=== PATIENT | male | born 1945 | race Caucasian/White ===

== ENCOUNTER → 2017-07-27 | Outpatient (CLI) | payer MEDICARE, BC ==
--- NOTE | 2017-07-27 08:59 | FL ---
EXAMINATION TYPE: FL barium swallow DATE OF EXAM: 07/27/2017 CLINICAL HISTORY: Dysphasia per order. Food getting stuck mid to distal esophagus increasing in sever ity over last several months history of reflux and cough per patient. History of prior scopes per pat ient. TECHNIQUE: A double contrast esophagram is performed utilizing air and barium. A total of 47 second s of fluoroscopic time was utilized during procedure. Approximately 70 spot images were saved during procedure and sent to PACS. COMPARISON: CT abdomen pelvis November 02, 2013 FINDINGS: The esophagus shows some episodes of dysmotility with abnormal secondary and tertiary contr actions. There is a small sliding-type hiatal hernia is seen. No suspicious intraluminal mass or foca l stricture is identified. No significant gastroesophageal reflux was seen during real time performan ce of this study. IMPRESSION: Some esophageal dysmotility with small sliding-type hiatal hernia. No stricture is eviden t.
== END | disposition home or self-care (01) ==
LOC: RADFLMAIN 08:01
PROVIDERS: ATTEND Family Medicine
DX: K22.4 Dyskinesia of esophagus (principal); K44.9 Diaphragmatic hernia without obstruction or gangrene
CPT/HCPCS: 74220

== ENCOUNTER 2017-09-29 09:56 | Day surgery (SDC) | payer BC, MEDICARE ==
[2017-09-27 12:56] VITALS: BMI 43.5
[~2017-09-29 09:56] MED LIST: LACTATED RINGERS 1,000 ML IV SCH; LIDOCAINE 1% 20 ML VIAL (10MG/ML) FOR IV START INTRADERMA PRN
[2017-09-29 10:27] VITALS: TEMP 98
[2017-09-29] MEDS ORDERED: LIDOCAINE 1% INJ 10MG/ML (20 ML MDV) ONE (10:53)
[2017-09-29] MEDS ORDERED: PROPOFOL 10 MG/ML 20 ML VIAL IV ONE (10:53)
--- NOTE | 2017-09-29 11:16 | P.PCN ---
Date of Procedure: 09/29/17 Procedure(s) Performed: Brief history: Patient is a pleasant 72-year-old white male, scheduled for an elective upper endoscopy as well as colonoscopy as a part of evaluation of abdominal pain, intermittent dysphagia to solids and prior history of colon polyps. Last colonoscopy was 9 years ago. Procedure performed: Esophagogastroduodenoscopy with biopsy Colonoscopy with snare polypectomy Preoperative diagnosis: Intermittent dysphagia to solids History of colon polyps [place] [facility] [place] [facility] [place]: After informed consent was obtained from the patient was brought into the endoscopy unit and IV sedation was administered by anesthesia under continuous monitoring. Initially upper endoscopy was done. The Olympus GF 160 video endoscope was inserted inserted into the mouth and esophagus intubated without any difficulty and was gradually advanced into the stomach and duodenum and carefully examined. The bulb and second part of the duodenum appeared normal. The scope was then withdrawn into the stomach adequately insufflated with air and upon careful examination the antrum had mild gastritis and biopsies were done from this area. The body, cardia and fundus appeared normal. The scope was then withdrawn into the esophagus. The GE junction was located at 40 cm to the incisors. It appeared regular with no erythema erosions or ulcerations. Rest of the esophagus appeared normal. Labs were done from the distal esophagus to rule out eosinophilic esophagitis. Patient tolerated the procedure well. At this time the patient continued to remain sedation. Initial digital rectal examination was normal. Olympus CF 160 video colonoscope was then inserted into the rectum and gradually advanced to the cecum without any difficulty. Careful examination was performed as the scope was gradually being withdrawn. The prep was excellent. The cecum, ascending colon, appeared normal. In the hepatic flexure there was a 5 mm sessile polyp removed by snare polypectomy. In the transverse colon there were 2 polyps measuring 5 mm and 6 mm in size both of which were removed by snare polypectomy. In the descending colon there was another 5 mm 2 sessile polyps removed by snare polypectomy. The rest of the transverse colon, descending colon, sigmoid colon and rectum appeared normal. Retroflexion was performed in the rectum and no lesions were noted. Patient tolerated the procedure well. Impression: 1. Upper endoscopy revealed mild antral gastritis but no evidence of esophagitis or esophageal stricture 2. Colonoscopy revealed: a) 5 mm hepatic flexure polyp status post polypectomy b) 5 mm x 2 sessile transverse colon polyps status post polypectomy c) 5 mm 2 descending colon polyps status post polypectomy Recomm colonoscopy revealed endations: Findings of this examination were discussed with the patient as well as of his family. He was advised to follow with the biopsy results. If the biopsy shows a tubular adenoma, he can have a repeat colonoscopy in 3 years.
[2017-09-29 11:35] VITALS: BP 138/87; PULSE 64; RESP 18
== END 2017-09-29 12:22 | disposition home or self-care (01) ==
LOC: ORWHC2ENDO 09:56
PROVIDERS: ATTEND Internal Medicine Gastroenterology
DX: K29.50 Unspecified chronic gastritis without bleeding (principal); K31.7 Polyp of stomach and duodenum; D12.4 Benign neoplasm of descending colon; D12.3 Benign neoplasm of transverse colon; K63.5 Polyp of colon; Z86.010 Personal history of colon polyps; K21.9 Gastro-esophageal reflux disease without esophagitis; I10 Essential (primary) hypertension; E78.5 Hyperlipidemia, unspecified; M19.90 Unspecified osteoarthritis, unspecified site; E66.01 Morbid (severe) obesity due to excess calories; Z68.41 Body mass index [BMI] 40.0-44.9, adult; Z85.828 Personal history of other malignant neoplasm of skin; Z86.73 Personal history of transient ischemic attack (TIA), and cerebral infarction without residual deficits; Z79.899 Other long term (current) drug therapy; Z79.1 Long term (current) use of non-steroidal anti-inflammatories (NSAID); Z88.5 Allergy status to narcotic agent; Z88.1 Allergy status to other antibiotic agents
CPT/HCPCS: 88305; 45385; 43239; J2001; J2704

== ENCOUNTER → 2018-08-12 | Outpatient (CLI) | payer MEDICARE, BC ==
--- NOTE | 2018-08-12 12:39 | US ---
EXAMINATION TYPE: US kidneys/renal and bladder DATE OF EXAM: 08/12/2018 COMPARISON: CT here CLINICAL HISTORY: N28.1 Multiple cysts of left kidney found on MRI; patient stated had prior renal st ones; bilateral flank pain EXAM MEASUREMENTS: Right Kidney: 13.5 x 6.9 x 7.1 cm Left Kidney: 13.4 x 9.0 x 6.3 cm Post Void Residual Volume: 38.6 mL Right Kidney: No hydronephrosis or masses seen Left Kidney: 2 simple cysts noted upper pole with larger cyst = 4.0 x 3.9 x 4.1cm. Bladder: wnl; prominent prostate is noted posteriorly Bilateral Jets seen: yes Normal Post Void Residual: yes Aorta Assessment per order: patient not NPO for aorta US, however, mid distal aorta portion is noted with left renal images, and aorta size = 2.1 x 2.3cm and color flow patency and PW Doppler is documen pradeep in this visualized portion. There is no evidence for hydronephrosis at this point in time. No nephrolithiasis is seen. The urina ry bladder is anechoic. Bilateral ureteral jets are seen. IMPRESSION: 1. Simple renal cysts as noted.
== END | disposition home or self-care (01) ==
LOC: RADUSWWP 11:01
PROVIDERS: ATTEND Family Medicine
DX: N28.1 Cyst of kidney, acquired (principal)
CPT/HCPCS: 76770

== ENCOUNTER 2018-10-09 12:41 | Inpatient (IN) | payer MEDICARE, BC ==
[2018-10-09] MEDS ORDERED: RX INFO: IV CONTRAST WAS GIVEN 1 EACH MISC MISCELLANE PRN (13:07)
[2018-10-09 13:18] LABS: Basophils # (A) 0.1 k/uL (0-0.2); Basophils % (A) 1 %; Eosinophils # (A) 0.2 k/uL (0-0.7); Eosinophils % (A) 3 %; HCT 40.2 % (39.0-53.0); HGB 13.6 gm/dL (13.0-17.5); Lymphocytes # (A) 1.6 k/uL (1.0-4.8); Lymphocytes % (A) 23 %; MCH 29.4 pg (25.0-35.0); MCHC 33.9 g/dL (31.0-37.0); MCV 86.8 fL (80.0-100.0); Mean Platelet Volume 7.8; Monocytes # (A) 0.5 k/uL (0-1.0); Monocytes % (A) 7 %; Neutrophils # (A) 4.5 k/uL (1.3-7.7); Neutrophils % (A) 65 %; Platelet Count 161 k/uL (150-450); RBC 4.63 m/uL (4.30-5.90); RDW 15.4 % (11.5-15.5); WBC 6.9 k/uL (3.8-10.6)
[2018-10-09 13:26] LABS: INR 0.9 (<1.2); Partial Thromboplastin Time 22.4 sec (22.0-30.0); Prothrombin Time 10.1 sec (9.0-12.0)
[2018-10-09 13:29] LABS: ALT 22 U/L (21-72); AST 25 U/L (17-59); African American GFR (CKD) >90 (>60 ml/min/1.73 sqM); Albumin 3.7 g/dL (3.5-5.0); Alkaline Phosphatase 69 U/L (38-126); Anion Gap 10 mmol/L; Blood Urea Nitrogen 21 mg/dL (9-20); Calcium 9.2 mg/dL (8.4-10.2); Carbon Dioxide 24 mmol/L (22-30); Chloride 106 mmol/L (98-107); Glucose 155 mg/dL (74-99); Magnesium 1.6 mg/dL (1.6-2.3); Sodium 140 mmol/L (137-145); Total Bilirubin 0.6 mg/dL (0.2-1.3); Total Protein 6.3 g/dL (6.3-8.2)
[2018-10-09 13:31] LABS: Appearance,Urine Clear (Clear); Bilirubin,Urine Negative (Negative); Blood,Urine Trace (Negative); Color,Urine Yellow; Glucose,Urine (UA) Negative (Negative); Hyaline Casts,Urine 1 /lpf (0-2); Ketones,Urine Negative (Negative); Leukocyte Esterase,Urine Negative (Negative); Mucus,Urine Rare /hpf; Nitrite,Urine Negative (Negative); PH, Urine 5.5 (5.0-8.0); Protein,Urine 2+ (Negative); Specific Gravity,Urine 1.011 (1.001-1.035); Squamous Epithelial Cell,Urine <1 /hpf (0-4); Urobilinogen,Urine <2.0 mg/dL (<2.0); WBC,Urine 1 /hpf (0-5)
[2018-10-09] MEDS ORDERED: MORPHINE SULFATE 4 MG/ML SYRINGE IVP STA (14:04)
--- NOTE | 2018-10-09 14:34 | XR ---
EXAMINATION TYPE: XR chest 2V DATE OF EXAM: 10/09/2018 COMPARISON: 03/01/2017 HISTORY: 73-year-old male with cough and pain TECHNIQUE: PA and lateral views FINDINGS: Heart borderline enlarged. Aorta within normal limits. Mild diffuse interstitial prominence. Mild pat tracy left basilar opacity. No pleural effusion. IMPRESSION: Borderline heart size and chronic appearing changes though with some patchy left basilar atelectasis and/or early infiltrate.
--- NOTE | 2018-10-09 14:38 | CT ---
EXAMINATION TYPE: CT chest w con DATE OF EXAM: 10/09/2018 COMPARISON: 02/03/2012 HISTORY: 73-year-old male chest pain, murmur, rule out dissection TECHNIQUE: Contiguous axial scanning of the chest after the administration of 100 mL of Isovue 300. Coronal/sagittal reconstructions performed. CT DLP: 1290.6mGycm. Automatic exposure control utilized for a dose reduction. FINDINGS: Heart upper limits of normal in size without pericardial effusion. Aortic valvular calcifications are present as well as coronary vessel calcifications. Ascending aorta ectatic at 3.7 cm. There is variant takeoff of the left vertebral artery directly fro m the aortic arch. Ectasia upper descending thoracic aorta 3.4 cm. No abnormal mural based thickening to suggest acute intramural hematoma. No evidence for aortic disse ction. Mild bilateral gynecomastia. No thoracic lymphadenopathy by CT size criteria. Strandy bibasilar atelectasis both more focal mild patchy inferior lingular opacity also favored to r epresent atelectasis. Low attenuation of the hepatic parenchyma suggesting fatty infiltration. Partially visualized 4.6 cm left renal cyst. Cholecystectomy clips. Bones: Endplate spondylosis throughout the thoracic spine. Bridging changes compatible with dish. IMPRESSION: 1. No evidence for aortic dissection. 2. Ectatic ascending aorta (3.7 cm) and upper descending thoracic aorta at 3.4 cm. 3. Strandy bibasilar areas of atelectasis and more focal patchy inferior lingular opacity also favore d to represent atelectasis rather than infiltrate.
[2018-10-09] MEDS ORDERED: MAGNESIUM SULFATE-D5W PMX 1 GM in DEXTROSE/WATER 1 100ML.BAG IVPB ONE (15:12)
[2018-10-09] MEDS ORDERED: HEPARIN SODIUM,PORCINE 5,000 UNIT/ML 1 ML VIAL IV PRN (15:16)
[2018-10-09] MEDS ORDERED: HEPARIN SODIUM,PORCINE 5,000 UNIT/ML 1 ML VIAL IV ONE (15:16)
[2018-10-09] MEDS ORDERED: NALOXONE 0.4 MG/ML 1 ML VIAL IV PRN (15:21)
--- NOTE | 2018-10-09 15:21 | ED ---
Chest Pain HPI - General Chief Complaint: Chest Pain Stated Complaint: chest pain Time Seen by Provider: 10/09/18 12:56 Source: patient, EMS Mode of arrival: EMS Limitations: no limitations - History of Present Illness Initial Comments: The patient is a 73-year-old male who presents the emergency room with reported chest pain. He states he's had the chest pain for the past 4 days. He denies a previous history of cardiac disease. The pain has been intermittent. He states that it is substernal with radiation to the middle of his back. He denies any numbness or tingling in his upper or lower extremities. Denies any weakness. There is no associated nausea, vomiting or abdominal pain. Today he was helping his daughter to do some work outside. States that when he lifted a ladder he had acute onset of the pain. Does admit that it took his breath away. He denies a cough, hemoptysis or pleuritic chest pain. Does not describe it as a ripping or tearing sensation. Denies any lower extremity edema. No calf pain. No history of DVTs or PEs. No recent surgery or prolonged immobility. EMS was called. They did provide him with an aspirin. Patient arrives to the emergency room and states that his pain is minimally present. He denies any additional symptoms include headache, visual changes, unilateral numbness or weakness. He has a large family history of cardiac disease. There are no alleviating, precipitating or modifying factors - Related Data Home Medications Medication Instructions Recorded Confirmed Lisinopril [Zestril] 20 mg PO HS 11/02/13 10/09/18 Multivitamin [Men's Multi-Vitamin] 1 tab PO DAILY 04/01/15 10/09/18 Cholecalciferol [Vitamin D3] 2,000 unit PO DAILY 09/30/15 10/09/18 Meloxicam [Mobic] 15 mg PO DAILY 03/01/17 10/09/18 Cyanocobalamin [Vitamin B-12 1,000 mcg SQ QMONTH 09/27/17 10/09/18 Injection] Cyanocobalamin (Vitamin B-12) 2,000 mcg PO DAILY 10/09/18 10/09/18 [Vitamin B-12] Omeprazole 20 mg PO DAILY 10/09/18 10/09/18 Tamsulosin HCl [Flomax] 0.4 mg PO DAILY 10/09/18 10/09/18 Allergies Allergy/AdvReac Type Severity Reaction Status Date / Time azithromycin [From Zithromax] AdvReac Nausea & Verified 10/09/18 13:26 Vomiting codeine AdvReac Nausea & Verified 10/09/18 13:26 Vomiting Review of Systems ROS Statement: Those systems with pertinent positive or pertinent negative responses have been documented in the HPI. ROS Other: All systems not noted in ROS Statement are negative. EKG Findings - EKG Comments: EKG Findings:: EKG demonstrates a normal sinus rhythm with a ventricular rate of 76. WA interval 204. QRS 110. QTc 456. EKG demonstrates a incomplete right bundle branch block. No ST segment elevations. There are inverted T waves in leads 3 and V6 Past Medical History Past Medical History: Cancer, CVA/TIA, Eye Disorder, GERD/Reflux, Hyperlipidemia, Hypertension, Osteoarthritis (OA), Prostate Disorder, Skin Disorder Additional Past Medical History / Comment(s): TIA yrs. 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 VERONICA CATARACT Past Anesthesia/Blood Transfusion Reactions: No Reported Reaction Past Psychological History: No Psychological Hx Reported Smoking Status: Never smoker Past Alcohol Use History: None Reported Past Drug Use History: None Reported - Past Family History Father Family Medical History: Congestive Heart Failure (CHF), CVA/TIA Additional Family Medical History / Comment(s): at age 68 Brother(s) Family Medical History: Cancer, COPD, Diabetes Mellitus Additional Family Medical History / Comment(s): heart problems Mother Family Medical History: Myocardial Infarction ([place]) Additional Family Medical History / Comment(s): at 79 w/ [place] General Exam Limitations: no limitations General appearance: alert, in no apparent distress Head exam: Present: atraumatic, normocephalic, normal inspection Eye exam: Present: normal appearance, PERRL, EOMI. Absent: scleral icterus, conjunctival injection, periorbital swelling ENT exam: Present: normal exam, mucous membranes moist Neck exam: Present: normal inspection. Absent: tenderness, meningismus, lymphadenopathy Respiratory exam: Present: normal lung sounds bilaterally. Absent: respiratory distress, wheezes, rales, rhonchi, stridor Cardiovascular Exam: Present: regular rate, normal rhythm, systolic murmur. Absent: diastolic murmur, rubs, gallop, clicks GI/Abdominal exam: Present: soft, normal bowel sounds, other (obese). Absent: distended, tenderness, guarding, rebound, rigid Extremities exam: Present: normal inspection, full ROM, normal capillary refill. Absent: tenderness, pedal edema, joint swelling, calf tenderness Back exam: Present: normal inspection Neurological exam: Present: alert, oriented X3, CN II-XII intact Psychiatric exam: Present: normal affect, normal mood Skin exam: Present: warm, dry, intact, normal color. Absent: rash Course Vital Signs 10/09/18 10/09/18 10/09/18 12:43 13:11 13:16 Temperature 97.9 F Pulse Rate 79 73 Respiratory 18 16 Rate Blood Pressure 137/80 140/88 Blood Pressure 137/78 [Left Arm] Blood Pressure 140/88 [Right Arm] O2 Sat by Pulse 95 97 Oximetry 10/09/18 10/09/18 10/09/18 14:39 15:33 16:29 Temperature Pulse Rate 72 73 77 Respiratory 18 16 16 Rate Blood Pressure 147/85 98/72 129/74 Blood Pressure [Left Arm] Blood Pressure [Right Arm] O2 Sat by Pulse 95 98 94 L Oximetry 10/09/18 17:36 Temperature 97.9 F Pulse Rate 72 Respiratory 16 Rate Blood Pressure 140/87 Blood Pressure [Left Arm] Blood Pressure [Right Arm] O2 Sat by Pulse 94 L Oximetry Chest Pain MDM - Differential Diagnosis AMI, ACS, PE, Pleurisy-Other, Valvular Heart Disease, GERD, Thoracic Aortic Dissection, Pneumothorax/Tension - MDM The patient was seen by myself in room 6. Upon arrival he is hooked up to continuous pulse ox and cardiac monitoring. A 12-lead EKG is performed which demonstrates a normal sinus rhythm. No acute ST segment elevations or depressions concerning for infarction. Bilateral blood pressures are obtained and are equal. Patient states that his pain is improved at this time however he is having chronic low back pain. I did provide the patient with 4 mg of morphine IV which had been previously established by EMS. Laboratory studies were conducted. A chest x-ray was performed. The patient does have a murmur identified on clinical exam. Because of this with the patient's reported radiation to the back I did recommend a CT of the thorax. The patient agreed to this. The results are reviewed. The patient's troponin does come back elevated. I did discuss this with the patient. I placed him on heparin at this time. He does have a history of pernicious anemia however his hemoglobin is 13.6. He recently had an epidural injection of the spine however no invasive spinal procedures. Denies a history of previous lifethreatening bleeding. I called and discussed the case with Dr. Gillespie who accepted admission of the patient. I will place cardiology on consult. The patient will be made nothing by mouth at midnight and we will continue to trend his troponins. Patient remained in stable condition was transported to the floor Disposition Clinical Impression: NSTEMI (non-ST elevation myocardial infarction), Chest pain, Unstable angina pectoris Disposition: ADMITTED IP TO THIS HOSP Condition: Stable Is patient prescribed a controlled substance at d/c from ED?: No Decision to Admit Reason: Admit from EC Decision Date: 10/09/18 Decision Time: 15:21
[2018-10-09] MEDS: HEPARIN SOD,PORK IN 0.45% NACL 25,000 UNIT in 0.45% NACL 1 250ML.BAG IV SCH (15:24)
[2018-10-09] MEDS ORDERED: TAMSULOSIN 0.4 MG CAP.ER.24H PO SCH (21:00)
[2018-10-09] MEDS ORDERED: LISINOPRIL 20 MG TAB PO SCH (21:00)
[2018-10-09] MEDS: TAMSULOSIN 0.4 MG CAP.ER.24H PO SCH (21:05)
[2018-10-09] MEDS: NITROGLYCERIN SL TABS 0.4 MG TAB SUBLINGUAL PRN ×3 (23:46→23:59)
[2018-10-09] MEDS ORDERED: TEMAZEPAM 15 MG CAP PO PRN (23:52)
[2018-10-09] MEDS ORDERED: ALPRAZolam 0.25 MG TAB PO PRN (23:52)
[2018-10-10] MEDS: MORPHINE SULFATE 2 MG/ML SYRINGE IVP PRN ×4 (00:12→20:25)
--- NOTE | 2018-10-10 00:30 | HP ---
HISTORY AND PHYSICAL DATE OF SERVICE: 10/09/2018 CHIEF COMPLAINT: Chest pain. HISTORY OF PRESENT ILLNESS: This 73-year-old gentleman with a past medical history of multiple medical problems including CVA, TIA, GERD, hypertension, hyperlipidemia, DJD being followed by Dr. Weathers in the outpatient is complaining of chest pain. The pain was present for 4 days. The patient had a gas bubble feeling like in the stomach and subsequently substernal pain which was heavy in character radiating sometimes sharp in character which radiated to the middle of the back. The patient came to [facility] and admitted for further evaluation and treatment. Evaluation showed EKG which showed diffuse ST-T changes, some mild right bundle branch block and the troponin is found to be 0.056 and 0.074. Cardiology consultation to evaluate and treatment. There is no history of fever, rigors. No history of headache, loss of consciousness, no history of any hematochezia, melena or shortness of breath at this time. The CT scan of the chest was done in the ER which showed no evidence of aortic dissection but ectatic ascending aorta 3 point cm and upper present and thoracic aorta 3.4 cm and bibasilar strandy areas atelectasis also noted. Please refer to the chest x-ray report for further details. PAST MEDICAL HISTORY: History of CVA, TIA, history of GERD, hypertension, hyperlipidemia, DJD, history of prostate disorder, history of transient ischemic attack. MEDICATIONS ARE: Prior to admission: 1. Flomax 0.4 daily. 2. Omeprazole 20 mg p.o. daily. 3. Multivitamins one p.o. daily. 4. Mobic 15 mg p.o. daily. 5. Zestril 20 mg p.o. q.h.s. 6. Vitamin B1 1000 mcg Q subcu monthly. 7. Vitamin B12 2000 mcg p.o. subcu daily. 8. Vitamin D3 2000 daily. ALLERGIES: ZITHROMAX AND CODEINE. FAMILY HISTORY: History of myocardial infarction in the family. SOCIAL HISTORY: No history of smoking. No history of alcohol intake. REVIEW OF SYSTEMS: ENT: No diminished vision or hearing. Cardiovascular system: As mentioned earlier. RESPIRATORY: As mentioned earlier. GI no nausea or vomiting. no dysuria or hematuria. NERVOUS SYSTEM: No numbness or weakness. ALLERGY/IMMUNOLOGY: No asthma or hayfever. MUSCULOSKELETAL as mentioned earlier. HEMATOLOGY/ONCOLOGY: No history of anemia. ENDOCRINE: No history of diabetes or hypothyroidism. CONSTITUTIONAL: As mentioned earlier. DERMATOLOGY negative. RHEUMATOLOGY: Negative. PSYCHIATRIC: As mentioned. PHYSICAL EXAMINATION: Alert and oriented times three. Pulse is 73, blood pressure 142/68, respiration 18, temperature 98.1, pulse ox 94% on room air. HEENT: Conjunctivae normal. Oral mucosa moist. NECK is no jugular venous distention. No carotid bruit. No lymph node enlargement. Cardiovascular system: S1, S2 muffled. No S3, no S4. RESPIRATORY: Breath sounds diminished in the bases. A few scattered rhonchi. No crackles. ABDOMEN: Soft, obese, nontender. No mass palpable. No guarding. No rigidity. No mass palpable. LEGS: No edema. No swelling. NERVOUS SYSTEM: Higher functions as mentioned earlier, moves all 4 limbs. No focal motor or sensory deficits. LYMPHATICS: No lymph nodes palpable in the neck, axillae or groin. JOINTS: No active deforming arthropathy. LABS: At this time shows WBC 6.9, hemoglobin 13.6, sodium 140, potassium 4, glucose 155. Troponin 0.05, 0.049. ASSESSMENT: 1. Chest pain, back pain, possible acute non ST-segment elevation myocardial infarction. 2. Troponin elevated up to 0.056. 3. Ectatic aorta. 4. Possible gastroesophageal reflux disease. 5. History of cerebrovascular accident, transient ischemic attack. 6. History of gastroesophageal reflux disease. 7. History of hyperlipidemia. 8. History of hypertension. 9. History of degenerative joint disease. 10.History of transient ischemic attack. 11.History of pernicious anemia on monthly injections. 12.History of degenerative joint disease. 13.History of cholecystectomy. 14.Bowel resection. 15.Obesity with body mass index of 46.2. RECOMMENDATIONS AND DISCUSSION: In this 73-year-old gentleman who presented with multiple complex medical issues, we will monitor the patient closely, continue the current medications, management and symptomatic treatment. I would recommend IV heparin drip, rule out possible myocardial infarction. Otherwise, we will monitor the patient closely and cardiology consultation. Prognosis guarded because of multiple complex medical issues. I would also recommend a 2D echo with Doppler and continue to monitor. The patient will require further evaluation until elicited the exact etiology for the elevated troponin. We will closely follow with Cardiology. Prognosis guarded. Discussed with the patient who understands and agrees. Please note there is no evidence of dissection in the CT scan. Copy of dictation being forwarded to Dr. Weathers's office. MMODL / IJN: [id number] /
[2018-10-10 04:45] LABS: Basophils # (A) 0.1 k/uL (0-0.2); Basophils % (A) 1 %; Eosinophils # (A) 0.3 k/uL (0-0.7); Eosinophils % (A) 5 %; HCT 39.7 % (39.0-53.0); HGB 13.4 gm/dL (13.0-17.5); Lymphocytes # (A) 1.7 k/uL (1.0-4.8); Lymphocytes % (A) 26 %; MCH 29.9 pg (25.0-35.0); MCHC 33.6 g/dL (31.0-37.0); MCV 89.1 fL (80.0-100.0); Mean Platelet Volume 7.5; Monocytes # (A) 0.4 k/uL (0-1.0); Monocytes % (A) 7 %; Neutrophils # (A) 3.8 k/uL (1.3-7.7); Neutrophils % (A) 59 %; Platelet Count 156 k/uL (150-450); RBC 4.46 m/uL (4.30-5.90); RDW 15.4 % (11.5-15.5); WBC 6.5 k/uL (3.8-10.6)
[2018-10-10 04:55] LABS: African American GFR (CKD) >90 (>60 ml/min/1.73 sqM); Anion Gap 4 mmol/L; Blood Urea Nitrogen 22 mg/dL (9-20); Calcium 8.8 mg/dL (8.4-10.2); Carbon Dioxide 28 mmol/L (22-30); Chloride 106 mmol/L (98-107); Glucose 147 mg/dL (74-99); Potassium 4.3 mmol/L (3.5-5.1); Sodium 138 mmol/L (137-145)
[2018-10-10] MEDS ORDERED: ALPRAZolam 0.25 MG TAB PO PRN (07:54)
[2018-10-10] MEDS ORDERED: ALPRAZolam 0.5 MG TAB PO PRN (07:54)
[2018-10-10] MEDS ORDERED: SODIUM CHLORIDE 0.9% 1,000 ML in EMPTY BAG 1 BAG IV ONE (07:54)
[2018-10-10] MEDS ORDERED: ATORVASTATIN 80 MG TAB PO STA (07:57)
[2018-10-10] MEDS ORDERED: ASPIRIN 325 MG TAB PO STA (07:57)
[2018-10-10 08:17] LABS: Glucose,Whole Blood 127 mg/dL (75-99)
[2018-10-10] MEDS: MULTIVITAMINS, THERA 1 EACH TAB PO SCH (08:20)
[2018-10-10] MEDS: PANTOPRAZOLE 40 MG TABLET PO SCH (08:20)
[2018-10-10] MEDS: CHOLECALCIFEROL 1,000 UNIT TAB PO SCH (08:20)
[2018-10-10] MEDS ORDERED: CYANOCOBALAMIN 1,000 MCG/ML 1 ML VIAL SQ SCH (09:00)
[2018-10-10] MEDS ORDERED: MELOXICAM 7.5 MG TAB PO SCH (09:00)
[2018-10-10] MEDS ORDERED: TAMSULOSIN 0.4 MG CAP.ER.24H PO SCH (09:00)
--- NOTE | 2018-10-10 11:42 | CONS ---
CONSULTATION Alirio Pimentel is a 73-year-old gentleman, a patient of Dr. Jose Little who came into the hospital with complaints of chest pressure and shortness of breath. This gentleman is morbidly obese, weighs over 340 pounds. He was trying to do something with the roof and he picked up a 30 foot ladder and he tried to do some physical activity with it, felt very exhausted, had chest pain and came into the hospital. He has multiple medical problems in the form of a TIA, hypertension, hyperlipidemia, degenerative joint disease and also gastroesophageal reflux disease. He had a dobutamine echo that was performed in late 2016 which did not reveal ischemia. At the time of my evaluation, he is comfortable, resting without symptoms. Troponin shows borderline enlargement. Patient had a CT scan of the chest done and there is no evidence of any aortic pathology noted. There is mild ectasia of the aorta noted. He is asymptomatic. His troponins are up to 0.05 and 0.07. PAST MEDICAL HISTORY: 1. History of a normal dobutamine stress echo in February 2017. 2. Hypertension. 3. Hyperlipidemia. 4. Question of TIA in the past. Details are unclear. He also had some skin cancer. 5. He is status post bilateral total knee arthroplasty, had some chronic lower extremity edema. MEDICATIONS: At home include Flomax, meloxicam, vitamin supplements, lisinopril 20 mg daily. ALLERGIES: ZITHROMAX and CODEINE. PHYSICAL EXAMINATION: Blood pressure is 120/70, pulse rate 70 per minute, regular. HEENT: Unremarkable. Fundus was not examined by me. Neck is supple. There is no clear-cut JVD. Heart exam reveals S1, S2 with distant heart sounds. There is an ejection systolic murmur audible at the base with preserved second heart sounds. Lungs reveal diminished air entry. Abdomen is soft. Lower extremities reveal diminished pulses and bilateral trace edema. Central nervous system grossly, no focal deficits. EKG revealed sinus mechanism, incomplete right bundle branch block pattern, nonspecific T-wave changes. LABORATORY DATA: Suggests equivocal troponins. IMPRESSION: 1. Chest pain with equivocal troponin rise suggestive of non-ST elevation myocardial infarction. 2. Hypertension. 3. Obesity. 4. Hyperlipidemia. 5. History of degenerative joint disease. RECOMMENDATIONS: I am recommending coronary angiography. Rationale, risks, benefits and options explained. I will try and perform this from the right radial or left radial approach. Patient understands risks, benefits, options and wishes to proceed with the procedure which will be performed later today. MMODL / IJN: [id number] /
--- NOTE | 2018-10-10 12:19 | ECHOF ---
Referral Reason:nstemi MEASUREMENTS -------- HEIGHT: 185.4 cm WEIGHT: 158.8 kg BP: 120/66 RVIDd: 3.8 cm (< 3.3) IVSd: 1.6 cm (0.6 - 1.1) LVIDd: 6.5 cm (3.9 - 5.3) LVPWd: 1.6 cm (0.6 - 1.1) IVSs: 2.1 cm LVIDs: 4.0 cm LVPWs: 2.3 cm LA Diam: 4.3 cm (2.7 - 3.8) LAESV Index (A-L): 32.72 ml/m Ao Diam: 4.1 cm (2.0 - 3.7) AV Cusp: 2.0 cm (1.5 - 2.6) MV EXCURSION: 20.824 mm (> 18.000) MV EF SLOPE: 78 mm/s (70 - 150) EPSS: 1.1 cm MV E Brenton: 0.75 m/s MV DecT: 236 ms MV A Brenton: 0.82 m/s MV E/A Ratio: 0.91 AV maxP.03 mmHg AV meanP.02 mmHg RAP: 5.00 mmHg RVSP: 28.02 mmHg FINDINGS -------- Sinus rhythm. This was a technically difficult study with suboptimal views. The left ventricle is moderately dilated. There is moderate concentric left ventricular hypertrophy . Overall left ventricular systolic function is normal with, an EF between 55 - 60 %. The right ventricle is moderately enlarged. LA is midly dilated 29-33ml/m2. The right atrium is normal in size. 5 ml of Lumason was utilized for enhancement of images. Interatrial and interventricular septum intact. There is mild aortic valve sclerosis. There is mild aortic stenosis present. Peak/mean gradient a cross the Aortic Valve is 25.03mmHg / 15.02mmHg. The mitral valve leaflets are mildly thickened. Mild mitral annular calcification present. Mild tricuspid regurgitation present. Right ventricular systolic pressure is normal at < 35 mmHg. Trace/mild (physiologic) pulmonic regurgitation. The aortic root is dilated measuring 4.1cm. IVC Not well visulized. There is no pericardial effusion. CONCLUSIONS -------- 1. Sinus rhythm. 2. This was a technically difficult study with suboptimal views. 3. The left ventricle is moderately dilated. 4. There is moderate concentric left ventricular hypertrophy. 5. Overall left ventricular systolic function is normal with, an EF between 55 - 60 %. 6. The right ventricle is moderately enlarged. 7. LA is midly dilated 29-33ml/m2. 8. The right atrium is normal in size. 9. 5 ml of Lumason was utilized for enhancement of images. 10. Interatrial and interventricular septum intact. 11. There is mild aortic valve sclerosis. 12. There is mild aortic stenosis present. 13. Peak/mean gradient across the Aortic Valve is 25.03mmHg / 15.02mmHg. 14. The mitral valve leaflets are mildly thickened. 15. Mild mitral annular calcification present. 16. Mild tricuspid regurgitation present. 17. Right ventricular systolic pressure is normal at < 35 mmHg. 18. Trace/mild (physiologic) pulmonic regurgitation. 19. The aortic root is dilated measuring 4.1cm. 20. IVC Not well visulized. 21. There is no pericardial effusion. [employer]ICATING UNIT SUPERVISOR: Neva Heck RDCS
[2018-10-10] MEDS ORDERED: NITROGLYCERIN SL TABS 0.4 MG TAB SUBLINGUAL ONE (13:45)
[2018-10-10] MEDS ORDERED: LIDOCAINE 1% INJ 10MG/ML (20 ML MDV) SQ ONE (13:46)
[2018-10-10] MEDS ORDERED: MIDAZOLAM (PF) 2 MG/2 ML VIAL IV ONE ×2 (13:46→13:53)
[2018-10-10] MEDS ORDERED: VERAPAMIL SYRINGE (5 MG/10 ML) INTRAARTER ONE (13:48)
[2018-10-10] MEDS ORDERED: IOPAMIDOL-370 100ML BTL INJ ONE (14:11)
[2018-10-10] MEDS ORDERED: IV FLUID CONTINUATION 1,000 ML IV ONE (14:12)
--- NOTE | 2018-10-10 15:14 | AN ---
ANGIOGRAPHY REPORT DATE OF SERVICE: 10/10/2018. PROCEDURE: Coronary angiography. PERFORMED BY: Dr. Bianca Sprague. Moderate conscious sedation time was 29 minutes. Patient was administered Versed. Oxygen saturation, hemodilution, EKG were monitored closely. CLINICAL INFORMATION: Mr. Alirio Pimentel is a morbidly obese patient with hypertension, probable hyperlipidemia who came into the hospital with episode of chest pain after lifting some heavy ladder. He was advised coronary angiography because of his exertional chest pain and mildly elevated troponin. Risks, benefits, options, rationale were explained to the patient. He understood all details and wished to proceed with the procedure. He is a very obese man, I could not feel right radial pulse and the femoral pulses were impossible and the left radial pulse was palpable. PROCEDURE NOTE: Under local anesthesia and strict aseptic precautions, a 6-Yi introducer was placed in the left radial artery. Using standard Julito catheters, I performed coronary angiography. I had difficulty getting into the ascending aorta. Coronary angiography was performed and then I tried to advance the catheter into the LV to check pressures but it was difficult. The patient has heavily calcified coronary system. He; however, tolerated the procedure well. The sheath was taken out and a TR band applied, which was a large TR band. Oxygen saturation of the fingers was 96%. He was sent to the room in stable condition. His LV pressures were not obtained and LV-gram was not obtained. CORONARY ANGIOGRAPHY FINDINGS: RIGHT CORONARY ARTERY: A very dominant vessel, very large in caliber and distribution, supplies a sizable amount of myocardium. Distally bifurcates into 3 branches, all of which supply a sizable amount of myocardium. There are multiple irregularities but no significant disease and there is moderate amount of calcification noted in the RCA in the midportion. LEFT MAIN CORONARY ARTERY: Long patent disease-free vessel that bifurcates into LAD and circumflex. LEFT ANTERIOR DESCENDING CORONARY ARTERY: Good caliber vessel, extends along the anterior wall. It gives off a small diagonal branch and a septal branch and then there is 80% stenosis and just at the stenosis is a small diagonal and immediately involving the stenosis is third diagonal branch is of good caliber and distribution. The LAD then runs all the way to the apex to supply a sizable amount of myocardium. There are at least three branches that are involved at the site of the lesion. The LAD is one and the two diagonals. All three of them were involved in the diseased area. LEFT POSTERIOR CIRCUMFLEX CORONARY ARTERY: Technically nondominant vessel, gives off a single obtuse marginal, runs in the AV groove and gives off a left atrial circumflex branch. There are minor irregularities. No significant disease in the circumflex system. FINAL IMPRESSION: This patient has a 80% lesion involving the mid left anterior descending artery that also involves the two diagonal branches. Heavily calcified right coronary artery without significant disease and nondominant circumflex is also free of significant disease. LV pressures were not obtained and LV-gram was not performed. RECOMMENDATIONS: This is a very high risk patient in terms of being able to get a good guide support from the radial approach. He has a bifurcation lesion with at least three branches. I will obtain an opinion from Cardiac Surgery to see if he is a viable candidate to have at least 2 or 3 grafts. Hopefully, he can have an off pump CABG with a CHE graft to the LAD and diagonal. If this can be performed, it would probably be the best approach. I discussed my thoughts in detail with the patient and and will request Dr. Fallon to see the patient. If surgery is refused, then I will explore the percutaneous options. I discussed my thoughts in detail with the patient and family. MMODL / IJN: [id number] /
[2018-10-10] MEDS ORDERED: PHENYLEPHRINE 10 MG/ML VIAL IV ONE (17:14)
[2018-10-10] MEDS ORDERED: MD COMMUNICATION TO PHARMACY 1 EACH MISC PO ONE ×2 (17:14)
[2018-10-10] MEDS ORDERED: DEXTROSE 5% IN WATER 1,000 ML with POTASSIUM CHLORIDE 110 MEQ, MAGNESIUM SULFATE 16 MEQ... IV SCH ×5 (17:15)
[2018-10-10] MEDS ORDERED: DEXTROSE 5% IN WATER 1,000 ML with POTASSIUM CHLORIDE 25 MEQ, SODIUM CHLORIDE 2.5MEQ/ML... IV SCH ×6 (17:15)
--- NOTE | 2018-10-10 17:32 | P.GSCN ---
History of Present Illness Consult date: 10/10/18 Reason for Consult: Coronary artery disease, surgical recommendations Requesting physician: Sean Sprague History of present illness: This is a 73-year-old gentleman who follows with Dr. Triny Olmstead on an outpatient basis. He has a previous medical history of pernicious anemia, hypertension, hyperlipidemia, questionable TIA, morbid obesity, basal cell skin cancer greater than 5 years ago with removal, and significant family history of coronary artery disease with 1 brother with premature coronary artery disease having had a CABG in his early 50s. This gentleman reported having intermittent chest pain radiating to his back over the prior 3 today period. He associated it with gas pains, however it became progressively worse with activity and became associated with shortness of breath. He denied any nausea, dizziness, lightheadedness, or any other associated symptoms. He presented to [facility] emergency room. 12-lead EKG was completed and demonstrated nonspecific ST changes. Troponins were drawn and were mildly elevated at 0.4. He was admitted for evaluation and treatment, including consultation placed for cardiology. Echocardiogram was completed demonstrating normal left ventricular systolic function with an EF 55-60%, mild aortic stenosis with peak/mean gradients 25.03 mmHg/15.02 mmHg, mild mitral annular calcification, and mild tricuspid regurgitation. He was recommended to undergo heart catheterization which was completed today by Dr. Sprague and which demonstrated mid LAD stenosis of 75% with an 80% stenosis in a small diagonal branch at a bifurcation site with 2 other branches. There was no other high-grade stenosis. Due to the anatomy consultation was placed for Dr. Fallon from cardiothoracic surgery regarding surgical recommendations. Review of Systems Review of systems was completed and was negative except as noted. - Cardiovascular Reports chest pain, Reports edema, Reports shortness of breath Past Medical History Past Medical History: Cancer, CVA/TIA, Eye Disorder, GERD/Reflux, Hyperlipidemia, Hypertension, Osteoarthritis (OA), Prostate Disorder, Skin Disor sierra Additional Past Medical History / Comment(s): TIA yrs. 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 Past Drug Use History: None Reported - Past Family History Father Family Medical History: Congestive Heart Failure (CHF), CVA/TIA Additional Family Medical History / Comment(s): at age 68 Brother(s) Family Medical History: Cancer, COPD, Diabetes Mellitus Additional Family Medical History / Comment(s): heart problems; one brother had CABG in his 50s Mother Family Medical History: Myocardial Infarction ([place]) Additional Family Medical History / Comment(s): at 79 w/ [place] Medications and Allergies Home Medications Medication Instructions Recorded Confirmed Type Lisinopril [Zestril] 20 mg PO HS 11/02/13 10/09/18 History Multivitamin [Men's Multi-Vitamin] 1 tab PO DAILY 04/01/15 10/09/18 History Cholecalciferol [Vitamin D3] 2,000 unit PO DAILY 09/30/15 10/09/18 History Meloxicam [Mobic] 15 mg PO DAILY 03/01/17 10/09/18 History Cyanocobalamin [Vitamin B-12 1,000 mcg SQ QMONTH 09/27/17 10/09/18 History Injection] Cyanocobalamin (Vitamin B-12) 2,000 mcg PO DAILY 10/09/18 10/09/18 History [Vitamin B-12] Omeprazole 20 mg PO DAILY 10/09/18 10/09/18 History Tamsulosin HCl [Flomax] 0.4 mg PO DAILY 10/09/18 10/09/18 History Allergies Allergy/AdvReac Type Severity Reaction Status Date / Time azithromycin [From Zithromax] AdvReac Nausea & Verified 10/09/18 13:26 Vomiting codeine AdvReac Nausea & Verified 10/09/18 13:26 Vomiting Surgical - Exam Vital Signs Temp Pulse Resp BP Pulse Ox 97.9 F 79 18 137/80 95 10/09/18 12:43 10/09/18 12:43 10/09/18 12:43 10/09/18 12:43 10/09/18 12:43 - General well developed, well nourished, no distress, no pain, obese - Eyes PERRL, normal ocular movement - ENT no hearing loss - Neck no masses, no bruits, trachea midline - Respiratory Lungs sounds clear bilaterally. Respirations even, nonlabored. Currently on room air with oxygen saturation 92%. No chest wall deformities although patient does have a very round belly pushing up into his chest while sitting. - Cardiovascular S1, S2 present. Regular rate and rhythm, sinus rhythm on telemetry. Palpable peripheral pulses bilaterally. Bilateral lower extremity edema present. No calf pain or tenderness noted. Positive lower extremity varicosities noted. - Abdomen Very round abdomen Abdomen: soft, non tender, bowel sounds - Genitourinary Deferred - Rectum Deferred - Integumentary Left radial artery heart catheterization site well approximated, T Band in place no rash, no growths, no abnormal pigmentation - Neurologic normal coordination, normal sensation - Musculoskeletal normal posture - Psychiatric oriented to time, oriented to person, oriented to place, speech is normal, memory intact Results - Labs 10/10/18 04:13 10/10/18 04:13 Abnormal Lab Results - Last 24 Hours (Table) 10/09/18 10/10/18 10/10/18 Range/Units 20:38 00:39 04:13 APTT 35.1 H (22.0-30.0) sec BUN (9-20) mg/dL Glucose (74-99) mg/dL POC Glucose (mg/dL) (75-99) mg/dL Troponin I 0.049 H* 0.045 H* (0.000-0.034) ng/mL 10/10/18 10/10/18 10/10/18 Range/Units 04:13 08:16 11:45 APTT 48.8 H (22.0-30.0) sec BUN 22 H (9-20) mg/dL Glucose 147 H (74-99) mg/dL POC Glucose (mg/dL) 127 H (75-99) mg/dL Troponin I (0.000-0.034) ng/mL Diabetes panel 10/10/18 Range/Units 04:13 Sodium 138 (137-145) mmol/L Potassium 4.3 (3.5-5.1) mmol/L Chloride 106 (98-107) mmol/L Carbon Dioxide 28 (22-30) mmol/L BUN 22 H (9-20) mg/dL Creatinine 0.88 (0.66-1.25) mg/dL Glucose 147 H (74-99) mg/dL Calcium 8.8 (8.4-10.2) mg/dL Calcium panel 10/10/18 Range/Units 04:13 Calcium 8.8 (8.4-10.2) mg/dL Pituitary panel 10/10/18 Range/Units 04:13 Sodium 138 (137-145) mmol/L Potassium 4.3 (3.5-5.1) mmol/L Chloride 106 (98-107) mmol/L Carbon Dioxide 28 (22-30) mmol/L BUN 22 H (9-20) mg/dL Creatinine 0.88 (0.66-1.25) mg/dL Glucose 147 H (74-99) mg/dL Calcium 8.8 (8.4-10.2) mg/dL Adrenal panel 10/10/18 Range/Units 04:13 Sodium 138 (137-145) mmol/L Potassium 4.3 (3.5-5.1) mmol/L Chloride 106 (98-107) mmol/L Carbon Dioxide 28 (22-30) mmol/L BUN 22 H (9-20) mg/dL Creatinine 0.88 (0.66-1.25) mg/dL Glucose 147 H (74-99) mg/dL Calcium 8.8 (8.4-10.2) mg/dL - Imaging Chest x-ray: report reviewed, image reviewed EKG: image reviewed Additional studies: Heart catheterization films reviewed with Dr. Fallon Assessment and Plan Assessment: 1. Coronary artery disease 2. Pernicious anemia 3. Hypertension 4. Hyperlipidemia 5. Questionable TIA in the past 6. Morbid obesity 7. History of basal cell skin cancer greater than 5 years ago with removal 8. Significant family history of coronary artery disease, 1 brother with premature coronary artery disease Plan: The patient was seen and examined at the bedside with Dr. Fallon. Chart/diagnostics were reviewed including heart catheterization and echocardiogram. We offered the patient coronary artery bypass graft surgery. The usual perioperative course was discussed in detail with the patient and his , all risks and benefits were reviewed, and consent was obtained to proceed with surgery. Preoperative testing was initiated. STS risk score will be calculated and discussed with the patient. Based on results of preoperative testing so far our plan is for off-pump coronary artery bypass graft surgery with left internal mammary artery harvest as well as possible endoscopic vein dorsey rvest tomorrow, 10/11/[address] Fallon. Continue aspirin, statin, beta car therapy. Heparin drip IV should be discontinued telephone information clerk to OR. The patient will be nothing by mouth after midnight. Encourage incentive spirometry practice. 5 m walk test was completed, #1 4.87 seconds, #2 3.63 seconds, #3 4.10 seconds. More recommendations to follow. Thank you Dr. Sprague for this consult. We look forward to working with you in the care of your patient. Time with Patient: Greater than 30
[2018-10-10] MEDS: METOPROLOL TARTRATE 12.5 MG TAB PO SCH ×2 (17:42→23:04)
[2018-10-10] MEDS: HEPARIN SOD,PORK IN 0.45% NACL 25,000 UNIT in 0.45% NACL 1 250ML.BAG IV SCH (17:43)
[2018-10-10] MEDS: SODIUM CHLORIDE 0.9% 1,000 ML IV SCH (17:43)
[2018-10-10 17:46] LABS: Basophils % (A) 0 %; Eosinophils # (A) 0.3 k/uL (0-0.7); Eosinophils % (A) 4 %; HCT 41.8 % (39.0-53.0); HGB 13.6 gm/dL (13.0-17.5); Lymphocytes # (A) 1.8 k/uL (1.0-4.8); Lymphocytes % (A) 24 %; MCH 28.8 pg (25.0-35.0); MCHC 32.6 g/dL (31.0-37.0); MCV 88.2 fL (80.0-100.0); Mean Platelet Volume 7.3; Monocytes # (A) 0.4 k/uL (0-1.0); Monocytes % (A) 5 %; Neutrophils # (A) 4.8 k/uL (1.3-7.7); Neutrophils % (A) 65 %; Platelet Count 156 k/uL (150-450); RBC 4.74 m/uL (4.30-5.90); RDW 14.1 % (11.5-15.5); WBC 7.3 k/uL (3.8-10.6)
[2018-10-10 18:05] LABS: ALT 47 U/L (21-72); AST 50 U/L (17-59); African American GFR (CKD) >90 (>60 ml/min/1.73 sqM); Albumin 3.8 g/dL (3.5-5.0); Alkaline Phosphatase 79 U/L (38-126); Anion Gap 9 mmol/L; Blood Urea Nitrogen 20 mg/dL (9-20); Calcium 8.8 mg/dL (8.4-10.2); Carbon Dioxide 23 mmol/L (22-30); Chloride 108 mmol/L (98-107); Cholesterol 198 mg/dL (<200); Glucose 137 mg/dL (74-99); HDL Cholesterol 49 mg/dL (40-60); LDL Cholesterol,Calculated 101 mg/dL (0-99); Magnesium 1.8 mg/dL (1.6-2.3); Potassium 4.1 mmol/L (3.5-5.1); Sodium 140 mmol/L (137-145); Total Bilirubin 0.7 mg/dL (0.2-1.3); Total Protein 6.3 g/dL (6.3-8.2); Triglycerides 240 mg/dL (<150)
[2018-10-10] MEDS: NITROGLYCERIN SL TABS 0.4 MG TAB SUBLINGUAL PRN ×3 (19:18→19:23)
[2018-10-10 20:26] LABS: Appearance,Urine Clear (Clear); Bilirubin,Urine Negative (Negative); Blood,Urine Trace (Negative); Color,Urine Yellow; Glucose,Urine (UA) Trace (Negative); Ketones,Urine Negative (Negative); Leukocyte Esterase,Urine Negative (Negative); Mucus,Urine Rare /hpf; Nitrite,Urine Negative (Negative); PH, Urine 5.5 (5.0-8.0); Protein,Urine 2+ (Negative); RBC,Urine 1 /hpf (0-5); Specific Gravity,Urine 1.041 (1.001-1.035); Squamous Epithelial Cell,Urine <1 /hpf (0-4); Urobilinogen,Urine <2.0 mg/dL (<2.0); WBC,Urine 1 /hpf (0-5)
[2018-10-10] MEDS: TAMSULOSIN 0.4 MG CAP.ER.24H PO SCH (20:26)
--- NOTE | 2018-10-10 20:31 | US ---
EXAMINATION TYPE: US carotid duplex BILAT DATE OF EXAM: 10/10/2018 COMPARISON: NONE CLINICAL HISTORY: Pre-Op Cardiac Surgery,Ankle Brachial Index (ELOY) . PreCABG EXAM MEASUREMENTS: RIGHT: Peak Systolic Velocity (PSV) cm/sec ----- Right CCA: 97.7 ----- Right ICA: 66.9 ----- Right ECA: 112.5 ICA/CCA ratio: 0.7 RIGHT: End Diastole cm/sec ----- Right CCA: 22.0 ----- Right ICA: 19.7 ----- Right ECA: 7.6 LEFT: Peak Systolic Velocity (PSV) cm/sec ----- Left CCA: 71.1 ----- Left ICA: 70.2 ----- Left ECA: 82.3 ICA/CCA ratio: 1.0 LEFT: End Diastole cm/sec ----- Left CCA: 20.6 ----- Left ICA: 21.9 ----- Left ECA: 12.0 VERTEBRALS (direction of flow): Right Vertebral: Antegrade Left Vertebral: Antegrade Mild plaque bilateral bifurcations. No evidence of increased velocities. No evidence of significant s tenosis IMPRESSION: There is antegrade flow in the vertebral arteries. The images and measurements suggest l ess than 15% stenosis in both internal carotid arteries. Criteria for Assigning % of Stenosis / Diameter reduction (Estimation based on the indirect measurements of the internal carotid artery velocities (ICA PSV). 1. Normal (no stenosis)=ICA PSV < 125 cm/s: ratio < 2.0: ICA EDV<40 cm/s. 2. Less than 50% stenosis=ICA PSV < 125 cm/s: ratio < 2.0: ICA EDV<40 cm/s. 3. 50 to 69% stenosis=ICA PSV of 125 to 230 cm/s: ration 2.0 ? 4.0: ICA EDV 40-100 cm/s. 4. Greater than 70% stenosis to near occlusion= ICA PSV > 230 cm/s: ratio > 4.0: ICA EDV > 100 cm/s. 5. Near occlusion= ICA PSV velocities may be low or undetectable: variable ratio and ICA EDV. 6. Total occlusion=unable to detect flow.
[2018-10-10 22:49] LABS: Partial Thromboplastin Time 48.5 sec (22.0-30.0); Prothrombin Time 10.3 sec (9.0-12.0)
[2018-10-10] MEDS: NITROGLYCERIN OINT 1 INCH/GM PACKET TOPICAL SCH (23:04)
[2018-10-10] MEDS: MUPIROCIN 2% OINT 22 GM TUBE NASAL SCH (23:04)
--- NOTE | 2018-10-11 00:03 | PN ---
PROGRESS NOTE DATE OF SERVICE: 10/10/2018. This 73-year-old gentleman who was admitted with chest pain, underwent cardiac catheterization. The troponin is found to be 0.045. The cardiac cath showed 80% lesion involving the mid LAD but also in all the 2 diagonal branches, heavily calcified right RCA without significant disease and nondominant circ was also free of significant disease. LV pressure were not obtained. Today, the patient is also complaining of severe chest pain which is felt in the anterior part. The patient being closely monitored at this time. PAST MEDICAL HISTORY: Reviewed. REVIEW OF SYSTEMS: CARDIOVASCULAR SYSTEM: as mentioned earlier. RESPIRATORY: As mentioned earlier. GI: As mentioned earlier. : As mentioned earlier. CENTRAL NERVOUS SYSTEM: No focal deficits. CURRENT MEDICATIONS ARE: Reviewed includin. Xanax 0.5 q.6h p.r.n. 2. Aspirin. 3. Lipitor. 4. Cefazolin. 5. Peridex. 6. Vitamin D3. 7. Vitamin B12. 8. Heparin IV. 9. Lactated Ringer's. 10.Lopressor. 11.Bactroban. 12.Narcan. 13.Nitrostat. 14.Nitro-Bid ointment. 15.Protonix. PHYSICAL EXAM: Patient is alert, oriented x3. Pulse 71, blood pressure 130/75, respiration 18, temperature 98.2, pulse ox 94% on 2 L. HEENT: Conjunctivae normal. NECK: No JVD. CARDIOVASCULAR: S1, S2 muffled. RESPIRATORY: Breath sounds diminished in the bases. [place] rhonchi and crackles. ABDOMEN: Soft, obese, nontender. Legs: No edema. No swelling. CENTRAL NERVOUS SYSTEM: No focal deficits. LABS: CBC within normal limits and glucose 137. ASSESSMENT: 1. Chest pain possible acute non ST elevation myocardial infarction status post cardiac cath and LAD stenosis. 2. Troponin elevated up to 0.056. 3. Continued ongoing chest pain. 4. Ectatic aorta. 5. Possible gastroesophageal reflux disease. 6. History of cerebrovascular accident/ transient ischemic attack. 7. History of gastroesophageal reflux disease. 8. Hyperlipidemia. 9. Hypertension. 10.History of degenerative joint disease. 11.History of transient ischemic attack. 12.History of pernicious anemia on monthly injections. 13.History of degenerative joint disease. 14.History of cholecystectomy. 15.History of bowel resection. 16.Obesity with body mass index of 46.2. RECOMMENDATIONS AND DISCUSSION: I recommend to continue current medications, management and treatment. Closely follow with Cardiology. Continue the heparin drip. Symptomatic treatment of the pain. If the pain is not improving, consider nitro drip and transferred to ICU possibly. Otherwise, a set of troponins. Guarded prognosis. Further recommendations to follow. Closely follow with Cardiology and Cardiothoracic surgery. MMKIARAL / IJN: [id number] /
[2018-10-11 01:10] LABS: Hemoglobin A1C 7.1 % (4.0-6.0)
[2018-10-11] MEDS: NITROGLYCERIN OINT 1 INCH/GM PACKET TOPICAL SCH (04:27)
[2018-10-11] MEDS: SODIUM CHLORIDE 0.9% 1,000 ML IV SCH (04:28)
[2018-10-11] MEDS ORDERED: TRANEXAMIC ACID 2,000 MG in SODIUM CHLORIDE 0.9% 80 ML IV ONE (05:00)
[2018-10-11] MEDS ORDERED: MAGNESIUM SULFATE SYG 4.06 MEQ/ML SYRINGE IV ONE (05:00)
[2018-10-11] MEDS ORDERED: NOREPINEPHRINE 4 MG in SODIUM CHLORIDE 0.9% 250 ML IV SCH (05:00)
[2018-10-11] MEDS ORDERED: HEPARIN SODIUM 1,000 UN/ML (10ML VL) IV ONE (05:00)
[2018-10-11] MEDS ORDERED: HEPARIN SODIUM,PORCINE 5,000 UNIT in SODIUM CHLORIDE 0.9% 500 ML 500 ML IV ONE (05:00)
[2018-10-11] MEDS ORDERED: ALBUMIN HUMAN 25% 50 ML in EMPTY BAG 1 BAG IVPB ONE (05:00)
[2018-10-11] MEDS ORDERED: ceFAZolin 1,000 MG in SODIUM CHLORIDE 0.9% IRRIGATIO 1,000 ML IRRIGATION ONE (05:00)
[2018-10-11] MEDS ORDERED: ALBUMIN HUMAN 5% 500 ML in EMPTY BAG 1 BAG IVPB ONE ×6 (05:00)
[2018-10-11] MEDS ORDERED: MANNITOL 25% 12.5 GM/50 ML VIAL IV ONE ×2 (05:00)
[2018-10-11] MEDS ORDERED: CHLORHEXIDINE GLUCONATE 15 ML CUP MUCOUS MEM ONE ×2 (05:00)
[2018-10-11] MEDS ORDERED: PROTAMINE SULFATE 250 MG in EMPTY BAG 1 BAG IV ONE (05:00)
[2018-10-11] MEDS ORDERED: PHENYLEPHRINE 40 MG in SODIUM CHLORIDE 0.9% 250 ML IV ONE (05:00)
[2018-10-11] MEDS ORDERED: SODIUM BICARB 8.4% 50 ML SYR (1 MEQ/ML) IV ONE (05:00)
[2018-10-11] MEDS ORDERED: PAPAVERINE 360 MG in SODIUM CHLORIDE 0.9% 90 ML IV ONE ×2 (05:00→09:20)
[2018-10-11] MEDS ORDERED: PROPOFOL 1,000 MG in EMPTY BAG 1 BAG IV PRN (05:00)
[2018-10-11] MEDS ORDERED: CLEVIDIPINE BUTYRATE 25 MG in EMPTY BAG 1 BAG IV SCH (05:00)
[2018-10-11] MEDS ORDERED: CALCIUM CHLORIDE 100 MG/ML 10 ML SYRINGE IVP ONE (05:00)
[2018-10-11] MEDS ORDERED: ATORVASTATIN 10 MG TAB PO ONE (05:00)
[2018-10-11] MEDS ORDERED: METOPROLOL TARTRATE 12.5 MG TAB PO ONE (05:00)
[2018-10-11] MEDS ORDERED: ceFAZolin 3 GM in SODIUM CHLORIDE 0.9% 30 ML IVPB ONE (05:00)
[2018-10-11] MEDS ORDERED: PROTAMINE SULFATE 10 MG/ML 25 ML VIAL IV ONE (05:00)
[2018-10-11] MEDS ORDERED: ceFAZolin 2,000 MG in SODIUM CHLORIDE 0.9% 30 ML IVPB ONE (05:00)
[2018-10-11] MEDS ORDERED: NITROGLYCERIN-D5W PMX 25 MG/250 ML BTL IV ONE (05:00)
[2018-10-11] MEDS ORDERED: LACTATED RINGERS 1,000 ML IV SCH (05:00)
[2018-10-11] MEDS ORDERED: ASPIRIN 325 MG TAB PO ONE (05:00)
[2018-10-11 07:14] LABS: Basophils % (A) 1 %; Eosinophils # (A) 0.3 k/uL (0-0.7); Eosinophils % (A) 4 %; HGB 12.4 gm/dL (13.0-17.5); Lymphocytes # (A) 1.4 k/uL (1.0-4.8); Lymphocytes % (A) 18 %; MCH 29.1 pg (25.0-35.0); MCHC 32.7 g/dL (31.0-37.0); MCV 88.9 fL (80.0-100.0); Mean Platelet Volume 9.1; Monocytes # (A) 0.6 k/uL (0-1.0); Monocytes % (A) 8 %; Neutrophils # (A) 5.1 k/uL (1.3-7.7); Neutrophils % (A) 69 %; Platelet Count 135 k/uL (150-450); RBC 4.27 m/uL (4.30-5.90); RDW 15.7 % (11.5-15.5); WBC 7.5 k/uL (3.8-10.6)
[2018-10-11] MEDS ORDERED: ePHEDrine SULFATE/0.9% NACL/PF 50 MG/5 ML SYRINGE IV ONE (07:45)
[2018-10-11] MEDS ORDERED: MAGNESIUM SULFATE 4 MEQ/ML 10ML VIAL ONE (07:45)
[2018-10-11] MEDS ORDERED: ceFAZolin 1,000 MG VIAL ONE (07:45)
[2018-10-11] MEDS ORDERED: POTASSIUM CHLORIDE OPEN HEART 20 MEQ/50 ML BAG IVPB ONE (07:45)
[2018-10-11] MEDS ORDERED: PROTAMINE SULFATE 10 MG/ML 5 ML VIAL IV ONE (07:45)
[2018-10-11] MEDS ORDERED: NITROGLYCERIN-D5W PMX 50 MG/250 ML BOTTLE IV ONE (07:45)
[2018-10-11] MEDS ORDERED: PHENYLEPHRINE-0.9% NACL SYG 1 MG/10 ML SYRINGE ONE (07:45)
[2018-10-11] MEDS ORDERED: INSULIN REGULAR 100 UNIT/ML VIAL ONE (07:45)
[2018-10-11] MEDS ORDERED: PROPOFOL 10 MG/ML 20 ML VIAL IV ONE (07:45)
[2018-10-11] MEDS ORDERED: SODIUM CHLORIDE 0.9% IRRIG 1,000 ML BTL IRRIGATION ONE ×2 (07:45)
[2018-10-11] MEDS ORDERED: VECURONIUM 10 MG VIAL IV ONE (07:45)
[2018-10-11] MEDS ORDERED: HEPARIN SODIUM,PORCINE 10,000 UNIT/ML 1 ML VIAL ONE (07:45)
[2018-10-11] MEDS ORDERED: MIDAZOLAM 2 MG/2 ML VIAL ONE (07:45)
[2018-10-11] MEDS ORDERED: ALBUMIN HUMAN 5% (25gm) 500 ML VIAL IVPB ONE (07:45)
[2018-10-11] MEDS ORDERED: fentaNYL (PF) 50 MCG/ML 50 ML VIAL ONE (07:45)
[2018-10-11] MEDS ORDERED: SUCCINYLCHOLINE CHLORIDE VIAL 200 MG/10 ML VIAL IV ONE (07:45)
[2018-10-11 08:44] LABS: ABG Base Excess 1.8 mmol/L; ABG Glucose Whole Blood 124 mg/dL (75-99); ABG HCO3 28 mmol/L (21-25); ABG Hematocrit 39 % (34.0-46.0); ABG Ionized Calcium 4.7 mg/dL (4.5-5.3); ABG Lactic Acid Whole Blood 0.8 mmol/L (0.5-1.6); ABG Oxygen Saturation 99.8 % (94-97); ABG PCO2 46 mmHg (35-45); ABG PH 7.38 (7.35-7.45); ABG PO2 148 mmHg (83-108); ABG Potassium Whole Blood 4.5 mmol/L (3.4-4.5); ABG Sodium Whole Blood 141 mmol/L (135-146); ABG TCO2 29 mmol/L (19-24)
[2018-10-11] MEDS ORDERED: ASPIRIN 81 MG PO SCH (09:00)
[2018-10-11] MEDS ORDERED: ATORVASTATIN 40 MG TAB PO SCH (09:00)
[2018-10-11] MEDS ORDERED: SODIUM CHLORIDE 0.9% 500 ML 500 ML with HEPARIN SODIUM,PORCINE 5,000 UNIT IV ONE ×2 (09:20)
[2018-10-11] MEDS ORDERED: ceFAZolin 1,000 MG in SODIUM CHLORIDE 0.9% 1,000 ML IRRIGATION ONE (09:20)
[2018-10-11 10:06] LABS: ABG Base Excess 0.4 mmol/L; ABG Glucose Whole Blood 140 mg/dL (75-99); ABG HCO3 26 mmol/L (21-25); ABG Hematocrit 36 % (34.0-46.0); ABG Ionized Calcium 4.7 mg/dL (4.5-5.3); ABG Lactic Acid Whole Blood 0.6 mmol/L (0.5-1.6); ABG Oxygen Saturation 98.1 % (94-97); ABG PCO2 44 mmHg (35-45); ABG PH 7.38 (7.35-7.45); ABG PO2 95 mmHg (83-108); ABG Sodium Whole Blood 142 mmol/L (135-146); ABG TCO2 27 mmol/L (19-24)
[2018-10-11 10:41] LABS: ABG Base Excess 0.1 mmol/L; ABG Glucose Whole Blood 148 mg/dL (75-99); ABG HCO3 25 mmol/L (21-25); ABG Hematocrit 35 % (34.0-46.0); ABG Ionized Calcium 4.6 mg/dL (4.5-5.3); ABG Lactic Acid Whole Blood 0.7 mmol/L (0.5-1.6); ABG Oxygen Saturation 99.6 % (94-97); ABG PCO2 42 mmHg (35-45); ABG PH 7.39 (7.35-7.45); ABG PO2 123 mmHg (83-108); ABG Potassium Whole Blood 3.9 mmol/L (3.4-4.5); ABG Sodium Whole Blood 142 mmol/L (135-146); ABG TCO2 27 mmol/L (19-24)
[2018-10-11 11:24] LABS: ABG Base Excess -0.1 mmol/L; ABG Glucose Whole Blood 146 mg/dL (75-99); ABG HCO3 25 mmol/L (21-25); ABG Hematocrit 35 % (34.0-46.0); ABG Ionized Calcium 4.6 mg/dL (4.5-5.3); ABG Lactic Acid Whole Blood 0.9 mmol/L (0.5-1.6); ABG Oxygen Saturation 99.6 % (94-97); ABG PCO2 41 mmHg (35-45); ABG PH 7.39 (7.35-7.45); ABG PO2 127 mmHg (83-108); ABG Potassium Whole Blood 3.7 mmol/L (3.4-4.5); ABG Sodium Whole Blood 142 mmol/L (135-146); ABG TCO2 26 mmol/L (19-24)
[2018-10-11 12:06] LABS: ABG Base Excess 0.3 mmol/L; ABG Glucose Whole Blood 140 mg/dL (75-99); ABG HCO3 26 mmol/L (21-25); ABG Hematocrit 34 % (34.0-46.0); ABG Ionized Calcium 4.7 mg/dL (4.5-5.3); ABG Lactic Acid Whole Blood 1.1 mmol/L (0.5-1.6); ABG Oxygen Saturation 85.9 % (94-97); ABG PCO2 48 mmHg (35-45); ABG Potassium Whole Blood 3.7 mmol/L (3.4-4.5); ABG Sodium Whole Blood 143 mmol/L (135-146); ABG TCO2 28 mmol/L (19-24)
[2018-10-11 12:47] LABS: ABG PO2 50 mmHg (83-108)
[2018-10-11] MEDS ORDERED: Potassium Replacement Protocol 1 EACH MISC MISCELLANE PRN (13:09)
[2018-10-11] MEDS ORDERED: PROPOFOL 1,000 MG in EMPTY BAG 1 BAG IV SCH ×2 (13:09→15:00)
[2018-10-11] MEDS ORDERED: Phosphorus Replacement Protoco 1 EACH MISC MISCELLANE PRN (13:09)
[2018-10-11] MEDS ORDERED: BENZOCAINE/MENTHOL LOZENG 1 EACH LOZENGE MUCOUS MEM PRN (13:09)
[2018-10-11] MEDS ORDERED: AMIODARONE 360 MG in DEXTROSE 5% IN WATER 200 ML IV PRN ×2 (13:09)
[2018-10-11] MEDS ORDERED: AMIODARONE 300 MG in DEXTROSE 5% IN WATER 250 ML IV PRN ×2 (13:09)
[2018-10-11] MEDS ORDERED: ALBUMIN HUMAN 5% 250 ML in EMPTY BAG 1 BAG IVPB PRN (13:09)
[2018-10-11] MEDS ORDERED: CALCIUM GLUCONATE 2 GM in SODIUM CHLORIDE 0.9% 100 ML IVPB PRN (13:09)
[2018-10-11] MEDS ORDERED: METOCLOPRAMIDE 5 MG/ML 2 ML VIAL IVP PRN (13:09)
[2018-10-11] MEDS ORDERED: Magnesium Replacement Protocol 1 EACH MISC MISCELLANE PRN (13:09)
[2018-10-11] MEDS ORDERED: ASPIRIN 300 MG SUPP RECTAL ONE (13:09)
[2018-10-11] MEDS: NITROGLYCERIN-D5W PMX 50 MG in DEXTROSE/WATER 1 250ML.BAG IV SCH ×2 (13:30→14:40)
[2018-10-11 13:41] LABS: Glucose,Whole Blood 123 mg/dL (75-99)
[2018-10-11 13:51] LABS: ABG Base Excess -0.5 mmol/L; ABG HCO3 26 mmol/L (21-25); ABG Oxygen Saturation 98.9 % (94-97); ABG PCO2 54 mmHg (35-45); ABG PH 7.29 (7.35-7.45); ABG PO2 191 mmHg (83-108); ABG TCO2 28 mmol/L (19-24); Allen Test Performed? Yes
[2018-10-11 14:02] LABS: Basophils % (A) 0 %; Eosinophils # (A) 0.1 k/uL (0-0.7); Eosinophils % (A) 0 %; HCT 34.1 % (39.0-53.0); HGB 11.2 gm/dL (13.0-17.5); Lymphocytes # (A) 1.2 k/uL (1.0-4.8); Lymphocytes % (A) 9 %; MCH 29.2 pg (25.0-35.0); MCV 88.4 fL (80.0-100.0); Mean Platelet Volume 7.3; Monocytes # (A) 0.6 k/uL (0-1.0); Monocytes % (A) 4 %; Neutrophils # (A) 11.5 k/uL (1.3-7.7); Neutrophils % (A) 86 %; Platelet Count 155 k/uL (150-450); RBC 3.85 m/uL (4.30-5.90); RDW 14.1 % (11.5-15.5); WBC 13.4 k/uL (3.8-10.6)
--- NOTE | 2018-10-11 14:07 | XR ---
EXAMINATION TYPE: XR chest 1V portable DATE OF EXAM: 10/11/2018 COMPARISON: 10/09/2018 HISTORY: Cough and pain TECHNIQUE: Single frontal view of the chest is obtained. FINDINGS: Heart is enlarged and is postoperative change. ET tube approximately 2 cm above brown. NG tube courses in the left upper quadrant. [place]-Nicolle catheter seen with the tip overlying the proximal right pulmonary outflow tract. Bilateral consolidation and pleural effusion. Suspect a less than 5% left apical pneumothorax.. Postsurgical changes seen. IMPRESSION: 1. Postoperative change with bilateral consolidation which may been the basis of postoperative atelec tasis with small effusions. Correlate clinically. Suspect a tiny 5% or less apical pneumothorax on th e left..
[2018-10-11 14:08] LABS: Ionized Calcium 4.9 mg/dL (4.5-5.3)
[2018-10-11 14:12] LABS: Partial Thromboplastin Time 57.8 sec (22.0-30.0); Prothrombin Time 10.7 sec (9.0-12.0)
[2018-10-11 14:38] LABS: Glucose,Whole Blood 117 mg/dL (75-99)
[2018-10-11 14:38] LABS: ABG Base Excess -0.3 mmol/L; ABG HCO3 25 mmol/L (21-25); ABG Oxygen Saturation 96.8 % (94-97); ABG PCO2 47 mmHg (35-45); ABG PH 7.34 (7.35-7.45); ABG PO2 88 mmHg (83-108); ABG TCO2 27 mmol/L (19-24); Allen Test Performed? Yes
[2018-10-11] MEDS: CLEVIDIPINE BUTYRATE 25 MG in EMPTY BAG 1 BAG IV SCH ×4 (14:43→21:51)
[2018-10-11] MEDS: LACTATED RINGERS 1,000 ML IV SCH (14:44)
[2018-10-11] MEDS: NOREPINEPHRINE 4 MG in SODIUM CHLORIDE 0.9% 250 ML IV SCH (14:44)
[2018-10-11] MEDS: INSULIN REGULAR 100 UNIT in SODIUM CHLORIDE 0.9% 100 ML IV SCH (14:46)
[2018-10-11 14:55] LABS: ALT 86 U/L (21-72); AST 93 U/L (17-59); African American GFR (CKD) >90 (>60 ml/min/1.73 sqM); Albumin 3.3 g/dL (3.5-5.0); Alkaline Phosphatase 55 U/L (38-126); Anion Gap 7 mmol/L; Blood Urea Nitrogen 19 mg/dL (9-20); Calcium 8.9 mg/dL (8.4-10.2); Carbon Dioxide 26 mmol/L (22-30); Chloride 109 mmol/L (98-107); Glucose 123 mg/dL (74-99); Magnesium 2.2 mg/dL (1.6-2.3); Potassium 4.2 mmol/L (3.5-5.1); Sodium 142 mmol/L (137-145); Total Bilirubin 0.9 mg/dL (0.2-1.3); Total Protein 5.6 g/dL (6.3-8.2)
[2018-10-11 15:21] LABS: Glucose,Whole Blood 117 mg/dL (75-99)
[2018-10-11] MEDS: MORPHINE SULFATE 2 MG/ML SYRINGE IVP PRN ×3 (15:41→23:32)
[2018-10-11] MEDS: IPRATROPIUM-ALBUTEROL 3 ML NEB INHALATION SCH ×2 (15:48→19:54)
[2018-10-11] MEDS ORDERED: fentaNYL (PF) 50 MCG/ML 2 ML AMP IVP PRN (15:56)
[2018-10-11] MEDS ORDERED: IPRATROPIUM-ALBUTEROL 3 ML NEB INHALATION SCH (16:00)
[2018-10-11] MEDS: DEXMEDETOMIDINE/0.9% NACL(PMX) 400 MCG in EMPTY BAG 1 BAG IV SCH ×3 (16:03→21:17)
[2018-10-11] MEDS: ceFAZolin 3 GM in SODIUM CHLORIDE 0.9% 100 ML IVPB SCH (16:17)
[2018-10-11 16:35] LABS: Glucose,Whole Blood 134 mg/dL (75-99)
[2018-10-11 16:43] LABS: Basophils % (A) 0 %; Eosinophils # (A) 0.1 k/uL (0-0.7); Eosinophils % (A) 1 %; HCT 35.4 % (39.0-53.0); HGB 11.7 gm/dL (13.0-17.5); Lymphocytes # (A) 0.5 k/uL (1.0-4.8); Lymphocytes % (A) 5 %; MCH 29.1 pg (25.0-35.0); MCV 88.2 fL (80.0-100.0); Mean Platelet Volume 7.4; Monocytes # (A) 0.6 k/uL (0-1.0); Monocytes % (A) 5 %; Neutrophils # (A) 9.9 k/uL (1.3-7.7); Neutrophils % (A) 89 %; Platelet Count 134 k/uL (150-450); RBC 4.02 m/uL (4.30-5.90); WBC 11.1 k/uL (3.8-10.6)
[2018-10-11 17:23] LABS: Glucose,Whole Blood 148 mg/dL (75-99)
[2018-10-11 17:56] LABS: ABG Base Excess -0.9 mmol/L; ABG HCO3 25 mmol/L (21-25); ABG Oxygen Saturation 91.1 % (94-97); ABG PCO2 43 mmHg (35-45); ABG PH 7.36 (7.35-7.45); ABG PO2 60 mmHg (83-108); ABG TCO2 26 mmol/L (19-24); Allen Test Performed? Yes
[2018-10-11] MEDS: ACETAMINOPHEN IV (For NPO) 1,000 MG in EMPTY BAG 1 BAG IVPB SCH (18:09)
[2018-10-11 18:19] LABS: Glucose,Whole Blood 144 mg/dL (75-99)
--- NOTE | 2018-10-11 18:55 | P.CNPUL ---
History of Present Illness Consult date: 10/11/18 Requesting physician: Jena Fallon Reason for consult: other Chief complaint: Coronary artery disease History of present illness: This is a 73-year-old patient of Dr. Olmstead, with past medical history of hypertension, hyperlipidemia, morbid obesity, basal cell skin cancer with resection, significant family history of coronary artery disease, pernicious anemia. Patient has been having intermittent chest pain radiating to his back, associated with shortness of breath. Patient came into the ED for evaluation, twelve-lead EKG showed normal sinus rhythm with nonspecific T-wave abnormality i n the lead 3. Chest CT was completed and showed no evidence of aortic dissection, and showed ectatic ascending aorta and upper descending thoracic aorta at 3.4 cm. Showed bibasilar atelectasis, and multifocal patchy inferior lingular opacity representing atelectasis. Patient was evaluated by cardiology, patient had elevation of troponin, and was ruled in of non-ST elevated myocardial infarction. He underwent coronary angiography which showed mid LAD lesion of 80% that also involves the 2 diagonal branches, have a calcified right coronary artery without significant disease and nondominant circumflex. Echocardiogram showed EF of 55-60%, mild aortic sclerosis with mild aortic stenosis, mild tricuspid regurgitation, no pulmonary hypertension, trace pulmonic regurgitation. On 10/11/2018 patient underwent single-vessel bypass with a CHE to LAD off-pump. Patient is seen in intensive care unit following his surgery. He is sedated, intubated on mechanical ventilator, with the SIMV mode of ventilation, with a rate of 12, tidal and 500, FiO2 100% and PEEP of 10. The blood gases stop showed pO2 of 191, pCO2 54, and pH of 7.29, O2 was dropped down to 80%, and patient was switched to assist control mode of ventilation with a rate of 20, subsequent blood gases in 1 hour showed improvement in the ventilation, with pCO2 down to 47, and pH of 7.34, and pO2 was 88%. O2 sat remains borderline, at 90%, repeat blood gases were obtained, after FiO2 was cut back to 60% from 80%, and blood gas showed a pO2 of 60%, pCO2 43, and pH of 7.36 and FiO2 was back up to 80%. Lactated Ringer Jacinto at a rate of 50, nitroglycerin drip is at 5 mics per kilo per minute, insulin drip, Diprivan and has been weaned off, and patient is currently on Precedex in view of patient's chronic pain. Awake and alert, following commands. His chest x-ray has been reviewed, showing postoperative changes with bilateral atelectasis, and small pleural effusions, and a tiny 5% or less apical pneumothorax on the left. Patient has a 2 mediastinal and left pleural chest tube, is hemodynamically stable, there has been 440 mL of serosanguineous output from the left and 200 mL from the mediastinal chest tubes, urine output is adequate. Is in sinus mechanism, with controlled rate. Review of Systems All systems: negative Constitutional: Denies chills, Denies fever Eyes: denies blurred vision, denies pain Ears, nose, mouth and throat: Denies headache, Denies sore throat Cardiovascular: Reports chest pain, Reports dyspnea on exertion, Denies shortness of breath Respiratory: Denies cough Gastrointestinal: Denies abdominal pain, Denies diarrhea, Denies nausea, Denies vomiting Musculoskeletal: Denies myalgias Integumentary: Denies pruritus, Denies rash Neurological: Denies numbness, Denies weakness Psychiatric: Denies anxiety, Denies depression Endocrine: Denies fatigue, Denies weight change Past Medical History Past Medical History: Cancer, CVA/TIA, Eye Disorder, GERD/Reflux, Hyperlipidemia, Hypertension, Osteoarthritis (OA), Prostate Disorder, Skin Disorder Additional Past Medical History / Comment(s): TIA yrs. 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 VERONICA CATARACT Past Anesthesia/Blood Transfusion Reactions: No Reported Reaction Past Psychological History: No Psychological Hx Reported Smoking Status: Never smoker Past Alcohol Use History: None Reported Past Drug Use History: None Reported - Past Family History Father Family Medical History: Congestive Heart Failure (CHF), CVA/TIA Additional Family Medical History / Comment(s): at age 68 Brother(s) Family Medical History: Cancer, COPD, Diabetes Mellitus Additional Family Medical History / Comment(s): heart problems Mother Family Medical History: Myocardial Infarction (HI) Additional Family Medical History / Comment(s): at 79 w/ HI Medications and Allergies Home Medications Medication Instructions Recorded Confirmed Type Lisinopril [Zestril] 20 mg PO HS 11/02/13 10/09/18 History Multivitamin [Men's Multi-Vitamin] 1 tab PO DAILY 04/01/15 10/09/18 History Cholecalciferol [Vitamin D3] 2,000 unit PO DAILY 09/30/15 10/09/18 History Meloxicam [Mobic] 15 mg PO DAILY 03/01/17 10/09/18 History Cyanocobalamin [Vitamin B-12 1,000 mcg SQ QMONTH 09/27/17 10/09/18 History Injection] Cyanocobalamin (Vitamin B-12) 2,000 mcg PO DAILY 10/09/18 10/09/18 History [Vitamin B-12] Omeprazole 20 mg PO DAILY 10/09/18 10/09/18 History Tamsulosin HCl [Flomax] 0.4 mg PO DAILY 10/09/18 10/09/18 History Allergies Allergy/AdvReac Type Severity Reaction Status Date / Time azithromycin [From Zithromax] AdvReac Nausea & Verified 10/09/18 13:26 Vomiting codeine AdvReac Nausea & Verified 10/09/18 13:26 Vomiting Physical Exam Vitals: Vital Signs Temp Pulse Pulse Pulse Resp BP BP 10/11/18 18:00 70 22 158/89 10/11/18 17:45 66 26 H 158/89 10/11/18 17:30 70 21 158/89 10/11/18 17:15 70 19 158/89 10/11/18 17:00 97.7 F 71 24 10/11/18 16:45 70 24 10/11/18 16:30 73 23 10/11/18 16:15 75 23 10/11/18 16:00 97.7 F 84 23 10/11/18 15:55 83 10/11/18 15:50 81 10/11/18 15:45 79 24 10/11/18 15:30 74 22 10/11/18 15:20 75 21 100/52 10/11/18 15:10 75 22 100/52 10/11/18 15:00 97.9 F 71 22 10/11/18 14:50 73 22 10/11/18 14:40 73 22 10/11/18 14:30 73 22 10/11/18 14:20 78 22 100/52 10/11/18 14:10 80 22 10/11/18 14:00 81 14 10/11/18 13:50 80 18 10/11/18 13:40 79 20 10/11/18 13:30 97.7 F 78 20 10/11/18 04:40 97.9 F 65 18 130/72 10/10/18 23:15 66 18 10/10/18 20:34 98.2 F 71 18 10/10/18 19:30 71 18 10/10/18 19:20 80 16 142/87 10/10/18 19:10 71 18 BP Pulse Ox 10/11/18 18:00 92 L 10/11/18 17:45 93 L 10/11/18 17:30 92 L 10/11/18 17:15 91 L 10/11/18 17:00 93 L 10/11/18 16:45 92 L 10/11/18 16:30 93 L 10/11/18 16:15 95 10/11/18 16:00 90 L 10/11/18 15:55 10/11/18 15:50 10/11/18 15:45 91 L 10/11/18 15:30 99 10/11/18 15:20 100 10/11/18 15:10 99 10/11/18 15:00 99 10/11/18 14:50 99 10/11/18 14:40 99 10/11/18 14:30 99 10/11/18 14:20 99 10/11/18 14:10 99 10/11/18 14:00 100 10/11/18 13:50 99 10/11/18 13:40 100 10/11/18 13:30 100 10/11/18 04:40 143/76 95 10/10/18 23:15 120/65 98 10/10/18 20:34 133/75 95 10/10/18 19:30 146/84 95 10/10/18 19:20 96 10/10/18 19:10 181/104 98 Intake and Output 10/11/18 10/11/18 10/11/18 06:59 14:59 22:59 Intake Total 134 600.799 Output Total 1557 300 Balance -1423 300.799 Intake: IV 134 456 ACETAMINOPHEN IV (For NPO 100 ) 1,000 mg In Empty Bag 1 bag @ 400 mls/hr IVPB Q6HR [facility]ARCEL Rx#:[id number] Lactated Ringers 1,000 ml 100 200 @ 50 mls/hr IV .Q20H MARCEL Rx#:[id number] Nitroglycerin-D5w Pmx 50 10 20 mg In Dextrose/Water 1 250ml.bag @ 5 MCG/MIN 1.5 mls/hr IV .Q24H MARCEL Rx#: [id number] Pressure Bags 18 36 ceFAZolin 3 gm In Sodium 100 Chloride 0.9% 100 ml @ 100 mls/hr IVPB Q8HR MARCEL Rx#:[id number] Intake, IV Titration 144.799 Amount Clevidipine Butyrate 25 27.533 mg In Empty Bag 1 bag @ 1 MG/HR 2 mls/hr IV .Q24H MARCEL Rx#:[id number] Dexmedetomidine/0.9% NaCl 63.673 (Pmx) 400 mcg In Empty Bag 1 bag @ Titrate IV . Q0M MARCEL Rx#:[id number] Insulin Regular 100 unit 8.333 In Sodium Chloride 0.9% 100 ml @ Titrate IV .Q0M [facility]ARCEL Rx#:[id number] Propofol 1,000 mg In 45.26 Empty Bag 1 bag @ Titrate IV .Q0M MARCEL Rx#: [id number] Output: Chest Tube Drainage 517 130 Left 410 30 Mediastinal 107 100 Urine 540 170 Estimated Blood Loss 500 Other: Voiding Method Indwelling Catheter # Voids 1 Weight 157.7 kg ABP, PAP, CO, CI - Last 8 Hours Arterial Blood Pressure 236/193 Arterial Blood Pressure 130/64 Arterial Blood Pressure 127/61 Arterial Blood Pressure 129/63 Arterial Blood Pressure 132/62 Arterial Blood Pressure 131/64 Arterial Blood Pressure 110/54 Arterial Blood Pressure 121/60 Arterial Blood Pressure 118/57 Arterial Blood Pressure 139/66 Arterial Blood Pressure 126/61 Arterial Blood Pressure 133/60 Arterial Blood Pressure 126/57 Arterial Blood Pressure 114/54 Arterial Blood Pressure 110/51 Arterial Blood Pressure 107/52 Arterial Blood Pressure 111/52 Arterial Blood Pressure 97/47 Arterial Blood Pressure 112/52 Arterial Blood Pressure 17/17 Arterial Blood Pressure 133/63 Arterial Blood Pressure 136/68 Pulmonary Artery Pressure 45/25 Pulmonary Artery Pressure 44/24 Pulmonary Artery Pressure 44/25 Pulmonary Artery Pressure 43/26 Pulmonary Artery Pressure 45/26 Pulmonary Artery Pressure 44/27 Pulmonary Artery Pressure 44/25 Pulmonary Artery Pressure 51/28 Pulmonary Artery Pressure 52/27 Pulmonary Artery Pressure 46/26 Pulmonary Artery Pressure 47/30 Pulmonary Artery Pressure 48/30 Pulmonary Artery Pressure 44/27 Pulmonary Artery Pressure 42/25 Pulmonary Artery Pressure 42/26 Pulmonary Artery Pressure 43/25 Pulmonary Artery Pressure 42/25 Pulmonary Artery Pressure 42/25 Pulmonary Artery Pressure 41/25 Pulmonary Artery Pressure 45/24 Pulmonary Artery Pressure 48/27 Pulmonary Artery Pressure 51/28 Pulmonary Artery Pressure 53/30 Cardiac Output 8.9 Cardiac Output 8.9 Cardiac Output 7.5 Cardiac Output 8.7 Cardiac Output 8.7 Cardiac Output 8.7 Cardiac Output 9.5 Cardiac Output 8.4 Cardiac Index 3.3 Cardiac Index 3.3 Cardiac Index 2.8 Cardiac Index 3.2 Cardiac Index 3.2 Cardiac Index 3.2 Cardiac Index 3.5 Cardiac Index 3.5 Cardiac Index 3.1 GENERAL EXAM: He did, obese, intubated on the mechanical ventilator, currently on assist control mode of ventilation with a rate of 20, tidal vital 500, FiO2 of 80% and PEEP of 10 comfortable in no apparent distress. HEAD: Normocephalic/atraumatic. EYES: Normal reaction of pupils, equal size. Conjunctiva pink, sclera white. NOSE: Clear with pink turbinates. THROAT: No erythema or exudates. NECK: No masses, no JVD, no thyroid enlargement, no adenopathy. CHEST: No chest wall deformity. Symmetrical expansion. Median sternotomy incision is clean dry and intact, mediastinal and left pleural chest tubes are in place, to wall suction, with moderate amount of output in the Pleur-evac, with sanguinous fluid LUNGS: Equal air entry with no crackles, wheeze, rhonchi or dullness. CVS: Regular rate and rhythm, normal S1 and S2, no gallops, no murmurs, no rubs ABDOMEN: Soft, nontender, obese abdomen. No hepatosplenomegaly, normal bowel sounds, no guarding or rigidity. EXTREMITIES: No clubbing, no edema, no cyanosis, 2+ pulses and upper and lower extremities. MUSCULOSKELETAL: Muscle strength and tone normal. SPINE: No scoliosis or deformity SKIN: No rashes CENTRAL NERVOUS SYSTEM: Sedated. No focal deficits, tone is normal in all 4 extremities. Results - Laboratory Findings CBC and BMP: 10/11/18 16:35 10/11/18 13:39 ABG ABG pH 7.36 (7.35-7.45) 10/11/18 17:52 ABG pCO2 43 mmHg (35-45) 10/11/18 17:52 ABG pO2 60 mmHg (83-108) L 10/11/18 17:52 ABG O2 Saturation 91.1 % (94-97) L 10/11/18 17:52 PT/INR, D-dimer PT 10.7 sec (9.0-12.0) 10/11/18 13:39 INR 1.0 (<1.2) 10/11/18 13:39 D-Dimer 0.36 mg/L FEU (<0.60) 10/10/18 11:45 Abnormal lab findings: Abnormal Labs 10/09/18 10/09/18 10/09/18 13:05 13:05 13:10 WBC RBC Hgb Hct RDW Plt Count Neutrophils # Lymphocytes # APTT ABG pH ABG pCO2 ABG pO2 ABG HCO3 ABG Total CO2 ABG O2 Saturation ABG Glucose Hemoglobin Chloride BUN 21 H Glucose 155 H POC Glucose (mg/dL) Hemoglobin A1c AST ALT Troponin I 0.056 H* Total Protein Albumin Triglycerides LDL Cholesterol, Calc Arterial Blood Glucose Ur Specific [place] Urine Protein 2+ H Urine Glucose (UA) Urine Blood Trace H Urine Mucus Rare H Crossmatch 10/09/18 10/10/18 10/10/18 20:38 00:39 04:13 WBC RBC Hgb Hct RDW Plt Count Neutrophils # Lymphocytes # APTT 35.1 H ABG pH ABG pCO2 ABG pO2 ABG HCO3 ABG Total CO2 ABG O2 Saturation ABG Glucose Hemoglobin Chloride BUN Glucose POC Glucose (mg/dL) Hemoglobin A1c AST ALT Troponin I 0.049 H* 0.045 H* Total Protein Albumin Triglycerides LDL Cholesterol, Calc Arterial Blood Glucose Ur Specific [place] Urine Protein Urine Glucose (UA) Urine Blood Urine Mucus Crossmatch 10/10/18 10/10/18 10/10/18 04:13 08:16 11:45 WBC RBC Hgb Hct RDW Plt Count Neutrophils # Lymphocytes # APTT 48.8 H ABG pH ABG pCO2 ABG pO2 ABG HCO3 ABG Total CO2 ABG O2 Saturation ABG Glucose Hemoglobin Chloride BUN 22 H Glucose 147 H POC Glucose (mg/dL) 127 H Hemoglobin A1c AST ALT Troponin I Total Protein Albumin Triglycerides LDL Cholesterol, Calc Arterial Blood Glucose Ur Specific [place] Urine Protein Urine Glucose (UA) Urine Blood Urine Mucus Crossmatch 10/10/18 10/10/18 10/10/18 17:25 17:25 19:43 WBC RBC Hgb Hct RDW Plt Count Neutrophils # Lymphocytes # APTT ABG pH ABG pCO2 ABG pO2 ABG HCO3 ABG Total CO2 ABG O2 Saturation ABG Glucose Hemoglobin Chloride 108 H BUN Glucose 137 H POC Glucose (mg/dL) Hemoglobin A1c 7.1 H AST ALT Troponin I Total Protein Albumin Triglycerides 240 H LDL Cholesterol, Calc 101 H Arterial Blood Glucose Ur Specific [place] 1.041 H Urine Protein 2+ H Urine Glucose (UA) Trace H Urine Blood Trace H Urine Mucus Rare H Crossmatch 10/10/18 10/10/18 10/11/18 22:24 22:24 05:47 WBC RBC 4.27 L Hgb 12.4 L Hct 38.0 L RDW 15.7 H Plt Count 135 L Neutrophils # Lymphocytes # APTT 48.5 H ABG pH ABG pCO2 ABG pO2 ABG HCO3 ABG Total CO2 ABG O2 Saturation ABG Glucose Hemoglobin Chloride BUN Glucose POC Glucose (mg/dL) Hemoglobin A1c AST ALT Troponin I Total Protein Albumin Triglycerides LDL Cholesterol, Calc Arterial Blood Glucose Ur Specific [place] Urine Protein Urine Glucose (UA) Urine Blood Urine Mucus Crossmatch See Detail 10/11/18 10/11/18 10/11/18 08:45 10:07 10:42 WBC RBC Hgb Hct RDW Plt Count Neutrophils # Lymphocytes # APTT ABG pH ABG pCO2 46 H ABG pO2 148 H 123 H ABG HCO3 28 H 26 H ABG Total CO2 29 H 27 H 27 H ABG O2 Saturation 99.8 H 98.1 H 99.6 H ABG Glucose 124 H 140 H 148 H Hemoglobin 12.7 L 11.7 L 11.4 L Chloride BUN Glucose POC Glucose (mg/dL) Hemoglobin A1c AST ALT Troponin I Total Protein Albumin Triglycerides LDL Cholesterol, Calc Arterial Blood Glucose 124 H 140 H 148 H Ur Specific [place] Urine Protein Urine Glucose (UA) Urine Blood Urine Mucus Crossmatch 10/11/18 10/11/18 10/11/18 11:25 12:08 13:39 WBC RBC Hgb Hct RDW Plt Count Neutrophils # Lymphocytes # APTT ABG pH ABG pCO2 48 H ABG pO2 50 L* 127 H ABG HCO3 26 H ABG Total CO2 28 H 26 H ABG O2 Saturation 85.9 L 99.6 H ABG Glucose 140 H 146 H Hemoglobin 11.2 L 11.6 L Chloride BUN Glucose POC Glucose (mg/dL) 123 H Hemoglobin A1c AST ALT Troponin I Total Protein Albumin Triglycerides LDL Cholesterol, Calc Arterial Blood Glucose 140 H 146 H Ur Specific [place] Urine Protein Urine Glucose (UA) Urine Blood Urine Mucus Crossmatch 10/11/18 10/11/18 10/11/18 13:39 13:39 13:39 WBC 13.4 H RBC 3.85 L Hgb 11.2 L Hct 34.1 L RDW Plt Count Neutrophils # 11.5 H Lymphocytes # APTT 57.8 H ABG pH ABG pCO2 ABG pO2 ABG HCO3 ABG Total CO2 ABG O2 Saturation ABG Glucose Hemoglobin Chloride 109 H BUN Glucose 123 H POC Glucose (mg/dL) Hemoglobin A1c AST 93 H ALT 86 H Troponin I Total Protein 5.6 L Albumin 3.3 L Triglycerides LDL Cholesterol, Calc Arterial Blood Glucose Ur Specific [place] Urine Protein Urine Glucose (UA) Urine Blood Urine Mucus Crossmatch 10/11/18 10/11/18 10/11/18 13:48 14:18 14:35 WBC RBC Hgb Hct RDW Plt Count Neutrophils # Lymphocytes # APTT ABG pH 7.29 L 7.34 L ABG pCO2 54 H 47 H ABG pO2 191 H ABG HCO3 26 H ABG Total CO2 28 H 27 H ABG O2 Saturation 98.9 H ABG Glucose Hemoglobin Chloride BUN Glucose POC Glucose (mg/dL) 117 H Hemoglobin A1c AST ALT Troponin I Total Protein Albumin Triglycerides LDL Cholesterol, Calc Arterial Blood Glucose Ur Specific [place] Urine Protein Urine Glucose (UA) Urine Blood Urine Mucus Crossmatch 10/11/18 10/11/18 10/11/18 15:00 16:15 16:35 WBC 11.1 H RBC 4.02 L Hgb 11.7 L Hct 35.4 L RDW Plt Count 134 L Neutrophils # 9.9 H Lymphocytes # 0.5 L APTT ABG pH ABG pCO2 ABG pO2 ABG HCO3 ABG Total CO2 ABG O2 Saturation ABG Glucose Hemoglobin Chloride BUN Glucose POC Glucose (mg/dL) 117 H 134 H Hemoglobin A1c AST ALT Troponin I Total Protein Albumin Triglycerides LDL Cholesterol, Calc Arterial Blood Glucose Ur Specific [place] Urine Protein Urine Glucose (UA) Urine Blood Urine Mucus Crossmatch 10/11/18 10/11/18 10/11/18 17:03 17:52 18:00 WBC RBC Hgb Hct RDW Plt Count Neutrophils # Lymphocytes # APTT ABG pH ABG pCO2 ABG pO2 60 L ABG HCO3 ABG Total CO2 26 H ABG O2 Saturation 91.1 L ABG Glucose Hemoglobin Chloride BUN Glucose POC Glucose (mg/dL) 148 H 144 H Hemoglobin A1c AST ALT Troponin I Total Protein Albumin Triglycerides LDL Cholesterol, Calc Arterial Blood Glucose Ur Specific [place] Urine Protein Urine Glucose (UA) Urine Blood Urine Mucus Crossmatch - Diagnostic Findings Chest x-ray: report reviewed, image reviewed CT scan - chest: report reviewed, image reviewed Assessment and Plan Plan: Assessment: #1. Coronary artery disease, status post 1 vessel coronary artery bypass with CHE to LAD, postoperative day 0 #2. Non-ST elevated myocardial infarction #3. Routine postoperative ventilator management #4. Morbid obesity #5. Hypertension #6. Hyperlipidemia #7. History of CVA/TIA #8. GERD/reflux #9. History of pernicious anemia on monthly injections #10. History of bowel resection related to bowel obstruction #11. Skin cancer, basal, with resection #12. Never smoker #13. History of EtOH abuse, currently in remission #14. Chronic back pain Plan: Chest x-ray, blood gas has been reviewed, and the Serevent adjustments have been made as mentioned above. Maintain pain control, patient is currently on Precedex drip, hemodynamically stable, no significant output from the chest tubes. In sinus mechanism, vital signs are stable. Krueger catheter is in, patient is nonoliguric. Patient started to wake up and follow commands, although the gas shows persistent hypoxemia, patient is still requiring FiO2 of 80%. We'll follow the weaning protocol. Incentive spirometry to the bedside after extubation. Daily labs and chest x-rays, we'll continue to follow with CT surgery I performed a history & physical examination of the patient and discussed their management with my nurse practitioner, Hanny Ahmadi. I reviewed the nurse practitioner's note and agree with the documented findings and plan of care. Lung sounds are positive for clear diminished breath sounds. The findings and the impression was discussed with the patient. I attest to the documentation by the nurse practitioner. Time with Patient: Greater than 30
[2018-10-11 19:28] LABS: Glucose,Whole Blood 144 mg/dL (75-99)
[2018-10-11] MEDS: CHLORHEXIDINE GLUCONATE 15 ML CUP MUCOUS MEM SCH ×2 (19:39→21:18)
[2018-10-11 20:04] LABS: Glucose,Whole Blood 139 mg/dL (75-99)
[2018-10-11 20:18] LABS: Basophils % (A) 0 %; Eosinophils # (A) 0.1 k/uL (0-0.7); Eosinophils % (A) 0 %; HCT 34.5 % (39.0-53.0); HGB 11.6 gm/dL (13.0-17.5); Lymphocytes # (A) 0.6 k/uL (1.0-4.8); Lymphocytes % (A) 6 %; MCH 29.6 pg (25.0-35.0); MCHC 33.7 g/dL (31.0-37.0); MCV 87.8 fL (80.0-100.0); Mean Platelet Volume 7.7; Monocytes # (A) 0.5 k/uL (0-1.0); Monocytes % (A) 4 %; Neutrophils # (A) 9.9 k/uL (1.3-7.7); Neutrophils % (A) 89 %; Platelet Count 131 k/uL (150-450); RBC 3.93 m/uL (4.30-5.90); RDW 13.8 % (11.5-15.5); WBC 11.2 k/uL (3.8-10.6)
[2018-10-11 20:28] LABS: African American GFR (CKD) >90 (>60 ml/min/1.73 sqM); Anion Gap 5 mmol/L; Blood Urea Nitrogen 20 mg/dL (9-20); Calcium 8.5 mg/dL (8.4-10.2); Carbon Dioxide 25 mmol/L (22-30); Chloride 109 mmol/L (98-107); Glucose 134 mg/dL (74-99); Potassium 4.4 mmol/L (3.5-5.1); Sodium 139 mmol/L (137-145)
[2018-10-11 21:09] LABS: Glucose,Whole Blood 127 mg/dL (75-99)
[2018-10-11] MEDS: MUPIROCIN 2% OINT 22 GM TUBE NASAL SCH (21:18)
[2018-10-11] MEDS: TAMSULOSIN 0.4 MG CAP.ER.24H PO SCH (21:18)
[2018-10-11] MEDS: HEPARIN SODIUM,PORCINE 5,000 UNIT/ML 1 ML VIAL SQ SCH (21:29)
--- NOTE | 2018-10-11 21:49 | PN ---
PROGRESS NOTE DATE OF SERVICE: 10/11/2018. This 73-year-old gentleman who was admitted after acute non ST segment elevation myocardial infarction, underwent single-vessel CABG and CHE to LAD. The patient is mechanically ventilated at this time. The tidal volume 500 with 80% FiO2. The patient is on insulin drip about 2 units, blood sugar 723. Patient is being sedated. No chest pain. No palpitations. No fever. EXAM: Patient is sedated. Pulse is 70. Blood pressure 120/72. Respiration 22, temperature is 96.8, pulse ox 98% on mechanical ventilation. HEENT: Conjunctivae normal. NECK: No jugular venous distention. CARDIOVASCULAR: S1, S2 muffled. RESPIRATORY: Breath sounds diminished in the bases. Scattered rhonchi. ABDOMEN soft. NERVOUS SYSTEM: Patient is sedated. LABS: WBC 11.2, hemoglobin 11.6. Other labs are noted. ASSESSMENT: 1. Acute non ST segment elevation myocardial infarction status post coronary artery bypass grafting to CHE to left anterior descending coronary artery for left anterior descending coronary artery stenosis. 2. Troponin elevated up to 0.056. 3. Ectatic aorta in the CT scan. 4. Gastroesophageal reflux disease. 5. History of cerebrovascular accident/transient ischemic attack. 6. Hyperlipidemia. 7. Hypertension. 8. History of degenerative joint disease. 9. History of transient ischemic attack. 10.History of pernicious anemia on monthly injections. 11.History of degenerative joint disease. 12.History of cholecystectomy. 13.History of bowel resection. 14.Obesity with body mass index 46.2. RECOMMENDATIONS AND DISCUSSION: Recommend to continue current medications, monitoring, management and symptomatic treatment. Otherwise, at this time, I recommend continue insulin drip. Monitor blood sugars closely. The patient may be able to be switched to Accu-Cheks a.c. and q.h.s. also once the blood sugars are controlled. We will follow the patient closely with you and continue the rest of the medications. Follow closely with Dr. French. Cardiothoracic Surgery. Further recommendations to follow. MMODL / IJN: [id number] /
[2018-10-11 22:06] LABS: Glucose,Whole Blood 123 mg/dL (75-99)
[2018-10-11 23:02] LABS: Glucose,Whole Blood 117 mg/dL (75-99)
--- NOTE | 2018-10-11 23:46 | OP ---
OPERATIVE REPORT DATE OF SURGERY: 10/11/2018 SURGEON: Dr. Jena Fallon. ASSISTANTS: 1. GUILLE Abdalla. 2. GUILLE Matias. PREOPERATIVE DIAGNOSES: 1. Unstable angina. 2. LAD system complex disease. 3. Preserved left ventricular function. 4. Mild aortic valve stenosis. 5. Morbid obesity. 6. Hypertension. 7. Hyperlipidemia. 8. Venous insufficiency. 9. Spinal stenosis. 10.Pernicious anemia. POSTOPERATIVE DIAGNOSES: 1. Unstable angina. 2. LAD system complex disease. 3. Preserved left ventricular function. 4. Mild aortic valve stenosis. 5. Morbid obesity. 6. Hypertension. 7. Venous insufficiency. 8. Spinal stenosis. 9. Pernicious anemia. PROCEDURE: 1. All-arterial double beating heart coronary artery bypass grafting using the left internal mammary artery sequentially in a [id number]-cp-qjpt to the second diagonal artery, then to the left anterior descending artery in an end-to-side fashion. 2. Closure of the sternum with a combination of cable and plating system from Brammo/piAffinion Groupeer. 3. Intraoperative transesophageal echocardiogram and epiaortic scanning. 4. Intraoperative graft flow measurements using the Setred system. INDICATION FOR SURGERY: Patient is a morbidly obese gentleman with the above risk factors who presented with a 2-day history of recent-onset chest pain occurring even at rest. Cardiac catheterization showed complex stenosis of the proximal to mid left anterior descending artery involving the takeoff of also 2 diagonal arteries. That was deemed complex for angioplasty, and decision was made to offer the patient a beating heart all- arterial procedure. The STS risk was discussed with him and his . They understood it and agreed to proceed. DESCRIPTION OF THE PROCEDURE: In the preoperative holding area a right internal jugular [place]-Nicolle catheter and a right radial arterial line were placed. The patient had normal cardiac index and a PA pressure of around 45/22. Subsequently he was brought to the operating room, where general endotracheal anesthesia was induced uneventfully. Krueger catheter was inserted. He received 3 grams of cefazolin intravenously. The chest, abdomen and both lower extremities were prepped and draped using ChloraPrep. Ioban was used to cover the skin. Transesophageal echocardiogram confirmed the preoperative finding of mild trileaflet aortic valve stenosis and no other significant valvular abnormalities and preserved systolic function. Midline sternotomy was performed and there was a thick subcutaneous fat layer. 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 The left hemisternum was elevated and the left internal mammary artery was harvested in a semi-skeletonized fashion. The left pleura was intentionally opened in this process and was drained with a 19-[place] Terrell drain. Mediastinal fat was transected between 2 ties and epiaortic scanning revealed some wall disease posteriorly in the aorta but no protruding atheroma. The pericardium was opened in an inverted T-fashion and a pericardial cradle was created. Findings included a normal soft aorta and a mildly enlarged heart that was fatty. The Acrobat system along with the Xpose device and the mister blower were used to perform the surgery on a beating heart. Heparinization to achieve an ACT above 250 seconds was administered. The mammary artery was clipped distally and transected and had excellent pulsatile flow in it. We looked at the target and we could identify the last diagonal artery and the left anterior descending artery in the midst of epicardial fat. That was amenable to a sequential strategy. The first distal anastomosis was performed between the left internal mammary artery and the last diagonal artery which was opened and accepted a 1.5 mm shunt. The anastomosis was done in a [id number] parallel fashion using Prolene 7-0 in continuous fashion. The shunt was removed before completing the anastomosis, which was well tolerated. Graft flow measurements at this point revealed excellent parameters with a flow of 37 mL/minute, pulsatility index of 2.7 and diastolic filling of 84%. The second distal anastomosis was between the end of the left internal mammary artery and the side of the distal left anterior descending artery, which was opened and had profuse flow in it, accepted a 1.5 mm shunt using Prolene 7-0 in continuous fashion. The shunt was removed before completing the anastomosis, which was well tolerated. Graft flow measurements of that segment revealed a flow of 47 mL/minute, pulsatility index of 1.9, and diastolic filling of 70%, showing an excellent graft. The patient was given half-dose protamine. Pericardial fat was approximated over the heart and the aorta. Two 19-[place] Terrell drains were placed, one substernally, one in the posterior pericardium. With the heart in position, I measured flow at the proximal aspect of the left internal mammary artery and the flow was 123 mL/minute, pulsatility index of 2.3, diastolic filling of 79%, showing obviously a patent graft to both distal targets. After ensuring adequate hemostasis and after good instrument and sponge counts, the sternum was closed using a combination of 3 pineal cables as well as 3 Tritium plates. A V plate on the manubrium affixed with 4 screws, 60 mm each. Two X-shaped plates on the body of the sternum affixed with a total of 16 screws, 14 mm each. Thorough irrigation with cefazolin followed. The rest of the closure proceeded in layers. Skin glue was applied. The patient did not receive any blood bank product but received 200 mL of Cell Saver blood. He was transferred to the ICU in stable condition on low-dose Jason- Synephrine with a heart rate of 72, mean arterial pressure of 70, PA pressure of 30/13. MMODL / IJN: [id number] / MTDD
[2018-10-11 23:57] LABS: ABG PH 7.39 (7.35-7.45)
[2018-10-11 23:58] LABS: ABG HCO3 24 mmol/L (21-25); ABG PCO2 40 mmHg (35-45); ABG PO2 62 mmHg (83-108)
[2018-10-11 23:59] LABS: ABG Base Excess -0.6 mmol/L; ABG Oxygen Saturation 91.5 % (94-97)
[2018-10-12 00:09] LABS: Glucose,Whole Blood 122 mg/dL (75-99)
[2018-10-12] MEDS: IPRATROPIUM-ALBUTEROL 3 ML NEB INHALATION PRN ×2 (00:34→03:39)
[2018-10-12] MEDS: CLEVIDIPINE BUTYRATE 25 MG in EMPTY BAG 1 BAG IV SCH ×5 (00:39→22:21)
[2018-10-12] MEDS: DEXMEDETOMIDINE/0.9% NACL(PMX) 400 MCG in EMPTY BAG 1 BAG IV SCH ×3 (00:40→08:12)
[2018-10-12] MEDS: ceFAZolin 3 GM in SODIUM CHLORIDE 0.9% 100 ML IVPB SCH ×4 (00:46→23:48)
[2018-10-12] MEDS: ACETAMINOPHEN IV (For NPO) 1,000 MG in EMPTY BAG 1 BAG IVPB SCH (00:46)
[2018-10-12 01:09] LABS: Glucose,Whole Blood 122 mg/dL (75-99)
[2018-10-12 02:08] LABS: Glucose,Whole Blood 135 mg/dL (75-99)
[2018-10-12 03:09] LABS: Glucose,Whole Blood 131 mg/dL (75-99)
[2018-10-12 04:17] LABS: Glucose,Whole Blood 113 mg/dL (75-99)
[2018-10-12 04:29] LABS: ABG Base Excess -1.9 mmol/L; ABG HCO3 22 mmol/L (21-25); ABG Oxygen Saturation 94.2 % (94-97); ABG PCO2 38 mmHg (35-45); ABG PH 7.39 (7.35-7.45); ABG PO2 71 mmHg (83-108); Allen Test Performed? Yes
[2018-10-12 05:07] LABS: Glucose,Whole Blood 119 mg/dL (75-99)
[2018-10-12] MEDS: HEPARIN SODIUM,PORCINE 5,000 UNIT/ML 1 ML VIAL SQ SCH ×3 (05:10→20:06)
[2018-10-12 05:25] LABS: Basophils % (A) 0 %; Eosinophils # (A) 0.1 k/uL (0-0.7); Eosinophils % (A) 0 %; HCT 35.4 % (39.0-53.0); HGB 11.8 gm/dL (13.0-17.5); Lymphocytes # (A) 0.7 k/uL (1.0-4.8); Lymphocytes % (A) 6 %; MCH 29.5 pg (25.0-35.0); MCHC 33.3 g/dL (31.0-37.0); MCV 88.4 fL (80.0-100.0); Mean Platelet Volume 8.7; Monocytes # (A) 0.6 k/uL (0-1.0); Monocytes % (A) 5 %; Neutrophils # (A) 10.2 k/uL (1.3-7.7); Neutrophils % (A) 88 %; Platelet Count 131 k/uL (150-450); RDW 15.2 % (11.5-15.5); WBC 11.7 k/uL (3.8-10.6)
[2018-10-12 05:31] LABS: Ionized Calcium 4.9 mg/dL (4.5-5.3)
[2018-10-12 05:38] LABS: ALT 66 U/L (21-72); AST 88 U/L (17-59); African American GFR (CKD) >90 (>60 ml/min/1.73 sqM); Albumin 3.2 g/dL (3.5-5.0); Alkaline Phosphatase 49 U/L (38-126); Anion Gap 6 mmol/L; Blood Urea Nitrogen 23 mg/dL (9-20); Calcium 8.3 mg/dL (8.4-10.2); Carbon Dioxide 23 mmol/L (22-30); Chloride 109 mmol/L (98-107); Glucose 118 mg/dL (74-99); Magnesium 1.9 mg/dL (1.6-2.3); Potassium 4.1 mmol/L (3.5-5.1); Sodium 138 mmol/L (137-145); Total Bilirubin 0.7 mg/dL (0.2-1.3); Total Protein 5.4 g/dL (6.3-8.2)
[2018-10-12] MEDS ORDERED: HYDROcodone/APAP 5-325MG 1 EACH TAB PO PRN (06:00)
[2018-10-12 06:16] LABS: Glucose,Whole Blood 107 mg/dL (75-99)
[2018-10-12] MEDS: IPRATROPIUM-ALBUTEROL 3 ML NEB INHALATION SCH ×4 (07:09→21:33)
[2018-10-12 07:11] LABS: Glucose,Whole Blood 120 mg/dL (75-99)
--- NOTE | 2018-10-12 07:41 | XR ---
EXAMINATION TYPE: XR chest 1V portable DATE OF EXAM: 10/12/2018 COMPARISON: 10/11/2018 HISTORY: Ventilatory dependent respiratory failure TECHNIQUE: Single frontal view of the chest is obtained. FINDINGS: Small layering left pleural effusion is stable with left basilar airspace disease. Plateli ke right midlung atelectasis and new right basilar platelike atelectasis or linear in orientation. Ca rdia mediastinal silhouette remains enlarged with [place]-Nicolle catheter, endotracheal tube, and enteric tube demonstrating similar placement. Postsurgical changes of the mediastinum are noted. No sizable p neumothorax although the patient's chin obscures the left lung apex. IMPRESSION: Similar small layering left pleural effusion and bilateral airspace disease, likely atel ectasis with additional new area of linear right basilar probable atelectasis. Lines and tubes appear stable.
[2018-10-12] MEDS: MORPHINE SULFATE 2 MG/ML SYRINGE IVP PRN (08:00)
[2018-10-12] MEDS ORDERED: FUROSEMIDE 10 MG/ML 2 ML VIAL IV ONE (08:00)
--- NOTE | 2018-10-12 08:02 | PN ---
PROGRESS NOTE Mr. Pimentel is a 73-year-old male who presented with symptoms of angina pectoris, underwent cardiac catheterization by Dr. Bianca Sprague and subsequently coronary bypass grafting by Dr. Fallon where he received a CHE to the LAD in the diagonal branch. He remains intubated in the process to be weaned off and extubated. He is hemodynamically stable, in sinus mechanism. He continues to be at this time on IV Cleviprex and IV nitroglycerin that is being weaned off. His urine output is stable. He has no evidence of ventricular ectopic activity nor atrial fibrillation. He continues to be on aspirin once a day, Lipitor 10 mg daily and metoprolol tartrate 12.5 mg twice a day. PHYSICAL EXAMINATION: Blood pressure 106/50 with a heart rate in the 70s. His PA pressure is systolic of 33. LUNGS: Clear anteriorly. HEART: Regular rate and rhythm, S1, S2. No rub appreciated. ABDOMEN: Soft, positive bowel sounds, no organomegaly. EXTREMITIES: No edema. LAB DATA: Revealed BUN and creatinine 23 and 0.95, potassium 4.1, hemoglobin of 11.8. IMPRESSION: 1. Status post coronary artery bypass grafting. Plan is to wean and extubate this morning. 2. History of hypertension. 3. Obesity. 4. History of hyperlipidemia. RECOMMENDATION: I will continue present therapy, extubate hopefully the patient today. Will adjust the dose of his statin as well as his beta car and depending on his progress, further recommendation will be made. MMKIARAL / FIONAN: [id number] /
[2018-10-12] MEDS: CHLORHEXIDINE GLUCONATE 15 ML CUP MUCOUS MEM SCH (08:11)
[2018-10-12] MEDS: CLOPIDOGREL 75 MG TAB PO SCH (08:11)
[2018-10-12] MEDS: CYANOCOBALAMIN 500 MCG TAB PO SCH (08:11)
[2018-10-12] MEDS: CHOLECALCIFEROL 1,000 UNIT TAB PO SCH (08:11)
[2018-10-12] MEDS: ATORVASTATIN 40 MG TAB PO SCH (08:11)
[2018-10-12] MEDS: ASPIRIN 325 MG TAB PO SCH (08:11)
[2018-10-12] MEDS: MUPIROCIN 2% OINT 22 GM TUBE NASAL SCH ×2 (08:12→20:06)
[2018-10-12 08:20] LABS: Glucose,Whole Blood 149 mg/dL (75-99)
[2018-10-12 08:39] LABS: ABG Base Excess -2.6 mmol/L; ABG HCO3 21 mmol/L (21-25); ABG Oxygen Saturation 92.1 % (94-97); ABG PCO2 35 mmHg (35-45); ABG PO2 66 mmHg (83-108); Allen Test Performed? Yes
[2018-10-12] MEDS ORDERED: BISACODYL 10 MG SUPP RECTAL PRN (09:00)
[2018-10-12] MEDS ORDERED: PANTOPRAZOLE 40 MG/10 ML VIAL IVP SCH (09:00)
[2018-10-12] MEDS ORDERED: METOPROLOL TARTRATE 12.5 MG TAB PO SCH (09:00)
[2018-10-12] MEDS: NOREPINEPHRINE 4 MG in SODIUM CHLORIDE 0.9% 250 ML IV SCH (09:14)
[2018-10-12] MEDS: LACTATED RINGERS 1,000 ML IV SCH ×2 (09:14→16:25)
--- NOTE | 2018-10-12 10:20 | P.PN ---
Subjective Progress Note Date: 10/12/18 Principal diagnosis: Coronary artery disease with LAD system complex disease, unstable angina, preserved left ventricular function with ejection fraction of 55-60%, mild aortic valve stenosis, history of hypertension, hyperlipidemia, morbid morbid obesity, basal cell skin cancer with resection, venous insufficiency, spinal stenosis with chronic with chronic back pain, history of EtOH in remission, gastroesophageal reflux disease, prostate disorder, history of TIA with no resi dual effects, osteoarthritis, elevated hemoglobin A1c on admission of 7.1% and pernicious anemia. POD #1 urgent all arterial Doppler beating heart coronary artery bypass grafting using the left internal mammary artery sequentially in a side to side fashion to the second diagonal coronary artery, then to the left anterior descending coronary artery in an end-to-side fashion. Closure of the sternum with a combination of cable and plating system from [employer]. Intraoperative transesophageal echocardiogram and epi-aortic scanning. Intraoperative graft flow measurements using the [employer] system. Postoperative acute blood loss anemia, an expected outcome due to hemodilution and his history of pernicious anemia. The patient remains in bed in the intensive care unit in no acute distress. He was successfully extubated this morning at 9:02 AM and is currently on BiPAP support 10/5, rate 10, FiO2 55%. He is complaining of surgical type pain to his chest tube insertion sites and denies complaints of shortness of breath. He is hemodynamically stable cardiac output 8.2, cardiac index 3.0, PA pressures 32/19, CVP 14 mmHg., remains on Cleviprex drip at 4 mg per hour for blood pressure control. Precedex drip is currently off. He is alert and oriented 3. Moving all 4 extremities extremities appropriately. Objective - Vital Signs Vital signs: Vital Signs Temp 100.2 F H 10/12/18 08:00 Pulse 77 10/12/18 09:00 Resp 19 10/12/18 09:00 BP 113/61 10/12/18 04:00 Pulse Ox 92 L 10/12/18 09:00 Intake & Output 10/11/18 10/12/18 10/12/18 18:59 06:59 18:59 Intake Total 482.061 0335.102 421.171 Output Total 1857 855 340 Balance -1122.201 583.102 81.171 Weight 163.1 kg Intake: IV 590 968 225.0 ACETAMINOPHEN IV (For NPO 100 100 ) 1,000 mg In Empty Bag 1 bag @ 400 mls/hr IVPB Q6HR MARCEL Rx#:[id number] Lactated Ringers 1,000 ml 300 600 90 @ 20 mls/hr IV .Q24H MARCEL Rx#:[id number] Nitroglycerin-D5w Pmx 50 30 60 8.0 mg In Dextrose/Water 1 250ml.bag @ 5 MCG/MIN 1.5 mls/hr IV .Q24H MARCEL Rx#: [id number] Pressure Bags 54 108 27 ceFAZolin 3 gm In Sodium 100 100 100 Chloride 0.9% 100 ml @ 100 mls/hr IVPB Q8HR MARCEL Rx#:[id number] Intake, IV Titration 144.799 470.102 196.171 Amount Clevidipine Butyrate 25 27.533 157.800 19.833 mg In Empty Bag 1 bag @ 1 MG/HR 2 mls/hr IV .Q24H MARCEL Rx#:[id number] Dexmedetomidine/0.9% NaCl 63.673 270.460 146.838 (Pmx) 400 mcg In Empty Bag 1 bag @ Titrate IV . Q0M MARCEL Rx#:[id number] Insulin Regular 100 unit 8.333 41.842 0 In Sodium Chloride 0.9% 100 ml @ Titrate IV .Q0M MARCEL Rx#:[id number] Nitroglycerin-D5w Pmx 50 29.5 mg In Dextrose/Water 1 250ml.bag @ 5 MCG/MIN 1.5 mls/hr IV .Q24H MARCEL Rx#: [id number] Propofol 1,000 mg In 45.26 Empty Bag 1 bag @ Titrate IV .Q0M MARCEL Rx#: [id number] Output: Chest Tube Drainage 647 300 30 Left 440 90 30 Mediastinal 207 210 0 Urine 710 555 310 Estimated Blood Loss 500 Other: Voiding Method Indwelling Catheter Indwelling Catheter Indwelling Catheter ABP, PAP, CO, CI - Last Documented Arterial Blood Pressure 123/54 Pulmonary Artery Pressure 34/17 Cardiac Output 6.4 Cardiac Index 2.4 - Constitutional General appearance: Present: cooperative, morbidly obese, no acute distress - Respiratory Details: Lungs sounds essentially diminished throughout. Respirations are symmetrical and nonlabored with BiPAP support. Current BiPAP settings are as follows: 10/5, rate of 10, FiO2 55%. Oxygen saturations are 92% on current BiPAP settings. Mediastinal and left pleural chest tubes remain in place to low continuous wall suction -20 cm H2O. No air leak is present. Draining thin serosanguineous drainage. Left pleural chest tubes with 60 mL output in the last 8 hours, 550 mL output since surgery. Mediastinal chest tubes with 130 mL output in the last 8 hours, 430 mL output since surgery. - Cardiovascular Details: Regular rhythm and rate. S1 and S2 present, negative for S3, gallop or murmur. Sternum is stable. Bedside telemetry showing normal sinus rhythm heart rate 70. Trace edema to his bilateral lower extremities. Heart hugger is in place and he is demonstrating appropriate use. Right IJ Cordis and [place]le in place. Current cardiac output 8.2, cardiac index 3.0, PA pressures 32/19, CVP 14 mmHg. Left radial arterial line in place and functioning. Knee-high MESSI hose and sequential compression devices in place to his bilateral lower extremities. - Gastrointestinal Gastrointestinal Comment(s): Abdomen is soft, nontender and nondistended. Morbidly obese. Hypoactive bowel sounds present in all 4 abdominal quadrants. No guarding or rigidity, no organomegaly. - Genitourinary Genitourinary Comment(s): Krueger catheter for accurate I&O. Draining clear rose urine. 360 mL output in the last 8 hours. - Integumentary Integumentary Comment(s): Skin is warm and dry. No clubbing or cyanosis is present. Midline sternal incision is clean, dry and approximated. No drainage or redness is present. Gauze dressing is clean, dry and intact. - Neurologic Neurologic: Present: CNII-XII intact - Musculoskeletal Musculoskeletal: Present: gait normal, generalized weakness, strength equal bilaterally - Psychiatric Psychiatric Comment(s): Rate of anxiousness Psychiatric: Present: A&O x's 3, appropriate affect, intact judgment & insight - Allied health notes Allied health notes reviewed: nursing - Labs CBC & Chem 7: 10/12/18 05:10 10/12/18 05:10 Labs: Abnormal Lab Results - Last 24 Hours (Table) 10/10/18 10/11/18 10/11/18 Range/Units 22:24 08:45 10:07 WBC (3.8-10.6) k/uL RBC (4.30-5.90) m/uL Hgb (13.0-17.5) gm/dL Hct (39.0-53.0) % Plt Count (150-450) k/uL Neutrophils # (1.3-7.7) k/uL Lymphocytes # (1.0-4.8) k/uL APTT (22.0-30.0) sec ABG pH (7.35-7.45) ABG pCO2 46 H (35-45) mmHg ABG pO2 148 H (83-108) mmHg ABG HCO3 28 H 26 H (21-25) mmol/L ABG Total CO2 29 H 27 H (19-24) mmol/L ABG O2 Saturation 99.8 H 98.1 H (94-97) % ABG Glucose 124 H 140 H (75-99) mg/dL Hemoglobin 12.7 L 11.7 L (13.0-17.5) gm/dL Chloride (98-107) mmol/L BUN (9-20) mg/dL Glucose (74-99) mg/dL POC Glucose (mg/dL) (75-99) mg/dL Calcium (8.4-10.2) mg/dL AST (17-59) U/L ALT (21-72) U/L Total Protein (6.3-8.2) g/dL Albumin (3.5-5.0) g/dL Arterial Blood Glucose 124 H 140 H (75-99) mg/dL Crossmatch See Detail 10/11/18 10/11/18 10/11/18 Range/Units 10:42 11:25 12:08 WBC (3.8-10.6) k/uL RBC (4.30-5.90) m/uL Hgb (13.0-17.5) gm/dL Hct (39.0-53.0) % Plt Count (150-450) k/uL Neutrophils # (1.3-7.7) k/uL Lymphocytes # (1.0-4.8) k/uL APTT (22.0-30.0) sec ABG pH (7.35-7.45) ABG pCO2 48 H (35-45) mmHg ABG pO2 123 H 50 L* 127 H (83-108) mmHg ABG HCO3 26 H (21-25) mmol/L ABG Total CO2 27 H 28 H 26 H (19-24) mmol/L ABG O2 Saturation 99.6 H 85.9 L 99.6 H (94-97) % ABG Glucose 148 H 140 H 146 H (75-99) mg/dL Hemoglobin 11.4 L 11.2 L 11.6 L (13.0-17.5) gm/dL Chloride (98-107) mmol/L BUN (9-20) mg/dL Glucose (74-99) mg/dL POC Glucose (mg/dL) (75-99) mg/dL Calcium (8.4-10.2) mg/dL AST (17-59) U/L ALT (21-72) U/L Total Protein (6.3-8.2) g/dL Albumin (3.5-5.0) g/dL Arterial Blood Glucose 148 H 140 H 146 H (75-99) mg/dL Crossmatch 10/11/18 10/11/18 10/11/18 Range/Units 13:39 13:39 13:39 WBC 13.4 H (3.8-10.6) k/uL RBC 3.85 L (4.30-5.90) m/uL Hgb 11.2 L (13.0-17.5) gm/dL Hct 34.1 L (39.0-53.0) % Plt Count (150-450) k/uL Neutrophils # 11.5 H (1.3-7.7) k/uL Lymphocytes # (1.0-4.8) k/uL APTT (22.0-30.0) sec ABG pH (7.35-7.45) ABG pCO2 (35-45) mmHg ABG pO2 (83-108) mmHg ABG HCO3 (21-25) mmol/L ABG Total CO2 (19-24) mmol/L ABG O2 Saturation (94-97) % ABG Glucose (75-99) mg/dL Hemoglobin (13.0-17.5) gm/dL Chloride 109 H (98-107) mmol/L BUN (9-20) mg/dL Glucose 123 H (74-99) mg/dL POC Glucose (mg/dL) 123 H (75-99) mg/dL Calcium (8.4-10.2) mg/dL AST 93 H (17-59) U/L ALT 86 H (21-72) U/L Total Protein 5.6 L (6.3-8.2) g/dL Albumin 3.3 L (3.5-5.0) g/dL Arterial Blood Glucose (75-99) mg/dL Crossmatch 10/11/18 10/11/18 10/11/18 Range/Units 13:39 13:48 14:18 WBC (3.8-10.6) k/uL RBC (4.30-5.90) m/uL Hgb (13.0-17.5) gm/dL Hct (39.0-53.0) % Plt Count (150-450) k/uL Neutrophils # (1.3-7.7) k/uL Lymphocytes # (1.0-4.8) k/uL APTT 57.8 H (22.0-30.0) sec ABG pH 7.29 L (7.35-7.45) ABG pCO2 54 H (35-45) mmHg ABG pO2 191 H (83-108) mmHg ABG HCO3 26 H (21-25) mmol/L ABG Total CO2 28 H (19-24) mmol/L ABG O2 Saturation 98.9 H (94-97) % ABG Glucose (75-99) mg/dL Hemoglobin (13.0-17.5) gm/dL Chloride (98-107) mmol/L BUN (9-20) mg/dL Glucose (74-99) mg/dL POC Glucose (mg/dL) 117 H (75-99) mg/dL Calcium (8.4-10.2) mg/dL AST (17-59) U/L ALT (21-72) U/L Total Protein (6.3-8.2) g/dL Albumin (3.5-5.0) g/dL Arterial Blood Glucose (75-99) mg/dL Crossmatch 10/11/18 10/11/18 10/11/18 Range/Units 14:35 15:00 16:15 WBC (3.8-10.6) k/uL RBC (4.30-5.90) m/uL Hgb (13.0-17.5) gm/dL Hct (39.0-53.0) % Plt Count (150-450) k/uL Neutrophils # (1.3-7.7) k/uL Lymphocytes # (1.0-4.8) k/uL APTT (22.0-30.0) sec ABG pH 7.34 L (7.35-7.45) ABG pCO2 47 H (35-45) mmHg ABG pO2 (83-108) mmHg ABG HCO3 (21-25) mmol/L ABG Total CO2 27 H (19-24) mmol/L ABG O2 Saturation (94-97) % ABG Glucose (75-99) mg/dL Hemoglobin (13.0-17.5) gm/dL Chloride (98-107) mmol/L BUN (9-20) mg/dL Glucose (74-99) mg/dL POC Glucose (mg/dL) 117 H 134 H (75-99) mg/dL Calcium (8.4-10.2) mg/dL AST (17-59) U/L ALT (21-72) U/L Total Protein (6.3-8.2) g/dL Albumin (3.5-5.0) g/dL Arterial Blood Glucose (75-99) mg/dL Crossmatch 10/11/18 10/11/18 10/11/18 Range/Units 16:35 17:03 17:52 WBC 11.1 H (3.8-10.6) k/uL RBC 4.02 L (4.30-5.90) m/uL Hgb 11.7 L (13.0-17.5) gm/dL Hct 35.4 L (39.0-53.0) % Plt Count 134 L (150-450) k/uL Neutrophils # 9.9 H (1.3-7.7) k/uL Lymphocytes # 0.5 L (1.0-4.8) k/uL APTT (22.0-30.0) sec ABG pH (7.35-7.45) ABG pCO2 (35-45) mmHg ABG pO2 60 L (83-108) mmHg ABG HCO3 (21-25) mmol/L ABG Total CO2 26 H (19-24) mmol/L ABG O2 Saturation 91.1 L (94-97) % ABG Glucose (75-99) mg/dL Hemoglobin (13.0-17.5) gm/dL Chloride (98-107) mmol/L BUN (9-20) mg/dL Glucose (74-99) mg/dL POC Glucose (mg/dL) 148 H (75-99) mg/dL Calcium (8.4-10.2) mg/dL AST (17-59) U/L ALT (21-72) U/L Total Protein (6.3-8.2) g/dL Albumin (3.5-5.0) g/dL Arterial Blood Glucose (75-99) mg/dL Crossmatch 10/11/18 10/11/18 10/11/18 Range/Units 18:00 19:08 20:00 WBC (3.8-10.6) k/uL RBC (4.30-5.90) m/uL Hgb (13.0-17.5) gm/dL Hct (39.0-53.0) % Plt Count (150-450) k/uL Neutrophils # (1.3-7.7) k/uL Lymphocytes # (1.0-4.8) k/uL APTT (22.0-30.0) sec ABG pH (7.35-7.45) ABG pCO2 (35-45) mmHg ABG pO2 (83-108) mmHg ABG HCO3 (21-25) mmol/L ABG Total CO2 (19-24) mmol/L ABG O2 Saturation (94-97) % ABG Glucose (75-99) mg/dL Hemoglobin (13.0-17.5) gm/dL Chloride 109 H (98-107) mmol/L BUN (9-20) mg/dL Glucose 134 H (74-99) mg/dL POC Glucose (mg/dL) 144 H 144 H (75-99) mg/dL Calcium (8.4-10.2) mg/dL AST (17-59) U/L ALT (21-72) U/L Total Protein (6.3-8.2) g/dL Albumin (3.5-5.0) g/dL Arterial Blood Glucose (75-99) mg/dL Crossmatch 10/11/18 10/11/18 10/11/18 Range/Units 20:00 20:02 21:08 WBC 11.2 H (3.8-10.6) k/uL RBC 3.93 L (4.30-5.90) m/uL Hgb 11.6 L (13.0-17.5) gm/dL Hct 34.5 L (39.0-53.0) % Plt Count 131 L (150-450) k/uL Neutrophils # 9.9 H (1.3-7.7) k/uL Lymphocytes # 0.6 L (1.0-4.8) k/uL APTT (22.0-30.0) sec ABG pH (7.35-7.45) ABG pCO2 (35-45) mmHg ABG pO2 (83-108) mmHg ABG HCO3 (21-25) mmol/L ABG Total CO2 (19-24) mmol/L ABG O2 Saturation (94-97) % ABG Glucose (75-99) mg/dL Hemoglobin (13.0-17.5) gm/dL Chloride (98-107) mmol/L BUN (9-20) mg/dL Glucose (74-99) mg/dL POC Glucose (mg/dL) 139 H 127 H (75-99) mg/dL Calcium (8.4-10.2) mg/dL AST (17-59) U/L ALT (21-72) U/L Total Protein (6.3-8.2) g/dL Albumin (3.5-5.0) g/dL Arterial Blood Glucose (75-99) mg/dL Crossmatch 10/11/18 10/11/18 10/11/18 Range/Units 22:04 23:00 23:35 WBC (3.8-10.6) k/uL RBC (4.30-5.90) m/uL Hgb (13.0-17.5) gm/dL Hct (39.0-53.0) % Plt Count (150-450) k/uL Neutrophils # (1.3-7.7) k/uL Lymphocytes # (1.0-4.8) k/uL APTT (22.0-30.0) sec ABG pH (7.35-7.45) ABG pCO2 (35-45) mmHg ABG pO2 62 L (83-108) mmHg ABG HCO3 (21-25) mmol/L ABG Total CO2 (19-24) mmol/L ABG O2 Saturation 91.5 L (94-97) % ABG Glucose (75-99) mg/dL Hemoglobin (13.0-17.5) gm/dL Chloride (98-107) mmol/L BUN (9-20) mg/dL Glucose (74-99) mg/dL POC Glucose (mg/dL) 123 H 117 H (75-99) mg/dL Calcium (8.4-10.2) mg/dL AST (17-59) U/L ALT (21-72) U/L Total Protein (6.3-8.2) g/dL Albumin (3.5-5.0) g/dL Arterial Blood Glucose (75-99) mg/dL Crossmatch 10/12/18 10/12/18 10/12/18 Range/Units 00:07 01:07 02:07 WBC (3.8-10.6) k/uL RBC (4.30-5.90) m/uL Hgb (13.0-17.5) gm/dL Hct (39.0-53.0) % Plt Count (150-450) k/uL Neutrophils # (1.3-7.7) k/uL Lymphocytes # (1.0-4.8) k/uL APTT (22.0-30.0) sec ABG pH (7.35-7.45) ABG pCO2 (35-45) mmHg ABG pO2 (83-108) mmHg ABG HCO3 (21-25) mmol/L ABG Total CO2 (19-24) mmol/L ABG O2 Saturation (94-97) % ABG Glucose (75-99) mg/dL Hemoglobin (13.0-17.5) gm/dL Chloride (98-107) mmol/L BUN (9-20) mg/dL Glucose (74-99) mg/dL POC Glucose (mg/dL) 122 H 122 H 135 H (75-99) mg/dL Calcium (8.4-10.2) mg/dL AST (17-59) U/L ALT (21-72) U/L Total Protein (6.3-8.2) g/dL Albumin (3.5-5.0) g/dL Arterial Blood Glucose (75-99) mg/dL Crossmatch 10/12/18 10/12/18 10/12/18 Range/Units 03:07 04:16 04:20 WBC (3.8-10.6) k/uL RBC (4.30-5.90) m/uL Hgb (13.0-17.5) gm/dL Hct (39.0-53.0) % Plt Count (150-450) k/uL Neutrophils # (1.3-7.7) k/uL Lymphocytes # (1.0-4.8) k/uL APTT (22.0-30.0) sec ABG pH (7.35-7.45) ABG pCO2 (35-45) mmHg ABG pO2 71 L (83-108) mmHg ABG HCO3 (21-25) mmol/L ABG Total CO2 (19-24) mmol/L ABG O2 Saturation (94-97) % ABG Glucose (75-99) mg/dL Hemoglobin (13.0-17.5) gm/dL Chloride (98-107) mmol/L BUN (9-20) mg/dL Glucose (74-99) mg/dL POC Glucose (mg/dL) 131 H 113 H (75-99) mg/dL Calcium (8.4-10.2) mg/dL AST (17-59) U/L ALT (21-72) U/L Total Protein (6.3-8.2) g/dL Albumin (3.5-5.0) g/dL Arterial Blood Glucose (75-99) mg/dL Crossmatch 10/12/18 10/12/18 10/12/18 Range/Units 05:05 05:10 05:10 WBC 11.7 H (3.8-10.6) k/uL RBC 4.00 L (4.30-5.90) m/uL Hgb 11.8 L (13.0-17.5) gm/dL Hct 35.4 L (39.0-53.0) % Plt Count 131 L (150-450) k/uL Neutrophils # 10.2 H (1.3-7.7) k/uL Lymphocytes # 0.7 L (1.0-4.8) k/uL APTT (22.0-30.0) sec ABG pH (7.35-7.45) ABG pCO2 (35-45) mmHg ABG pO2 (83-108) mmHg ABG HCO3 (21-25) mmol/L ABG Total CO2 (19-24) mmol/L ABG O2 Saturation (94-97) % ABG Glucose (75-99) mg/dL Hemoglobin (13.0-17.5) gm/dL Chloride 109 H (98-107) mmol/L BUN 23 H (9-20) mg/dL Glucose 118 H (74-99) mg/dL POC Glucose (mg/dL) 119 H (75-99) mg/dL Calcium 8.3 L (8.4-10.2) mg/dL AST 88 H (17-59) U/L ALT (21-72) U/L Total Protein 5.4 L (6.3-8.2) g/dL Albumin 3.2 L (3.5-5.0) g/dL Arterial Blood Glucose (75-99) mg/dL Crossmatch 10/12/18 10/12/18 10/12/18 Range/Units 06:14 07:09 08:19 WBC (3.8-10.6) k/uL RBC (4.30-5.90) m/uL Hgb (13.0-17.5) gm/dL Hct (39.0-53.0) % Plt Count (150-450) k/uL Neutrophils # (1.3-7.7) k/uL Lymphocytes # (1.0-4.8) k/uL APTT (22.0-30.0) sec ABG pH (7.35-7.45) ABG pCO2 (35-45) mmHg ABG pO2 (83-108) mmHg ABG HCO3 (21-25) mmol/L ABG Total CO2 (19-24) mmol/L ABG O2 Saturation (94-97) % ABG Glucose (75-99) mg/dL Hemoglobin (13.0-17.5) gm/dL Chloride (98-107) mmol/L BUN (9-20) mg/dL Glucose (74-99) mg/dL POC Glucose (mg/dL) 107 H 120 H 149 H (75-99) mg/dL Calcium (8.4-10.2) mg/dL AST (17-59) U/L ALT (21-72) U/L Total Protein (6.3-8.2) g/dL Albumin (3.5-5.0) g/dL Arterial Blood Glucose (75-99) mg/dL Crossmatch 10/12/18 Range/Units 08:35 WBC (3.8-10.6) k/uL RBC (4.30-5.90) m/uL Hgb (13.0-17.5) gm/dL Hct (39.0-53.0) % Plt Count (150-450) k/uL Neutrophils # (1.3-7.7) k/uL Lymphocytes # (1.0-4.8) k/uL APTT (22.0-30.0) sec ABG pH (7.35-7.45) ABG pCO2 (35-45) mmHg ABG pO2 66 L (83-108) mmHg ABG HCO3 (21-25) mmol/L ABG Total CO2 (19-24) mmol/L ABG O2 Saturation 92.1 L (94-97) % ABG Glucose (75-99) mg/dL Hemoglobin (13.0-17.5) gm/dL Chloride (98-107) mmol/L BUN (9-20) mg/dL Glucose (74-99) mg/dL POC Glucose (mg/dL) (75-99) mg/dL Calcium (8.4-10.2) mg/dL AST (17-59) U/L ALT (21-72) U/L Total Protein (6.3-8.2) g/dL Albumin (3.5-5.0) g/dL Arterial Blood Glucose (75-99) mg/dL Crossmatch Microbiology - Last 24 Hours (Table) 10/10/18 19:43 Urine Culture - Final Urine,Clean Catch 10/10/18 14:00 Nasal Screen MRSA/MSSA - Final Nasal Swab - Imaging and Cardiology Chest x-ray: report reviewed, image reviewed Assessment and Plan Assessment: 1. Coronary artery disease with LAD system complex disease, status post coronary artery bypass grafting 2 vessels 2. Unstable angina 3. His left ventricular function with an ejection fraction of 55-60% 4. Mild aortic valve stenosis 5. Hypertension 6. Hyperlipidemia 7. Morbid obesity 8. History of venous insufficiency 9. Spinal stenosis with chronic back pain 10. History of EtOH abuse, in remission 11. Prostate disorder 12. History of TIA with no residual effects 13. Osteoarthritis 14. Pernicious anemia 15. Elevated hemoglobin A1c on admission 16. Acute postoperative blood loss anemia, an expected outcome due to hemodilution and history of pernicious anemia Plan: 1. Continue to maximize medical therapy with aspirin, statin, and beta car. Will increase beta car therapy as tolerated. 2. Wean Bipap as tolerated, managed by pulmonary medicine. 3. Encourage incentive spirometry use 10 times every hour while awake. 4. Increase activity, ambulate as tolerated. PT/OT/cardiac rehab following. 5. Will monitor daily labs and x-rays. Electrolyte replacement per protocol. 6. Pain control with current medication regimen. Toradol added. 7. Insulin management per primary care service. 8. GI/DVT prophylaxis. 9. Keep mediastinal and left pleural chest tubes in place to low continuous wall suction -20 cm H2O. 10. Keep [place] catheter and left radial arterial line in place today. 11. Keep Krueger catheter in place for accurate I&O. Patient has been placed on his home dose of Flomax. 12. More recommendations to follow based on patient's clinical course. Time with Patient: Greater than 30
[2018-10-12] MEDS: MAGNESIUM SULFATE-D5W PMX 1 GM in DEXTROSE/WATER 1 100ML.BAG IVPB SCH ×2 (10:31→12:29)
[2018-10-12 10:32] LABS: Glucose,Whole Blood 133 mg/dL (75-99)
[2018-10-12 10:44] LABS: Allen Test Performed? Yes
[2018-10-12] MEDS: HYDROcodone/APAP 5-325MG 1 EACH TAB PO PRN ×3 (11:24→17:53)
[2018-10-12] MEDS ORDERED: KETOROLAC 30 MG/ML 1 ML VIAL IVP SCH (12:00)
[2018-10-12] MEDS: INSULIN REGULAR 100 UNIT in SODIUM CHLORIDE 0.9% 100 ML IV SCH (12:30)
[2018-10-12 12:49] LABS: Glucose,Whole Blood 143 mg/dL (75-99)
[2018-10-12 12:49] LABS: Glucose,Whole Blood 136 mg/dL (75-99)
[2018-10-12 13:41] VITALS: BMI 47.4
[2018-10-12] MEDS ORDERED: LISINOPRIL 10 MG TAB PO STA (14:07)
[2018-10-12 14:24] LABS: Glucose,Whole Blood 137 mg/dL (75-99)
--- NOTE | 2018-10-12 14:50 | P.VSCSTY ---
Greater Saphenous Vein Mapping This is bilateral lower extremity greater saphenous vein mapping. Date of service 10/10/2018 Vein quality and ultrasound appearance no intraluminal thrombus or wall changes are seen. Vein size groin right 7.7 x 6.3 groin left 10 x 7.2 High thigh right 5.9 x 5.0 high thigh left 4.0 x 3.9 Mid thigh right 4.6 x 4.1 mid thigh left 6.4 x 5.0 Above-knee right 4.7 x 4.0 above-knee left 6.1 x 4.6 Below knee right 3.6 x 3.1 below-knee left 6.6 x 3.5 Mid calf right 3.7 x 2.3 mid calf left 4.3 x 2.8 Ankle right 3.2 x 2.7 ankle left 2.8 x 1.9 Impression usable bilateral greater saphenous vein. Left ankle may be a bit small.
--- NOTE | 2018-10-12 15:26 | P.PN ---
Subjective Progress Note Date: 10/12/18 This is a 73-year-old patient of Dr. Olmstead, with past medical history of hype rtension, hyperlipidemia, morbid obesity, basal cell skin cancer with resection, significant family history of coronary artery disease, pernicious anemia. Patient has been having intermittent chest pain radiating to his back, associated with shortness of breath. Patient came into the ED for evaluation, twelve-lead EKG showed normal sinus rhythm with nonspecific T-wave abnormality in the lead 3. Chest CT was completed and showed no evidence of aortic dissection, and showed ectatic ascending aorta and upper descending thoracic aorta at 3.4 cm. Showed bibasilar atelectasis, and multifocal patchy inferior lingular opacity representing atelectasis. Patient was evaluated by cardiology, patient had elevation of troponin, and was ruled in of non-ST elevated myocardial infarction. He underwent coronary angiography which showed mid LAD lesion of 80% that also involves the 2 diagonal branches, have a calcified right coronary artery without significant disease and nondominant circumflex. Ec hocardiogram showed EF of 55-60%, mild aortic sclerosis with mild aortic stenosis, mild tricuspid regurgitation, no pulmonary hypertension, trace pulmonic regurgitation. On 10/11/2018 patient underwent single-vessel bypass with a CHE to LAD off-pump. Patient is seen in intensive care unit following his surgery. He is sedated, intubated on mechanical ventilator, with the SIMV mode of ventilation, with a rate of 12, tidal and 500, FiO2 100% and PEEP of 10. The blood gases stop showed pO2 of 191, pCO2 54, and pH of 7.29, O2 was dropped down to 80%, and patient was switched to assist control mode of ventilation with a rate of 20, subsequent blood gases in 1 hour showed improvement in the ve ntilation, with pCO2 down to 47, and pH of 7.34, and pO2 was 88%. O2 sat remains borderline, at 90%, repeat blood gases were obtained, after FiO2 was cut back to 60% from 80%, and blood gas showed a pO2 of 60%, pCO2 43, and pH of 7.36 and FiO2 was back up to 80%. Lactated Ringer Jacinto at a rate of 50, nitroglycerin drip is at 5 mics per kilo per minute, insulin drip, Diprivan and has been weaned off, and patient is currently on Precedex in view of patient's chronic pain. Awake and alert, following commands. His chest x-ray has been reviewed, showing postoperative changes with bilateral atelectasis, and small pleural effusions, and a tiny 5% or less apical pneumothorax on the left. Gladis ent has a 2 mediastinal and left pleural chest tube, is hemodynamically stable, there has been 440 mL of serosanguineous output from the left and 200 mL from the mediastinal chest tubes, urine output is adequate. Is in sinus mechanism, with controlled rate. On today's evaluation of 10/12/2018, the patient is extubated earlier this morning to a BiPAP at a pressure of 10/5 cm of water and FiO2 of 60%. Note that the patient was having difficulties with oxygenation throughout the night. I gradually wean down the FiO2. The necessary vent changes were done. Ultimately this morning the patient was given a spontaneous breathing trial with a pressure support of 5 and PEEP of 5 and ultimately was extubated to a BiPAP. He was having significant amount of chest wall pain secondary to the surgery and the surgical wound site and the patient was given Toradol and morphine for pain control. He is hemodynamically stable. On today's evaluation he is awake and alert. He is off the Precedex. His cardiac output is at 8.2 with an index of 3.0. Pulmonary artery pressures are 32/19. His CVP is at 14. He is awake and alert and is following commands and answering questions appropriately. Chest tubes are in place. Chest x-ray shows typical postsurgical changes. Sternum stable clean and intact and the patient is small better pleural effusion and atelectatic changes in lung bases bilaterally. Output from the chest tube was also noted. Objective - Vital Signs Vital signs: Vital Signs Temp 99.3 F 10/12/18 12:00 Pulse 84 10/12/18 15:00 Resp 26 H 10/12/18 15:00 BP 113/61 10/12/18 04:00 Pulse Ox 95 10/12/18 15:00 Intake & Output 10/11/18 10/12/18 10/12/18 18:59 06:59 18:59 Intake Total 696.884 5727.102 901.572 Output Total 1857 855 985 Balance -1122.201 583.102 -83.428 Weight 163.1 kg 163.1 kg Intake: IV 590 968 358.0 ACETAMINOPHEN IV (For NPO 100 100 ) 1,000 mg In Empty Bag 1 bag @ 400 mls/hr IVPB Q6HR MARCEL Rx#:[id number] Lactated Ringers 1,000 ml 300 600 190 @ 20 mls/hr IV .Q24H MARCEL Rx#:[id number] Nitroglycerin-D5w Pmx 50 30 60 8.0 mg In Dextrose/Water 1 250ml.bag @ 5 MCG/MIN 1.5 mls/hr IV .Q24H MARCEL Rx#: [id number] Pressure Bags 54 108 60 ceFAZolin 3 gm In Sodium 100 100 100 Chloride 0.9% 100 ml @ 100 mls/hr IVPB Q8HR MARCEL Rx#:[id number] Intake, IV Titration 144.799 470.102 443.572 Amount Clevidipine Butyrate 25 27.533 157.800 50.000 mg In Empty Bag 1 bag @ 1 MG/HR 2 mls/hr IV .Q24H MARCEL Rx#:[id number] Dexmedetomidine/0.9% NaCl 63.673 270.460 146.838 (Pmx) 400 mcg In Empty Bag 1 bag @ Titrate IV . Q0M MARCEL Rx#:[id number] Insulin Regular 100 unit 8.333 41.842 17.234 In Sodium Chloride 0.9% 100 ml @ Titrate IV .Q0M MARCEL Rx#:[id number] Magnesium Sulfate-D5w Pmx 200 1 gm In Dextrose/Water 1 100ml.bag @ 100 mls/hr IVPB Q1H MARCEL Rx#: [id number] Nitroglycerin-D5w Pmx 50 29.5 mg In Dextrose/Water 1 250ml.bag @ 5 MCG/MIN 1.5 mls/hr IV .Q24H MARCEL Rx#: [id number] Propofol 1,000 mg In 45.26 Empty Bag 1 bag @ Titrate IV .Q0M MARCEL Rx#: [id number] Oral 100 Output: Chest Tube Drainage 647 300 220 Left 440 90 170 Mediastinal 207 210 50 Urine 710 555 765 Estimated Blood Loss 500 Other: Voiding Method Indwelling Catheter Indwelling Catheter Indwelling Catheter ABP, PAP, CO, CI - Last Documented Arterial Blood Pressure 122/57 Pulmonary Artery Pressure 34/15 Cardiac Output 8.9 Cardiac Index 3.3 - Exam - Constitutional General appearance: Present: cooperative, morbidly obese, no acute distress - Respiratory Details: Lungs sounds essentially diminished throughout. Respirations are symmetrical and nonlabored with BiPAP support. Current BiPAP settings are as follows: 10/5, rate of 10, FiO2 55%. Oxygen saturations are 92% on current BiPAP settings. Mediastinal and left pleural chest tubes remain in place to low continuous wall suction -20 cm H2O. No air leak is present. Draining thin serosanguineous drainage. Left pleural chest tubes with 60 mL output in the last 8 hours, 550 mL output since surgery. Mediastinal chest tubes with 130 mL output in the last 8 hours, 430 mL output since surgery. - Cardiovascular Details: Regular rhythm and rate. S1 and S2 present, negative for S3, gallop or murmur. Sternum is stable. Bedside telemetry showing normal sinus rhythm heart rate 70. Trace edema to his bilateral lower extremities. Heart hugger is in place and he is demonstrating appropriate use. Right IJ Cordis and [place]-Nicolle in place. Current cardiac output 8.2, cardiac index 3.0, PA pressures 32/19, CVP 14 mmHg. Left radial arterial line in place and functioning. Knee-high MESSI hose and sequential compression devices in place to his bilateral lower extremities. - Gastrointestinal Gastrointestinal Comment(s): Abdomen is soft, nontender and nondistended. Morbidly obese. Hypoactive bowel sounds present in all 4 abdominal quadrants. No guarding or rigidity, no organomegaly. - Genitourinary Genitourinary Comment(s): Krueger catheter for accurate I&O. Draining clear rose urine. 360 mL output in the last 8 hours. - Integumentary Integumentary Comment(s): Skin is warm and dry. No clubbing or cyanosis is present. Midline sternal incision is clean, dry and approximated. No drainage or redness is present. Gauze dressing is clean, dry and intact. - Neurologic Neurologic: Present: CNII-XII intact - Musculoskeletal Musculoskeletal: Present: gait normal, generalized weakness, strength equal bilaterally - Psychiatric Psychiatric Comment(s): Rate of anxiousness Psychiatric: Present: A&O x's 3, appropriate affect, intact judgment & insight - Labs CBC & Chem 7: 10/12/18 05:10 10/12/18 05:10 Labs: Abnormal Lab Results - Last 24 Hours (Table) 10/11/18 10/11/18 10/11/18 Range/Units 15:00 16:15 16:35 WBC 11.1 H (3.8-10.6) k/uL RBC 4.02 L (4.30-5.90) m/uL Hgb 11.7 L (13.0-17.5) gm/dL Hct 35.4 L (39.0-53.0) % Plt Count 134 L (150-450) k/uL Neutrophils # 9.9 H (1.3-7.7) k/uL Lymphocytes # 0.5 L (1.0-4.8) k/uL ABG pO2 (83-108) mmHg ABG Total CO2 (19-24) mmol/L ABG O2 Saturation (94-97) % Chloride (98-107) mmol/L BUN (9-20) mg/dL Glucose (74-99) mg/dL POC Glucose (mg/dL) 117 H 134 H (75-99) mg/dL Calcium (8.4-10.2) mg/dL AST (17-59) U/L Total Protein (6.3-8.2) g/dL Albumin (3.5-5.0) g/dL 10/11/18 10/11/18 10/11/18 Range/Units 17:03 17:52 18:00 WBC (3.8-10.6) k/uL RBC (4.30-5.90) m/uL Hgb (13.0-17.5) gm/dL Hct (39.0-53.0) % Plt Count (150-450) k/uL Neutrophils # (1.3-7.7) k/uL Lymphocytes # (1.0-4.8) k/uL ABG pO2 60 L (83-108) mmHg ABG Total CO2 26 H (19-24) mmol/L ABG O2 Saturation 91.1 L (94-97) % Chloride (98-107) mmol/L BUN (9-20) mg/dL Glucose (74-99) mg/dL POC Glucose (mg/dL) 148 H 144 H (75-99) mg/dL Calcium (8.4-10.2) mg/dL AST (17-59) U/L Total Protein (6.3-8.2) g/dL Albumin (3.5-5.0) g/dL 10/11/18 10/11/18 10/11/18 Range/Units 19:08 20:00 20:00 WBC 11.2 H (3.8-10.6) k/uL RBC 3.93 L (4.30-5.90) m/uL Hgb 11.6 L (13.0-17.5) gm/dL Hct 34.5 L (39.0-53.0) % Plt Count 131 L (150-450) k/uL Neutrophils # 9.9 H (1.3-7.7) k/uL Lymphocytes # 0.6 L (1.0-4.8) k/uL ABG pO2 (83-108) mmHg ABG Total CO2 (19-24) mmol/L ABG O2 Saturation (94-97) % Chloride 109 H (98-107) mmol/L BUN (9-20) mg/dL Glucose 134 H (74-99) mg/dL POC Glucose (mg/dL) 144 H (75-99) mg/dL Calcium (8.4-10.2) mg/dL AST (17-59) U/L Total Protein (6.3-8.2) g/dL Albumin (3.5-5.0) g/dL 10/11/18 10/11/18 10/11/18 Range/Units 20:02 21:08 22:04 WBC (3.8-10.6) k/uL RBC (4.30-5.90) m/uL Hgb (13.0-17.5) gm/dL Hct (39.0-53.0) % Plt Count (150-450) k/uL Neutrophils # (1.3-7.7) k/uL Lymphocytes # (1.0-4.8) k/uL ABG pO2 (83-108) mmHg ABG Total CO2 (19-24) mmol/L ABG O2 Saturation (94-97) % Chloride (98-107) mmol/L BUN (9-20) mg/dL Glucose (74-99) mg/dL POC Glucose (mg/dL) 139 H 127 H 123 H (75-99) mg/dL Calcium (8.4-10.2) mg/dL AST (17-59) U/L Total Protein (6.3-8.2) g/dL Albumin (3.5-5.0) g/dL 10/11/18 10/11/18 10/12/18 Range/Units 23:00 23:35 00:07 WBC (3.8-10.6) k/uL RBC (4.30-5.90) m/uL Hgb (13.0-17.5) gm/dL Hct (39.0-53.0) % Plt Count (150-450) k/uL Neutrophils # (1.3-7.7) k/uL Lymphocytes # (1.0-4.8) k/uL ABG pO2 62 L (83-108) mmHg ABG Total CO2 (19-24) mmol/L ABG O2 Saturation 91.5 L (94-97) % Chloride (98-107) mmol/L BUN (9-20) mg/dL Glucose (74-99) mg/dL POC Glucose (mg/dL) 117 H 122 H (75-99) mg/dL Calcium (8.4-10.2) mg/dL AST (17-59) U/L Total Protein (6.3-8.2) g/dL Albumin (3.5-5.0) g/dL 10/12/18 10/12/18 10/12/18 Range/Units 01:07 02:07 03:07 WBC (3.8-10.6) k/uL RBC (4.30-5.90) m/uL Hgb (13.0-17.5) gm/dL Hct (39.0-53.0) % Plt Count (150-450) k/uL Neutrophils # (1.3-7.7) k/uL Lymphocytes # (1.0-4.8) k/uL ABG pO2 (83-108) mmHg ABG Total CO2 (19-24) mmol/L ABG O2 Saturation (94-97) % Chloride (98-107) mmol/L BUN (9-20) mg/dL Glucose (74-99) mg/dL POC Glucose (mg/dL) 122 H 135 H 131 H (75-99) mg/dL Calcium (8.4-10.2) mg/dL AST (17-59) U/L Total Protein (6.3-8.2) g/dL Albumin (3.5-5.0) g/dL 10/12/18 10/12/18 10/12/18 Range/Units 04:16 04:20 05:05 WBC (3.8-10.6) k/uL RBC (4.30-5.90) m/uL Hgb (13.0-17.5) gm/dL Hct (39.0-53.0) % Plt Count (150-450) k/uL Neutrophils # (1.3-7.7) k/uL Lymphocytes # (1.0-4.8) k/uL ABG pO2 71 L (83-108) mmHg ABG Total CO2 (19-24) mmol/L ABG O2 Saturation (94-97) % Chloride (98-107) mmol/L BUN (9-20) mg/dL Glucose (74-99) mg/dL POC Glucose (mg/dL) 113 H 119 H (75-99) mg/dL Calcium (8.4-10.2) mg/dL AST (17-59) U/L Total Protein (6.3-8.2) g/dL Albumin (3.5-5.0) g/dL 10/12/18 10/12/18 10/12/18 Range/Units 05:10 05:10 06:14 WBC 11.7 H (3.8-10.6) k/uL RBC 4.00 L (4.30-5.90) m/uL Hgb 11.8 L (13.0-17.5) gm/dL Hct 35.4 L (39.0-53.0) % Plt Count 131 L (150-450) k/uL Neutrophils # 10.2 H (1.3-7.7) k/uL Lymphocytes # 0.7 L (1.0-4.8) k/uL ABG pO2 (83-108) mmHg ABG Total CO2 (19-24) mmol/L ABG O2 Saturation (94-97) % Chloride 109 H (98-107) mmol/L BUN 23 H (9-20) mg/dL Glucose 118 H (74-99) mg/dL POC Glucose (mg/dL) 107 H (75-99) mg/dL Calcium 8.3 L (8.4-10.2) mg/dL AST 88 H (17-59) U/L Total Protein 5.4 L (6.3-8.2) g/dL Albumin 3.2 L (3.5-5.0) g/dL 10/12/18 10/12/18 10/12/18 Range/Units 07:09 08:19 08:35 WBC (3.8-10.6) k/uL RBC (4.30-5.90) m/uL Hgb (13.0-17.5) gm/dL Hct (39.0-53.0) % Plt Count (150-450) k/uL Neutrophils # (1.3-7.7) k/uL Lymphocytes # (1.0-4.8) k/uL ABG pO2 66 L (83-108) mmHg ABG Total CO2 (19-24) mmol/L ABG O2 Saturation 92.1 L (94-97) % Chloride (98-107) mmol/L BUN (9-20) mg/dL Glucose (74-99) mg/dL POC Glucose (mg/dL) 120 H 149 H (75-99) mg/dL Calcium (8.4-10.2) mg/dL AST (17-59) U/L Total Protein (6.3-8.2) g/dL Albumin (3.5-5.0) g/dL 10/12/18 10/12/18 10/12/18 Range/Units 10:30 11:33 12:47 WBC (3.8-10.6) k/uL RBC (4.30-5.90) m/uL Hgb (13.0-17.5) gm/dL Hct (39.0-53.0) % Plt Count (150-450) k/uL Neutrophils # (1.3-7.7) k/uL Lymphocytes # (1.0-4.8) k/uL ABG pO2 (83-108) mmHg ABG Total CO2 (19-24) mmol/L ABG O2 Saturation (94-97) % Chloride (98-107) mmol/L BUN (9-20) mg/dL Glucose (74-99) mg/dL POC Glucose (mg/dL) 133 H 143 H 136 H (75-99) mg/dL Calcium (8.4-10.2) mg/dL AST (17-59) U/L Total Protein (6.3-8.2) g/dL Albumin (3.5-5.0) g/dL 10/12/18 Range/Units 14:10 WBC (3.8-10.6) k/uL RBC (4.30-5.90) m/uL Hgb (13.0-17.5) gm/dL Hct (39.0-53.0) % Plt Count (150-450) k/uL Neutrophils # (1.3-7.7) k/uL Lymphocytes # (1.0-4.8) k/uL ABG pO2 (83-108) mmHg ABG Total CO2 (19-24) mmol/L ABG O2 Saturation (94-97) % Chloride (98-107) mmol/L BUN (9-20) mg/dL Glucose (74-99) mg/dL POC Glucose (mg/dL) 137 H (75-99) mg/dL Calcium (8.4-10.2) mg/dL AST (17-59) U/L Total Protein (6.3-8.2) g/dL Albumin (3.5-5.0) g/dL Microbiology - Last 24 Hours (Table) 10/10/18 19:43 Urine Culture - Final Urine,Clean Catch 10/10/18 14:00 Nasal Screen MRSA/MSSA - Final Nasal Swab Assessment and Plan Plan: 1 coronary artery disease with complex LAD lesion and the patient has undergone bypass surgery with 2 vessel bypass. The patient is postop day #1 2 thoracotomy and the patient was extubated earlier this morning to a BiPAP due to some postoperative atelectatic changes and ongoing difficulties oxygenation. Ultimately improved and the patient was extubated to BiPAP earlier this morning. He is calm and comfortable at this point in time. 3 chest wall pain, surgically nature, expected outcome of surgery 4 mild aortic stenosis 5 hypertension 6 hyperlipidemia 7 morbid obesity with BMI 47.4 8 spinal stenosis chronic back pain 9 history of alcoholism currently in remission 10 BPH 11 history of TIA 12 osteoarthritis Plan Patient is doing well. The patient was extubated. Chest x-ray was noted. Monitor the output from the chest tube. Hemodynamically stable. Incentive spirometer. I'll for pain control. Keep the patient ICU for now. Gradually wean off the BiPAP to a high flow nasal cannula if the patient is able to tolerate. We'll continue to follow.
[2018-10-12 15:38] LABS: Glucose,Whole Blood 118 mg/dL (75-99)
[2018-10-12 16:59] LABS: Glucose,Whole Blood 118 mg/dL (75-99)
[2018-10-12] MEDS: KETOROLAC 30 MG/ML 1 ML VIAL IVP SCH ×2 (17:01→23:48)
[2018-10-12 18:33] LABS: Glucose,Whole Blood 189 mg/dL (75-99)
[2018-10-12] MEDS: SENNOSIDES-DOCUSATE SODIUM 1 EACH TAB PO SCH (20:04)
[2018-10-12] MEDS: TAMSULOSIN 0.4 MG CAP.ER.24H PO SCH (20:05)
[2018-10-12 20:17] LABS: Glucose,Whole Blood 124 mg/dL (75-99)
[2018-10-12] MEDS ORDERED: METOPROLOL TARTRATE 25 MG TAB PO SCH (21:00)
[2018-10-12] MEDS ORDERED: HYDROmorphone 1 MG/ML 1 ML SYRINGE IVP PRN (21:22)
[2018-10-12 21:24] LABS: Glucose,Whole Blood 122 mg/dL (75-99)
[2018-10-12] MEDS ORDERED: hydrALAZINE HCL 20 MG/ML 1 ML VIAL IVP PRN (21:28)
[2018-10-12] MEDS ORDERED: METOPROLOL TARTRATE 25 MG TAB PO STA (21:29)
--- NOTE | 2018-10-12 21:47 | PN ---
PROGRESS NOTE DATE OF SERVICE: 10/12/2018 This 73-year-old gentleman who was admitted with acute bwh-AA-lfhaqsp-elevation myocardial infarction had cardiac catheterization, CAD, CABG. Patient is being closely monitored. He is extubated. No chest pain. No palpitations. Patient is still on insulin drip, sugars around 120. PHYSICAL EXAMINATION: Alert and oriented x3. Pulse is 86, blood pressure 113/61, respiration 23, temperature 98.5, pulse ox 96% on 8 L. HEENT: Conjunctivae normal. NECK: No jugular venous distention. CARDIOVASCULAR SYSTEM: S1, S2 muffled. RESPIRATORY SYSTEM: Breath sounds diminished at the bases. Scattered rhonchi. ABDOMEN: Soft. NERVOUS SYSTEM: No focal deficit. LABS: Accu-Cheks 189, 124. WBC 11.7, hemoglobin 11.8. ASSESSMENT: 1. Acute qmt-YB-quyzahl-elevation myocardial infarction, status post coronary artery bypass grafting with CHE to LAD for LAD stenosis. 2. Troponin elevated up to 0.056. 3. Ectatic aorta on the CT scan. 4. Gastroesophageal reflux disease. 5. History of cerebrovascular accident, transient ischemic attack. 6. Hyperlipidemia. 7. Hypertension. 8. History of degenerative joint disease. 9. History of transient ischemic attack. 10.History of pernicious anemia, on monthly injections. 11.Cholecystectomy. 12.History of bowel resection. 13.Obesity with body mass index of 46.2. RECOMMENDATIONS AND DISCUSSION: I recommend to continue current medications, continue with the monitoring, symptomatic treatment. Otherwise at this time I would recommend incentive spirometry. Continue insulin drip. Once the patient is p.o., the patient may be started on insulin coverage and continue to monitor. Otherwise, DVT prophylaxis. Continue the rest of the medications. Closely follow with Cardiology and Cardiothoracic Surgery. Further recommendations to follow. MMODL / IJN: [id number] /
[2018-10-12 22:12] LABS: Glucose,Whole Blood 131 mg/dL (75-99)
[2018-10-12 22:12] LABS: ABG Base Excess -1.4 mmol/L; ABG HCO3 24 mmol/L (21-25); ABG Oxygen Saturation 93.8 % (94-97); ABG PCO2 42 mmHg (35-45); ABG PH 7.37 (7.35-7.45); ABG PO2 71 mmHg (83-108); ABG TCO2 25 mmol/L (19-24); Allen Test Performed? Yes
[2018-10-12 23:04] LABS: Glucose,Whole Blood 137 mg/dL (75-99)
[2018-10-12 23:59] LABS: Glucose,Whole Blood 139 mg/dL (75-99)
[2018-10-13 01:03] LABS: Glucose,Whole Blood 162 mg/dL (75-99)
[2018-10-13 02:05] LABS: Glucose,Whole Blood 131 mg/dL (75-99)
[2018-10-13] MEDS: HYDROcodone/APAP 7.5-325MG 1 EACH TAB PO PRN ×5 (02:06→20:02)
[2018-10-13 03:18] LABS: Glucose,Whole Blood 135 mg/dL (75-99)
[2018-10-13] MEDS: ONDANSETRON 4 MG/2 ML VIAL IVP PRN ×2 (04:04→11:02)
[2018-10-13 04:23] LABS: Glucose,Whole Blood 138 mg/dL (75-99)
[2018-10-13 04:40] LABS: Basophils % (A) 0 %; Eosinophils # (A) 0.1 k/uL (0-0.7); Eosinophils % (A) 1 %; HCT 33.6 % (39.0-53.0); Lymphocytes # (A) 0.7 k/uL (1.0-4.8); Lymphocytes % (A) 6 %; MCH 29.5 pg (25.0-35.0); MCHC 32.9 g/dL (31.0-37.0); MCV 89.7 fL (80.0-100.0); Mean Platelet Volume 7.5; Monocytes # (A) 0.8 k/uL (0-1.0); Monocytes % (A) 6 %; Neutrophils # (A) 11.1 k/uL (1.3-7.7); Neutrophils % (A) 86 %; Platelet Count 121 k/uL (150-450); RBC 3.74 m/uL (4.30-5.90); RDW 14.5 % (11.5-15.5)
[2018-10-13 04:54] LABS: Calcium 8.3 mg/dL (8.4-10.2); Potassium 4.2 mmol/L (3.5-5.1); Total Bilirubin 1.7 mg/dL (0.2-1.3); Total Protein 5.4 g/dL (6.3-8.2)
[2018-10-13] MEDS: KETOROLAC 30 MG/ML 1 ML VIAL IVP SCH (05:30)
[2018-10-13] MEDS: PANTOPRAZOLE 40 MG TABLET PO SCH (05:31)
[2018-10-13] MEDS: HEPARIN SODIUM,PORCINE 5,000 UNIT/ML 1 ML VIAL SQ SCH ×3 (05:31→21:03)
[2018-10-13 06:45] LABS: Glucose,Whole Blood 134 mg/dL (75-99)
[2018-10-13] MEDS: INSULIN REGULAR 100 UNIT in SODIUM CHLORIDE 0.9% 100 ML IV SCH (07:26)
--- NOTE | 2018-10-13 07:47 | XR ---
EXAMINATION TYPE: XR chest 1V portable DATE OF EXAM: 10/13/2018 COMPARISON: 70 06/29/2017 HISTORY: Post cardiac surgery TECHNIQUE: Single frontal view of the chest is obtained. FINDINGS: Small layering left pleural effusion is stable with left basilar airspace disease. Plateli ke right midlung atelectasis and new right basilar platelike atelectasis or linear in orientation. Ca rdia mediastinal silhouette remains enlarged with [place]-Nicolle catheter, endotracheal tube, and enteric tube demonstrating interval removal. Postsurgical changes of the mediastinum are noted. No sizable pn eumothorax although the patient's chin obscures the left lung apex. IMPRESSION: 1. persistent bilateral consolidation and pleural effusion correlate for mild CHF versus pneumonia. P ostoperative atelectasis in the differential diagnosis.
[2018-10-13] MEDS: INSULN ASP PRT/INSULIN ASPART 100 UNIT/ML 10 ML VIAL SQ SCH (07:53)
[2018-10-13 07:54] LABS: Glucose,Whole Blood 148 mg/dL (75-99)
[2018-10-13] MEDS: ASPIRIN 325 MG TAB PO SCH (08:05)
[2018-10-13] MEDS: METOPROLOL TARTRATE 50 MG TAB PO SCH ×2 (08:05→21:03)
[2018-10-13] MEDS: CLOPIDOGREL 75 MG TAB PO SCH (08:05)
[2018-10-13] MEDS: CHOLECALCIFEROL 1,000 UNIT TAB PO SCH (08:05)
[2018-10-13] MEDS: CYANOCOBALAMIN 500 MCG TAB PO SCH (08:05)
[2018-10-13] MEDS: ATORVASTATIN 40 MG TAB PO SCH (08:05)
[2018-10-13] MEDS: MULTIVITAMINS, THERA 1 EACH TAB PO SCH (08:09)
--- NOTE | 2018-10-13 08:30 | P.PN ---
Subjective Progress Note Date: 10/13/18 Principal diagnosis: Coronary artery disease with LAD system complex disease, unstable angina, preserved left ventricular function with ejection fraction of 55-60%, mild aortic valve stenosis, new diagnosis of type 2 diabetes mellitus with hemoglobin A1c 7.1%. Previous medical history of hypertension, hyperlipidemia, morbid obesity, basal cell skin cancer with resection, venous insufficiency, spinal stenosis with chronic low back pain, history of EtOH in remission, gastroeso phageal reflux disease, prostate disorder, TIA with no residual effects, osteoarthritis, pernicious anemia and family history of premature coronary artery disease. POD #1 urgent all arterial double beating heart coronary artery bypass grafting using the left internal mammary artery sequentially in a [id number] fashion to the second diagonal coronary artery, then to the left anterior descending coronary artery in an end-to-side fashion. Closure of the sternum with a combination of cable and plating system from [employer]. Intraoperative transesophageal echocardiogram and epi-aortic scanning. Intraoperative graft flow measurements using the 27 Perry system. Postoperative acute blood loss anemia, an expected outcome due to hemodilution and his history of pernicious anemia. Patient's currently sitting up in a recliner in no acute distress. Does complain of back pain and sternal surgical pain but states it is slightly better than yesterday. Denies shortness of breath. Remains in sinus rhythm. Hemodynamically stable on no inotropes or pressors. Was a bit hypertensive last night, thought to be pain related, pain medication and antihypertensives were adjusted. Urine output remains adequate. Chest tubes remained in place. Patient is attempting incentive spirometry use and coughing but with poor effort. No other new concerns. Objective - Vital Signs Vital signs: Vital Signs Temp 98.3 F 10/13/18 04:00 Pulse 68 10/13/18 07:00 Resp 12 10/13/18 07:00 BP 135/57 10/13/18 02:30 Pulse Ox 97 10/13/18 07:00 Intake & Output 10/12/18 10/13/18 10/13/18 18:59 06:59 18:59 Intake Total 1514.822 900.535 25.392 Output Total 1155 950 100 Balance 359.822 -49.465 -74.608 Weight 163.1 kg 162.7 kg Intake: IV 550.0 276 23 Lactated Ringers 1,000 ml 270 240 20 @ 20 mls/hr IV .Q24H MARCEL Rx#:[id number] Nitroglycerin-D5w Pmx 50 8.0 mg In Dextrose/Water 1 250ml.bag @ 5 MCG/MIN 1.5 mls/hr IV .Q24H MARCEL Rx#: [id number] Pressure Bags 72 36 3 ceFAZolin 3 gm In Sodium 200 Chloride 0.9% 100 ml @ 100 mls/hr IVPB Q8HR MARCEL Rx#:[id number] Intake, IV Titration 464.822 84.535 2.392 Amount Clevidipine Butyrate 25 50.000 mg In Empty Bag 1 bag @ 1 MG/HR 2 mls/hr IV .Q24H MARCEL Rx#:[id number] Clevidipine Butyrate 25 34.367 mg In Empty Bag 1 bag @ 1 MG/HR 2 mls/hr IV .Q24H MARCEL Rx#:[id number] Dexmedetomidine/0.9% NaCl 146.838 (Pmx) 400 mcg In Empty Bag 1 bag @ Titrate IV . Q0M MARCEL Rx#:[id number] Insulin Regular 100 unit 38.484 50.168 2.392 In Sodium Chloride 0.9% 100 ml @ Titrate IV .Q0M MARCEL Rx#:[id number] Magnesium Sulfate-D5w Pmx 200 1 gm In Dextrose/Water 1 100ml.bag @ 100 mls/hr IVPB Q1H MARCEL Rx#: [id number] Nitroglycerin-D5w Pmx 50 29.5 mg In Dextrose/Water 1 250ml.bag @ 5 MCG/MIN 1.5 mls/hr IV .Q24H MARCEL Rx#: [id number] Oral 500 540 Output: Chest Tube Drainage 240 250 50 Left 180 200 30 Mediastinal 60 50 20 Urine 915 700 50 Other: Voiding Method Indwelling Catheter Indwelling Catheter ABP, PAP, CO, CI - Last Documented Arterial Blood Pressure 107/52 Pulmonary Artery Pressure 34/15 Cardiac Output 10.6 Cardiac Index 3.9 - Constitutional General appearance: Present: cooperative, morbidly obese, no acute distress - Respiratory Details: Lungs sounds diminished bilaterally. Respirations even, nonlabored. Currently on 12 L high flow nasal cannula with oxygen saturation 98%. Only able to achieve 500 mL on his incentive spirometry. Weak cough. Mediastinal chest tube to continuous wall suction, 50 mL serosanguineous drainage overnight, 120 mL in the last 24 hours. Left pleural chest tube to continuous wall suction, 250 mL serosanguineous drainage overnight, 470 mL in the last 24 hours. No air leaks present. - Cardiovascular Details: S1, S2 present. Regular rate and rhythm, sinus rhythm on telemetry. Sternum stable. Palpable peripheral pulses bilaterally. Bilateral lower extremity edema present. No calf pain or tenderness noted. Right internal jugular Cordis, left radial arterial line present. Heart hugger in place with patient demonstrating appropriate use. Antiembolism stockings, SCDs present. - Gastrointestinal Gastrointestinal Comment(s): Abdomen soft, nontender, nondistended, round and obese. Active bowel sounds present 4 quadrants. Tolerating diet. Positive flatus, negative bowel movement. - Genitourinary Genitourinary Comment(s): Fitch present draining clear, yellow urine. Output 45-50 mL per hour overnight, 500 mL diuresis after IV Lasix given yesterday. - Integumentary Integumentary Comment(s): Skin is warm and dry with evidence of good perfusion. Anterior chest incision well approximated and covered with dry intact dressing. - Neurologic Neurologic: Present: CNII-XII intact - Musculoskeletal Musculoskeletal: Present: generalized weakness, strength equal bilaterally - Psychiatric Psychiatric: Present: A&O x's 3, appropriate affect, intact judgment & insight - Allied health notes Allied health notes reviewed: nursing - Labs CBC & Chem 7: 10/13/18 04:15 10/13/18 04:15 Labs: Abnormal Lab Results - Last 24 Hours (Table) 10/10/18 10/12/18 10/12/18 Range/Units 22:24 08:19 08:35 WBC (3.8-10.6) k/uL RBC (4.30-5.90) m/uL Hgb (13.0-17.5) gm/dL Hct (39.0-53.0) % Plt Count (150-450) k/uL Neutrophils # (1.3-7.7) k/uL Lymphocytes # (1.0-4.8) k/uL ABG pO2 66 L (83-108) mmHg ABG Total CO2 (19-24) mmol/L ABG O2 Saturation 92.1 L (94-97) % BUN (9-20) mg/dL Glucose (74-99) mg/dL POC Glucose (mg/dL) 149 H (75-99) mg/dL Calcium (8.4-10.2) mg/dL Total Bilirubin (0.2-1.3) mg/dL AST (17-59) U/L Total Protein (6.3-8.2) g/dL Albumin (3.5-5.0) g/dL Crossmatch See Detail 10/12/18 10/12/18 10/12/18 Range/Units 10:30 11:33 12:47 WBC (3.8-10.6) k/uL RBC (4.30-5.90) m/uL Hgb (13.0-17.5) gm/dL Hct (39.0-53.0) % Plt Count (150-450) k/uL Neutrophils # (1.3-7.7) k/uL Lymphocytes # (1.0-4.8) k/uL ABG pO2 (83-108) mmHg ABG Total CO2 (19-24) mmol/L ABG O2 Saturation (94-97) % BUN (9-20) mg/dL Glucose (74-99) mg/dL POC Glucose (mg/dL) 133 H 143 H 136 H (75-99) mg/dL Calcium (8.4-10.2) mg/dL Total Bilirubin (0.2-1.3) mg/dL AST (17-59) U/L Total Protein (6.3-8.2) g/dL Albumin (3.5-5.0) g/dL Crossmatch 10/12/18 10/12/18 10/12/18 Range/Units 14:10 15:36 16:58 WBC (3.8-10.6) k/uL RBC (4.30-5.90) m/uL Hgb (13.0-17.5) gm/dL Hct (39.0-53.0) % Plt Count (150-450) k/uL Neutrophils # (1.3-7.7) k/uL Lymphocytes # (1.0-4.8) k/uL ABG pO2 (83-108) mmHg ABG Total CO2 (19-24) mmol/L ABG O2 Saturation (94-97) % BUN (9-20) mg/dL Glucose (74-99) mg/dL POC Glucose (mg/dL) 137 H 118 H 118 H (75-99) mg/dL Calcium (8.4-10.2) mg/dL Total Bilirubin (0.2-1.3) mg/dL AST (17-59) U/L Total Protein (6.3-8.2) g/dL Albumin (3.5-5.0) g/dL Crossmatch 10/12/18 10/12/18 10/12/18 Range/Units 18:31 20:13 21:19 WBC (3.8-10.6) k/uL RBC (4.30-5.90) m/uL Hgb (13.0-17.5) gm/dL Hct (39.0-53.0) % Plt Count (150-450) k/uL Neutrophils # (1.3-7.7) k/uL Lymphocytes # (1.0-4.8) k/uL ABG pO2 (83-108) mmHg ABG Total CO2 (19-24) mmol/L ABG O2 Saturation (94-97) % BUN (9-20) mg/dL Glucose (74-99) mg/dL POC Glucose (mg/dL) 189 H 124 H 122 H (75-99) mg/dL Calcium (8.4-10.2) mg/dL Total Bilirubin (0.2-1.3) mg/dL AST (17-59) U/L Total Protein (6.3-8.2) g/dL Albumin (3.5-5.0) g/dL Crossmatch 10/12/18 10/12/18 10/12/18 Range/Units 22:10 22:11 23:01 WBC (3.8-10.6) k/uL RBC (4.30-5.90) m/uL Hgb (13.0-17.5) gm/dL Hct (39.0-53.0) % Plt Count (150-450) k/uL Neutrophils # (1.3-7.7) k/uL Lymphocytes # (1.0-4.8) k/uL ABG pO2 71 L (83-108) mmHg ABG Total CO2 25 H (19-24) mmol/L ABG O2 Saturation 93.8 L (94-97) % BUN (9-20) mg/dL Glucose (74-99) mg/dL POC Glucose (mg/dL) 131 H 137 H (75-99) mg/dL Calcium (8.4-10.2) mg/dL Total Bilirubin (0.2-1.3) mg/dL AST (17-59) U/L Total Protein (6.3-8.2) g/dL Albumin (3.5-5.0) g/dL Crossmatch 10/12/18 10/13/18 10/13/18 Range/Units 23:58 01:01 02:04 WBC (3.8-10.6) k/uL RBC (4.30-5.90) m/uL Hgb (13.0-17.5) gm/dL Hct (39.0-53.0) % Plt Count (150-450) k/uL Neutrophils # (1.3-7.7) k/uL Lymphocytes # (1.0-4.8) k/uL ABG pO2 (83-108) mmHg ABG Total CO2 (19-24) mmol/L ABG O2 Saturation (94-97) % BUN (9-20) mg/dL Glucose (74-99) mg/dL POC Glucose (mg/dL) 139 H 162 H 131 H (75-99) mg/dL Calcium (8.4-10.2) mg/dL Total Bilirubin (0.2-1.3) mg/dL AST (17-59) U/L Total Protein (6.3-8.2) g/dL Albumin (3.5-5.0) g/dL Crossmatch 10/13/18 10/13/18 10/13/18 Range/Units 03:17 04:15 04:15 WBC 13.0 H (3.8-10.6) k/uL RBC 3.74 L (4.30-5.90) m/uL Hgb 11.0 L (13.0-17.5) gm/dL Hct 33.6 L (39.0-53.0) % Plt Count 121 L (150-450) k/uL Neutrophils # 11.1 H (1.3-7.7) k/uL Lymphocytes # 0.7 L (1.0-4.8) k/uL ABG pO2 (83-108) mmHg ABG Total CO2 (19-24) mmol/L ABG O2 Saturation (94-97) % BUN 28 H (9-20) mg/dL Glucose 134 H (74-99) mg/dL POC Glucose (mg/dL) 135 H (75-99) mg/dL Calcium 8.3 L (8.4-10.2) mg/dL Total Bilirubin 1.7 H (0.2-1.3) mg/dL AST 150 H (17-59) U/L Total Protein 5.4 L (6.3-8.2) g/dL Albumin 3.0 L (3.5-5.0) g/dL Crossmatch 10/13/18 10/13/18 10/13/18 Range/Units 04:22 06:43 07:52 WBC (3.8-10.6) k/uL RBC (4.30-5.90) m/uL Hgb (13.0-17.5) gm/dL Hct (39.0-53.0) % Plt Count (150-450) k/uL Neutrophils # (1.3-7.7) k/uL Lymphocytes # (1.0-4.8) k/uL ABG pO2 (83-108) mmHg ABG Total CO2 (19-24) mmol/L ABG O2 Saturation (94-97) % BUN (9-20) mg/dL Glucose (74-99) mg/dL POC Glucose (mg/dL) 138 H 134 H 148 H (75-99) mg/dL Calcium (8.4-10.2) mg/dL Total Bilirubin (0.2-1.3) mg/dL AST (17-59) U/L Total Protein (6.3-8.2) g/dL Albumin (3.5-5.0) g/dL Crossmatch - Imaging and Cardiology Chest x-ray: image reviewed Assessment and Plan Assessment: 1. Coronary artery disease with LAD system complex disease, status post 2 vessel off-pump CABG 2. Unstable angina 3. Preserved left ventricular function, EF 55-60% 4. Mild aortic valve stenosis 5. New diagnosis type 2 diabetes mellitus with hemoglobin A1c 7.1% 6. Hypertension 7. Hyperlipidemia 8. Morbid obesity 9. TIA in the past, no residual 10. History of basal cell skin cancer greater than 5 years ago with removal 11. Venous insufficiency 12. Spinal stenosis with chronic low back pain 13. History of EtOH abuse, currently in remission for 30 years 14. GERD 15. Prostate disorder 16. Osteoarthritis 17. Pernicious anemia 18. Significant family history of coronary artery disease, 1 brother with premature coronary artery disease 19. Postoperative acute blood loss anemia, expected Plan: 1. Continue to maximize medical therapy with aspirin, statin, and beta car. Will increase beta car therapy as tolerated. Lisinopril added yesterday, will increase to home dose. 2. Wean oxygen as tolerated, Bipap management by pulmonary medicine. 3. Encourage incentive spirometry use 10 times every hour while awake. 4. Increase activity, ambulate as tolerated. PT/OT/cardiac rehab following. 5. Will monitor daily labs and x-rays. Electrolyte replacement per protocol. No transfusion. 6. Pain control with current medication regimen. 7. Insulin management per primary care service. 8. GI/DVT prophylaxis. 9. Will discontinue mediastinal chest tube. Will keep left pleural chest tube for another 24 hours. 10. Discontinue fitch catheter. Bladder scan every 6 hours, may straight cath for >300 mL residual. Continue Flomax. 11. Diabetic teaching for new diagnosis of T2DM. 12. More recommendations to follow based on patient's clinical course. Time with Patient: Greater than 30
[2018-10-13] MEDS: IPRATROPIUM-ALBUTEROL 3 ML NEB INHALATION SCH ×4 (08:49→20:58)
--- NOTE | 2018-10-13 09:16 | PN ---
PROGRESS NOTE Mr. Pimentel is a 73-year-old male who presented with symptoms of angina pectoris, underwent cardiac catheterization and subsequent coronary artery bypass grafting. He is awake, alert, sitting up in the chair complaining of chest wall tenderness. Denies any dizziness. No palpitation. He is in sinus mechanism. He had episode of hypertension. Hemodynamically otherwise he is stable. His urine output is stable. He continues to be on aspirin once a day, Lipitor 40 mg daily, Plavix 75 mg daily, lisinopril 10 mg daily, metoprolol tartrate 50 mg twice a day. PHYSICAL EXAMINATION: Blood pressure 107/50 with a heart rate in the 60s. Lungs with mild decrease in breath sounds. No wheezes. HEART: Regular rate and rhythm. S1, S2. No rub appreciated. ABDOMEN: Soft, obese nontender. EXTREMITIES: No edema. LAB DATA: Lab data revealed BUN and creatinine 28 and 1.1. Potassium 4.2. Hemoglobin of 11. IMPRESSION: 1. Status post coronary artery bypass grafting, stable. 2. Hypertension. 3. Hyperlipidemia. 4. Obesity. RECOMMENDATION: We will continue present therapy. Continue incentive spirometry. Increase the level of activity and depending on his progress further recommendations will be made. MMODL / IJN: [id number] /
[2018-10-13] MEDS ORDERED: FUROSEMIDE 10 MG/ML 2 ML VIAL IV ONE (10:37)
[2018-10-13 12:28] LABS: Glucose,Whole Blood 140 mg/dL (75-99)
[2018-10-13] MEDS: INSULIN ASPART (NovoLOG) 100 UNIT/ML VIAL SQ SCH ×4 (12:33→21:02)
[2018-10-13] MEDS ORDERED: LISINOPRIL 10 MG TAB PO SCH (12:55)
--- NOTE | 2018-10-13 13:17 | P.PN ---
Subjective Progress Note Date: 10/13/18 This is a 73-year-old patient of Dr. Olmstead, with past medical history of hype rtension, hyperlipidemia, morbid obesity, basal cell skin cancer with resection, significant family history of coronary artery disease, pernicious anemia. Patient has been having intermittent chest pain radiating to his back, associated with shortness of breath. Patient came into the ED for evaluation, twelve-lead EKG showed normal sinus rhythm with nonspecific T-wave abnormality in the lead 3. Chest CT was completed and showed no evidence of aortic dissection, and showed ectatic ascending aorta and upper descending thoracic aorta at 3.4 cm. Showed bibasilar atelectasis, and multifocal patchy inferior lingular opacity representing atelectasis. Patient was evaluated by cardiology, patient had elevation of troponin, and was ruled in of non-ST elevated myocardial infarction. He underwent coronary angiography which showed mid LAD lesion of 80% that also involves the 2 diagonal branches, have a calcified right coronary artery without significant disease and nondominant circumflex. Ec hocardiogram showed EF of 55-60%, mild aortic sclerosis with mild aortic stenosis, mild tricuspid regurgitation, no pulmonary hypertension, trace pulmonic regurgitation. On 10/11/2018 patient underwent single-vessel bypass with a CHE to LAD off-pump. Patient is seen in intensive care unit following his surgery. He is sedated, intubated on mechanical ventilator, with the SIMV mode of ventilation, with a rate of 12, tidal and 500, FiO2 100% and PEEP of 10. The blood gases stop showed pO2 of 191, pCO2 54, and pH of 7.29, O2 was dropped down to 80%, and patient was switched to assist control mode of ventilation with a rate of 20, subsequent blood gases in 1 hour showed improvement in the ve ntilation, with pCO2 down to 47, and pH of 7.34, and pO2 was 88%. O2 sat remains borderline, at 90%, repeat blood gases were obtained, after FiO2 was cut back to 60% from 80%, and blood gas showed a pO2 of 60%, pCO2 43, and pH of 7.36 and FiO2 was back up to 80%. Lactated Ringer Jacinto at a rate of 50, nitroglycerin drip is at 5 mics per kilo per minute, insulin drip, Diprivan and has been weaned off, and patient is currently on Precedex in view of patient's chronic pain. Awake and alert, following commands. His chest x-ray has been reviewed, showing postoperative changes with bilateral atelectasis, and small pleural effusions, and a tiny 5% or less apical pneumothorax on the left. Gladis ent has a 2 mediastinal and left pleural chest tube, is hemodynamically stable, there has been 440 mL of serosanguineous output from the left and 200 mL from the mediastinal chest tubes, urine output is adequate. Is in sinus mechanism, with controlled rate. On today's evaluation of 10/12/2018, the patient is extubated earlier this morning to a BiPAP at a pressure of 10/5 cm of water and FiO2 of 60%. Note that the patient was having difficulties with oxygenation throughout the night. I gradually wean down the FiO2. The necessary vent changes were done. Ultimately this morning the patient was given a spontaneous breathing trial with a pressure support of 5 and PEEP of 5 and ultimately was extubated to a BiPAP. He was having significant amount of chest wall pain secondary to the surgery and the surgical wound site and the patient was given Toradol and morphine for pain control. He is hemodynamically stable. On today's evaluation he is awake and alert. He is off the Precedex. His cardiac output is at 8.2 with an index of 3.0. Pulmonary artery pressures are 32/19. His CVP is at 14. He is awake and alert and is following commands and answering questions appropriately. Chest tubes are in place. Chest x-ray shows typical postsurgical changes. Sternum stable clean and intact and the patient is small better pleural effusion and atelectatic changes in lung bases bilaterally. Output from the chest tube was also noted. On 10/13/2018 I'm seeing this patient for a follow-up. The patient is off the BiPAP. His postop day #2. Doing well. He is on high flow oxygen 6 L per minute nasal cannula. No chest pain. No cough sputum production or chest tightness or wheezing. His chest wall pain is under good control. Sternum stable clean and intact. Output from the mid descending tube is minimal and this will be discontinued. Output from the pleural tube is still high and this will be kept in place. Today's chest x-ray was noted. Cromwell-Nicolle catheter removed. No other complaints. No altered mentation. No cardiac arrhythmias pain no fever or chills. He is using incentive spirometer. The patient's renal function is within normal limits. The patient's white cell count of 13.0. Objective - Vital Signs Vital signs: Vital Signs Temp 98.2 F 10/13/18 12:00 Pulse 78 10/13/18 13:00 Resp 13 10/13/18 13:00 BP 135/57 10/13/18 02:30 Pulse Ox 97 10/13/18 13:00 Intake & Output 10/12/18 10/13/18 10/13/18 18:59 06:59 18:59 Intake Total 1514.822 900.535 615.392 Output Total 1155 950 205 Balance 359.822 -49.465 410.392 Weight 163.1 kg 162.7 kg Intake: IV 550.0 276 133 Lactated Ringers 1,000 ml 270 240 100 @ 20 mls/hr IV .Q24H [facility] Rx#:[id number] Nitroglycerin-D5w Pmx 50 8.0 mg In Dextrose/Water 1 250ml.bag @ 5 MCG/MIN 1.5 mls/hr IV .Q24H [facility] Rx#: [id number] Pressure Bags 72 36 33 ceFAZolin 3 gm In Sodium 200 Chloride 0.9% 100 ml @ 100 mls/hr IVPB Q8HR [facility] Rx#:[id number] Intake, IV Titration 464.822 84.535 2.392 Amount Clevidipine Butyrate 25 50.000 mg In Empty Bag 1 bag @ 1 MG/HR 2 mls/hr IV .Q24H [facility] Rx#:[id number] Clevidipine Butyrate 25 34.367 mg In Empty Bag 1 bag @ 1 MG/HR 2 mls/hr IV .Q24H [facility] Rx#:[id number] Dexmedetomidine/0.9% NaCl 146.838 (Pmx) 400 mcg In Empty Bag 1 bag @ Titrate IV . Q0M [facility] Rx#:[id number] Insulin Regular 100 unit 38.484 50.168 2.392 In Sodium Chloride 0.9% 100 ml @ Titrate IV .Q0M [facility] Rx#:[id number] Magnesium Sulfate-D5w Pmx 200 1 gm In Dextrose/Water 1 100ml.bag @ 100 mls/hr IVPB Q1H [facility] Rx#: [id number] Nitroglycerin-D5w Pmx 50 29.5 mg In Dextrose/Water 1 250ml.bag @ 5 MCG/MIN 1.5 mls/hr IV .Q24H [facility] Rx#: [id number] Oral 500 540 480 Output: Chest Tube Drainage 240 250 60 Left 180 200 40 Mediastinal 60 50 20 Urine 915 700 145 Other: Voiding Method Indwelling Catheter Indwelling Catheter Indwelling Catheter ABP, PAP, CO, CI - Last Documented Arterial Blood Pressure 153/70 Pulmonary Artery Pressure 34/15 Cardiac Output 10.6 Cardiac Index 3.9 - Exam - Constitutional General appearance: Present: cooperative, morbidly obese, no acute distress - Respiratory Details: Lungs sounds diminished bilaterally. Respirations even, nonlabored. Currently on 12 L high flow nasal cannula with oxygen saturation 98%. Only able to achieve 500 mL on his incentive spirometry. Weak cough. Mediastinal chest tube to continuous wall suction, 50 mL serosanguineous drainage overnight, 120 mL in the last 24 hours. Left pleural chest tube to continuous wall suction, 250 mL serosanguineous drainage overnight, 470 mL in the last 24 hours. No air leaks present. - Cardiovascular Details: S1, S2 present. Regular rate and rhythm, sinus rhythm on telemetry. Sternum stable. Palpable peripheral pulses bilaterally. Bilateral lower extremity edema present. No calf pain or tenderness noted. Right internal jugular Cordis, left radial arterial line present. Heart hugger in place with patient demonstrating appropriate use. Antiembolism stockings, SCDs present. - Gastrointestinal Gastrointestinal Comment(s): Abdomen soft, nontender, nondistended, round and obese. Active bowel sounds present 4 quadrants. Tolerating diet. Positive flatus, negative bowel movement. - Genitourinary Genitourinary Comment(s): Krueger present draining clear, yellow urine. Output 45-50 mL per hour overnight, 500 mL diuresis after IV Lasix given yesterday. - Integumentary Integumentary Comment(s): Skin is warm and dry with evidence of good perfusion. Anterior chest incision well approximated and covered with dry intact dressing. - Neurologic Neurologic: Present: CNII-XII intact - Musculoskeletal Musculoskeletal: Present: generalized weakness, strength equal bilaterally - Psychiatric Psychiatric: Present: A&O x's 3, appropriate affect, intact judgment & insight - Labs CBC & Chem 7: 10/13/18 04:15 10/13/18 04:15 Labs: Abnormal Lab Results - Last 24 Hours (Table) 10/10/18 10/12/18 10/12/18 Range/Units 22:24 14:10 15:36 WBC (3.8-10.6) k/uL RBC (4.30-5.90) m/uL Hgb (13.0-17.5) gm/dL Hct (39.0-53.0) % Plt Count (150-450) k/uL Neutrophils # (1.3-7.7) k/uL Lymphocytes # (1.0-4.8) k/uL ABG pO2 (83-108) mmHg ABG Total CO2 (19-24) mmol/L ABG O2 Saturation (94-97) % BUN (9-20) mg/dL Glucose (74-99) mg/dL POC Glucose (mg/dL) 137 H 118 H (75-99) mg/dL Calcium (8.4-10.2) mg/dL Total Bilirubin (0.2-1.3) mg/dL AST (17-59) U/L Total Protein (6.3-8.2) g/dL Albumin (3.5-5.0) g/dL Crossmatch See Detail 10/12/18 10/12/18 10/12/18 Range/Units 16:58 18:31 20:13 WBC (3.8-10.6) k/uL RBC (4.30-5.90) m/uL Hgb (13.0-17.5) gm/dL Hct (39.0-53.0) % Plt Count (150-450) k/uL Neutrophils # (1.3-7.7) k/uL Lymphocytes # (1.0-4.8) k/uL ABG pO2 (83-108) mmHg ABG Total CO2 (19-24) mmol/L ABG O2 Saturation (94-97) % BUN (9-20) mg/dL Glucose (74-99) mg/dL POC Glucose (mg/dL) 118 H 189 H 124 H (75-99) mg/dL Calcium (8.4-10.2) mg/dL Total Bilirubin (0.2-1.3) mg/dL AST (17-59) U/L Total Protein (6.3-8.2) g/dL Albumin (3.5-5.0) g/dL Crossmatch 10/12/18 10/12/18 10/12/18 Range/Units 21:19 22:10 22:11 WBC (3.8-10.6) k/uL RBC (4.30-5.90) m/uL Hgb (13.0-17.5) gm/dL Hct (39.0-53.0) % Plt Count (150-450) k/uL Neutrophils # (1.3-7.7) k/uL Lymphocytes # (1.0-4.8) k/uL ABG pO2 71 L (83-108) mmHg ABG Total CO2 25 H (19-24) mmol/L ABG O2 Saturation 93.8 L (94-97) % BUN (9-20) mg/dL Glucose (74-99) mg/dL POC Glucose (mg/dL) 122 H 131 H (75-99) mg/dL Calcium (8.4-10.2) mg/dL Total Bilirubin (0.2-1.3) mg/dL AST (17-59) U/L Total Protein (6.3-8.2) g/dL Albumin (3.5-5.0) g/dL Crossmatch 10/12/18 10/12/18 10/13/18 Range/Units 23:01 23:58 01:01 WBC (3.8-10.6) k/uL RBC (4.30-5.90) m/uL Hgb (13.0-17.5) gm/dL Hct (39.0-53.0) % Plt Count (150-450) k/uL Neutrophils # (1.3-7.7) k/uL Lymphocytes # (1.0-4.8) k/uL ABG pO2 (83-108) mmHg ABG Total CO2 (19-24) mmol/L ABG O2 Saturation (94-97) % BUN (9-20) mg/dL Glucose (74-99) mg/dL POC Glucose (mg/dL) 137 H 139 H 162 H (75-99) mg/dL Calcium (8.4-10.2) mg/dL Total Bilirubin (0.2-1.3) mg/dL AST (17-59) U/L Total Protein (6.3-8.2) g/dL Albumin (3.5-5.0) g/dL Crossmatch 10/13/18 10/13/18 10/13/18 Range/Units 02:04 03:17 04:15 WBC 13.0 H (3.8-10.6) k/uL RBC 3.74 L (4.30-5.90) m/uL Hgb 11.0 L (13.0-17.5) gm/dL Hct 33.6 L (39.0-53.0) % Plt Count 121 L (150-450) k/uL Neutrophils # 11.1 H (1.3-7.7) k/uL Lymphocytes # 0.7 L (1.0-4.8) k/uL ABG pO2 (83-108) mmHg ABG Total CO2 (19-24) mmol/L ABG O2 Saturation (94-97) % BUN (9-20) mg/dL Glucose (74-99) mg/dL POC Glucose (mg/dL) 131 H 135 H (75-99) mg/dL Calcium (8.4-10.2) mg/dL Total Bilirubin (0.2-1.3) mg/dL AST (17-59) U/L Total Protein (6.3-8.2) g/dL Albumin (3.5-5.0) g/dL Crossmatch 10/13/18 10/13/18 10/13/18 Range/Units 04:15 04:22 06:43 WBC (3.8-10.6) k/uL RBC (4.30-5.90) m/uL Hgb (13.0-17.5) gm/dL Hct (39.0-53.0) % Plt Count (150-450) k/uL Neutrophils # (1.3-7.7) k/uL Lymphocytes # (1.0-4.8) k/uL ABG pO2 (83-108) mmHg ABG Total CO2 (19-24) mmol/L ABG O2 Saturation (94-97) % BUN 28 H (9-20) mg/dL Glucose 134 H (74-99) mg/dL POC Glucose (mg/dL) 138 H 134 H (75-99) mg/dL Calcium 8.3 L (8.4-10.2) mg/dL Total Bilirubin 1.7 H (0.2-1.3) mg/dL AST 150 H (17-59) U/L Total Protein 5.4 L (6.3-8.2) g/dL Albumin 3.0 L (3.5-5.0) g/dL Crossmatch 10/13/18 10/13/18 Range/Units 07:52 12:26 WBC (3.8-10.6) k/uL RBC (4.30-5.90) m/uL Hgb (13.0-17.5) gm/dL Hct (39.0-53.0) % Plt Count (150-450) k/uL Neutrophils # (1.3-7.7) k/uL Lymphocytes # (1.0-4.8) k/uL ABG pO2 (83-108) mmHg ABG Total CO2 (19-24) mmol/L ABG O2 Saturation (94-97) % BUN (9-20) mg/dL Glucose (74-99) mg/dL POC Glucose (mg/dL) 148 H 140 H (75-99) mg/dL Calcium (8.4-10.2) mg/dL Total Bilirubin (0.2-1.3) mg/dL AST (17-59) U/L Total Protein (6.3-8.2) g/dL Albumin (3.5-5.0) g/dL Crossmatch Assessment and Plan Plan: 1 coronary artery disease with complex LAD lesion and the patient has undergone bypass surgery with 2 vessel bypass. The patient is postop day #2 2 thoracotomy and the patient was extubated earlier this morning to a BiPAP due to some postoperative atelectatic changes and ongoing difficulties oxygenation. Ultimately improved and the patient was extubated to BiPAP and later on he was placed on oxygen by nasal cannula which is currently a 62/m. He is doing well. He is using incentive spirometer. Chest x-ray shows postoperative changes. Chest tubes are still in place. 3 chest wall pain, surgically nature, expected outcome of surgery 4 mild aortic stenosis 5 hypertension 6 hyperlipidemia 7 morbid obesity with BMI 47.4 8 spinal stenosis chronic back pain 9 history of alcoholism currently in remission 10 BPH 11 history of TIA 12 osteoarthritis Plan Patient is doing well. The patient was extubated. We'll move the mediastinal chest tube and keep the pleural chest tube in place. Continue aspirin. Continue beta blockers and statins. Lisinopril will be added for better blood pressure control. Continue using incentive spirometer. Ambulate in the hallway. Continue to follow.
[2018-10-13 17:17] LABS: Glucose,Whole Blood 138 mg/dL (75-99)
[2018-10-13] MEDS: DEXTROSE 5% IN WATER 100 ML with AMIODARONE 150 MG IV PRN ×4 (17:37→20:47)
[2018-10-13 17:46] LABS: Magnesium 2.4 mg/dL (1.6-2.3); Potassium 4.7 mmol/L (3.5-5.1)
--- NOTE | 2018-10-13 18:55 | PN ---
PROGRESS NOTE DATE OF SERVICE: 10/13/2018 This 73-year-old gentleman who was admitted after CAD, CABG is closely monitored at this time. The patient is started on 3 shot insulin protocol. Sugars have been 134 and 141 and 140. The creatinine is normal. No chest pain. No palpitations. No fever. EXAM: Alert and oriented x3. The pulse is 70, blood pressure 125/56, respiration 18, temperature normal, pulse ox 98% on 10 L. HEENT: Conjunctivae normal. NECK: No jugular venous distention. CARDIOVASCULAR: S1, S2 muffled. Status post surgery. RESPIRATIONS: Breath sounds diminished in the bases. Scattered rhonchi. ABDOMEN is soft, obese, nontender. LEGS are no edema. No swelling. CENTRAL NERVOUS SYSTEM: No focal deficits. LAB STUDIES: WBC 13, hemoglobin 11. ASSESSMENT: 1. Acute non ST segment elevation myocardial infarction present on admission, status post coronary artery bypass grafting with CHE to LAD for LAD stenosis. 2. Troponin elevated up to 0.056. 3. Ectatic aortic in the CT scan. 4. Gastroesophageal reflux disease. 5. History of cerebrovascular accident, transient ischemic attack. 6. New onset diabetes type 2. 7. Hyperlipidemia. 8. Hypertension. 9. History of degenerative joint disease. 10.History of transient ischemic attack. 11.History of pernicious anemia on monthly injections. 12.Cholecystectomy. 13.History of bowel resection. 14.Obesity, body mass index of 46.2. RECOMMENDATIONS AND DISCUSSION: Recommend to continue current medications, management and symptomatic treatment. Continue with a 3 shot protocol insulin at this time. We will adjust later. Otherwise, continue to monitor. Incentive spirometry. DVT prophylaxis. Further recommendations to follow. MMODL / IJN: [id number] /
[2018-10-13 20:52] LABS: Glucose,Whole Blood 150 mg/dL (75-99)
[2018-10-13] MEDS: INSULIN NPH 300 UNIT/3 ML VIAL SQ SCH (21:02)
[2018-10-13] MEDS: SENNOSIDES-DOCUSATE SODIUM 1 EACH TAB PO SCH (21:03)
[2018-10-13] MEDS: TAMSULOSIN 0.4 MG CAP.ER.24H PO SCH (21:03)
[2018-10-14] MEDS: HYDROcodone/APAP 7.5-325MG 1 EACH TAB PO PRN ×4 (01:21→19:06)
[2018-10-14 02:10] LABS: Glucose,Whole Blood 149 mg/dL (75-99)
[2018-10-14] MEDS: INSULIN ASPART (NovoLOG) 100 UNIT/ML VIAL SQ SCH ×6 (02:23→21:44)
[2018-10-14 05:20] LABS: Basophils % (A) 0 %; Eosinophils # (A) 0.2 k/uL (0-0.7); Eosinophils % (A) 2 %; HCT 32.3 % (39.0-53.0); HGB 10.9 gm/dL (13.0-17.5); Lymphocytes # (A) 0.9 k/uL (1.0-4.8); Lymphocytes % (A) 8 %; MCH 30.2 pg (25.0-35.0); MCHC 33.6 g/dL (31.0-37.0); MCV 89.8 fL (80.0-100.0); Mean Platelet Volume 8.2; Monocytes # (A) 0.9 k/uL (0-1.0); Monocytes % (A) 8 %; Neutrophils # (A) 8.3 k/uL (1.3-7.7); Neutrophils % (A) 79 %; Platelet Count 134 k/uL (150-450); RDW 14.9 % (11.5-15.5); WBC 10.5 k/uL (3.8-10.6)
[2018-10-14 05:34] LABS: Calcium 8.4 mg/dL (8.4-10.2); Magnesium 2.5 mg/dL (1.6-2.3); Total Protein 5.4 g/dL (6.3-8.2)
[2018-10-14] MEDS: HEPARIN SODIUM,PORCINE 5,000 UNIT/ML 1 ML VIAL SQ SCH ×3 (05:37→21:44)
[2018-10-14 05:45] LABS: Potassium 4.6 mmol/L (3.5-5.1)
[2018-10-14 07:00] LABS: Glucose,Whole Blood 156 mg/dL (75-99)
[2018-10-14] MEDS: MAGNESIUM HYDROXIDE 2,400 MG/10 ML CUP PO PRN (07:06)
[2018-10-14] MEDS: INSULN ASP PRT/INSULIN ASPART 100 UNIT/ML 10 ML VIAL SQ SCH (07:06)
[2018-10-14] MEDS: PANTOPRAZOLE 40 MG TABLET PO SCH (07:06)
--- NOTE | 2018-10-14 07:29 | XR ---
EXAMINATION TYPE: XR chest 1V portable DATE OF EXAM: 10/14/2018 Comparison: 10/13/2018 Clinical History: 73-year-old male post cardiac surgery Findings: Median sternotomy wires. Heart is enlarged. Diffuse interstitial and vascular prominence. Small to mo derate left and small right pleural effusions with adjacent opacity, slightly increased on the left. Left basilar chest tube. No appreciable pneumothorax. Impression: Correlate for continued CHF with pulmonary vascular congestion. Small to moderate left and small righ t effusions with adjacent atelectasis and/or consolidation, slightly worsened on the left.
--- NOTE | 2018-10-14 07:49 | P.PN ---
Subjective Progress Note Date: 10/14/18 Principal diagnosis: Coronary artery disease with LAD system complex disease, unstable angina, preserved left ventricular function with ejection fraction of 55-60%, mild aortic valve stenosis, new diagnosis of type 2 diabetes mellitus with hemoglobin A1c 7.1%. Previous medical history of hypertension, hyperlipidemia, morbid obesity, basal cell skin cancer with resection, venous insufficiency, spinal stenosis with chronic low back pain, history of EtOH in remission, gastroeso phageal reflux disease, prostate disorder, TIA with no residual effects, osteoarthritis, pernicious anemia and family history of premature coronary artery disease. POD #2 urgent all arterial double beating heart coronary artery bypass grafting using the left internal mammary artery sequentially in a [id number] fashion to the second diagonal coronary artery, then to the left anterior descending coronary artery in an end-to-side fashion. Closure of the sternum with a combination of cable and plating system from [employer]. Intraoperative transesophageal echocardiogram and epi-aortic scanning. Intraoperative graft flow measurements using the [employer] Proof system. Postoperative acute blood loss anemia, expected outcome due to hemodilution and history of pernicious anemia. Postoperative atrial fibrillation, unexpected but common condition following open heart surgery, currently in normal sinus rhythm Patient's currently sitting up in a recliner in no acute distress. Does complain of back pain and sternal surgical pain but states it is better since mediastinal chest tube removed yesterday. Denies shortness of breath. Patient went into afib with RVR last night, received IV boluses of amiodarone then started on maintenance drip with conversion back to sinus rhythm this morning, episode lasted less than 24 hours. Hemodynamically stable on no inotropes or pressors. Mediastinal chest tube, fitch catheter discontinued yesterday. Urine output remains adequate. Patient is attempting incentive spirometry use and coughing but with poor effort. Did attempt to ambulate in hallway yesterday. No other new concerns. Objective - Vital Signs Vital signs: Vital Signs Temp 98.7 F 10/14/18 00:00 Pulse 60 10/14/18 07:00 Resp 16 10/14/18 07:00 BP 102/69 10/14/18 02:00 Pulse Ox 96 10/14/18 07:00 Intake & Output 10/13/18 10/14/18 10/14/18 18:59 06:59 18:59 Intake Total 863.692 866.52 3 Output Total 365 530 Balance 498.692 336.52 3 Weight 161.9 kg Intake: IV 148 36 3 Lactated Ringers 1,000 ml 100 @ 20 mls/hr IV .Q24H [facility] Rx#:[id number] Pressure Bags 48 36 3 Intake, IV Titration 135.692 430.52 Amount Amiodarone 360 mg In 33.3 230.52 Dextrose 5% in Water 200 ml @ 1 MG/MIN 33.333 mls/ hr IV .Q6H PRN Rx#: [id number] Dextrose 5% in Water 100 100 200 ml @ 618 mls/hr IV .Q10M PRN with Amiodarone 150 mg Rx#:[id number] Insulin Regular 100 unit 2.392 In Sodium Chloride 0.9% 100 ml @ Titrate IV .Q0M [facility] Rx#:[id number] Oral 580 400 Output: Chest Tube Drainage 220 80 Left 200 80 Mediastinal 20 Urine 145 450 Other: Voiding Method Toilet Urinal # Voids 1 # Bowel Movements 1 ABP, PAP, CO, CI - Last Documented Arterial Blood Pressure 99/43 Pulmonary Artery Pressure 34/15 Cardiac Output 10.6 Cardiac Index 3.9 - Constitutional General appearance: Present: cooperative, morbidly obese, no acute distress - Respiratory Details: Lungs sounds diminished bilaterally with expiratory wheezes heard anteriorly. Respirations even, nonlabored. Currently on 15 L high flow nasal cannula with oxygen saturation 92%. Only able to achieve 500 mL on his incentive spirometry. Weak cough. Left pleural chest tube to continuous wall suction, 30 mL serosanguineous drainage overnight, 250 mL in the last 24 hours. No air leak present. - Cardiovascular Details: S1, S2 present. Regular rate and rhythm, sinus rhythm on telemetry. Sternum stable. Palpable peripheral pulses bilaterally. Trace bilateral lower extremity edema present. No calf pain or tenderness noted. Right internal jugular Cordis, left radial arterial line present. Heart hugger in place with patient demonstrating appropriate use. Antiembolism stockings, SCDs present. - Gastrointestinal Gastrointestinal Comment(s): Abdomen soft, nontender, nondistended, round and obese. Active bowel sounds present 4 quadrants. Tolerating diet. Positive small bowel movement per patient. - Genitourinary Genitourinary Comment(s): Fitch discontinued yesterday. Patient has voided clear yellow urine. - Integumentary Integumentary Comment(s): Skin is warm and dry with evidence of good perfusion. Anterior chest incision well approximated and covered with dry intact dressing. - Neurologic Neurologic: Present: CNII-XII intact - Musculoskeletal Musculoskeletal: Present: generalized weakness, strength equal bilaterally - Psychiatric Psychiatric: Present: A&O x's 3, appropriate affect, intact judgment & insight - Allied health notes Allied health notes reviewed: nursing - Labs CBC & Chem 7: 10/14/18 05:10 10/14/18 05:10 Labs: Abnormal Lab Results - Last 24 Hours (Table) 10/13/18 10/13/18 10/13/18 Range/Units 07:52 12:26 17:15 RBC (4.30-5.90) m/uL Hgb (13.0-17.5) gm/dL Hct (39.0-53.0) % Plt Count (150-450) k/uL Neutrophils # (1.3-7.7) k/uL Lymphocytes # (1.0-4.8) k/uL BUN (9-20) mg/dL Creatinine (0.66-1.25) mg/dL Glucose (74-99) mg/dL POC Glucose (mg/dL) 148 H 140 H 138 H (75-99) mg/dL Magnesium (1.6-2.3) mg/dL AST (17-59) U/L Total Protein (6.3-8.2) g/dL Albumin (3.5-5.0) g/dL 10/13/18 10/13/18 10/14/18 Range/Units 17:15 20:50 02:05 RBC (4.30-5.90) m/uL Hgb (13.0-17.5) gm/dL Hct (39.0-53.0) % Plt Count (150-450) k/uL Neutrophils # (1.3-7.7) k/uL Lymphocytes # (1.0-4.8) k/uL BUN (9-20) mg/dL Creatinine (0.66-1.25) mg/dL Glucose (74-99) mg/dL POC Glucose (mg/dL) 150 H 149 H (75-99) mg/dL Magnesium 2.4 H (1.6-2.3) mg/dL AST (17-59) U/L Total Protein (6.3-8.2) g/dL Albumin (3.5-5.0) g/dL 10/14/18 10/14/18 10/14/18 Range/Units 05:10 05:10 06:58 RBC 3.60 L (4.30-5.90) m/uL Hgb 10.9 L (13.0-17.5) gm/dL Hct 32.3 L (39.0-53.0) % Plt Count 134 L (150-450) k/uL Neutrophils # 8.3 H (1.3-7.7) k/uL Lymphocytes # 0.9 L (1.0-4.8) k/uL BUN 42 H (9-20) mg/dL Creatinine 1.35 H (0.66-1.25) mg/dL Glucose 129 H (74-99) mg/dL POC Glucose (mg/dL) 156 H (75-99) mg/dL Magnesium 2.5 H (1.6-2.3) mg/dL AST 88 H (17-59) U/L Total Protein 5.4 L (6.3-8.2) g/dL Albumin 3.0 L (3.5-5.0) g/dL - Imaging and Cardiology Chest x-ray: report reviewed, image reviewed Assessment and Plan Assessment: 1. Coronary artery disease with LAD system complex disease, status post 2 vessel off-pump CABG 2. Unstable angina 3. Preserved left ventricular function, EF 55-60% 4. Mild aortic valve stenosis 5. New diagnosis type 2 diabetes mellitus with hemoglobin A1c 7.1% 6. Hypertension 7. Hyperlipidemia 8. Morbid obesity 9. TIA in the past, no residual 10. History of basal cell skin cancer greater than 5 years ago with removal 11. Venous insufficiency 12. Spinal stenosis with chronic low back pain 13. History of EtOH abuse, currently in remission for 30 years 14. GERD 15. Prostate disorder 16. Osteoarthritis 17. Pernicious anemia 18. Significant family history of coronary artery disease, 1 brother with premature coronary artery disease 19. Postoperative acute blood loss anemia, expected Plan: 1. Continue to maximize medical therapy with aspirin, statin, Plavix, and beta car. Will increase beta car therapy as tolerated. Will hold lisinopril secondary to increased BUN/creatinine. 2. Continue amiodarone for afib prophylaxis, will transition to oral amio. No anticoagulation at this time as patient was in afib <24 hours. 3. Wean oxygen as tolerated, Bipap management by pulmonary medicine. 4. Encourage incentive spirometry use 10 times every hour while awake. 5. Increase activity, ambulate as tolerated. PT/OT/cardiac rehab following. Patient needs encouragement. 6. Will monitor daily labs and x-rays. Electrolyte replacement per protocol. No transfusion. 7. Pain control with current medication regimen. 8. Insulin management per primary care service. 9. GI/DVT prophylaxis. 10. Will discontinue left pleural chest tube. 11. Order placed for midline catheter. Discontinue cordis once placed. 12. Diabetic teaching for new diagnosis of T2DM. 13. Per PT/OT recommendations, patient may go home with home care. Patient wishes to go to rehab to make it easier for his , and for more aggressive therapy. Dr. Nowak consulted for recommendations for inpatient rehab. 14. More recommendations to follow based on patient's clinical course. Time with Patient: Greater than 30
--- NOTE | 2018-10-14 07:59 | PN ---
PROGRESS NOTE Mr. Pimentel is a 73-year-old male, status post coronary artery bypass grafting. He is sitting up in the chair. He had an episode of atrial fibrillation yesterday. He is back in sinus mechanism. He is denying any chest pain. He has mild dyspnea. No dizziness. No palpitation. Hemodynamically, he is stable otherwise. He continues to be on aspirin once a day, Plavix 75 mg daily. He received a loading dose of amiodarone, intravenously. He is on Lipitor 40 mg daily, metoprolol tartrate 50 mg twice a day. PHYSICAL EXAMINATION: Blood pressure 113/50 with a heart rate in the 60s. LUNGS: A few crackles at the bases. HEART: Regular rate and rhythm, S1, S2. No S3. No rub appreciated. ABDOMEN: Soft, nontender. Positive bowel sounds. EXTREMITIES: No significant edema. LAB DATA: Revealed a hemoglobin 10.9. BUN and creatinine of 42 and 1.35. Chest x-ray showed a small effusion. IMPRESSION: 1. Status post coronary artery bypass grafting. 2. Paroxysmal atrial fibrillation. 3. Hypertension. 4. Hyperlipidemia. 5. Mild renal functional abnormalities. RECOMMENDATION: Will continue present therapy. Will continue to follow the rhythm. If he has further episodes of atrial fibrillation, then anticoagulation may need to be started. Will increase his level of activity. Continue incentive spirometry. MMKIARAL / FIONAN: [id number] /
[2018-10-14] MEDS: IPRATROPIUM-ALBUTEROL 3 ML NEB INHALATION SCH ×4 (08:52→19:51)
--- NOTE | 2018-10-14 08:52 | P.CONS ---
History of Present Illness - Chief Complaint Cardiac debility - History of Present Illness I had the opportunity to see patient for inpatient rehab consultation with regard to cardiac debility. He was admitted to [facility] October 09 with chest pain of 4 days duration, non-STEMI. Evaluated underwent CHE to LAD. Seen in consultation by Dr. French for ICU care. Chest x-rays followed for congestion and effusions. Carotid Doppler with less than 15% stenosis right and left ICA. PT reports minimal assistance for bed mobility minimal assistance to person for gait 15 feet. OT prescribed. Previous functional history as elicited from patient: 73-year-old right-handed white male who lives in one floor home with . Patient works full-time and works part-time. Patient indeed independent with driving, standing shower gait without device. does the cooking and laundry generally. Patient did not require assistive device. Denies tobacco round call. Dr. Olmstead is regular doctor. Family history of CT in both parents. Review of Systems Review of systems: ENT: Denies sneezes or discharge. Eyes: Denies discharge or photophobia. Cardiac: Sternal. Pulmonary: Moderate shortness of breath. Gastrointestinal: Denies nausea, emesis, constipation, diarrhea. Genitourinary: Denies discharge or frequency. Musculoskeletal: Denies muscle or bone aches. Neurologic: Generalized weakness. Endocrine: Denies shakes or sweats. Oncology: Denies cancers. Dermatologic: Denies rash, itching, pruritus. ALLERGY/immunology: Denies sneezes, rashes. Past Medical History Past Medical History: Cancer, CVA/TIA, Eye Disorder, GERD/Reflux, Hyperlipidemia, Hypertension, Osteoarthritis (OA), Prostate Disorder, Skin Disorder Additional Past Medical History / Comment(s): TIA yrs. 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 VERONICA CATARACT Past Anesthesia/Blood Transfusion Reactions: No Reported Reaction Past Psychological History: No Psychological Hx Reported Smoking Status: Never smoker Past Alcohol Use History: None Reported Past Drug Use History: None Reported - Past Family History Father Family Medical History: Congestive Heart Failure (CHF), CVA/TIA Additional Family Medical History / Comment(s): at age 68 Brother(s) Family Medical History: Cancer, COPD, Diabetes Mellitus Additional Family Medical History / Comment(s): heart problems Mother Family Medical History: Myocardial Infarction (CT) Additional Family Medical History / Comment(s): at 79 w/ CT Medications and Allergies Home Medications Medication Instructions Recorded Confirmed Type Lisinopril [Zestril] 20 mg PO HS 11/02/13 10/09/18 History Multivitamin [Men's Multi-Vitamin] 1 tab PO DAILY 04/01/15 10/09/18 History Cholecalciferol [Vitamin D3] 2,000 unit PO DAILY 09/30/15 10/09/18 History Meloxicam [Mobic] 15 mg PO DAILY 03/01/17 10/09/18 History Cyanocobalamin [Vitamin B-12 1,000 mcg SQ QMONTH 09/27/17 10/09/18 History Injection] Cyanocobalamin (Vitamin B-12) 2,000 mcg PO DAILY 10/09/18 10/09/18 History [Vitamin B-12] Omeprazole 20 mg PO DAILY 10/09/18 10/09/18 History Tamsulosin HCl [Flomax] 0.4 mg PO DAILY 10/09/18 10/09/18 History Allergies Allergy/AdvReac Type Severity Reaction Status Date / Time azithromycin [From Zithromax] AdvReac Nausea & Verified 10/09/18 13:26 Vomiting codeine AdvReac Nausea & Verified 10/09/18 13:26 Vomiting Physical Exam Vitals: Vital Signs Temp Pulse Resp BP Pulse Ox 10/14/18 07:48 95 10/14/18 07:00 60 16 96 10/14/18 06:00 62 20 97 10/14/18 05:00 94 14 96 10/14/18 04:00 104 H 16 98 10/14/18 03:00 98 14 94 L 10/14/18 02:00 109 H 24 102/69 94 L 10/14/18 01:00 112 H 14 95 10/14/18 00:00 98.7 F 109 H 16 94 L 10/13/18 23:15 112 H 14 135/57 94 L 10/13/18 23:00 111 H 11 L 93 L 10/13/18 22:00 108 H 16 94 L 10/13/18 21:10 114 H 25 H 10/13/18 21:00 106 H 18 93 L 10/13/18 20:59 106 H 18 10/13/18 20:00 98.8 F 111 H 22 86 L 10/13/18 19:00 104 H 24 93 L 10/13/18 18:00 107 H 16 92 L 10/13/18 17:00 130 H 16 95 10/13/18 16:31 73 14 10/13/18 16:19 70 14 10/13/18 16:00 97.6 F 71 16 94 L 10/13/18 15:00 70 18 96 10/13/18 14:00 70 18 96 10/13/18 13:00 70 13 97 10/13/18 12:40 73 10/13/18 12:00 98.2 F 72 20 96 10/13/18 11:00 71 14 96 10/13/18 10:00 69 18 94 L 10/13/18 09:08 64 10/13/18 09:00 66 20 96 Intake and Output 10/13/18 10/14/18 10/14/18 22:59 06:59 14:59 Intake Total 890.6 221.22 3 Output Total 370 250 Balance 520.6 -28.78 3 Intake: IV 24 24 3 Pressure Bags 24 24 3 Intake, IV Titration 366.6 197.22 Amount Amiodarone 360 mg In 66.6 197.22 Dextrose 5% in Water 200 ml @ 1 MG/MIN 33.333 mls/ hr IV .Q6H PRN Rx#: [id number] Dextrose 5% in Water 100 300 ml @ 618 mls/hr IV .Q10M PRN with Amiodarone 150 mg Rx#:[id number] Oral 500 Output: Chest Tube Drainage 170 0 Left 170 0 Urine 200 250 Other: Voiding Method Urinal Urinal # Voids 1 # Bowel Movements 1 Weight 161.9 kg ABP, PAP, CO, CI - Last 8 Hours Arterial Blood Pressure 99/43 Arterial Blood Pressure 113/49 Arterial Blood Pressure 117/57 Arterial Blood Pressure 97/54 Arterial Blood Pressure 110/60 Arterial Blood Pressure 108/58 Arterial Blood Pressure 114/58 Cardiac Output 10.6 Cardiac Output 10.6 Cardiac Output 10.6 Cardiac Output 10.6 Cardiac Index 3.9 Cardiac Index 3.9 Cardiac Index 3.9 Cardiac Index 3.9 Skin: Good color, texture, turgor. General: Obese build and comfortable appearance. Head: Normocephalic, atraumatic. Eyes: Symmetric. Pupils equal round. Ears: Symmetric. Hearing within normal limits. Mouth: Clear. Neck: Supple. Carotid without bruit. Cardiac: Regular rate and rhythm. Lungs: Clear anteriorly and posteriorly. Abdomen: Soft active nontender. Extremities: Normal tone. Neurological: Mental status: Alert, cooperative, pleasant. Cranial nerves: Symmetric facial tone and trapezius. Motor: Can actively elevate all 4 limbs. But appears at best antigravity in legs. Sensation: Intact throughout. DTRs: Symmetric and equal throughout. Mobility: Requires assistance for bed mobility and care. Results CBC & Chem 7: 10/14/18 05:10 10/14/18 05:10 Labs: Abnormal Lab Results - Last 24 Hours (Table) 10/13/18 10/13/18 10/13/18 Range/Units 12:26 17:15 17:15 RBC (4.30-5.90) m/uL Hgb (13.0-17.5) gm/dL Hct (39.0-53.0) % Plt Count (150-450) k/uL Neutrophils # (1.3-7.7) k/uL Lymphocytes # (1.0-4.8) k/uL BUN (9-20) mg/dL Creatinine (0.66-1.25) mg/dL Glucose (74-99) mg/dL POC Glucose (mg/dL) 140 H 138 H (75-99) mg/dL Magnesium 2.4 H (1.6-2.3) mg/dL AST (17-59) U/L Total Protein (6.3-8.2) g/dL Albumin (3.5-5.0) g/dL 10/13/18 10/14/18 10/14/18 Range/Units 20:50 02:05 05:10 RBC 3.60 L (4.30-5.90) m/uL Hgb 10.9 L (13.0-17.5) gm/dL Hct 32.3 L (39.0-53.0) % Plt Count 134 L (150-450) k/uL Neutrophils # 8.3 H (1.3-7.7) k/uL Lymphocytes # 0.9 L (1.0-4.8) k/uL BUN (9-20) mg/dL Creatinine (0.66-1.25) mg/dL Glucose (74-99) mg/dL POC Glucose (mg/dL) 150 H 149 H (75-99) mg/dL Magnesium (1.6-2.3) mg/dL AST (17-59) U/L Total Protein (6.3-8.2) g/dL Albumin (3.5-5.0) g/dL 10/14/18 10/14/18 Range/Units 05:10 06:58 RBC (4.30-5.90) m/uL Hgb (13.0-17.5) gm/dL Hct (39.0-53.0) % Plt Count (150-450) k/uL Neutrophils # (1.3-7.7) k/uL Lymphocytes # (1.0-4.8) k/uL BUN 42 H (9-20) mg/dL Creatinine 1.35 H (0.66-1.25) mg/dL Glucose 129 H (74-99) mg/dL POC Glucose (mg/dL) 156 H (75-99) mg/dL Magnesium 2.5 H (1.6-2.3) mg/dL AST 88 H (17-59) U/L Total Protein 5.4 L (6.3-8.2) g/dL Albumin 3.0 L (3.5-5.0) g/dL Assessment and Plan (1) NSTEMI (non-ST elevation myocardial infarction) Current Visit: Yes Status: Acute Code(s): I21.4 - NON-ST ELEVATION (NSTEMI) MYOCARDIAL INFARCTION SNOMED Code(s): 00940846 Plan: Impression: 1. Cardiac debility. 2. Non-STEMI and unstable angina. 3. Status post single-vessel CABG. 4. Morbid obesity. 5. Hypertension. 6. Tamar arthritis. 7. History of stroke and cancer. Comments and plan: PT and OT prescribed. We'll follow therapies with yourself. Patient has already been advised on possible inpatient rehab. At this time do not anticipate direct return to home.
[2018-10-14] MEDS: CYANOCOBALAMIN 500 MCG TAB PO SCH (09:58)
[2018-10-14] MEDS: ATORVASTATIN 40 MG TAB PO SCH (09:58)
[2018-10-14] MEDS: ASPIRIN 325 MG TAB PO SCH (09:58)
[2018-10-14] MEDS: AMIODARONE 200 MG TAB PO SCH ×2 (09:58→21:45)
[2018-10-14] MEDS: CHOLECALCIFEROL 1,000 UNIT TAB PO SCH (09:58)
[2018-10-14] MEDS: CLOPIDOGREL 75 MG TAB PO SCH (09:59)
[2018-10-14] MEDS: MULTIVITAMINS, THERA 1 EACH TAB PO SCH (09:59)
[2018-10-14] MEDS: METOPROLOL TARTRATE 25 MG TAB PO SCH ×2 (10:00→21:45)
[2018-10-14 11:57] LABS: Glucose,Whole Blood 128 mg/dL (75-99)
--- NOTE | 2018-10-14 15:54 | P.PN ---
Subjective Progress Note Date: 10/14/18 This is a 73-year-old patient of Dr. Olmstead, with past medical history of hype rtension, hyperlipidemia, morbid obesity, basal cell skin cancer with resection, significant family history of coronary artery disease, pernicious anemia. Patient has been having intermittent chest pain radiating to his back, associated with shortness of breath. Patient came into the ED for evaluation, twelve-lead EKG showed normal sinus rhythm with nonspecific T-wave abnormality in the lead 3. Chest CT was completed and showed no evidence of aortic dissection, and showed ectatic ascending aorta and upper descending thoracic aorta at 3.4 cm. Showed bibasilar atelectasis, and multifocal patchy inferior lingular opacity representing atelectasis. Patient was evaluated by cardiology, patient had elevation of troponin, and was ruled in of non-ST elevated myocardial infarction. He underwent coronary angiography which showed mid LAD lesion of 80% that also involves the 2 diagonal branches, have a calcified right coronary artery without significant disease and nondominant circumflex. Ec hocardiogram showed EF of 55-60%, mild aortic sclerosis with mild aortic stenosis, mild tricuspid regurgitation, no pulmonary hypertension, trace pulmonic regurgitation. On 10/11/2018 patient underwent single-vessel bypass with a CHE to LAD off-pump. Patient is seen in intensive care unit following his surgery. He is sedated, intubated on mechanical ventilator, with the SIMV mode of ventilation, with a rate of 12, tidal and 500, FiO2 100% and PEEP of 10. The blood gases stop showed pO2 of 191, pCO2 54, and pH of 7.29, O2 was dropped down to 80%, and patient was switched to assist control mode of ventilation with a rate of 20, subsequent blood gases in 1 hour showed improvement in the ve ntilation, with pCO2 down to 47, and pH of 7.34, and pO2 was 88%. O2 sat remains borderline, at 90%, repeat blood gases were obtained, after FiO2 was cut back to 60% from 80%, and blood gas showed a pO2 of 60%, pCO2 43, and pH of 7.36 and FiO2 was back up to 80%. Lactated Ringer Jacinto at a rate of 50, nitroglycerin drip is at 5 mics per kilo per minute, insulin drip, Diprivan and has been weaned off, and patient is currently on Precedex in view of patient's chronic pain. Awake and alert, following commands. His chest x-ray has been reviewed, showing postoperative changes with bilateral atelectasis, and small pleural effusions, and a tiny 5% or less apical pneumothorax on the left. Gladis ent has a 2 mediastinal and left pleural chest tube, is hemodynamically stable, there has been 440 mL of serosanguineous output from the left and 200 mL from the mediastinal chest tubes, urine output is adequate. Is in sinus mechanism, with controlled rate. On today's evaluation of 10/12/2018, the patient is extubated earlier this morning to a BiPAP at a pressure of 10/5 cm of water and FiO2 of 60%. Note that the patient was having difficulties with oxygenation throughout the night. I gradually wean down the FiO2. The necessary vent changes were done. Ultimately this morning the patient was given a spontaneous breathing trial with a pressure support of 5 and PEEP of 5 and ultimately was extubated to a BiPAP. He was having significant amount of chest wall pain secondary to the surgery and the surgical wound site and the patient was given Toradol and morphine for pain control. He is hemodynamically stable. On today's evaluation he is awake and alert. He is off the Precedex. His cardiac output is at 8.2 with an index of 3.0. Pulmonary artery pressures are 32/19. His CVP is at 14. He is awake and alert and is following commands and answering questions appropriately. Chest tubes are in place. Chest x-ray shows typical postsurgical changes. Sternum stable clean and intact and the patient is small better pleural effusion and atelectatic changes in lung bases bilaterally. Output from the chest tube was also noted. On 10/13/2018 I'm seeing this patient for a follow-up. The patient is off the BiPAP. His postop day #2. Doing well. He is on high flow oxygen 6 L per minute nasal cannula. No chest pain. No cough sputum production or chest tightness or wheezing. His chest wall pain is under good control. Sternum stable clean and intact. Output from the mid descending tube is minimal and this will be discontinued. Output from the pleural tube is still high and this will be kept in place. Today's chest x-ray was noted. Dumas-Nicolle catheter removed. No other complaints. No altered mentation. No cardiac arrhythmias pain no fever or chills. He is using incentive spirometer. The patient's renal function is within normal limits. The patient's white cell count of 13.0. On 10/14/2018 I'm seeing this patient for follow-up. The patient is postop day #3. Doing well. No complaints. Resting comfortably in bed. Overnight the patient went into atrial fibrillation with rapid ventricular response. He was loaded with amiodarone. Subsequently converted to sinus bradycardia. Amiodarone was discontinued. The patient is on a lower dose of metoprolol for now. He remains hemodynamically stable. During the process the patient dropped his urine output and he sustained an acute kidney injury. Otherwise, his producing good urine output for now. His rhythm is sinus. We discount tubes have been removed and the pleural tubes were also removed today. Krueger catheter was discontinued yesterday. He is doing okay on the incentive spirometer and order of 800 mL. Chest x-ray shows increased vascular congestion and increased pulmonary vascular markings bilaterally. Sternal stable clean and intact.Chest pain and the pain is under good control for now. Objective - Vital Signs Vital signs: Vital Signs Temp 98.4 F 10/14/18 12:00 Pulse 64 10/14/18 15:00 Resp 20 10/14/18 15:00 BP 117/66 10/14/18 15:00 Pulse Ox 97 10/14/18 15:00 Intake & Output 10/13/18 10/14/18 10/14/18 18:59 06:59 18:59 Intake Total 863.692 866.52 24 Output Total 365 530 375 Balance 498.692 336.52 -351 Weight 161.9 kg Intake: IV 148 36 24 Lactated Ringers 1,000 ml 100 @ 20 mls/hr IV .Q24H [facility] Rx#:[id number] Pressure Bags 48 36 24 Intake, IV Titration 135.692 430.52 Amount Amiodarone 360 mg In 33.3 230.52 Dextrose 5% in Water 200 ml @ 1 MG/MIN 33.333 mls/ hr IV .Q6H PRN Rx#: [id number] Dextrose 5% in Water 100 100 200 ml @ 618 mls/hr IV .Q10M PRN with Amiodarone 150 mg Rx#:[id number] Insulin Regular 100 unit 2.392 In Sodium Chloride 0.9% 100 ml @ Titrate IV .Q0M [facility] Rx#:[id number] Oral 580 400 Output: Chest Tube Drainage 220 80 20 Left 200 80 20 Mediastinal 20 Urine 145 450 355 Other: Voiding Method Toilet Urinal Urinal # Voids 1 0 # Bowel Movements 1 ABP, PAP, CO, CI - Last Documented Arterial Blood Pressure 127/51 Pulmonary Artery Pressure 34/15 Cardiac Output 10.6 Cardiac Index 3.9 - Exam - Constitutional General appearance: Present: cooperative, morbidly obese, no acute distress - Respiratory Details: Lungs sounds diminished bilaterally with expiratory wheezes heard anteriorly. Respirations even, nonlabored. Currently on 15 L high flow nasal cannula with oxygen saturation 92%. Only able to achieve 500 mL on his incentive spirometry. Weak cough. Left pleural chest tube to continuous wall suction, 30 mL serosanguineous drainage overnight, 250 mL in the last 24 hours. No air leak present. - Cardiovascular Details: S1, S2 present. Regular rate and rhythm, sinus rhythm on telemetry. Sternum stable. Palpable peripheral pulses bilaterally. Trace bilateral lower extremity edema present. No calf pain or tenderness noted. Right internal jugular Cordis, left radial arterial line present. Heart hugger in place with patient demonstrating appropriate use. Antiembolism stockings, SCDs present. - Gastrointestinal Gastrointestinal Comment(s): Abdomen soft, nontender, nondistended, round and obese. Active bowel sounds present 4 quadrants. Tolerating diet. Positive small bowel movement per patient. - Genitourinary Genitourinary Comment(s): Krueger discontinued yesterday. Patient has voided clear yellow urine. - Integumentary Integumentary Comment(s): Skin is warm and dry with evidence of good perfusion. Anterior chest incision well approximated and covered with dry intact dressing. - Neurologic Neurologic: Present: CNII-XII intact - Musculoskeletal Musculoskeletal: Present: generalized weakness, strength equal bilaterally - Psychiatric Psychiatric: Present: A&O x's 3, appropriate affect, intact judgment & insight - Labs CBC & Chem 7: 10/14/18 05:10 10/14/18 05:10 Labs: Abnormal Lab Results - Last 24 Hours (Table) 10/13/18 10/13/18 10/13/18 Range/Units 17:15 17:15 20:50 RBC (4.30-5.90) m/uL Hgb (13.0-17.5) gm/dL Hct (39.0-53.0) % Plt Count (150-450) k/uL Neutrophils # (1.3-7.7) k/uL Lymphocytes # (1.0-4.8) k/uL BUN (9-20) mg/dL Creatinine (0.66-1.25) mg/dL Glucose (74-99) mg/dL POC Glucose (mg/dL) 138 H 150 H (75-99) mg/dL Magnesium 2.4 H (1.6-2.3) mg/dL AST (17-59) U/L Total Protein (6.3-8.2) g/dL Albumin (3.5-5.0) g/dL 10/14/18 10/14/18 10/14/18 Range/Units 02:05 05:10 05:10 RBC 3.60 L (4.30-5.90) m/uL Hgb 10.9 L (13.0-17.5) gm/dL Hct 32.3 L (39.0-53.0) % Plt Count 134 L (150-450) k/uL Neutrophils # 8.3 H (1.3-7.7) k/uL Lymphocytes # 0.9 L (1.0-4.8) k/uL BUN 42 H (9-20) mg/dL Creatinine 1.35 H (0.66-1.25) mg/dL Glucose 129 H (74-99) mg/dL POC Glucose (mg/dL) 149 H (75-99) mg/dL Magnesium 2.5 H (1.6-2.3) mg/dL AST 88 H (17-59) U/L Total Protein 5.4 L (6.3-8.2) g/dL Albumin 3.0 L (3.5-5.0) g/dL 10/14/18 10/14/18 Range/Units 06:58 11:55 RBC (4.30-5.90) m/uL Hgb (13.0-17.5) gm/dL Hct (39.0-53.0) % Plt Count (150-450) k/uL Neutrophils # (1.3-7.7) k/uL Lymphocytes # (1.0-4.8) k/uL BUN (9-20) mg/dL Creatinine (0.66-1.25) mg/dL Glucose (74-99) mg/dL POC Glucose (mg/dL) 156 H 128 H (75-99) mg/dL Magnesium (1.6-2.3) mg/dL AST (17-59) U/L Total Protein (6.3-8.2) g/dL Albumin (3.5-5.0) g/dL Assessment and Plan Plan: 1 coronary artery disease with complex LAD lesion and the patient has undergone bypass surgery with 2 vessel bypass. The patient is postop day #3 2 thoracotomy and the patient has been extubated and the patient has the mediastinal pleural chest tubes removed. 3 chest wall pain, surgically nature, expected outcome of surgery 4 mild aortic stenosis 5 hypertension 6 hyperlipidemia 7 morbid obesity with BMI 47.4 8 spinal stenosis chronic back pain 9 history of alcoholism currently in remission 10 BPH 11 history of TIA 12 osteoarthritis 13 atrial fibrillation with RVR, currently back to sinus 14 acute kidney injury in the creatinine from today is up to 1.35. The patient is producing adequate amount of urine output. Plan Patient is doing well. No complaints for now. Hold the lisinopril. Monitor renal function. Hold on diuretics for now. Continue using incentive spirometer. Chest tubes are removed. We'll continue to follow.
--- NOTE | 2018-10-14 16:06 | PN ---
PROGRESS NOTE DATE OF SERVICE: 10/14/2018 This 73-year-old gentleman who was admitted with acute ahw-[place]-qdpzbzt-elevation myocardial infarction had CAD, CABG. The patient is being closely monitored at this time. The patient had atrial fibrillation. No chest pain. No palpitations. No fever. The patient is slated to go to inpatient rehab per Dr. Nowak. The blood sugars have been controlled at 149, 156, 128 with 3-shot protocol. Creatinine is 1.35. The oral intake appears to be adequate and stable. Past medical history reviewed. REVIEW OF SYSTEMS: CARDIOVASCULAR SYSTEM: As mentioned earlier. RESPIRATORY SYSTEM: As mentioned earlier. GI: No nausea, vomiting. : No dysuria or retention. NERVOUS SYSTEM: No numbness, weakness. ENDOCRINE: As mentioned earlier. CURRENT MEDICATIONS: Reviewed. They include: 1. Tylenol 1000 mg q.6 p.r.n. 2. [place] 7.5 q.4 p.r.n. 3. DuoNeb q.i.d. 4. Cordarone 400 mg p.o. b.i.d. 5. Aspirin 325 mg p.o. daily. 6. Lipitor 40 mg p.o. daily. 7. Cepacol. 8. Dulcolax 10 mg daily p.r.n. 9. Vitamin D3. 10.Plavix 75 mg p.o. daily. 11.Vitamin B12 2000 mg p.o. daily. 12.Amiodarone drip followed by p.o. 13.Heparin 5000 units subcutaneously q.8. 14.Apresoline p.r.n. 15.NovoLog. 16.Humulin N. 17.Lopressor. 18.Magnesium replacement protocol. 19.Multivitamins. 20.Protonix. 21.Flomax. PHYSICAL EXAMINATION: Patient is alert, oriented x3. Pulse is 60, blood pressure 120/69, respiration 13, temperature 98.4, pulse ox 98% on 9 L high-flow nasal cannula. HEENT: Conjunctivae normal. Oral mucosa moist. NECK: No jugular venous distention. No carotid bruit. No lymph node enlargement. CARDIOVASCULAR SYSTEM: S1, S2 muffled. RESPIRATORY SYSTEM: Breath sounds diminished at the bases. Bilateral scattered rhonchi and crackles. ABDOMEN: Soft, obese, non-tender. No mass palpable. LEGS: No edema. No swelling. NERVOUS SYSTEM: Higher functions as mentioned earlier. Moves all 4 limbs. No focal motor or sensory deficit. LYMPHATICS: No lymph node palpable in neck, axillae or groin. SKIN: No ulcer, rash, bleeding. JOINTS: No active deforming arthropathy. LABS: WBC 10.5, hemoglobin 10.9, platelets 134. INR is 1.0. Other labs are noted. ASSESSMENT: 1. Acute gxm-XV-hrgsifz-elevation myocardial infarction, present on admission, status post coronary artery bypass grafting, CHE to LAD for LAD stenosis. 2. Troponin elevated up to 0.056. 3. Ectatic aortic on the CT scan. 4. Paroxysmal atrial fibrillation. Currently the patient is on Humulin N 16 units and NovoLog Mix 70/30, 33 units. 5. Gastroesophageal reflux disease. 6. History of cerebrovascular accident, transient ischemic attack. 7. New-onset diabetes mellitus, type 2, on 3-shot protocol. 8. Hyperlipidemia. 9. Hypertension. 10.History of degenerative joint disease. 11.History of transient ischemic attack. 12.History of pernicious anemia, on monthly injections. 13.Cholecystectomy. 14.Bowel resection. 15.Obesity; body mass index 46.2. 16.Gait dysfunction. RECOMMENDATIONS AND DISCUSSION: I recommend to continue current medications, continue with the monitoring, symptomatic treatment. Recommend inpatient rehab. Otherwise, incentive spirometer, bronchodilators. Monitor labs closely. Will continue to monitor. Further recommendations to follow. MMDWAINE / FIONAN: [id number] / MTDD
[2018-10-14] MEDS: ACETAMINOPHEN TAB 500 MG TAB PO PRN (16:40)
[2018-10-14 16:57] LABS: Glucose,Whole Blood 136 mg/dL (75-99)
[2018-10-14 21:11] LABS: Glucose,Whole Blood 167 mg/dL (75-99)
[2018-10-14] MEDS: INSULIN NPH 300 UNIT/3 ML VIAL SQ SCH (21:44)
[2018-10-14] MEDS: SENNOSIDES-DOCUSATE SODIUM 1 EACH TAB PO SCH (21:45)
[2018-10-14] MEDS: TAMSULOSIN 0.4 MG CAP.ER.24H PO SCH (21:45)
[2018-10-14 21:59] LABS: Glucose,Whole Blood 163 mg/dL (75-99)
[2018-10-15 02:15] LABS: Glucose,Whole Blood 130 mg/dL (75-99)
[2018-10-15] MEDS: INSULIN ASPART (NovoLOG) 100 UNIT/ML VIAL SQ SCH ×6 (03:37→21:26)
[2018-10-15 05:40] LABS: HCT 32.1 % (39.0-53.0); HGB 10.5 gm/dL (13.0-17.5); MCH 29.2 pg (25.0-35.0); MCHC 32.5 g/dL (31.0-37.0); MCV 89.9 fL (80.0-100.0); Mean Platelet Volume 8.3; Platelet Count 152 k/uL (150-450); RBC 3.57 m/uL (4.30-5.90); RDW 14.4 % (11.5-15.5); WBC 8.5 k/uL (3.8-10.6)
[2018-10-15] MEDS: HYDROcodone/APAP 7.5-325MG 1 EACH TAB PO PRN (06:06)
[2018-10-15] MEDS: HEPARIN SODIUM,PORCINE 5,000 UNIT/ML 1 ML VIAL SQ SCH ×3 (06:06→21:19)
[2018-10-15] MEDS: MAGNESIUM HYDROXIDE 2,400 MG/10 ML CUP PO PRN (06:11)
[2018-10-15 06:17] LABS: Potassium 4.7 mmol/L (3.5-5.1)
[2018-10-15 07:00] LABS: Glucose,Whole Blood 147 mg/dL (75-99)
[2018-10-15] MEDS: INSULN ASP PRT/INSULIN ASPART 100 UNIT/ML 10 ML VIAL SQ SCH (07:12)
[2018-10-15] MEDS: PANTOPRAZOLE 40 MG TABLET PO SCH (07:12)
--- NOTE | 2018-10-15 07:24 | XR ---
EXAMINATION TYPE: XR chest 2V DATE OF EXAM: 10/15/2018 COMPARISON: 10/14/2018 TECHNIQUE: PA and lateral views submitted. HISTORY: Post cardiac surgery FINDINGS: Median sternotomy wires. Heart is enlarged. Diffuse interstitial and vascular prominence. Small to mo derate left and small right pleural effusions with adjacent opacity, slightly increased on the left. Left basilar chest tube. No appreciable pneumothorax. IMPRESSION: 1. Correlate for stable CHF with pulmonary vascular congestion. Small to moderate left and small righ t effusions with adjacent atelectasis and/or consolidation, which is stable.
[2018-10-15] MEDS: IPRATROPIUM-ALBUTEROL 3 ML NEB INHALATION SCH ×4 (07:38→20:57)
[2018-10-15] MEDS: METOPROLOL TARTRATE 25 MG TAB PO SCH ×2 (08:54→21:18)
[2018-10-15] MEDS: ASPIRIN 325 MG TAB PO SCH (08:54)
[2018-10-15] MEDS: AMIODARONE 200 MG TAB PO SCH ×2 (08:54→21:18)
[2018-10-15] MEDS: CYANOCOBALAMIN 500 MCG TAB PO SCH (08:54)
[2018-10-15] MEDS: CHOLECALCIFEROL 1,000 UNIT TAB PO SCH (08:54)
[2018-10-15] MEDS: ACETAMINOPHEN TAB 500 MG TAB PO PRN ×3 (08:54→23:12)
[2018-10-15] MEDS: CLOPIDOGREL 75 MG TAB PO SCH (08:54)
[2018-10-15] MEDS: ATORVASTATIN 40 MG TAB PO SCH (08:54)
[2018-10-15] MEDS: MULTIVITAMINS, THERA 1 EACH TAB PO SCH (08:55)
--- NOTE | 2018-10-15 09:12 | PN ---
PROGRESS NOTE Mr. Pimentel is a 73-year-old male status post coronary artery bypass grafting. He continues to be in sinus mechanism without episode of atrial fibrillation, sitting up in the chair, but feels tired and fatigued. He is short of breath. He denies any dizziness. He has no anginal symptoms. Hemodynamically, he is stable and continues to be on aspirin once a day, Lipitor 40 mg daily, Plavix 75 mg daily, metoprolol tartrate 25 mg twice a day. PHYSICAL EXAMINATION: Blood pressure 120/70 with a heart rate in the 60s. Lungs with decreased air exchange at the bases, more on the left side. Heart regular rate and rhythm S1, S2. No S3. No rub. ABDOMEN: Soft, obese, nontender. EXTREMITIES: Trace to 1+ edema. LAB DATA: Lab data revealed BUN and creatinine 53 and 1.2, potassium 4.7, hemoglobin of 10.5. Chest x-ray shows evidence of effusion on the left side. IMPRESSION: 1. Status post coronary artery bypass grafting. 2. Left pleural effusion. 3. Hypertension. 4. Paroxysmal atrial fibrillation remains in sinus mechanism. 5. Obesity. 6. Hyperlipidemia. RECOMMENDATION: We will continue present therapy. Continue incentive spirometry. Increase his level of activity. We will follow his effusion to see if it needs to undergo thoracentesis. In the meantime, I have encouraged him to use incentive spirometry and increase his activity. SOMMER / FIONAN: [id number] /
--- NOTE | 2018-10-15 09:25 | P.PN ---
Subjective Progress Note Date: 10/15/18 Principal diagnosis: Coronary artery disease with LAD system complex disease, unstable angina, preserved left ventricular function with ejection fraction of 55-60%, mild aortic valve stenosis, newly diagnosed type 2 diabetes mellitus with an admission hemoglobin A1c of 7.1%, history of hypertension, hyperlipidemia, morbid obesity, basal cell skin cancer with resection, venous insufficiency, spinal stenosis with chronic with chronic pain, history of EtOH in remission, gastroesophageal reflux disease, prostate disorder, history of TIA with no residual effects, osteoarthritis, family history of premature coronary artery disease and pernicious anemia. POD #3 urgent all arterial double beating heart coronary artery bypass grafting using the left internal mammary artery sequentially in a side to side fashion to the second diagonal coronary artery, then to the left anterior descending coronary artery in an end-to-side fashion. Closure of the sternum with a combination of cable and plating system from [employer]. Intraoperative transesophageal echocardiogram and epi-aortic scanning. Intraoperative graft flow measurements using the [employer] system. Postoperative acute blood loss anemia, an expected outcome due to hemodilution and his history of pernicious anemia. Postoperative paroxysmal atrial fibrillation, an unexpected outcome. The patient is sitting up to the bedside chair in the intensive care unit. He is in no acute distress. He is complaining of lower back pain which he states is chronic. Denies any complaints of shortness of breath. He is complaining of generalized weakness and feeling quite fatigued, reports that he is having trouble keeping his eyes open. No further episodes of atrial fibrillation throughout the night, bedside telemetry showing normal sinus rhythm heart rate 75. He remains hemodynamically stable and is currently on no inotropic or pressor support. He is tolerating oral intake. Oxygen saturations are 97% on 9 L high flow nasal cannula. Achieving 750 mL on his incentive spirometry with much encouragement. He reports that he has been ambulating in the intensive care unit hallway with minimal assistance and has already gone for a walk this morning. Objective - Vital Signs Vital signs: Vital Signs Temp 97.9 F 10/15/18 04:00 Pulse 69 10/15/18 04:00 Resp 16 10/15/18 04:00 BP 121/74 10/15/18 04:00 Pulse Ox 96 10/15/18 04:00 Intake & Output 10/14/18 10/15/18 10/15/18 18:59 06:59 18:59 Intake Total 24 236 Output Total 495 800 Balance -471 -800 236 Weight 161.9 kg 163.1 kg Intake: IV 24 Pressure Bags 24 Oral 236 Output: Chest Tube Drainage 20 Left 20 Urine 475 800 Other: Voiding Method Urinal Urinal # Voids 0 1 ABP, PAP, CO, CI - Last Documented Arterial Blood Pressure 127/51 Pulmonary Artery Pressure 34/15 Cardiac Output 10.6 Cardiac Index 3.9 - Constitutional General appearance: Present: cooperative, morbidly obese, no acute distress - Respiratory Details: Lung sounds essentially clear to his bilateral upper lobes, diminished to his bilateral bases. No wheezes rhonchi or crackles present. Respirations are symmetrical and nonlabored. Oxygen saturation are 97% on 9 L high flow nasal cannula. Achieving 750 mL on his incentive spirometry. Productive cough with garcia tenacious sputum. - Cardiovascular Details: Regular rhythm and rate. S1 and S2 present, negative for S3, gallop or murmur. Sternum is stable. Bedside telemetry showing normal sinus rhythm heart rate 75. Heart hugger is in place and he is demonstrating appropriate use. Trace edema to his bilateral lower extremities. Knee-high MESSI hose and sequential compression devices in place to his bilateral lower extremities. - Gastrointestinal Gastrointestinal Comment(s): Abdomen is soft, nontender and nondistended. Obese. No guarding or rigidity. Active bowel sounds all 4 abdominal quadrants. No organomegaly. Tolerating oral intake. - Genitourinary Genitourinary Comment(s): Voiding clear rose urine. - Integumentary Integumentary Comment(s): Skin is warm and dry. No clubbing or cyanosis is present. Midline sternal incision is clean, dry and approximated. No drainage or redness is present. Gauze dressing is clean, dry and intact. - Neurologic Neurologic: Present: CNII-XII intact - Musculoskeletal Musculoskeletal: Present: gait normal, generalized weakness, strength equal bilaterally - Psychiatric Psychiatric Comment(s): Flat affect. Psychiatric: Present: A&O x's 3, intact judgment & insight - Allied health notes Allied health notes reviewed: nursing - Labs CBC & Chem 7: 10/15/18 05:28 10/15/18 05:28 Labs: Abnormal Lab Results - Last 24 Hours (Table) 10/14/18 10/14/18 10/14/18 Range/Units 11:55 16:56 21:09 RBC (4.30-5.90) m/uL Hgb (13.0-17.5) gm/dL Hct (39.0-53.0) % BUN (9-20) mg/dL Glucose (74-99) mg/dL POC Glucose (mg/dL) 128 H 136 H 167 H (75-99) mg/dL 10/14/18 10/15/18 10/15/18 Range/Units 21:42 02:03 05:28 RBC 3.57 L (4.30-5.90) m/uL Hgb 10.5 L (13.0-17.5) gm/dL Hct 32.1 L (39.0-53.0) % BUN (9-20) mg/dL Glucose (74-99) mg/dL POC Glucose (mg/dL) 163 H 130 H (75-99) mg/dL 10/15/18 10/15/18 Range/Units 05:28 06:58 RBC (4.30-5.90) m/uL Hgb (13.0-17.5) gm/dL Hct (39.0-53.0) % BUN 53 H (9-20) mg/dL Glucose 136 H (74-99) mg/dL POC Glucose (mg/dL) 147 H (75-99) mg/dL - Imaging and Cardiology Chest x-ray: report reviewed, image reviewed Assessment and Plan Assessment: 1. Coronary artery disease with LAD system complex disease, status post coronary artery bypass grafting 2 vessels 2. Unstable angina 3. Preserved left ventricular function with an ejection fraction of 55-60% 4. Mild aortic valve stenosis 5. Hypertension 6. Hyperlipidemia 7. Morbid obesity 8. History of venous insufficiency 9. Spinal stenosis with chronic back pain 10. History of EtOH abuse, in remission 11. Prostate disorder 12. History of TIA with no residual effects 13. Osteoarthritis 14. Pernicious anemia 15. Newly diagnosed diabetes mellitus type 2 with admission hemoglobin A1c of 7.1% 16. Gastroesophageal reflux disease 17. Acute postoperative blood loss anemia, an expected outcome due to hemodilution and history of pernicious anemia 18. Postoperative paroxysmal atrial fibrillation, an unexpected outcome 19. Family history of premature coronary artery disease Plan: 1. Continue to maximize medical therapy with aspirin, statin, and beta car. Will increase beta car therapy as tolerated. 2. Continue to hold lisinopril until BUN and creatinine have normalized. 3. Encourage incentive spirometry use 10 times every hour while awake. Wean oxygen as tolerated. 4. Increase activity, ambulate as tolerated. PT/OT/cardiac rehab following. 5. Will monitor daily labs and x-rays. Electrolyte replacement per protocol. 6. Pain control with current medication regimen. 7. Insulin management per primary care service. Recommendations on insulin needed for preparation on anticipated discharge. 8. GI/DVT prophylaxis. 9. community health educator consulted for new diagnosis of type 2 diabetes mellitus and a hemoglobin A1c on admission of 7.1%. 10. Dr. Nowak's consult noted and appreciated. Anticipate discharge to health system rehab on 10/17/2018. 11. Discontinue [place] as patient complaining of feeling sleepy all of the time and unable to keep his eyes open. 12. More recommendations to follow based on patient's clinical course. Time with Patient: Greater than 30
[2018-10-15 10:25] LABS: Glucose,Whole Blood 142 mg/dL (75-99)
[2018-10-15 12:14] LABS: Glucose,Whole Blood 108 mg/dL (75-99)
--- NOTE | 2018-10-15 13:19 | P.PN ---
Subjective Progress Note Date: 10/15/18 This is a 73-year-old patient of Dr. Olmstead, with past medical history of hype rtension, hyperlipidemia, morbid obesity, basal cell skin cancer with resection, significant family history of coronary artery disease, pernicious anemia. Patient has been having intermittent chest pain radiating to his back, associated with shortness of breath. Patient came into the ED for evaluation, twelve-lead EKG showed normal sinus rhythm with nonspecific T-wave abnormality in the lead 3. Chest CT was completed and showed no evidence of aortic dissection, and showed ectatic ascending aorta and upper descending thoracic aorta at 3.4 cm. Showed bibasilar atelectasis, and multifocal patchy inferior lingular opacity representing atelectasis. Patient was evaluated by cardiology, patient had elevation of troponin, and was ruled in of non-ST elevated myocardial infarction. He underwent coronary angiography which showed mid LAD lesion of 80% that also involves the 2 diagonal branches, have a calcified right coronary artery without significant disease and nondominant circumflex. Ec hocardiogram showed EF of 55-60%, mild aortic sclerosis with mild aortic stenosis, mild tricuspid regurgitation, no pulmonary hypertension, trace pulmonic regurgitation. On 10/11/2018 patient underwent single-vessel bypass with a CHE to LAD off-pump. Patient is seen in intensive care unit following his surgery. He is sedated, intubated on mechanical ventilator, with the SIMV mode of ventilation, with a rate of 12, tidal and 500, FiO2 100% and PEEP of 10. The blood gases stop showed pO2 of 191, pCO2 54, and pH of 7.29, O2 was dropped down to 80%, and patient was switched to assist control mode of ventilation with a rate of 20, subsequent blood gases in 1 hour showed improvement in the ve ntilation, with pCO2 down to 47, and pH of 7.34, and pO2 was 88%. O2 sat remains borderline, at 90%, repeat blood gases were obtained, after FiO2 was cut back to 60% from 80%, and blood gas showed a pO2 of 60%, pCO2 43, and pH of 7.36 and FiO2 was back up to 80%. Lactated Ringer Jacinto at a rate of 50, nitroglycerin drip is at 5 mics per kilo per minute, insulin drip, Diprivan and has been weaned off, and patient is currently on Precedex in view of patient's chronic pain. Awake and alert, following commands. His chest x-ray has been reviewed, showing postoperative changes with bilateral atelectasis, and small pleural effusions, and a tiny 5% or less apical pneumothorax on the left. Gladis ent has a 2 mediastinal and left pleural chest tube, is hemodynamically stable, there has been 440 mL of serosanguineous output from the left and 200 mL from the mediastinal chest tubes, urine output is adequate. Is in sinus mechanism, with controlled rate. On today's evaluation of 10/12/2018, the patient is extubated earlier this morning to a BiPAP at a pressure of 10/5 cm of water and FiO2 of 60%. Note that the patient was having difficulties with oxygenation throughout the night. I gradually wean down the FiO2. The necessary vent changes were done. Ultimately this morning the patient was given a spontaneous breathing trial with a pressure support of 5 and PEEP of 5 and ultimately was extubated to a BiPAP. He was having significant amount of chest wall pain secondary to the surgery and the surgical wound site and the patient was given Toradol and morphine for pain control. He is hemodynamically stable. On today's evaluation he is awake and alert. He is off the Precedex. His cardiac output is at 8.2 with an index of 3.0. Pulmonary artery pressures are 32/19. His CVP is at 14. He is awake and alert and is following commands and answering questions appropriately. Chest tubes are in place. Chest x-ray shows typical postsurgical changes. Sternum stable clean and intact and the patient is small better pleural effusion and atelectatic changes in lung bases bilaterally. Output from the chest tube was also noted. On 10/13/2018 I'm seeing this patient for a follow-up. The patient is off the BiPAP. His postop day #2. Doing well. He is on high flow oxygen 6 L per minute nasal cannula. No chest pain. No cough sputum production or chest tightness or wheezing. His chest wall pain is under good control. Sternum stable clean and intact. Output from the mid descending tube is minimal and this will be discontinued. Output from the pleural tube is still high and this will be kept in place. Today's chest x-ray was noted. Danvers-Nicolle catheter removed. No other complaints. No altered mentation. No cardiac arrhythmias pain no fever or chills. He is using incentive spirometer. The patient's renal function is within normal limits. The patient's white cell count of 13.0. On 10/14/2018 I'm seeing this patient for follow-up. The patient is postop day #3. Doing well. No complaints. Resting comfortably in bed. Overnight the patient went into atrial fibrillation with rapid ventricular response. He was loaded with amiodarone. Subsequently converted to sinus bradycardia. Amiodarone was discontinued. The patient is on a lower dose of metoprolol for now. He remains hemodynamically stable. During the process the patient dropped his urine output and he sustained an acute kidney injury. Otherwise, his producing good urine output for now. His rhythm is sinus. We discount tubes have been removed and the pleural tubes were also removed today. Krueger catheter was discontinued yesterday. He is doing okay on the incentive spirometer and order of 800 mL. Chest x-ray shows increased vascular congestion and increased pulmonary vascular markings bilaterally. Sternal stable clean and intact.Chest pain and the pain is under good control for now. On 10/15/2018 patient is postop day #4. Doing well. Ambulating. Using incentive spirometer. A bit sleepy probably related to underlying intake of Palmer.. No chest pain. He is hemodynamically stable. Renal function is improved. Chest x-ray showing some atelectatic changes and small effusion the lung bases. Sternal wound is stable. Cardiac rhythm is sinus. He is complaining of lower back pain. He has had it for a long period of time. He is pulling approximately 800 mL on his incentive spirometer. He is on high flow oxygen still at 9 L that would be gradually weaned off. Objective - Vital Signs Vital signs: Vital Signs Temp 97.9 F 10/15/18 04:00 Pulse 66 10/15/18 12:11 Resp 16 10/15/18 04:00 BP 121/74 10/15/18 04:00 Pulse Ox 96 10/15/18 04:00 Intake & Output 10/14/18 10/15/18 10/15/18 18:59 06:59 18:59 Intake Total 24 236 Output Total 495 800 Balance -471 -800 236 Weight 161.9 kg 163.1 kg Intake: IV 24 Pressure Bags 24 Oral 236 Output: Chest Tube Drainage 20 Left 20 Urine 475 800 Other: Voiding Method Urinal Urinal # Voids 0 1 ABP, PAP, CO, CI - Last Documented Arterial Blood Pressure 127/51 Pulmonary Artery Pressure 34/15 Cardiac Output 10.6 Cardiac Index 3.9 - Exam - Constitutional General appearance: Present: cooperative, morbidly obese, no acute distress - Respiratory Details: Lung sounds essentially clear to his bilateral upper lobes, diminished to his bilateral bases. No wheezes rhonchi or crackles present. Respirations are symmetrical and nonlabored. Oxygen saturation are 97% on 9 L high flow nasal cannula. Achieving 750 mL on his incentive spirometry. Productive cough with garcia tenacious sputum. - Cardiovascular Details: Regular rhythm and rate. S1 and S2 present, negative for S3, gallop or murmur. Sternum is stable. Bedside telemetry showing normal sinus rhythm heart rate 75. Heart hugger is in place and he is demonstrating appropriate use. Trace edema to his bilateral lower extremities. Knee-high MESSI hose and sequential compression devices in place to his bilateral lower extremities. - Gastrointestinal Gastrointestinal Comment(s): Abdomen is soft, nontender and nondistended. Obese. No guarding or rigidity. Active bowel sounds all 4 abdominal quadrants. No organomegaly. Tolerating oral intake. - Genitourinary Genitourinary Comment(s): Voiding clear rose urine. - Integumentary Integumentary Comment(s): Skin is warm and dry. No clubbing or cyanosis is present. Midline sternal incision is clean, dry and approximated. No drainage or redness is present. Gauze dressing is clean, dry and intact. - Neurologic Neurologic: Present: CNII-XII intact - Musculoskeletal Musculoskeletal: Present: gait normal, generalized weakness, strength equal bilaterally - Psychiatric Psychiatric Comment(s): Flat affect. Psychiatric: Present: A&O x's 3, intact judgment & insight - Labs CBC & Chem 7: 10/15/18 05:28 10/15/18 05:28 Labs: Abnormal Lab Results - Last 24 Hours (Table) 10/14/18 10/14/18 10/14/18 Range/Units 16:56 21:09 21:42 RBC (4.30-5.90) m/uL Hgb (13.0-17.5) gm/dL Hct (39.0-53.0) % BUN (9-20) mg/dL Glucose (74-99) mg/dL POC Glucose (mg/dL) 136 H 167 H 163 H (75-99) mg/dL 10/15/18 10/15/18 10/15/18 Range/Units 02:03 05:28 05:28 RBC 3.57 L (4.30-5.90) m/uL Hgb 10.5 L (13.0-17.5) gm/dL Hct 32.1 L (39.0-53.0) % BUN 53 H (9-20) mg/dL Glucose 136 H (74-99) mg/dL POC Glucose (mg/dL) 130 H (75-99) mg/dL 10/15/18 10/15/18 10/15/18 Range/Units 06:58 10:23 12:12 RBC (4.30-5.90) m/uL Hgb (13.0-17.5) gm/dL Hct (39.0-53.0) % BUN (9-20) mg/dL Glucose (74-99) mg/dL POC Glucose (mg/dL) 147 H 142 H 108 H (75-99) mg/dL Assessment and Plan Plan: 1 coronary artery disease with complex LAD lesion and the patient has undergone bypass surgery with 2 vessel bypass. The patient is postop day #4 2 thoracotomy and the patient has been extubated and the patient has the mediastinal pleural chest tubes removed. The patient continues to have hypoxemia and currently on 9 L of oxygen by nasal cannula. This ongoing hypoxemia is an expected outcome of surgery as the patient has developed some postoperative atelectatic changes and some small effusion the lung bases bilaterally. Chest tubes have been ordered removed. 3 chest wall pain, surgically nature, expected outcome of surgery 4 mild aortic stenosis 5 hypertension 6 hyperlipidemia 7 morbid obesity with BMI 47.4 8 spinal stenosis chronic back pain 9 history of alcoholism currently in remission 10 BPH 11 history of TIA 12 osteoarthritis 13 atrial fibrillation with RVR, currently back to sinus 14 acute kidney injury , improving 15 back pain related to spinal stenosis Plan Continue aspirin. Continue bronchodilators. Continue using the incentive spirometer. Kept on the use of Palmer as the patient is getting sleepy and somnolent. Wean down the FiO2 as tolerated. Ambulate the patient the hallway. We'll continue to follow.
--- NOTE | 2018-10-15 14:26 | PN ---
PROGRESS NOTE DATE OF SERVICE: 10/15/2018 This 73-year-old gentleman who was admitted with acute mfr-DD-ezqlsfz-elevation myocardial infarction also had CABG. The patient is being closely monitored at this time. The patient also had transient atrial fibrillation paroxysmally. Otherwise, the most recent chest x-ray, which was reviewed personally by me, showed some cardiomegaly and some left pleural effusion and possibly atelectasis. No chest pain. No palpitations. No fever. The blood sugars are fairly controlled between 147 and 108. On exam, alert and oriented x3. Pulse 69, blood pressure 121/75, respiration 16, temperature 97.9, pulse ox 96% on 13 L high-flow nasal cannula. HEENT: Conjunctivae normal. NECK: No jugular venous distention. CARDIOVASCULAR SYSTEM: S1, S2 muffled. RESPIRATORY SYSTEM: Breath sounds diminished at the bases. Bilateral scattered rhonchi and crackles. ABDOMEN: Soft, non-tender. LEGS: No edema. No swelling. NERVOUS SYSTEM: No focal deficit. LABS: WBC 8.2, hemoglobin 10.5. Glucose noted. ASSESSMENT: 1. Acute psv-OK-tsnytnu-elevation myocardial infarction, present on admission, status post coronary artery bypass grafting, CHE to LAD for LAD stenosis. 2. Troponin elevated up to 0.056. 3. Ectatic aorta on the CT scan. 4. Paroxysmal atrial fibrillation . 5. Diabetes mellitus, type 2, new onset. 6. Gastroesophageal reflux disease. 7. History of cerebrovascular accident, transient ischemic attack. 8. Hyperlipidemia. 9. Hypertension. 10.History of degenerative joint disease. 11.History of transient ischemic attack. 12.History of pernicious anemia, on 3 injections. 13.Cholecystectomy. 14.Bowel resection. 15.Obesity with body mass index of 46.2. 16.Gait dysfunction. RECOMMENDATIONS AND DISCUSSION: I recommend to continue current medications, continue with the monitoring, symptomatic treatment. Continue with incentive spirometry. Continue with the bronchodilators. Ensure oxygenation. Otherwise, continue the rest of the medications. Closely follow with Cardiology and Cardiothoracic Surgery. Further recommendations to follow. MMKIARAL / FIONAN: [id number] / MTDD
[2018-10-15 17:16] LABS: Glucose,Whole Blood 167 mg/dL (75-99)
[2018-10-15] MEDS: TAMSULOSIN 0.4 MG CAP.ER.24H PO SCH (21:18)
[2018-10-15] MEDS: SENNOSIDES-DOCUSATE SODIUM 1 EACH TAB PO SCH (21:18)
[2018-10-15 21:23] LABS: Glucose,Whole Blood 154 mg/dL (75-99)
[2018-10-15] MEDS: INSULIN NPH 300 UNIT/3 ML VIAL SQ SCH (21:27)
[2018-10-16 02:14] LABS: Glucose,Whole Blood 117 mg/dL (75-99)
[2018-10-16] MEDS: INSULIN ASPART (NovoLOG) 100 UNIT/ML VIAL SQ SCH ×6 (02:29→21:48)
[2018-10-16] MEDS: HEPARIN SODIUM,PORCINE 5,000 UNIT/ML 1 ML VIAL SQ SCH (05:35)
[2018-10-16] MEDS: PANTOPRAZOLE 40 MG TABLET PO SCH ×2 (06:06→13:03)
[2018-10-16 06:28] LABS: Glucose,Whole Blood 128 mg/dL (75-99)
[2018-10-16 07:00] LABS: HCT 32.3 % (39.0-53.0); HGB 10.4 gm/dL (13.0-17.5); MCH 29.2 pg (25.0-35.0); MCHC 32.4 g/dL (31.0-37.0); MCV 90.2 fL (80.0-100.0); Mean Platelet Volume 7.4; Platelet Count 198 k/uL (150-450); RBC 3.58 m/uL (4.30-5.90); WBC 7.7 k/uL (3.8-10.6)
[2018-10-16] MEDS: IPRATROPIUM-ALBUTEROL 3 ML NEB INHALATION SCH ×4 (07:03→19:30)
[2018-10-16] MEDS: INSULN ASP PRT/INSULIN ASPART 100 UNIT/ML 10 ML VIAL SQ SCH (07:10)
[2018-10-16 07:19] LABS: Potassium 4.4 mmol/L (3.5-5.1)
--- NOTE | 2018-10-16 07:31 | XR ---
EXAMINATION TYPE: XR chest 1V portable DATE OF EXAM: 10/16/2018 COMPARISON: 10/15/2018 HISTORY: Post cardiac surgery TECHNIQUE: Single frontal view of the chest is obtained. FINDINGS: Median sternotomy wires. Heart is enlarged. Diffuse interstitial and vascular prominence. Small to moderate left and small right pleural effusions with adjacent opacity, slightly increased on the left. Left basilar chest tube. No appreciable pneumothorax. IMPRESSION: 1. Correlate for stable CHF with pulmonary vascular congestion. Small to moderate left and small righ t effusions with adjacent atelectasis and/or consolidation, which is stable.
[2018-10-16] MEDS: METOPROLOL TARTRATE 25 MG TAB PO SCH (08:02)
[2018-10-16] MEDS: AMIODARONE 200 MG TAB PO SCH ×2 (08:02→21:48)
[2018-10-16] MEDS: ASPIRIN 325 MG TAB PO SCH (08:02)
[2018-10-16] MEDS: CYANOCOBALAMIN 500 MCG TAB PO SCH (08:03)
[2018-10-16] MEDS: ATORVASTATIN 40 MG TAB PO SCH (08:03)
[2018-10-16] MEDS: CLOPIDOGREL 75 MG TAB PO SCH (08:04)
[2018-10-16] MEDS: MULTIVITAMINS, THERA 1 EACH TAB PO SCH ×2 (08:04→13:04)
[2018-10-16] MEDS: ACETAMINOPHEN TAB 500 MG TAB PO PRN ×3 (08:09→21:56)
--- NOTE | 2018-10-16 08:18 | P.PN ---
Subjective Progress Note Date: 10/16/18 Principal diagnosis: Coronary artery disease with LAD system complex disease, unstable angina, preserved left ventricular function with ejection fraction of 55-60%, mild aortic valve stenosis, newly diagnosed type 2 diabetes mellitus with an admission hemoglobin A1c of 7.1%, history of hypertension, hyperlipidemia, morbid obesity, basal cell skin cancer with resection, venous insufficiency, spinal stenosis with chronic with chronic pain, history of EtOH in remission, gastroesophageal reflux disease, prostate disorder, history of TIA with no residual effects, osteoarthritis, family history of premature coronary artery disease and pernicious anemia. POD #4 urgent all arterial double beating heart coronary artery bypass grafting using the left internal mammary artery sequentially in a side to side fashion to the second diagonal coronary artery, then to the left anterior descending coronary artery in an end-to-side fashion. Closure of the sternum with a combination of cable and plating system from [email or web address]. Intraoperative transesophageal echocardiogram and epi-aortic scanning. Intraoperative graft flow measurements using the [employer] system. Postoperative acute blood loss anemia, an expected outcome due to hemodilution and his history of pernicious anemia. Postoperative paroxysmal atrial fibrillation, an unexpected outcome. The patient is sitting up to the bedside chair on the cardiac stepdown unit. He is in no acute distress. He is complaining of feeling quite fatigued and tired. He remains complaining of lower back pain which she reports is chronic. Denies any complaints of shortness of breath. Remote telemetry is currently showing atrial fibrillation with RVR heart rate in the 140s. He is tolerating oral intake. Oxygen saturations are 93% on 9 L high flow nasal cannula. Achieving 1000 mL on his incentive spirometry. He reports that he ambulated twice yesterday with help from nursing and physical therapy. Objective - Vital Signs Vital signs: Vital Signs Temp 98.5 F 10/16/18 04:00 Pulse 77 10/16/18 07:13 Resp 18 10/16/18 04:00 BP 140/66 10/16/18 04:00 Pulse Ox 93 L 10/16/18 04:00 Intake & Output 10/15/18 10/16/18 10/16/18 18:59 06:59 18:59 Intake Total 236 Output Total 300 Balance 236 -300 Weight 161.3 kg Intake: Oral 236 Output: Urine 300 Other: Voiding Method Urinal Urinal # Voids 2 1 # Bowel Movements 1 ABP, PAP, CO, CI - Last Documented Arterial Blood Pressure 127/51 Pulmonary Artery Pressure 34/15 Cardiac Output 10.6 Cardiac Index 3.9 - Constitutional General appearance: Present: cooperative, morbidly obese, no acute distress - Respiratory Details: Lung sounds essentially clear to his bilateral upper lobes, diminished to his bilateral bases with few scattered crackles to his right lower lobe. Respirations are symmetrical and nonlabored. Oxygen saturation are 93% on 9 L high flow nasal cannula. Achieving 1000 mL on his incentive spirometry. - Cardiovascular Details: Irregular rhythm consistent with atrial fibrillation with tachycardic rate. S1 and S2 present, negative for S3, gallop or murmur. Sternum is stable. Remote telemetry showing atrial fibrillation with RVR heart rate in the 140s. Trace edema present to his bilateral lower extremities. Sequential compression devices in place to his bilateral lower extremities. Heart hugger is in place and demonstrating appropriate use. - Gastrointestinal Gastrointestinal Comment(s): Abdomen is soft, nontender and nondistended. Active bowel sounds all 4 abdominal quadrants. Obese. No guarding or rigidity. No organomegaly. - Genitourinary Genitourinary Comment(s): Voiding clear rose urine. - Integumentary Integumentary Comment(s): Skin is warm and dry. No clubbing or cyanosis is present. Midline sternal inci lion is clean, dry and approximated. No drainage or redness present. Gauze dressing is clean, dry and in place. - Neurologic Neurologic: Present: CNII-XII intact - Musculoskeletal Musculoskeletal: Present: gait normal, generalized weakness, strength equal bilaterally - Psychiatric Psychiatric Comment(s): Flat affect. Psychiatric: Present: A&O x's 3, intact judgment & insight - Allied health notes Allied health notes reviewed: nursing - Labs CBC & Chem 7: 10/16/18 06:13 10/16/18 06:13 Labs: Abnormal Lab Results - Last 24 Hours (Table) 10/15/18 10/15/18 10/15/18 Range/Units 10:23 12:12 17:14 RBC (4.30-5.90) m/uL Hgb (13.0-17.5) gm/dL Hct (39.0-53.0) % BUN (9-20) mg/dL Glucose (74-99) mg/dL POC Glucose (mg/dL) 142 H 108 H 167 H (75-99) mg/dL 10/15/18 10/16/18 10/16/18 Range/Units 21:23 02:11 06:13 RBC 3.58 L (4.30-5.90) m/uL Hgb 10.4 L (13.0-17.5) gm/dL Hct 32.3 L (39.0-53.0) % BUN (9-20) mg/dL Glucose (74-99) mg/dL POC Glucose (mg/dL) 154 H 117 H (75-99) mg/dL 10/16/18 10/16/18 Range/Units 06:13 06:27 RBC (4.30-5.90) m/uL Hgb (13.0-17.5) gm/dL Hct (39.0-53.0) % BUN 37 H (9-20) mg/dL Glucose 122 H (74-99) mg/dL POC Glucose (mg/dL) 128 H (75-99) mg/dL - Imaging and Cardiology Chest x-ray: report reviewed, image reviewed Assessment and Plan Assessment: 1. Coronary artery disease with LAD system complex disease, status post coronary artery bypass grafting 2 vessels 2. Unstable angina 3. Preserved left ventricular function with an ejection fraction of 55-60% 4. Mild aortic valve stenosis 5. Hypertension 6. Hyperlipidemia 7. Morbid obesity 8. History of venous insufficiency 9. Spinal stenosis with chronic back pain 10. History of EtOH abuse, in remission 11. Prostate disorder 12. History of TIA with no residual effects 13. Osteoarthritis 14. Pernicious anemia 15. Newly diagnosed diabetes mellitus type 2 with admission hemoglobin A1c of 7.1% 16. Gastroesophageal reflux disease 17. Acute postoperative blood loss anemia, an expected outcome due to hemodilution and history of pernicious anemia 18. Postoperative paroxysmal atrial fibrillation, an unexpected outcome 19. Family history of premature coronary artery disease Plan: 1. Continue to maximize medical therapy with low-dose aspirin, statin, and beta car. Will increase beta car therapy as tolerated. 2. We will start Cozaar 25 mg by mouth daily. 3. Encourage incentive spirometry use 10 times every hour while awake. Wean oxygen as tolerated. 4. Increase activity, ambulate as tolerated. PT/OT/cardiac rehab following. 5. Will monitor daily labs and chest x-rays. Electrolyte replacement per protocol. 6. Pain control with current medication regimen. 7. Insulin management per primary care service. Recommendations on insulin needed for preparation on anticipated discharge. 8. GI/DVT prophylaxis. 9. family living educator consulted for new diagnosis of type 2 diabetes mellitus and a hemoglobin A1c on admission of 7.1%. 10. Discontinue full strength aspirin and start aspirin 81 mg by mouth daily, discontinue Plavix and heparin subcu. We will start Eliquis 5 mg by mouth twice a day starting today. 11. Continue amiodarone 400 mg by mouth twice a day for atrial fibrillation prophylaxis. Give amiodarone 150 mg IV bolus 1 now. 12. More recommendations to follow based on patient's clinical course. Time with Patient: Greater than 30
[2018-10-16] MEDS: DEXTROSE 5% IN WATER 100 ML with AMIODARONE 150 MG IV PRN (09:08)
--- NOTE | 2018-10-16 09:51 | PN ---
PROGRESS NOTE Mr. Pimentel is a 73-year-old male who presented with symptoms of chest pain and unstable angina with acute coronary syndrome, underwent cardiac catheterization, was found to have critical stenosis involving the LAD and diagonal branch, underwent coronary artery bypass grafting. He has been feeling tired and short of breath. He had an episode of atrial fibrillation this morning. He has no chest pain. No dizziness. No palpitation. He has not been ambulating as much. He seems to be sleepy. He was started on Eliquis 5 mg twice a day. He is on aspirin once a day. He is on insulin, losartan 25 mg daily and metoprolol tartrate 25 mg twice a day. He was given amiodarone this morning. PHYSICAL EXAMINATION: Blood pressure 140/60 with a heart rate in the 120s. Lungs crackles at the bases with decreased breath sounds on the left side. Heart irregularly irregular S1, S2. No S3 with a systolic murmur. No diastolic murmur. ABDOMEN: Soft, obese, nontender. EXTREMITIES +1 edema. LAB DATA: Potassium 4.4, hemoglobin 10.4, BUN and creatinine 37 and 1.03. IMPRESSION: 1. Status post coronary artery bypass grafting. 2. Paroxysmal atrial fibrillation. 3. Obesity. 4. Hypertension. 5. Hyperlipidemia. RECOMMENDATION: From the cardiac standpoint, the patient has been started on amiodarone, hoping to restore sinus mechanism. Anticoagulation has been initiated. His Plavix is on hold and we will continue incentive spirometry and increasing physical activity and depending on his progress, further recommendations will be made. MMODL / IJN: [id number] /
--- NOTE | 2018-10-16 09:51 | US ---
EXAMINATION TYPE: US chest DATE OF EXAM: 10/16/2018 COMPARISON: CXR CLINICAL HISTORY: Pleural effusion. Pleural effusions TECHNIQUE: Targeted ultrasound of the posterior lower bilateral hemithoraces EXAM MEASUREMENTS: Right Pleural Effusion pocket size: 1.8 cm Left Pleural Effusion pocket size: 1.4 cm Right side NOT marked for possible thoracentesis outside the dept. Left side NOT marked for possible thoracentesis outside the dept. Pulmonologists are able to review the images in the patient?s EMR. IMPRESSIONS: Small bilateral pleural effusions
[2018-10-16] MEDS: ASPIRIN 81 MG PO SCH (10:30)
[2018-10-16] MEDS: APIXABAN 5 MG TAB PO SCH ×2 (10:30→21:48)
[2018-10-16] MEDS ORDERED: METOPROLOL TARTRATE 50 MG TAB PO STA (10:30)
[2018-10-16] MEDS: CHOLECALCIFEROL 1,000 UNIT TAB PO SCH ×2 (10:30→13:03)
[2018-10-16] MEDS: LOSARTAN 25 MG TAB PO SCH (10:30)
[2018-10-16 11:43] LABS: Glucose,Whole Blood 104 mg/dL (75-99)
--- NOTE | 2018-10-16 12:42 | P.PN ---
Subjective Progress Note Date: 10/16/18 Principal diagnosis: Coronary artery disease status post 2 vessel bypass On 10/16/2018 patient seen in follow-up on selective care unit. He is resting comfortably in bed, currently on 9 L per high flow nasal cannula, denies any worsening dyspnea, lung sounds are positive for some scattered rales bilaterally, diminished breath sounds at the bases, patient's incentive spirometer effort remains suboptimal, only 750, occasionally 1000 ML. His chest x-ray has been reviewed showing small bilateral pleural effusions. Chest tubes have been discontinued, patient is voiding, and he is in negative fluid balance. Today's labs have been reviewed, showing white blood cell, 7.7, hemoglobin of 10.4, electrolytes and renal profile were unremarkable, Objective - Vital Signs Vital signs: Vital Signs Temp 98.5 F 10/16/18 04:00 Pulse 79 10/16/18 11:10 Resp 18 10/16/18 04:00 BP 140/66 10/16/18 04:00 Pulse Ox 93 L 10/16/18 04:00 Intake & Output 10/15/18 10/16/18 10/16/18 18:59 06:59 18:59 Intake Total 236 180 Output Total 300 Balance 236 -300 180 Weight 161.3 kg Intake: Oral 236 180 Output: Urine 300 Other: Voiding Method Urinal Urinal # Voids 2 1 1 # Bowel Movements 1 ABP, PAP, CO, CI - Last Documented Arterial Blood Pressure 127/51 Pulmonary Artery Pressure 34/15 Cardiac Output 10.6 Cardiac Index 3.9 - Exam GENERAL EXAM: Alert, pleasant, obese 73-year-old white male, on 9 L of oxygen per high flow nasal cannula comfortable in no apparent distress. HEAD: Normocephalic/atraumatic. EYES: Normal reaction of pupils, equal size. Conjunctiva pink, sclera white. NOSE: Clear with pink turbinates. THROAT: No erythema or exudates. NECK: No masses, no JVD, no thyroid enlargement, no adenopathy. CHEST: No chest wall deformity. Symmetrical expansion. Mid sternal incision is clean dry and intact, chest tube sites are clean dry and intact, covered with dressings LUNGS: Equal air entry with diffuse bilateral crackles, and diminished breath sounds at the bases CVS: Regular rate and rhythm, normal S1 and S2, no gallops, no murmurs, no rubs ABDOMEN: Soft, nontender. No hepatosplenomegaly, normal bowel sounds, no guarding or rigidity. EXTREMITIES: No clubbing, no edema, no cyanosis, 2+ pulses and upper and lower extremities. MUSCULOSKELETAL: Muscle strength and tone normal. SPINE: No scoliosis or deformity SKIN: No rashes CENTRAL NERVOUS SYSTEM: Alert and oriented -3. No focal deficits, tone is normal in all 4 extremities. PSYCHIATRIC: Alert and oriented -3. Appropriate affect. Intact judgment and insight. - Labs CBC & Chem 7: 10/16/18 06:13 10/16/18 06:13 Labs: Abnormal Lab Results - Last 24 Hours (Table) 10/15/18 10/15/18 10/16/18 Range/Units 17:14 21:23 02:11 RBC (4.30-5.90) m/uL Hgb (13.0-17.5) gm/dL Hct (39.0-53.0) % BUN (9-20) mg/dL Glucose (74-99) mg/dL POC Glucose (mg/dL) 167 H 154 H 117 H (75-99) mg/dL 10/16/18 10/16/18 10/16/18 Range/Units 06:13 06:13 06:27 RBC 3.58 L (4.30-5.90) m/uL Hgb 10.4 L (13.0-17.5) gm/dL Hct 32.3 L (39.0-53.0) % BUN 37 H (9-20) mg/dL Glucose 122 H (74-99) mg/dL POC Glucose (mg/dL) 128 H (75-99) mg/dL 10/16/18 Range/Units 11:41 RBC (4.30-5.90) m/uL Hgb (13.0-17.5) gm/dL Hct (39.0-53.0) % BUN (9-20) mg/dL Glucose (74-99) mg/dL POC Glucose (mg/dL) 104 H (75-99) mg/dL Assessment and Plan Plan: Assessment: #1. Coronary artery disease, status post 1 vessel coronary artery bypass with CHE to LAD, postoperative day 7 #2. Non-ST elevated myocardial infarction #3. Routine postoperative ventilator management #4. Morbid obesity #5. Hypertension #6. Hyperlipidemia #7. History of CVA/TIA #8. GERD/reflux #9. History of pernicious anemia on monthly injections #10. History of bowel resection related to bowel obstruction #11. Skin cancer, basal, with resection #12. Never smoker #13. History of EtOH abuse, currently in remission #14. Chronic back pain Plan: Continue current medical treatment, encourage deep breathing and coughing, chest x-ray has been reviewed, showing bilateral pleural effusions, weaning FiO2, e ncouraged the patient to sit up in the chair, ambulate. No other acute events overnight. Has been started on oral Eliquis, and metoprolol. Cardiology following, patient did have a short run of atrial fibrillation this morning, currently back in sinus rhythm. I performed a history & physical examination of the patient and discussed their management with my nurse practitioner, Hanny Ahmadi. I reviewed the nurse practitioner's note and agree with the documented findings and plan of care. Radha ng sounds are positive for clear diminished breath sounds. The findings and the impression was discussed with the patient. I attest to the documentation by the nurse practitioner. Time with Patient: Less than 30
[2018-10-16] MEDS: NITROGLYCERIN OINT 1 INCH/GM PACKET TOPICAL SCH ×2 (13:02→13:03)
[2018-10-16] MEDS: METOPROLOL TARTRATE 12.5 MG TAB PO SCH (13:04)
[2018-10-16] MEDS: MUPIROCIN 2% OINT 22 GM TUBE NASAL SCH (13:04)
[2018-10-16] MEDS: LACTATED RINGERS 1,000 ML IV SCH (13:05)
[2018-10-16] MEDS ORDERED: CYANOCOBALAMIN 1,000 MCG/ML 1 ML VIAL IM SCH (15:00)
[2018-10-16] MEDS: MAGNESIUM HYDROXIDE 2,400 MG/10 ML CUP PO PRN (16:26)
[2018-10-16 17:23] LABS: Glucose,Whole Blood 132 mg/dL (75-99)
--- NOTE | 2018-10-16 19:29 | PN ---
PROGRESS NOTE DATE OF SERVICE: 10/16/2018. This 73-year-old gentleman admitted after CAD, CABG is being closely monitored at this time. The patient complains of weakness. Patient has pleural effusion. Patient also had paroxysmal atrial fibrillation as well. The chest ultrasound showed only small bilateral pleural effusions. Patient closely monitored. No chest pain. No palpitations. No fever. Blood sugars are controlled at 11, 120, 104. EXAM: Alert and oriented x3. Pulse is 142, regular. Blood pressure is 160/92, respiration 16, temperature 98.1, pulse ox 91 percent on 9 L. HEENT: Conjunctivae normal. NECK: No jugular venous distention. CARDIOVASCULAR: S1, S2 muffled. RESPIRATORY: Breath sounds diminished in the bases. A few scattered rhonchi. ABDOMEN: Soft, nontender. No mass palpable. LEGS: No edema. NERVOUS SYSTEM: No focal deficits. LAB STUDIES: WBC 7.7, hemoglobin 10.4, glucose 122. ASSESSMENT: 1. Acute non ST elevation myocardial infarction present on admission, status post CABG, CHE to LAD for LAD stenosis. 2. Troponin elevated up to 0.056. 3. ectatic aorta on the CT scan. 4. Paroxysmal atrial fibrillation. 5. Diabetes mellitus type 2 new onset. 6. Gastroesophageal reflux disease. 7. History of cerebrovascular accident, transient ischemic attack. 8. Hyperlipidemia. 9. Hypertension. 10.History of degenerative joint disease. 11.History of transient ischemic attack. 12.History of pernicious anemia on 3 injections. 13.History of cholecystectomy. 14.History of bowel resection. 15.Obesity with body mass index 46.2. 16.Gait dysfunction. RECOMMENDATIONS AND DISCUSSION: I recommend to continue with current medications, monitor and symptomatic treatment. Otherwise at this time I recommend continue with incentive spirometry and monitor. Continue with blood sugars. Monitor blood sugars closely. Continue with insulin. Monitor blood sugars. Otherwise, closely follow with cardiothoracic surgery. Further recommendations to follow. MMODL / IJN: [id number] /
[2018-10-16 20:40] LABS: Glucose,Whole Blood 175 mg/dL (75-99)
[2018-10-16] MEDS: INSULIN NPH 300 UNIT/3 ML VIAL SQ SCH (21:48)
[2018-10-16] MEDS: TAMSULOSIN 0.4 MG CAP.ER.24H PO SCH (21:48)
[2018-10-16] MEDS: METOPROLOL TARTRATE 50 MG TAB PO SCH (21:48)
[2018-10-16] MEDS: SENNOSIDES-DOCUSATE SODIUM 1 EACH TAB PO SCH (21:48)
[2018-10-16] MEDS ORDERED: METOPROLOL TARTRATE 25 MG TAB PO STA (22:56)
[2018-10-17 02:04] LABS: Glucose,Whole Blood 102 mg/dL (75-99)
[2018-10-17] MEDS: INSULIN ASPART (NovoLOG) 100 UNIT/ML VIAL SQ SCH ×6 (02:49→21:42)
[2018-10-17] MEDS: ACETAMINOPHEN TAB 500 MG TAB PO PRN ×3 (04:07→18:22)
[2018-10-17 06:11] LABS: Glucose,Whole Blood 105 mg/dL (75-99)
[2018-10-17 06:34] LABS: Glucose,Whole Blood 103 mg/dL (75-99)
[2018-10-17] MEDS: PANTOPRAZOLE 40 MG TABLET PO SCH (06:35)
[2018-10-17] MEDS: INSULN ASP PRT/INSULIN ASPART 100 UNIT/ML 10 ML VIAL SQ SCH (07:07)
--- NOTE | 2018-10-17 07:22 | XR ---
EXAMINATION TYPE: XR chest 1V portable DATE OF EXAM: 10/17/2018 Comparison: 10/16/2018 Clinical History: 73-year-old male Postoperative CABG Findings: Leftward patient rotation altered normal cardiac mediastinal contours. Median sternotomy wires and fi xation plate are present with post-CABG clips in the mediastinum. Heart remains mildly enlarged. Cont inued moderate left and small right effusions with adjacent opacities. Impression: Correlate for continued CHF with pulmonary vascular congestion. Stable to slightly increased moderate left and small right effusions with adjacent atelectasis and/or consolidation.
[2018-10-17] MEDS: IPRATROPIUM-ALBUTEROL 3 ML NEB INHALATION SCH ×4 (07:43→19:39)
[2018-10-17] MEDS ORDERED: FUROSEMIDE 10 MG/ML 4 ML VIAL IV STA (08:07)
[2018-10-17 08:15] LABS: HCT 31.8 % (39.0-53.0); HGB 10.6 gm/dL (13.0-17.5); MCH 29.5 pg (25.0-35.0); MCHC 33.4 g/dL (31.0-37.0); MCV 88.3 fL (80.0-100.0); Mean Platelet Volume 7.8; Platelet Count 213 k/uL (150-450); RDW 14.1 % (11.5-15.5); WBC 9.3 k/uL (3.8-10.6)
[2018-10-17 08:27] LABS: African American GFR (CKD) >90 (>60 ml/min/1.73 sqM); Anion Gap 8 mmol/L; Blood Urea Nitrogen 27 mg/dL (9-20); Carbon Dioxide 27 mmol/L (22-30); Chloride 104 mmol/L (98-107); Glucose 146 mg/dL (74-99); Sodium 139 mmol/L (137-145)
[2018-10-17 08:35] LABS: Potassium 4.6 mmol/L (3.5-5.1)
--- NOTE | 2018-10-17 08:58 | P.PN ---
Subjective Progress Note Date: 10/17/18 Principal diagnosis: Coronary artery disease with LAD system complex disease, unstable angina, preserved left ventricular function with ejection fraction of 55-60%, mild aortic valve stenosis, newly diagnosed type 2 diabetes mellitus with an admission hemoglobin A1c of 7.1%, history of hypertension, hyperlipidemia, morbid obesity, basal cell skin cancer with resection, venous insufficiency, spinal stenosis with chronic with chronic pain, history of EtOH in remission, gastroesophageal reflux disease, prostate disorder, history of TIA with no residual effects, osteoarthritis, family history of premature coronary artery disease and pernicious anemia. POD #5 urgent all arterial double beating heart coronary artery bypass grafting using the left internal mammary artery sequentially in a side to side fashion to the second diagonal coronary artery, then to the left anterior descending coronary artery in an end-to-side fashion. Closure of the sternum with a combination of cable and plating system from [employer]. Intraoperative transesophageal echocardiogram and epi-aortic scanning. Intraoperative graft flow measurements using the [employer] system. Postoperative acute blood loss anemia, an expected outcome due to hemodilution and his history of pernicious anemia. Postoperative paroxysmal atrial fibrillation, an unexpected outcome. The patient is up ambulating in his room on the cardiac stepdown unit. He is in no acute distress. He reports that he feels somewhat improved today as he had his B12 injection yesterday. Remains complaining of lower back pain which he reports is chronic. Denies any complaints of shortness of breath. Oxygen saturations are 96% on 5 L nasal cannula. Achieving 1000 mL on his incentive spirometry. Remote telemetry showing normal sinus rhythm heart rate 77, no further episodes of paroxysmal atrial fibrillation throughout the night. He reports he ambulated twice in the cardiac stepdown hallway with minimal assistance. Objective - Vital Signs Vital signs: Vital Signs Temp 98 F 10/17/18 04:00 Pulse 76 10/17/18 07:55 Resp 20 10/17/18 04:00 BP 153/89 10/17/18 04:00 Pulse Ox 96 10/17/18 04:00 Intake & Output 10/16/18 10/17/18 10/17/18 18:59 06:59 18:59 Intake Total 540 240 Balance 540 240 Weight 160.6 kg Intake: Oral 540 240 Other: Voiding Method Toilet Toilet Urinal Urinal # Voids 2 2 1 # Bowel Movements 1 2 1 ABP, PAP, CO, CI - Last Documented Arterial Blood Pressure 127/51 Pulmonary Artery Pressure 34/15 Cardiac Output 10.6 Cardiac Index 3.9 - Constitutional General appearance: Present: cooperative, morbidly obese, no acute distress - Respiratory Details: Lung sounds diminished to his bilateral bases. Scattered expiratory wheezes. Respirations are symmetrical and nonlabored. Oxygen saturation are 96% on 5 L nasal cannula. Achieving 1000 mL on his incentive spirometry. - Cardiovascular Details: Regular rhythm and rate. S1 and S2 present, negative for S3, gallop or murmur. Remote telemetry showing normal sinus rhythm heart rate 77. Sternum is stable. Heart hugger in place and demonstrating appropriate use. Trace edema to his bilateral lower extremities. Knee-high Jesus wraps and sequential compression devices in place to his bilateral lower extremities. - Gastrointestinal Gastrointestinal Comment(s): Abdomen is soft, nontender and nondistended. Active bowel sounds all 4 abdominal quadrants. Obese. No guarding or rigidity. No organomegaly. Bowel movement yesterday 10/16/2018. - Genitourinary Genitourinary Comment(s): Voiding clear yellow urine. - Integumentary Integumentary Comment(s): Skin is warm and dry. No clubbing or cyanosis is present. Midline sternal incision is clean, dry and approximated. No drainage or redness is present. Midline sternal dressing is clean, dry and intact. - Neurologic Neurologic: Present: CNII-XII intact - Musculoskeletal Musculoskeletal: Present: gait normal, generalized weakness, strength equal bilaterally - Psychiatric Psychiatric: Present: A&O x's 3, appropriate affect, intact judgment & insight - Allied health notes Allied health notes reviewed: nursing - Labs CBC & Chem 7: 10/17/18 07:45 10/17/18 07:45 Labs: Abnormal Lab Results - Last 24 Hours (Table) 10/16/18 10/16/18 10/16/18 Range/Units 11:41 17:22 20:38 RBC (4.30-5.90) m/uL Hgb (13.0-17.5) gm/dL Hct (39.0-53.0) % BUN (9-20) mg/dL Glucose (74-99) mg/dL POC Glucose (mg/dL) 104 H 132 H 175 H (75-99) mg/dL 07/11/2810/17/18 10/17/18 Range/Units 02:02 06:09 06:32 RBC (4.30-5.90) m/uL Hgb (13.0-17.5) gm/dL Hct (39.0-53.0) % BUN (9-20) mg/dL Glucose (74-99) mg/dL POC Glucose (mg/dL) 102 H 105 H 103 H (75-99) mg/dL 10/17/18 10/17/18 Range/Units 07:45 07:45 RBC 3.60 L (4.30-5.90) m/uL Hgb 10.6 L (13.0-17.5) gm/dL Hct 31.8 L (39.0-53.0) % BUN 27 H (9-20) mg/dL Glucose 146 H (74-99) mg/dL POC Glucose (mg/dL) (75-99) mg/dL - Imaging and Cardiology Chest x-ray: report reviewed, image reviewed Assessment and Plan Assessment: 1. Coronary artery disease with LAD system complex disease, status post coronary artery bypass grafting 2 vessels 2. Unstable angina 3. Preserved left ventricular function with an ejection fraction of 55-60% 4. Mild aortic valve stenosis 5. Hypertension 6. Hyperlipidemia 7. Morbid obesity 8. History of venous insufficiency 9. Spinal stenosis with chronic back pain 10. History of EtOH abuse, in remission 11. Prostate disorder 12. History of TIA with no residual effects 13. Osteoarthritis 14. Pernicious anemia 15. Newly diagnosed diabetes mellitus type 2 with admission hemoglobin A1c of 7.1% 16. Gastroesophageal reflux disease 17. Acute postoperative blood loss anemia, an expected outcome due to hemodilution and history of pernicious anemia 18. Postoperative paroxysmal atrial fibrillation, an unexpected outcome 19. Family history of premature coronary artery disease Plan: 1. Continue to maximize medical therapy with low-dose aspirin, statin, and beta car. Metoprolol tartrate was increased by cardiology yesterday to 50 mg by mouth twice a day. 2. Continue Cozaar 25 mg by mouth daily. 3. Encourage incentive spirometry use 10 times every hour while awake. Wean oxygen as tolerated. 4. Increase activity, ambulate as tolerated. PT/OT/cardiac rehab following. 5. Will monitor daily labs and chest x-rays. Electrolyte replacement per protocol. 6. Pain control with current medication regimen. 7. Insulin management per primary care service. Recommendations on insulin needed for preparation for anticipated discharge. 8. GI/DVT prophylaxis. 9. informatics educator consulted and following for new diagnosis of type 2 diabetes mellitus, hemoglobin A1c on admission of 7.1%. 10. Continue Eliquis 5 mg by mouth twice a day starting today. 11. Continue amiodarone 400 mg by mouth twice a day for 1 week, then decreased amiodarone 200 mg by mouth twice a day 1 week, then decreased amiodarone 200 mg by mouth daily 1 week for atrial fibrillation prophylaxis. 12. Chest physiotherapy ordered today and he is 1200 mg by mouth every 12 hours for complaints of coughing tenacious garcia sputum. 13. Anticipate discharge to inpatient rehab today at [facility]. 14. More recommendations to follow based on patient's clinical course. Time with Patient: Greater than 30
[2018-10-17] MEDS: AMIODARONE 200 MG TAB PO SCH ×2 (09:53→20:57)
[2018-10-17] MEDS: APIXABAN 5 MG TAB PO SCH ×2 (09:53→20:57)
[2018-10-17] MEDS: ASPIRIN 81 MG PO SCH (09:53)
[2018-10-17] MEDS: CHOLECALCIFEROL 1,000 UNIT TAB PO SCH (09:54)
[2018-10-17] MEDS: ATORVASTATIN 40 MG TAB PO SCH (09:54)
[2018-10-17] MEDS: LOSARTAN 25 MG TAB PO SCH (09:55)
[2018-10-17] MEDS: METOPROLOL TARTRATE 50 MG TAB PO SCH ×2 (09:55→20:58)
[2018-10-17] MEDS: guaiFENesin 600 MG TABLET.ER PO SCH ×2 (09:55→20:58)
[2018-10-17] MEDS: MULTIVITAMINS, THERA 1 EACH TAB PO SCH (09:55)
[2018-10-17 12:10] LABS: Glucose,Whole Blood 90 mg/dL (75-99)
--- NOTE | 2018-10-17 12:32 | P.PN ---
Subjective Progress Note Date: 10/17/18 Principal diagnosis: Coronary artery disease status post 2 vessel bypass On 10/16/2018 patient seen in follow-up on selective care unit. He is resting comfortably in bed, currently on 9 L per high flow nasal cannula, denies any worsening dyspnea, lung sounds are positive for some scattered rales bilaterally, diminished breath sounds at the bases, patient's incentive spirometer effort remains suboptimal, only 750, occasionally 1000 ML. His chest x-ray has been reviewed showing small bilateral pleural effusions. Chest tubes have been discontinued, patient is voiding, and he is in negative fluid balance. Today's labs have been reviewed, showing white blood cell, 7.7, hemoglobin of 10.4, electrolytes and renal profile were unremarkable. On 10/17/2018 patient seen in follow-up on selective care unit. He is resting in bed, no acute distress, currently down to 5 L of oxygen his pulse ox is 96%, lung sounds are diminished, with some scattered rales, today's chest x-ray has been reviewed showing moderate left and small right pleural effusions, with adjacent atelectasis, over yesterday's ultrasound of the chest did not reveal significant fluid pockets on either side, left-sided showed 1.4 cm pocket, and the right side showed 1.8 cm pocket. Patient was given a dose of IV Lasix today. He remains in sinus mechanism, cardiology following, and patient is on oral amiodarone, and oral anticoagulation, oral metoprolol. Objective - Vital Signs Vital signs: Vital Signs Temp 98 F 10/17/18 04:00 Pulse 80 10/17/18 11:23 Resp 20 10/17/18 04:00 BP 153/89 10/17/18 04:00 Pulse Ox 96 10/17/18 04:00 Intake & Output 10/16/18 10/17/18 10/17/18 18:59 06:59 18:59 Intake Total 540 240 Balance 540 240 Weight 160.6 kg Intake: Oral 540 240 Other: Voiding Method Toilet Toilet Urinal Urinal # Voids 2 2 1 # Bowel Movements 1 2 1 ABP, PAP, CO, CI - Last Documented Arterial Blood Pressure 127/51 Pulmonary Artery Pressure 34/15 Cardiac Output 10.6 Cardiac Index 3.9 - Exam GENERAL EXAM: Alert, pleasant, obese 73-year-old white male, on 5 L of oxygen per high flow nasal cannula comfortable in no apparent distress. HEAD: Normocephalic/atraumatic. EYES: Normal reaction of pupils, equal size. Conjunctiva pink, sclera white. NOSE: Clear with pink turbinates. THROAT: No erythema or exudates. NECK: No masses, no JVD, no thyroid enlargement, no adenopathy. CHEST: No chest wall deformity. Symmetrical expansion. Mid sternal incision is clean dry and intact, chest tube sites are clean dry and intact, covered with dressings LUNGS: Equal air entry with diffuse bilateral crackles, and diminished breath sounds at the bases CVS: Regular rate and rhythm, normal S1 and S2, no gallops, no murmurs, no rubs ABDOMEN: Soft, nontender. No hepatosplenomegaly, normal bowel sounds, no guarding or rigidity. EXTREMITIES: No clubbing, no edema, no cyanosis, 2+ pulses and upper and lower extremities. MUSCULOSKELETAL: Muscle strength and tone normal. SPINE: No scoliosis or deformity SKIN: No rashes CENTRAL NERVOUS SYSTEM: Alert and oriented -3. No focal deficits, tone is normal in all 4 extremities. PSYCHIATRIC: Alert and oriented -3. Appropriate affect. Intact judgment and insight. - Labs CBC & Chem 7: 10/17/18 07:45 10/17/18 07:45 Labs: Abnormal Lab Results - Last 24 Hours (Table) 10/16/18 10/16/18 10/17/18 Range/Units 17:22 20:38 02:02 RBC (4.30-5.90) m/uL Hgb (13.0-17.5) gm/dL Hct (39.0-53.0) % BUN (9-20) mg/dL Glucose (74-99) mg/dL POC Glucose (mg/dL) 132 H 175 H 102 H (75-99) mg/dL 10/17/18 10/17/18 10/17/18 Range/Units 06:09 06:32 07:45 RBC 3.60 L (4.30-5.90) m/uL Hgb 10.6 L (13.0-17.5) gm/dL Hct 31.8 L (39.0-53.0) % BUN (9-20) mg/dL Glucose (74-99) mg/dL POC Glucose (mg/dL) 105 H 103 H (75-99) mg/dL 10/17/18 Range/Units 07:45 RBC (4.30-5.90) m/uL Hgb (13.0-17.5) gm/dL Hct (39.0-53.0) % BUN 27 H (9-20) mg/dL Glucose 146 H (74-99) mg/dL POC Glucose (mg/dL) (75-99) mg/dL Assessment and Plan Plan: Assessment: #1. Coronary artery disease, status post 1 vessel coronary artery bypass with CHE to LAD, postoperative day 8 #2. Non-ST elevated myocardial infarction #3. Routine postoperative ventilator management #4. Morbid obesity #5. Hypertension #6. Hyperlipidemia #7. History of CVA/TIA #8. GERD/reflux #9. History of pernicious anemia on monthly injections #10. History of bowel resection related to bowel obstruction #11. Skin cancer, basal, with resection #12. Never smoker #13. History of EtOH abuse, currently in remission #14. Chronic back pain Plan: Continue weaning FiO2, continue encouraging deep breathing and coughing, patient is tolerating ambulation, FiO2 down to 5 L, today's chest x-ray shows small bilateral pleural effusions, although ultrasounds chest did not show sizable effusion pockets for drainage. Patient received a dose of IV Lasix per CT s urgery. He is anticipated to go to inpatient rehab possibly today. We'll Follow with the patient at the [facility] inpatient rehab I performed a history & physical examination of the patient and discussed their management with my nurse practitioner, Hanny Ahmadi. I reviewed the nurse practitioner's note and agree with the documented findings and plan of care. Lung sounds are positive for clear diminished breath sounds. The findings and the impression was discussed with the patient. I attest to the documentation by the nurse practitioner. Time with Patient: Less than 30
[2018-10-17 17:19] LABS: Glucose,Whole Blood 115 mg/dL (75-99)
--- NOTE | 2018-10-17 20:23 | PN ---
PROGRESS NOTE DATE OF SERVICE: 10/17/2018. This 73-year-old gentleman admitted after CAD, CABG is being closely monitored. The patient has some evidence of CHF. The patient received some Lasix. The patient also had significant atelectasis. The patient is on bronchodilators. The patient is doing poorly on incentive spirometry. He is ambulating currently. Blood sugars have been controlled with a 3-shot regimen at this time. Cardiothoracic Surgery is following the patient and inpatient rehab with Dr. Nowak is being considered at this time. Past medical history reviewed. REVIEW OF SYSTEMS: CARDIOVASCULAR SYSTEM: No angina, palpitations. RESPIRATORY SYSTEM: As mentioned earlier. GI: No nausea, vomiting. : No dysuria or retention. NERVOUS SYSTEM: No numbness, weakness. CURRENT MEDICATIONS: Reviewed. They include: 1. Tylenol 1000 mg q.6 p.r.n. 2. DuoNeb q.i.d. and p.r.n. 3. Cordarone 400 mg p.o. b.i.d. 4. Eliquis 5 mg b.i.d. 5. Aspirin 81 mg p.o. daily. 6. Lipitor 40 mg daily. 7. Cepacol. 8. Dulcolax. 9. Vitamin D3. 10.Vitamin B12. 11.Mucinex. 12.NovoLog Mix. 13.Humulin-N. 14.Replacement protocols. 15.P.r.n. medications. 16.Protonix 40 mg daily. 17.Flomax. Doses are reviewed. PHYSICAL EXAMINATION: Patient is alert, oriented x3. Pulse 72, blood pressure 141/76, respirations 16, temperature normal, pulse ox 94% on 5 L nasal cannula. HEENT: Conjunctivae normal. NECK: No jugular venous distention. CARDIOVASCULAR SYSTEM: S1, S2 muffled. RESPIRATORY SYSTEM: Breath sounds diminished at the bases. Bilateral scattered rhonchi and crackles. Expiratory wheezing also heard. ABDOMEN: Soft, non-tender. No mass palpable. LEGS: No edema. No swelling. NERVOUS SYSTEM: Higher functions as mentioned earlier. Moves all 4 limbs. No focal motor or sensory deficit. LYMPHATICS: No lymph node palpable in neck, axillae or groin. SKIN: No ulcer, rash, bleeding. JOINTS: No active deforming arthropathy. LABS: WBC 9.3, hemoglobin 10.6. ASSESSMENT: 1. Acute yyn-BU-ncpddxk-elevation myocardial infarction, present on admission, status post coronary artery bypass grafting, CHE to LAD for LAD stenosis. 2. Troponin elevated to 0.056. 3. Ectatic aorta on the CT scan. 4. Paroxysmal atrial fibrillation. 5. Diabetes mellitus, type 2, new onset. 6. Gastroesophageal reflux disease. 7. History of cerebrovascular accident, transient ischemic attack. 8. Hyperlipidemia. 9. Hypertension. 10.History of degenerative joint disease. 11.History of transient ischemic attacks. 12.History of pernicious anemia, on B12 injections. 13.History of cholecystectomy. 14.History of bowel resection. 15.Obesity with body mass index of 46.2. 16.Gait dysfunction. RECOMMENDATIONS AND DISCUSSION: In this 73-year-old gentleman who presented with multiple complex medical issues, at this time I recommend to continue current management, continue symptomatic treatment. Recommend incentive spirometry and bronchodilators. Continue with DuoNeb q.i.d. and p.r.n. Otherwise, I would also recommend to ensure oxygenation. Currently the patient is on 5 L nasal cannula. Recommend to follow closely with Pulmonary and DVT prophylaxis. Continue the insulin protocol. I would recommend keeping the patient until the oxygenation is improved before the patient is being sent to inpatient rehab. Will continue to monitor. Further recommendations to follow. See orders for further details. Discussed with Cardiothoracic SurgeryMark Anthony. Transfer to inpatient rehab in the next 24 hours. MMDWAINE / FIONAN: [id number] /
[2018-10-17 20:57] VITALS: RESP 18
[2018-10-17] MEDS: SENNOSIDES-DOCUSATE SODIUM 1 EACH TAB PO SCH (20:57)
[2018-10-17] MEDS: TAMSULOSIN 0.4 MG CAP.ER.24H PO SCH (20:57)
[2018-10-17 21:17] LABS: Glucose,Whole Blood 145 mg/dL (75-99)
[2018-10-17] MEDS: INSULIN NPH 300 UNIT/3 ML VIAL SQ SCH (21:42)
[2018-10-18 02:26] LABS: Glucose,Whole Blood 106 mg/dL (75-99)
[2018-10-18] MEDS: INSULIN ASPART (NovoLOG) 100 UNIT/ML VIAL SQ SCH ×3 (02:28→12:17)
[2018-10-18 06:32] LABS: Glucose,Whole Blood 109 mg/dL (75-99)
[2018-10-18] MEDS: PANTOPRAZOLE 40 MG TABLET PO SCH (06:39)
[2018-10-18] MEDS: ACETAMINOPHEN TAB 500 MG TAB PO PRN (06:39)
[2018-10-18] MEDS: INSULN ASP PRT/INSULIN ASPART 100 UNIT/ML 10 ML VIAL SQ SCH (06:54)
[2018-10-18 07:47] LABS: HCT 33.6 % (39.0-53.0); MCH 29.3 pg (25.0-35.0); MCHC 32.9 g/dL (31.0-37.0); Mean Platelet Volume 7.7; Platelet Count 246 k/uL (150-450); RBC 3.77 m/uL (4.30-5.90); RDW 14.4 % (11.5-15.5)
[2018-10-18 07:59] LABS: Calcium 9.2 mg/dL (8.4-10.2); Magnesium 1.6 mg/dL (1.6-2.3)
--- NOTE | 2018-10-18 08:07 | XR ---
EXAMINATION TYPE: XR chest 2V DATE OF EXAM: 10/18/2018 COMPARISON: 02/17/2019 HISTORY: Post cardiac surgery. TECHNIQUE: Frontal and lateral views of the chest are obtained. FINDINGS: There is marked enlargement cardiomediastinal. Improved aeration in the left lung base. Mi nimal pulmonary vascular congestion remains. No sizable pneumothorax. Osseous structures are intact w ith moderate degenerative changes of the spine. Old left rib fractures are healed. Trace pleural effu sions remain. IMPRESSION: Improvement of the retrocardiac airspace disease and pulmonary vascular congestion with only minimal pulmonary vascular congestion and trace pleural effusions remaining. Marked cardiomedias tinal silhouette enlargement is similar to the prior.
[2018-10-18] MEDS ORDERED: FUROSEMIDE 10 MG/ML 4 ML VIAL IV STA (08:48)
--- NOTE | 2018-10-18 08:58 | P.DS ---
Providers Date of admission: 10/09/18 15:22 Expected date of discharge: 10/18/18 Attending physician: Jena Fallon Consults: 10/09/18 15:23 Consult Physician Urgent Consulting Provider: [facility] Consult Reason/Comments: acute chest pain, nstemi Do you want consulting provider notified?: Yes 10/10/18 14:29 Consult Physician Urgent Consulting Provider: Jena Fallon Consult Reason/Comments: Bypass consult Do you want consulting provider notified?: Already Contacted 10/10/18 17:14 Consult Physician Routine Consulting Provider: Jay French Consult Reason/Comments: preop cabg Do you want consulting provider notified?: Yes Consult to Anesthesia Routine Consulting Provider: Anesthesia,Services Consult Reason/Comments: Cardiac Surgery Pre-Op 10/11/18 13:09 Consult Physician Routine Consulting Provider: Damaris Parsons Consult Reason/Comments: med management Do you want consulting provider notified?: Already Contacted 10/14/18 07:36 Consult Physician Routine Consulting Provider: Yoav Nowak Consult Reason/Comments: inpatient rehab Do you want consulting provider notified?: Yes Primary care physician: Triny Olmstead Hospital Course: FINAL DIAGNOSIS: 1. Coronary artery disease with complex disease LAD system, status post coronary artery bypass grafting 2 vessels 2. Unstable angina 3. Preserved left ventricular function with an ejection fraction of 55-60% 4. Mild aortic valve stenosis 5. Hypertension 6. Hyperlipidemia 7. Morbid obesity 8. History of venous insufficiency 9. Spinal stenosis with chronic back pain 10. History of EtOH abuse, in remission 11. Prostate disorder 12. History of TIA with no residual effects 13. Osteoarthritis 14. Pernicious anemia 15. Newly diagnosed diabetes mellitus type 2 with admission hemoglobin A1c of 7.1% 16. Gastroesophageal reflux disease 17. Acute postoperative blood loss anemia, an expected outcome due to hemodilution and history of pernicious anemia 18. Postoperative paroxysmal atrial fibrillation, an unexpected outcome 19. Family history of premature coronary artery disease PRINCIPAL PROCEDURE: 1. Coronary angiography performed by Dr. NASIM Sprague 2. Urgent all arterial double vessel beating heart coronary artery bypass grafting using the left internal mammary artery sequentially in a side to side fashion to the second diagonal coronary artery, then to the left anterior descending coronary artery in an end-to-side fashion. 3. Intraoperative transesophageal echocardiogram and epi-aortic scanning. 4. Intraoperative graft flow measurements using the 5. Closure of the sternum with a combination of cable and plating system from [employer]. HISTORY OF PRESENT ILLNESS: This is 73-year-old gentleman who follows with Dr. Triny Olmstead on an outpatient basis. His past medical history significant for hypertension, hyperlipidemia, morbid obesity, history of venous insufficiency, pernicious anemia, spinal stenosis with chronic low back pain, history of prostate disorder, EtOH abuse which is in remission, history of TIA with no residual effects, premature coronary artery disease with 1 brother undergoing a coronary artery bypass grafting surgery in his early 50s and history of osteoarthritis. The patient presented to the emergency department here at [facility] with complaints of intermittent chest pain which was radiating down his back over a several day. His chest pain progressively became worse and was associated with some shortness of breath. Due to his presenting symptoms cardiology was consulted. The patient did have some mildly elevated troponins as high as 0.056. A 2-D echocardiogram was completed which showed him to have a normal left ventricular systolic function with an ejection fraction of 55-60%, mild aortic valve stenosis with a peak gradient of 25.03 mmHg and a mean gradient of 15.02 mmHg, mild mitral valve annular calcification and mild tricuspid valve regurgitation. For further evaluation the patient underwent a cardiac catheterization completed by Dr. NASIM Sprague which demonstrated him to have a 75% stenosis to his mid left anterior descending coronary artery, and an 80% stenosis to his diagonal coronary artery. Due to the patient's presenting symptoms and cardiac catheterization results a consult was placed to Dr. Jena Fallon from cardiothoracic surgery for further evaluation and surgical recommendations. The heart catheterization films were reviewed with the patient and his by Dr. Fallon and an urgent myocardial revascularization surgery was recommended. The risks and benefits were discussed with the patient including the STS risk score by Dr. Fallon and the patient's wishes were to proceed with the [place] cardiovascular rosacea and surgery. HOSPITAL COURSE: The patient was admitted to the hospital on 10/09/2018, and after obtaining consent was brought to the operating room where Dr. Jena Fallon performed an urgent all arterial double vessel beating heart coronary artery bypass grafting surgery using the left internal mammary artery sequentially in a side to side fashion to the second diagonal coronary artery, then to the left anterior descending coronary artery in an end-to-side fashion. He also underwent intraoperative transesophageal echocardiogram, epi-aortic scanning, intraoperative graft flow measurement using the [employer] system and closure of the sternum with a combination of cable and plating system from [employer]. Upon completion of the surgery the patient was transferred to the cardiovascular intensive care unit where he was recovered, monitored hemodynamically and where he progressed cardiac rehabilitation phase 1. He was extubated, all lines, tubes and supportive drips were discontinued when appropriate and he was transferred to the third floor cardiac stepdown unit for further monitoring and rehabilitation. Postoperative he did have some paroxysmal atrial fibrillation which was treated accordingly. His oxygen has been weaned on a daily basis, he continues to work with physical and occupational therapy, he is tolerating an oral diet, his pain is well controlled and he is ready to be discharged to inpatient rehab at [facility] for further rehabilitation needs on postoperative day #6. He has received verbal and written instructions regarding his medications, activity restrictions, signs and symptoms requiring physician notification and instructions for his follow-up appointments. COMPLICATIONS: His postoperative period was complicated by some paroxysmal atrial fibrillation which was treated accordingly. CONSULTATIONS at [facility]: 1. Dr. NASIM Sprague for cardiology management. 2. Dr. French for pulmonary and ventilator management. 3. Dr. Parsons for medical and diabetes management. 4. Dr. Nowak for inpatient rehab management. Patient Condition at Discharge: Stable Plan - Discharge Summary Discharge Rx Participant: Yes New Discharge Prescriptions: New Aspirin 81 mg PO DAILY chew Amiodarone [Cordarone] 400 mg PO BID tab Losartan [Cozaar] 25 mg PO DAILY tab Ipratropium-Albuterol Nebulize [Duoneb 0.5 mg-3 mg/3 ml Soln] 3 ml INHALATION RT-QID ampul.neb Ipratropium-Albuterol Nebulize [Duoneb 0.5 mg-3 mg/3 ml Soln] 3 ml INHALATION RT-Q2H PRN ampul.neb PRN Reason: Shortness Of Breath Or Wheezing Apixaban [Eliquis] 5 mg PO BID tab Insulin NPH [humuLIN N] 16 unit SQ HS vial Furosemide [Lasix] 40 mg PO DAILY tab Atorvastatin [Lipitor] 40 mg PO DAILY tab Metoprolol Tartrate [Lopressor] 50 mg PO BID tab Magnesium Hydroxide [Milk of Magnesia Concentrate] 2,400 mg PO BID PRN ml PRN Reason: Constipation guaiFENesin [Mucinex] 1,200 mg PO Q12HR tablet.er INSULIN ASPART (NovoLOG) [NovoLOG (formulary)] 8 unit SQ AC-SUPPER vial INSULIN ASPART ([employer]ovoLOG) [NovoLOG (formulary)] 0 unit SQ [id number] vial Insuln Asp Prt/Insulin Aspart [[employer]ovo[employer] MIX 70-30 VIAL] 33 unit SQ AC-BRKFST vial Pantoprazole [Protonix] 40 mg PO AC-BRKFST tablet.dr Hurd-Docusate Sodium [Senokot-S] 2 each PO HS PRN tab PRN Reason: Constipation Acetaminophen Tab [Tylenol] 1,000 mg PO Q6HR PRN tab PRN Reason: Fever And/ Or Pain Continue Multivitamin [Men's Multi-Vitamin] 1 tab PO DAILY Cholecalciferol [Vitamin D3 (25 Mcg = 1000 Iu)] 2,000 unit PO DAILY Cyanocobalamin [Vitamin B-12 Injection] 1,000 mcg SQ QMONTH Tamsulosin HCl [Flomax] 0.4 mg PO DAILY Cyanocobalamin (Vitamin B-12) [Vitamin B-12] 2,000 mcg PO DAILY Discontinued Lisinopril [Zestril] 20 mg PO HS Meloxicam [Mobic] 15 mg PO DAILY Omeprazole 20 mg PO DAILY Discharge Medication List Multivitamin [Men's Multi-Vitamin] 1 tab PO DAILY 04/01/15 [History] Cholecalciferol [Vitamin D3 (25 Mcg = 1000 Iu)] 2,000 unit PO DAILY 09/30/15 [History] Cyanocobalamin [Vitamin B-12 Injection] 1,000 mcg SQ QMONTH 09/27/17 [History] Cyanocobalamin (Vitamin B-12) [Vitamin B-12] 2,000 mcg PO DAILY 10/09/18 [History] Tamsulosin HCl [Flomax] 0.4 mg PO DAILY 10/09/18 [History] Acetaminophen Tab [Tylenol] 1,000 mg PO Q6HR PRN tab 10/18/18 [Rx] Amiodarone [Cordarone] 400 mg PO BID tab 10/18/18 [Rx] Apixaban [Eliquis] 5 mg PO BID tab 10/18/18 [Rx] Aspirin 81 mg PO DAILY chew 10/18/18 [Rx] Atorvastatin [Lipitor] 40 mg PO DAILY tab 10/18/18 [Rx] Furosemide [Lasix] 40 mg PO DAILY tab 10/18/18 [Rx] INSULIN ASPART (NovoLOG) [NovoLOG (formulary)] 0 unit SQ [id number] vial 10/18/18 [Rx] INSULIN ASPART (NovoLOG) [NovoLOG (formulary)] 8 unit SQ AC-SUPPER vial 10/18/18 [Rx] Insulin NPH [humuLIN N] 16 unit SQ HS vial 10/18/18 [Rx] Insuln Asp Prt/Insulin Aspart [NovoLOG MIX 70-30 VIAL] 33 unit SQ AC-BRKFST vial 10/18/18 [Rx] Ipratropium-Albuterol Nebulize [Duoneb 0.5 mg-3 mg/3 ml Soln] 3 ml INHALATION RT-Q2H PRN ampul.neb 10/18/18 [Rx] Ipratropium-Albuterol Nebulize [Duoneb 0.5 mg-3 mg/3 ml Soln] 3 ml INHALATION RT-QID ampul.neb 10/18/18 [Rx] Losartan [Cozaar] 25 mg PO DAILY tab 10/18/18 [Rx] Magnesium Hydroxide [Milk of Magnesia Concentrate] 2,400 mg PO BID PRN ml 10/18/18 [Rx] Metoprolol Tartrate [Lopressor] 50 mg PO BID tab 10/18/18 [Rx] Pantoprazole [Protonix] 40 mg PO AC-BRKFST tablet.dr 10/18/18 [Rx] Sennosides-Docusate Sodium [Senokot-S] 2 each PO HS PRN tab 10/18/18 [Rx] guaiFENesin [Mucinex] 1,200 mg PO Q12HR tablet.er 10/18/18 [Rx] Follow up Appointment(s)/Referral(s): Marybeth Paredes NPC [Nurse Practitioner] - (call for appointment once discharged from inpatient rehab) Sean Sprague MD [STAFF PHYSICIAN] - 1 Week (call for appointment once discharged from rehab) Jena Fallon MD [STAFF PHYSICIAN] - 10/28/18 11:30 am Triny Olmstead DO [Primary Care Provider] - 1 Week (call for appointment once discharged from rehab) [facility], [NON-STAFF] - 1-2 Days Activity/Diet/Wound Care/Special Instructions: For glucometer, insurance requires that you go through [employer]. Order and information was faxed but please contact them at to complete set up. DISCHARGE INSTRUCTIONS: 1. No driving for 4 weeks, or until physician gives their ok. 2. The patient should sleep in their own bed, no medical bed needed. 3. Stairs are not an issue. If the bedroom is upstairs, it is advised that the patient go up at night and down in the morning for the first week. Go slowly, using handrail and take 1 step at a time. 4. MESSI hose are to be worn for 30 days or until physician discontinues. 5. Heart hugger is to be worn 100% of the time until physician discontinues.(except when showering) 6. No lifting, pushing, or pulling more than 10 pounds for 12 weeks. The physician will advise of any restriction changes. 7. The patient is expected to continue the prescribed walking program. 8. Continue pain control per as needed orders. 9. Continue with incentive spirometry and splinting/heart hugger until otherwise directed by the physician. 10. Must shower daily using liquid antibacterial soap and a separate white washcloth for each individual incision. 11. Routine sternal incision care, no ointments, lotions or powders on the incisions. 12. Please notify surgeon/nurse practitioner for temperature greater than 101F or purulent drainage from incisions 13. Prescriptions for first 30 days given per cardiac surgery service. After 30 days, all prescription refills obtained through cardiology/primary care physician. 14. A red arm and has been placed on this patient it should be worn for 30 days post surgery and will be removed by the cardiothoracic surgeons. If an ER visit is necessary, please make sure the number on the red arm band is called. 15. The patient will need some continued diabetic education as he is a newly diagnosed type II diabetic. His admission hemoglobin A1c was 7.1%. REHAB SERVICES /HOME HEALTH SERVICES TO PROVIDE: RN SKILLED HOME CARE SERVICES FOR POST-OP SURGICAL PATIENTS WITH THE FOLLOWING: Coronary Artery Bypass Surgery (CABG), Mitral Valve Replacement/Repair ( MVR), Aortic Valve Replacement/Repair (AVR) RN TO CONTINUE EDUCATION FROM ``ROAD TO A HEALTH HEART PATIENT EDUCATION MANUAL" (GIVEN TO PATIENT IN THE HOSPITAL) MEDICATION RECONCILIATION WITH EDUCATION NEEDED ON FIRST HOME VISIT EMPHASIZE IMPORTANCE OF WEARING BREAST SUPPORT/HEART HUGGER ENCOURAGE USE OF INCENTIVE SPIROMETER 10 X EVERY HOUR WHILE AWAKE ENCOURAGE UTILIZATION OF LOWER EXTREMITY COMPRESSION STOCKINGS/MESSI HOSE and ELEVATE LEGS ABOVE LEVEL OF HEART WHILE AT REST. ENCOURAGE AMBULATION 3-5x/day INCREASING TOLERATES, WHILE AVOID EXTREMES IN TEMPERATURE ONCE DISCHARGED FROM REHAB FREQUENCY: RN TO OPEN THE PATIENT WITHIN 24 HOURS OF DISCHARGE FROM THE HOSPITAL WITH TELEHEALTH INSTALLED AT [facility] [place], RN TO VISIT 2-3 X A WEEK FOR 4 WEEKS ESTABLISHED BY PATIENT NEEDS. LABORATORY: CBC, CMP TO BE DRAWN ON THE THIRD DAY HOME, (RAN STAT) FAX RESULTS TO [phone]. ONCE DISCHARGED HOME TELEHEALTH PARAMETERS: WEIGHT: NOTIFY MD OF WEIGHT GAIN OF 2 LBS IN 24 HOURS OR 5 LBS IN ONE WEEK HR: NOTIFY MD OF HR <55 BPM OR HR>100 BPM BP: NOTIFY MD IF BP <90/55 OR BP>140/100 O2 SAT: NOTIFY MD IF PO2<93% ON ROOM AIR SEND TELEHEALTH REPORT TO GRINDING WHEEL DRESSER AND CARDIOVASCULAR SURGEON THE FIRST WEEK OF CARE AND THEN BI-WEEKLY. PLEASE ADDITIONALLY COMMUNICATE ANY ABNORMALS AND NEW FINDINGS TO THE SURGEONS OFFICE. 1. Consult cardiology associates at inpatient rehab. 2. Consult Dr. French for pulmonary management recommendations for inpatient rehab. 3. Dr. Parsons for medical management at inpatient rehab. Discharge Disposition: OTHER INSTITUTION NOT DEFINED
[2018-10-18] MEDS: guaiFENesin 600 MG TABLET.ER PO SCH (09:37)
[2018-10-18] MEDS: ATORVASTATIN 40 MG TAB PO SCH (09:37)
[2018-10-18] MEDS: ASPIRIN 81 MG PO SCH (09:37)
[2018-10-18] MEDS: IPRATROPIUM-ALBUTEROL 3 ML NEB INHALATION SCH ×2 (09:38→12:39)
[2018-10-18] MEDS: METOPROLOL TARTRATE 50 MG TAB PO SCH (09:38)
[2018-10-18] MEDS: CHOLECALCIFEROL 1,000 UNIT TAB PO SCH (09:38)
[2018-10-18] MEDS: MULTIVITAMINS, THERA 1 EACH TAB PO SCH (09:38)
[2018-10-18] MEDS: LOSARTAN 25 MG TAB PO SCH (09:38)
[2018-10-18] MEDS: APIXABAN 5 MG TAB PO SCH (09:38)
[2018-10-18] MEDS: AMIODARONE 200 MG TAB PO SCH (09:38)
[2018-10-18 10:32] VITALS: BP 127/66; TEMP 98.6
--- NOTE | 2018-10-18 11:33 | P.PN ---
Subjective Progress Note Date: 10/18/18 this is a 73-year-old gentleman who is status post two-vessel coronary artery bypass grafting surgery, he was seen and examined this morning, does state that he feeling better than yesterday but still not 100%. Ambulated with physical therapy in the hallway without much difficulty today.repeat chest x-ray of today showed continued congestive heart failure with pulmonary vascular congestion. Stable to slightly increased moderate left and small right effusion.blood pressure 146/80 with a heart rate in the seventies. 94%on 5 L of oxyg. 10/18/2018 Patient seen and examined this morning, does feel as well as breathing is significantly improved overall. He had been seen earlier this morning by cardiothoracic surgery who explained to the patient that he will be transferred today to rehab. Hemodynamically he is stable. Objective - Vital Signs Vital signs: Vital Signs Temp 98.6 F 10/18/18 08:00 Pulse 84 10/18/18 09:54 Resp 18 10/18/18 08:00 BP 127/66 10/18/18 08:00 Pulse Ox 95 10/18/18 04:00 Intake & Output 10/17/18 10/18/18 10/18/18 18:59 06:59 18:59 Intake Total 840 480 Output Total 500 650 Balance 340 -650 480 Weight 157.3 kg Intake: Oral 840 480 Output: Urine 500 650 Other: Voiding Method Toilet Toilet Toilet Urinal Urinal Urinal # Voids 1 1 # Bowel Movements 1 1 ABP, PAP, CO, CI - Last Documented Arterial Blood Pressure 127/51 Pulmonary Artery Pressure 34/15 Cardiac Output 10.6 Cardiac Index 3.9 - Exam GENERAL EXAM: Alert, pleasant, obese 73-year-old white male, on 5 L of oxygen per high flow nasal cannula comfortable in no apparent distress. HEAD: Normocephalic/atraumatic. EYES: Normal reaction of pupils, equal size. Conjunctiva pink, sclera white. NOSE: Clear with pink turbinates. THROAT: No erythema or exudates. NECK: No masses, no JVD, no thyroid enlargement, no adenopathy. CHEST: No chest wall deformity. Symmetrical expansion. Mid sternal incision is clean dry and intact, chest tube sites are clean dry and intact, covered with dressings LUNGS: Equal air entry with diffuse bilateral crackles, and diminished breath sounds at the bases CVS: Regular rate and rhythm, normal S1 and S2, no gallops, no murmurs, no rubs ABDOMEN: Soft, nontender. No hepatosplenomegaly, normal bowel sounds, no guarding or rigidity. EXTREMITIES: No clubbing, no edema, no cyanosis, 2+ pulses and upper and lower extremities. MUSCULOSKELETAL: Muscle strength and tone normal. SPINE: No scoliosis or deformity SKIN: No rashes CENTRAL NERVOUS SYSTEM: Alert and oriented -3. No focal deficits, tone is normal in all 4 extremities. PSYCHIATRIC: Alert and oriented -3. Appropriate affect. Intact judgment and insight. - Labs CBC & Chem 7: 10/18/18 07:20 10/18/18 07:20 Labs: Abnormal Lab Results - Last 24 Hours (Table) 10/17/18 10/17/18 10/17/18 Range/Units 07:45 16:47 21:16 RBC (4.30-5.90) m/uL Hgb (13.0-17.5) gm/dL Hct (39.0-53.0) % BUN (9-20) mg/dL Glucose (74-99) mg/dL POC Glucose (mg/dL) 115 H 145 H (75-99) mg/dL Vitamin B12 3294.0 H (200.0-944.0) pg/mL 10/18/18 10/18/18 10/18/18 Range/Units 02:24 06:31 07:20 RBC 3.77 L (4.30-5.90) m/uL Hgb 11.0 L (13.0-17.5) gm/dL Hct 33.6 L (39.0-53.0) % BUN (9-20) mg/dL Glucose (74-99) mg/dL POC Glucose (mg/dL) 106 H 109 H (75-99) mg/dL Vitamin B12 (200.0-944.0) pg/mL 10/18/18 Range/Units 07:20 RBC (4.30-5.90) m/uL Hgb (13.0-17.5) gm/dL Hct (39.0-53.0) % BUN 23 H (9-20) mg/dL Glucose 172 H (74-99) mg/dL POC Glucose (mg/dL) (75-99) mg/dL Vitamin B12 (200.0-944.0) pg/mL Assessment and Plan Plan: assessment and plan #1. Coronary artery disease, status post 2 vessel coronary artery bypass #2. Non-ST elevated myocardial infarction #3. Routine postoperative ventilator management #4. Morbid obesity #5. Hypertension #6. Hyperlipidemia #7. History of CVA/TIA #8. GERD/reflux #9. History of pernicious anemia on monthly injections #10. History of bowel resection related to bowel obstruction #11. Skin cancer, basal, with resection #12. Never smoker #13. History of EtOH abuse, currently in remission Plan From cardiology's perspective, patient will be transferred to rehab today we will continue to follow there. DNP note has been reviewed, I agree with a documented findings and plan of care. Patient was seen and examined.
[2018-10-18 12:02] LABS: Glucose,Whole Blood 86 mg/dL (75-99)
--- NOTE | 2018-10-18 12:25 | P.PN ---
Subjective Progress Note Date: 10/18/18 Principal diagnosis: Coronary artery disease with LAD system complex disease, unstable angina, preserved left ventricular function with ejection fraction of 55-60%, mild aortic valve stenosis, new diagnosis of type 2 diabetes mellitus with hemoglobin A1c 7.1%. Previous medical history of hypertension, hyperlipidemia, morbid obesity, basal cell skin cancer with resection, venous insufficiency, spinal stenosis with chronic low back pain, history of EtOH in remission, gastroeso phageal reflux disease, prostate disorder, TIA with no residual effects, osteoarthritis, pernicious anemia and family history of premature coronary artery disease. POD #7 urgent all arterial double beating heart coronary artery bypass grafting using the left internal mammary artery sequentially in a [id number] fashion to the second diagonal coronary artery, then to the left anterior descending coronary artery in an end-to-side fashion. Closure of the sternum with a combination of cable and plating system from [employer]. Intraoperative transesophageal echocardiogram and epi-aortic scanning. Intraoperative graft flow measurements using the [employer] system. Postoperative acute blood loss anemia, expected outcome due to hemodilution and history of pernicious anemia. Postoperative atrial fibrillation, unexpected but common condition following open heart surgery, currently in normal sinus rhythm Patient's currently sitting up in a recliner in no acute distress. States post surgical pain is controlled on current medication regimen, denies shortness of breath. Remains in normal sinus rhythm, hemodynamically stable on no inotropes or pressors. Urine output remains adequate. Patient is using incentive spirometry and coughing. Has ambulated in hallway. No other new concerns. Objective - Vital Signs Vital signs: Vital Signs Temp 98.6 F 10/18/18 08:00 Pulse 84 10/18/18 09:54 Resp 18 10/18/18 08:00 BP 127/66 10/18/18 08:00 Pulse Ox 95 10/18/18 04:00 Intake & Output 10/17/18 10/18/18 10/18/18 18:59 06:59 18:59 Intake Total 840 480 Output Total 500 650 Balance 340 -650 480 Weight 157.3 kg Intake: Oral 840 480 Output: Urine 500 650 Other: Voiding Method Toilet Toilet Toilet Urinal Urinal Urinal # Voids 1 1 # Bowel Movements 1 1 ABP, PAP, CO, CI - Last Documented Arterial Blood Pressure 127/51 Pulmonary Artery Pressure 34/15 Cardiac Output 10.6 Cardiac Index 3.9 - Constitutional General appearance: Present: cooperative, morbidly obese, no acute distress - Respiratory Details: Lungs sounds diminished bilaterally. Respirations even, nonlabored. Currently on 4L high flow nasal cannula with oxygen saturation 94%. Able to achieve 1500 mL on his incentive spirometry. Strong cough. - Cardiovascular Details: S1, S2 present. Regular rate and rhythm, sinus rhythm on telemetry. Sternum stable. Palpable peripheral pulses bilaterally. Bilateral lower extremity edema present. No calf pain or tenderness noted. Heart hugger in place with patient demonstrating appropriate use. Antiembolism stockings, SCDs present. - Gastrointestinal Gastrointestinal Comment(s): Abdomen soft, nontender, nondistended, round and obese. Active bowel sounds present 4 quadrants. Tolerating diet. Positive bowel movement. - Genitourinary Genitourinary Comment(s): Continues to void clear, yellow urine. - Integumentary Integumentary Comment(s): Skin is warm and dry with evidence of good perfusion. Anterior chest incision well approximated with Dermabond. - Neurologic Neurologic: Present: CNII-XII intact - Musculoskeletal Musculoskeletal: Present: gait normal, strength equal bilaterally - Psychiatric Psychiatric: Present: A&O x's 3, appropriate affect, intact judgment & insight - Allied health notes Allied health notes reviewed: nursing - Labs CBC & Chem 7: 10/18/18 07:20 10/18/18 07:20 Labs: Abnormal Lab Results - Last 24 Hours (Table) 10/17/18 10/17/18 10/17/18 Range/Units 07:45 16:47 21:16 RBC (4.30-5.90) m/uL Hgb (13.0-17.5) gm/dL Hct (39.0-53.0) % BUN (9-20) mg/dL Glucose (74-99) mg/dL POC Glucose (mg/dL) 115 H 145 H (75-99) mg/dL Vitamin B12 3294.0 H (200.0-944.0) pg/mL 10/18/18 10/18/18 10/18/18 Range/Units 02:24 06:31 07:20 RBC 3.77 L (4.30-5.90) m/uL Hgb 11.0 L (13.0-17.5) gm/dL Hct 33.6 L (39.0-53.0) % BUN (9-20) mg/dL Glucose (74-99) mg/dL POC Glucose (mg/dL) 106 H 109 H (75-99) mg/dL Vitamin B12 (200.0-944.0) pg/mL 10/18/18 Range/Units 07:20 RBC (4.30-5.90) m/uL Hgb (13.0-17.5) gm/dL Hct (39.0-53.0) % BUN 23 H (9-20) mg/dL Glucose 172 H (74-99) mg/dL POC Glucose (mg/dL) (75-99) mg/dL Vitamin B12 (200.0-944.0) pg/mL - Imaging and Cardiology Chest x-ray: report reviewed, image reviewed Assessment and Plan Assessment: 1. Coronary artery disease with LAD system complex disease, status post 2 vessel off-pump CABG 2. Unstable angina 3. Preserved left ventricular function, EF 55-60% 4. Mild aortic valve stenosis 5. New diagnosis type 2 diabetes mellitus with hemoglobin A1c 7.1% 6. Hypertension 7. Hyperlipidemia 8. Morbid obesity 9. TIA in the past, no residual 10. History of basal cell skin cancer greater than 5 years ago with removal 11. Venous insufficiency 12. Spinal stenosis with chronic low back pain 13. History of EtOH abuse, currently in remission for 30 years 14. GERD 15. Prostate disorder 16. Osteoarthritis 17. Pernicious anemia 18. Significant family history of coronary artery disease, 1 brother with jose ture coronary artery disease 19. Postoperative acute blood loss anemia, expected 20. Postoperative paroxysmal atrial fibrillation, unexpected Plan: 1. Continue to maximize medical therapy with aspirin, statin, Plavix, ARB, and beta car. Will increase beta car therapy as tolerated. 2. Continue amiodarone for afib prophylaxis, taper weekly. Continue Eliquis for anticoagulation. 3. Wean oxygen as tolerated. 4. Encourage incentive spirometry use 10 times every hour while awake. 5. Increase activity, ambulate as tolerated. PT/OT/cardiac rehab following. Patient needs encouragement. 6. Pain control with current medication regimen. 7. Insulin management per primary care service. 8. GI/DVT prophylaxis. 9. Lasix 40 mg IV push 1 today. 10. Diabetic teaching for new diagnosis of T2DM. 11. Will discharge to inpatient rehab today with consultations for cardiology, pulmonology, and internal medicine. 12. More recommendations to follow based on patient's clinical course. Time with Patient: Greater than 30
[2018-10-18 12:52] VITALS: PULSE 84
--- NOTE | 2018-10-18 14:09 | P.PN ---
Subjective Progress Note Date: 10/18/18 Principal diagnosis: Coronary artery disease status post 2 vessel bypass On 10/16/2018 patient seen in follow-up on selective care unit. He is resting comfortably in bed, currently on 9 L per high flow nasal cannula, denies any worsening dyspnea, lung sounds are positive for some scattered rales bilaterally, diminished breath sounds at the bases, patient's incentive spirometer effort remains suboptimal, only 750, occasionally 1000 ML. His chest x-ray has been reviewed showing small bilateral pleural effusions. Chest tubes have been discontinued, patient is voiding, and he is in negative fluid balance. Today's labs have been reviewed, showing white blood cell, 7.7, hemoglobin of 10.4, electrolytes and renal profile were unremarkable. On 10/17/2018 patient seen in follow-up on selective care unit. He is resting in bed, no acute distress, currently down to 5 L of oxygen his pulse ox is 96%, lung sounds are diminished, with some scattered rales, today's chest x-ray has been reviewed showing moderate left and small right pleural effusions, with adjacent atelectasis, over yesterday's ultrasound of the chest did not reveal significant fluid pockets on either side, left-sided showed 1.4 cm pocket, and the right side showed 1.8 cm pocket. Patient was given a dose of IV Lasix today. He remains in sinus mechanism, cardiology following, and patient is on oral amiodarone, and oral anticoagulation, oral metoprolol. On 10/18/2018 patient seen in follow-up on selective care unit, sitting up in the recliner, seems to be more awake and positive on today's exam, FiO2 is down to 4 L, with a pulse ox of 95%, today's chest x-ray shows improvement of the retrocardiac airspace disease and pulmonary vascular congestion with only minimal pulmonary breast or congestion and trace pleural effusions. Lung sounds are diminished, with basilar crackles, today's labs have been reviewed, showing white blood cell, 10.0, hemoglobin of 11.0, electrolytes and renal profile are unremarkable. Patient was given additional dose of IV Lasix per CT surgery. Acute events overnight, patient is working on incentive spirometer, he is tolerating ambulation, tolerating oral diet, incisions are clean dry and intact, she still has some lower extremity edema. Anticipate transfer to rehab possibly today Objective - Vital Signs Vital signs: Vital Signs Temp 98.6 F 10/18/18 08:00 Pulse 84 10/18/18 12:51 Resp 18 10/18/18 08:00 BP 127/66 10/18/18 08:00 Pulse Ox 95 10/18/18 04:00 Intake & Output 10/17/18 10/18/18 10/18/18 18:59 06:59 18:59 Intake Total 840 840 Output Total 500 650 Balance 340 -650 840 Weight 157.3 kg Intake: Oral 840 840 Output: Urine 500 650 Other: Voiding Method Toilet Toilet Toilet Urinal Urinal Urinal # Voids 1 1 # Bowel Movements 1 1 ABP, PAP, CO, CI - Last Documented Arterial Blood Pressure 127/51 Pulmonary Artery Pressure 34/15 Cardiac Output 10.6 Cardiac Index 3.9 - Exam GENERAL EXAM: Alert, pleasant, obese 73-year-old white male, on 3 L of oxygen per high flow nasal cannula comfortable in no apparent distress. HEAD: Normocephalic/atraumatic. EYES: Normal reaction of pupils, equal size. Conjunctiva pink, sclera white. NOSE: Clear with pink turbinates. THROAT: No erythema or exudates. NECK: No masses, no JVD, no thyroid enlargement, no adenopathy. CHEST: No chest wall deformity. Symmetrical expansion. Mid sternal incision is clean dry and intact, chest tube sites are clean dry and intact, covered with dressings LUNGS: Equal air entry with diffuse bilateral crackles, and diminished breath sounds at the bases CVS: Regular rate and rhythm, normal S1 and S2, no gallops, no murmurs, no rubs ABDOMEN: Soft, nontender. No hepatosplenomegaly, normal bowel sounds, no guarding or rigidity. EXTREMITIES: No clubbing, no edema, no cyanosis, 2+ pulses and upper and lower extremities. MUSCULOSKELETAL: Muscle strength and tone normal. SPINE: No scoliosis or deformity SKIN: No rashes CENTRAL NERVOUS SYSTEM: Alert and oriented -3. No focal deficits, tone is normal in all 4 extremities. PSYCHIATRIC: Alert and oriented -3. Appropriate affect. Intact judgment and insight. - Labs CBC & Chem 7: 10/18/18 07:20 10/18/18 07:20 Labs: Abnormal Lab Results - Last 24 Hours (Table) 10/17/18 10/17/18 10/17/18 Range/Units 07:45 16:47 21:16 RBC (4.30-5.90) m/uL Hgb (13.0-17.5) gm/dL Hct (39.0-53.0) % BUN (9-20) mg/dL Glucose (74-99) mg/dL POC Glucose (mg/dL) 115 H 145 H (75-99) mg/dL Vitamin B12 3294.0 H (200.0-944.0) pg/mL 10/18/18 10/18/18 10/18/18 Range/Units 02:24 06:31 07:20 RBC 3.77 L (4.30-5.90) m/uL Hgb 11.0 L (13.0-17.5) gm/dL Hct 33.6 L (39.0-53.0) % BUN (9-20) mg/dL Glucose (74-99) mg/dL POC Glucose (mg/dL) 106 H 109 H (75-99) mg/dL Vitamin B12 (200.0-944.0) pg/mL 10/18/18 Range/Units 07:20 RBC (4.30-5.90) m/uL Hgb (13.0-17.5) gm/dL Hct (39.0-53.0) % BUN 23 H (9-20) mg/dL Glucose 172 H (74-99) mg/dL POC Glucose (mg/dL) (75-99) mg/dL Vitamin B12 (200.0-944.0) pg/mL Assessment and Plan Plan: Assessment: #1. Coronary artery disease, status post 1 vessel coronary artery bypass with CHE to LAD, postoperative day 9 #2. Non-ST elevated myocardial infarction #3. Routine postoperative ventilator management #4. Morbid obesity #5. Hypertension #6. Hyperlipidemia #7. History of CVA/TIA #8. GERD/reflux #9. History of pernicious anemia on monthly injections #10. History of bowel resection related to bowel obstruction #11. Skin cancer, basal, with resection #12. Never smoker #13. History of EtOH abuse, currently in remission #14. Chronic back pain Plan: Patient is doing well, weaning FiO2, no worsening dyspnea, working on incentive spirometer, today's chest x-ray shows improvement in the appearance of pulmonary vascular congestion, and retrocardiac airspace disease likely related to atelectasis, hemodynamically stable, was given additional dose of IV Lasix per CT surgery, stable for discharge to inpatient rehab. I performed a history & physical examination of the patient and discussed their management with my nurse practitioner, Hanny Ahmadi. I reviewed the nurse practitioner's note and agree with the documented findings and plan of care. Lung sounds are positive for clear diminished breath sounds. The findings and the impression was discussed with the patient. I attest to the documentation by the nurse practitioner. Time with Patient: Less than 30
--- NOTE | 2018-10-18 18:01 | P.PN ---
Subjective Progress Note Date: 10/18/18 Principal diagnosis: Status post coronary artery bypass graft Patient is a 73-year-old male was admitted to the hospital due to coronary artery disease and status post CABG. Patient of some symptoms of CHF and improved with Lasix. Currently on bronchodilators and incentive spirometry. Able to sit in his comfortably. Blood sugars are controlled now. No complaints of chest pain or worsening shortness of breath. Leg swelling improved. Patient is being discharged to rehab today. No nausea vomiting or abdominal pain. No constipation or diarrhea. Current medications reviewed. Objective - Vital Signs Vital signs: Vital Signs Temp 98.6 F 10/18/18 08:00 Pulse 84 10/18/18 12:51 Resp 18 10/18/18 08:00 BP 127/66 10/18/18 08:00 Pulse Ox 95 10/18/18 04:00 Intake & Output 10/17/18 10/18/18 10/18/18 18:59 06:59 18:59 Intake Total 840 840 Output Total 500 650 Balance 340 -650 840 Weight 157.3 kg Intake: Oral 840 840 Output: Urine 500 650 Other: Voiding Method Toilet Toilet Toilet Urinal Urinal Urinal # Voids 1 1 # Bowel Movements 1 1 ABP, PAP, CO, CI - Last Documented Arterial Blood Pressure 127/51 Pulmonary Artery Pressure 34/15 Cardiac Output 10.6 Cardiac Index 3.9 - Exam PHYSICAL EXAMINATION: Patient is lying in the bed comfortably, no acute distress, awake alert and oriented.. HEENT: Normocephalic. Neck is supple. Pupils reactive. Nostrils clear. Oral cavity is moist. Ears reveal no drainage. Neck reveals no JVD, carotid bruits, or thyromegaly. CHEST EXAMINATION: Trachea is central. Symmetrical expansion. Lung robin clear to auscultation and percussion. CARDIAC: Sternal wound is intact. Normal S1, S2 with no gallops. No murmurs ABDOMEN: Soft. Bowel sounds normal. No organomegaly. No abdominal bruits. Extremities: reveal no edema. No clubbing or cyanosis Neurologically awake, alert, oriented x3 with well-coordinated movements. No focal deficits noted Skin: No rash or skin lesions. Psychiatric: Coperative. Nonsuicidal Musculoskeletal: No joint swelling or deformity. Normal range of motion. - Labs CBC & Chem 7: 10/18/18 07:20 10/18/18 07:20 Labs: Abnormal Lab Results - Last 24 Hours (Table) 10/17/18 10/18/18 10/18/18 Range/Units 21:16 02:24 06:31 RBC (4.30-5.90) m/uL Hgb (13.0-17.5) gm/dL Hct (39.0-53.0) % BUN (9-20) mg/dL Glucose (74-99) mg/dL POC Glucose (mg/dL) 145 H 106 H 109 H (75-99) mg/dL 10/18/18 10/18/18 Range/Units 07:20 07:20 RBC 3.77 L (4.30-5.90) m/uL Hgb 11.0 L (13.0-17.5) gm/dL Hct 33.6 L (39.0-53.0) % BUN 23 H (9-20) mg/dL Glucose 172 H (74-99) mg/dL POC Glucose (mg/dL) (75-99) mg/dL Assessment and Plan Assessment: Acute non-ST elevated OK present on admission status post coronary artery bypass graft CHE to LAD for LAD stenosis. Elevated troponin level to 0.056 Ectatic aorta on the computed tomography scan Paroxysmal atrial fibrillation Diabetes type 2 new-onset GERD History of CVA/TIA Hyperlipidemia next and hypertension Degenerative joint disease History of pernicious anemia on B12 injections History of cholecystectomy History of SECTION Obesity with BMI 43.8 Gait dysfunction Plan: Patient is 73-year-old male with multiple complaints medical problems admitted to hospital with acute non-ST OK. Status post coronary artery bypass graft. Currently breathing status is much improved. Continued on breathing treatments. Oxygen therapy as needed. Continue with the DVT prophylaxis. Otherwise continue the current management and cardiac medications. Patient is being discharged to rehab today. Further recommendations based on the clinical course. Time with Patient: Greater than 30
[2018-10-19] MEDS ORDERED: FUROSEMIDE 40 MG TAB PO SCH (09:00)
--- NOTE | 2018-10-19 09:56 | CDI ---
Documentation Clarification Form Date: 10/19/2018 From: Zelda Jain Phone: If questions call Charlene Garcias @ [phone], Hours-8:30 am & 5 pm MJohnson Michele Admit Date: 10/09/2018 3:22:00 PM Patient Name: Alirio Pimentel Visit Number: [id number] Discharge Date: 10/18/2018 1:30:00 PM ATTENTION: The Clinical Documentation Specialists (CDI) and [facility] Coding Staff appreciate your assistance in clarifying documentation. Please respond to the clarification below the line at the bottom and electronically sign. The CDI & [facility] Coding staff will review the response and follow-up if needed. Please note: Queries are made part of the Legal Health Record. If you have any questions, please contact the author of this message via ITS. Dr. Muriel Meehan CHF is documented in Dr. Shaikh's 10/18 prg note in the 1st paragraph ("Repeat Chest xray today shows continue congestive heart failure...."). Patient received IV Lasix several times. History/Risk Factors: NSTEMI, CAD, s/p CABG, ABLA, morbid obesity VS/Pulse OX: T-100.2, P-79, R-92, BP-126/60, O2 sat-92 BNP: 123 Echocardiogram Results: left ventricular systolic function is normal, EF between 55-60%. Chest X Ray: Left pleural effusion on 10/12. Persistent bilateral consolidation and pleural effusion correlate for mild CHF vs pneumonia on 10/13. In your professional opinion, can you please clarify the acuity and type of CHF if known? TYPE Systolic Heart Failure Diastolic Heart Failure Systolic & Diastolic Heart Failure ACUITY Acute Chronic Acute on Chronic Heart Failure Unable to Determine Other, please specify MTDD
[2018-10-26 10:44] LABS: ABG PH 7.35 (7.35-7.45)
--- NOTE | 2018-11-02 15:16 | CDI ---
Documentation Clarification Form Date: 11/02/2018 From: Zelda Jain Phone: If questions call Charlene Garcias @ [phone], Hours-8:30 am & 5 pm Susy Michele Admit Date: 10/09/2018 3:22:00 PM Patient Name: Alirio Pimentel Visit Number: [id number] Discharge Date: 10/18/2018 1:30:00 PM ATTENTION: The Clinical Documentation Specialists (CDI) and [facility] Coding Staff appreciate your assistance in clarifying documentation. Please respond to the clarification below the line at the bottom and electronically sign. The CDI & [facility] Coding staff will review the response and follow-up if needed. Please note: Queries are made part of the Legal Health Record. If you have any questions, please contact the author of this message via ITS. Dr. Jena Fallon In your 10/14 progress note you stated-"Postoperative atrial fibrillation, unexpected but common condtion following open heart surgery, currently in normal sinus rhythm." Patients Admitting Diagnosis: Unstable angina, LAD system complex disease. Post-Operative Diagnosis: Unstable angina, LAD system complex disease Procedure performed: all-arterial double beating heart CABG using the CHE sequentially in a [id number] second diagnoal artery, then to the left anterior descending artery; JOSÉ, graft flow measurements History/Risk Factors: CAD s/p CABG Clinical Indicators: EKG-atrial fibrillation Treatment: 10/14-Amiodarone 400 mg PO BID, 10/16-Eliquis 5 mg po BID In order to accurately reflect this patients severity of illness, please clarify if the post-operative atrial fibrillation, unexpected but common condition following open heart surgery diagnosis is expected or unexpected as it appears unexpected and common appear to be conflicting documentation: An expected post-procedural or post-surgical condition An unexpected post-procedural or post-surgical condition related to surgical care (a complication of care) An unexpected post-procedural or post-surgical condition, related to the patients underlying medical comorbidities Paroxysmal atrial fibrillation, common/expected condition following open heart surgery Other, please specify ____ Unable to determine Unexpected post-surgical condition, possibly related to patient's underlying medical comorbidities MTDD
== END 2018-10-18 13:30 | DRG 234 ==
LOC: EC 12:41 → 3SCARD 15:22 → 2SICU 10-11 06:55 → 3SCARD 10-15 22:13
PROVIDERS: ADMIT Internal Medicine; ATTEND Surgery
PROC: B2111ZZ Fluoroscopy of Multiple Coronary Arteries using Low Osmolar Contrast (ICD-10-PCS; 2018-10-10)
PROC: B44HZZZ Ultrasonography of Bilateral Lower Extremity Arteries (ICD-10-PCS; 2018-10-10)
PROC: B246ZZ4 Ultrasonography of Right and Left Heart, Transesophageal (ICD-10-PCS; 2018-10-11)
PROC: 4A1305C Monitoring of Arterial Flow, Coronary, Open Approach (ICD-10-PCS; 2018-10-11)
PROC: 30233N0 Transfusion of Autologous Red Blood Cells into Peripheral Vein, Percutaneous Approach (ICD-10-PCS; 2018-10-11)
PROC: 02110Z9 Bypass Coronary Artery, Two Arteries from Left Internal Mammary, Open Approach (ICD-10-PCS; principal; 2018-10-11 08:15)
PROC: 5A09457 Assistance with Respiratory Ventilation, 24-96 Consecutive Hours, Continuous Positive Airway Pressure (ICD-10-PCS; 2018-10-12)
PROC: 05HD33Z Insertion of Infusion Device into Right Cephalic Vein, Percutaneous Approach (ICD-10-PCS; 2018-10-14)
DX: I21.4 Non-ST elevation (NSTEMI) myocardial infarction (principal); N17.9 Acute kidney failure, unspecified; Z68.42 Body mass index [BMI] 45.0-49.9, adult; D62 Acute posthemorrhagic anemia; J98.11 Atelectasis; E66.01 Morbid (severe) obesity due to excess calories; I48.0 Paroxysmal atrial fibrillation; I08.2 Rheumatic disorders of both aortic and tricuspid valves; I25.110 Atherosclerotic heart disease of native coronary artery with unstable angina pectoris; D51.0 Vitamin B12 deficiency anemia due to intrinsic factor deficiency; E11.9 Type 2 diabetes mellitus without complications; I11.9 Hypertensive heart disease without heart failure; I25.84 Coronary atherosclerosis due to calcified coronary lesion; R09.02 Hypoxemia; E78.5 Hyperlipidemia, unspecified; I77.810 Thoracic aortic ectasia; I87.2 Venous insufficiency (chronic) (peripheral); K21.9 Gastro-esophageal reflux disease without esophagitis; I45.10 Unspecified right bundle-branch block; M19.90 Unspecified osteoarthritis, unspecified site; M48.00 Spinal stenosis, site unspecified; N40.0 Benign prostatic hyperplasia without lower urinary tract symptoms; G89.29 Other chronic pain; M54.5 Low back pain; R53.81 Other malaise; R26.9 Unspecified abnormalities of gait and mobility; F10.21 Alcohol dependence, in remission; Z79.1 Long term (current) use of non-steroidal anti-inflammatories (NSAID); Z79.899 Other long term (current) drug therapy; Z71.3 Dietary counseling and surveillance; Z85.828 Personal history of other malignant neoplasm of skin; Z86.73 Personal history of transient ischemic attack (TIA), and cerebral infarction without residual deficits; Z90.49 Acquired absence of other specified parts of digestive tract; Z96.653 Presence of artificial knee joint, bilateral; Z98.42 Cataract extraction status, left eye; Z98.41 Cataract extraction status, right eye; Z88.1 Allergy status to other antibiotic agents; Z88.5 Allergy status to narcotic agent; Z82.49 Family history of ischemic heart disease and other diseases of the circulatory system; Z82.5 Family history of asthma and other chronic lower respiratory diseases; Z83.3 Family history of diabetes mellitus; Z82.3 Family history of stroke
CPT/HCPCS: 36410; 36415; 71045; 71046; 71260; 76604; 76937; 80048; 80053; 80061; 80074; 81001; 82330; 82607; 82805; 83036; 83690; 83735; 83880; 84132; 84443; 84484; 85025; 85027; 85379; 85520; 85610; 85730; 86850; 86891; 86900; 86901; 86920; 87070; 87086; 93005; 93306; 93458; 93880; 93970; 94002; 94003; 94150; 94640; 94660; 94667; 94668; 94760; 96365; 96366; 96367; 96375; 96376; 99285

== ENCOUNTER 2018-12-20 11:51 | Observation (INO) | payer MEDICARE, BC ==
[2018-12-20] MEDS ORDERED: ASPIRIN 81 MG PO STA (12:10)
[2018-12-20] MEDS ORDERED: NITROGLYCERIN SL TABS 0.4 MG TAB SUBLINGUAL STA ×3 (12:10)
--- NOTE | 2018-12-20 12:21 | ED ---
General Adult HPI - General Chief complaint: Chest Pain Stated complaint: Chest pain Time Seen by Provider: 12/20/18 11:52 Source: patient, RN notes reviewed Mode of arrival: wheelchair Limitations: no limitations - History of Present Illness Initial comments: Patient is a pleasant 73-year-old male presenting to the emergency Department with chest discomfort. Patient was coming to the hospital for cardiac rehab. Patient started developing chest discomfort. Chest discomfort is described as squeezing or sharp and anterior chest. No radiation. Discomfort is somewhat increased with deep breath. Patient denies any dyspnea. No nausea. No diaphor esis. Patient is just a couple months post bypass surgery. - Related Data Home Medications Medication Instructions Recorded Confirmed Multivitamin [Men's Multi-Vitamin] 1 tab PO DAILY 04/01/15 12/20/18 Cholecalciferol [Vitamin D3 (25 2,000 unit PO DAILY 09/30/15 12/20/18 Mcg = 1000 Iu)] Cyanocobalamin [Vitamin B-12 1,000 mcg SQ Q30D 09/27/17 12/20/18 Injection] Cyanocobalamin (Vitamin B-12) 2,000 mcg PO DAILY 10/09/18 12/20/18 [Vitamin B-12] Tamsulosin HCl [Flomax] 0.4 mg PO DAILY 10/09/18 12/20/18 Fluticasone Nasal [place] [Flonase 2 spr EA NOSTRIL DAILY 12/20/18 12/20/18 Nasal [place]] HYDROcodone/APAP 5-325MG [[place] 1 tab PO Q6HR PRN 12/20/18 12/20/18 5-325] Insulin Glargine [Lantus] 20 unit SQ HS 12/20/18 12/20/18 Metoprolol Succinate (ER) [Toprol 50 mg PO BID 12/20/18 12/20/18 Xl] Pantoprazole [Protonix] 40 mg PO QAM 12/20/18 12/20/18 metFORMIN HCL 500 mg PO BID 12/20/18 12/20/18 Previous Rx's Medication Instructions Recorded Apixaban [Eliquis] 5 mg PO BID tab 10/18/18 Aspirin 81 mg PO DAILY chew 10/18/18 Atorvastatin [Lipitor] 40 mg PO DAILY tab 10/18/18 Allergies Allergy/AdvReac Type Severity Reaction Status Date / Time azithromycin [From Zithromax] AdvReac Nausea & Verified 12/20/18 12:20 Vomiting codeine AdvReac Nausea & Verified 12/20/18 12:20 Vomiting Review of Systems ROS Statement: Those systems with pertinent positive or pertinent negative responses have been documented in the HPI. ROS Other: All systems not noted in ROS Statement are negative. Constitutional: Denies: fever Eyes: Denies: eye pain ENT: Denies: ear pain Respiratory: Denies: cough Cardiovascular: Reports: chest pain Endocrine: Denies: fatigue Gastrointestinal: Denies: abdominal pain Genitourinary: Denies: dysuria Musculoskeletal: Denies: back pain Skin: Denies: rash Neurological: Denies: weakness Past Medical History Past Medical History: Cancer, CVA/TIA, Eye Disorder, GERD/Reflux, Hyperlipidemia, Hypertension, Osteoarthritis (OA), Prostate Disorder, Skin Disorder Additional Past Medical History / Comment(s): TIA yrs. 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 VERONICA CATARACT Past Anesthesia/Blood Transfusion Reactions: No Reported Reaction Past Psychological History: No Psychological Hx Reported Smoking Status: Never smoker Past Alcohol Use History: None Reported Past Drug Use History: None Reported - Past Family History Father Family Medical History: Congestive Heart Failure (CHF), CVA/TIA Additional Family Medical History / Comment(s): at age 68 Brother(s) Family Medical History: Cancer, COPD, Diabetes Mellitus Additional Family Medical History / Comment(s): heart problems Mother Family Medical History: Myocardial Infarction (CA) Additional Family Medical History / Comment(s): at 79 w/ CA General Exam Limitations: no limitations General appearance: alert, in no apparent distress Head exam: Present: atraumatic Eye exam: Present: normal appearance, PERRL ENT exam: Present: normal oropharynx Neck exam: Present: normal inspection Respiratory exam: Present: normal lung sounds bilaterally, chest wall tenderness (Mild tenderness) Cardiovascular Exam: Present: regular rate, normal rhythm, systolic murmur Expanded Peripheral pulses: 2+: Radial (R), Radial (L), Posterior Tibialis (R), Posterior Tibialis (L) GI/Abdominal exam: Present: soft. Absent: distended, tenderness Extremities exam: Present: normal inspection. Absent: pedal edema, calf tenderness Neurological exam: Present: alert Psychiatric exam: Present: normal affect, normal mood Skin exam: Present: normal color Course Vital Signs 12/20/18 12/20/18 12/20/18 11:51 12:20 12:33 Temperature 97.7 F Pulse Rate 68 67 65 Pulse Rate [ [employer] ] Respiratory 22 20 18 Rate Blood Pressure 153/88 151/85 115/83 O2 Sat by Pulse 98 96 Oximetry 12/20/18 12/20/18 13:00 13:34 Temperature Pulse Rate 60 Pulse Rate [ 62 [employer] ] Respiratory 18 18 Rate Blood Pressure O2 Sat by Pulse 98 Oximetry EKG Findings - EKG Comments: EKG Findings:: Normal sinus rhythm 66. NC 184. QRS 102. QT 406. QTc 425. Normal axis. Incomplete right bundle-branch block. Nonspecific T waves. Medical Decision Making - Medical Decision Making Patient reevaluated and resting comfortably in bed. Symptoms improved. Patient updated on results and plan. Case was discussed with Dr. Parsons, who will admit covering for Dr. Olmstead. - Lab Data Result diagrams: 12/20/18 12:09 12/20/18 12:09 Lab Results 12/20/18 12/20/18 12/20/18 Range/Units 12:09 12:09 12:09 WBC 6.9 (3.8-10.6) k/uL RBC 4.71 (4.30-5.90) m/uL Hgb 13.4 (13.0-17.5) gm/dL Hct 40.2 (39.0-53.0) % MCV 85.5 (80.0-100.0) fL MCH 28.4 (25.0-35.0) pg MCHC 33.2 (31.0-37.0) g/dL RDW 14.8 (11.5-15.5) % Plt Count 175 (150-450) k/uL Neutrophils % 66 % Lymphocytes % 22 % Monocytes % 7 % Eosinophils % 3 % Basophils % 1 % Neutrophils # 4.6 (1.3-7.7) k/uL Lymphocytes # 1.5 (1.0-4.8) k/uL Monocytes # 0.5 (0-1.0) k/uL Eosinophils # 0.2 (0-0.7) k/uL Basophils # 0.1 (0-0.2) k/uL PT 10.7 (9.0-12.0) sec INR 1.0 (<1.2) APTT 26.3 (22.0-30.0) sec D-Dimer 0.92 H (<0.60) mg/L FEU Sodium 142 (137-145) mmol/L Potassium 4.4 (3.5-5.1) mmol/L Chloride 107 (98-107) mmol/L Carbon Dioxide 25 (22-30) mmol/L Anion Gap 10 mmol/L BUN 20 (9-20) mg/dL Creatinine 0.92 (0.66-1.25) mg/dL Est GFR (CKD-EPI)AfAm >90 (>60 ml/min/1.73 sqM) Est GFR (CKD-EPI)NonAf 82 (>60 ml/min/1.73 sqM) Glucose 124 H (74-99) mg/dL Calcium 9.8 (8.4-10.2) mg/dL Magnesium 1.5 L (1.6-2.3) mg/dL Total Bilirubin 0.7 (0.2-1.3) mg/dL AST 22 (17-59) U/L ALT 20 L (21-72) U/L Alkaline Phosphatase 76 (38-126) U/L Troponin I (0.000-0.034) ng/mL Total Protein 6.8 (6.3-8.2) g/dL Albumin 3.9 (3.5-5.0) g/dL 12/20/18 Range/Units 12:09 WBC (3.8-10.6) k/uL RBC (4.30-5.90) m/uL Hgb (13.0-17.5) gm/dL Hct (39.0-53.0) % MCV (80.0-100.0) fL MCH (25.0-35.0) pg MCHC (31.0-37.0) g/dL RDW (11.5-15.5) % Plt Count (150-450) k/uL Neutrophils % % Lymphocytes % % Monocytes % % Eosinophils % % Basophils % % Neutrophils # (1.3-7.7) k/uL Lymphocytes # (1.0-4.8) k/uL Monocytes # (0-1.0) k/uL Eosinophils # (0-0.7) k/uL Basophils # (0-0.2) k/uL PT (9.0-12.0) sec INR (<1.2) APTT (22.0-30.0) sec D-Dimer (<0.60) mg/L FEU Sodium (137-145) mmol/L Potassium (3.5-5.1) mmol/L Chloride (98-107) mmol/L Carbon Dioxide (22-30) mmol/L Anion Gap mmol/L BUN (9-20) mg/dL Creatinine (0.66-1.25) mg/dL Est GFR (CKD-EPI)AfAm (>60 ml/min/1.73 sqM) Est GFR (CKD-EPI)NonAf (>60 ml/min/1.73 sqM) Glucose (74-99) mg/dL Calcium (8.4-10.2) mg/dL Magnesium (1.6-2.3) mg/dL Total Bilirubin (0.2-1.3) mg/dL AST (17-59) U/L ALT (21-72) U/L Alkaline Phosphatase (38-126) U/L Troponin I <0.012 (0.000-0.034) ng/mL Total Protein (6.3-8.2) g/dL Albumin (3.5-5.0) g/dL - Radiology Data Radiology results: image reviewed (6. Does not reveal acute process) Disposition Clinical Impression: Chest pain Disposition: ADMITTED IP TO THIS HOSP Is patient prescribed a controlled substance at d/c from ED?: No Referrals: Triny Olmstead DO [Primary Care Provider] - 1-2 days Decision Time: 13:53
[2018-12-20 12:28] LABS: Basophils # (A) 0.1 k/uL (0-0.2); Basophils % (A) 1 %; Eosinophils # (A) 0.2 k/uL (0-0.7); Eosinophils % (A) 3 %; HCT 40.2 % (39.0-53.0); HGB 13.4 gm/dL (13.0-17.5); Lymphocytes # (A) 1.5 k/uL (1.0-4.8); Lymphocytes % (A) 22 %; MCH 28.4 pg (25.0-35.0); MCHC 33.2 g/dL (31.0-37.0); MCV 85.5 fL (80.0-100.0); Mean Platelet Volume 7.4; Monocytes # (A) 0.5 k/uL (0-1.0); Monocytes % (A) 7 %; Neutrophils # (A) 4.6 k/uL (1.3-7.7); Neutrophils % (A) 66 %; Platelet Count 175 k/uL (150-450); RBC 4.71 m/uL (4.30-5.90); RDW 14.8 % (11.5-15.5); WBC 6.9 k/uL (3.8-10.6)
[2018-12-20 12:41] LABS: ALT 20 U/L (21-72); AST 22 U/L (17-59); African American GFR (CKD) >90 (>60 ml/min/1.73 sqM); Albumin 3.9 g/dL (3.5-5.0); Alkaline Phosphatase 76 U/L (38-126); Anion Gap 10 mmol/L; Blood Urea Nitrogen 20 mg/dL (9-20); Calcium 9.8 mg/dL (8.4-10.2); Carbon Dioxide 25 mmol/L (22-30); Chloride 107 mmol/L (98-107); Glucose 124 mg/dL (74-99); Magnesium 1.5 mg/dL (1.6-2.3); Potassium 4.4 mmol/L (3.5-5.1); Sodium 142 mmol/L (137-145); Total Bilirubin 0.7 mg/dL (0.2-1.3); Total Protein 6.8 g/dL (6.3-8.2)
[2018-12-20 12:44] LABS: Partial Thromboplastin Time 26.3 sec (22.0-30.0); Prothrombin Time 10.7 sec (9.0-12.0)
--- NOTE | 2018-12-20 12:44 | XR ---
EXAMINATION TYPE: XR chest 2V DATE OF EXAM: 12/20/2018 COMPARISON: 10/28/2018 HISTORY: Chest pain with history of cardiac bypass TECHNIQUE: Frontal and lateral views of the chest are obtained. FINDINGS: There is no focal air space opacity, pleural effusion, or pneumothorax seen. Flattening of the diaphragms on the lateral view suggests underlying COPD. Postsurgical changes are seen of the me diastinum from prior CABG with redemonstration of an enlarged cardiac mediastinal silhouette. Degener ative changes of the thoracic spine are moderate. The osseous structures are intact. IMPRESSION: No acute cardiopulmonary process. Persistent cardiomegaly and findings suggesting underl judy COPD.
[2018-12-20] MEDS ORDERED: MAGNESIUM OXIDE 400 MG TAB PO STA (12:51)
[2018-12-20 13:33] LABS: D-Dimer 0.92 mg/L FEU (<0.60)
[2018-12-20] MEDS ORDERED: NITROGLYCERIN SL TABS 0.4 MG TAB SUBLINGUAL PRN (13:53)
[2018-12-20] MEDS ORDERED: MAGNESIUM SULFATE-D5W PMX 1 GM in DEXTROSE/WATER 1 100ML.BAG IVPB ONE (15:00)
[2018-12-20] MEDS ORDERED: CYANOCOBALAMIN 1,000 MCG/ML 1 ML VIAL SQ SCH (15:00)
--- NOTE | 2018-12-20 15:04 | CT ---
EXAMINATION TYPE: CT angio chest DATE OF EXAM: 12/20/2018 COMPARISON: CT chest October 09, 2018 HISTORY: Left sided chest pains CT DLP: 1007.1 mGycm. Automated Exposure Control for Dose Reduction was Utilized. CONTRAST: CTA scan of the thorax is performed with IV Contrast, patient injected with 100 mL of Isovue 370, pul monary embolism protocol. MIP Images are created on CT scanner and reviewed. FINDINGS: LUNGS: Exam suboptimal as there is respiratory motion artifact degradation on current study. There is focal left lateral basilar consolidation and/or atelectasis axial image 84 with more superior linear atelectasis noted. There are some patchy bibasilar atelectasis and/or scarring. No pleural effusion or pneumothorax. MEDIASTINUM: There is suboptimal study with heterogeneity and near equal contrast the right and left heart systems, there is no large central pulmonary embolism, smaller segmental and subsegmental PE c annot be excluded on this study. There are no greater than 1 cm hilar or mediastinal lymph nodes. No significant pericardial effusion is seen. Cardiomegaly is present. Coronary artery calcification i s seen but there are post CABG changes with mediastinal clips and sternal wires noted. There is four vessel origin from aortic arch which is normal variant. OTHER: Cholecystectomy clips. Some cortical thinning both kidneys. A few simple appearing thin-walled cyst left kidney are partially imaged. Multilevel spurring in the spine. IMPRESSION: 1. Suboptimal study without large central pulmonary embolism. Smaller segmental and subsegmental PE c annot be excluded on this exam. 2. Cardiomegaly with new focal lateral left lower lung consolidation and/or atelectasis
[2018-12-20] MEDS: HYDROcodone/APAP 5-325MG 1 EACH TAB PO PRN (15:51)
[2018-12-20] MEDS ORDERED: IPRATROPIUM-ALBUTEROL 3 ML NEB INHALATION PRN (16:25)
[2018-12-20] MEDS: NITROGLYCERIN OINT 1 INCH/GM PACKET TOPICAL SCH (17:10)
[2018-12-20] MEDS: IPRATROPIUM-ALBUTEROL 3 ML NEB INHALATION SCH (19:29)
--- NOTE | 2018-12-20 19:40 | HP ---
HISTORY AND PHYSICAL DATE OF SERVICE: 12/20/2018 CHIEF COMPLAINT: Chest pain. HISTORY OF PRESENT ILLNESS: This 73-year-old gentleman with a past medical history of atrial fibrillation, history of CVA, TIA, diabetes, history of GERD, hypertension, hyperlipidemia, history of DJD, history of CAD, CABG, bowel resection, cholecystomy being followed by Dr. Weathers in the outpatient setting, recently had CAD/CABG. The patient underwent CHE to LAD for LAD stenosis. Subsequently patient had inpatient rehab and the patient is currently on cardiac rehab. The patient apparently moved some heavy tables in the basement a few days ago. The patient subsequently had some chest pains bilateral, which is rather sharp in character and because of the lack of improvement, the patient checked with Cardiothoracic surgery who sent the patient to [facility] and the patient admitted for evaluation and treatment. There is no history of fever, rigors, or chills, no history of headache, loss of consciousness or seizures. Initial D-dimer 0.92. CTs angio suboptimal. Did not show any evidence of major pulmonary embolism. Atelectasis redemonstrated. The troponins are negative at this time. The patient's most recent EKG showed diffuse ST-T changes. Otherwise no acute changes. There is no history of fever, rigors or chills. No history of headache, loss of consciousness or seizures at this time. PAST MEDICAL HISTORY: History of recent CAD, CABG, history of atrial fibrillation, CVA, TIA, diabetes, GERD, hypertension, hyperlipidemia, DJD, prostate disorder, bowel resection. MEDICATIONS: Home medications are reviewed and include: 1. Lantus 20 units subcu q.h.s. 2. [place] 5 mg q.6h p.r.n. 3. Vitamin B12 1000 mcg Q 30 days. 4. Metformin 500 mg p.o. b.i.d. 5. Toprol-XL 50 mg p.o. b.i.d. 6. Flonase nasal spray 2 sprays daily. 7. Flomax 0.4 daily. 8. Protonix 40 mg q.a.m. 9. Multivitamins 1 p.o. daily. 10.Vitamin B12 2000 mcg p.o. daily. 11.Vitamin D3 2000 daily. 12.Lipitor 40 mg p.o. daily. 13.Aspirin 81 mg. 14.Eliquis 5 mg p.o. b.i.d. ALLERGIES: ZITHROMAX AND CODEINE. FAMILY HISTORY: History of myocardial infarction. SOCIAL HISTORY: No history of smoking. No history of alcohol intake. REVIEW OF SYSTEMS: ENT: No diminished vision. No diminished hearing. CARDIOVASCULAR system as mentioned earlier. GI no nausea or vomiting. no dysuria or hematuria. CENTRAL NERVOUS SYSTEM: No numbness or weakness. ALLERGY/IMMUNOLOGY: No asthma or hayfever. MUSCULOSKELETAL: As mentioned earlier. HEMATOLOGY/ONCOLOGY: No history of anemia. ENDOCRINE: Diabetes. CONSTITUTIONAL: As mentioned earlier. DERMATOLOGY: Negative. RHEUMATOLOGY negative. PSYCHIATRY as mentioned earlier. PHYSICAL EXAMINATION: The patient is alert and oriented x3. Pulse 59, blood pressure 143/93, respiration 18, temperature 98.3, pulse ox 98% on 2 L. HEENT: Conjunctivae normal. Oral mucosa moist. NECK is no jugular venous distention. No carotid bruit. No lymph node enlargement. CARDIOVASCULAR SYSTEM: S1, S2 muffled. Ejection systolic murmur. No S3, no S4. RESPIRATORY: Breath sounds diminished in the bases. No rhonchi. No crackles. ABDOMEN: Soft, nontender. No mass palpable. Obese. LEGS: No edema. No swelling. NERVOUS SYSTEM: Higher functions as mentioned earlier. Moves all 4 limbs. No focal motor or sensory deficits. LYMPHATICS: No lymph nodes palpable in the neck, axillae or groin. SKIN: No ulcers, no rashes. No bleeding. JOINTS: No active deforming arthropathy. Examination of the chest: Minimal local tenderness present bilaterally. LAB: CBC within normal limits. D-dimer 0.92. Glucose 124. Other labs are noted. ASSESSMENT: 1. Chest pain for evaluation, possible unstable angina, possibly musculoskeletal. 2. Elevated D-dimer with no evidence of any pulmonary embolism. 3. Hypomagnesemia. 4. Persistent atelectasis. 5. History of recent coronary artery disease/coronary artery bypass grafting. 6. History of atrial fibrillation. 7. Cerebrovascular accident/ transient ischemic attack. 8. Diabetes type 2. 9. Gastroesophageal reflux disease. 10.Hypertension. 11.Hyperlipidemia. 12.History of degenerative joint disease. 13.History of prostate disorder. 14.History of transient ischemic attack. 15.History of pernicious anemia with monthly injections. 16.History of hiatal hernia. 17.Benign prostatic hypertrophy. 18.History of chronic leg edema. 19.History of spinal stenosis. 20.History of degenerative joint disease. 21.History of cardiac catheterization. 22.Obesity with body mass index of 45.9. RECOMMENDATIONS AND DISCUSSION: In this 73-year-old gentleman who presented with multiple complex medical issues, we will monitor the patient closely, continue the current medications, management and symptomatic treatment. We will continue with unstable angina protocol. Resume the home medications. Rule out myocardial infarction. Cardiology consultation. Also recommend incentive spirometry and course of bronchodilators also. Follow the patient closely and further recommendations. A copy of this forwarded to Dr. Weathers who is the primary physician. MMODL / IJN: [id number] /
[2018-12-20] MEDS ORDERED: INSULIN DETEMIR (LEVEMIR) 100 UNIT/ML SYR SQ SCH (21:00)
[2018-12-20] MEDS: metFORMIN 500 MG TAB PO SCH (21:08)
[2018-12-20] MEDS: APIXABAN 5 MG TAB PO SCH (21:08)
[2018-12-20] MEDS: METOPROLOL SUCCINATE (ER) 50 MG TAB.ER.24H PO SCH (21:08)
[2018-12-21] MEDS: NITROGLYCERIN OINT 1 INCH/GM PACKET TOPICAL SCH ×3 (00:35→11:01)
[2018-12-21] MEDS: HYDROcodone/APAP 5-325MG 1 EACH TAB PO PRN ×2 (05:10→10:57)
[2018-12-21 06:30] LABS: Anisocytosis Slight; Basophils % (A) 1 %; Eosinophils # (A) 0.3 k/uL (0-0.7); Eosinophils % (A) 4 %; HCT 39.4 % (39.0-53.0); Lymphocytes # (A) 1.6 k/uL (1.0-4.8); Lymphocytes % (A) 25 %; MCH 28.8 pg (25.0-35.0); MCHC 32.9 g/dL (31.0-37.0); MCV 87.5 fL (80.0-100.0); Mean Platelet Volume 7.7; Monocytes # (A) 0.4 k/uL (0-1.0); Monocytes % (A) 7 %; Neutrophils # (A) 3.8 k/uL (1.3-7.7); Neutrophils % (A) 61 %; Platelet Count 178 k/uL (150-450); RDW 16.1 % (11.5-15.5); WBC 6.3 k/uL (3.8-10.6)
[2018-12-21 06:40] LABS: African American GFR (CKD) >90 (>60 ml/min/1.73 sqM); Anion Gap 7 mmol/L; Blood Urea Nitrogen 19 mg/dL (9-20); Calcium 9.1 mg/dL (8.4-10.2); Carbon Dioxide 27 mmol/L (22-30); Chloride 105 mmol/L (98-107); Cholesterol 95 mg/dL (<200); Glucose 109 mg/dL (74-99); HDL Cholesterol 34 mg/dL (40-60); LDL Cholesterol,Calculated 36 mg/dL (0-99); Magnesium 1.7 mg/dL (1.6-2.3); Potassium 3.9 mmol/L (3.5-5.1); Sodium 139 mmol/L (137-145); Triglycerides 126 mg/dL (<150)
[2018-12-21] MEDS: IPRATROPIUM-ALBUTEROL 3 ML NEB INHALATION SCH (07:14)
[2018-12-21] MEDS ORDERED: PANTOPRAZOLE 40 MG TABLET PO SCH (07:30)
--- NOTE | 2018-12-21 08:05 | P.CRDCN ---
History of Present Illness Consult date: 12/21/18 Chief complaint: Chest pain History of present illness: This is a pleasant 73-year-old gentleman who sees Dr. NASIM Sprague in the office on a regular days with a past medical history significant for coronary artery disease, in October 2018, he underwent coronary artery bypass grafting where he received CHE to diagonal and LAD in sequential way, as well as hypertension, and dyslipidemia, as well as paroxysmal atrial fibrillation, [facility] complaining of chest discomfort. He was in his usual state of health until yesterday when he was at home and started experiencing discomfort in the mid of the chest, as a sharp kind of discomfort, lasted for few seconds only, and without any associated symptoms of shortness of breath, dizziness, heart racing, or syncope. The patient states clearly that the discomfort is worse once he take in view of breath and better with resting. The d-dimer was checked and came in to be abnormal but subsequently the computed tomography scan of the chest showed no PE. The EKG showed sinus rhythm with diffuse nonspecific ST and T wave abnormalities. 3 sets of cardiac enzymes were checked and came in to be unremarkable. The chest x-ray did not show any acute abnormalities. Currently the patient is chest pain free. I did recommend getting the patient up and around, and if he is chest pain free he might be able to be discharged home on follow-up with Dr. Sprague in the office. Past Medical History Past Medical History: Atrial Fibrillation, Cancer, CVA/TIA, Diabetes Mellitus, Eye Disorder, GERD/Reflux, Hyperlipidemia, Hypertension, Osteoarthritis (OA), Prostate Disorder, Skin Disorder, Vascular Disorder Additional Past Medical History / Comment(s): IDDM type II, post CABG A fib, TIA years ago, pernicious anemia with monthly injections, hiatal hernia, BPH, venous insufficiency, occasional lower leg/pedal edema, spinal stenosis, herniated disc L1, spinal cyst, chronic low back pain, rare cervical pain, History of Any Multi-Drug Resistant Organisms: None Reported Past Surgical History: Bowel Resection, Cholecystectomy, Coronary Bypass/CABG, Heart Catheterization, Hernia Repair, Joint Replacement Additional Past Surgical History / Comment(s): 10/2018 CABG 2 vessels, Bilateral knees replaced with R side done twice, bowel resection when pt was 12 yrs old d/t obstruction, umbilical hernia repair, skin cancer removed from mid back, colonoscopy, back injections in past, bilateral cataract removals with lens implants. Past Anesthesia/Blood Transfusion Reactions: No Reported Reaction Smoking Status: Never smoker - Past Family History Father Family Medical History: Congestive Heart Failure (CHF), CVA/TIA Additional Family Medical History / Comment(s): at age 68 Brother(s) Family Medical History: Cancer, COPD, Diabetes Mellitus Additional Family Medical History / Comment(s): heart problems Mother Family Medical History: Myocardial Infarction ([place]) Additional Family Medical History / Comment(s): at 79 w/ [place] Medications and Allergies Home Medications Medication Instructions Recorded Confirmed Type Multivitamin [Men's Multi-Vitamin] 1 tab PO DAILY 04/01/15 12/20/18 History Cholecalciferol [Vitamin D3 (25 2,000 unit PO DAILY 09/30/15 12/20/18 History Mcg = 1000 Iu)] Cyanocobalamin [Vitamin B-12 1,000 mcg SQ Q30D 09/27/17 12/20/18 History Injection] Cyanocobalamin (Vitamin B-12) 2,000 mcg PO DAILY 10/09/18 12/20/18 History [Vitamin B-12] Tamsulosin HCl [Flomax] 0.4 mg PO DAILY 10/09/18 12/20/18 History Apixaban [Eliquis] 5 mg PO BID tab 10/18/18 12/20/18 Rx Aspirin 81 mg PO DAILY chew 10/18/18 12/20/18 Rx Atorvastatin [Lipitor] 40 mg PO DAILY tab 10/18/18 12/20/18 Rx Fluticasone Nasal [place] [Flonase 2 spr EA NOSTRIL DAILY 12/20/18 12/20/18 History Nasal [place]] HYDROcodone/APAP 5-325MG [[place] 1 tab PO Q6HR PRN 12/20/18 12/20/18 History 5-325] Insulin Glargine [Lantus] 20 unit SQ HS 12/20/18 12/20/18 History Metoprolol Succinate (ER) [Toprol 50 mg PO BID 12/20/18 12/20/18 History Xl] Pantoprazole [Protonix] 40 mg PO QAM 12/20/18 12/20/18 History metFORMIN HCL 500 mg PO BID 12/20/18 12/20/18 History Allergies Allergy/AdvReac Type Severity Reaction Status Date / Time azithromycin [From Zithromax] AdvReac Nausea & Verified 12/20/18 12:20 Vomiting codeine AdvReac Nausea & Verified 12/20/18 12:20 Vomiting Physical Exam Vitals: Vital Signs Temp Pulse Pulse Pulse Resp BP BP 12/21/18 04:00 98.1 F 63 18 119/69 12/21/18 00:00 97.7 F 64 18 107/66 12/20/18 20:00 97.5 F L 56 L 18 146/82 12/20/18 15:03 97.7 F 66 18 144/84 12/20/18 14:35 98.3 F 59 L 18 143/93 12/20/18 13:34 60 18 12/20/18 13:00 62 18 12/20/18 12:33 65 18 115/83 12/20/18 12:20 67 20 151/85 12/20/18 11:51 97.7 F 68 22 153/88 Pulse Ox 12/21/18 04:00 92 L 12/21/18 00:00 94 L 12/20/18 20:00 95 12/20/18 15:03 96 12/20/18 14:35 98 12/20/18 13:34 98 12/20/18 13:00 12/20/18 12:33 96 12/20/18 12:20 12/20/18 11:51 98 Intake and Output 12/20/18 12/21/18 12/21/18 22:59 06:59 14:59 Intake Total 400 Balance 400 Intake: Oral 400 Other: Voiding Method Toilet Toilet - Constitutional General appearance: no acute distress - Respiratory Respiratory: bilateral: CTA - Cardiovascular Rhythm: regular Heart sounds: normal: S1, S2 Results 12/21/18 06:04 12/21/18 06:04 Cardiac Enzymes 12/20/18 12/20/18 12/20/18 Range/Units 12:09 12:09 17:25 AST 22 (17-59) U/L Troponin I <0.012 <0.012 (0.000-0.034) ng/mL 12/20/18 Range/Units 23:40 AST (17-59) U/L Troponin I <0.012 (0.000-0.034) ng/mL Coagulation 12/20/18 Range/Units 12:09 PT 10.7 (9.0-12.0) sec APTT 26.3 (22.0-30.0) sec Lipids 12/21/18 Range/Units 06:04 Triglycerides 126 (<150) mg/dL Cholesterol 95 (<200) mg/dL HDL Cholesterol 34 L (40-60) mg/dL CBC 12/20/18 12/21/18 Range/Units 12:09 06:04 WBC 6.9 6.3 (3.8-10.6) k/uL RBC 4.71 4.50 (4.30-5.90) m/uL Hgb 13.4 13.0 (13.0-17.5) gm/dL Hct 40.2 39.4 (39.0-53.0) % Plt Count 175 178 (150-450) k/uL Comprehensive Metabolic Panel 12/20/18 12/21/18 Range/Units 12:09 06:04 Sodium 142 139 (137-145) mmol/L Potassium 4.4 3.9 (3.5-5.1) mmol/L Chloride 107 105 (98-107) mmol/L Carbon Dioxide 25 27 (22-30) mmol/L BUN 20 19 (9-20) mg/dL Creatinine 0.92 0.88 (0.66-1.25) mg/dL Glucose 124 H 109 H (74-99) mg/dL Calcium 9.8 9.1 (8.4-10.2) mg/dL AST 22 (17-59) U/L ALT 20 L (21-72) U/L Alkaline Phosphatase 76 (38-126) U/L Total Protein 6.8 (6.3-8.2) g/dL Albumin 3.9 (3.5-5.0) g/dL Current Medications Generic Name Dose Route Start Last Admin Trade Name Freq PRN Reason Stop Dose Admin Hydrocodone Bitart/Acetaminophen 1 each 12/20/18 14:09 12/21/18 05:10 [place] 5-325 PO 1 each Q6HR PRN Administration Pain Albuterol/Ipratropium 3 ml 12/20/18 20:00 12/21/18 07:14 Duoneb 0.5 Mg-3 Mg/3 Ml Soln INHALATION Not Given RT-TID MARCEL Albuterol/Ipratropium 3 ml 12/20/18 16:25 Duoneb 0.5 Mg-3 Mg/3 Ml Soln INHALATION RT-TID PRN Shortness Of Breath Or Wheezing Apixaban 5 mg 12/20/18 21:00 12/20/18 21:08 Eliquis PO 5 mg BID [facility] Administration Aspirin 325 mg 12/21/18 09:00 Aspirin PO DAILY [facility] Atorvastatin Calcium 40 mg 12/21/18 09:00 Lipitor PO DAILY [facility] Cholecalciferol 2,000 unit 12/21/18 09:00 Vitamin D3 (25 Mcg = 1000 Iu) PO DAILY [facility] Cyanocobalamin 2,000 mcg 12/21/18 09:00 Vitamin B-12 PO DAILY [facility] Cyanocobalamin 1,000 mcg 12/20/18 15:00 12/20/18 15:51 Vitamin B-12 SQ Not Given Q30D [facility] Fluticasone Propionate 2 spray 12/21/18 09:00 Flonase Nasal [place] EA NOSTRIL DAILY [facility] Insulin Detemir 20 unit 12/20/18 21:00 12/20/18 19:42 Levemir SQ Not Given [facility] Metformin HCl 500 mg 12/20/18 21:00 12/20/18 21:08 Glucophage PO 500 mg BID [facility] Administration Metoprolol Succinate 50 mg 12/20/18 21:00 12/20/18 21:08 Toprol Xl PO 50 mg BID [facility] Administration Multivitamins 1 each 12/21/18 09:00 Theragran PO DAILY [facility] Nitroglycerin 0.4 mg 12/20/18 13:53 Nitrostat SUBLINGUAL Q5M PRN Chest Pain Nitroglycerin 1 inch 12/20/18 18:00 12/21/18 05:09 Nitro-Bid Oint TOPICAL 1 inch Q6HR [facility] Administration Pantoprazole Sodium 40 mg 12/21/18 07:30 Protonix PO AC-BRKFST [facility] Sodium Chloride 10 ml 12/20/18 21:00 12/20/18 21:09 Saline Flush IV Not Given BID [facility] Tamsulosin HCl 0.4 mg 12/21/18 09:00 Flomax PO DAILY [facility] Intake and Output 12/20/18 12/21/18 12/21/18 22:59 06:59 14:59 Intake Total 400 Balance 400 Intake: Oral 400 Other: Voiding Method Toilet Toilet 12/21/18 06:04 12/21/18 06:04 Assessment and Plan Assessment: Assessment #1 atypical chest discomfort #2 coronary artery disease and status post revascularization #3 paroxysmal atrial fibrillation #4 hypertension #5 dyslipidemia Plan #1 acute coronary event was ruled out #2 pulmonary impulse and was ruled out #3 I recommended the patient to get up and around for possible discharge home later on today Thank you for allowing us participate in the patient's care
[2018-12-21] MEDS ORDERED: ASPIRIN 325 MG TAB PO SCH (09:00)
[2018-12-21] MEDS ORDERED: FLUTICASONE 50MCG/SPRAY NASAL 16GM EA NOSTRIL SCH (09:00)
[2018-12-21] MEDS ORDERED: CHOLECALCIFEROL 1,000 UNIT TAB PO SCH (09:00)
[2018-12-21] MEDS ORDERED: TAMSULOSIN 0.4 MG CAP.ER.24H PO SCH (09:00)
[2018-12-21] MEDS ORDERED: ATORVASTATIN 40 MG TAB PO SCH (09:00)
[2018-12-21] MEDS ORDERED: CYANOCOBALAMIN 500 MCG TAB PO SCH (09:00)
[2018-12-21] MEDS ORDERED: MULTIVITAMINS, THERA 1 EACH TAB PO SCH (09:00)
[2018-12-21 09:24] VITALS: BP 110/68; PULSE 58; RESP 16; TEMP 97.8
[2018-12-21] MEDS: METOPROLOL SUCCINATE (ER) 50 MG TAB.ER.24H PO SCH (09:31)
[2018-12-21] MEDS: APIXABAN 5 MG TAB PO SCH (09:31)
[2018-12-21] MEDS: metFORMIN 500 MG TAB PO SCH (09:31)
--- NOTE | 2018-12-21 12:34 | DS ---
DISCHARGE SUMMARY DATE OF SERVICE: 12/21/2018 FINAL DIAGNOSES: 1. Chest pain. possibly unstable angina, possibly musculoskeletal, improved. 2. Elevated D-dimer with no evidence of pulmonary embolism. 3. Hypomagnesemia. 4. Persistent atelectasis. 5. History of recent coronary artery disease, coronary artery bypass grafting. 6. History of atrial fibrillation, history of cerebrovascular accident, transient ischemic attack. 7. Diabetes mellitus type 2. 8. History of gastroesophageal reflux disease. 9. Hypertension. 10.Hyperlipidemia. 11.History of degenerative joint disease. 12.History of prostate disorder. 13.History of transient ischemic attack. 14.History of pernicious anemia with monthly injections. 15.History of hiatal hernia. 16.Benign prostatic hypertrophy. 17.History of chronic leg edema. 18.History of spinal stenosis. 19.History of cardiac catheterization. 20.Obesity with body mass index of 44.9. DISCHARGE DISPOSITION: Patient will be discharged in stable condition with guarded prognosis. HISTORY OF PRESENT ILLNESS: This is a 73-year-old gentleman with a past medical history of multiple medical problems being followed by Dr. Weathers in the outpatient setting was admitted with chest pain, myocardial infarction ruled out. Cardiology saw the patient. Chest CTA was negative for pulmonary embolism. Patient improved significantly. On exam, vitals are stable. CARDIOVASCULAR SYSTEM: S1, S2. ABDOMEN: Soft. NERVOUS SYSTEM: No focal deficits. Patient will be discharged in a stable condition with guarded prognosis. FOLLOWING MEDICATIONS AND ACTIVITIES: 1. Diet is cardiac diet. 2. Follow up with Dr. Weathers in 1-2 days. 3. Followup with Cardiology as recommended. MEDICATIONS ARE: 1. Flomax 0.4 daily. 2. Flonase 2 sprays daily. 3. Lantus 20 units subcu q.h.s. 4. Multivitamins 1 p.o. daily. 5. Metformin 500 mg p.o. b.i.d. 6. [place] 5 mg q.6 p.r.n. 7. Protonix 40 mg q.a.m. 8. Toprol-XL 50 mg p.o. b.i.d. 9. Vitamin B12 two thousand mcg p.o. daily. 10.Vitamin B12 one thousand mcg subcu 30 days. 11.Vitamin D3 two thousand daily. 12.Aspirin 81 mg p.o. daily. 13.Eliquis 5 mg p.o. b.i.d. 14.Lipitor 40 mg p.o. daily. 15.Nitrostat 0.4 sublingual p.r.n. 16.ProAir 2 puffs q.6. Once again the patient will be discharged in a stable condition with guarded prognosis. MMODL / IJN: [id number] /
== END 2018-12-21 12:15 | disposition home or self-care (01) ==
LOC: EC 11:51 → 1SOBS 13:59
PROVIDERS: ADMIT Hospitalist; ATTEND Hospitalist
DX: R07.89 Other chest pain (principal); R79.89 Other specified abnormal findings of blood chemistry; E83.42 Hypomagnesemia; J98.11 Atelectasis; Z95.1 Presence of aortocoronary bypass graft; I25.10 Atherosclerotic heart disease of native coronary artery without angina pectoris; I48.0 Paroxysmal atrial fibrillation; Z86.73 Personal history of transient ischemic attack (TIA), and cerebral infarction without residual deficits; E11.9 Type 2 diabetes mellitus without complications; K21.9 Gastro-esophageal reflux disease without esophagitis; I10 Essential (primary) hypertension; E78.5 Hyperlipidemia, unspecified; M19.90 Unspecified osteoarthritis, unspecified site; D51.0 Vitamin B12 deficiency anemia due to intrinsic factor deficiency; N40.0 Benign prostatic hyperplasia without lower urinary tract symptoms; K44.9 Diaphragmatic hernia without obstruction or gangrene; G89.29 Other chronic pain; M54.5 Low back pain; M54.2 Cervicalgia; R60.0 Localized edema; M48.061 Spinal stenosis, lumbar region without neurogenic claudication; Z68.42 Body mass index [BMI] 45.0-49.9, adult; E66.9 Obesity, unspecified; Z85.828 Personal history of other malignant neoplasm of skin; M48.00 Spinal stenosis, site unspecified; I87.2 Venous insufficiency (chronic) (peripheral); Z90.49 Acquired absence of other specified parts of digestive tract; Z79.82 Long term (current) use of aspirin; Z79.01 Long term (current) use of anticoagulants; Z79.899 Other long term (current) drug therapy; Z79.4 Long term (current) use of insulin; Z79.891 Long term (current) use of opiate analgesic; Z88.5 Allergy status to narcotic agent; Z88.1 Allergy status to other antibiotic agents; Z82.49 Family history of ischemic heart disease and other diseases of the circulatory system; Z83.3 Family history of diabetes mellitus; Z82.5 Family history of asthma and other chronic lower respiratory diseases; Z80.9 Family history of malignant neoplasm, unspecified
CPT/HCPCS: 96365; 99285; 36415; 93005; 85379; 80061; 80053; 80048; 83735 ×2; 84484; 85025 ×2; 85610; 85730; 71046; 71275; G0378 ×2; J3475; Q9967

== ENCOUNTER → 2020-01-11 | Outpatient (CLI) | payer MEDICARE, BC ==
--- NOTE | 2020-01-11 19:16 | CT ---
EXAMINATION TYPE: CT chest wo con DATE OF EXAM: 01/11/2020 COMPARISON: 12/20/2018 HISTORY: Chest pains (sternal nonunion) CT DLP: 930.3 mGycm, Automated exposure control for dose reduction was used. CONTRAST: Performed injected with 0 mL of Isovue 300. TECHNIQUE: Axial images were obtained at 5 mm thick sections. Reconstructed images are reviewed on [employer] computer in the coronal plane. FINDINGS: Portion of the thyroid visualized is normal. No suspicious lung nodules or focal infiltrates are present. No enlarged mediastinal or hilar adenopathy is evident. The ascending aorta diameter at the level o f the main pulmonary artery is 4.5 cm. The main pulmonary artery diameter at the bifurcation is 3.3 cm. Coronary artery calcification is noted. Limited CT sections are obtained through the upper abdomen. Abdomen is essentially unremarkable. 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 Nonunion at the inferior portion is also evide nt. Mid sternum appears fused. IMPRESSIONS: 1. 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
== END | disposition home or self-care (01) ==
LOC: RADCTMAIN 09:49
PROVIDERS: ATTEND Surgery
DX: S22.20XA Unspecified fracture of sternum, initial encounter for closed fracture (principal)
CPT/HCPCS: 71250

== ENCOUNTER 2020-09-22 14:22 | Observation (INO) | payer MEDICARE, BC ==
[2020-09-22] MEDS ORDERED: MORPHINE SULFATE 4 MG/ML SYRINGE IVP STA (14:57)
[2020-09-22] MEDS ORDERED: ASPIRIN 81 MG PO STA (14:57)
[2020-09-22 15:05] LABS: Basophils # (A) 0.1 k/uL (0-0.2); Basophils % (A) 1 %; Eosinophils # (A) 0.4 k/uL (0-0.7); Eosinophils % (A) 3 %; HCT 43.1 % (39.0-53.0); HGB 14.9 gm/dL (13.0-17.5); Lymphocytes # (A) 2.5 k/uL (1.0-4.8); Lymphocytes % (A) 24 %; MCH 29.7 pg (25.0-35.0); MCHC 34.5 g/dL (31.0-37.0); Mean Platelet Volume 7.6; Monocytes # (A) 0.8 k/uL (0-1.0); Monocytes % (A) 8 %; Neutrophils # (A) 6.6 k/uL (1.3-7.7); Neutrophils % (A) 64 %; Platelet Count 165 k/uL (150-450); RBC 5.01 m/uL (4.30-5.90); RDW 14.3 % (11.5-15.5); WBC 10.3 k/uL (3.8-10.6)
--- NOTE | 2020-09-22 15:07 | ED ---
Chest Pain HPI - General Chief Complaint: Chest Pain Stated Complaint: chest pain,SOB Time Seen by Provider: 09/22/20 14:36 Source: patient Mode of arrival: ambulatory Limitations: no limitations - History of Present Illness Initial Comments: Is a 74-year-old male with a history of hypertension, diabetes, hyperlipidemia, CAD status post CABG who presents emergency department for chest pain. The patient states that it started earlier this morning while he was at [employer]. He states it's left sided and was sharp at first however now is more of a pressure sensation. He states that it radiates to his left shoulder blade and into his left arm. He also has an associated mild posterior headache. The patient drove himself to the emergency department because he was concerned because of his history of CAD. He denies any associated lightheadedness, nausea, vomiting, or diaphoresis. States that it does seem to get worse when he takes a deep breath however he does not feel significantly short of breath. Denies any abdominal pain or diarrhea. No lower [place] pain or swelling. Per the the patient has been under quite a bit of stress recently because of some of her medical issues however states that he is always seems to be very stressed out. The patient did not take any medications prior to arrival. - Related Data Home Medications Medication Instructions Recorded Confirmed Multivitamin [Men's Multi-Vitamin] 1 tab PO DAILY 04/01/15 12/20/18 Cholecalciferol [Vitamin D3 (25 2,000 unit PO DAILY 09/30/15 12/20/18 Mcg = 1000 Iu)] Cyanocobalamin [Vitamin B-12 1,000 mcg SQ Q30D 09/27/17 12/20/18 Injection] Cyanocobalamin (Vitamin B-12) 2,000 mcg PO DAILY 10/09/18 12/20/18 [Vitamin B-12] Tamsulosin HCl [Flomax] 0.4 mg PO DAILY 10/09/18 12/20/18 Fluticasone Nasal [place] [Flonase 2 spr EA NOSTRIL DAILY 12/20/18 12/20/18 Nasal [place]] HYDROcodone/APAP 5-325MG [[place] 1 tab PO Q6HR PRN 12/20/18 12/20/18 5-325] Insulin Glargine [Lantus] 20 unit SQ HS 12/20/18 12/20/18 Metoprolol Succinate (ER) [Toprol 50 mg PO BID 12/20/18 12/20/18 XL] Pantoprazole [Protonix] 40 mg PO QAM 12/20/18 12/20/18 metFORMIN HCL 500 mg PO BID 12/20/18 12/20/18 Previous Rx's Medication Instructions Recorded Apixaban [Eliquis] 5 mg PO BID tab 10/18/18 Aspirin 81 mg PO DAILY chew 10/18/18 Atorvastatin [Lipitor] 40 mg PO DAILY tab 10/18/18 Albuterol Sulfate [Proair Hfa] 2 puff INHALATION Q6HR #1 inhaler 12/21/18 Nitroglycerin Sl Tabs [Nitrostat] 0.4 mg SUBLINGUAL Q5M PRN #30 tab 12/21/18 Allergies Allergy/AdvReac Type Severity Reaction Status Date / Time azithromycin [From Zithromax] AdvReac Nausea & Verified 09/22/20 14:26 Vomiting codeine AdvReac Nausea & Verified 09/22/20 14:26 Vomiting Review of Systems ROS Statement: Those systems with pertinent positive or pertinent negative responses have been documented in the HPI. ROS Other: All systems not noted in ROS Statement are negative. EKG Findings - EKG Comments: EKG Findings:: EKG showing normal sinus rhythm with a rate of 62. There is a right bundle-branch block. No abnormal ST segment changes or T-wave inversions. QTC is 452. QRS is slightly widened. No ectopy. Past Medical History Past Medical History: Atrial Fibrillation, Cancer, CVA/TIA, Diabetes Mellitus, Eye Disorder, GERD/Reflux, Hyperlipidemia, Hypertension, Osteoarthritis (OA), Prostate Disorder, Skin Disorder, Vascular Disorder Additional Past Medical History / Comment(s): IDDM type II, post CABG A fib, TIA years ago, pernicious anemia with monthly injections, hiatal hernia, BPH, venous insufficiency, occasional lower leg/pedal edema, spinal stenosis, herniated disc L1, spinal cyst, chronic low back pain, rare cervical pain, History of Any Multi-Drug Resistant Organisms: None Reported Past Surgical History: Bowel Resection, Cholecystectomy, Coronary Bypass/CABG, Heart Catheterization, Hernia Repair, Joint Replacement Additional Past Surgical History / Comment(s): 10/2018 CABG 2 vessels, Bilateral knees replaced with R side done twice, bowel resection when pt was 12 yrs old d/t obstruction, umbilical hernia repair, skin cancer removed from mid back, colonoscopy, back injections in past, bilateral cataract removals with lens implants. Past Anesthesia/Blood Transfusion Reactions: No Reported Reaction Past Psychological History: No Psychological Hx Reported Smoking Status: Never smoker Past Alcohol Use History: None Reported Past Drug Use History: None Reported - Past Family History Father Family Medical History: Congestive Heart Failure (CHF), CVA/TIA Additional Family Medical History / Comment(s): at age 68 Brother(s) Family Medical History: Cancer, COPD, Diabetes Mellitus Additional Family Medical History / Comment(s): heart problems Mother Family Medical History: Myocardial Infarction ([place]) Additional Family Medical History / Comment(s): at 79 w/ [place] General Exam - General Exam Comments Initial Comments: Constitutional: Awake alert Appears comfortable Head: Normocephalic atraumatic Eyes: no conjunctival injection No scleral icterus EOMI Neck: No JVD Supple Heart: Regular rate rhythm normal S1-S2 no murmurs Lungs: Clear to auscultation bilaterally No wheezing No rales Abdomen: Soft nondistended nontender Extremities: Non edematous DP pulses intact and equal Radial pulses intact and equal Neuro: A&Ox3 No focal neurologic deficits Psych: Appropriate mood and affect Limitations: no limitations Course Vital Signs 09/22/20 09/22/20 09/22/20 14:22 15:00 16:42 Temperature 97.8 F Pulse Rate 68 57 L 49 L Respiratory 18 16 Rate Blood Pressure 124/78 122/77 128/78 O2 Sat by Pulse 94 L 95 97 Oximetry Chest Pain MDM - MDM This 74-year-old male who presents emergency department for chest pain. The patient was given aspirin and morphine on arrival with great improvement in his symptoms. Vital signs are stable on her arrival and throughout his ED stay. EKG was unremarkable for any ischemic changes. Troponin was negative. CT of the chest abdomen and pelvis did not reveal any emergent pathology. He does have a 4.2 cm dilation of his thoracic aorta. Due to the patient's significant past medical history for CAD he's can be watched overnight in observation. The patient family agreed with this plan. Dr. Montano excepted the patient for admission. Disposition Clinical Impression: Chest pain Disposition: ADMITTED IP TO THIS HOSP Condition: Stable Referrals: Triny Weathers DO [Primary Care Provider] - 1-2 days
[2020-09-22 15:13] LABS: Albumin 3.4 g/dL (3.5-5.0); Calcium 9.1 mg/dL (8.4-10.2); Total Bilirubin 0.9 mg/dL (0.2-1.3); Total Protein 5.8 g/dL (6.3-8.2)
[2020-09-22 15:16] LABS: Partial Thromboplastin Time 22.1 sec (22.0-30.0); Prothrombin Time 10.9 sec (9.0-12.0)
--- NOTE | 2020-09-22 15:29 | XR ---
EXAMINATION TYPE: XR chest 2V DATE OF EXAM: 09/22/2020 COMPARISON: 12/20/2018 HISTORY: Chest pain TECHNIQUE: FINDINGS: There is no heart failure nor confluent pneumonic infiltrate. There are sternal wires. Ther e are chest leads. Costophrenic angles are clear. There is some spurring in the thoracic spine. IMPRESSION: No active cardiopulmonary disease. No adverse change.
[2020-09-22] MEDS ORDERED: POTASSIUM CHLORIDE ER 20 MEQ TAB.ER PO STA (15:37)
--- NOTE | 2020-09-22 17:23 | CT ---
EXAMINATION TYPE: CT angio thor/abd pel aorta DATE OF EXAM: 09/22/2020 COMPARISON: 12/20/2018 HISTORY: Chest pain, SOB. Hx bypass. CT DLP: 1932.6 mGycm Automated exposure control for dose reduction was used. CONTRAST: Performed with IV Contrast, patient injected with 100 mL of Isovue 370. Images obtained from the thoracic inlet to the diaphragm without contrast. Images obtained from the t horacic inlet to the mid pelvis with IV contrast and 3-D post processed images. Thoracic aorta is intact. There is no aortic dissection. There is coronary artery calcification. Ther e is no mediastinal adenopathy. There are no hilar masses. I see no filling defects in the pulmonary arteries. The lungs are clear of infiltrate. There is no evidence of a pulmonary mass. There is no pl eural effusion. There is no pericardial effusion.The ascending aorta measures 4.2 cm. Liver spleen pancreas appear intact. The bile is are not dilated. There are clips from cholecystectom y. The stomach is intact. There is no adrenal mass.. Kidneys show satisfactory contrast opacification . There is no hydronephrosis. There is 4 cm cortical cyst posterior left kidney. The ureters are not dilated. There is no retroperitoneal adenopathy. There is no mesenteric edema. There is no ascites or free air. There is no bowel obstruction. Appendix is not seen. There is no sign of thickened appendi x. There is arterial flow in the celiac artery and superior mesenteric artery. There is arterial flow in the renal and iliac arteries. There is minimal plaque formation. I see no evidence of hemodynamic st enosis. Thoracic and lumbar vertebra appear intact. There is no compression fracture. There are sternal wires . Posterior elements are intact. I see no bony destructive process. IMPRESSION: There is minimal subsegmental atelectasis left lung base. No evidence of pulmonary embolism. 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 No evidence of arterial dissection. There is improvement in the atele ctasis at the lung bases compared to old exam.
[2020-09-22] MEDS ORDERED: NITROGLYCERIN SL TABS 0.4 MG TAB SUBLINGUAL PRN (18:28)
[2020-09-23 05:22] VITALS: RESP 18
[2020-09-23] MEDS ORDERED: ASPIRIN 325 MG TAB PO SCH (09:00)
[2020-09-23] MEDS ORDERED: POTASSIUM CHLORIDE ER 20 MEQ TAB.ER PO STA (10:06)
[2020-09-23 11:27] LABS: Chol/HDL Ratio 3.57; LDL Cholesterol,Calculated 29.8 mg/dL (0.0-131.0); VLDL Calculation 47.2 mg/dL (5.00-40.00)
--- NOTE | 2020-09-23 13:04 | CONS ---
CONSULTATION HISTORY OF PRESENT ILLNESS: Mr. Pimentel is a 74-year-old male who is followed by Dr. Bianca Sprague on a regular basis with a history of coronary artery disease, history of aortic valve disease, hypertension, hyperlipidemia, diabetes mellitus, who presented with left arm discomfort. The discomfort occurred while he was driving and predominantly in the left arm radiating to the chest. The discomfort resolved upon his arrival. The patient is not very active physically. He has a history of dyspnea on exertion. He has no significant lower extremity edema, but he has been complaining of swelling in the left arm more recently and has been given steroids with some improvement in his symptoms. He denies any palpitation. No syncope. In September of 2018 he underwent coronary artery bypass grafting where he received a CHE [id number] to the diagonal branch and subsequently to the LAD. He has been under increased amount of stress recently with an illness of his . He has no PND, no orthopnea. He has no palpitation or syncope. He has a history of aortic valve disease and underwent echocardiogram recently that was reported showing evidence of severe aortic stenosis. His coronary risk factors are remarkable for the hypertension, hyperlipidemia, diabetes. He is a nonsmoker. MEDICATIONS: Include metoprolol succinate 50 mg twice a day, Protonix, Flomax, metformin 500 mg twice a day, aspirin once a day, Invokana 300 mg daily, Zestril 10 mg daily, vitamin D, Lipitor 40 mg daily, vitamin B and multivitamins. REVIEW OF SYSTEMS: Respiratory system: He has dyspnea on exertion. No recent wheezing or cough. GI system: No recent GI bleeding. No peptic ulcer disease. system: No dysuria or hematuria. Nervous system: No history of stroke or seizure. PHYSICAL EXAMINATION: 74-year-old male, alert, oriented, in no apparent distress. Blood pressure 120/70 with a heart rate in 60s. HEAD: Normocephalic. Eyes sclerae anicteric. NECK: Good upstroke. No bruit. LUNGS: Clear to auscultation. HEART: Regular rate and rhythm S1, S2. No S3 with systolic murmur, ejection type 3/6 early peaking. No diastolic murmur. No rub. ABDOMEN: Soft, obese, nontender. Positive bowel sounds. No megaly. EXTREMITIES: Trace edema. Both hands with mild swelling but intact pulses. LAB DATA: Lab data revealed troponin less than 0.012, 0.015 and 0.018. BUN and creatinine 26 and 1.01, potassium 3.0, hemoglobin 14.9, white blood cell of 10.3 EKG revealed a sinus mechanism with PACs and right bundle branch block. Chest x-ray shows no evidence of acute infiltrate. Chest CT angiogram shows no evidence of pulmonary embolism with a 4.2 cm ascending aorta. IMPRESSION: 1. Transient ischemic attack. Left arm discomfort that appears to be musculoskeletal in etiology. No evidence to suggest acute ischemic event. 2. History of coronary artery disease status post coronary artery bypass grafting with no evidence to suggest acute coronary syndrome. 3. Aortic stenosis, severe by most recent echocardiogram. 4. Hypertension. 5. Hyperlipidemia. 6. Diabetes mellitus. 7. Arthritis. 8. Obesity. RECOMMENDATION: From the cardiac standpoint, I will resume his home medications. Increase his level of activity. If he remains stable, I would expect he should be able to be discharged home and followed as an outpatient with Dr. Sprague to further evaluate the aortic valve and proceed with further testing. Thank you for this consult. We will follow with you. MMODL / IJN: [id number] /
--- NOTE | 2020-09-23 14:20 | P.HPIM ---
History of Present Illness 69-year-old male came in with compensative chest pain was started yesterday pleuritic in nature moderate chest pain. No associated shortness of breath life diaphoresis lightheadedness patient had a stress test a few months ago which was negative. Patient the was admitted to rule out acute coronary syndromes troponins were negative EKG did not show any acute ST-T wave changes patient was also complaining of for this pain radiating to the shoulder blade area patient had cholecystectomy in the past. Patient had a CT of the chest which did not show any pulmonary embolism or aortic aneurysmal rupture or pneumonia. Patient was evaluated by cardiology. Patient had a recent echo cardiac exam which showed severe aortic stenosis. Cardiology cleared for him for discharge patient chest pain is to be musculoskeletal and will be discharged today. Patient has been taking steroids for last 5 days for ALLERGY-induced edema of both hands that edema improved at this time. Patient was recommended to follow with his chief radiologic technologist aortic stenosis. Review of Systems REVIEW OF SYSTEMS: CONSTITUTIONAL: No fever, no malaise, no fatigue. HEENT: No recent visual problems or hearing problems. Denied any sore throat. CARDIOVASCULAR: No orthopnea, PND, no palpitations, no syncope. PULMONARY: No shortness of breath, no cough, no hemoptysis. GASTROINTESTINAL: No diarrhea, no nausea, no vomiting, no abdominal pain. NEUROLOGICAL: No headaches, no weakness, no numbness. HEMATOLOGICAL: Denies any bleeding or petechiae. GENITOURINARY: Denies any burning micturition, frequency, or urgency. MUSCULOSKELETAL/RHEUMATOLOGICAL: Denies any joint pain, swelling, or any muscle pain. ENDOCRINE: Denies any polyuria or polydipsia. The rest of the 14-point review of systems is negative. Past Medical History Past Medical History: Atrial Fibrillation, Coronary Artery Disease (CAD), Cancer, CVA/TIA, Diabetes Mellitus, GERD/Reflux, Hyperlipidemia, Hypertension, Osteoarthritis (OA), Prostate Disorder, Skin Disorder, Vascular Disorder Additional Past Medical History / Comment(s): Recent bilateral hand edema past 3 weeks, IDDM type II, post CABG A fib, TIA years ago, pernicious anemia with monthly injections, hiatal hernia, BPH, venous insufficiency, occasional lower leg/pedal edema, spinal stenosis, herniated disc L1, spinal cyst, chronic low back pain, rare cervical pain, benign colon polyp, covid + 06/2019. History of Any Multi-Drug Resistant Organisms: None Reported Past Surgical History: Bowel Resection, Cholecystectomy, Coronary Bypass/CABG, Heart Catheterization, Hernia Repair, Joint Replacement Additional Past Surgical History / Comment(s): 10/2018 CABG 2 vessels, Bilateral knees replaced with R side done twice, bowel resection when pt was 12 yrs old d/t obstruction, umbilical hernia repair, skin cancer removed from mid back, colonoscopy, back injections in past, bilateral cataract removals with lens implants. Past Anesthesia/Blood Transfusion Reactions: No Reported Reaction Smoking Status: Never smoker - Past Family History Father Family Medical History: Congestive Heart Failure (CHF), CVA/TIA Additional Family Medical History / Comment(s): at age 68 Brother(s) Family Medical History: Cancer, COPD, Diabetes Mellitus Additional Family Medical History / Comment(s): heart problems Mother Family Medical History: Myocardial Infarction ([place]) Additional Family Medical History / Comment(s): at 79 w/ [place] Medications and Allergies Home Medications Medication Instructions Recorded Confirmed Type Multivitamin [Men's Multi-Vitamin] 1 tab PO DAILY 04/01/15 09/22/20 History Cyanocobalamin (Vitamin B-12) 1,000 mcg PO HS 10/09/18 09/22/20 History [Vitamin B-12] Tamsulosin HCl [Flomax] 0.4 mg PO DAILY 10/09/18 09/22/20 History Aspirin 81 mg PO DAILY chew 10/18/18 09/22/20 Rx Metoprolol Succinate (ER) [Toprol 50 mg PO BID 12/20/18 09/22/20 History XL] Pantoprazole [Protonix] 40 mg PO DAILY 12/20/18 09/22/20 History metFORMIN HCL 500 mg PO BID 12/20/18 09/22/20 History Atorvastatin [Lipitor] 40 mg PO HS 09/22/20 09/22/20 History Canagliflozin [Invokana] 300 mg PO DAILY 09/22/20 09/22/20 History Cholecalciferol [Vitamin D3 (25 50 mcg PO DAILY 09/22/20 09/22/20 History Mcg = 1000 Iu)] Lisinopril [Zestril] 10 mg PO DAILY 09/22/20 09/22/20 History Allergies Allergy/AdvReac Type Severity Reaction Status Date / Time azithromycin [From Zithromax] AdvReac Nausea & Verified 09/22/20 18:49 Vomiting codeine AdvReac Nausea & Verified 09/22/20 18:49 Vomiting Physical Exam Vitals: Vital Signs Temp Pulse Resp BP Pulse Ox 09/23/20 12:49 61 18 129/91 09/23/20 11:14 61 18 137/78 97 09/23/20 09:52 53 L 18 115/68 09/23/20 08:38 97.9 F 62 18 120/78 97 09/23/20 06:00 68 103/56 96 09/23/20 05:20 70 18 113/56 97 09/23/20 04:00 59 L 102/51 97 09/23/20 02:00 61 107/61 95 09/23/20 00:00 59 L 17 124/55 98 09/22/20 22:00 57 L 123/69 09/22/20 21:34 53 L 123/69 96 09/22/20 20:00 62 105/60 98 09/22/20 18:00 52 L 118/74 97 09/22/20 16:42 49 L 16 128/78 97 09/22/20 16:00 54 L 111/61 96 09/22/20 15:00 57 L 122/77 95 09/22/20 14:22 97.8 F 68 18 124/78 94 L Intake and Output 09/22/20 09/23/20 09/23/20 22:59 06:59 14:59 Other: Weight 149.685 kg PHYSICAL EXAMINATION: GENERAL: The patient is alert and oriented x3, not in any acute distress. Well developed, well nourished. HEENT: Pupils are round and equally reacting to light. EOMI. No scleral icterus. No conjunctival pallor. Normocephalic, atraumatic. No pharyngeal erythema. No thyromegaly. CARDIOVASCULAR: S1 and S2 present. No murmurs, rubs, or gallops. PULMONARY: Chest is clear to auscultation, no wheezing or crackles. ABDOMEN: Soft, nontender, nondistended, normoactive bowel sounds. No palpable organomegaly. MUSCULOSKELETAL: No joint swelling or deformity. EXTREMITIES: No cyanosis, clubbing, or pedal edema. NEUROLOGICAL: Gross neurological examination did not reveal any focal deficits. SKIN: No rashes. Results CBC & Chem 7: 09/22/20 14:58 09/22/20 14:58 Labs: Abnormal Lab Results - Last 24 Hours (Table) 09/22/20 09/22/20 Range/Units 14:58 14:58 Potassium 3.0 L (3.5-5.1) mmol/L Chloride 108 H (98-107) mmol/L BUN 26 H (9-20) mg/dL Glucose 149 H (74-99) mg/dL Total Protein 5.8 L (6.3-8.2) g/dL Albumin 3.4 L (3.5-5.0) g/dL Triglycerides 236.0 H (0.0-149.0) mg/dL VLDL Cholesterol, Calc 47.20 H (5.00-40.00) mg/dL HDL Cholesterol 30.0 L (40.0-60.0) mg/dL Thrombosis Risk Factor Assmnt - Choose All That Apply Any of the Below Risk Factors Present?: Yes Each Factor Represents 1 point: Obesity (BMI >25) Other Risk Factors: Yes Each Risk Factor Represents 2 Points: Malignancy Each Risk Factor Represents 3 Points: Age 75 years or older Other congenital or acquired thrombophilia - If yes, enter type in comment: No Thrombosis Risk Factor Assessment Total Risk Factor Score: 6 Thrombosis Risk Factor Assessment Level: High Risk Assessment and Plan Plan: Chest pain: Ruled out acute coronary syndromes ruled out pulmonary embolism or pneumonia. Patient appears to be muscular spelled the chest pain cleared by cardiology patient will be discharged today -Coronary disease and CABG in the past -Severe right external stenosis follow-up as an outpatient - hypertension -Hyperlipidemia -Type 2 diabetes mellitus -Gases visual reflux disease -Obesity
--- NOTE | 2020-09-23 14:20 | P.DS ---
Providers Date of admission: 09/22/20 18:28 Attending physician: Kush Izaguirre MD Consults: 09/22/20 18:28 Consult Physician Urgent Consulting Provider: [facility] Consult Reason/Comments: chest pain Do you want consulting provider notified?: Yes Primary care physician: Triny Weathers [facility] Course: Refer to my HPI for further details Patient Condition at Discharge: Stable Plan - Discharge Summary Discharge Rx Participant: No New Discharge Prescriptions: Continue Multivitamin [Men's Multi-Vitamin] 1 tab PO DAILY Tamsulosin HCl [Flomax] 0.4 mg PO DAILY Cyanocobalamin (Vitamin B-12) [Vitamin B-12] 1,000 mcg PO HS Aspirin 81 mg PO DAILY chew metFORMIN HCL 500 mg PO BID Metoprolol Succinate (ER) [Toprol XL] 50 mg PO BID Pantoprazole [Protonix] 40 mg PO DAILY Lisinopril [Zestril] 10 mg PO DAILY Canagliflozin [Invokana] 300 mg PO DAILY Atorvastatin [Lipitor] 40 mg PO HS Cholecalciferol [Vitamin D3 (25 Mcg = 1000 Iu)] 50 mcg PO DAILY Discharge Medication List Multivitamin [Men's Multi-Vitamin] 1 tab PO DAILY 04/01/15 [History] Cyanocobalamin (Vitamin B-12) [Vitamin B-12] 1,000 mcg PO HS 10/09/18 [History] Tamsulosin HCl [Flomax] 0.4 mg PO DAILY 10/09/18 [History] Aspirin 81 mg PO DAILY chew 10/18/18 [Rx] Metoprolol Succinate (ER) [Toprol XL] 50 mg PO BID 12/20/18 [History] Pantoprazole [Protonix] 40 mg PO DAILY 12/20/18 [History] metFORMIN HCL 500 mg PO BID 12/20/18 [History] Atorvastatin [Lipitor] 40 mg PO HS 09/22/20 [History] Canagliflozin [Invokana] 300 mg PO DAILY 09/22/20 [History] Cholecalciferol [Vitamin D3 (25 Mcg = 1000 Iu)] 50 mcg PO DAILY 09/22/20 [History] Lisinopril [Zestril] 10 mg PO DAILY 09/22/20 [History] Follow up Appointment(s)/Referral(s): Sean Sprague MD [STAFF PHYSICIAN] - 1 Week Triny Weathers DO [Primary Care Provider] - 3 Days Discharge Disposition: HOME SELF-CARE
[2020-09-23 14:26] VITALS: BP 121/74; PULSE 67; TEMP 97.8
[2020-09-23] MEDS ORDERED: metFORMIN 500 MG TAB PO SCH (21:00)
[2020-09-23] MEDS ORDERED: METOPROLOL SUCCINATE (ER) 50 MG TAB.ER.24H PO SCH (21:00)
[2020-09-23] MEDS ORDERED: ATORVASTATIN 40 MG TAB PO SCH (21:00)
[2020-09-24] MEDS ORDERED: CHOLECALCIFEROL 25 MCG (1000 IU) TABLET PO SCH (09:00)
[2020-09-24] MEDS ORDERED: MULTIVITAMINS, THERA 1 EACH TAB PO SCH (09:00)
[2020-09-24] MEDS ORDERED: PANTOPRAZOLE 40 MG TABLET PO SCH (09:00)
[2020-09-24] MEDS ORDERED: ASPIRIN 81 MG PO SCH (09:00)
[2020-09-24] MEDS ORDERED: lisinopriL 10 MG TAB PO SCH (09:00)
[2020-09-24] MEDS ORDERED: TAMSULOSIN 0.4 MG CAP.ER.24H PO SCH (09:00)
== END 2020-09-23 14:37 | disposition home or self-care (01) ==
LOC: EC 14:22 → 6NMEDSUR 18:28
PROVIDERS: ADMIT Internal Medicine; ATTEND Internal Medicine
DX: R07.81 Pleurodynia (principal); I25.10 Atherosclerotic heart disease of native coronary artery without angina pectoris; Z95.1 Presence of aortocoronary bypass graft; I35.0 Nonrheumatic aortic (valve) stenosis; I10 Essential (primary) hypertension; E78.5 Hyperlipidemia, unspecified; K21.9 Gastro-esophageal reflux disease without esophagitis; E66.9 Obesity, unspecified; Z68.41 Body mass index [BMI] 40.0-44.9, adult; R60.0 Localized edema; I48.91 Unspecified atrial fibrillation; M19.90 Unspecified osteoarthritis, unspecified site; D51.0 Vitamin B12 deficiency anemia due to intrinsic factor deficiency; N40.0 Benign prostatic hyperplasia without lower urinary tract symptoms; M79.602 Pain in left arm; R06.09 Other forms of dyspnea; M79.89 Other specified soft tissue disorders; R51.9 Headache, unspecified; G89.29 Other chronic pain; M54.5 Low back pain; E11.9 Type 2 diabetes mellitus without complications; Z63.79 Other stressful life events affecting family and household; Z86.16 Personal history of COVID-19; Z20.822 Contact with and (suspected) exposure to COVID-19; Z86.010 Personal history of colon polyps; Z85.828 Personal history of other malignant neoplasm of skin; Z86.73 Personal history of transient ischemic attack (TIA), and cerebral infarction without residual deficits; Z90.49 Acquired absence of other specified parts of digestive tract; Z96.653 Presence of artificial knee joint, bilateral; Z96.1 Presence of intraocular lens; Z79.899 Other long term (current) drug therapy; Z79.82 Long term (current) use of aspirin; Z79.4 Long term (current) use of insulin; Z88.5 Allergy status to narcotic agent; Z88.1 Allergy status to other antibiotic agents; Z82.5 Family history of asthma and other chronic lower respiratory diseases; Z83.3 Family history of diabetes mellitus; Z82.49 Family history of ischemic heart disease and other diseases of the circulatory system; Z82.3 Family history of stroke; Z80.9 Family history of malignant neoplasm, unspecified
CPT/HCPCS: 96374; 99285; 36415; 93005 ×2; 83880; 80061; 80053; 84484; 85025; 85610; 85730; 87635; 71046; 71275; 74174; G0378 ×2; J2270; Q9967

== ENCOUNTER → 2020-12-20 | Outpatient (CLI) | payer MEDICARE, BC ==
--- NOTE | 2020-12-20 12:57 | FL ---
ESOPHOGRAM. HISTORY: Dysphagia Esophagram was performed per the air contrast technique. The patient swallowed barium and effervesce nt crystals without difficulty or delay. Tertiary contractions are noted compatible with presbyesophagus. There is no evidence for filling defect, mass or diverticulum. Small reducible hiatal hernia noted. Subsequently single contrast cervical esophagram was performed which fails demonstrate evidence for a spiration penetration or mass. IMPRESSION: 1. Presbyesophagus. 2. Small reducible hiatal hernia.
== END | disposition home or self-care (01) ==
LOC: RADUSWWP 10:42
PROVIDERS: ATTEND Family Medicine
DX: K44.9 Diaphragmatic hernia without obstruction or gangrene (principal); K22.8 Other specified diseases of esophagus
CPT/HCPCS: 74220

== ENCOUNTER 2021-08-24 10:45 | Observation (INO) | payer MEDICARE, BC ==
[2021-08-24] MEDS ORDERED: ASPIRIN 81 MG PO STA (10:50)
[2021-08-24 11:12] LABS: Basophils # (A) 0.1 k/uL (0-0.2); Basophils % (A) 1 %; Eosinophils # (A) 0.3 k/uL (0-0.7); Eosinophils % (A) 3 %; HCT 47.6 % (39.0-53.0); HGB 15.5 gm/dL (13.0-17.5); Lymphocytes # (A) 1.8 k/uL (1.0-4.8); Lymphocytes % (A) 23 %; MCH 29.8 pg (25.0-35.0); MCHC 32.6 g/dL (31.0-37.0); MCV 91.5 fL (80.0-100.0); Mean Platelet Volume 7.8; Monocytes # (A) 0.6 k/uL (0-1.0); Monocytes % (A) 8 %; Neutrophils % (A) 63 %; Platelet Count 155 k/uL (150-450); RDW 13.9 % (11.5-15.5); WBC 7.8 k/uL (3.8-10.6)
--- NOTE | 2021-08-24 11:12 | ED ---
General Adult HPI - General Chief complaint: Chest Pain Stated complaint: SOB Chest Pain Time Seen by Provider: 08/24/21 10:50 Source: patient, EMS, RN notes reviewed, old records reviewed Mode of arrival: EMS Limitations: no limitations - History of Present Illness Initial comments: This is a 75-year-old male who presents emergency Department with a past medical history of bypass surgery diabetes hypertension high cholesterol. Patient states he was in [employer] started having some sharp chest pain became lightheaded went back of her systolic down he rested while one of his friends gave him a nitroglycerin it took the pain from a 10 to a 2 and then in the ambulance he was given another nitroglycerin and it took his pain to 0. Patient currently has no chest pain. Patient denies any shortness of breath. Patient denies any fever chills or cough. patient states the pain did not radiate anywhere. Patient denies any swelling to the legs or calf tenderness. Patient denies any abdominal pain. - Related Data Home Medications Medication Instructions Recorded Confirmed Multivitamin [Men's Multi-Vitamin] 1 tab PO DAILY 04/01/15 09/22/20 Cyanocobalamin (Vitamin B-12) 1,000 mcg PO HS 10/09/18 09/22/20 [Vitamin B-12] Tamsulosin HCl [Flomax] 0.4 mg PO DAILY 10/09/18 09/22/20 Metoprolol Succinate (ER) [Toprol 50 mg PO BID 12/20/18 09/22/20 XL] Pantoprazole [Protonix] 40 mg PO DAILY 12/20/18 09/22/20 metFORMIN HCL 500 mg PO BID 12/20/18 09/22/20 Atorvastatin [Lipitor] 40 mg PO HS 09/22/20 09/22/20 Canagliflozin [Invokana] 300 mg PO DAILY 09/22/20 09/22/20 Cholecalciferol [Vitamin D3 (25 50 mcg PO DAILY 09/22/20 09/22/20 Mcg = 1000 Iu)] Lisinopril [Zestril] 10 mg PO DAILY 09/22/20 09/22/20 Previous Rx's Medication Instructions Recorded Aspirin 81 mg PO DAILY chew 10/18/18 Allergies Allergy/AdvReac Type Severity Reaction Status Date / Time azithromycin [From Zithromax] AdvReac Nausea & Verified 09/22/20 18:49 Vomiting codeine AdvReac Nausea & Verified 09/22/20 18:49 Vomiting Review of Systems ROS Statement: Those systems with pertinent positive or pertinent negative responses have been documented in the HPI. ROS Other: All systems not noted in ROS Statement are negative. Past Medical History Past Medical History: Atrial Fibrillation, Coronary Artery Disease (CAD), Can cer, CVA/TIA, Diabetes Mellitus, GERD/Reflux, Hyperlipidemia, Hypertension, Osteoarthritis (OA), Prostate Disorder, Skin Disorder, Vascular Disorder Additional Past Medical History / Comment(s): Recent bilateral hand edema past 3 weeks, IDDM type II, post CABG A fib, TIA years ago, pernicious anemia with monthly injections, hiatal hernia, BPH, venous insufficiency, occasional lower leg/pedal edema, spinal stenosis, herniated disc L1, spinal cyst, chronic low back pain, rare cervical pain, benign colon polyp, covid + 06/2019. History of Any Multi-Drug Resistant Organisms: None Reported Past Surgical History: Bowel Resection, Cholecystectomy, Coronary Bypass/CABG, Heart Catheterization, Hernia Repair, Joint Replacement Additional Past Surgical History / Comment(s): 10/2018 CABG 2 vessels, Bilateral knees replaced with R side done twice, bowel resection when pt was 12 yrs old d/t obstruction, umbilical hernia repair, skin cancer removed from mid back, colonoscopy, back injections in past, bilateral cataract removals with lens implants. Past Anesthesia/Blood Transfusion Reactions: No Reported Reaction Past Psychological History: No Psychological Hx Reported Smoking Status: Never smoker Past Alcohol Use History: None Reported Past Drug Use History: None Reported - Past Family History Father Family Medical History: Congestive Heart Failure (CHF), CVA/TIA Additional Family Medical History / Comment(s): at age 68 Brother(s) Family Medical History: Cancer, COPD, Diabetes Mellitus Additional Family Medical History / Comment(s): heart problems Mother Family Medical History: Myocardial Infarction ([place]) Additional Family Medical History / Comment(s): at 79 w/ [place] General Exam - General Exam Comments Initial Comments: GENERAL: Patient is well-developed and well-nourished. Patient is nontoxic and well- hydrated and is in mild distress. ENT: Neck is soft and supple. No significant lymphadenopathy is noted. Oropharynx is clear. Moist mucous membranes. Neck has full range of motion without eliciting any pain. EYES: The sclera were anicteric and conjunctiva were pink and moist. Extraocular movements were intact and pupils were equal round and reactive to light. Eyel ids were unremarkable. PULMONARY: Unlabored respirations. Good breath sounds bilaterally. No audible rales rhonchi or wheezing was noted. CARDIOVASCULAR: There is a regular rate and rhythm without any murmurs gallops or rubs. ABDOMEN: Soft and nontender with normal bowel sounds. SKIN: Skin is clear with no lesions or rashes and otherwise unremarkable. NEUROLOGIC: Patient is alert and oriented x3. Cranial nerves II through XII are grossly intact. Motor and sensory are also intact. Normal speech, volume and content. Symmetrical smile. MUSCULOSKELETAL: Normal extremities with adequate strength and full range of motion. LYMPHATICS: No significant lymphadenopathy is noted PSYCHIATRIC: Normal psychiatric evaluation. Limitations: no limitations Course Vital Signs 08/24/21 12:19 Pulse Rate 57 L Respiratory 18 Rate Blood Pressure 113/73 O2 Sat by Pulse 92 L Oximetry Medical Decision Making - Medical Decision Making EKG shows sinus rhythm at 61 bpm ND interval 193 QRSs 105 QT interval 425 QTC is 428. Patient's EKG shows no ST segment elevation or depression. Chest x-ray shows no acute abnormality. I spoke with some physicians sound physician's admitted the patient I wrote admitting orders I consult to cardiology - Lab Data Result diagrams: 08/24/21 11:05 08/24/21 11:05 Lab Results 08/24/21 08/24/21 08/24/21 Range/Units 11:05 11:05 11:05 WBC 7.8 (3.8-10.6) k/uL RBC 5.20 (4.30-5.90) m/uL Hgb 15.5 (13.0-17.5) gm/dL Hct 47.6 (39.0-53.0) % MCV 91.5 (80.0-100.0) fL MCH 29.8 (25.0-35.0) pg MCHC 32.6 (31.0-37.0) g/dL RDW 13.9 (11.5-15.5) % Plt Count 155 (150-450) k/uL MPV 7.8 Neutrophils % 63 % Lymphocytes % 23 % Monocytes % 8 % Eosinophils % 3 % Basophils % 1 % Neutrophils # 5.0 (1.3-7.7) k/uL Lymphocytes # 1.8 (1.0-4.8) k/uL Monocytes # 0.6 (0-1.0) k/uL Eosinophils # 0.3 (0-0.7) k/uL Basophils # 0.1 (0-0.2) k/uL PT 11.1 (9.0-12.0) sec INR 1.0 (<1.2) APTT 25.7 (22.0-30.0) sec Sodium 141 (137-145) mmol/L Potassium 4.7 (3.5-5.1) mmol/L Chloride 109 H (98-107) mmol/L Carbon Dioxide 23 (22-30) mmol/L Anion Gap 9 mmol/L BUN 29 H (9-20) mg/dL Creatinine 1.15 (0.66-1.25) mg/dL Est GFR (CKD-EPI)AfAm 72 (>60 ml/min/1.73 sqM) Est GFR (CKD-EPI)NonAf 62 (>60 ml/min/1.73 sqM) Glucose 87 (74-99) mg/dL Calcium 8.9 (8.4-10.2) mg/dL Magnesium 1.7 (1.6-2.3) mg/dL Total Bilirubin 1.2 (0.2-1.3) mg/dL AST 41 (17-59) U/L ALT 18 (4-49) U/L Alkaline Phosphatase 69 (38-126) U/L Troponin I (0.000-0.034) ng/mL Total Protein 6.8 (6.3-8.2) g/dL Albumin 4.1 (3.5-5.0) g/dL 08/24/21 Range/Units 11:05 WBC (3.8-10.6) k/uL RBC (4.30-5.90) m/uL Hgb (13.0-17.5) gm/dL Hct (39.0-53.0) % MCV (80.0-100.0) fL MCH (25.0-35.0) pg MCHC (31.0-37.0) g/dL RDW (11.5-15.5) % Plt Count (150-450) k/uL MPV Neutrophils % % Lymphocytes % % Monocytes % % Eosinophils % % Basophils % % Neutrophils # (1.3-7.7) k/uL Lymphocytes # (1.0-4.8) k/uL Monocytes # (0-1.0) k/uL Eosinophils # (0-0.7) k/uL Basophils # (0-0.2) k/uL PT (9.0-12.0) sec INR (<1.2) APTT (22.0-30.0) sec Sodium (137-145) mmol/L Potassium (3.5-5.1) mmol/L Chloride (98-107) mmol/L Carbon Dioxide (22-30) mmol/L Anion Gap mmol/L BUN (9-20) mg/dL Creatinine (0.66-1.25) mg/dL Est GFR (CKD-EPI)AfAm (>60 ml/min/1.73 sqM) Est GFR (CKD-EPI)NonAf (>60 ml/min/1.73 sqM) Glucose (74-99) mg/dL Calcium (8.4-10.2) mg/dL Magnesium (1.6-2.3) mg/dL Total Bilirubin (0.2-1.3) mg/dL AST (17-59) U/L ALT (4-49) U/L Alkaline Phosphatase (38-126) U/L Troponin I <0.012 (0.000-0.034) ng/mL Total Protein (6.3-8.2) g/dL Albumin (3.5-5.0) g/dL Disposition Clinical Impression: Chest pain Disposition: ADMITTED IP TO THIS HOSP Referrals: Triny Weathers DO [Primary Care Provider] - 1-2 days Time of Disposition: 12:59
[2021-08-24] MEDS: NITROGLYCERIN OINT 1 INCH/GM PACKET TOPICAL STA ×2 (11:13→11:40)
[2021-08-24 11:21] LABS: Albumin 4.1 g/dL (3.5-5.0); Calcium 8.9 mg/dL (8.4-10.2); Magnesium 1.7 mg/dL (1.6-2.3); Total Bilirubin 1.2 mg/dL (0.2-1.3); Total Protein 6.8 g/dL (6.3-8.2)
[2021-08-24 11:29] LABS: Potassium 4.7 mmol/L (3.5-5.1)
--- NOTE | 2021-08-24 11:46 | XR ---
EXAMINATION TYPE: XR chest 2V DATE OF EXAM: 08/24/2021 COMPARISON: 09/22/2020 HISTORY: 75-year-old male with chest pain, shortness of breath TECHNIQUE: PA and lateral views FINDINGS: Median sternotomy wires are present with post-CABG clips. Heart borderline enlarged. Interstitial pro minence is unchanged from 09/22/2020. [facility] throughout the thoracic spine. No new consolidation or pleu ral effusion seen. IMPRESSION: Borderline cardiomegaly. Post-CABG changes. There are chronic changes without definite acute process.
[2021-08-24 12:03] LABS: Partial Thromboplastin Time 25.7 sec (22.0-30.0); Prothrombin Time 11.1 sec (9.0-12.0)
[2021-08-24] MEDS ORDERED: NITROGLYCERIN SL TABS 0.4 MG TAB SUBLINGUAL PRN (13:00)
[2021-08-24] MEDS ORDERED: NALOXONE 0.4 MG/ML 1 ML VIAL IVP PRN (15:16)
[2021-08-24] MEDS ORDERED: ACETAMINOPHEN TAB 325 MG TAB PO PRN (15:16)
--- NOTE | 2021-08-24 15:18 | P.HPIM ---
History of Present Illness H&P Date: 08/24/21 Chief Complaint: Chest pain 75-year-old man with medical history of CAD, diabetes, hypertension, hyperlipidemia, paroxysmal atrial fibrillation, BPH presented with chest pain. Patient states that his pain started today while he was at [employer], sharp in nature, improved with nitroglycerin. Patient does not think it's related to exertion, position/by mouth intake. Patient reports associated diaphoresis. But denies fevers, chills, nausea, vomiting, palpitations, syncope, presyncope, cough, dyspnea, abdominal pain, constipation, diarrhea, dysuria, dyschezia, numbness/weakness of extremities. In the emergency room, patient is afebrile, 113/73, heart rate is 57, 92% on room air. CBC is unreliable. Chemistries are unremarkable. LFTs were unremarkable. Initial troponin is less than 0.012. Coags were unremarkable. Chest x-ray demonstrates cardiomegaly, post CABG changes, no acute process. EKG shows sinus rhythm, low-voltage QRS, incomplete right bundle branch block. All Systems reviewed and pertinent positives and negatives noted in HPI, all other symptoms are negative Gen: awake, alert HEENT: normocephalic, atraumatic, good hearing acuity, moist mucous membranes Resp: good air exchange, breathing comfortably with no accessory muscle use CVS: good distal perfusion x 4, GI: soft, NTTP, ND : no SPT, no CVAT, fitch catheter not present MSK: no pitting edema, no clubbing Neuro: non-focal, moving all extremities Psych: cooperative, euthymic mood Labs and imaging as above Assessment/plan: Chest pain History of CAD -Admit to observation, telemetry -Cardiology consult -Aspirin, statin -Resume metoprolol -Echo -A1c, TSH, lipid panel -EKG/nitro when necessary Hypertension Hyperlipidemia Paroxysmal atrial fibrillation BPH Diabetes -Home medications reviewed and reconciled -Sliding scale insulin Patient is full code DVT prophylaxis with heparin 3 times a day Past Medical History Past Medical History: Atrial Fibrillation, Coronary Artery Disease (CAD), Cancer, CVA/TIA, Diabetes Mellitus, GERD/Reflux, Hyperlipidemia, Hypertension, Osteoarthritis (OA), Prostate Disorder, Skin Disorder, Vascular Disorder Additional Past Medical History / Comment(s): Recent bilateral hand edema past 3 weeks, IDDM type II, post CABG A fib, TIA years ago, pernicious anemia with monthly injections, hiatal hernia, BPH, venous insufficiency, occasional lower leg/pedal edema, spinal stenosis, herniated disc L1, spinal cyst, chronic low back pain, rare cervical pain, benign colon polyp, covid + 06/2019. History of Any Multi-Drug Resistant Organisms: None Reported Past Surgical History: Bowel Resection, Cholecystectomy, Coronary Bypass/CABG, H eart Catheterization, Hernia Repair, Joint Replacement Additional Past Surgical History / Comment(s): 10/2018 CABG 2 vessels, Bilateral knees replaced with R side done twice, bowel resection when pt was 12 yrs old d/t obstruction, umbilical hernia repair, skin cancer removed from mid back, colonoscopy, back injections in past, bilateral cataract removals with lens implants. Past Anesthesia/Blood Transfusion Reactions: No Reported Reaction Past Psychological History: No Psychological Hx Reported Smoking Status: Never smoker Past Alcohol Use History: None Reported Past Drug Use History: None Reported - Past Family History Father Family Medical History: Congestive Heart Failure (CHF), CVA/TIA Additional Family Medical History / Comment(s): at age 68 Brother(s) Family Medical History: Cancer, COPD, Diabetes Mellitus Additional Family Medical History / Comment(s): heart problems Mother Family Medical History: Myocardial Infarction ([place]) Additional Family Medical History / Comment(s): at 79 w/ [place] Medications and Allergies Home Medications Medication Instructions Recorded Confirmed Type Multivitamin [Men's Multi-Vitamin] 1 tab PO DAILY 04/01/15 08/24/21 History Tamsulosin HCl [Flomax] 0.4 mg PO DAILY 10/09/18 08/24/21 History Aspirin 81 mg PO DAILY chew 10/18/18 08/24/21 Rx Metoprolol Succinate (ER) [Toprol 50 mg PO BID 12/20/18 08/24/21 History XL] Pantoprazole [Protonix] 40 mg PO DAILY 12/20/18 08/24/21 History metFORMIN HCL 500 mg PO BID 12/20/18 08/24/21 History Atorvastatin [Lipitor] 40 mg PO HS 09/22/20 08/24/21 History Canagliflozin [Invokana] 300 mg PO DAILY 09/22/20 08/24/21 History Cholecalciferol [Vitamin D3 (25 50 mcg PO DAILY 09/22/20 08/24/21 History Mcg = 1000 Iu)] Lisinopril [Zestril] 10 mg PO DAILY 09/22/20 08/24/21 History Apixaban [Eliquis] 5 mg PO BID 08/24/21 08/24/21 History Cyanocobalamin/Cobamamide [Vitamin 1 tab SL DAILY 08/24/21 08/24/21 History B-12 5,000 Mcg Tab Sl] Gabapentin 600 mg PO HS 08/24/21 08/24/21 History Magnesium Oxide 400 mg PO DAILY 08/24/21 08/24/21 History Semaglutide [Rybelsus] 7 mg PO DAILY 08/24/21 08/24/21 History predniSONE 5 mg PO DAILY 08/24/21 08/24/21 History Allergies Allergy/AdvReac Type Severity Reaction Status Date / Time azithromycin [From Zithromax] AdvReac Nausea & Verified 08/24/21 14:22 Vomiting codeine AdvReac Nausea & Verified 08/24/21 14:22 Vomiting Physical Exam Osteopathic Statement: *. No significant issues noted on an osteopathic structural exam other than those noted in the History and Physical/Consult. Vitals: Vital Signs Pulse Resp BP Pulse Ox 08/24/21 12:19 57 L 18 113/73 92 L Intake and Output 08/24/21 08/24/21 08/24/21 06:59 14:59 22:59 Other: Weight 140.614 kg Results CBC & Chem 7: 08/24/21 11:05 08/24/21 11:05 Labs: Abnormal Lab Results - Last 24 Hours (Table) 08/24/21 Range/Units 11:05 Chloride 109 H (98-107) mmol/L BUN 29 H (9-20) mg/dL
[2021-08-24] MEDS ORDERED: HEPARIN SODIUM,PORCINE/PF 5,000 UNIT/0.5 ML SYRINGE SQ SCH (16:00)
[2021-08-24] MEDS: NITROGLYCERIN OINT 1 INCH/GM PACKET TOPICAL SCH ×2 (17:04→23:13)
[2021-08-24 17:41] LABS: Glucose,Whole Blood 108 mg/dL (75-99)
[2021-08-24] MEDS: INSULIN ASPART (NovoLOG) 100 UNIT/ML VIAL SQ SCH (17:42)
[2021-08-24] MEDS ORDERED: GABAPENTIN 300 MG CAP PO SCH (21:00)
[2021-08-24] MEDS ORDERED: ATORVASTATIN 40 MG TAB PO SCH (21:00)
[2021-08-24] MEDS: METOPROLOL SUCCINATE (ER) 50 MG TAB.ER.24H PO SCH (21:41)
[2021-08-24] MEDS: APIXABAN 5 MG TAB PO SCH (21:41)
[2021-08-25] MEDS: NITROGLYCERIN OINT 1 INCH/GM PACKET TOPICAL SCH ×2 (05:03→12:07)
[2021-08-25 06:50] LABS: Basophils # (A) 0.1 k/uL (0-0.2); Basophils % (A) 1 %; Eosinophils # (A) 0.1 k/uL (0-0.7); Eosinophils % (A) 2 %; HCT 44.9 % (39.0-53.0); HGB 14.6 gm/dL (13.0-17.5); Lymphocytes # (A) 1.5 k/uL (1.0-4.8); Lymphocytes % (A) 22 %; MCH 29.7 pg (25.0-35.0); MCHC 32.5 g/dL (31.0-37.0); MCV 91.3 fL (80.0-100.0); Mean Platelet Volume 7.7; Monocytes # (A) 0.6 k/uL (0-1.0); Monocytes % (A) 8 %; Neutrophils # (A) 4.5 k/uL (1.3-7.7); Neutrophils % (A) 65 %; Platelet Count 135 k/uL (150-450); RBC 4.92 m/uL (4.30-5.90); RDW 13.9 % (11.5-15.5); WBC 6.9 k/uL (3.8-10.6)
[2021-08-25 07:03] LABS: African American GFR (CKD) 81 (>60 ml/min/1.73 sqM); Anion Gap 8 mmol/L; Blood Urea Nitrogen 24 mg/dL (9-20); Calcium 8.5 mg/dL (8.4-10.2); Carbon Dioxide 26 mmol/L (22-30); Chloride 107 mmol/L (98-107); Glucose 89 mg/dL (74-99); Magnesium 1.5 mg/dL (1.6-2.3); Non-African American GFR(CKD) 70 (>60 ml/min/1.73 sqM); Potassium 3.7 mmol/L (3.5-5.1); Sodium 141 mmol/L (137-145)
[2021-08-25 07:34] LABS: Glucose,Whole Blood 80 mg/dL (75-99)
[2021-08-25 07:39] VITALS: BP 121/73; PULSE 65; RESP 16; TEMP 98.1
[2021-08-25] MEDS: INSULIN ASPART (NovoLOG) 100 UNIT/ML VIAL SQ SCH ×2 (08:38→12:08)
[2021-08-25] MEDS ORDERED: CHOLECALCIFEROL 25 MCG (1000 IU) TABLET PO SCH (09:00)
[2021-08-25] MEDS ORDERED: CYANOCOBALAMIN 500 MCG TAB PO SCH (09:00)
[2021-08-25] MEDS ORDERED: ASPIRIN 81 MG PO SCH (09:00)
[2021-08-25] MEDS ORDERED: predniSONE 5 MG TAB PO SCH (09:00)
[2021-08-25] MEDS ORDERED: ASPIRIN 325 MG TAB PO SCH (09:00)
[2021-08-25] MEDS ORDERED: MULTIVITAMINS, THERA 1 EACH TAB PO SCH (09:00)
[2021-08-25] MEDS ORDERED: MAGNESIUM OXIDE 400 MG TAB PO SCH (09:00)
[2021-08-25] MEDS ORDERED: PANTOPRAZOLE 40 MG TABLET PO SCH (09:00)
[2021-08-25] MEDS ORDERED: lisinopriL 10 MG TAB PO SCH (09:00)
[2021-08-25] MEDS ORDERED: TAMSULOSIN 0.4 MG CAP.ER.24H PO SCH (09:00)
[2021-08-25] MEDS: APIXABAN 5 MG TAB PO SCH (09:07)
--- NOTE | 2021-08-25 09:51 | P.CRDCN ---
History of Present Illness History of present illness: HISTORY OF PRESENTING ILLNESS This is a pleasant 75-year-old male past medical history significant for coronary artery disease s/p CABG 10/2018 (single CHE to LAD and diagonal), type 2 diabetes, hypertension, hyperlipidemia, TIA, paroxysmal atrial fibrillation on Eliquis, moderate to severe aortic stenosis . He follows in the office with Dr. Sprague. We have been asked to see in consultation for chest pain. Patient seen and examined at bedside. Yesterday morning around 10am he was at [employer], he was standing singing and had a episode of lightheadedness, felt "not himself". He states a friend of his helped him he sat down, drank some water, started to feel somewhat better. He was then walking up for communion and had episode of left sided 10/10 chest pain, radiating to his back. Describes it as sharp. He had associated shortness of breath and diaphoresis. He felt as if his legs might give out. EMS was called. Patient was given Nitro, with improvement in chest pain to 2/10. His blood sugar was 101 per EMS. Vitals signs were stable as well. He was transported to the emergency department. His pain is somewhat aggravated by deep breathing and palpation to the chest. His symptoms have resolved. He is compliant with his medications. He states that only medication changes was his Semaglutide dose was changed. DIAGNOSTICS EKG reveals sinus rhythm, heart rate 61, incomplete right bundle branch block, T wave inversion in lead III, no acute ischemia noted. Prior EKG with similar findings. Telemetry tracings indicate sinus mechanism with heart rate in the 60s Chest xray no acute cardiopulmonary process Laboratory reviewed, troponin negative 3, TSH within normal limits, sodium 141, potassium 3.7, BUN 24, serum creatinine 1.04, magnesium 1.5, CBC unremarkable Current home medications include prednisone, metformin, segmented leukocytes, Protonix, metoprolol succinate 50 mg twice a day, lisinopril 10 mg daily, atorvastatin 40 mg daily, aspirin 80 mg daily, Eliquis 5 mg twice a day REVIEW OF SYSTEMS At the time of my exam: CONSTITUTIONAL: Denies fever or chills. CARDIOVASCULAR: Denies chest pain, shortness of breath, orthopnea, PND or palpitations. RESPIRATORY: Denies cough. GASTROINTESTINAL: Denies abdominal pain, diarrhea, constipation, nausea or vomiting. MUSCULOSKELETAL: Denies myalgias. NEUROLOGIC: Denies numbness, tingling, headache or weakness. ENDOCRINE: Denies fatigue, weight change, polydipsia or polyurina. GENITOURINARY: Denies burning, hematuria or urgency with micturation. HEMATOLOGIC: Denies history of anemia or bleeding. PHYSICAL EXAMINATION Blood pressure 121/73, heart rate 65, afebrile, saturations 93% on room air CONSTITUTIONAL: No apparent distress. HEENT: Head is normocephalic. Pupils are equal, round. Sclerae anicteric. Mucous membranes of the mouth are moist. No JVD. No carotid bruit. CHEST EXAMINATION: Lungs are clear to auscultation. There is some wall tenderness is noted on palpation and with deep breathing. HEART EXAMINATION: Regular rate and rhythm. S1, S2 heard. Systolic ejection murmur at right sternal border, no gallops or rub. ABDOMEN: Soft, nontender. Positive bowel sounds. EXTREMITIES: 2+ peripheral pulses, no lower extremity edema and no calf tenderness. SKIN: Warm, dry NEUROLOGIC EXAMINATION: Patient is awake, alert and oriented x3. ASSESSMENT Chest pain and shortness of breath atypical, acute coronary syndrome has ruled out. There is some reproducibility on exam and when taking a deep breath. Coronary artery disease s/p CABG 10/2018 (single CHE to LAD and diagonal) Type 2 diabetes Hypertension Hyperlipidemia History of TIA Paroxysmal atrial fibrillation on Eliquis Moderate to severe aortic stenosis PLAN An acute coronary event has been ruled out with no EKG evidence of ischemia and negative cardiac enzymes. Obtain 2D echocardiogram and doppler study to assess cardiac structure and fu nction. Check D-dimer Continue home cardiac medications If echocardiogram is stable, d-dimer negative, increase patient's activity and patient doing well/no further chest pain no further inpatient workup from a cardiology perspective Recommend follow up with Dr. Sprague within 2 weeks. Thank you kindly for this consultation. Nurse practitioner note has been reviewed by physician. Signing provider agrees with the documented findings, assessment, and plan of care. Past Medical History Past Medical History: Atrial Fibrillation, Coronary Artery Disease (CAD), Cancer, CVA/TIA, Diabetes Mellitus, GERD/Reflux, Hyperlipidemia, Hypertension, Osteoarthritis (OA), Prostate Disorder, Skin Disorder, Vascular Disorder Additional Past Medical History / Comment(s): Recent bilateral hand edema past 3 weeks, IDDM type II, post CABG A fib, TIA years ago, pernicious anemia with monthly injections, hiatal hernia, BPH, venous insufficiency, occasional lower leg/pedal edema, spinal stenosis, herniated disc L1, spinal cyst, chronic low b ack pain, rare cervical pain, benign colon polyp, covid + 06/2019. History of Any Multi-Drug Resistant Organisms: None Reported Past Surgical History: Bowel Resection, Cholecystectomy, Coronary Bypass/CABG, Heart Catheterization, Hernia Repair, Joint Replacement Additional Past Surgical History / Comment(s): 10/2018 CABG 2 vessels, Bilateral knees replaced with R side done twice, bowel resection when pt was 12 yrs old d/t obstruction, umbilical hernia repair, skin cancer removed from mid back, colonoscopy, back injections in past, bilateral cataract removals with lens implants. Past Anesthesia/Blood Transfusion Reactions: No Reported Reaction Past Psychological History: No Psychological Hx Reported Smoking Status: Never smoker Past Alcohol Use History: None Reported Past Drug Use History: None Reported - Past Family History Father Family Medical History: Congestive Heart Failure (CHF), CVA/TIA Additional Family Medical History / Comment(s): at age 68 Brother(s) Family Medical History: Cancer, COPD, Diabetes Mellitus Additional Family Medical History / Comment(s): heart problems Mother Family Medical History: Myocardial Infarction ([place]) Additional Family Medical History / Comment(s): at 79 w/ [place] Medications and Allergies Home Medications Medication Instructions Recorded Confirmed Type Multivitamin [Men's Multi-Vitamin] 1 tab PO DAILY 04/01/15 08/24/21 History Tamsulosin HCl [Flomax] 0.4 mg PO DAILY 10/09/18 08/24/21 History Aspirin 81 mg PO DAILY chew 10/18/18 08/24/21 Rx Metoprolol Succinate (ER) [Toprol 50 mg PO BID 12/20/18 08/24/21 History XL] Pantoprazole [Protonix] 40 mg PO DAILY 12/20/18 08/24/21 History metFORMIN HCL 500 mg PO BID 12/20/18 08/24/21 History Atorvastatin [Lipitor] 40 mg PO HS 09/22/20 08/24/21 History Canagliflozin [Invokana] 300 mg PO DAILY 09/22/20 08/24/21 History Cholecalciferol [Vitamin D3 (25 50 mcg PO DAILY 09/22/20 08/24/21 History Mcg = 1000 Iu)] Lisinopril [Zestril] 10 mg PO DAILY 09/22/20 08/24/21 History Apixaban [Eliquis] 5 mg PO BID 08/24/21 08/24/21 History Cyanocobalamin/Cobamamide [Vitamin 1 tab SL DAILY 08/24/21 08/24/21 History B-12 5,000 Mcg Tab Sl] Gabapentin 600 mg PO HS 08/24/21 08/24/21 History Magnesium Oxide 400 mg PO DAILY 08/24/21 08/24/21 History Semaglutide [Rybelsus] 7 mg PO DAILY 08/24/21 08/24/21 History predniSONE 5 mg PO DAILY 08/24/21 08/24/21 History Allergies Allergy/AdvReac Type Severity Reaction Status Date / Time azithromycin [From Zithromax] AdvReac Nausea & Verified 08/24/21 14:22 Vomiting Physical Exam Vitals: Vital Signs Temp Pulse Pulse Pulse Resp BP BP 08/25/21 02:50 97.7 F 69 18 124/80 08/24/21 19:30 97.4 F L 67 18 132/80 08/24/21 17:20 97.2 F L 64 18 08/24/21 16:17 84 18 116/74 08/24/21 12:19 57 L 18 113/73 BP Pulse Ox 08/25/21 02:50 93 L 08/24/21 19:30 97 08/24/21 17:20 170/82 93 L 08/24/21 16:17 95 08/24/21 12:19 92 L Intake and Output 08/24/21 08/25/21 08/25/21 22:59 06:59 14:59 Intake Total 240 Balance 240 Intake: Oral 240 Other: # Voids 1 1 Results 08/25/21 06:32 08/25/21 06:32 Cardiac Enzymes 08/24/21 08/24/21 08/24/21 Range/Units 11:05 11:05 15:36 AST 41 (17-59) U/L Troponin I <0.012 <0.012 (0.000-0.034) ng/mL 08/24/21 Range/Units 18:15 AST (17-59) U/L Troponin I 0.012 (0.000-0.034) ng/mL Coagulation 08/24/21 Range/Units 11:05 PT 11.1 (9.0-12.0) sec APTT 25.7 (22.0-30.0) sec CBC 08/24/21 08/25/21 Range/Units 11:05 06:32 WBC 7.8 6.9 (3.8-10.6) k/uL RBC 5.20 4.92 (4.30-5.90) m/uL Hgb 15.5 14.6 (13.0-17.5) gm/dL Hct 47.6 44.9 (39.0-53.0) % Plt Count 155 135 L (150-450) k/uL Comprehensive Metabolic Panel 08/24/21 08/25/21 Range/Units 11: 06:32 Sodium 141 141 (137-145) mmol/L Potassium 4.7 3.7 (3.5-5.1) mmol/L Chloride 109 H 107 (98-107) mmol/L Carbon Dioxide 23 26 (22-30) mmol/L BUN 29 H 24 H (9-20) mg/dL Creatinine 1.15 1.04 (0.66-1.25) mg/dL Glucose 87 89 (74-99) mg/dL Calcium 8.9 8.5 (8.4-10.2) mg/dL AST 41 (17-59) U/L ALT 18 (4-49) U/L Alkaline Phosphatase 69 (38-126) U/L Total Protein 6.8 (6.3-8.2) g/dL Albumin 4.1 (3.5-5.0) g/dL Current Medications Generic Name Dose Route Start Last Admin Trade Name Freq PRN Reason Stop Dose Admin Acetaminophen 650 mg 08/24/21 15:16 Acetaminophen Tab 325 Mg Tab PO Q6HR PRN Mild Pain or Fever > 100.5 Apixaban 5 mg 08/24/21 21:00 08/24/21 21:41 Apixaban 5 Mg Tab PO 5 mg BID COUNT INCLUDES THE [facility] Administration Protocol Aspirin 81 mg 08/25/21 09:00 Aspirin 81 Mg PO DAILY COUNT INCLUDES THE [facility] Atorvastatin Calcium 40 mg 08/24/21 21:00 08/24/21 21:41 Atorvastatin 40 Mg Tab PO 40 mg HS COUNT INCLUDES THE [facility] Administration Cholecalciferol 50 mcg 08/25/21 09:00 Cholecalciferol 25 Mcg (1000 Iu) Tablet PO DAILY COUNT INCLUDES THE [facility] Cyanocobalamin 1,000 mcg 08/25/21 09:00 Cyanocobalamin 500 Mcg Tab PO DAILY COUNT INCLUDES THE [facility] Gabapentin 600 mg 08/24/21 21:00 08/24/21 21:41 Gabapentin 300 Mg Cap PO 600 mg HS MARCEL Administration Insulin Aspart 0 unit 08/24/21 17:30 08/24/21 17:42 Insulin Aspart (Novolog) 100 Unit/Ml Vial SQ Not Given AC-TID COUNT INCLUDES THE [facility] Protocol Lisinopril 10 mg 08/25/21 09:00 Lisinopril 10 Mg Tab PO DAILY COUNT INCLUDES THE [facility] Magnesium Oxide 400 mg 08/25/21 09:00 Magnesium Oxide 400 Mg Tab PO DAILY COUNT INCLUDES THE [facility] Metoprolol Succinate 50 mg 08/24/21 21:00 08/24/21 21:41 Metoprolol Succinate (Er) 50 Mg Tab.Er.24h PO 50 mg BID COUNT INCLUDES THE [facility] Administration Multivitamins 1 each 08/25/21 09:00 Multivitamins, Thera 1 Each Tab PO DAILY COUNT INCLUDES THE [facility] Naloxone HCl 0.2 mg 08/24/21 15:16 Naloxone 0.4 Mg/Ml 1 Ml Vial IVP Q2M PRN Opioid Reversal Nitroglycerin 0.4 mg 08/24/21 13:00 Nitroglycerin Sl Tabs 0.4 Mg Tab SUBLINGUAL Q5M PRN Chest Pain Nitroglycerin 1 inch 08/24/21 18:00 08/25/21 05:03 Nitroglycerin Oint 1 Inch/Gm Packet TOPICAL Not Given Q6HR COUNT INCLUDES THE [facility] Pantoprazole Sodium 40 mg 08/25/21 09:00 Pantoprazole 40 Mg Tablet PO DAILY COUNT INCLUDES THE [facility] Prednisone 5 mg 08/25/21 09:00 Prednisone 5 Mg Tab PO DAILY COUNT INCLUDES THE [facility] Tamsulosin HCl 0.4 mg 08/25/21 09:00 Tamsulosin 0.4 Mg Cap.Er.24h PO DAILY COUNT INCLUDES THE [facility] Intake and Output 08/24/21 08/25/21 08/25/21 22:59 06:59 14:59 Intake Total 240 Balance 240 Intake: Oral 240 Other: # Voids 1 1 08/25/21 06:32 08/25/21 06:32
--- NOTE | 2021-08-25 10:35 | CA ---
Transthoracic Echo Report Name: Alirio Pimentel Age: 75 Gender: M : 1945 Exam Date: 08/25/2021 07:21 Exam Location: [facility] Ht (in): 71 Wt (lb): 310 Ordering Physician: Evangelista Murguia MD Attending/Referring Phys: Para Machine Operator Marybeth Post RDCS Procedure CPT: Indications: Chest Pain Cardiac Hx: Hx of bypass Technical Quality: Poor Contrast 1: Lumason Total Dose (mL): 1 Contrast 2: Total Dose (mL): MEASUREMENTS (Male / Female) Normal Values 2D ECHO LV Diastolic Diameter PLAX 4.6 cm 4.2 - 5.9 / 3.9 - 5.3 cm LV Systolic Diameter PLAX 2.9 cm IVS Diastolic Thickness 1.5 cm 0.6 - 1.0 / 0.6 - 0.9 cm LVPW Diastolic Thickness 1.7 cm 0.6 - 1.0 / 0.6 - 0.9 cm LV Relative Wall Thickness 0.7 RV Internal Dim ED PLAX 3.4 cm LVOT Diameter 1.6 cm M-MODE Aortic Root Diameter MM 4.2 cm LA Systolic Diameter MM 3.5 cm LA Ao Ratio MM 0.8 MV E Point Septal Separation 1.2 cm AV Cusp Separation MM 1.1 cm DOPPLER AV Peak Velocity 193.7 cm/s AV Peak Gradient 15.0 mmHg AV Mean Velocity 136.1 cm/s AV Mean Gradient 9.4 mmHg AV Velocity Time Integral 39.6 cm LVOT Peak Velocity 73.5 cm/s LVOT Peak Gradient 2.2 mmHg AV Area Cont Eq pk 0.7 cm??? MV Area PHT 4.6 cm??? MR Peak Velocity 112.0 cm/s MR Peak Gradient 5.0 mmHg Mitral E Point Velocity 43.6 cm/s Mitral A Point Velocity 61.1 cm/s Mitral E to A Ratio 0.7 MV Deceleration Time 165.3 ms MV E' Velocity 4.4 cm/s Mitral E to MV E' Ratio 9.9 TR Peak Velocity 160.3 cm/s TR Peak Gradient 10.3 mmHg Right Ventricular Systolic Press 15.0 mmHg FINDINGS Left Ventricle Moderately increased septal wall thickness. Left ventricular ejection fraction is estimated at 55-60 %. Left ventricular cavity size normal. Right Ventricle The right ventricle is normal in size and function. Right Atrium The right atrium is normal in size. Left Atrium The left atrium is normal in size. Mitral Valve Structurally normal mitral valve without significant stenosis or prolapse. There is trace mitral regurgitation. Aortic Valve Diffuse thickening of the aortic valve cusps with reduced excursion. Mild aortic stenosis with a peak gradient of 15mmHg and a mean gradient of 9mmHg. . There is no aortic regurgitation. Tricuspid Valve Structurally normal tricuspid valve without significant stenosis. Pulmonary artery systolic pressure is normal. Trace tricuspid regurgitation. Pulmonic Valve Structurally normal pulmonic valve without significant stenosis. There is no pulmonic regurgitation. Pericardium Normal pericardium without effusion. Aorta Normal aortic root dimension. CONCLUSIONS Technically difficult study Normal left ventricular dimension and systolic function Mild aortic stenosis More details about the echo in the above finding Previewed by: Dr. Merritt Macdonald MD (Electronically Signed) Final Date: 25 Aug 2021 09:49
[2021-08-25 10:59] LABS: Chol/HDL Ratio 2.82 Ratio; LDL Cholesterol,Calculated 27.8 mg/dL (0.0-131.0)
[2021-08-25] MEDS: METOPROLOL SUCCINATE (ER) 50 MG TAB.ER.24H PO SCH (11:33)
--- NOTE | 2021-08-25 14:24 | P.DS ---
Providers Date of admission: 08/24/21 13:06 Expected date of discharge: 08/25/21 Attending physician: Evangelista Murguia MD Consults: 08/24/21 13:00 Consult Physician Urgent Consulting Provider: [facility] Consult Reason/Comments: Chest pain Do you want consulting provider notified?: Yes Primary care physician: Triny [facility] Course: 75-year-old man with medical history of CAD, diabetes, hypertension, hyperlipidemia, paroxysmal atrial fibrillation, BPH presented with chest pain. In the emergency room, patient is afebrile, 113/73, heart rate is 57, 92% on room air. CBC is unreliable. Chemistries are unremarkable. LFTs were unremarkable. Initial troponin is less than 0.012. Coags were unremarkable. Chest x-ray demonstrates cardiomegaly, post CABG changes, no acute process. EKG shows sinus rhythm, low-voltage QRS, incomplete right bundle branch block. Chest pain History of CAD -Admitted to observation, telemetry. Cardiology consulted. Aspirin, statin. Resumed metoprolol. Echo without acute changes, appropriate EF. Discharged home with cardiology follow up. Hypertension Hyperlipidemia Paroxysmal atrial fibrillation BPH Diabetes -Home medications reviewed and reconciled Gen: awake, alert HEENT: normocephalic, atraumatic, good hearing acuity, moist mucous membranes Resp: good air exchange, breathing comfortably with no accessory muscle use CVS: good distal perfusion x 4, GI: soft, NTTP, ND : no SPT, no CVAT, fitch catheter not present MSK: no pitting edema, no clubbing Neuro: non-focal, moving all extremities Psych: cooperative, euthymic mood Patient Condition at Discharge: Good Plan - Discharge Summary New Discharge Prescriptions: Continue Multivitamin [Men's Multi-Vitamin] 1 tab PO DAILY Tamsulosin HCl [Flomax] 0.4 mg PO DAILY Aspirin 81 mg PO DAILY chew metFORMIN HCL 500 mg PO BID Metoprolol Succinate (ER) [Toprol XL] 50 mg PO BID Pantoprazole [Protonix] 40 mg PO DAILY Lisinopril [Zestril] 10 mg PO DAILY Canagliflozin [Invokana] 300 mg PO DAILY Atorvastatin [Lipitor] 40 mg PO HS Semaglutide [Rybelsus] 7 mg PO DAILY Cholecalciferol [Vitamin D3 (25 Mcg = 1000 Iu)] 50 mcg PO DAILY predniSONE 5 mg PO DAILY Magnesium Oxide 400 mg PO DAILY Cyanocobalamin/Cobamamide [Vitamin B-12 5,000 Mcg Tab Sl] 1 tab SL DAILY Apixaban [Eliquis] 5 mg PO BID Gabapentin 600 mg PO HS Discharge Medication List Multivitamin [Men's Multi-Vitamin] 1 tab PO DAILY 04/01/15 [History] Tamsulosin HCl [Flomax] 0.4 mg PO DAILY 10/09/18 [History] Aspirin 81 mg PO DAILY chew 10/18/18 [Rx] Metoprolol Succinate (ER) [Toprol XL] 50 mg PO BID 12/20/18 [History] Pantoprazole [Protonix] 40 mg PO DAILY 12/20/18 [History] metFORMIN HCL 500 mg PO BID 12/20/18 [History] Atorvastatin [Lipitor] 40 mg PO HS 09/22/20 [History] Canagliflozin [Invokana] 300 mg PO DAILY 09/22/20 [History] Cholecalciferol [Vitamin D3 (25 Mcg = 1000 Iu)] 50 mcg PO DAILY 09/22/20 [History] Lisinopril [Zestril] 10 mg PO DAILY 09/22/20 [History] Apixaban [Eliquis] 5 mg PO BID 08/24/21 [History] Cyanocobalamin/Cobamamide [Vitamin B-12 5,000 Mcg Tab Sl] 1 tab SL DAILY 08/24/21 [History] Gabapentin 600 mg PO HS 08/24/21 [History] Magnesium Oxide 400 mg PO DAILY 08/24/21 [History] Semaglutide [Rybelsus] 7 mg PO DAILY 08/24/21 [History] predniSONE 5 mg PO DAILY 08/24/21 [History] Follow up Appointment(s)/Referral(s): Sean Sprague MD [STAFF PHYSICIAN] - 09/02/21 2:30 pm (Appointment made at the [facility] ) Triny Weathers DO [Primary Care Provider] - 1-2 days Patient Instructions/Handouts: Chest Pain (DC) Activity/Diet/Wound Care/Special Instructions: FOLLOW UP DIRECTED, SOONER IF WORSENING PROBLEMS OR CONCERNS. Discharge Disposition: HOME SELF-CARE
== END 2021-08-25 12:12 | disposition home or self-care (01) ==
LOC: EC 10:45 → 6NMEDSUR 13:06
PROVIDERS: ADMIT Internal Medicine; ATTEND Internal Medicine
DX: R07.89 Other chest pain (principal); I11.9 Hypertensive heart disease without heart failure; I25.10 Atherosclerotic heart disease of native coronary artery without angina pectoris; E78.00 Pure hypercholesterolemia, unspecified; E78.5 Hyperlipidemia, unspecified; E11.9 Type 2 diabetes mellitus without complications; I35.0 Nonrheumatic aortic (valve) stenosis; I45.10 Unspecified right bundle-branch block; K21.9 Gastro-esophageal reflux disease without esophagitis; I48.0 Paroxysmal atrial fibrillation; M19.90 Unspecified osteoarthritis, unspecified site; N40.0 Benign prostatic hyperplasia without lower urinary tract symptoms; I87.2 Venous insufficiency (chronic) (peripheral); D51.0 Vitamin B12 deficiency anemia due to intrinsic factor deficiency; M48.061 Spinal stenosis, lumbar region without neurogenic claudication; K44.9 Diaphragmatic hernia without obstruction or gangrene; L98.9 Disorder of the skin and subcutaneous tissue, unspecified; G89.29 Other chronic pain; M54.2 Cervicalgia; Z79.899 Other long term (current) drug therapy; Z79.01 Long term (current) use of anticoagulants; Z79.4 Long term (current) use of insulin; Z79.82 Long term (current) use of aspirin; Z79.84 Long term (current) use of oral hypoglycemic drugs; Z88.1 Allergy status to other antibiotic agents; Z88.5 Allergy status to narcotic agent; Z98.41 Cataract extraction status, right eye; Z98.42 Cataract extraction status, left eye; Z96.1 Presence of intraocular lens; Z85.828 Personal history of other malignant neoplasm of skin; Z87.19 Personal history of other diseases of the digestive system; Z86.73 Personal history of transient ischemic attack (TIA), and cerebral infarction without residual deficits; Z86.16 Personal history of COVID-19; Z90.49 Acquired absence of other specified parts of digestive tract; Z95.1 Presence of aortocoronary bypass graft; Z82.3 Family history of stroke; Z82.49 Family history of ischemic heart disease and other diseases of the circulatory system; Z82.5 Family history of asthma and other chronic lower respiratory diseases; Z83.3 Family history of diabetes mellitus
CPT/HCPCS: 99285; 36415; 93005; 85379; 80061; 80053; 80048; 84443; 83735 ×2; 84484; 85025 ×2; 85610; 85730; 83036; 71046; G0378 ×2; C8929; J7512; Q9950; 93306

== ENCOUNTER 2021-10-16 07:23 | Day surgery (SDC) | payer MEDICARE, BC ==
[2021-10-10 16:22] VITALS: BMI 40.0
[~2021-10-16 07:23] MED LIST changes: -LIDOCAINE 1% 20 ML VIAL (10MG/ML) FOR IV START INTRADERMA PRN
[2021-10-16 07:56] LABS: Glucose,Whole Blood 94 mg/dL (70-110)
[2021-10-16 07:57] VITALS: TEMP 98
[2021-10-16] MEDS ORDERED: LIDOCAINE 1% (10MG/ML) FOR IV START INTRADERMA ONE (07:59)
[2021-10-16] MEDS ORDERED: PROPOFOL 10 MG/ML 20 ML VIAL IV ONE (08:04)
[2021-10-16] MEDS ORDERED: LIDOCAINE 2% INJ 20 MG/ML (2 ML VIAL) ONE (08:04)
[2021-10-16] MEDS ORDERED: MIDAZOLAM 2 MG/2 ML VIAL ONE (08:04)
[2021-10-16] MEDS ORDERED: fentaNYL (PF) 50 MCG/ML 2 ML AMP ONE (08:04)
--- NOTE | 2021-10-16 08:07 | P.GSHP ---
History of Present Illness H&P Date: 10/16/21 Chief Complaint: Dysphagia, history of colon polyps This 76-year-old male presents today for EGD and colonoscopy. Patient has history of dysphagia. This is a previous history of colon polyps. Last colonoscopy was over 5 years ago. Past Medical History Past Medical History: Atrial Fibrillation, Blood Disorder, Coronary Artery Disease (CAD), Cancer, CVA/TIA, Diabetes Mellitus, GERD/Reflux, Hyperlipidemia, Hypertension, Osteoarthritis (OA), Prostate Disorder, Vascular Disorder Additional Past Medical History / Comment(s): Hx skin cancer, post CABG A fib, TIA years ago, pernicious anemia with monthly injections, hiatal hernia, BPH, venous insufficiency, occasional lower leg/pedal edema, spinal stenosis, herniated disc L1, spinal cyst, chronic low back pain, rare neck pain, benign colon polyp, hx Covid 06/2019. History of Any Multi-Drug Resistant Organisms: None Reported Past Surgical History: Bowel Resection, Cholecystectomy, Coronary Bypass/CABG, Heart Catheterization, Hernia Repair, Joint Replacement Additional Past Surgical History / Comment(s): 10/2018 CABG 2 vessels, bilateral knee replacements, right done twice, bowel resection at age 12 yrs d/t obstruction, umbilical hernia repair, skin cancer removed from 3 spots, colonoscopy, back injections, bilateral cataract removals with lens implants. Past Anesthesia/Blood Transfusion Reactions: No Reported Reaction Past Psychological History: No Psychological Hx Reported Additional Psychological History / Comment(s): Pt resides with his spouse. Pt has had increased stress d/t spouse going thru health problems. He is independent. He has a glucometer. 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 Past Drug Use History: None Reported - Past Family History Father Family Medical History: Congestive Heart Failure (CHF), CVA/TIA Additional Family Medical History / Comment(s): at age 68. Brother(s) Family Medical History: Cancer, COPD, Diabetes Mellitus Additional Family Medical History / Comment(s): Heart problems. Mother Family Medical History: Myocardial Infarction ([place]) Additional Family Medical History / Comment(s): at 79 w/ [place]. Medications and Allergies Home Medications Medication Instructions Recorded Confirmed Type Multivitamin [Men's Multi-Vitamin] 1 tab PO QAM 04/01/15 10/10/21 History Tamsulosin HCl [Flomax] 0.4 mg PO QAM 10/09/18 10/10/21 History Aspirin 81 mg PO DAILY chew 10/18/18 10/10/21 Rx Metoprolol Succinate (ER) [Toprol 50 mg PO BID 12/20/18 10/10/21 History XL] Pantoprazole [Protonix] 40 mg PO QAM 12/20/18 10/10/21 History metFORMIN HCL 500 mg PO BID 12/20/18 10/10/21 History Atorvastatin [Lipitor] 40 mg PO QAM 09/22/20 10/10/21 History Canagliflozin [Invokana] 300 mg PO DAILY 09/22/20 10/10/21 History Cholecalciferol [Vitamin D3 (25 25 mcg PO BID 09/22/20 10/10/21 History Mcg = 1000 Iu)] lisinopriL [Zestril] 10 mg PO QAM 09/22/20 10/10/21 History Apixaban [Eliquis] 5 mg PO BID 08/24/21 10/10/21 History Cyanocobalamin/Cobamamide [Vitamin 1 tab SL DAILY 08/24/21 10/10/21 History B-12 5,000 Mcg Tab Sl] predniSONE 5 mg PO QAM 08/24/21 10/10/21 History Gabapentin 300 mg PO QAM 10/10/21 10/10/21 History Allergies Allergy/AdvReac Type Severity Reaction Status Date / Time azithromycin [From Zithromax] AdvReac Nausea & Verified 10/10/21 16:03 Vomiting Surgical - Exam Vital Signs Temp Pulse Resp BP Pulse Ox 98 F 73 20 125/69 98 10/16/21 07:55 10/16/21 07:55 10/16/21 07:55 10/16/21 07:55 10/16/21 07:55 - General well developed, well nourished, no distress - Eyes PERRL - ENT normal pinna - Neck no masses - Respiratory normal expansion - Cardiovascular Rhythm: regular - Abdomen Abdomen: soft, non tender Assessment and Plan Assessment: History of dysphagia and colon polyps. We'll perform EGD and colonoscopy.
--- NOTE | 2021-10-16 08:30 | P.OP ---
Date of Procedure: 10/16/21 Preoperative Diagnosis: Dysphagia, history of colon polyps Postoperative Diagnosis: Antral gastritis Transverse colon polyp Left colon polyp Diverticulosis Hemorrhoids Procedure(s) Performed: EGD Colonoscopy Anesthesia: ELI Surgeon: Alcides Christina Pathology: other (Antrum, left colon polyp, transverse colon polyp) Condition: stable Disposition: PACU Description of Procedure: The patient's placed on the endoscopy table in the lateral position. He received IV sedation. The gastroscope placed oropharynx passed in the esophagus and stomach. Scope was then placed through the pylorus. First and second portion duodenum appeared normal. Scope was then brought back the antrum this was mildly inflamed. A biopsies performed. Scope was unretroflexed and remainder the stomach appeared normal. The GE junction was at 38 cm. There is a small sliding hiatal hernia. The distal esophagusAppeared Normal. Proximal esophagus appeared normal. Scope withdrawn for patient. Next digital rectal exam was performed. This revealed internal and external hemorrhoids. Flexible colonoscope was then placed patient anus passed throughout the entire colon. Ileocecal valve was visualized. The cecum, ascending colon appeared normal. In the transverse colon was small polyps is removed with snare. Scope brought back in the descending; there is moderate diverticular changes. In the left colon there was a another polyp seen removed the cold forcep. Scope was then brought back the rectum and this appeared normal. Scope withdrawn for patient.
[2021-10-16 08:32] VITALS: RESP 16
[2021-10-16 08:45] VITALS: BP 132/77; PULSE 63
--- NOTE | 2021-10-16 10:27 | P.OP ---
Date of Procedure: 10/16/21 Preoperative Diagnosis: Rectal bleeding Postoperative Diagnosis: Normal colon Procedure(s) Performed: Colonoscopy Anesthesia: MAC Surgeon: Alcides Christina Pathology: none sent Condition: stable Disposition: PACU Description of Procedure: The patient's placed on the endoscopy table in the lateral position. He received IV sedation. Digital rectal exam was performed. This revealed no abnormality. The flexible colonoscope was then placed in the patient's anus and passed throughout the entire colon. The ileocecal valve was visualized was not visualized secondary to a large amount of stool.. The , ascending and transverse colon appeared normal. In the descending and sigmoid colon there was no pathology seen. Scope was brought back the rectum and this appeared normal. Scope withdrawn for patient. There was no evidence of any GI bleed. Presumed patient may have had some anal trauma when he had GI bleed. However today his visualize colon was entirely normal
== END 2021-10-16 09:15 | disposition home or self-care (01) ==
LOC: ORWHC2ENDO 07:23
PROVIDERS: ATTEND Surgery
DX: Z12.11 Encounter for screening for malignant neoplasm of colon (principal); D12.4 Benign neoplasm of descending colon; D12.3 Benign neoplasm of transverse colon; K57.30 Diverticulosis of large intestine without perforation or abscess without bleeding; K44.9 Diaphragmatic hernia without obstruction or gangrene; Z86.010 Personal history of colon polyps; K29.50 Unspecified chronic gastritis without bleeding; K64.8 Other hemorrhoids; K64.4 Residual hemorrhoidal skin tags; I48.91 Unspecified atrial fibrillation; I25.10 Atherosclerotic heart disease of native coronary artery without angina pectoris; I10 Essential (primary) hypertension; E11.9 Type 2 diabetes mellitus without complications; K21.9 Gastro-esophageal reflux disease without esophagitis; Z86.16 Personal history of COVID-19; E78.5 Hyperlipidemia, unspecified; M19.90 Unspecified osteoarthritis, unspecified site; D51.0 Vitamin B12 deficiency anemia due to intrinsic factor deficiency; Z86.73 Personal history of transient ischemic attack (TIA), and cerebral infarction without residual deficits; D75.9 Disease of blood and blood-forming organs, unspecified; Z85.828 Personal history of other malignant neoplasm of skin; N40.0 Benign prostatic hyperplasia without lower urinary tract symptoms; Z95.1 Presence of aortocoronary bypass graft; M51.26 Other intervertebral disc displacement, lumbar region; G89.29 Other chronic pain; M54.50 Low back pain, unspecified; M54.2 Cervicalgia; Z90.49 Acquired absence of other specified parts of digestive tract; Z96.653 Presence of artificial knee joint, bilateral; Z98.890 Other specified postprocedural states; Z98.42 Cataract extraction status, left eye; Z98.41 Cataract extraction status, right eye; Z96.1 Presence of intraocular lens; Z82.49 Family history of ischemic heart disease and other diseases of the circulatory system; Z83.3 Family history of diabetes mellitus; Z83.6 Family history of other diseases of the respiratory system; Z79.01 Long term (current) use of anticoagulants; Z79.84 Long term (current) use of oral hypoglycemic drugs; Z79.82 Long term (current) use of aspirin; Z79.52 Long term (current) use of systemic steroids; Z79.899 Other long term (current) drug therapy; Z88.1 Allergy status to other antibiotic agents
CPT/HCPCS: 88305; 45380; 45385; 43239; J2250; J3010; J2704; J2001

== ENCOUNTER → 2022-02-18 | Outpatient (CLI) | payer MEDICARE, BC ==
--- NOTE | 2022-02-18 15:57 | CT ---
EXAMINATION TYPE: CT abdomen pelvis wo con DATE OF EXAM: 02/18/2022 COMPARISON: 11/02/2013 HISTORY: B/L FLANK PAIN CT DLP: 1595.0 mGycm Examination of the solid and hollow viscera is limited given the lack of contrast. FINDINGS: LUNG BASES: No evidence for nodule. No evidence for infiltrate. LIVER/GB: The gallbladder is surgically No space-occupying hepatic lesion. PANCREAS: No pancreatic mass identified. No inflammatory process seen. SPLEEN: No evidence for splenomegaly. No intrasplenic lesions seen. ADRENALS: No adrenal nodules identified. No evidence for thickening. KIDNEYS: Renal cystic changes noted No nephrolithiasis. No hydronephrosis. BOWEL: Appendix has a normal appearance. No evidence of bowel obstruction. No inflammatory process. Lymph nodes: No evidence for adenopathy greater than 1 cm. Abdominal aorta: Atheromatous changes seen. No evidence for aneurysm. Genital organs: Prostate enlargement is noted. Other: Severe degenerative change lumbar spine. IMPRESSION: 1. No acute intra-abdominal or intrapelvic process seen to account for the patient's symptoms.
== END | disposition home or self-care (01) ==
LOC: RADCTMAIN 15:21
PROVIDERS: ATTEND Family Medicine
DX: R10.32 Left lower quadrant pain (principal); R31.29 Other microscopic hematuria
CPT/HCPCS: 74176

== ENCOUNTER 2022-05-07 11:43 | Emergency (ER) | payer MEDICARE, BC ==
[2022-05-07 11:56] VITALS: TEMP 97.9
--- NOTE | 2022-05-07 12:43 | ED ---
General Adult HPI - General Chief complaint: Chest Pain Stated complaint: Chest pain Time Seen by Provider: 05/07/22 11:51 Source: patient Mode of arrival: EMS - History of Present Illness Initial comments: Dictation was produced using [employer] dictation software. please excuse any grammatical, word or spelling errors. Chief Complaint: 76-year-old male presents to emergency room with chest pain History of Present Illness: She is 76-year-old male presents emergency department for chest pain. Patient states it is sharp and radiates to his back. Patient states that he's had pain similar to this in the past though not as severe. Patient states that it sharp and sometimes worse with movement. Does complain of suffered from dizziness for the last couple days. Patient believes that he needs a carotid image. With his primary care doctor's today and was told to come to the emergency department. Denies any fever or constitutional symptoms. No nausea vomiting. No numbness and paresthesias to the arms or legs. Patient states this pain sometimes radiate to his left jaw. He does have a history of coronary artery disease and coronary artery stent placement. The ROS documented in this emergency department record has been reviewed and confirmed by me. Those systems with pertinent positive or negative responses have been documented in the HPI. All other systems are other negative and/or noncontributory. PHYSICAL EXAM: General Impression: Alert and oriented x3, not in acute distress HEENT: Normocephalic atraumatic, extra-ocular movements intact, pupils equal and reactive to light bilaterally, mucous membranes moist. Cardiovascular: Heart regular rate and rhythm Chest: Able to complete full sentences, no retractions, no tachypnea Abdomen: abdomen soft, non-tender, non-distended, no organomegaly Musculoskeletal: Pulses present and equal in all extremities, no peripheral edema Motor: no focal deficits noted Neurological: CN II-XII grossly intact, no focal motor or sensory deficits noted Skin: Intact with no visualized rashes Psych: Normal affect and mood ED course: 76-year-old well-appearing male multiple comorbidities presents to the emergency department for chest pain that radiates to his back. Vital signs upon arrival are within acceptable limits. Patient's well-appearing at the bedside. Nursing notes and chart review was performed My EKG interpretation: Ventricular rate 67, a flutter, QRS 174, QTC 426. No MO prolongation, no QTC prolongation, no ST or T-wave changes noted. EKG compared to 08/24/2021 showing no changes. Overall, this EKG is unremarkable Laboratory evaluation obtained per it CBC, coag panel, [place] is unremarkable. Mild hypomagnesemia level I.5. Patient given IV magnesium. Troponin is negative. CT angiography of the chest shows no acute processes. Neck CT angiography shows minimal stenosis of the bilateral internal carotid arteries. Patient observed in the emergency department for 3 hours. Reevaluated at bedside at 2:45 PM found with stable medical condition. Patient's symptoms are very atypical. Disposition options were discussed and he is agreeable with discharge. Patient advised follow-up with his primary care doctor. Was pt. sent in by a medical professional or institution (, PA, LINE MAINTENANCE TECHNICIAN, urgent care, hospital, or residential...) When possible be specific @ -No Did you speak to anyone other than the patient for history (EMS, parent, family, police, friend...)? What history was obtained from this source @ - at the Bedside Did you review nursing and triage notes (agree or disagree)? Why? @ -I reviewed and agree with nursing and triage notes Were old charts reviewed (outside hosp., previous admission, EMS record, old EKG, old radiological studies, urgent care reports/EKG's, residential records)? Report findings @ -No old charts were reviewed Differential Diagnosis (chest pain, altered mental status, abdominal pain women, abdominal pain men, vaginal bleeding, weakness, fever, dyspnea, syncope, headache, dizziness, GI bleed, back pain, seizure, CVA, palpatations, mental health)? @ -Differential chest pain EKG interpreted by me (3pts min.). @ -As above X-rays interpreted by me (1pt min.). @ -None done CT interpreted by me (1pt min.). @ -unremarkable U/S interpreted by me (1pt. min.). @ -None done What testing was considered but not performed or refused? (CT, X-rays, U/S, labs)? Why? @ -Chest x-ray was considered however patient received a CT which is a better test. What meds were considered but not given or refused? Why? @ -Aspirin was considered however patient's pain is very atypical Did you discuss the management of the patient with other professionals (professionals i.e. , PA, LINE MAINTENANCE TECHNICIAN, lab, RT, psych nurse, social work professor, chair caner, teacher, loan officer, family caseworker)? Give summary @ -no Was smoking cessation discussed for >3mins.? @ -No Was critical care preformed (if so, how long)? @ -No Were there social determinants of health that impacted care today? How? (Home lessness, low income, unemployed, alcoholism, drug addiction, transportation, low edu. Level, literacy, decrease access to med. care, nursing home, rehab)? @ -No Was there de-escalation of care discussed even if they declined (Discuss DNR or withdrawal of care, Hospice)? DNR status @ -No What co-morbidities impacted this encounter? (DM, HTN, Smoking, COPD, CAD, Cancer, CVA, ARF, Chemo, Hep., AIDS, mental health diagnosis, sleep apnea, morbid obesity)? @ -None Was patient admitted / discharged? Hospital course, mention meds given and route, prescriptions, significant lab abnormalities, going to OR and other pertinent info. @ -See above Undiagnosed new problem with uncertain prognosis? @ -No Drug Therapy requiring intensive monitoring for toxicity (Heparin, Nitro, Insulin, Cardizem)? @ -No Were any procedures done? @ -No Diagnosis/symptom? @ -Acute on chronic chest pain Acute, or Chronic, or Acute on Chronic? @ -See above Uncomplicated (without systemic symptoms) or Complicated (systemic symptoms)? @ -default Side effects of treatment? @ -No Exacerbation, Progression, or Severe Exacerbation? @ -No Poses a threat to life or bodily function? How? (Chest pain, [place], [place], pneumonia, PE, COPD, DKA, ARF, appy, cholecystitis, CVA, Diverticulitis, Homicidal, Suicidal, threat to staff... and all critical care pts) @ -No - Related Data Home Medications Medication Instructions Recorded Confirmed Multivitamin [Men's Multi-Vitamin] 1 tab PO DAILY 04/01/15 05/07/22 Tamsulosin HCl [Flomax] 0.4 mg PO DAILY 10/09/18 05/07/22 Metoprolol Succinate (ER) [Toprol 50 mg PO BID 12/20/18 05/07/22 XL] Pantoprazole [Protonix] 40 mg PO DAILY 12/20/18 05/07/22 metFORMIN HCL 500 mg PO BID 12/20/18 05/07/22 Atorvastatin [Lipitor] 40 mg PO HS 09/22/20 05/07/22 Canagliflozin [Invokana] 300 mg PO DAILY 09/22/20 05/07/22 Cholecalciferol [Vitamin D3 (25 25 mcg PO DAILY 09/22/20 05/07/22 Mcg = 1000 Iu)] lisinopriL [Zestril] 10 mg PO HS 09/22/20 05/07/22 Apixaban [Eliquis] 5 mg PO BID 08/24/21 05/07/22 predniSONE 5 mg PO DAILY 08/24/21 05/07/22 Cyanocobalamin (Vitamin B-12) 5,000 mcg PO DAILY 05/07/22 05/07/22 [Vitamin B-12] Gabapentin 600 mg PO HS 05/07/22 05/07/22 Allergies Allergy/AdvReac Type Severity Reaction Status Date / Time azithromycin [From Zithromax] AdvReac Nausea & Verified 05/07/22 14:36 Vomiting Review of Systems ROS Statement: Those systems with pertinent positive or pertinent negative responses have been documented in the HPI. ROS Other: All systems not noted in ROS Statement are negative. Past Medical History Past Medical History: Atrial Fibrillation, Blood Disorder, Coronary Artery Disease (CAD), Cancer, CVA/TIA, Diabetes Mellitus, GERD/Reflux, Hyperlipidemia, Hypertension, Osteoarthritis (OA), Prostate Disorder, Vascular Disorder Additional Past Medical History / Comment(s): Hx skin cancer, post CABG A fib, TIA years ago, pernicious anemia with monthly injections, hiatal hernia, BPH, venous insufficiency, occasional lower leg/pedal edema, spinal stenosis, herniated disc L1, spinal cyst, chronic low back pain, rare neck pain, benign colon polyp, hx Covid 06/2019. History of Any Multi-Drug Resistant Organisms: None Reported Past Surgical History: Bowel Resection, Cholecystectomy, Coronary Bypass/CABG, Heart Catheterization, Hernia Repair, Joint Replacement Additional Past Surgical History / Comment(s): 10/2018 CABG 2 vessels, bilateral knee replacements, right done twice, bowel resection at age 12 yrs d/t obstruction, umbilical hernia repair, skin cancer removed from 3 spots, colonoscopy, back injections, bilateral cataract removals with lens implants. Past Anesthesia/Blood Transfusion Reactions: No Reported Reaction Past Psychological History: No Psychological Hx Reported Smoking Status: Never smoker Past Alcohol Use History: Abuse Past Drug Use History: None Reported - Past Family History Father Family Medical History: Congestive Heart Failure (CHF), CVA/TIA Additional Family Medical History / Comment(s): at age 68. Brother(s) Family Medical History: Cancer, COPD, Diabetes Mellitus Additional Family Medical History / Comment(s): Heart problems. Mother Family Medical History: Myocardial Infarction ([place]) Additional Family Medical History / Comment(s): at 79 w/ [place]. Course Vital Signs 05/07/22 05/07/22 11:45 14:00 Temperature 97.9 F Pulse Rate 76 66 Respiratory 18 18 Rate Blood Pressure 117/71 121/71 O2 Sat by Pulse 96 95 Oximetry Medical Decision Making - Lab Data Result diagrams: 05/07/22 12:42 05/07/22 12:42 Lab Results 05/07/22 05/07/22 05/07/22 Range/Units 12:42 12:42 12:42 WBC 8.0 (3.8-10.6) k/uL RBC 4.89 (4.30-5.90) m/uL Hgb 14.7 (13.0-17.5) gm/dL Hct 42.7 (39.0-53.0) % MCV 87.3 (80.0-100.0) fL MCH 30.2 (25.0-35.0) pg MCHC 34.5 (31.0-37.0) g/dL RDW 14.7 (11.5-15.5) % Plt Count 128 L (150-450) k/uL MPV 8.0 Neutrophils % 67 % Lymphocytes % 21 % Monocytes % 7 % Eosinophils % 2 % Basophils % 1 % Neutrophils # 5.4 (1.3-7.7) k/uL Lymphocytes # 1.7 (1.0-4.8) k/uL Monocytes # 0.5 (0-1.0) k/uL Eosinophils # 0.2 (0-0.7) k/uL Basophils # 0.0 (0-0.2) k/uL PT 11.3 (9.0-12.0) sec INR 1.1 (<1.2) APTT 25.7 (22.0-30.0) sec Sodium 140 (137-145) mmol/L Potassium 3.8 (3.5-5.1) mmol/L Chloride 108 H (98-107) mmol/L Carbon Dioxide 26 (22-30) mmol/L Anion Gap 6 mmol/L BUN 16 (9-20) mg/dL Creatinine 0.95 (0.66-1.25) mg/dL Est GFR (CKD-EPI)AfAm 89 (>60 ml/min/1.73 sqM) Est GFR (CKD-EPI)NonAf 77 (>60 ml/min/1.73 sqM) Glucose 105 H (74-99) mg/dL Calcium 8.7 (8.4-10.2) mg/dL Magnesium 1.5 L (1.6-2.3) mg/dL Troponin I (0.000-0.034) ng/mL 05/07/22 Range/Units 12:42 WBC (3.8-10.6) k/uL RBC (4.30-5.90) m/uL Hgb (13.0-17.5) gm/dL Hct (39.0-53.0) % MCV (80.0-100.0) fL MCH (25.0-35.0) pg MCHC (31.0-37.0) g/dL RDW (11.5-15.5) % Plt Count (150-450) k/uL MPV Neutrophils % % Lymphocytes % % Monocytes % % Eosinophils % % Basophils % % Neutrophils # (1.3-7.7) k/uL Lymphocytes # (1.0-4.8) k/uL Monocytes # (0-1.0) k/uL Eosinophils # (0-0.7) k/uL Basophils # (0-0.2) k/uL PT (9.0-12.0) sec INR (<1.2) APTT (22.0-30.0) sec Sodium (137-145) mmol/L Potassium (3.5-5.1) mmol/L Chloride (98-107) mmol/L Carbon Dioxide (22-30) mmol/L Anion Gap mmol/L BUN (9-20) mg/dL Creatinine (0.66-1.25) mg/dL Est GFR (CKD-EPI)AfAm (>60 ml/min/1.73 sqM) Est GFR (CKD-EPI)NonAf (>60 ml/min/1.73 sqM) Glucose (74-99) mg/dL Calcium (8.4-10.2) mg/dL Magnesium (1.6-2.3) mg/dL Troponin I 0.018 (0.000-0.034) ng/mL Disposition Clinical Impression: Chest pain Disposition: HOME SELF-CARE Condition: Fair Instructions (If sedation given, give patient instructions): Chest Pain (ED) Is patient prescribed a controlled substance at d/c from ED?: No Referrals: Triny Weathers DO [Primary Care Provider] - 1-2 days Time of Disposition: 14:47
[2022-05-07 12:55] LABS: Basophils % (A) 1 %; Eosinophils # (A) 0.2 k/uL (0-0.7); Eosinophils % (A) 2 %; HCT 42.7 % (39.0-53.0); HGB 14.7 gm/dL (13.0-17.5); Lymphocytes # (A) 1.7 k/uL (1.0-4.8); Lymphocytes % (A) 21 %; MCH 30.2 pg (25.0-35.0); MCHC 34.5 g/dL (31.0-37.0); MCV 87.3 fL (80.0-100.0); Monocytes # (A) 0.5 k/uL (0-1.0); Monocytes % (A) 7 %; Neutrophils # (A) 5.4 k/uL (1.3-7.7); Neutrophils % (A) 67 %; Platelet Count 128 k/uL (150-450); RBC 4.89 m/uL (4.30-5.90); RDW 14.7 % (11.5-15.5)
[2022-05-07 13:03] LABS: INR 1.1 (<1.2); Partial Thromboplastin Time 25.7 sec (22.0-30.0); Prothrombin Time 11.3 sec (9.0-12.0)
[2022-05-07 13:05] LABS: Calcium 8.7 mg/dL (8.4-10.2); Magnesium 1.5 mg/dL (1.6-2.3); Potassium 3.8 mmol/L (3.5-5.1)
[2022-05-07] MEDS: MAGNESIUM SULFATE-D5W PMX 1 GM in DEXTROSE/WATER 1 100ML.BAG IVPB SCH ×2 (14:02→15:13)
--- NOTE | 2022-05-07 14:15 | CT ---
EXAMINATION TYPE: CT angio chest DATE OF EXAM: 05/07/2022 COMPARISON: 09/22/2020 HISTORY: Chest pain radiating into neck. CT DLP: 1286 mGycm CONTRAST: CTA thoracic aorta with 3-D reconstruction is performed and with IV Contrast, patient injected with 5 0ml mL of Isovue 370. Contrast CTA of the thoracic aorta was performed from the lung apex through the upper abdomen. 3D re construction imaging obtained at a separate workstation. CT Chest: THORACIC AORTA: No evidence for thoracic aortic aneurysm. Mild atheromatous changes seen. There is n o evidence for dissection or periaortic collection. LUNGS: The lungs are clear and free of infiltrate or atelectasis. No pulmonary nodule or mass is det ected. No pleural effusion or CT evidence of interstitial lung disease. MEDIASTINUM: No evidence for mediastinal hematoma. The heart is enlarged. No evidence for mediast inal mass or adenopathy. HILAR STRUCTURES: No evidence for mass. No hilar adenopathy is appreciated. OTHER: No significant abnormality. IMPRESSION- No evidence for thoracic aortic aneurysm or dissection.
--- NOTE | 2022-05-07 14:18 | CT ---
EXAMINATION TYPE: CT angio neck DATE OF EXAM: 05/07/2022 COMPARISON: none HISTORY: Chest pain radiating into neck. CT DLP: 1327 mGycm CONTRAST: CTA cervical carotids is performed and with IV Contrast, patient injected with 50ml mL of Isovue 370. Contrast CTA of the cervical carotids was performed 3-D reconstruction imaging obtained at a separate workstation. Right carotid system: Mild plaque is seen of the right common carotid artery. There is mild plaque a lso noted at the carotid bulb. Estimated diameter reduction is less than 50%. ECA is patent. Righ t vertebral artery appears unremarkable. Left carotid system: Mild plaque is seen of the left common carotid artery. There is mild plaque als o noted at the carotid bulb. Estimated diameter reduction is less than 50%. ECA is patent. Left ve rtebral artery appears unremarkable. Chronic maxillary sinusitis. IMPRESSION: 1. Estimated diameter reduction Right ICA less than 50% 2. Estimated diameter reduction Left ICA less than 50% NASCET criteria was used in interpretation of this exam?
[2022-05-07] MEDS ORDERED: MAGNESIUM OXIDE 400 MG TAB PO STA (15:13)
[2022-05-07 15:17] VITALS: BP 130/79; PULSE 72; RESP 16
== END 2022-05-07 15:21 | disposition home or self-care (01) ==
LOC: EC 11:43
DX: R07.9 Chest pain, unspecified (principal); I48.91 Unspecified atrial fibrillation; I25.10 Atherosclerotic heart disease of native coronary artery without angina pectoris; Z86.73 Personal history of transient ischemic attack (TIA), and cerebral infarction without residual deficits; E11.9 Type 2 diabetes mellitus without complications; K21.9 Gastro-esophageal reflux disease without esophagitis; E78.5 Hyperlipidemia, unspecified; I10 Essential (primary) hypertension; M19.90 Unspecified osteoarthritis, unspecified site; Z88.0 Allergy status to penicillin; Z79.84 Long term (current) use of oral hypoglycemic drugs; Z79.899 Other long term (current) drug therapy
CPT/HCPCS: 36415; 80048; 83735; 84484; 85025; 85610; 85730; 70498; 71275; 99285; 96365; J3475; Q9967

== ENCOUNTER 2022-07-14 17:05 | Observation (INO) | payer MEDICARE, BC ==
--- NOTE | 2022-07-14 18:04 | ED ---
SOB HPI - General Source: patient, RN notes reviewed Mode of arrival: wheelchair Limitations: no limitations <Norma Edwards - Last Filed: 07/14/22 18:11> <Ceci Murrieta - Last Filed: 07/15/22 17:16> - General Chief Complaint: Shortness of Breath Stated Complaint: SOB/Chest Pain Time Seen by Provider: 07/14/22 18:03 - History of Present Illness Initial Comments: Patient is a 76-year-old male who presents to the emergency department with a chief complaint of chest pain. It started Wednesday. Patient reports intermittent episodes of stabbing pain in the middle of his chest which radiates to his back. Patient states he's had pain similar to this in the past but it feels worse in severity today. Pain is worsened with movement. Patient feels short of breath. No numbness or tingling in the extremities. Today he developed nausea and has had belching throughout the day. No vomiting. He denies fever, chills, cough, cold-like symptoms. Patient has extensive cardiac history. (Norma Edwards) Patient is a 76-year-old male presenting with chief complaint of shortness of breath and chest pain that has been ongoing for the last week. Patient states that the pain is sharp in nature, worse with exertion and improves with rest. Patient states he was seen by his PCP on Wednesday, was prescribed a breo inhaler and rescue inhaler, symptoms have continued to worsen. No radiation of pain down the arm, of the neck, or to the back. No nausea, vomiting, abdominal pain. No cough, chest, fever, chills. (Ceci Murrieta) - Related Data Home Medications Medication Instructions Recorded Confirmed Multivitamin [Men's Multi-Vitamin] 1 tab PO DAILY 04/01/15 07/14/22 Tamsulosin HCl [Flomax] 0.4 mg PO DAILY 10/09/18 07/14/22 Metoprolol Succinate (ER) [Toprol 50 mg PO BID 12/20/18 07/14/22 XL] Pantoprazole [Protonix] 40 mg PO HS 12/20/18 07/14/22 metFORMIN HCL 500 mg PO BID 12/20/18 07/14/22 Atorvastatin [Lipitor] 40 mg PO HS 09/22/20 07/14/22 Canagliflozin [Invokana] 300 mg PO DAILY 09/22/20 07/14/22 Cholecalciferol [Vitamin D3 (25 25 mcg PO DAILY 09/22/20 07/14/22 Mcg = 1000 Iu)] lisinopriL [Zestril] 10 mg PO DAILY 09/22/20 07/14/22 Apixaban [Eliquis] 5 mg PO BID 08/24/21 07/14/22 predniSONE 5 mg PO DAILY 08/24/21 07/14/22 Cyanocobalamin (Vitamin B-12) 5,000 mcg PO DAILY 05/07/22 07/14/22 [Vitamin B-12] Gabapentin 600 mg PO HS 05/07/22 07/14/22 Albuterol Sulfate [Albuterol 1 - 2 puff PO RT-Q4H PRN 07/14/22 07/14/22 Sulfate Hfa] Fluticasone/Vilanterol [Breo 1 puff INHALATION RT-DAILY 07/14/22 07/14/22 Ellipta 100-25 Mcg Inhaler] Gabapentin [Neurontin] 300 mg PO DAILY 07/14/22 07/14/22 Allergies Allergy/AdvReac Type Severity Reaction Status Date / Time azithromycin [From Zithromax] AdvReac Nausea & Verified 07/14/22 20:41 Vomiting Review of Systems ROS Other: All systems not noted in ROS Statement are negative. <Norma Edwards - Last Filed: 07/14/22 18:11> ROS Other: All systems not noted in ROS Statement are negative. <Ceci Murrieta - Last Filed: 07/15/22 17:16> ROS Statement: Those systems with pertinent positive or pertinent negative responses have been documented in the HPI. Past Medical History Past Medical History: Atrial Fibrillation, Blood Disorder, Coronary Artery Disease (CAD), Cancer, CVA/TIA, Diabetes Mellitus, GERD/Reflux, Hyperlipidemia, Hypertension, Osteoarthritis (OA), Prostate Disorder, Vascular Disorder Additional Past Medical History / Comment(s): Hx skin cancer, post CABG A fib, TIA years ago, pernicious anemia with monthly injections, hiatal hernia, BPH, venous insufficiency, occasional lower leg/pedal edema, spinal stenosis, herniated disc L1, spinal cyst, chronic low back pain, rare neck pain, benign colon polyp, hx Covid 06/2019. History of Any Multi-Drug Resistant Organisms: None Reported Past Surgical History: Bowel Resection, Cholecystectomy, Coronary Bypass/CABG, Heart Catheterization, Hernia Repair, Joint Replacement Additional Past Surgical History / Comment(s): 10/2018 CABG 2 vessels, bilateral knee replacements, right done twice, bowel resection at age 12 yrs d/t obstruction, umbilical hernia repair, skin cancer removed from 3 spots, colonoscopy, back injections, bilateral cataract removals with lens implants. Past Anesthesia/Blood Transfusion Reactions: No Reported Reaction Past Psychological History: No Psychological Hx Reported Smoking Status: Never smoker Past Alcohol Use History: None Reported Past Drug Use History: None Reported - Past Family History Father Family Medical History: Congestive Heart Failure (CHF), CVA/TIA Additional Family Medical History / Comment(s): at age 68. Brother(s) Family Medical History: Cancer, COPD, Diabetes Mellitus Additional Family Medical History / Comment(s): Heart problems. Mother Family Medical History: Myocardial Infarction ([place]) Additional Family Medical History / Comment(s): at 79 w/ [place]. <Norma Edwards - Last Filed: 07/14/22 18:11> General Exam Limitations: no limitations <Norma Edwards - Last Filed: 07/14/22 18:11> Limitations: no limitations General appearance: alert, in no apparent distress Head exam: Present: atraumatic, normocephalic, normal inspection Eye exam: Present: normal appearance Neck exam: Present: normal inspection Respiratory exam: Present: normal lung sounds bilaterally. Absent: respiratory distress, wheezes, rales, rhonchi, stridor Cardiovascular Exam: Present: regular rate, normal rhythm, normal heart sounds. Absent: systolic murmur, diastolic murmur, rubs, gallop, clicks Neurological exam: Present: alert, oriented X3, CN II-XII intact Psychiatric exam: Present: normal affect, normal mood Skin exam: Present: warm, dry, intact, normal color. Absent: rash <Ceci Murrieta - Last Filed: 07/15/22 17:16> - General Exam Comments Initial Comments: Visual Physical Exam Vital signs reviewed General: Well-appearing, nontoxic, no acute distress. Head: Normocephalic, atraumatic Eyes: PERRLA, EOMI ENT: Airway patent Chest: Nonlabored breathing Skin: No visual rash, normal skin tone Neuro: Alert and oriented 3 Musculoskeletal: No gross abnormalities (Norma Edwards) Course Vital Signs 07/14/22 17:25 Temperature 97.7 F Pulse Rate 85 Respiratory 18 Rate Blood Pressure 121/74 O2 Sat by Pulse 95 Oximetry Medical Decision Making - Lab Data Result diagrams: 07/14/22 20:27 07/14/22 20:27 <Ceci Murrieta - Last Filed: 07/15/22 17:16> - Medical Decision Making Was pt. sent in by a medical professional or institution (, PA, ROOFING APPRENTICE, urgent care, hospital, or custodial...) When possible be specific @ -No Did you speak to anyone other than the patient for history (EMS, parent, family, police, friend...)? What history was obtained from this source @ - Did you review nursing and triage notes (agree or disagree)? Why? @ -I reviewed and agree with nursing and triage notes Were old charts reviewed (outside hosp., previous admission, EMS record, old EKG, old radiological studies, urgent care reports/EKG's, custodial records)? Report findings @ -No old charts were reviewed Differential Diagnosis (chest pain, altered mental status, abdominal pain women, abdominal pain men, vaginal bleeding, weakness, fever, dyspnea, syncope, headache, dizziness, GI bleed, back pain, seizure, CVA, palpatations, mental health, musculoskeletal)? @ -MDM Differential Dyspnea: Coronary syndrome, arrhythmia, tamponade, asthma, COPD, pulmonary embolism, pneumonia, pneumothorax, pulmonary effusion, anaphylaxis, diabetic ketoacidosis, flailed chest, pulmonary contusion, diaphragmatic rupture, anemia, neuromuscular this is not meant to be an all-inclusive list. EKG interpreted by me (3pts min.). @ -Atrial flutter/tachycardia ventricular rate 75. QRS 114. QT 408. QTC 437. X-rays interpreted by me (1pt min.). @ -Chest x-ray shows no acute process, stable findings from 08/24/21 with cardiomegaly and chronic interstitial lung markings. CT interpreted by me (1pt min.). @ -None done U/S interpreted by me (1pt. min.). @ -None done What testing was considered but not performed or refused? (CT, X-rays, U/S, labs)? Why? @ -None What meds were considered but not given or refused? Why? @ -None Did you discuss the management of the patient with other professionals (professionals i.e. , PA, ROOFING APPRENTICE, lab, RT, psych nurse, social services specialist, torpedo worker, teacher, parachute/combatant diver officer, case planner)? Give summary @ -Discussed with admitting provider from [facility] hospitalist group Was smoking cessation discussed for >3mins.? @ -No Was critical care preformed (if so, how long)? @ -No Were there social determinants of health that impacted care today? How? (Homelessness, low income, unemployed, alcoholism, drug addiction, transportation, low edu. Level, literacy, decrease access to med. care, fdc, rehab)? @ -No Was there de-escalation of care discussed even if they declined (Discuss DNR or withdrawal of care, Hospice)? DNR status @ -No What co-morbidities impacted this encounter? (DM, HTN, Smoking, COPD, CAD, Cancer, CVA, ARF, Chemo, Hep., AIDS, mental health diagnosis, sleep apnea, morbid obesity)? @ -Atrial fibrillation, CAD, diabetes, hypertension, hyperlipidemia Was patient admitted / discharged? Hospital course, mention meds given and route, prescriptions, significant lab abnormalities, going to OR and other pertinent info. @ -Patient is 76-year-old male presenting with chief complaint of chest discomfort and progressive shortness of breath. On physical examination heart and lungs are clear to auscultation, no active chest pain at this time. Lab work is essentially unremarkable with negative troponin, d-dimer, and BNP. Chest x-ray shows no acute process. EKG shows no ischemic changes. Patient will be admitted for evaluation by cardiology and pulmonology. I spoke with Willie Lei from [facility] who accepted admission. Patient is agreeable with this plan. I discussed this case with my attending Dr. Dean. Undiagnosed new problem with uncertain prognosis? @ -No Drug Therapy requiring intensive monitoring for toxicity (Heparin, Nitro, Insulin, Cardizem)? @ -No Were any procedures done? @ -No Diagnosis/symptom? @ -Chest pain Acute, or Chronic, or Acute on Chronic? @ -Acute Uncomplicated (without systemic symptoms) or Complicated (systemic symptoms)? @ -complicated Side effects of treatment? @ -No Exacerbation, Progression, or Severe Exacerbation? @ -No Poses a threat to life or bodily function? How? (Chest pain, [place], [place], pneumonia, PE, COPD, DKA, ARF, appy, cholecystitis, CVA, Diverticulitis, Homicidal, Suic idal, threat to staff... and all critical care pts) @ -yes Atrial flutter/tachycardia. Ventricular rate 75. QRS 114. QT 408. QTC 437. Normal axis. (Ceci Murrieta) - Lab Data Lab Results 07/14/22 07/14/22 07/14/22 Range/Units 20:27 20:27 20:27 WBC 8.1 (3.8-10.6) k/uL RBC 5.09 (4.30-5.90) m/uL Hgb 14.4 (13.0-17.5) gm/dL Hct 44.0 (39.0-53.0) % MCV 86.3 (80.0-100.0) fL MCH 28.3 (25.0-35.0) pg MCHC 32.9 (31.0-37.0) g/dL RDW 14.4 (11.5-15.5) % Plt Count 139 L (150-450) k/uL MPV 8.3 Neutrophils % 70 % Lymphocytes % 20 % Monocytes % 7 % Eosinophils % 2 % Basophils % 0 % Neutrophils # 5.6 (1.3-7.7) k/uL Lymphocytes # 1.6 (1.0-4.8) k/uL Monocytes # 0.6 (0-1.0) k/uL Eosinophils # 0.2 (0-0.7) k/uL Basophils # 0.0 (0-0.2) k/uL Poikilocytosis Slight PT 10.6 (9.0-12.0) sec INR 1.0 (<1.2) APTT 26.0 (22.0-30.0) sec D-Dimer <0.17 (<0.60) mg/L FEU Sodium 141 (137-145) mmol/L Potassium 4.2 (3.5-5.1) mmol/L Chloride 108 H (98-107) mmol/L Carbon Dioxide 25 (22-30) mmol/L Anion Gap 8 mmol/L BUN 17 (9-20) mg/dL Creatinine 1.09 (0.66-1.25) mg/dL Est GFR (CKD-EPI)AfAm 75 (>60 ml/min/1.73 sqM) Est GFR (CKD-EPI)NonAf 65 (>60 ml/min/1.73 sqM) Glucose 110 H (74-99) mg/dL Calcium 8.8 (8.4-10.2) mg/dL Total Bilirubin 1.2 (0.2-1.3) mg/dL AST 20 (17-59) U/L ALT 27 (4-49) U/L Alkaline Phosphatase 77 (38-126) U/L Troponin I (0.000-0.034) ng/mL NT-Pro-B Natriuret Pep pg/mL Total Protein 6.3 (6.3-8.2) g/dL Albumin 3.7 (3.5-5.0) g/dL 07/14/22 07/14/22 Range/Units 20:27 20:27 WBC (3.8-10.6) k/uL RBC (4.30-5.90) m/uL Hgb (13.0-17.5) gm/dL Hct (39.0-53.0) % MCV (80.0-100.0) fL MCH (25.0-35.0) pg MCHC (31.0-37.0) g/dL RDW (11.5-15.5) % Plt Count (150-450) k/uL MPV Neutrophils % % Lymphocytes % % Monocytes % % Eosinophils % % Basophils % % Neutrophils # (1.3-7.7) k/uL Lymphocytes # (1.0-4.8) k/uL Monocytes # (0-1.0) k/uL Eosinophils # (0-0.7) k/uL Basophils # (0-0.2) k/uL Poikilocytosis PT (9.0-12.0) sec INR (<1.2) APTT (22.0-30.0) sec D-Dimer (<0.60) mg/L FEU Sodium (137-145) mmol/L Potassium (3.5-5.1) mmol/L Chloride (98-107) mmol/L Carbon Dioxide (22-30) mmol/L Anion Gap mmol/L BUN (9-20) mg/dL Creatinine (0.66-1.25) mg/dL Est GFR (CKD-EPI)AfAm (>60 ml/min/1.73 sqM) Est GFR (CKD-EPI)NonAf (>60 ml/min/1.73 sqM) Glucose (74-99) mg/dL Calcium (8.4-10.2) mg/dL Total Bilirubin (0.2-1.3) mg/dL AST (17-59) U/L ALT (4-49) U/L Alkaline Phosphatase (38-126) U/L Troponin I <0.012 (0.000-0.034) ng/mL NT-Pro-B Natriuret Pep 391 pg/mL Total Protein (6.3-8.2) g/dL Albumin (3.5-5.0) g/dL Disposition <Norma Edwards - Last Filed: 07/14/22 18:11> Time of Disposition: 21:36 <Ceci Murrieta - Last Filed: 07/15/22 17:16> Clinical Impression: Chest pain Disposition: ADMITTED IP TO THIS HOSP Condition: Fair
--- NOTE | 2022-07-14 18:54 | XR ---
EXAMINATION TYPE: XR chest 2V DATE OF EXAM: 07/14/2022 6:14 PM COMPARISON: Chest radiographs from 08/24/2021. TECHNIQUE: XR chest 2V Frontal and lateral views of the chest. CLINICAL INDICATION:Male, 76 years old with history of difficulty breathing; FINDINGS: Lungs/Pleura: There is no evidence of pleural effusion, focal consolidation, or pneumothorax. There is flattening of the diaphragms with increased lucency of the lung apices. Interstitial lung opacitie s are similar. Pulmonary vascularity: Pulmonary vascular congestion. Heart/mediastinum: Cardiomediastinal silhouette is enlarged and stable. Musculoskeletal: No acute osseous pathology. Midline sternotomy hardware are noted. IMPRESSION: Overall stable exam from 08/24/2021 with cardiomegaly and chronic interstitial lung markings. Superimp osed COPD likely present.
[2022-07-14 20:41] LABS: Basophils % (A) 0 %; Eosinophils # (A) 0.2 k/uL (0-0.7); Eosinophils % (A) 2 %; HGB 14.4 gm/dL (13.0-17.5); Lymphocytes # (A) 1.6 k/uL (1.0-4.8); Lymphocytes % (A) 20 %; MCH 28.3 pg (25.0-35.0); MCHC 32.9 g/dL (31.0-37.0); MCV 86.3 fL (80.0-100.0); Mean Platelet Volume 8.3; Monocytes # (A) 0.6 k/uL (0-1.0); Monocytes % (A) 7 %; Neutrophils # (A) 5.6 k/uL (1.3-7.7); Neutrophils % (A) 70 %; Platelet Count 139 k/uL (150-450); Poikilocytosis Slight; RBC 5.09 m/uL (4.30-5.90); RDW 14.4 % (11.5-15.5); WBC 8.1 k/uL (3.8-10.6)
[2022-07-14 20:47] LABS: Albumin 3.7 g/dL (3.5-5.0); Calcium 8.8 mg/dL (8.4-10.2); Potassium 4.2 mmol/L (3.5-5.1); Total Bilirubin 1.2 mg/dL (0.2-1.3); Total Protein 6.3 g/dL (6.3-8.2)
[2022-07-14 20:53] LABS: Prothrombin Time 10.6 sec (9.0-12.0)
[2022-07-14] MEDS ORDERED: ASPIRIN 81 MG PO STA (21:36)
[2022-07-14] MEDS ORDERED: NALOXONE 0.4 MG/ML 1 ML VIAL IV PRN (21:51)
[2022-07-14] MEDS ORDERED: DEXTROSE 50% SYRINGE 50 ML IVP PRN ×2 (23:30)
[2022-07-14 23:41] LABS: Glucose,Whole Blood 140 mg/dL (70-110)
[2022-07-14] MEDS: INSULIN ASPART (NovoLOG) 100 UNIT/ML VIAL SQ SCH (23:41)
[2022-07-14] MEDS: APIXABAN 5 MG TAB PO SCH (23:45)
[2022-07-14] MEDS: GABAPENTIN 300 MG CAP PO SCH (23:45)
[2022-07-14] MEDS: ATORVASTATIN 40 MG TAB PO SCH (23:45)
[2022-07-14] MEDS: PANTOPRAZOLE 40 MG TABLET PO SCH (23:45)
[2022-07-14] MEDS: METOPROLOL SUCCINATE (ER) 50 MG TAB.ER.24H PO SCH (23:45)
[2022-07-15] MEDS: INSULIN ASPART (NovoLOG) 100 UNIT/ML VIAL SQ SCH ×4 (06:09→20:29)
[2022-07-15 06:10] LABS: Glucose,Whole Blood 117 mg/dL (70-110)
[2022-07-15] MEDS: ALBUTEROL NEBULIZED 2.5 MG/3 ML INHALATION PRN ×2 (08:33→13:36)
[2022-07-15] MEDS: SYMBICORT 80-4.5 MCG INHALER INHALATION SCH ×2 (08:33→18:44)
[2022-07-15] MEDS: GABAPENTIN 300 MG CAP PO SCH ×2 (08:40→20:29)
[2022-07-15] MEDS: CHOLECALCIFEROL 25 MCG (1000 IU) TABLET PO SCH (08:40)
[2022-07-15] MEDS: APIXABAN 5 MG TAB PO SCH ×2 (08:40→20:29)
[2022-07-15] MEDS: TAMSULOSIN 0.4 MG CAP.ER.24H PO SCH (08:40)
[2022-07-15] MEDS: MULTIVITAMINS, THERA 1 EACH TAB PO SCH (08:40)
[2022-07-15] MEDS: CYANOCOBALAMIN 500 MCG TAB PO SCH (08:40)
[2022-07-15] MEDS: METOPROLOL SUCCINATE (ER) 50 MG TAB.ER.24H PO SCH ×2 (08:44→20:29)
[2022-07-15] MEDS: predniSONE 5 MG TAB PO SCH (09:25)
--- NOTE | 2022-07-15 12:02 | P.CNPUL ---
History of Present Illness Consult date: 07/15/22 Requesting physician: Brandon Rodríguez Reason for consult: dyspnea Chief complaint: Chest pain, dyspnea on exertion History of present illness: This is a pleasant morbidly obese 76-year-old male patient with a known history of coronary artery disease with previous coronary artery bypass surgery in 2019, hypertension, hyperlipidemia, diabetes mellitus, Hiatal hernia, gastroesophageal reflux disease, BPH, venous insufficiency with chronic changes lower extremities, Pernicious anemia, atrial fibrillation anticoagulated with Eliquis. He is a lifelong nonsmoker. He states he has had several investigations for chest pain in the past and had been told it is musculoskeletal pain. Last Wednesday he developed chest pain again while working and could only work for about 5 minutes and rest for 15 minutes. Along with this he was also having some shortness of breath. He has also recently at the [facility] and was unable to come climb a flight of stairs due to shortness of breath and chest pain. He presented here to the emergency room for the same yesterday. Chest x- ray shows cardiomegaly with no evidence of pleural effusion, focal consolidation or pneumothorax. White count 8.1. Hemoglobin 14.4. Platelets 139. Sodium 141. Potassium 4.2. Bicarb 25. BUN 17. Creatinine 1.09. Glucose 110. AST 20. ALT 27. Troponins are negative 3. ProBNP 391. D-dimer negative at less than 0.17. He is seen today in consultation on the regular medical floor. Currently sitting up in bed. Awake and alert in no acute distress. Maintaining good O2 saturations in the 90s on room air. Denies any fever or chills. No cough or congestion. No phlegm production. He was recently initiated on Prelone and albuterol per his PCP without change in his symptoms. Again lifelong nonsmoker. No history of asthma. He does take 5 mg of prednisone daily for arthritic pain in his hands. Review of Systems REVIEW OF SYSTEMS: CONSTITUTIONAL: Denies any recent significant weight loss or weight gain. EYES: Denies change in vision. EARS, NOSE, MOUTH, THROAT: Denies headaches, denies sore throat. CARDIOVASCULAR: Positive for chest pain, no palpitations or syncopal episodes. RESPIRATORY: Positive for shortness of breath, no cough, congestion or hemoptysis. GASTROINTESTINAL: Denies change in appetite, denies abdominal pain GENITOURINARY: Denies hematuria, denies infections. MUSKULOSKELETAL: Denies pain, denies swelling. INTEGUMENTARY: Denies rash, denies eczema. NEUROLOGICAL: Denies recent memory loss, no recent seizure activity. PSYCHIATRIC: Denies anxiety, denies depression. HEMATOLOGIC/LYMPHATIC: Denies anemia, denies enlarged lymph nodes. Past Medical History Past Medical History: Atrial Fibrillation, Blood Disorder, Coronary Artery Disease (CAD), Cancer, CVA/TIA, Diabetes Mellitus, GERD/Reflux, Hyperlipidemia, Hypertension, Osteoarthritis (OA), Prostate Disorder, Vascular Disorder Additional Past Medical History / Comment(s): Hx skin cancer, post CABG A fib, TIA years ago, pernicious anemia with monthly injections, hiatal hernia, BPH, venous insufficiency, occasional lower leg/pedal edema, spinal stenosis, herniated disc L1, spinal cyst, chronic low back pain, rare neck pain, benign colon polyp, hx Covid 06/2019. History of Any Multi-Drug Resistant Organisms: None Reported Past Surgical History: Bowel Resection, Cholecystectomy, Coronary Bypass/CABG, Heart Catheterization, Hernia Repair, Joint Replacement Additional Past Surgical History / Comment(s): 10/2018 CABG 2 vessels, bilateral knee replacements, right done twice, bowel resection at age 12 yrs d/t obstruction, umbilical hernia repair, skin cancer removed from 3 spots, colonoscopy, back injections, bilateral cataract removals with lens implants. Past Anesthesia/Blood Transfusion Reactions: No Reported Reaction Past Psychological History: No Psychological Hx Reported Additional Psychological History / Comment(s): Pt resides with his spouse. Pt has had increased stress d/t spouse going thru health problems. He is independent. He has a glucometer. 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 Past Drug Use History: None Reported - Past Family History Father Family Medical History: Congestive Heart Failure (CHF), CVA/TIA Additional Family Medical History / Comment(s): at age 68. Brother(s) Family Medical History: Cancer, COPD, Diabetes Mellitus Additional Family Medical History / Comment(s): Heart problems. Mother Family Medical History: Myocardial Infarction ([place]) Additional Family Medical History / Comment(s): at 79 w/ [place]. Medications and Allergies Home Medications Medication Instructions Recorded Confirmed Type Multivitamin [Men's Multi-Vitamin] 1 tab PO DAILY 04/01/15 07/14/22 History Tamsulosin HCl [Flomax] 0.4 mg PO DAILY 10/09/18 07/14/22 History Metoprolol Succinate (ER) [Toprol 50 mg PO BID 12/20/18 07/14/22 History XL] Pantoprazole [Protonix] 40 mg PO HS 12/20/18 07/14/22 History metFORMIN HCL 500 mg PO BID 12/20/18 07/14/22 History Atorvastatin [Lipitor] 40 mg PO HS 09/22/20 07/14/22 History Canagliflozin [Invokana] 300 mg PO DAILY 09/22/20 07/14/22 History Cholecalciferol [Vitamin D3 (25 25 mcg PO DAILY 09/22/20 07/14/22 History Mcg = 1000 Iu)] lisinopriL [Zestril] 10 mg PO DAILY 09/22/20 07/14/22 History Apixaban [Eliquis] 5 mg PO BID 08/24/21 07/14/22 History predniSONE 5 mg PO DAILY 08/24/21 07/14/22 History Cyanocobalamin (Vitamin B-12) 5,000 mcg PO DAILY 05/07/22 07/14/22 History [Vitamin B-12] Gabapentin 600 mg PO HS 05/07/22 07/14/22 History Albuterol Sulfate [Albuterol 1 - 2 puff PO RT-Q4H PRN 07/14/22 07/14/22 History Sulfate Hfa] Fluticasone/Vilanterol [Breo 1 puff INHALATION RT-DAILY 07/14/22 07/14/22 History Ellipta 100-25 Mcg Inhaler] Gabapentin [Neurontin] 300 mg PO DAILY 07/14/22 07/14/22 History Allergies Allergy/AdvReac Type Severity Reaction Status Date / Time azithromycin [From Zithromax] AdvReac Nausea & Verified 07/14/22 20:41 Vomiting Physical Exam Vitals: Vital Signs Temp Pulse Pulse Resp BP BP Pulse Ox 07/15/22 10:09 65 16 07/15/22 08:44 68 07/15/22 08:33 68 07/15/22 08:00 65 16 07/15/22 06:46 97.6 F 65 16 124/79 93 L 07/15/22 02:00 97.9 F 61 18 104/64 95 07/14/22 17:25 97.7 F 85 18 121/74 95 Intake and Output 07/14/22 07/15/22 07/15/22 22:59 06:59 14:59 Intake Total 118 Balance 118 Intake: Oral 118 Other: Voiding Method Toilet # Voids 2 Weight 142.882 kg 142.882 kg GENERAL EXAM: Alert, pleasant, morbidly obese 76-year-old male patient, on room air, fairly comfortable in no apparent distress. HEAD: Normocephalic. EYES: Normal reaction of pupils, equal size. NOSE: Clear with pink turbinates. THROAT: No erythema or exudates. NECK: No masses, no JVD. CHEST: No chest wall deformity. LUNGS: Equal air entry with no crackles, wheeze, rhonchi or dullness. CVS: S1 and S2 normal with an audible murmur, irregular rhythm. ABDOMEN: No hepatosplenomegaly, normal bowel sounds, no guarding or rigidity. SPINE: No scoliosis or deformity SKIN: No rashes CENTRAL NERVOUS SYSTEM: No focal deficits, tone is normal in all 4 extremities. EXTREMITIES: Changes of chronic venous stasis. There is no peripheral edema. No clubbing, no cyanosis. Peripheral pulses are intact. Results - Laboratory Findings CBC and BMP: 07/14/22 20:27 07/14/22 20:27 PT/INR, D-dimer PT 10.6 sec (9.0-12.0) 07/14/22 20:27 INR 1.0 (<1.2) 07/14/22 20:27 D-Dimer <0.17 mg/L FEU (<0.60) 07/14/22 20:27 Abnormal lab findings: Abnormal Labs 07/14/22 07/14/22 07/14/22 20:27 20:27 23:40 Plt Count 139 L Chloride 108 H Glucose 110 H POC Glucose (mg/dL) 140 H Hemoglobin A1c 07/15/22 07/15/22 02:58 06:08 Plt Count Chloride Glucose POC Glucose (mg/dL) 117 H Hemoglobin A1c 6.5 H - Diagnostic Findings Chest x-ray: image reviewed (No acute cardiopulmonary process) Assessment and Plan Assessment: Atypical chest pain and dyspnea on exertion of unclear etiology. Chest x-ray shows no acute pulmonary process. Acute coronary syndrome ruled out Atrial fibrillation, anticoagulated with Eliquis Morbid obesity Lifelong nonsmoker Coronary artery disease with previous coronary bypass grafting in 2019 History of mild aortic stenosis Hypertension Hyperlipidemia Diabetes mellitus, type II Benign prostatic hyperplasia History of hiatal hernia History of gastroesophageal reflux disease History of chronic venous stasis changes of the lower extremities Plan: The patient was seen and evaluated Chest x-ray, labs and medications reviewed Stable and on room air Obtain a high-resolution computed tomography scan of the chest Obtain a bedside pulmonary function test Echocardiogram is pending Continue bronchodilators for now though doubtful helpful Continue anticoagulation with Eliquis We will continue to follow and make further recommendations based on his clinical status I have personally seen and examined the patient, performed the documentation and the assessment and plan as written. Number of minutes spent on the visit: 20.
[2022-07-15 12:36] LABS: Glucose,Whole Blood 139 mg/dL (70-110)
--- NOTE | 2022-07-15 13:09 | CONS ---
CONSULTATION HISTORY OF PRESENT ILLNESS: This is a 76-year-old morbidly obese gentleman, who weighs over 350 pounds. He has a history of aortocoronary bypass surgery that was performed in 2019, with CHE to LAD, sequential graft off-pump bypass. He also developed some aortic stenosis and has been having shortness of breath. He also developed paroxysmal atrial fibrillation. His last visit in the office with me was in April when he was in sinus rhythm with hypertension, hyperlipidemia, and [id number]-[id number] aortic stenosis. However, he has been having chest pain for the last 1 week. He tried to do some outside work, and whenever he moves his upper body, he has pain in the chest, mostly in the intercostal area, and seems to be very musculoskeletal. In addition to this, he has progressively gotten more short of breath. He indicates his weight has not gone up. His main complaint is shortness of breath and musculoskeletal chest pain. Troponins are normal. BNP is normal. He is not in heart failure clinically. He does have some COPD-type picture. He is not a smoker, however. He has had previous history of some degenerative disease of the spine. At the time of my evaluation, he complains of musculoskeletal pain and shortness of breath with activity. PAST MEDICAL HISTORY: 1. CAD with prior bypass surgery, CHE to LAD and diagonal sequential off-pump bypass graft in 2019. 2. Obesity. 3. Hypertension. 4. Type 2 diabetes mellitus. 5. Hyperlipidemia. 6. Paroxysmal atrial fibrillation. The patient is in atrial fibrillation at this time. PAST SURGICAL HISTORY: He is status post some bowel resection, cholecystectomy, and also had some orthopedic surgery. MEDICATIONS AT HOME: Include: 1. Eliquis 5 mg b.i.d. 2. Lipitor 40 mg daily. 3. Gabapentin. 4. Metformin b.i.d. 5. Invokana. 6. Flomax. 7. Metoprolol succinate 50 mg b.i.d. 8. Also, vitamin supplements. 9. He takes lisinopril 10 mg daily and Flomax 0.4 mg daily. PHYSICAL EXAMINATION: VITAL SIGNS: Blood pressure is 128/70. Pulse rate is 64 per minute, irregular. HEENT: Unremarkable. Fundus was not examined by me. NECK: Supple. There is JVD of 1 cm. No carotid bruit. HEART: Reveals S1 and S2 with ejection systolic murmur at the base. Second heart sound is fairly well preserved. LUNGS: Reveal decent air entry. No rales. ABDOMEN: Soft and nontender. EXTREMITIES: Lower extremities reveal bilateral trace edema. Diminished pulses. CENTRAL NERVOUS SYSTEM: Grossly within normal limits. IMPRESSION: 1. Shortness of breath. 2. Moderate aortic stenosis. 3. The patient is in atrial fibrillation with rate controlled. 4. History of coronary artery disease with prior bypass surgery. 5. Probable chronic obstructive pulmonary disease-like picture on the chest x-ray without history of smoking. 6. Type 2 diabetes mellitus. 7. Hyperlipidemia. 8. Hypertension. RECOMMENDATIONS: I will obtain echocardiogram to assess the status of aortic valve. The murmur seems more prominent. We will also seek input from Dr. Alcaraz. The patient has been consistent with his anticoagulation. I will consider electrical cardioversion in the morning. Discussed my thoughts in detail with the patient. Success rate for electrical cardioversion is somewhat low in this patient, and he is aware of this. MMODL / IJN: [id number] /
[2022-07-15] MEDS: SODIUM CHLORIDE 0.9% 1,000 ML IV SCH (13:16)
--- NOTE | 2022-07-15 13:57 | P.HPIM ---
History of Present Illness H&P Date: 07/15/22 This is a 76 year old male with medical history of coronary bypass 2 vessel in 2019, atrial fibrillation, TIA, diabetes mellitus, GERD, hypertension, hyperlipidemia, Obesity, covid in 2020. Patient presents with history of intermittent chest pressure midsternal describes as sharp stabbing in nature and other times reports as pressure like sensation. Happens at rest and worse with activity, he also reports chest pain worsening with deep inspiration. Denies fever/chills. He states he became so short of breath he decided to come in for evaluation. He has had frequent hospitalizations since his open heart for the same and states it is usually attributed as musculoskeletal. Initial work up reveals no white count, D-Dimer is less than 0.17. Electrolytes are normal. A1C is 6.5. Troponin level is negative x 3, proBNP 391. Chest xray is showing pulmonary vascular congestion with superimposed COPD. He does have lower extremity edema. He is admitted for chest pain and cardiology/pulmonary consul tation in place. REVIEW OF SYSTEMS: CONSTITUTIONAL: No fever, no malaise, no fatigue. HEENT: No recent visual problems or hearing problems. Denied any sore throat. CARDIOVASCULAR: Reports chest pain, orthopnea, PND, no palpitations, no syncope. PULMONARY: Reports shortness of breath, no cough, no hemoptysis. GASTROINTESTINAL: No diarrhea, no nausea, no vomiting, no abdominal pain. NEUROLOGICAL: No headaches, no weakness, no numbness. HEMATOLOGICAL: Denies any bleeding or petechiae. GENITOURINARY: Denies any burning micturition, frequency, or urgency. MUSCULOSKELETAL/RHEUMATOLOGICAL: Denies any joint pain, swelling, or any muscle pain. ENDOCRINE: Denies any polyuria or polydipsia. The rest of the 14-point review of systems is negative. PHYSICAL EXAMINATION: GENERAL: The patient is alert and oriented x3, not in any acute distress. Well developed, well nourished. HEENT: Pupils are round and equally reacting to light. EOMI. No scleral icterus. No conjunctival pallor. Normocephalic, atraumatic. No pharyngeal erythema. No thyromegaly. CARDIOVASCULAR: S1 and S2 present. No murmurs, rubs, or gallops. Systolic murmur. PULMONARY: Chest is clear to auscultation, no wheezing or crackles. ABDOMEN: Soft, nontender, nondistended, normoactive bowel sounds. No palpable organomegaly. MUSCULOSKELETAL: No joint swelling or deformity. EXTREMITIES: No cyanosis, clubbing, or pedal edema. NEUROLOGICAL: Gross neurological examination did not reveal any focal deficits. SKIN: No rashes. Assessment and Plan Assessment Dyspnea Chest pain Moderate aortic stenosis Paroxysmal Atrial fibrillation Diabetes mellitus type 2 Coronary artery disease with coronary artery bypass 2 vessel in 2019 Hypertension Hyperlipidemia History of TIA Pernicious Anemia monthly injections History of BPH Osteoarthritis maintained on prednisone daily Morbid Obesity GI prophylaxis DVT prophylaxis anticoagulated with eliquis Full Code Plan Cardiology planning on cardioversion Continue same home medications Echocardiogram pending Pulmonary consultation Further recommendations forthcoming The impression and plan of care has been dictated by Nurse Sheree Pr actitioner as directed. Dr. Zunilda MD I have performed a history and physical examination and medical decision making of this patient, discussed the same with the dictator, and agree with the dicta tors assessment and plan as written, documented as a scribe. Based on total visit time, I have performed more than 50% of this visit. Past Medical History Past Medical History: Atrial Fibrillation, Blood Disorder, Coronary Artery Disease (CAD), Cancer, CVA/TIA, Diabetes Mellitus, GERD/Reflux, Hyperlipidemia, Hypertension, Osteoarthritis (OA), Prostate Disorder, Vascular Disorder Additional Past Medical History / Comment(s): Hx skin cancer, post CABG A fib, TIA years ago, pernicious anemia with monthly injections, hiatal hernia, BPH, venous insufficiency, occasional lower leg/pedal edema, spinal stenosis, herniated disc L1, spinal cyst, chronic low back pain, rare neck pain, benign colon polyp, hx Covid 06/2019. History of Any Multi-Drug Resistant Organisms: None Reported Past Surgical History: Bowel Resection, Cholecystectomy, Coronary Bypass/CABG, Heart Catheterization, Hernia Repair, Joint Replacement Additional Past Surgical History / Comment(s): 10/2018 CABG 2 vessels, bilateral knee replacements, right done twice, bowel resection at age 12 yrs d/t obstruction, umbilical hernia repair, skin cancer removed from 3 spots, colono scopy, back injections, bilateral cataract removals with lens implants. Past Anesthesia/Blood Transfusion Reactions: No Reported Reaction Past Psychological History: No Psychological Hx Reported Additional Psychological History / Comment(s): Pt resides with his spouse. Pt has had increased stress d/t spouse going thru health problems. He is independent. He has a glucometer. 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 Past Drug Use History: None Reported - Past Family History Father Family Medical History: Congestive Heart Failure (CHF), CVA/TIA Additional Family Medical History / Comment(s): at age 68. Brother(s) Family Medical History: Cancer, COPD, Diabetes Mellitus Additional Family Medical History / Comment(s): Heart problems. Mother Family Medical History: Myocardial Infarction (PR) Additional Family Medical History / Comment(s): at 79 w/ PR. Medications and Allergies Home Medications Medication Instructions Recorded Confirmed Type Multivitamin [Men's Multi-Vitamin] 1 tab PO DAILY 04/01/15 07/14/22 History Tamsulosin HCl [Flomax] 0.4 mg PO DAILY 10/09/18 07/14/22 History Metoprolol Succinate (ER) [Toprol 50 mg PO BID 12/20/18 07/14/22 History XL] Pantoprazole [Protonix] 40 mg PO HS 12/20/18 07/14/22 History metFORMIN HCL 500 mg PO BID 12/20/18 07/14/22 History Atorvastatin [Lipitor] 40 mg PO HS 09/22/20 07/14/22 History Canagliflozin [Invokana] 300 mg PO DAILY 09/22/20 07/14/22 History Cholecalciferol [Vitamin D3 (25 25 mcg PO DAILY 09/22/20 07/14/22 History Mcg = 1000 Iu)] lisinopriL [Zestril] 10 mg PO DAILY 09/22/20 07/14/22 History Apixaban [Eliquis] 5 mg PO BID 08/24/21 07/14/22 History predniSONE 5 mg PO DAILY 08/24/21 07/14/22 History Cyanocobalamin (Vitamin B-12) 5,000 mcg PO DAILY 05/07/22 07/14/22 History [Vitamin B-12] Gabapentin 600 mg PO HS 05/07/22 07/14/22 History Albuterol Sulfate [Albuterol 1 - 2 puff PO RT-Q4H PRN 07/14/22 07/14/22 History Sulfate Hfa] Fluticasone/Vilanterol [Breo 1 puff INHALATION RT-DAILY 07/14/22 07/14/22 Hi story Ellipta 100-25 Mcg Inhaler] Gabapentin [Neurontin] 300 mg PO DAILY 07/14/22 07/14/22 History Allergies Allergy/AdvReac Type Severity Reaction Status Date / Time azithromycin [From Zithromax] AdvReac Nausea & Verified 07/14/22 20:41 Vomiting Physical Exam Vitals: Vital Signs Temp Pulse Pulse Resp BP BP Pulse Ox 07/15/22 08:44 68 07/15/22 08:33 68 07/15/22 06:46 97.6 F 65 16 124/79 93 L 07/15/22 02:00 97.9 F 61 18 104/64 95 07/14/22 17:25 97.7 F 85 18 121/74 95 Intake and Output 07/14/22 07/15/22 07/15/22 22:59 06:59 14:59 Other: # Voids 2 Weight 142.882 kg 142.882 kg Results CBC & Chem 7: 07/14/22 20:27 07/14/22 20:27 Labs: Abnormal Lab Results - Last 24 Hours (Table) 07/14/22 07/14/22 07/14/22 Range/Units 20:27 20:27 23:40 Plt Count 139 L (150-450) k/uL Chloride 108 H (98-107) mmol/L Glucose 110 H (74-99) mg/dL POC Glucose (mg/dL) 140 H (70-110) mg/dL 07/15/22 Range/Units 06:08 Plt Count (150-450) k/uL Chloride (98-107) mmol/L Glucose (74-99) mg/dL POC Glucose (mg/dL) 117 H (70-110) mg/dL Assessment and Plan Time with Patient: Greater than 30
--- NOTE | 2022-07-15 14:50 | CT ---
EXAMINATION TYPE: CT chest wo con DATE OF EXAM: 07/15/2022 COMPARISON: 05/07/2022 HISTORY: Chest pain and dyspnea CT DLP: 1913.1 mGycm, Automated exposure control for dose reduction was used. CONTRAST: None TECHNIQUE: Axial images were obtained at 1 mm thick sections at 10 mm intervals. This will limit po rtions of the examination which may not be visualized within the [id number]. Images were obtained in the prone and supine views. FINDINGS: Portion of the thyroid visualized is normal. There is a density within the periphery of th e left lung measuring 2.7 x 4.4 cm. Series 9 image 21. This is slightly more prominent than the ricarda rison study of 05/07/2022. However, there was some streak opacity at this level on the prior exam No enlarged mediastinal or hilar adenopathy is evident. The ascending aorta diameter at the level o f the main pulmonary artery is 0.2 cm. The main pulmonary artery diameter at the bifurcation is 3.[address] sections are obtained through the upper abdomen. Abdomen is essentially unremarkable. IMPRESSIONS: 1. Infiltrate or mass in the left lung base. Follow-up is recommended.
[2022-07-15 17:32] LABS: Glucose,Whole Blood 129 mg/dL (70-110)
[2022-07-15 20:28] LABS: Glucose,Whole Blood 200 mg/dL (70-110)
[2022-07-15] MEDS: PANTOPRAZOLE 40 MG TABLET PO SCH (20:29)
[2022-07-15] MEDS: ATORVASTATIN 40 MG TAB PO SCH (20:29)
[2022-07-16 06:16] LABS: Glucose,Whole Blood 115 mg/dL (70-110)
[2022-07-16] MEDS: INSULIN ASPART (NovoLOG) 100 UNIT/ML VIAL SQ SCH ×4 (06:16→21:52)
[2022-07-16] MEDS: METOPROLOL SUCCINATE (ER) 50 MG TAB.ER.24H PO SCH ×2 (08:46→20:52)
[2022-07-16] MEDS: TAMSULOSIN 0.4 MG CAP.ER.24H PO SCH (08:46)
[2022-07-16] MEDS: MULTIVITAMINS, THERA 1 EACH TAB PO SCH (08:46)
[2022-07-16] MEDS: GABAPENTIN 300 MG CAP PO SCH ×2 (08:46→20:52)
[2022-07-16] MEDS: CHOLECALCIFEROL 25 MCG (1000 IU) TABLET PO SCH (08:46)
[2022-07-16] MEDS: predniSONE 5 MG TAB PO SCH (08:46)
[2022-07-16] MEDS: APIXABAN 5 MG TAB PO SCH ×2 (08:46→20:52)
[2022-07-16] MEDS: CYANOCOBALAMIN 500 MCG TAB PO SCH (08:46)
[2022-07-16] MEDS ORDERED: IV FLUID CONTINUATION 1,000 ML IV ONE ×2 (09:45)
[2022-07-16] MEDS: SYMBICORT 80-4.5 MCG INHALER INHALATION SCH ×2 (10:05→18:29)
[2022-07-16] MEDS ORDERED: PROPOFOL 10 MG/ML 20 ML VIAL IV ONE (10:15)
--- NOTE | 2022-07-16 11:04 | PN ---
PROGRESS NOTE SUBJECTIVE: Mr. Pimentel is a gentleman with a CAD, prior bypass surgery, moderate aortic stenosis, and paroxysmal atrial fibrillation. He came into the hospital with shortness of breath, was in atrial fib, rate was fairly well controlled. This morning, he remains in atrial fib, rate is about 110. I am recommending electrical cardioversion that will be performed today. I spoke to the patient, explained the rationale, risks, benefits, options, and I also talked to the by phone. OBJECTIVE: VITAL SIGNS: Stable. NECK: JVD 1 cm. No carotid bruit. Ejection systolic murmur at the base is audible. LUNGS: Revealed decent air entry. ABDOMEN: Soft. EXTREMITIES: Lower extremities revealed diminished pulses. CENTRAL NERVOUS SYSTEM: Normal. PLAN: Plan for electrical cardioversion today. MMODL / IJN: [id number] /
--- NOTE | 2022-07-16 11:27 | CE ---
CARDIAC ELECTROPHYSIOLOGY REPORT PROCEDURE PERFORMED: Electrical cardioversion. INDICATION: Persistent atrial fibrillation with shortness of breath. CLINICAL INFORMATION: Mr. Pimentel is a 76-year-old morbidly obese gentleman with history of hypertension, hyperlipidemia, and aortic stenosis, moderate with previous bypass surgery. He also has history of type 2 diabetes mellitus as well. He came in with atrial fibrillation, was short of breath. He has been on Eliquis without interruption for a long time. I advised electrical cardioversion and brought him for the procedure. PROCEDURE NOTE: Under the influence of [id number] intravenous anesthetic agent with the attendance of the anesthesiologist, a single shock of 200 joules was delivered with anterior and posterior patches. The patient had a run of what seemed to be atrial tachycardia, then converted to sinus rhythm, remained hemodynamically stable and neurologically intact. This was a successful electrical cardioversion. Details were discussed with the patient as well as his . I expect he will be discharged tomorrow. MMKIARAL / IJN: [id number] /
--- NOTE | 2022-07-16 11:34 | CA ---
Transthoracic Echo Report Name: Alirio Pimentel Age: 76 Gender: M : 1945 Exam Date: 07/15/2022 11:28 Exam Location: [facility] Ht (in): 72 Wt (lb): 315 Ordering Physician: Isabel Graf Attending/Referring Phys: [id number], Lesia Associate Veterinarian Chinyere Kim RDCS Procedure CPT: Indications: AV Cardiac Hx: Technical Quality: Technically difficult study Contrast 1: Lumason Total Dose (mL): 5 Contrast 2: Total Dose (mL): MEASUREMENTS (Male / Female) Normal Values 2D ECHO LV Diastolic Diameter PLAX 5.2 cm 4.2 - 5.9 / 3.9 - 5.3 cm LV Systolic Diameter PLAX 3.6 cm IVS Diastolic Thickness 1.6 cm 0.6 - 1.0 / 0.6 - 0.9 cm LVPW Diastolic Thickness 1.6 cm 0.6 - 1.0 / 0.6 - 0.9 cm LV Relative Wall Thickness 0.6 LVOT Diameter 2.0 cm M-MODE Aortic Root Diameter MM 3.9 cm LA Systolic Diameter MM 1.6 cm LA Ao Ratio MM 0.4 AV Cusp Separation MM 5.3 cm DOPPLER AV Peak Velocity 384.5 cm/s AV Peak Gradient 59.1 mmHg AV Mean Velocity 258.1 cm/s AV Mean Gradient 34.8 mmHg AV Velocity Time Integral 71.8 cm LVOT Peak Velocity 104.9 cm/s LVOT Peak Gradient 4.4 mmHg LVOT Velocity Time Integral 23.9 cm LVOT Stroke Volume 76.0 cm??? LVOT Stroke Volume Index 29.4 ml/m??? LVOT Cardiac Index 2478.7 cm???/min???m??? AV Area Cont Eq vti 1.1 cm??? AV Area Cont Eq pk 0.9 cm??? TR Peak Velocity 273.8 cm/s TR Peak Gradient 30.0 mmHg Right Ventricular Systolic Press 40.0 mmHg FINDINGS Left Ventricle Moderately increased left ventricular wall thickness. Left ventricular cavity size normal. Normal left ventricular systolic function with no obvious regional wall motion abnormalities. Left ventricular ejection fraction is estimated at 55-60 %. Right Ventricle Normal right ventricular size and function. Mild pulmonary hypertension. Right Atrium Normal right atrial size. Left Atrium Normal left atrial size. Mitral Valve Structurally normal mitral valve. Mild mitral annular calcification. Aortic Valve No aortic regurgitation. Moderate aortic stenosis with a peak gradient of 50 mmHg and a mean gradient of 35 mmHg. Tricuspid Valve Mild tricuspid regurgitation. Pulmonic Valve Pulmonic valve not well visualized. Pericardium No pericardial effusion. Aorta Normal size aortic root and proximal ascending aorta. CONCLUSIONS Poor quality study normal LV systolic function mitral calcification noted. Moderate aortic stenosis with a mean gradient of nearly 25-30 mmHg. Mild pulmonary hypertension. No pericardial effusion Previewed by: Dr. Sean Sprague MD (Electronically Signed) Final Date: 16 July 2022 11:33
[2022-07-16 12:10] LABS: Glucose,Whole Blood 115 mg/dL (70-110)
--- NOTE | 2022-07-16 12:17 | P.PN ---
Subjective Progress Note Date: 07/16/22 This is a pleasant morbidly obese 76-year-old male patient with a known history of coronary artery disease with previous coronary artery bypass surgery in 2019, hypertension, hyperlipidemia, diabetes mellitus, Hiatal hernia, gastroesophageal reflux disease, BPH, venous insufficiency with chronic changes lower extremities, Pernicious anemia, atrial fibrillation anticoagulated with Eliquis. He is a lifelong nonsmoker. He states he has had several investigations for chest pain in the past and had been told it is musculoskeletal pain. Last Wednesday he developed chest pain again while working and could only work for about 5 minutes and rest for 15 minutes. Along with this he was also having some shortness of breath. He has also recently at the [facility] and was unable to come climb a flight of stairs due to shortness of breath and chest pain. He presented here to the emergency room for the same yesterday. Chest x- ray shows cardiomegaly with no evidence of pleural effusion, focal consolidation or pneumothorax. White count 8.1. Hemoglobin 14.4. Platelets 139. Sodium 141. Potassium 4.2. Bicarb 25. BUN 17. Creatinine 1.09. Glucose 110. AST 20. ALT 27. Troponins are negative 3. ProBNP 391. D-dimer negative at less than 0.17. He is seen today in consultation on the regular medical floor. Currently sitting up in bed. Awake and alert in no acute distress. Maintaining good O2 saturations in the 90s on room air. Denies any fever or chills. No cough or congestion. No phlegm production. He was recently initiated on Prelone and albuterol per his PCP without change in his symptoms. Again lifelong nonsmoker. No history of asthma. He does take 5 mg of prednisone daily for arthritic pain in his hands. The patient is seen 07/16/2022 in follow-up on the regular medical floor. He is currently up ambulating in his room. Awake and alert in no acute distress. Maintaining good O2 saturations in the 90s on room air. He's afebrile. Hemodynamically stable. Bedside pulmonary function tests revealed restrictive lung disease mostly related to his obesity and deconditioning. He does remain in atrial fibrillation and the plan is for cardioversion today which will hopefully improve his dyspnea on exertion. He remains on Eliquis. CAT scan did find a 2.7 x 4.4 cm peripheral left lung lesion most likely scarring. Echo cardiogram was of poor quality with normal LV function and mitral calcification noted. Moderate aortic stenosis with a mean gradient of nearly 25-30 mmHg. Mild pulmonary hypertension. Objective - Vital Signs Vital signs: Vital Signs Temp 97.3 F L 07/16/22 06:51 Pulse 63 07/16/22 10:53 Resp 16 07/16/22 10:53 BP 112/62 07/16/22 10:53 Pulse Ox 93 L 07/16/22 10:53 FiO2 Intake & Output 07/15/22 07/16/22 07/16/22 18:59 06:59 18:59 Intake Total 236 100 Balance 236 100 Intake: IV 100 Oral 236 Other: Voiding Method Toilet Toilet # Voids 1 2 - Exam GENERAL EXAM: Alert, morbidly obese 76-year-old male patient, on room air, comfortable in no apparent distress. HEAD: Normocephalic. EYES: Normal reaction of pupils, equal size. NOSE: Clear with pink turbinates. THROAT: No erythema or exudates. NECK: No masses, no JVD. CHEST: No chest wall deformity. LUNGS: Equal air entry with no crackles, wheeze, rhonchi or dullness. CVS: S1 and S2 normal with an audible murmur, irregular rhythm. ABDOMEN: No hepatosplenomegaly, normal bowel sounds, no guarding or rigidity. SPINE: No scoliosis or deformity SKIN: No rashes CENTRAL NERVOUS SYSTEM: No focal deficits, tone is normal in all 4 extremities. EXTREMITIES: Changes of chronic venous stasis. There is no peripheral edema. No clubbing, no cyanosis. Peripheral pulses are intact. - Labs CBC & Chem 7: 07/14/22 20:27 07/14/22 20:27 Labs: Abnormal Lab Results - Last 24 Hours (Table) 07/15/22 07/15/22 07/15/22 Range/Units 12:33 17:31 20:26 POC Glucose (mg/dL) 139 H 129 H 200 H (70-110) mg/dL 07/16/22 Range/Units 06:15 POC Glucose (mg/dL) 115 H (70-110) mg/dL Assessment and Plan Assessment: Atypical chest pain and dyspnea on exertion of unclear etiology. Chest x-ray shows no acute pulmonary process. Acute coronary syndrome ruled out. High- resolution computed tomography scan of the chest revealed no acute pulmonary process. There was a noted density within the periphery of the left lung measuring 2.7 x 4.4 cm. Most likely scarring but will be followed up in the outpatient setting. Bedside spirometry revealed evidence of restrictive lung disease secondary to obesity. Echocardiogram was of poor quality but with normal LV function and mitral calcification noted. Moderate aortic stenosis with a mean gradient of nearly 25-30 mmHg. Mild pulmonary hypertension. Atrial fibrillation, anticoagulated with Eliquis, plan is for cardioversion today Moderate aortic stenosis Morbid obesity Lifelong nonsmoker Coronary artery disease with previous coronary bypass grafting in 2019 History of mild aortic stenosis Hypertension Hyperlipidemia Diabetes mellitus, type II Benign prostatic hyperplasia History of hiatal hernia History of gastroesophageal reflux disease History of chronic venous stasis changes of the lower extremities Plan: The patient was seen and evaluated Computed tomography scan, echocardiogram, labs and medications reviewed Bedside spirometry revealed some restrictive lung disease most likely secondary to obesity Continue bronchodilators for now though doubtful helpful Continue anticoagulation with Eliquis Plan is for cardioversion today Cleared for discharge from the pulmonary standpoint Follow-up in our office for full PFT and outpatient follow-up CT scans The patient verbalizes understanding and is agreeable to the plan I have personally seen and examined the patient, performed the documentation and the assessment and plan as written. Number of minutes spent on the visit: 10.
--- NOTE | 2022-07-16 14:38 | P.PN ---
Subjective Progress Note Date: 07/16/22 This is a 76 year old male with medical history of coronary bypass 2 vessel in 2019, atrial fibrillation, TIA, diabetes mellitus, GERD, hypertension, hyperlipidemia, Obesity, covid in 2020. Patient presents with history of intermittent chest pressure midsternal describes as sharp stabbing in nature and other times reports as pressure like sensation. Happens at rest and worse with activity, he also reports chest pain worsening with deep inspiration. Denies fever/chills. He states he became so short of breath he decided to come in for evaluation. He has had frequent hospitalizations since his open heart for the same and states it is usually attributed as musculoskeletal. Initial work up reveals no white count, D-Dimer is less than 0.17. Electrolytes are normal. A1C is 6.5. Troponin level is negative x 3, proBNP 391. Chest xray is showing pulmonary vascular congestion with superimposed COPD. He does have lower extremity edema. He is admitted for chest pain and cardiology/pulmonary consultation in place. 07/16/2022 Patient evaluated on the medical floor today status post cardioversion and c urrently maintaining sinus rhythm. He had a high contrast lung CT scan yesterday showing infiltrate or mass in the left lung base measuring 2.7 x 4.4 cm most likely from scarring. Echocardiogram is showing normal LV systolic function with moderate aortic stenosis with mean gradient of nearly 25-30 mmHg. Mild pulmonary hypertension. No pericardial effusion. This was a poor quality study. He is main taining oxygen saturation on room air currently 93%. He remains afebrile, heart rate of 63. He continues to report chest discomfort mostly described as achy over the left chest. He doesn't feel ready ready to be discharged home. Review of Systems Constitutional: Reports fatigue denied any fever. Cardio vascular: Reports achy left sided chest pain, palpitations Gastrointestinal: denied any nausea, vomiting, diarrhea Pulmonary: Reports shortness of breath, no cough Neurologic denied any new focal deficits All inpatient medications were reviewed and appropriate changes in these medications as dictated in the interval history and assessment and plan. PHYSICAL EXAMINATION: GENERAL: The patient is alert and oriented x3, not in any acute distress. Well developed, well nourished. HEENT: Pupils are round and equally reacting to light. EOMI. No scleral icterus. No conjunctival pallor. Normocephalic, atraumatic. No pharyngeal erythema. No thyromegaly. CARDIOVASCULAR: S1 and S2 present. No murmurs, rubs, or gallops. Systolic murmur. PULMONARY: Chest is clear to auscultation, no wheezing or crackles. ABDOMEN: Soft, nontender, nondistended, normoactive bowel sounds. No palpable organomegaly. MUSCULOSKELETAL: No joint swelling or deformity. EXTREMITIES: No cyanosis, clubbing, or pedal edema. NEUROLOGICAL: Gross neurological examination did not reveal any focal deficits. SKIN: No rashes. Assessment and Plan Assessment Dyspnea likely combination of restrictive lung disease, deconditioning, and arrhythmia Chest pain Moderate aortic stenosis Mild pulmonary hypertension Paroxysmal Atrial fibrillation s/p cardioversion currently in normal sinus rhythm after Diabetes mellitus type 2 Coronary artery disease with coronary artery bypass 2 vessel in 2019 Hypertension Hyperlipidemia History of TIA Pernicious Anemia monthly injections History of BPH Osteoarthritis maintained on prednisone daily Morbid Obesity and deconditioning GI prophylaxis DVT prophylaxis anticoagulated with eliquis Full Code Plan S/P cardioversion and recommend to continue telemetry monitoring Discussed weight loss measures and patient may benefit from outpatient cardiac rehabiliation/outpatient physical therapy Patient educated on diet changes including low sodium/heart healthy options Pulmonary and cardiology following Possible D/C in the next 24 hours when cleared by consultations The impression and plan of care has been dictated by Kyra Cardenas Nurse Practitioner as directed. Dr. Zunilda MD I have performed a history and physical examination and medical decision making of this patient, discussed the same with the dictator, and agree with the dictators assessment and plan as written, documented as a scribe. Based on total visit time, I have performed more than 50% of this visit. Objective - Vital Signs Vital signs: Vital Signs Temp 97.3 F L 07/16/22 06:51 Pulse 63 07/16/22 10:53 Resp 16 07/16/22 10:53 BP 112/62 07/16/22 10:53 Pulse Ox 93 L 07/16/22 10:53 FiO2 Intake & Output 07/15/22 07/16/22 07/16/22 18:59 06:59 18:59 Intake Total 236 100 Balance 236 100 Intake: IV 100 Oral 236 Other: Voiding Method Toilet Toilet # Voids 1 2 - Labs CBC & Chem 7: 07/14/22 20:27 07/14/22 20:27 Labs: Abnormal Lab Results - Last 24 Hours (Table) 07/15/22 07/15/22 07/15/22 Range/Units 12:33 17:31 20:26 POC Glucose (mg/dL) 139 H 129 H 200 H (70-110) mg/dL 07/16/22 07/16/22 Range/Units 06:15 12:08 POC Glucose (mg/dL) 115 H 115 H (70-110) mg/dL Assessment and Plan Time with Patient: Less than 30
[2022-07-16 17:07] LABS: Glucose,Whole Blood 142 mg/dL (70-110)
[2022-07-16] MEDS: SODIUM CHLORIDE 0.9% 1,000 ML IV SCH (17:11)
[2022-07-16] MEDS: PANTOPRAZOLE 40 MG TABLET PO SCH (20:52)
[2022-07-16] MEDS: ATORVASTATIN 40 MG TAB PO SCH (20:52)
[2022-07-16 21:42] LABS: Glucose,Whole Blood 121 mg/dL (70-110)
[2022-07-17 04:57] VITALS: PULSE 60
[2022-07-17 06:22] LABS: Glucose,Whole Blood 121 mg/dL (70-110)
[2022-07-17] MEDS: INSULIN ASPART (NovoLOG) 100 UNIT/ML VIAL SQ SCH (06:22)
[2022-07-17 06:35] VITALS: BP 125/78; RESP 18; TEMP 97.8
[2022-07-17] MEDS: SYMBICORT 80-4.5 MCG INHALER INHALATION SCH (08:14)
--- NOTE | 2022-07-17 08:30 | P.PN ---
Subjective Progress Note Date: 07/17/22 History of present illness: This is a 76-year-old male with past medical history coronary artery disease w ith prior bypass surgery, moderate aortic stenosis, paroxysmal atrial fibrillation. Patient came in with shortness of breath was found to be in atrial fibrillation with rate fairly well controlled. He continued to have atrial fibrillation after 24 hours and electrocardioversion was recommended. T his was performed yesterday and patient is currently in a sinus rhythm. He denies having chest pain or shortness of breath. He's been ambulatory with no lightheadedness or dizziness. Physical examination: Gen: This is a 76 year old morbidly obese male VS: reviewed HEENT: Head is atraumatic, normocephalic. Pupils equal, round. Sclerae is anicteric. LUNGS: Clear to auscultation. No wheezes or rhonchi. No intercostal retractions. HEART: Regular rate and rhythm. Systolic ejection murmur at the base. ABDOMEN: Soft No tenderness. EXTREMITIES: No pedal edema. Decrease pulses bilaterally Assessment: Paroxysmal atrial fibrillation Coronary artery disease Aortic stenosis Plan: Plan to continue patient's current cardiac medications and add amiodarone 200 mg daily Patient is cleared for discharge from cardiology may follow-up in the office on Wednesday or Wednesday of next week. Nurse practitioner note has been reviewed, I agree with documented findings and plan of care. Patient was seen and examined. Objective - Vital Signs Vital signs: Vital Signs Temp 97.8 F 07/17/22 06:33 Pulse 60 07/17/22 06:33 Resp 18 07/17/22 06:33 BP 125/78 07/17/22 06:33 Pulse Ox 94 L 07/17/22 06:33 FiO2 Intake & Output 07/16/22 07/17/22 07/17/22 18:59 06:59 18:59 Intake Total 336 Balance 336 Intake: IV 100 Oral 236 Other: Voiding Method Toilet # Voids 2 3 - Labs CBC & Chem 7: 07/14/22 20:27 07/14/22 20:27 Labs: Abnormal Lab Results - Last 24 Hours (Table) 07/16/22 07/16/22 07/16/22 Range/Units 12:08 17:06 21:41 POC Glucose (mg/dL) 115 H 142 H 121 H (70-110) mg/dL 07/17/22 Range/Units 06:21 POC Glucose (mg/dL) 121 H (70-110) mg/dL
[2022-07-17] MEDS: MULTIVITAMINS, THERA 1 EACH TAB PO SCH (08:34)
[2022-07-17] MEDS: APIXABAN 5 MG TAB PO SCH (08:34)
[2022-07-17] MEDS: CHOLECALCIFEROL 25 MCG (1000 IU) TABLET PO SCH (08:34)
[2022-07-17] MEDS: CYANOCOBALAMIN 500 MCG TAB PO SCH (08:34)
[2022-07-17] MEDS: predniSONE 5 MG TAB PO SCH (08:34)
[2022-07-17] MEDS: TAMSULOSIN 0.4 MG CAP.ER.24H PO SCH (08:34)
[2022-07-17] MEDS: METOPROLOL SUCCINATE (ER) 50 MG TAB.ER.24H PO SCH (08:34)
[2022-07-17] MEDS: GABAPENTIN 300 MG CAP PO SCH (08:35)
[2022-07-17] MEDS ORDERED: AMIODARONE 200 MG TAB PO SCH (09:00)
--- NOTE | 2022-07-17 12:01 | P.PN ---
Subjective Progress Note Date: 07/17/22 This is a pleasant morbidly obese 76-year-old male patient with a known history of coronary artery disease with previous coronary artery bypass surgery in 2019, hypertension, hyperlipidemia, diabetes mellitus, Hiatal hernia, gastroesophageal reflux disease, BPH, venous insufficiency with chronic changes lower extremities, Pernicious anemia, atrial fibrillation anticoagulated with Eliquis. He is a lifelong nonsmoker. He states he has had several investigations for chest pain in the past and had been told it is musculoskeletal pain. Last Wednesday he developed chest pain again while working and could only work for about 5 minutes and rest for 15 minutes. Along with this he was also having some shortness of breath. He has also recently at the [facility] and was unable to come climb a flight of stairs due to shortness of breath and chest pain. He presented here to the emergency room for the same yesterday. Chest x- ray shows cardiomegaly with no evidence of pleural effusion, focal consolidation or pneumothorax. White count 8.1. Hemoglobin 14.4. Platelets 139. Sodium 141. Potassium 4.2. Bicarb 25. BUN 17. Creatinine 1.09. Glucose 110. AST 20. ALT 27. Troponins are negative 3. ProBNP 391. D-dimer negative at less than 0.17. He is seen today in consultation on the regular medical floor. Currently sitting up in bed. Awake and alert in no acute distress. Maintaining good O2 saturations in the 90s on room air. Denies any fever or chills. No cough or congestion. No phlegm production. He was recently initiated on Prelone and albuterol per his PCP without change in his symptoms. Again lifelong nonsmoker. No history of asthma. He does take 5 mg of prednisone daily for arthritic pain in his hands. The patient is seen 07/16/2022 in follow-up on the regular medical floor. He is currently up ambulating in his room. Awake and alert in no acute distress. Maintaining good O2 saturations in the 90s on room air. He's afebrile. Hemodynamically stable. Bedside pulmonary function tests revealed restrictive lung disease mostly related to his obesity and deconditioning. He does remain in atrial fibrillation and the plan is for cardioversion today which will hopefully improve his dyspnea on exertion. He remains on Eliquis. CAT scan did find a 2.7 x 4.4 cm peripheral left lung lesion most likely scarring. Echo cardiogram was of poor quality with normal LV function and mitral calcification noted. Moderate aortic stenosis with a mean gradient of nearly 25-30 mmHg. Mild pulmonary hypertension. The patient is seen today 07/17/2022 in follow-up on the regular medical floor. He sitting up at the bedside. Awake and alert in no acute distress. He denies any worsening shortness of breath, cough or congestion. He did undergo cardioversion yesterday and is currently in sinus rhythm. No chest pain. No cough or congestion. Maintaining O2 saturations in the 90s on room air. Objective - Vital Signs Vital signs: Vital Signs Temp 97.8 F 07/17/22 06:33 Pulse 60 07/17/22 06:33 Resp 18 07/17/22 06:33 BP 125/78 07/17/22 06:33 Pulse Ox 94 L 07/17/22 06:33 FiO2 Intake & Output 07/16/22 07/17/22 07/17/22 18:59 06:59 18:59 Intake Total 336 118 Balance 336 118 Intake: IV 100 Oral 236 118 Other: Voiding Method Toilet # Voids 2 3 - Exam GENERAL EXAM: Alert, morbidly obese 76-year-old male patient, on room air, in no apparent distress. HEAD: Normocephalic. EYES: Normal reaction of pupils, equal size. NOSE: Clear with pink turbinates. THROAT: No erythema or exudates. NECK: No masses, no JVD. CHEST: No chest wall deformity. LUNGS: Equal air entry with no crackles, wheeze, rhonchi or dullness. CVS: S1 and S2 normal with an audible murmur, regular rhythm. ABDOMEN: No hepatosplenomegaly, normal bowel sounds, no guarding or rigidity. SPINE: No scoliosis or deformity SKIN: No rashes CENTRAL NERVOUS SYSTEM: No focal deficits, tone is normal in all 4 extremities. EXTREMITIES: Changes of chronic venous stasis. There is no peripheral edema. No clubbing, no cyanosis. Peripheral pulses are intact. - Labs CBC & Chem 7: 07/14/22 20:27 07/14/22 20:27 Labs: Abnormal Lab Results - Last 24 Hours (Table) 07/16/22 07/16/22 07/16/22 Range/Units 12:08 17:06 21:41 POC Glucose (mg/dL) 115 H 142 H 121 H (70-110) mg/dL 07/17/22 Range/Units 06:21 POC Glucose (mg/dL) 121 H (70-110) mg/dL Assessment and Plan Assessment: Atypical chest pain and dyspnea on exertion of unclear etiology. Chest x-ray shows no acute pulmonary process. Acute coronary syndrome ruled out. High- resolution computed tomography scan of the chest revealed no acute pulmonary process. There was a noted density within the periphery of the left lung mode uring 2.7 x 4.4 cm. Most likely scarring but will be followed up in the outpatient setting. Bedside spirometry revealed evidence of restrictive lung disease secondary to obesity. Echocardiogram was of poor quality but with normal LV function and mitral calcification noted. Moderate aortic stenosis with a mean gradient of nearly 25-30 mmHg. Mild pulmonary hypertension. Atrial fibrillation, anticoagulated with Eliquis, converted to sinus rhythm on 07/16/2022 Moderate aortic stenosis Morbid obesity Lifelong nonsmoker Coronary artery disease with previous coronary bypass grafting in 2019 History of mild aortic stenosis Hypertension Hyperlipidemia Diabetes mellitus, type II Benign prostatic hyperplasia History of hiatal hernia History of gastroesophageal reflux disease History of chronic venous stasis changes of the lower extremities Plan: The patient was seen and evaluated Medications reviewed Stable and on room air Continue anticoagulation with Eliquis Cleared for discharge from the pulmonary standpoint Follow-up in our office for full PFT and outpatient follow-up CT scans I have personally seen and examined the patient, performed the documentation and the assessment and plan as written. Number of minutes spent on the visit: 10.
--- NOTE | 2022-07-18 19:59 | P.DS ---
Providers Date of admission: 07/14/22 21:53 Expected date of discharge: 07/17/22 Attending physician: Damaris Parsons Consults: 07/14/22 21:51 Consult Physician Urgent Consulting Provider: [facility] Consult Reason/Comments: chest pain Do you want consulting provider notified?: Yes 07/15/22 09:07 Consult Physician Routine Consulting Provider: Michel Alcaraz Consult Reason/Comments: MINA, hx Do you want consulting provider notified?: Yes Primary care physician: Triny Black Hospital Course: Final diagnosis Dyspnea likely combination of restrictive lung disease, deconditioning, and arrhythmia Chest pain, ruled out ACS Moderate aortic stenosis Mild pulmonary hypertension Paroxysmal Atrial fibrillation s/p cardioversion currently in normal sinus rhythm Diabetes mellitus type 2 Coronary artery disease with coronary artery bypass 2 vessel in 2019 Hypertension Hyperlipidemia History of TIA Pernicious Anemia monthly injections History of BPH Osteoarthritis maintained on prednisone daily Morbid Obesity and deconditioning GI prophylaxis DVT prophylaxis anticoagulated with eliquis Full Code Discharge disposition Patient is being discharged in a stable condition with guarded prognosis to home. Patient will follow-up with Dr. Black in the outpatient setting upon discharge. Patient is to follow-up with cardiology this week and continue with medications as prescribed . Total time taken is greater than 35 minutes. Hospital course This is a 76-year-old male who was recently admitted with shortness of breath and chest pain with multiple comorbidities noted. Patient evaluated by cardiology and pulmonary underwent cardioversion and was monitored overnight. Patient has been cleared by consultations for discharge today with close outpatient follow-up. Patient to follow-up with pulmonary outpatient for further PFT testing. Patient will continue on current medication regimens as mentioned below. Patient also instructed to follow-up with primary care provider this week as well. Patient is feeling extremely well and reports he would like to go home. Currently no reports of chest pain, shortness of breath, or palpitations. Patient is afebrile. No reports of nausea or vomiting and patient is tolerating diet. Patient will be discharged home today. Guarded prognosis Physical exam: Gen: This is a 76-year-old male who is awake, alert and oriented 3, well- developed, well-nourished, obese HEENT: Head is atraumatic, normocephalic. Pupils equal, round. Sclerae is anicteric. NECK: Supple. No JVD. No lymphadenopathy. No thyromegaly. LUNGS: Diminished breath sounds bilaterally with some scattered rhonchi noted.. No intercostal retractions. HEART: S1, S2 are muffled ABDOMEN: Soft. Obese. Bowel sounds are present. No masses. No tenderness. EXTREMITIES: No pedal edema. No calf tenderness. NEUROLOGICAL: Patient is awake, alert and oriented x3. Cranial nerves 2 through 12 are grossly intact. Please refer to medication reconciliation sheet for a list of medications. The impression and plan of care has been dictated by Yaneth Metcalf, Nurse Practitioner as directed. Dr. Issa MD I have performed a history and examination and MDM of this patient, discussed the same with the dictator, and agree with the dictator's assessment and plan as written ,documented as a scribe. Based on total visit time, I have performed more than 50% of the visit. Patient Condition at Discharge: Fair Plan - Discharge Summary New Discharge Prescriptions: New Amiodarone [Cordarone] 200 mg PO DAILY #60 tab Continue Multivitamin [Men's Multi-Vitamin] 1 tab PO DAILY Tamsulosin HCl [Flomax] 0.4 mg PO DAILY metFORMIN HCL 500 mg PO BID Metoprolol Succinate (ER) [Toprol XL] 50 mg PO BID Pantoprazole [Protonix] 40 mg PO HS Canagliflozin [Invokana] 300 mg PO DAILY Atorvastatin [Lipitor] 40 mg PO HS Fluticasone/Vilanterol [Breo Ellipta 100-25 Mcg Inhaler] 1 puff INHALATION RT-DAILY Albuterol Sulfate [Albuterol Sulfate Hfa] 1 - 2 puff PO RT-Q4H PRN PRN Reason: Shortness Of Breath Cholecalciferol [Vitamin D3 (25 Mcg = 1000 Iu)] 25 mcg PO DAILY predniSONE 5 mg PO DAILY Apixaban [Eliquis] 5 mg PO BID Gabapentin 600 mg PO HS Cyanocobalamin (Vitamin B-12) [Vitamin B-12] 5,000 mcg PO DAILY Gabapentin [Neurontin] 300 mg PO DAILY Discontinued lisinopriL [Zestril] 10 mg PO DAILY Discharge Medication List Multivitamin [Men's Multi-Vitamin] 1 tab PO DAILY 04/01/15 [History] Tamsulosin HCl [Flomax] 0.4 mg PO DAILY 10/09/18 [History] Metoprolol Succinate (ER) [Toprol XL] 50 mg PO BID 12/20/18 [History] Pantoprazole [Protonix] 40 mg PO HS 12/20/18 [History] metFORMIN HCL 500 mg PO BID 12/20/18 [History] Atorvastatin [Lipitor] 40 mg PO HS 09/22/20 [History] Canagliflozin [Invokana] 300 mg PO DAILY 09/22/20 [History] Cholecalciferol [Vitamin D3 (25 Mcg = 1000 Iu)] 25 mcg PO DAILY 09/22/20 [History] Apixaban [Eliquis] 5 mg PO BID 08/24/21 [History] predniSONE 5 mg PO DAILY 08/24/21 [History] Cyanocobalamin (Vitamin B-12) [Vitamin B-12] 5,000 mcg PO DAILY 05/07/22 [History] Gabapentin 600 mg PO HS 05/07/22 [History] Albuterol Sulfate [Albuterol Sulfate Hfa] 1 - 2 puff PO RT-Q4H PRN 07/14/22 [History] Fluticasone/Vilanterol [Breo Ellipta 100-25 Mcg Inhaler] 1 puff INHALATION RT- DAILY 07/14/22 [History] Gabapentin [Neurontin] 300 mg PO DAILY 07/14/22 [History] Amiodarone [Cordarone] 200 mg PO DAILY #60 tab 07/17/22 [Rx] Follow up Appointment(s)/Referral(s): Michel Alcaraz MD [STAFF PHYSICIAN] - 07/31/22 9:30 am Sean Sprague MD [STAFF PHYSICIAN] - 07/22/22 3:30 pm (Follow up with Dr. NASIM Sprague as scheduled for you. ) Triyn Black DO [Primary Care Provider] - 1-2 days Patient Instructions/Handouts: Cardioversion (GEN) Activity/Diet/Wound Care/Special Instructions: Activity Limited until follow-up Follow-up with primary care provider on discharge follow-up with cardiology as discussed next week Wednesday or Wednesday Follow-up with pulmonary outpatient Continue heart healthy diabetic diet Discharge Disposition: HOME SELF-CARE
== END 2022-07-17 11:28 | disposition home or self-care (01) ==
LOC: EC 17:05 → 6NMEDSUR 21:53
PROVIDERS: ADMIT Hospitalist; ATTEND Hospitalist
DX: R06.02 Shortness of breath (principal); R06.00 Dyspnea, unspecified; R07.9 Chest pain, unspecified; I35.0 Nonrheumatic aortic (valve) stenosis; I27.20 Pulmonary hypertension, unspecified; I48.0 Paroxysmal atrial fibrillation; E11.9 Type 2 diabetes mellitus without complications; I25.10 Atherosclerotic heart disease of native coronary artery without angina pectoris; I10 Essential (primary) hypertension; Z86.16 Personal history of COVID-19; E78.5 Hyperlipidemia, unspecified; I69.30 Unspecified sequelae of cerebral infarction; D51.0 Vitamin B12 deficiency anemia due to intrinsic factor deficiency; N40.0 Benign prostatic hyperplasia without lower urinary tract symptoms; M19.90 Unspecified osteoarthritis, unspecified site; Z86.73 Personal history of transient ischemic attack (TIA), and cerebral infarction without residual deficits; E66.01 Morbid (severe) obesity due to excess calories; Z68.41 Body mass index [BMI] 40.0-44.9, adult; Z85.828 Personal history of other malignant neoplasm of skin; Z95.1 Presence of aortocoronary bypass graft; G89.29 Other chronic pain; M54.50 Low back pain, unspecified; Z96.653 Presence of artificial knee joint, bilateral; Z90.49 Acquired absence of other specified parts of digestive tract; Z80.9 Family history of malignant neoplasm, unspecified; Z83.3 Family history of diabetes mellitus; Z83.6 Family history of other diseases of the respiratory system; Z79.52 Long term (current) use of systemic steroids; Z79.84 Long term (current) use of oral hypoglycemic drugs; Z79.51 Long term (current) use of inhaled steroids; Z79.01 Long term (current) use of anticoagulants; Z79.899 Other long term (current) drug therapy; Z88.1 Allergy status to other antibiotic agents
CPT/HCPCS: 99285; 36415; 94640 ×4; 93005; 97162; 97165; 92960 ×2; 85379; 83880; 80053; 84484 ×2; 85025; 85610; 85730; 83036; 71046; 71250; G0378 ×4; C8929; J2704; J7512 ×3; Q9950; 93306

== ENCOUNTER 2022-08-24 13:18 | Emergency (ER) | payer MEDICARE, BC ==
[2022-08-24 13:26] VITALS: TEMP 97.9
[2022-08-24] MEDS ORDERED: SODIUM CHLORIDE 0.9% 1,000 ML IV STA (13:45)
--- NOTE | 2022-08-24 13:46 | ED ---
General Adult HPI - General Chief complaint: Weakness Stated complaint: Vision,hot flashes,headache Time Seen by Provider: 08/24/22 13:31 Source: patient Mode of arrival: ambulatory Limitations: no limitations - History of Present Illness Initial comments: Dictation was produced using [employer] dictation software. please excuse any grammatical, word or spelling errors. Chief Complaint: 76-year-old male presents to the emergency department for 1-2 days of malaise History of Present Illness: 76-year-old male who has past medical history of asthma, A. fib, coronary artery disease presents emergency department for 2 days of malaise. States that his symptoms include weakness, rhinorrhea, hot flashes, lethargy and headaches. Patient denies any cough. He has had some sinus pressure that seemed to be slightly worse. He drove his to physical therapy. While he is waiting in the car for her physical therapy to be done started to feel little symptomatic. Patient states that his vision became slightly blurry for several 7 minutes. Patient states that he feels significantly weak. Denies any abdominal pain. He has chronic diarrhea. Last night he was having some bouts of feeling hot. The ROS documented in this emergency department record has been reviewed and confirmed by me. Those systems with pertinent positive or negative responses have been documented in the HPI. All other systems are other negative and/or n oncontributory. - Related Data Home Medications Medication Instructions Recorded Confirmed Multivitamin [Men's Multi-Vitamin] 1 tab PO DAILY 04/01/15 08/24/22 Tamsulosin HCl [Flomax] 0.4 mg PO DAILY 10/09/18 08/24/22 Metoprolol Succinate (ER) [Toprol 50 mg PO HS 12/20/18 08/24/22 XL] Pantoprazole [Protonix] 40 mg PO HS 12/20/18 08/24/22 metFORMIN HCL 500 mg PO BID 12/20/18 08/24/22 Atorvastatin [Lipitor] 40 mg PO HS 09/22/20 08/24/22 Canagliflozin [Invokana] 300 mg PO DAILY 09/22/20 08/24/22 Cholecalciferol [Vitamin D3 (25 25 mcg PO DAILY 09/22/20 08/24/22 Mcg = 1000 Iu)] Apixaban [Eliquis] 5 mg PO BID 08/24/21 08/24/22 predniSONE 5 mg PO DAILY 08/24/21 08/24/22 Cyanocobalamin (Vitamin B-12) 5,000 mcg PO DAILY 05/07/22 08/24/22 [Vitamin B-12] Gabapentin 600 mg PO HS 05/07/22 08/24/22 Albuterol Sulfate [Albuterol 1 - 2 puff PO RT-Q4H PRN 07/14/22 08/24/22 Sulfate Hfa] Fluticasone/Vilanterol [Breo 1 puff INHALATION RT-DAILY 07/14/22 08/24/22 Ellipta 100-25 Mcg Inhaler] Gabapentin [Neurontin] 300 mg PO DAILY 07/14/22 08/24/22 lisinopriL [Prinivil] 10 mg PO DAILY 08/24/22 08/24/22 Previous Rx's Medication Instructions Recorded Amiodarone [Cordarone] 200 mg PO DAILY #60 tab 07/17/22 Amoxic-Pot Clav 875-125Mg 1 tab PO BID 10 Days #20 tab 08/24/22 [Augmentin 875-125] methylPREDNISolone Dose Pack 4 mg PO DIRECTED #1 packet 08/24/22 [Medrol Dose Pack] Allergies Allergy/AdvReac Type Severity Reaction Status Date / Time azithromycin [From Zithromax] AdvReac Nausea & Verified 08/24/22 15:50 Vomiting Review of Systems ROS Statement: Those systems with pertinent positive or pertinent negative responses have been documented in the HPI. ROS Other: All systems not noted in ROS Statement are negative. Past Medical History Past Medical History: Atrial Fibrillation, Blood Disorder, Coronary Artery Disease (CAD), Cancer, CVA/TIA, Diabetes Mellitus, GERD/Reflux, Hyperlipidemia, Hypertension, Osteoarthritis (OA), Prostate Disorder, Vascular Disorder Additional Past Medical History / Comment(s): Hx skin cancer, post CABG A fib, TIA years ago, pernicious anemia with monthly injections, hiatal hernia, BPH, venous insufficiency, occasional lower leg/pedal edema, spinal stenosis, herniated disc L1, spinal cyst, chronic low back pain, rare neck pain, benign colon polyp, hx Covid 06/2019. History of Any Multi-Drug Resistant Organisms: None Reported Past Surgical History: Bowel Resection, Cholecystectomy, Coronary Bypass/CABG, Heart Catheterization, Hernia Repair, Joint Replacement Additional Past Surgical History / Comment(s): 10/2018 CABG 2 vessels, bilateral knee replacements, right done twice, bowel resection at age 12 yrs d/t obstruction, umbilical hernia repair, skin cancer removed from 3 spots, colonoscopy, back injections, bilateral cataract removals with lens implants. Past Anesthesia/Blood Transfusion Reactions: No Reported Reaction Past Psychological History: No Psychological Hx Reported Smoking Status: Never smoker Past Alcohol Use History: None Reported Past Drug Use History: None Reported - Past Family History Father Family Medical History: Congestive Heart Failure (CHF), CVA/TIA Additional Family Medical History / Comment(s): at age 68. Brother(s) Family Medical History: Cancer, COPD, Diabetes Mellitus Additional Family Medical History / Comment(s): Heart problems. Mother Family Medical History: Myocardial Infarction ([place]) Additional Family Medical History / Comment(s): at 79 w/ [place]. General Exam - General Exam Comments Initial Comments: PHYSICAL EXAM: General Impression: Alert and oriented x3, not in acute distress HEENT: Normocephalic atraumatic, extra-ocular movements intact, pupils equal and reactive to light bilaterally, mucous membranes moist. Cardiovascular: Heart regular rate and rhythm Chest: Able to complete full sentences, no retractions, no tachypnea Abdomen: abdomen soft, non-tender, non-distended, no organomegaly Musculoskeletal: Pulses present and equal in all extremities, no peripheral edema Motor: no focal deficits noted Neurological: CN II-XII grossly intact, no focal motor or sensory deficits noted Skin: Intact with no visualized rashes Psych: Normal affect and mood Limitations: no limitations Course Vital Signs 08/24/22 08/24/22 08/24/22 13:20 13:34 13:40 Temperature 97.9 F Pulse Rate 63 63 61 Pulse Rate [ Healthcare Specialist ] Respiratory 16 16 18 Rate Blood Pressure 154/89 156/88 O2 Sat by Pulse 95 Oximetry 08/24/22 08/24/22 08/24/22 13:50 14:00 14:10 Temperature Pulse Rate 62 60 Pulse Rate [ Healthcare Specialist ] Respiratory 24 10 L Rate Blood Pressure 156/88 156/88 162/76 O2 Sat by Pulse 96 98 Oximetry 08/24/22 08/24/22 08/24/22 14:17 14:20 14:30 Temperature Pulse Rate 57 L 58 L Pulse Rate [ 86 Healthcare Specialist ] Respiratory 16 15 Rate Blood Pressure 162/76 162/76 O2 Sat by Pulse 94 L 92 L Oximetry 08/24/22 08/24/22 08/24/22 14:40 14:50 15:00 Temperature Pulse Rate 59 L 59 L 76 Pulse Rate [ Healthcare Specialist ] Respiratory 4 L 19 20 Rate Blood Pressure 166/81 166/81 166/81 O2 Sat by Pulse 94 L 96 96 Oximetry 08/24/22 08/24/22 08/24/22 15:10 15:20 15:30 Temperature Pulse Rate 60 64 58 L Pulse Rate [ Healthcare Specialist ] Respiratory 21 12 8 L Rate Blood Pressure 134/65 134/65 134/65 O2 Sat by Pulse 95 94 L Oximetry 08/24/22 16:43 Temperature Pulse Rate 68 Pulse Rate [ Healthcare Specialist ] Respiratory 16 Rate Blood Pressure 120/68 O2 Sat by Pulse 98 Oximetry EKG Findings - EKG Comments: EKG Findings:: My EKG interpretation: Ventricular rate 61, sinus rhythm,. 106, QRS 110, QTc 457. No TN prolongation, no QTC prolongation, no ST or T-wave changes noted. Overall, this EKG is unremarkable Medical Decision Making - Medical Decision Making Was pt. sent in by a medical professional or institution (, PA, FINGERPRINTER, urgent care, hospital, or prison...) When possible be specific @ -No Did you speak to anyone other than the patient for history (EMS, parent, family, police, friend...)? What history was obtained from this source @ - at the bedside 8 subsiding history states that patient is seemingly weak Did you review nursing and triage notes (agree or disagree)? Why? @ -I reviewed and agree with nursing and triage notes Were old charts reviewed (outside hosp., previous admission, EMS record, old EKG, old radiological studies, urgent care reports/EKG's, prison records)? Report findings @ -Pulmonary consultation or reviewed from July of this year showing the patient was evaluated for exertional dyspnea Differential Diagnosis (chest pain, altered mental status, abdominal pain women, abdominal pain men, vaginal bleeding, musculoskeletal, weakness, fever, dyspnea, syncope, headache, dizziness, GI bleed, back pain, seizure, CVA, palpatations, mental health)? @ -Differential Weakness: Hypoglycemia, shock, sepsis, hyponatremia, anemia, infection, [place], ETOH, adverse medicine reaction, overdose, stroke, this is not meant to be an all-inclusive list. EKG interpreted by me (3pts min.). @ -See above X-rays interpreted by me (1pt min.). @ -Chest x-ray shows no acute processes CT interpreted by me (1pt min.). @ -Computed tomography scan of brain shows no acute intracranial processes. However there does appear to be a mucus retention cyst versus polyp in the left maxillary sinus U/S interpreted by me (1pt. min.). @ -None done What testing was considered but not performed or refused? (CT, X-rays, U/S, labs)? Why? @ -None What meds were considered but not given or refused? Why? @ -None Did you discuss the management of the patient with other professionals (professionals i.e. , PA, FINGERPRINTER, lab, RT, psych nurse, social worker clinical, student financial services counselor, teacher, optics technical officer, rn case management)? Give summary @ -No Was smoking cessation discussed for >3mins.? @ -No Was critical care preformed (if so, how long)? @ -No Were there social determinants of health that impacted care today? How? (Homelessness, low income, unemployed, alcoholism, drug addiction, transportation, low edu. Level, literacy, decrease access to med. care, skilled nursing, rehab)? @ -No Was there de-escalation of care discussed even if they declined (Discuss DNR or withdrawal of care, Hospice)? DNR status @ -No What co-morbidities impacted this encounter? (DM, HTN, Smoking, COPD, CAD, Cancer, CVA, ARF, Chemo, Hep., AIDS, mental health diagnosis, sleep apnea, morbid obesity)? @ -None Was patient admitted / discharged? Hospital course, mention meds given and route, prescriptions, significant lab abnormalities, going to OR and other pertinent info. @ -36-year-old male presents emergency department for acute malaise, reported hot flashes headaches and weakness. Vital signs upon arrival shows findings within acceptable limits. Laboratory evaluation shows no leukocytosis. CBC, coag panel metabolic panel is unremarkable. Troponin is negative. Imaging studies show left maxillary sinus polyp versus cyst. Patient observed in emergency department for approximately 2 hours and 30 minutes. Patient revealed a bedside at 3:45 PM. States that he feels pretty good. Disposition options were discussed. Patient preferred to be discharge. Is concerned that patient suffering from sinus infection given the constitutional symptoms, malaise and rhinorrhea. Patient understands that he should return to emergency department with worsening symptoms especially given that he has significant past medical history and comorbidities. Patient prescribed Augmentin and Medrol Dosepak. Advised to follow closely with primary care doctor. Undiagnosed new problem with uncertain prognosis? @ -No Drug Therapy requiring intensive monitoring for toxicity (Heparin, Nitro, Insulin, Cardizem)? @ -No Were any procedures done? @ -No Diagnosis/symptom? Acute, or Chronic, or Acute on Chronic? Uncomplicated (without systemic symptoms) or Complicated (systemic symptoms)? @ -1. Acute malaise, no obvious source Side effects of treatment? @ -No Exacerbation, Progression, or Severe Exacerbation? @ -No Poses a threat to life or bodily function? How? (Chest pain, [place], [place], pneumonia, PE, COPD, DKA, ARF, appy, cholecystitis, CVA, Diverticulitis, Homicidal, Suicidal, threat to staff... and all critical care pts) @ -No - Lab Data Result diagrams: 08/24/22 13:42 08/24/22 13:42 Lab Results 08/24/22 08/24/22 08/24/22 Range/Units 13:42 13:42 13:42 WBC 6.8 (3.8-10.6) k/uL RBC 5.31 (4.30-5.90) m/uL Hgb 15.0 (13.0-17.5) gm/dL Hct 46.4 (39.0-53.0) % MCV 87.3 (80.0-100.0) fL MCH 28.2 (25.0-35.0) pg MCHC 32.3 (31.0-37.0) g/dL RDW 15.0 (11.5-15.5) % Plt Count 133 L (150-450) k/uL MPV 8.0 Neutrophils % 75 % Lymphocytes % 15 % Monocytes % 6 % Eosinophils % 2 % Basophils % 0 % Neutrophils # 5.1 (1.3-7.7) k/uL Lymphocytes # 1.0 (1.0-4.8) k/uL Monocytes # 0.4 (0-1.0) k/uL Eosinophils # 0.2 (0-0.7) k/uL Basophils # 0.0 (0-0.2) k/uL PT (9.0-12.0) sec INR (<1.2) APTT (22.0-30.0) sec Sodium 142 (137-145) mmol/L Potassium 4.3 (3.5-5.1) mmol/L Chloride 106 (98-107) mmol/L Carbon Dioxide 28 (22-30) mmol/L Anion Gap 8 mmol/L BUN 26 H (9-20) mg/dL Creatinine 1.09 (0.66-1.25) mg/dL Est GFR (CKD-EPI)AfAm 75 (>60 ml/min/1.73 sqM) Est GFR (CKD-EPI)NonAf 65 (>60 ml/min/1.73 sqM) Glucose 137 H (74-99) mg/dL Plasma Lactic Acid Reg 1.8 (0.7-2.0) mmol/L Calcium 9.0 (8.4-10.2) mg/dL Magnesium 1.7 (1.6-2.3) mg/dL Total Bilirubin 0.8 (0.2-1.3) mg/dL AST 21 (17-59) U/L ALT 20 (4-49) U/L Alkaline Phosphatase 83 (38-126) U/L Troponin I (0.000-0.034) ng/mL Total Protein 6.6 (6.3-8.2) g/dL Albumin 4.0 (3.5-5.0) g/dL Influenza Type A (PCR) (Not Detectd) Influenza Type B (PCR) (Not Detectd) RSV (PCR) (Not Detectd) SARS-CoV-2 (PCR) (Not Detectd) 08/24/22 08/24/22 08/24/22 Range/Units 13:42 13:42 13:42 WBC (3.8-10.6) k/uL RBC (4.30-5.90) m/uL Hgb (13.0-17.5) gm/dL Hct (39.0-53.0) % MCV (80.0-100.0) fL MCH (25.0-35.0) pg MCHC (31.0-37.0) g/dL RDW (11.5-15.5) % Plt Count (150-450) k/uL MPV Neutrophils % % Lymphocytes % % Monocytes % % Eosinophils % % Basophils % % Neutrophils # (1.3-7.7) k/uL Lymphocytes # (1.0-4.8) k/uL Monocytes # (0-1.0) k/uL Eosinophils # (0-0.7) k/uL Basophils # (0-0.2) k/uL PT 10.7 (9.0-12.0) sec INR 1.0 (<1.2) APTT 26.0 (22.0-30.0) sec Sodium (137-145) mmol/L Potassium (3.5-5.1) mmol/L Chloride (98-107) mmol/L Carbon Dioxide (22-30) mmol/L Anion Gap mmol/L BUN (9-20) mg/dL Creatinine (0.66-1.25) mg/dL Est GFR (CKD-EPI)AfAm (>60 ml/min/1.73 sqM) Est GFR (CKD-EPI)NonAf (>60 ml/min/1.73 sqM) Glucose (74-99) mg/dL Plasma Lactic Acid Reg (0.7-2.0) mmol/L Calcium (8.4-10.2) mg/dL Magnesium (1.6-2.3) mg/dL Total Bilirubin (0.2-1.3) mg/dL AST (17-59) U/L ALT (4-49) U/L Alkaline Phosphatase (38-126) U/L Troponin I 0.012 (0.000-0.034) ng/mL Total Protein (6.3-8.2) g/dL Albumin (3.5-5.0) g/dL Influenza Type A (PCR) Not Detected (Not Detectd) Influenza Type B (PCR) Not Detected (Not Detectd) RSV (PCR) Not Detected (Not Detectd) SARS-CoV-2 (PCR) Not Detected (Not Detectd) Disposition Clinical Impression: Sinusitis Disposition: HOME SELF-CARE Condition: Fair Instructions (If sedation given, give patient instructions): Weakness (ED) Prescriptions: Amoxic-Pot Clav 875-125Mg [Augmentin 875-125] 1 tab PO BID 10 Days #20 tab methylPREDNISolone Dose Pack [Medrol Dose Pack] 4 mg PO DIRECTED #1 packet Is patient prescribed a controlled substance at d/c from ED?: No Referrals: Triny Weathers DO [Primary Care Provider] - 1-2 days
[2022-08-24 14:13] LABS: Basophils % (A) 0 %; Eosinophils # (A) 0.2 k/uL (0-0.7); Eosinophils % (A) 2 %; HCT 46.4 % (39.0-53.0); Lymphocytes % (A) 15 %; MCH 28.2 pg (25.0-35.0); MCHC 32.3 g/dL (31.0-37.0); MCV 87.3 fL (80.0-100.0); Monocytes # (A) 0.4 k/uL (0-1.0); Monocytes % (A) 6 %; Neutrophils # (A) 5.1 k/uL (1.3-7.7); Neutrophils % (A) 75 %; Platelet Count 133 k/uL (150-450); RBC 5.31 m/uL (4.30-5.90); WBC 6.8 k/uL (3.8-10.6)
[2022-08-24 14:24] LABS: Magnesium 1.7 mg/dL (1.6-2.3); Potassium 4.3 mmol/L (3.5-5.1); Total Bilirubin 0.8 mg/dL (0.2-1.3); Total Protein 6.6 g/dL (6.3-8.2)
[2022-08-24 14:28] LABS: Prothrombin Time 10.7 sec (9.0-12.0)
--- NOTE | 2022-08-24 14:38 | CT ---
EXAMINATION TYPE: CT brain wo con DATE OF EXAM: 08/24/2022 COMPARISON: None HISTORY: 76-year-old male presyncope, sinus congestion, Blurred vision, headache TECHNIQUE: Examination was done in axial plane without intravenous contrast. Coronal and sagittal r econstructions performed. CT DLP: 1157 mGycm Automated exposure control for dose reduction was used. FINDINGS: There is no evidence of acute intracranial hemorrhage, acute ischemic changes, mass, mass-effect, or extra-axial fluid collection. There is no effacement of cerebral sulci or basal subarachnoid cister ns. There is no hydrocephalus. There is no midline shift. Jacobsen-white matter distinction is preserv ed. There is a 2.2 cm polyp or mucosal retention cyst along the floor of the left maxillary sinus. Leftwa rd nasal septal deviation. Mastoid air cells are well pneumatized. Orbits and globes are intact. Atherosclerotic calcifications within the bilateral carotid siphons. Moderate patchy periventricular white matter hypodensities and also within the subinsular white matte r on both sides. Old lacunar infarcts left basal ganglia. IMPRESSION: Moderate patchy burden of chronic small vessel ischemic disease. Old lacunar infarcts left basal gang rashard. No acute intracranial abnormality seen. A 2.2 cm polyp or mucosal retention cyst along the floor of the left maxillary sinus. Leftward nasal septal deviation.
--- NOTE | 2022-08-24 14:45 | XR ---
EXAMINATION TYPE: XR chest 2V DATE OF EXAM: 08/24/2022 COMPARISON: 07/14/2022 HISTORY: 76-year-old male with malaise TECHNIQUE: PA and lateral views FINDINGS: Heart upper limits of normal in size. Median sternotomy wires, plate and screw fixation, and post-CAB G clips. Interstitial/vascular prominence is unchanged. No consolidation or pleural effusion. [facility] th roughout the thoracic spine. IMPRESSION: Mild cardiomegaly and chronic changes. Additional post-CABG changes. No definite acute process.
[2022-08-24 16:45] VITALS: BP 120/68; PULSE 68; RESP 16
== END 2022-08-24 16:49 | disposition home or self-care (01) ==
LOC: EC 13:18
DX: J32.9 Chronic sinusitis, unspecified (principal); I48.91 Unspecified atrial fibrillation; I25.10 Atherosclerotic heart disease of native coronary artery without angina pectoris; E78.5 Hyperlipidemia, unspecified; E11.9 Type 2 diabetes mellitus without complications; I10 Essential (primary) hypertension; J45.909 Unspecified asthma, uncomplicated; M19.90 Unspecified osteoarthritis, unspecified site; K21.9 Gastro-esophageal reflux disease without esophagitis; Z86.73 Personal history of transient ischemic attack (TIA), and cerebral infarction without residual deficits; Z88.1 Allergy status to other antibiotic agents; Z86.16 Personal history of COVID-19; Z79.84 Long term (current) use of oral hypoglycemic drugs; Z79.899 Other long term (current) drug therapy; Z79.01 Long term (current) use of anticoagulants; Z79.51 Long term (current) use of inhaled steroids; Z20.822 Contact with and (suspected) exposure to COVID-19
CPT/HCPCS: 36415; 70450; 71046; 80053; 83605; 83735; 84484; 85025; 85610; 85730; 87636; 93005; 96360; 99285

== ENCOUNTER → 2023-03-27 | Outpatient (CLI) | payer MEDICARE, BC ==
--- NOTE | 2023-03-27 08:58 | CT ---
EXAMINATION TYPE: CT chest wo con CT DLP: 962 mGycm, Automated exposure control for dose reduction was used. DATE OF EXAM: 03/27/2023 8:23 AM COMPARISON: 07/15/2022. CLINICAL INDICATION:Male, 77 years old with history of R07.9 Chest pain; PHH, chest pain TECHNIQUE: Multiple axial images were obtained through the chest. Sagittal and coronal reformats were created for review. Contrast used: mL of (None if empty) Oral contrast used: (None if empty) FINDINGS: LUNGS/ PLEURA: Area in the left lung base on prior is felt to represent atelectasis/scarring. Mild in tralobular septal thickening. No focal consolidation, pneumothorax or pleural effusion. There is stre aky atelectasis in the lung bases. AIRWAY: Patent and unremarkable. HEART: The heart is mildly enlarged for size there is moderate to severe coronary artery atherosclero sis. Lipomatous hypertrophy of the anterior atrial septum. MEDIASTINUM: No gross evidence of adenopathy. VASCULATURE: No aortic aneurysm. MUSCULOSKELETAL: No acute osseous abnormalities, sternotomy wires are present. SOFT TISSUES/LYMPH NODES: Unremarkable. LOWER NECK: No significant findings. UPPER ABDOMEN: The gallbladder surgically absent. IMPRESSION: 1. Left lung base atelectasis/scarring, no suspicious pulmonary nodules. 2. Cardiomegaly with pulmonary vascular congestion correlate with serum BNP. 3. Moderate to severe coronary artery atherosclerosis. Follow up recommendations for incidental pulmonary nodules, if there are any, are per [employer] [place] [employer] or [employer] [place] [employer]. [email or web address].[email or web address]?lang=us
== END | disposition home or self-care (01) ==
LOC: RADCTMAIN 08:00
PROVIDERS: ATTEND Neuromusculoskeletal Medicine, Sports Medicine
DX: I25.10 Atherosclerotic heart disease of native coronary artery without angina pectoris (principal); I51.7 Cardiomegaly; J98.11 Atelectasis; R09.89 Other specified symptoms and signs involving the circulatory and respiratory systems
CPT/HCPCS: 71250

== ENCOUNTER 2023-04-21 06:37 | Day surgery (SDC) | payer MEDICARE, BC ==
[2023-04-16 11:58] VITALS: BMI 43.4
[~2023-04-21 06:37] MED LIST changes: +ALPRAZolam 0.25 MG TAB PO PRN; +ALPRAZolam 0.5 MG TAB PO PRN; +ASPIRIN 325 MG TAB PO STA; +HEPARIN SODIUM,PORCINE (1 ML) 2,500 UNIT in SODIUM CHLORIDE 0.9% 250 ML IRRIGATION PRN; +HEPARIN SODIUM,PORCINE 10,000 UNIT in SODIUM CHLORIDE 0.9% 1,000 ML IRRIGATION PRN; -LACTATED RINGERS 1,000 ML IV SCH; +NITROGLYCERIN SL TABS 0.4 MG TAB SUBLINGUAL PRN; +SODIUM CHLORIDE 0.9% 1,000 ML in EMPTY BAG 1 BAG IV SCH
[2023-04-21 06:58] LABS: Glucose,Whole Blood 134 mg/dL (70-110)
[2023-04-21] MEDS ORDERED: fentaNYL (PF) 50 MCG/ML 2 ML AMP ONE (07:01)
[2023-04-21 07:05] VITALS: RESP 18; TEMP 98
[2023-04-21] MEDS: BENZOCAINE SPRAY 1 CAN MUCOUS MEM ONE ×2 (07:07→07:24)
[2023-04-21] MEDS ORDERED: IV FLUID CONTINUATION 1,000 ML IV ONE (07:08)
[2023-04-21] MEDS: fentaNYL (PF) 50 MCG/ML 2 ML AMP IVP ONE ×2 (07:25→07:28)
[2023-04-21] MEDS ORDERED: MIDAZOLAM 2 MG/2 ML VIAL IVP ONE ×3 (07:25→09:29)
--- NOTE | 2023-04-21 08:01 | P.TEE ---
Description of Procedure(s): Procedure performed: Transesophageal Echocardiogram with color flow doppler, pulsed wave doppler and continuous wave doppler, moderate conscious sedation Moderate conscious sedation: Moderate conscious sedation was supplied with direct supervision of myself using Versed and Fentanyl. Complications: none Indications: Aortic stenosis PROCEDURE: After the risks, benefits and alternatives of the above mentioned procedure was explained in detail with the patient, informed consent was obtained. Patient was brought to the lab in a fasting state. Patient was given IV Versed and Fentanyl for sedation. The throat was sprayed with Hurricane to anesthetize the throat. A lubricated Omni probe was then introduced into the esophagus and stomach and multiple views were obtained. 2D echo with color flow doppler, pulsed wave doppler and continuous wave doppler was utilized. Agitated saline bubbles were injected to assess for any intra-atrial shunt. The probe was then removed. Patient tolerated the procedure well. Patient was transferred to the post procedure area in stable and satisfactory condition. FINDINGS: 1. The aortic valve is tricuspid with moderate to severe aortic stenosis, aortic valve area 1.0-1.1 cm by planimetry. Somewhat off axis velocities with mean gradient 29 mmHg. 2. The mitral valve appears be normal with trace mitral regurgitation. 3. Tricuspid valve appears to be normal. 4. The interatrial septum is intact. No evidence of PFO. 5. Left atrial appendage has been clipped and no thrombus. 6. Left ventricular size and function are normal with left ventricular ejection fraction 55%
[2023-04-21] MEDS ORDERED: VERAPAMIL 2.5 MG/ML 2 ML AMP ONE (09:04)
[2023-04-21] MEDS ORDERED: HEPARIN SODIUM 1,000 UN/ML (10ML VL) ONE (09:14)
[2023-04-21] MEDS ORDERED: LIDOCAINE 1% INJ 10MG/ML (30 ML VIAL-PF) SQ ONE (09:28)
[2023-04-21] MEDS ORDERED: HEPARIN SODIUM 1,000 UN/ML (10ML VL) IV ONE (09:37)
[2023-04-21] MEDS: VERAPAMIL SYRINGE (5 MG/10 ML) INTRAARTER ONE ×2 (09:38→10:07)
[2023-04-21] MEDS ORDERED: HYDROmorphone 0.5 MG/0.5 ML SYRINGE IVP ONE ×2 (09:47→10:15)
[2023-04-21] MEDS ORDERED: IOPAMIDOL-370 100ML BTL INJ ONE (10:20)
--- NOTE | 2023-04-21 11:39 | CC ---
CARDIAC CATHETERIZATION REPORT PROCEDURE PERFORMED: Coronary angiography and selective injection of the CHE graft. PERFORMED BY: Dr. Bianca Sprague. ANESTHESIA: Moderate conscious sedation time was 58 minutes. The patient was administered Versed and Dilaudid. Oxygen saturation, hemodynamics, and EKG were monitored closely. CLINICAL INFORMATION: Mr. Alirio Pimentel is a morbidly obese gentleman with history of CAD, obstructive sleep apnea, and also has hypertension, obesity, diabetes, and calcified coronary arteries. He had a CHE to LAD and diagonal sequentially performed off pump in October 2018. Because of increasing aortic stenosis with calcific aortic valve and symptoms of increasing shortness of breath, he was advised cardiac cath. He also has paroxysmal atrial fibrillation, type 2 diabetes, morbid obesity, hypertension, and CAD with bypass surgery. PROCEDURE NOTE: Under local anesthesia and strict aseptic precautions, a 6-Bulgarian introducer was placed in the left radial artery. Initially with a Natalya catheter, I tried to do selective injection of the CHE, but I was not very good and I was not able to get a good picture. I then performed with a standard right Julito catheter, selective coronary angiography of the right coronary. The ascending aorta and subclavian were very tortuous. I had difficulty getting to the left side because of significant spasm. I used a stiff Amplatz wire and a JL 4.5 catheter of 5-Bulgarian caliber. With this I was able to selectively cannulate the left coronary artery. I then used a CHE catheter and performed selective injection of the CHE graft on the way out. LV pressures were not obtained. Aortic valve was not crossed. Sheath was taken out and TR band applied as per protocol. Saturation of the fingers of the right hand was 97%. The patient tolerated procedure well without complications. This was a technically difficult procedure because of spasm and also tortuosity of the ascending aorta and the subclavian system. CORONARY ANGIOGRAPHY FINDINGS: 1. Right Coronary Artery: Dominant vessel, no significant disease, minor irregularities of less than 30%, gives off several acute marginal branches and distal posterolateral branch. No significant disease. 2. Left Main Coronary Artery: Long patent vessel, no significant disease. Bifurcates into LAD and circumflex. 3. Left Anterior Descending Coronary Artery: Good caliber vessel, extends along the anterior wall, gives off 2 diagonal branches that is totally occluded after diagonal and septal branch. This was grafted with the CHE graft. 4. Left Posterior Circumflex Coronary Artery: Nondominant vessel gives off a single obtuse marginal and AV groove branch has minor irregularities, no significant disease. 5. Left Internal Mammary Artery Graft to LAD: This graft is widely patent. This is a sequential graft that attaches to the LAD as well as to the diagonal. Both the vessels are widely patent with remarkably good flow. Widely patent graft. No significant disease within the opacified LAD and diagonal. 6. This patient had a transesophageal echo which revealed severe aortic stenosis. IMPRESSION: 1. Severe symptomatic aortic stenosis documented on transesophageal echo. 2. Right-dominant system, no significant disease in RCA. Left main is free of significant disease. Circumflex has minor irregularities, nondominant. LAD is totally occluded in the midportion. The CHE to LAD is widely patent and it opacifies both the LAD and diagonal, both of which are sequentially grafted. RECOMMENDATIONS: Findings were discussed with the patient and family. I am recommending percutaneous aortic valve replacement for severe symptomatic aortic stenosis in this patient. He will be seen by the Structural Heart Team. MMODL / IJN: [id number] /
[2023-04-21 13:50] VITALS: BP 130/68; PULSE 60
== END 2023-04-21 14:34 | disposition home or self-care (01) ==
LOC: CATHCVL 06:37
PROVIDERS: ATTEND Internal Medicine
DX: I08.0 Rheumatic disorders of both mitral and aortic valves (principal)
CPT/HCPCS: 93312; 93320; 93325; 93455; C1769 ×3; C1894; J2250; J2001; J3010; J1644; J1170; Q9967

== ENCOUNTER → 2023-04-29 | Outpatient (CLI) | payer MEDICARE, BC ==
[2023-04-29 10:01] LABS: Potassium 4.1 mmol/L (3.5-5.1)
[2023-04-29 10:02] LABS: ALT 22 U/L (4-49); AST 27 U/L (17-59); African American GFR (CKD) 74 (>60 ml/min/1.73 sqM); Albumin 3.9 g/dL (3.5-5.0); Albumin/Globulin Ratio 1.4; Alkaline Phosphatase 85 U/L (38-126); Anion Gap 7 mmol/L; Blood Urea Nitrogen 20 mg/dL (9-20); Calcium 9.3 mg/dL (8.4-10.2); Carbon Dioxide 28 mmol/L (22-30); Chloride 109 mmol/L (98-107); Globulin 2.8 g/dL; Glucose 122 mg/dL (74-99); Non-African American GFR(CKD) 64 (>60 ml/min/1.73 sqM); Sodium 144 mmol/L (137-145); Total Protein 6.7 g/dL (6.3-8.2)
--- NOTE | 2023-04-29 11:39 | CT ---
EXAMINATION TYPE: CT TAVR Planning DATE OF EXAM: 04/29/2023 HISTORY: Pre TAVR CT DLP: 3706.8 mGycm Automated Exposure Control for Dose Reduction was Utilized. CONTRAST: CT scan of the chest, abdomen and pelvis is performed with IV Contrast, patient injected with 150 mL of Isovue 370. COMPARISON: Prior chest CT March 27, 2023 TECHNIQUE: Helical imaging obtained through the chest, abdomen and pelvis during arterial phase quinton ephraim administration of radiographic contrast intravenously. FINDINGS: See report from [place] regarding preprocedural planning CHEST: Lower Neck and Thyroid: No significant findings Lungs: [id number] left lower lung linear scarring. Central Airway: No significant findings Pleura: No significant findings Pulmonary Arteries: No significant findings Heart and Pericardium: Calcification and thickening of the aortic valve leaflets. 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 Lymph Nodes: A subcentimeter right hilar and subcarinal lymph nodes Mediastinum & Esophagus: No significant findings ABDOMEN/PELVIS: Please note arterial phase of the imaging limits detailed evaluation of the solid abdominal organs. Liver: The gallbladder is surgically absent. Liver is diffusely low dense consistent with fatty infil trative hepatocellular disease Spleen: No significant findings Kidneys: Some cortical thinning in both kidneys. A few simple-appearing thin-walled cystic areas of t he left kidney are present. Adrenal Glands: No significant findings Pancreas: No significant findings Gallbladder: No significant findings Bowel and Mesentery: No significant findings Lymph Nodes: No significant findings Urinary Bladder: No significant findings Pelvic Organs: Enlarged prostate gland consistent with BPH. Other: No significant findings IMPRESSION: Incidental findings are noted as detailed above.
[2023-04-29 11:51] LABS: Basophils % (A) 1 %; Eosinophils # (A) 0.2 k/uL (0-0.7); Eosinophils % (A) 4 %; HCT 43.7 % (39.0-53.0); HGB 14.5 gm/dL (13.0-17.5); Hypochromasia Slight; Lymphocytes # (A) 1.4 k/uL (1.0-4.8); Lymphocytes % (A) 26 %; MCH 29.2 pg (25.0-35.0); MCHC 33.2 g/dL (31.0-37.0); MCV 88.2 fL (80.0-100.0); Mean Platelet Volume 8.9; Monocytes # (A) 0.4 k/uL (0-1.0); Monocytes % (A) 7 %; Neutrophils # (A) 3.2 k/uL (1.3-7.7); Neutrophils % (A) 60 %; Platelet Count 171 k/uL (150-450); Poikilocytosis Slight; RBC 4.95 m/uL (4.30-5.90); RDW 14.4 % (11.5-15.5); WBC 5.4 k/uL (3.8-10.6)
[2023-04-29 11:59] LABS: Partial Thromboplastin Time 25.8 sec (22.0-30.0)
[2023-04-29 12:05] LABS: NT-Pro-B-Type Natriuretic Pept 155 pg/mL
[2023-04-29 16:29] LABS: Magnesium 1.8 mg/dL (1.5-2.4)
[2023-04-29 16:41] LABS: Hepatitis A Antibody IgM Nonreactive; Hepatitis B Core IgM Nonreactive; Hepatitis B Surface Antigen Nonreactive; Hepatitis C IgG Antibody Nonreactive
[2023-04-29 16:47] LABS: Chol/HDL Ratio 2.73 Ratio
[2023-04-29 20:19] LABS: Bacteria,Urine None Seen (None Seen)
[2023-04-29 20:43] LABS: Appearance,Urine Clear (Clear); Bilirubin,Urine Negative (Negative); Blood,Urine Trace (Negative); Color,Urine Yellow (Yellow); Ketones,Urine Trace (Negative); Nitrite,Urine Negative (Negative); PH, Urine 5.5; Specific Gravity,Urine 1.035 (1.001-1.030)
== END | disposition home or self-care (01) ==
LOC: LABWHC1 09:09
PROVIDERS: ATTEND Thoracic Surgery (Cardiothoracic Vascular Surgery)
DX: Z01.818 Encounter for other preprocedural examination (principal); I35.1 Nonrheumatic aortic (valve) insufficiency; E07.9 Disorder of thyroid, unspecified; E87.8 Other disorders of electrolyte and fluid balance, not elsewhere classified; E78.5 Hyperlipidemia, unspecified; E11.9 Type 2 diabetes mellitus without complications; N28.9 Disorder of kidney and ureter, unspecified; R58 Hemorrhage, not elsewhere classified; I49.1 Atrial premature depolarization; R35.0 Frequency of micturition; Z79.01 Long term (current) use of anticoagulants; Z79.899 Other long term (current) drug therapy; R94.31 Abnormal electrocardiogram [ECG] [EKG]
CPT/HCPCS: 94150; 83880; 80061; 80053; 80074; 84443; 83735; 85025; 85610; 85730; 81001; 87086; 83036; 71275; 36415 ×2; 74174; 93005; Q9967

== ENCOUNTER → 2023-07-16 | Outpatient (CLI) | payer MEDICARE, BC ==
[2023-07-16 11:50] LABS: Partial Thromboplastin Time 26.9 sec (22.0-30.0); Prothrombin Time 11.1 sec (10.0-12.5)
[2023-07-16 15:41] LABS: BUN/Creat Ratio 16.69 Ratio (12.00-20.00); Blood Urea Nitrogen 21.7 mg/dL (9.0-27.0); Chloride 106 mmol/L (96-109); Glucose 145 mg/dL (70-110); Sodium 145 mmol/L (135-145)
[2023-07-16 15:42] LABS: ALT 28 U/L (10-49); AST 17 U/L (14-35); Albumin 4.2 g/dL (3.8-4.9); Albumin/Globulin Ratio 1.56 Ratio (1.60-3.17); Alkaline Phosphatase 108 U/L (41-126); Calcium 9.6 mg/dL (8.7-10.3); Globulin 2.7 g/dL (1.6-3.3); Total Bilirubin 0.6 mg/dL (0.3-1.2); Total Protein 6.9 g/dL (6.2-8.2)
[2023-07-16 15:52] LABS: Basophils # (A) 0.05 X 10*3/uL (0.00-0.10); Basophils % (A) 0.7 %; Eosinophils # (A) 0.22 X 10*3/uL (0.04-0.35); Eosinophils % (A) 3.2 %; HCT 44.3 % (39.6-50.0); HGB 14.1 g/dL (13.0-17.0); Lymphocytes # (A) 1.68 X 10*3/uL (0.90-5.00); Lymphocytes % (A) 24.6 %; MCH 27.3 pg (27.0-32.0); MCHC 31.8 g/dL (32.0-37.0); MCV 85.7 FL (80.0-97.0); Mean Platelet Volume 11.6 FL (9.5-12.2); Monocytes # (A) 0.64 X 10*3/uL (0.20-1.00); Monocytes % (A) 9.4 %; NRBC Per 100 WBC 0 X 10*3/uL (0.00-0.01); Neutrophils # (A) 4.21 X 10*3/uL (1.80-7.70); Neutrophils % (A) 61.8 %; Platelet Count 180 X 10*3/uL (140-440); RBC 5.17 X 10*6/uL (4.40-5.60); RDW 14.8 % (11.5-14.5); WBC 6.82 X 10*3/uL (4.50-10.00)
== END | disposition home or self-care (01) ==
LOC: LABPAT 11:04
PROVIDERS: ATTEND Thoracic Surgery (Cardiothoracic Vascular Surgery)
DX: Z01.812 Encounter for preprocedural laboratory examination (principal); I35.0 Nonrheumatic aortic (valve) stenosis; Z79.899 Other long term (current) drug therapy; Z79.01 Long term (current) use of anticoagulants
CPT/HCPCS: 36415; 80053; 85025; 85610; 85730; 86850; 86900; 86901

== ENCOUNTER 2023-07-21 05:42 | Inpatient (IN) | payer MEDICARE, BC ==
[2023-07-21] MEDS ORDERED: PROTAMINE SULFATE 250 MG in EMPTY BAG 1 BAG IV PRN (06:00)
[2023-07-21] MEDS ORDERED: INSULIN REGULAR 100 UNIT in SODIUM CHLORIDE 0.9% 100 ML IV PRN (06:00)
[2023-07-21] MEDS ORDERED: TRANEXAMIC ACID 2,000 MG in SODIUM CHLORIDE 0.9% 80 ML IV PRN (06:00)
[2023-07-21] MEDS ORDERED: SODIUM CHLORIDE 0.9% 500 ML 500 ML INTRAARTER PRN (06:00)
[2023-07-21] MEDS ORDERED: ELECTROLYTE-A SOLUTION 1,000 ML with POTASSIUM CHLORIDE 100 MEQ, MAGNESIUM SULFATE 16 M... IV PRN (06:00)
[2023-07-21] MEDS ORDERED: CLEVIDIPINE BUTYRATE 25 MG in EMPTY BAG 1 BAG IV PRN (06:00)
[2023-07-21] MEDS ORDERED: NITROGLYCERIN-D5W PMX 25 MG/250 ML BTL IV PRN (06:00)
[2023-07-21 06:34] LABS: Glucose,Whole Blood 107 mg/dL (70-110)
[2023-07-21 06:37] LABS: Glucose,Whole Blood 124 mg/dL (70-110)
[2023-07-21] MEDS: SODIUM CHLORIDE 0.9% 1,000 ML IV ONE (06:48)
[2023-07-21] MEDS: ATORVASTATIN 10 MG TAB PO ONE (06:51)
[2023-07-21] MEDS: CLOPIDOGREL 75 MG TAB PO ONE (06:51)
[2023-07-21] MEDS: METOPROLOL TARTRATE 25 MG TAB PO ONE (06:51)
[2023-07-21] MEDS ORDERED: NEOSTIGMINE 1 MG/ML 10 ML VIAL ONE (07:45)
[2023-07-21] MEDS ORDERED: ROCURONIUM 10 MG/ML (5 ML VIAL) IV ONE (07:45)
[2023-07-21] MEDS ORDERED: ePHEDrine 50 MG/ML 1 ML VIAL ONE (07:45)
[2023-07-21] MEDS ORDERED: MIDAZOLAM 2 MG/2 ML VIAL ONE (07:45)
[2023-07-21] MEDS ORDERED: HEPARIN SODIUM,PORCINE 10,000 UNIT/ML 1 ML VIAL ONE (07:45)
[2023-07-21] MEDS ORDERED: PROPOFOL 10 MG/ML 20 ML VIAL IV ONE (07:45)
[2023-07-21] MEDS ORDERED: PROTAMINE SULFATE 10 MG/ML 5 ML VIAL ONE (07:45)
[2023-07-21] MEDS ORDERED: fentaNYL (PF) 50 MCG/ML 2 ML AMP ONE (07:45)
[2023-07-21] MEDS ORDERED: SUCCINYLCHOLINE CHLORIDE 200 MG/10 ML VIAL IV ONE (07:45)
[2023-07-21] MEDS ORDERED: LIDOCAINE 1% INJ 10MG/ML (20 ML MDV) ONE (07:45)
[2023-07-21] MEDS ORDERED: GLYCOPYRROLATE 0.2 MG/ML 2 ML VIAL ONE (07:45)
[2023-07-21] MEDS ORDERED: HYDROmorphone (PF) 1 MG/ML ONE (07:45)
[2023-07-21] MEDS: LIDOCAINE 1% INJ 10MG/ML (20 ML MDV) SQ ONE (08:22)
[2023-07-21] MEDS: IOPAMIDOL-370 100ML BTL INJ ONE (09:24)
[2023-07-21] MEDS ORDERED: Potassium Replacement Protocol 1 EACH MISC MISCELLANE PRN ×2 (09:33→18:53)
[2023-07-21] MEDS ORDERED: ONDANSETRON 4 MG/2 ML VIAL IVP PRN (09:33)
[2023-07-21] MEDS ORDERED: Magnesium Replacement Protocol 1 EACH MISC MISCELLANE PRN (09:33)
[2023-07-21] MEDS ORDERED: IPRATROPIUM-ALBUTEROL 3 ML NEB INHALATION PRN (09:33)
[2023-07-21] MEDS ORDERED: DEXTROSE 50% SYRINGE 50 ML IVP PRN ×2 (09:33)
[2023-07-21 09:57] LABS: Glucose,Whole Blood 120 mg/dL (70-110)
--- NOTE | 2023-07-21 10:02 | P.ANPRN ---
Procedure Note - Anesthesia - JOSÉ Intraop Pre Bypass JOSÉ Intraop - Anesthesia Indication: TAVR Date of Procedure: 07/21/23 Pre-operative Diagnosis: aortic stenosis Post-operative Diagnosis: s/p TAVR Surgeon: Alcon Fallon Left Ventricle: wnl Ejection Fraction: Normal Regional Wall Motion Abnormalities: None Left Ventricle Hypertrophy: No R. Ventricle Function: Normal Aortic Valve: trace AI, peak 50, mean 28 Anatomy: Trileaflet Aortic Stenosis: Moderate Aortic Regurgitation: Trace Mitral Stenosis: None Mitral Regurgitation: Trace Tricuspid Stenosis: None Tricuspid Regurgitation: Trace Pulmonic Stenosis: None Pulmonic Regurgitation: None R. Atrial Dilation: No R. Atrial PFO: No Left Atrium: JIGAR clear L. Atrial Dilation: No Aortic Dissection: No Aortic Calcification: None Plural Effusion: None
--- NOTE | 2023-07-21 10:04 | P.ANPRN ---
Procedure Note - Anesthesia - JOSÉ Intraop Post Bypass JOSÉ Intraop Post Bypass Procedure Performed: TAVR Left Ventricle: wnl Ejection Fraction: Normal Regional Wall Motion Abnormalities: None R. Ventricle Function: Normal Aortic Valve: no perivalvular leak, prosthetic valve in place. no AI, peak 8 mean 4 Mitral Valve: Unchanged Tricuspid: Unchanged Pulmonic: Unchanged Aortic Dissection: No
--- NOTE | 2023-07-21 10:05 | P.OP ---
Description of Procedure: Transcatheter Aoritc Valve Replacement Operative report PROCEDURE PERFORMED: 1. Percutaneous Aortic Valve Implantation using a 29 mm Ivet S3 Ultra. 2. Transesophageal echocardiography (performed by anesthesia) 3. Ultrasound guided access and repair of right femoral artery access site by Perclose closure device. 4. Placement of temporary pacemaker wire. 5. Aortic root angiography INDICATIONS: 1. 77 year-old with a history of severe symptomatic aortic valve stenosis when indexed for BSA. PERFORMING PHYSICIANS: 1. Goyo Mcfadden DO Interventional Cardiology 2. Merritt Macdonald MD Interventional Cardiology. 3. Alcon Fallon MD, Cardiothoracic Surgeon. SEDATION: General anesthesia provided by anesthesia, see separate note APPROACH: Right femoral artery via percutaneous approach PROCEDURE DESCRIPTION: The patient was discussed at valve clinic with multidisciplinary approach with cardiothoracic surgeon as well as crane oiler and thought better treated with TAVR. Risks, benefits, and alternatives of the procedure had been explained to the patient who understood the risks and agreed to proceed. After consents were obtained, patient was brought to the transcatheter aortic valve implantation room in the cardiac catheter finisher and inspector and general anesthesia was provided by the anesthesiologist (see separate report). a 6-Turkmen sheath was placed in the left common femoral vein and a temporary venous pacemaker was placed in the right ventricle. Pacing thresholds were achieved and adequate. Next the left femoral artery was accessed using a modified Seldinger technique, ultrasound guidance and micropuncture technique. A 6 Turkmen destination sheath was placed in the left femoral artery. Next, a 6-Turkmen pigtail catheter was advanced into the aorta and positioned in the aortic root, aortic root angiography was performed to determine optimal deployment angle. The right femoral artery was accessed using modified Seldinger technique, micropuncture technique and under direct ultrasound guidance. Femoral angiogram was done showing access in the common femoral artery and a 6Fr sheath was placed. Next preclose technique was performed using 2 Perclose. Next a 0.035 Safari wire was placed in the Aorta via a pigtail catheter. Over that the arteriotomy was serially dilated and a 14 Fr [place] sheath was placed. Next a 6F- AL1 catheter was advanced over a wire to the aortic root. A straight wire was advanced through the catheter and used to cross the severely stenotic valve. The AL1 was then exchanged for a 6Fr pigtail catheter and pressure measurements were obtained. The 0.035 Safari wire was then positioned in the apex. Next a 29 mm Ivet S3 Ultra valve was advanced. The valve was then positioned across the ao rtic valve and confirmed with aortic root angiography. The valve was then deployed in proper position using slow deployment and with rapid pacing in conjuncture with aortic root angiography. The delivery system was withdrawn back into the arch and an aortic root injection in conjunction with JOSÉ demonstrated a satisfactory result. There was trace para valvular leak. There was no evidence of any other significant abnormalities. The preclose Perclose was then deployed in the right femoral artery and hemostasis was achieved. A rim catheter was then advanced to the level of the iliac bifurcation via the left femoral access. Femoral angiogram was performed that showed no contrast leak. The left femoral angiogram demonstrated an arteriotomy in the common femoral artery and this was repaired using a 6F angioseal device with complete hemostasis. Patient did exhibit 3rd degree block with likely need for more permanent pacing and therefore right subclavian venous access was obtained and a temporary pacemaker was screwed in, performed by cardiothoracic surgery. Pacing threshholds were checked and deemed appropriate. The femoral TVP was removed and the venous sheath was removed with hemostasis achieved. The patient was then transported to the ICU in hemodynamically stable condition, requiring no pressor support. COMPLICATIONS: None CONCLUSION: 1. Implantaion of 29mm Ivet S3 Ultra transcatheter aortic valve via right femoral approach under JOSÉ and fluoro guidance with trace para valvular aortic regurgitation. 2. Placement of temporary pacemaker wire 3. Aortic Root Aortogram. RECOMMENDATIONS: The patient will be monitored in the ICU for hemodynamic and electrical stability.
[2023-07-21] MEDS: LACTATED RINGERS 1,000 ML IV SCH ×2 (10:19→19:44)
--- NOTE | 2023-07-21 10:21 | P.OP ---
Date of Procedure: 07/21/23 Preoperative Diagnosis: Symptomatic tricuspid aortic valve stenosis Postoperative Diagnosis: Same, complete heart block Procedure(s) Performed: Percutaneous transfemoral transcatheter aortic valve replacement with a 29 mm Denise IGNACIO 3 valve, right subclavian temporary venous pacemaker placement Implants: 29 mm IGNACIO 3 valve Anesthesia: GETA Surgeon: Alcon Fallon (Cardiovascular surgeon) Fiberglass Auto Body Repairer #1: Goyo Mcfadden (First bin packer) Fiberglass Auto Body Repairer #2: Merritt Macdonald (Second bin packer) Estimated Blood Loss (ml): 20 IV fluids (ml): 1,200 Urine output (ml): 0 Pathology: none sent Condition: stable Disposition: ICU Indications for Procedure: 77-year-old male with severe aortic stenosis by echocardiography and progressive symptomatology. His primary symptom is fatigue but recently he has become increasingly short of breath with activity. He has been followed in the high risk valve clinic was most recently seen last week at which time it was felt it was appropriate to proceed with transcatheter aortic valve replacement. Patient was scheduled for surgery. Operative Findings: Outflow tract was very horizontal. The valve was implanted at 8515 with no canting of the valve in the outflow tract. There was no significant gradient across the valve on completion of and there was no evidence of aortic insufficiency or paravalvular leak. Patient was in third-degree heart block on completion of the procedure. It was decided to place a subclavian temporary venous pacemaker lead in order to remove the temporary from the groin and allow the patient to sit up and ambulate. This proceeded without event and the lead was placed in the apex of the right ventricle without difficulty. Pacing threshold was 0.3 V. Description of Procedure: Patient was brought to the cardiac catheterization laboratory and placed supine on the table. General anesthesia was induced. JOSÉ probe was placed. Patient was appropriately positioned and prepped and draped. Bilateral femoral arterial access was obtained. On the left a long 6 Togolese sheath was advanced into the descending thoracic aorta and through this a pigtail catheter was advanced into the right coronary cusp. The left femoral vein was also cannulated and a 6 Togolese sheath was placed and a temporary venous pacer was advanced through this into the right ventricle and tested. Right femoral artery was cannulated and a 7 Togolese sheath was placed. This was removed and 2 Perclose devices were placed and then a 8 Togolese sheath was placed. Patient was heparinized and the 8 Togolese sheath in the right groin was upsized to a 16 E sheath over a stiff wire. ACT's were maintained greater than 250. Aortic valve was crossed from the right following a root injection through the pigtail in the left. Pigtail catheter was placed in the apex of the ventricle. Transvalvular gradients were measured. A 29 mm Denise IGNACIO 3 valve was prepared on the back table and loaded appropriately. Safari wire was placed to the apex of the ventricle and the pigtail catheter removed. Denise valve was advanced over the safari wire and after the getting the valve in the descending thoracic aorta of the loading device was removed. Balloon was pulled back into the valve stent. The valve was now guided around the aortic arch and across the aortic valve. Root angiography was used to appropriately position the valve and that it was deployed under rapid ventricular pacing with abdominal fluid volume. Valve was checked with JOSÉ and appeared to be in good position with no evidence of paravalvular leak. Delivery system was removed and a root angiogram demonstrated excellent position of the valve at 8515 with no canting. There was no evidence of aortic insufficiency. Heparin was reversed with protamine. Was noted the patient was in complete heart block and heart rates were down in the 30s to 40s. Discussion was held between cardiology and cardiac surgery. It was felt best to remove the groin pacing line and replace it with the subclavian lines of the patient could sit up and ambulate. Right groin arterial line was removed and the 2 Perclose devices were deployed with successful hemostasis. Completion angiography demonstrated good flow through the femoral system and no evidence of narrowing or leak. Left femoral arterial line was removed and sealed with a 7 Togolese Angio-Seal. Right subclavian vein was punctured after the majority of the protamine had been administered. 7 Togolese introducer was placed and through this a screw-in ventricular lead was advanced into the apex of the ventricle and screwed in. Temporary femoral venous pacer was removed under fluoroscopic guidance. Groin sheath for the femoral vein was removed and direct pressure was applied. Subclavian temporary pacer was checked and the pacing threshold was 0.2 V. Patient was paced at 60 bpm and a 5 V output. [place] sheath was removed and the lead was secured with 2-0 silk suture ligatures. The patient was awakened and transferred to the ICU in stable condition.
[2023-07-21 10:29] LABS: African American GFR (CKD) 66 (>60 ml/min/1.73 sqM); Anion Gap 7 mmol/L; Blood Urea Nitrogen 20 mg/dL (9-20); Calcium 8.7 mg/dL (8.4-10.2); Carbon Dioxide 26 mmol/L (22-30); Chloride 108 mmol/L (98-107); Glucose 124 mg/dL (74-99); Non-African American GFR(CKD) 57 (>60 ml/min/1.73 sqM); Potassium 3.1 mmol/L (3.5-5.1); Sodium 141 mmol/L (137-145)
[2023-07-21] MEDS: ACETAMINOPHEN TAB 325 MG TAB PO PRN (10:37)
--- NOTE | 2023-07-21 11:05 | XR ---
EXAMINATION TYPE: XR chest 1V portable DATE OF EXAM: 07/21/2023 HISTORY: Shortness of breath. COMPARISON: 08/24/2022 TECHNIQUE: Single view of the chest is submitted. FINDINGS: Demonstrated are scattered senescent parenchymal change. There is no evidence for focal infiltrate. The heart is stable. Hilar and mediastinal structures are within normal limits. Degenerative changes are seen of the dorsal spine. IMPRESSION: 1. Chronic changes without evidence for acute pulmonary disease.
[2023-07-21 11:23] LABS: Basophils % (A) 0 %; Eosinophils # (A) 0.2 k/uL (0-0.7); Eosinophils % (A) 3 %; HCT 39.8 % (39.0-53.0); HGB 12.8 gm/dL (13.0-17.5); Lymphocytes # (A) 1.8 k/uL (1.0-4.8); Lymphocytes % (A) 31 %; MCH 27.4 pg (25.0-35.0); MCHC 32.2 g/dL (31.0-37.0); Mean Platelet Volume 8.7; Monocytes # (A) 0.5 k/uL (0-1.0); Monocytes % (A) 8 %; Neutrophils # (A) 3.2 k/uL (1.3-7.7); Neutrophils % (A) 55 %; Platelet Count 134 k/uL (150-450); Poikilocytosis Slight; RBC 4.68 m/uL (4.30-5.90); RDW 15.2 % (11.5-15.5); WBC 5.9 k/uL (3.8-10.6)
[2023-07-21 11:52] LABS: Glucose,Whole Blood 125 mg/dL (70-110)
[2023-07-21] MEDS ORDERED: NON FORMULARY DRUG (Semaglutide [Ozempic] 0.25 MG/0.368 ML Pen.Injctr) SQ SCH (12:00)
[2023-07-21] MEDS: INSULIN ASPART (NovoLOG) 100 UNIT/ML VIAL SQ SCH (12:20)
[2023-07-21] MEDS: POTASSIUM CHLORIDE ER 20 MEQ TAB.ER PO SCH ×2 (12:32→20:20)
[2023-07-21] MEDS: IPRATROPIUM-ALBUTEROL 3 ML NEB INHALATION SCH (15:23)
[2023-07-21] MEDS: ceFAZolin 3 GM in SODIUM CHLORIDE 0.9% 100 ML IVPB SCH (16:26)
[2023-07-21] MEDS: HEPARIN SODIUM,PORCINE 5,000 UNIT/ML 1 ML VIAL SQ SCH (16:26)
[2023-07-21 16:38] LABS: Glucose,Whole Blood 122 mg/dL (70-110)
[2023-07-21] MEDS: ceFAZolin 3 GM in SODIUM CHLORIDE 0.9% 100 ML IVPB ONE (19:44)
[2023-07-21] MEDS: ASPIRIN 325 MG TAB PO ONE (19:44)
[2023-07-21 20:11] LABS: Glucose,Whole Blood 120 mg/dL (70-110)
[2023-07-21] MEDS: GABAPENTIN 300 MG CAP PO SCH (20:19)
[2023-07-21] MEDS: PANTOPRAZOLE 40 MG TABLET PO SCH (20:19)
[2023-07-21] MEDS: SENNOSIDES-DOCUSATE SODIUM 1 EACH TAB PO SCH (20:20)
[2023-07-21] MEDS: ATORVASTATIN 40 MG TAB PO SCH (20:20)
[2023-07-21] MEDS ORDERED: METOPROLOL SUCCINATE (ER) 50 MG TAB.ER.24H PO SCH (21:00)
[2023-07-22 06:17] LABS: Glucose,Whole Blood 130 mg/dL (70-110)
[2023-07-22 06:26] LABS: Basophils % (A) 1 %; Eosinophils # (A) 0.1 k/uL (0-0.7); Eosinophils % (A) 2 %; HCT 40.1 % (39.0-53.0); HGB 12.5 gm/dL (13.0-17.5); Lymphocytes # (A) 0.8 k/uL (1.0-4.8); Lymphocytes % (A) 11 %; MCH 27.1 pg (25.0-35.0); MCHC 31.3 g/dL (31.0-37.0); MCV 86.4 fL (80.0-100.0); Mean Platelet Volume 8.2; Monocytes # (A) 0.7 k/uL (0-1.0); Monocytes % (A) 9 %; Neutrophils # (A) 5.8 k/uL (1.3-7.7); Neutrophils % (A) 76 %; Platelet Count 123 k/uL (150-450); RBC 4.64 m/uL (4.30-5.90); RDW 15.3 % (11.5-15.5); WBC 7.6 k/uL (3.8-10.6)
[2023-07-22 06:33] LABS: Ionized Calcium 4.8 mg/dL (4.5-5.3)
[2023-07-22 06:47] LABS: ALT 69 U/L (4-49); AST 71 U/L (17-59); African American GFR (CKD) 77 (>60 ml/min/1.73 sqM); Alkaline Phosphatase 105 U/L (38-126); Anion Gap 6 mmol/L; Blood Urea Nitrogen 17 mg/dL (9-20); Calcium 8.9 mg/dL (8.4-10.2); Carbon Dioxide 25 mmol/L (22-30); Chloride 109 mmol/L (98-107); Glucose 136 mg/dL (74-99); Magnesium 1.8 mg/dL (1.6-2.3); Non-African American GFR(CKD) 67 (>60 ml/min/1.73 sqM); Potassium 3.4 mmol/L (3.5-5.1); Sodium 140 mmol/L (137-145); Total Protein 5.6 g/dL (6.3-8.2)
[2023-07-22] MEDS ORDERED: Potassium Replacement Protocol 1 EACH MISC MISCELLANE PRN (06:51)
[2023-07-22] MEDS ORDERED: ceFAZolin 1 GM in SODIUM CHLORIDE 0.9% IRRIG BTL 250 ML IRRIGATION PRN (07:00)
--- NOTE | 2023-07-22 08:01 | XR ---
EXAMINATION TYPE: XR chest 1V portable DATE OF EXAM: 07/22/2023 HISTORY: Shortness of breath. COMPARISON: 07/21/2023 TECHNIQUE: Single view of the chest is submitted. FINDINGS: Demonstrated are scattered senescent parenchymal change. There is no evidence for focal infiltrate. Status post TAPVR procedure. The heart is stable. Hilar and mediastinal structures are within normal limits. Degenerative changes are seen of the dorsal spine. IMPRESSION: 1. Chronic changes without evidence for acute pulmonary disease.
[2023-07-22] MEDS: SYMBICORT 80-4.5 MCG INHALER INHALATION SCH (08:16)
[2023-07-22] MEDS ORDERED: bisacodyL 10 MG SUPP RECTAL PRN (09:00)
[2023-07-22] MEDS ORDERED: MAGNESIUM HYDROXIDE 2,400 MG/30 ML CUP PO PRN (09:00)
[2023-07-22] MEDS ORDERED: NON FORMULARY DRUG (Canagliflozin [Invokana] 300 MG Tablet) PO SCH (09:00)
[2023-07-22] MEDS ORDERED: APIXABAN 5 MG TAB PO SCH (09:00)
[2023-07-22] MEDS: CHOLECALCIFEROL 25 MCG (1000 IU) TABLET PO SCH (09:11)
[2023-07-22] MEDS: lisinopriL 10 MG TAB PO SCH (09:11)
[2023-07-22] MEDS: ASPIRIN 81 MG PO SCH (09:11)
[2023-07-22] MEDS: POTASSIUM CHLORIDE ER 20 MEQ TAB.ER PO SCH ×2 (09:11→10:32)
[2023-07-22] MEDS: TAMSULOSIN 0.4 MG CAP.ER.24H PO SCH (09:11)
[2023-07-22] MEDS: MULTIVITAMINS, THERA 1 EACH TAB PO SCH (09:11)
[2023-07-22] MEDS: GABAPENTIN 300 MG CAP PO SCH (09:11)
[2023-07-22] MEDS: FUROSEMIDE 40 MG TAB PO SCH (09:12)
[2023-07-22] MEDS: CYANOCOBALAMIN 500 MCG TAB PO SCH (09:13)
[2023-07-22] MEDS: SODIUM CHLORIDE 0.9% 1,000 ML IV SCH ×2 (09:18)
[2023-07-22] MEDS ORDERED: ASPIRIN 81 MG PO PRN (09:18)
[2023-07-22 11:03] LABS: Glucose,Whole Blood 129 mg/dL (70-110)
--- NOTE | 2023-07-22 11:20 | CA ---
Transthoracic Echo Report Name: Alirio Pimentel Age: 77 Gender: M : 1945 Exam Date: 07/22/2023 07:39 Exam Location: [place] [facility] [facility] Ht (in): 72 Wt (lb): 308 Ordering Physician: Marybeth Paredes Attending/Referring Phys: [id number], Lena Cabin Crew Neva Heck RDCS Procedure CPT: Indications: post TAVR Cardiac Hx: Technical Quality: Technically difficult study Contrast 1: Definity Total Dose (mL): 1 Contrast 2: Total Dose (mL): MEASUREMENTS (Male / Female) Normal Values 2D ECHO LV Diastolic Diameter PLAX 5.5 cm 4.2 - 5.9 / 3.9 - 5.3 cm LV Systolic Diameter PLAX 4.0 cm IVS Diastolic Thickness 1.7 cm 0.6 - 1.0 / 0.6 - 0.9 cm LVPW Diastolic Thickness 1.5 cm 0.6 - 1.0 / 0.6 - 0.9 cm LV Relative Wall Thickness 0.6 RV Internal Dim ED PLAX 4.0 cm LVOT Diameter 2.4 cm LA Systolic Diameter LX 5.3 cm 3.0 - 4.0 / 2.7 - 3.8 cm LV Diastolic Volume MOD BP 97.9 cm??? 67 - 155 / 56 - 104 cm??? LV Systolic Volume MOD BP 27.1 cm??? 22 - 58 / 19 - 49 cm??? LV Ejection Fraction MOD BP 72.3 % >= 55 % LV Diastolic Volume MOD 4C 106.2 cm??? LV Systolic Volume MOD 4C 24.9 cm??? LV Ejection Fraction MOD 4C 76.6 % LV Diastolic Length 4C 7.4 cm LV Systolic Length 4C 6.0 cm LV Diastolic Volume MOD 2C 89.3 cm??? LV Systolic Volume MOD 2C 27.3 cm??? LV Ejection Fraction MOD 2C 69.4 % LV Diastolic Length 2C 7.5 cm LV Systolic Length 2C 6.5 cm LA Volume 72.6 cm??? 18 - 58 / 22 - 52 cm??? LA Volume Index 26.6 cm???/m??? 16 - 28 cm???/m??? M-MODE Aortic Root Diameter MM 3.4 cm DOPPLER AV Peak Velocity 222.1 cm/s AV Peak Gradient 19.7 mmHg AV Mean Velocity 176.8 cm/s AV Mean Gradient 14.5 mmHg AV Velocity Time Integral 50.2 cm LVOT Peak Velocity 89.4 cm/s LVOT Peak Gradient 3.2 mmHg AV Area Cont Eq pk 1.8 cm??? MV Area PHT 3.9 cm??? Mitral E Point Velocity 88.1 cm/s Mitral A Point Velocity 50.9 cm/s Mitral E to A Ratio 1.7 MV Deceleration Time 194.2 ms TR Peak Velocity 261.4 cm/s TR Peak Gradient 27.3 mmHg Right Ventricular Systolic Press 35.0 mmHg FINDINGS Left Ventricle Left ventricular ejection fraction is estimated at 50-55 %. Left ventricular cavity size normal. Moderate concentric left ventricular hypertrophy. Right Ventricle Moderate right ventricular dilatation. Mild pulmonary hypertension. Right Atrium Right atrium not well visualized. Left Atrium Severely increased left atrial diameter. Moderately increased left atrial volume. Mildly increased left atrial area. Mitral Valve Mitral valve thickened. Mitral annular calcification. No mitral stenosis or prolapse. Trace mitral regurgitation. Aortic Valve Normally functioning bioprosthetic aortic valve without stenosis with a peak velocity of 2.2 m/s, peak gradient 20 mmHg, mean gradient 15 mmHg, and estimated aortic valve area of 1.8cm???. No perivalvular regurgitation, no valvular regurgitation. Tricuspid Valve Structurally normal tricuspid valve. Mild tricuspid regurgitation. Pulmonic Valve Pulmonic valve not well visualized. No pulmonic regurgitation. Pericardium No pericardial effusion. Aorta Normal size aortic root and proximal ascending aorta. CONCLUSIONS Normal LV size with moderate concentric LVH preserved contractility. Mild right ventricular dilatation. Significant enlargement of left atrium. Mitral annular calcification and trivial mitral regurgitation. Aortic valve is a bioprosthetic 1 stable with a mean gradient of 15 and no evidence of any perivalvular regurgitation. Mild tricuspid regurgitation no pericardial effusion Previewed by: Dr. Sean Sprague MD (Electronically Signed) Final Date: 22 July 2023 11:19
[2023-07-22 11:33] VITALS: BMI 43.9
[2023-07-22] MEDS: fentaNYL (PF) 50 MCG/1 ML VIAL IVP ONE ×3 (14:23→14:52)
[2023-07-22] MEDS: MIDAZOLAM 2 MG/2 ML VIAL IVP ONE ×3 (14:23→15:03)
[2023-07-22] MEDS: LIDOCAINE 1% INJ 10MG/ML (20 ML MDV) SQ ONE (14:23)
[2023-07-22] MEDS: ceFAZolin 1,000 MG VIAL IVPB ONE (14:24)
[2023-07-22] MEDS: IOPAMIDOL-370 100ML BTL IVP ONE (14:24)
[2023-07-22] MEDS: HYDROmorphone 0.5 MG/0.5 ML SYRINGE IVP ONE ×2 (14:32→15:26)
--- NOTE | 2023-07-22 15:34 | P.PN ---
Subjective Progress Note Date: 07/22/23 Principal diagnosis: Symptomatic tricuspid aortic valve stenosis. Past medical history significant for obstructive sleep apnea without home CPAP use, hypertension, hyperlipidemia, diabetes mellitus type 2, obesity with a BMI of 43.9 kg/m, coronary artery disease status post CABG in 2019, paroxysmal atrial fibrillation on Eliquis as an outpatient basis for anticoagulation, 16 to 49% stenosis to his bilateral internal carotid arteries, pernicious anemia, asthma and is a lifetime non- smoker. POD #1 Percutaneous Aortic Valve Implantation using a 29 mm Ivet S3 Ultra, Transesophageal echocardiography (performed by anesthesia), Ultrasound guided access and repair of right femoral artery access site by Perclose closure device, Placement of temporary pacemaker wire, and aortic root angiography. Third-degree AV block post TAVR The patient was seen and examined today July 22, 2023 at his bedside in the intensive care unit. The patient is currently sitting up to the bedside chair, is awake, alert, oriented x 3 and is in no acute apparent distress. The patient denies any complaints of pain or shortness of breath at this time. Bedside telemetry is showing paced rhythm with underlying rhythm showing third-degree heart block heart rate in the 30s. The patient does get symptomatic when his pacemaker is turned down with complaints of headache. Oxygen saturations are 95% on room air. Bilateral groin sites are soft and nontender to palpate. He remains hemodynamically stable and is currently on no inotropic or pressor support. Transthoracic 2D echocardiogram was completed today which demonstrated a left ventricular ejection fraction estimated at 50 to 55%, no mitral valve stenosis or prolapse, trace mitral valve regurgitation, a normally functioning bioprosthetic aortic valve without stenosis with a peak velocity of 2.2 m/s, a peak gradient of 20 mmHg and a mean gradient of 15 mmHg. Aortic valve area estimated at 1.8 cm no perivalvular regurgitation and no valvular regurgitation, mild tricuspid regurgitation, no pulmonic regurgitation, no pericardial effusion and a normal size aortic root and proximal ascending aorta. Chest x-ray and laboratory results reviewed. Objective - Vital Signs Vital signs: Vital Signs Temp 98.0 F 07/22/23 12:00 Pulse 60 07/22/23 13:00 Resp 20 07/22/23 13:00 BP 127/55 07/22/23 13:00 Pulse Ox 96 07/22/23 13:00 FiO2 Intake & Output 07/21/23 07/22/2307/21/24 18:59 06:59 18:59 Intake Total 321 500 400 Output Total 800 600 575 Balance -479 -100 -175 Weight 146.8 kg 146.8 kg Intake: IV 321 400 Lactated Ringers 1,000 ml 300 @ 50 mls/hr IV .Q20H MARCEL Rx#:[id number] Pressure Bag 21 Sodium Chloride 0.9% 1, 300 000 ml @ 50 mls/hr IV . Q20H MARCEL Rx#:[id number] ceFAZolin 3 gm In Sodium 100 Chloride 0.9% 100 ml @ 100 mls/hr IVPB Q8HR MARCEL Rx#:[id number] Oral 500 Output: Urine 800 600 575 Straight 775 Other: Voiding Method Urinal Urinal Urinal # Voids 1 ABP, PAP, CO, CI - Last Documented Arterial Blood Pressure 128/47 - Exam CONSTITUTIONAL: Sitting up to the bedside chair in the intensive care unit, appears comfortable, cooperative, no apparent acute distress. HEENT: Neck is supple, no JVD, no lymphadenopathy. RESPIRATORY: Lungs sounds essentially clear throughout, diminished to her bilateral bases. Respirations are symmetrical and nonlabored. Currently on room air with oxygen saturations 95%. Strong cough. CARDIOVASCULAR: Regular rhythm and rate. S1 and S2 present, negative for S3, or gallop. Positive systolic murmur heard best to his left sternal border. Palpable peripheral pulses bilaterally. No calf pain or tenderness noted. Knee- high MESSI hose and sequential compression devices in place to his bilateral lower extremities. GASTROINTESTINAL: Abdomen soft, nontender, nondistended. Active bowel sounds present 4 quadrants. NPO at this time for possible permanent pacemaker placement. Passing flatus. No guarding or rigidity. GENITOURINARY: Continues to void. INTEGUMENTARY: Skin is warm and dry with no evidence of clubbing or cyanosis. Bilateral groin puncture sites clean and dry, soft and nontender to palpate. NEUROLOGIC: Cranial nerves II through XII intact. No focal deficits. MUSKULOSKELETAL: Able to move all extremities, strength equal bilaterally, generalized weakness. PSYCHIATRIC: Alert and oriented to person place and time, appropriate affect, intact judgment and insight. INVASIVE LINES AND TUBES: Right subclavian temporary pacemaker wire is secured in place, connected to bedside portable pacemaker generator on a VVI mode of 60 bpm. - Allied health notes Allied health notes reviewed: nursing - Labs CBC & Chem 7: 07/22/23 05:50 07/22/23 05:50 Labs: Abnormal Lab Results - Last 24 Hours (Table) 07/21/23 07/21/23 07/22/23 Range/Units 16:37 20:10 05:50 Hgb 12.5 L (13.0-17.5) gm/dL Plt Count 123 L (150-450) k/uL Lymphocytes # 0.8 L (1.0-4.8) k/uL Potassium (3.5-5.1) mmol/L Chloride (98-107) mmol/L Glucose (74-99) mg/dL POC Glucose (mg/dL) 122 H 120 H (70-110) mg/dL AST (17-59) U/L ALT (4-49) U/L Total Protein (6.3-8.2) g/dL Albumin (3.5-5.0) g/dL 07/22/23 07/22/23 07/22/23 Range/Units 05:50 06:15 11:02 Hgb (13.0-17.5) gm/dL Plt Count (150-450) k/uL Lymphocytes # (1.0-4.8) k/uL Potassium 3.4 L (3.5-5.1) mmol/L Chloride 109 H (98-107) mmol/L Glucose 136 H (74-99) mg/dL POC Glucose (mg/dL) 130 H 129 H (70-110) mg/dL AST 71 H (17-59) U/L ALT 69 H (4-49) U/L Total Protein 5.6 L (6.3-8.2) g/dL Albumin 3.0 L (3.5-5.0) g/dL - Imaging and Cardiology Chest x-ray: report reviewed, image reviewed Assessment and Plan Assessment: Symptomatic tricuspid aortic valve stenosis, status post percutaneous aortic valve implantation using a 29 mm IVET S3 ultra Hypertension Hyperlipidemia Diabetes mellitus type 2 Obesity with a BMI of 43.9 kg/m Coronary artery disease status post CABG in 2019 Paroxysmal atrial fibrillation on Eliquis as an outpatient basis for anticoagulation Obstructive sleep apnea without home CPAP use Pernicious anemia Asthma Bilateral internal carotid artery stenosis 16 to 49% Lifetime non-smoker Third-degree heart block post TAVR, status post placement of temporary pacemaker wire Plan: Continue to hold Eliquis in anticipation for permanent pacemaker placement today. Patient remains in third-degree AV block, keep right subclavian temporary pacemaker wire in place. Patient remains n.p.o. for pacemaker placement. Encourage use of incentive spirometry 10 times every hour while awake. Out of bed for all meals, increase activity as tolerated. Continue low-dose aspirin, statin and continue to hold beta-car secondary to third-degree AV heart block. Patient reminded to hold both groins, with coughing laughing and sneezing. Transthoracic 2D echocardiogram results reviewed. No straining, including for bowel movements. Use of stool softeners if necessary. Pain control per current as needed orders. Daily weights. More recommendations to follow based on patient's clinical course. Time with Patient: Greater than 30
[2023-07-22] MEDS: ceFAZolin 1,000 MG, DEXAMETHASONE SOD PHOS (MDV) 20 MG in SODIUM CHLORIDE 0.9% 1,000 ML IRRIGATION ONE (16:02)
[2023-07-22] MEDS: SODIUM CHLORIDE 0.9% 1,000 ML IV ONE (16:17)
[2023-07-22 16:40] LABS: Glucose,Whole Blood 113 mg/dL (70-110)
[2023-07-22] MEDS ORDERED: HYDROmorphone 0.5 MG/0.5 ML SYRINGE IVP PRN (16:46)
--- NOTE | 2023-07-22 17:07 | XR ---
EXAMINATION TYPE: XR chest 1V portable DATE OF EXAM: 07/22/2023 HISTORY: Shortness of breath. COMPARISON: 07/22/2023 TECHNIQUE: Single view of the chest is submitted. FINDINGS: Demonstrated are scattered senescent parenchymal change. Dual-lead pacer is noted to be in place. Le ads are located within the right atrium and right ventricle respectively. There is no evidence for focal infiltrate. The heart is stable. Hilar and mediastinal structures are within normal limits. Degenerative changes are seen of the dorsal spine. IMPRESSION: 1. Chronic changes without evidence for acute pulmonary disease.
[2023-07-22] MEDS: HEPARIN SODIUM,PORCINE 5,000 UNIT/ML 1 ML VIAL SQ SCH (17:14)
[2023-07-22] MEDS: NON FORMULARY DRUG (Semaglutide [Ozempic] 0.25 MG/0.368 ML Pen.Injctr) SQ SCH (17:14)
[2023-07-22] MEDS: ceFAZolin 3 GM in SODIUM CHLORIDE 0.9% 100 ML IVPB SCH (17:22)
[2023-07-22 19:57] LABS: Glucose,Whole Blood 133 mg/dL (70-110)
--- NOTE | 2023-07-22 20:45 | CE ---
CARDIAC ELECTROPHYSIOLOGY REPORT PROCEDURE PERFORMED: Permanent dual-chamber pacemaker from left infraclavicular approach. PERFORMED BY: Dr. Binaca Sprague. ANESTHESIA: Moderate conscious sedation time was 104 minutes. The patient was administered Versed, fentanyl and Dilaudid. Oxygen saturation, hemodynamics, and EKG were monitored closely. CLINICAL INFORMATION: Mr. Alirio Pimentel is a 77-year-old morbidly obese patient with a known history of CAD with prior bypass surgery, morbid obesity, hypertension, hyperlipidemia, and type 2 diabetes mellitus. He has been having increasing shortness of breath and noninvasive evaluation of his aortic valve has suggested that he developed progressively worse aortic stenosis and he was brought in electively for a percutaneous aortic valve implant that was performed yesterday uneventfully with a very good outcome. However, postprocedure, the patient developed a complete heart block requiring a backup temporary pacemaker at 60 beats per minute. Given the fact he has significant aortic valvular and aortic ring calcification, he was advised to have a dual-chamber pacemaker. I discussed with the patient rationale, risks, benefits, and options. He understood all details and wished to proceed with the procedure. PROCEDURE NOTE: This patient already had a temporary screw-in pacemaker from the right subclavian approach. This was the paced rhythm that he was on. There were not much underlying ventricular beats. He had a complete heart block. Under strict aseptic precautions and local anesthesia using a micropuncture needle technique, I gained access into the left axillary vein. A linear 3-4 cm incision was made medial and parallel to the left deltopectoral groove. Dissection was performed with the cautery until the level of the fascia. A pocket was then made. An antibiotic sponge was left in the pocket. I then obtained another access point medial to the previous one under fluoroscopic guidance into the left axillary vein. Two wires were kept in the superior vena cava. Under fluoroscopic guidance, a 7-Sinhala introducer was placed over one of the wires. A ventricular lead was then advanced and positioned in the apical septum of the right ventricle. A good position was secured. Good thresholds and sensitivities were obtained. The lead was screwed into the underlying muscle with a 0 silk. Good sensitivities and thresholds were obtained. The lead was checked at 10 V pacing and both in INDONESIAN and LAGUERRE projection. Lead position was good. Subsequently, I advanced over the next wire a 7-Sinhala introducer and through this, I advanced atrial lead and this was positioned in the right atrium in a very good position with good P waves and thresholds. The lead was also screwed in. After securing good numbers and checking a 10 V pacing and also visualizing the lead in LAGUERRE and INDONESIAN projection, the lead was then secured to the underlying muscle with 0 silk suture. The pocket was then thoroughly irrigated with antibiotic. An antibiotic sponge was left for 20 minutes in the pocket. A pulse generator was then attached to both atrial and ventricular leads after verifying the lead numbers. The pulse generator was then secured in the line of the incision to the underlying muscle. The pocket was then closed in 3 layers with 2-0, 3- 0, and 4-0 Vicryl. Good hemostasis was achieved. The patient tolerated the procedure well. Under fluoroscopy, the temporary pacemaker was screwed out and taken out and pressure applied over the subclavian access site. 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 The lead is Jaleesa XT DR LAUREANO Herrera. Model number is W1DR01, serial number [id number]. Atrial lead veterinary science teacher Medtronic, serial number [id number]. Lead is model 5076-52. The ventricular lead was veterinary science teacher Medtronic, model is 5076-58, serial number [id number]. The atrial lead threshold was 0.5 V at 0.4 milliseconds. The P waves were 3.8 mV. The impedance was 475 ohms. The right ventricular lead threshold was 0.5 V at 0.4 milliseconds. The impedance was 570 ohms. The paced R-waves were about 5.5 to 6.5 mV. The pacemaker settings were in a mode of DDD, lower rate of 55 beats per minute, high rate of 110 beats per minute. AV delay paced was 220 milliseconds. Sensed AV delay was 190 milliseconds. The patient will have a portable chest x-ray today and a two-view chest x-ray tomorrow. The procedure went off uneventfully. Details were discussed with the patient as well as his and he was sent to the ICU in a stable condition and the report given to the nurse. SOMMER / STAR: [id number] /
[2023-07-22] MEDS: ACETAMINOPHEN TAB 325 MG TAB PO PRN (23:43)
[2023-07-23 05:14] LABS: HCT 37.3 % (39.0-53.0); HGB 12.1 gm/dL (13.0-17.5); MCH 27.8 pg (25.0-35.0); MCHC 32.5 g/dL (31.0-37.0); MCV 85.5 fL (80.0-100.0); Mean Platelet Volume 8.4; Platelet Count 108 k/uL (150-450); RBC 4.36 m/uL (4.30-5.90); RDW 15.3 % (11.5-15.5); WBC 7.4 k/uL (3.8-10.6)
[2023-07-23 05:24] LABS: African American GFR (CKD) 72 (>60 ml/min/1.73 sqM); Anion Gap 5 mmol/L; Blood Urea Nitrogen 14 mg/dL (9-20); Calcium 8.5 mg/dL (8.4-10.2); Carbon Dioxide 25 mmol/L (22-30); Chloride 110 mmol/L (98-107); Glucose 118 mg/dL (74-99); Non-African American GFR(CKD) 62 (>60 ml/min/1.73 sqM); Potassium 3.2 mmol/L (3.5-5.1); Sodium 140 mmol/L (137-145)
[2023-07-23 06:21] LABS: Glucose,Whole Blood 121 mg/dL (70-110)
--- NOTE | 2023-07-23 07:41 | XR ---
EXAMINATION TYPE: XR chest 2V DATE OF EXAM: 07/23/2023 COMPARISON: 07/22/2023 HISTORY: Shortness of breath TECHNIQUE: Frontal and lateral views of the chest are obtained. FINDINGS: Scattered senescent parenchymal changes noted. Hyperinflation compatible with COPD. No evidence for infiltrate. No evidence for atelectasis. Dual lead pacer in place with distal leads within the right atrium and right ventricle. No evidence f or pneumothorax. Heart size is stable. Mediastinal structures are stable and grossly unremarkable. No evidence for hilar prominence. Degenerative changes dorsal spine. IMPRESSION: 1. No evidence for acute pulmonary disease.
[2023-07-23] MEDS: NON FORMULARY DRUG (Canagliflozin [Invokana] 300 MG Tablet) PO SCH (08:47)
[2023-07-23] MEDS: METOPROLOL SUCCINATE (ER) 50 MG TAB.ER.24H PO SCH (09:17)
--- NOTE | 2023-07-23 11:12 | P.DS ---
Providers Date of admission: 07/21/23 05:42 Expected date of discharge: 07/23/23 Attending physician: Goyo Mcfadden DO Consults: 07/16/23 10:33 Consult to Anesthesia Routine Consulting Provider: Anesthesia,Services Consult Reason/Comments: Cardiac Surgery Pre-Op 07/21/23 09:17 Consult Physician Routine Consulting Provider: Alcon Fallon Consult Reason/Comments: TAVR Do you want consulting provider notified?: Already Contacted Primary care physician: Triny Olmstead Hospital Course: MEDICAL HISTORY: Calcified aortic valve with severe symptomatic aortic valve stenosis when indexed for BSA, NYHA III Hypertension Hyperlipidemia Diabetes mellitus type 2 Obesity with a BMI of 43.9 kg/m Coronary artery disease status post CABG in 2019 Paroxysmal atrial fibrillation on Eliquis as an outpatient basis for anticoagulation Obstructive sleep apnea without home CPAP use Pernicious anemia Asthma Bilateral internal carotid artery stenosis 16 to 49% Lifetime non-smoker Third-degree heart block post TAVR PROCEDURE: Percutaneous aortic valve implantation using a 29 mm Ivet S3 under JOSÉ and fluoroscopy guidance Transesophageal echocardiography performed by anesthesia Ultrasound-guided access and repair of right femoral artery access site by Perclose closure device Placement of temporary pacemaker wire Aortic root angiography Permanent dual-chamber Medtronic pacemaker from left infraclavicular approach HISTORY OF PRESENT ILLNESS: This is a 77-year-old gentleman who follows on an outpatient basis with Dr. Olmstead for primary care and Dr. Sprague for cardiology. He has a known history of severe aortic stenosis and has been symptomatic with increased exertional dyspnea as well as extreme fatigue. He had been referred to structural heart clinic for evaluation for transcatheter aortic valve replacement after heart catheterization and transesophageal echocardiogram were completed. Echocardiography demonstrated normal systolic function with EF 55%, aortic valve area 1.0 cm with a peak/mean gradient 54/29 mmHg. Heart catheterization showed patent CHE to the LAD as well as CHE to the diagonal artery. He was initially seen in May 2023 at the structural heart clinic but at that time it was unclear if all of the patient's symptomatology were strictly from aortic stenosis given his borderline numbers. Initial recommendation was for medication adjustment and reevaluation within the structural heart clinic which was completed July 11. Patient admitted no improvement in his symptoms, STS risk score was calculated along with incremental risk and the patient was felt to be high risk for surgical aortic valve replacement with repeat sternotomy, therefore transcatheter aortic valve replacement was recommended. The usual course of TAVR was discussed in detail the patient, risks and benefits were reviewed, shared decision making between cardiology, surgery, and the patient/family took place, and the patient consented to proceed with the procedure. HOSPITAL COURSE: The patient was brought to the hospital on 07/21/23, was taken to the extended stay area, prepared in the usual fashion, and subsequently taken to the cardiac catheterization laboratory where Dr. Mcfadden and Dr. Fallon completed TAVR procedure under general anesthesia with fluoroscopy and JOSÉ. The valve was deployed under rapid ventricular pacing and proceeded without event. At the end of the procedure there was mean gradient 4 mmHg, hemodynamics were felt to be acceptable, and there was no evidence of significant perivalvular leak. Upon completion of the procedure the patient was extubated and was transferred to the cardiovascular intensive care unit where he was recovered and monitored hemodynamically. Unfortunately he developed a third-degree heart block at the end of the procedure which did not recover and he underwent permanent dual-chamber Medtronic pacemaker implantation on POD #1. His oxygen was titrated down, he was tolerating oral diet, his pain was controlled, pacemaker interrogation was normal, follow-up TTE demonstrated normal left ventricular systolic function with EF 50 to 55%, mean gradient 15 mmHg, and no paravalvular leak and he was ready to be discharged to home on postoperative day #2. He received written and verbal instruction regarding his medications, activity restrictions, signs and symptoms requiring physician notification, and follow-up appointments. Patient Condition at Discharge: Stable Plan - Discharge Summary Discharge Rx Participant: Yes New Discharge Prescriptions: New Sennosides-Docusate Sodium [Senokot-S] 2 each PO HS tab Acetaminophen Tab [Tylenol] 650 mg PO Q6HR PRN tab PRN Reason: Mild Pain (Scale 1 To 3) Continue Multivitamin [Men's Multi-Vitamin] 1 tab PO DAILY Tamsulosin HCl [Flomax] 0.4 mg PO DAILY Metoprolol Succinate (ER) [Toprol XL] 50 mg PO BID Pantoprazole [Protonix] 40 mg PO HS Atorvastatin [Lipitor] 40 mg PO HS Fluticasone/Vilanterol [Breo Ellipta 100-25 Mcg Inhaler] 1 puff INHALATION RT-DAILY Albuterol Sulfate [Albuterol Sulfate Hfa] 1 - 2 puff PO RT-Q4H PRN PRN Reason: Shortness Of Breath Cyanocobalamin [Vitamin B-12 Injection] 1,000 mcg SQ QMONTHLY Cholecalciferol [Vitamin D3 (25 Mcg = 1000 Iu)] 25 mcg PO DAILY Apixaban [Eliquis] 5 mg PO BID Gabapentin 600 mg PO HS Cyanocobalamin (Vitamin B-12) [Vitamin B-12] 5,000 mcg PO DAILY Gabapentin [Neurontin] 300 mg PO DAILY lisinopriL [Prinivil] 10 mg PO DAILY Furosemide [Lasix] 40 mg PO DAILY Semaglutide [Ozempic] 0.5 mg SQ WE Potassium Chloride [Klor-Con M20] 40 meq PO DAILY Canagliflozin [Invokana] 300 mg PO DAILY Aspirin 81 mg PO DAILY PRN PRN Reason: Per Protocol Discharge Medication List Multivitamin [Men's Multi-Vitamin] 1 tab PO DAILY 04/01/15 [History] Tamsulosin HCl [Flomax] 0.4 mg PO DAILY 10/09/18 [History] Metoprolol Succinate (ER) [Toprol XL] 50 mg PO BID 12/20/18 [History] Pantoprazole [Protonix] 40 mg PO HS 12/20/18 [History] Atorvastatin [Lipitor] 40 mg PO HS 09/22/20 [History] Cholecalciferol [Vitamin D3 (25 Mcg = 1000 Iu)] 25 mcg PO DAILY 09/22/20 [History] Apixaban [Eliquis] 5 mg PO BID 08/24/21 [History] Cyanocobalamin (Vitamin B-12) [Vitamin B-12] 5,000 mcg PO DAILY 05/07/22 [History] Gabapentin 600 mg PO HS 05/07/22 [History] Albuterol Sulfate [Albuterol Sulfate Hfa] 1 - 2 puff PO RT-Q4H PRN 07/14/22 [History] Fluticasone/Vilanterol [Breo Ellipta 100-25 Mcg Inhaler] 1 puff INHALATION RT- DAILY 07/14/22 [History] Gabapentin [Neurontin] 300 mg PO DAILY 07/14/22 [History] lisinopriL [Prinivil] 10 mg PO DAILY 08/24/22 [History] Canagliflozin [Invokana] 300 mg PO DAILY 07/15/23 [History] Cyanocobalamin [Vitamin B-12 Injection] 1,000 mcg SQ QMONTHLY 07/15/23 [History] Furosemide [Lasix] 40 mg PO DAILY 07/15/23 [History] Potassium Chloride [Klor-Con M20] 40 meq PO DAILY 07/15/23 [History] Semaglutide [Ozempic] 0.5 mg SQ WE 07/15/23 [History] Aspirin 81 mg PO DAILY PRN 07/21/23 [History] Acetaminophen Tab [Tylenol] 650 mg PO Q6HR PRN tab 07/23/23 [Rx] Sennosides-Docusate Sodium [Senokot-S] 2 each PO HS tab 07/23/23 [Rx] Follow up Appointment(s)/Referral(s): Sean Sprague MD [STAFF PHYSICIAN] - 07/28/23 3:00 pm (Your appointment 07/27 is for a groin check and device check. You also have a 30-day post TAVR echo and appointment with Dr. Sprague 09/22/23 @ 2:30 pm, and a 1 year post TAVR echo and appointment with Dr. Sprague 06/21/24 @ 2:30 pm) Triny Olmstead DO [Primary Care Provider] - As Needed Clinic,Structural Heart [NON-STAFF] - 09/22/23 2:00 pm (You have a 30-day post TAVR follow-up at the valve clinic September 22, 2023, you also have a 1 year post TAVR follow-up with the valve clinic June 21, 2024 at 2 PM) Ambulatory/Diagnostic Orders: Basic Metabolic Panel [LAB.AMB] Location: None Selected Basic Metabolic Panel [LAB.AMB] Location: None Selected Complete Blood Count w/diff [LAB.AMB] Location: None Selected Complete Blood Count w/diff [LAB.AMB] Location: None Selected Activity/Diet/Wound Care/Special Instructions: DISCHARGE INSTRUCTIONS: 1. No driving for 1 week, or until physician gives their ok. 2. No lifting, pushing, or pulling more than 5-10 pounds for 1 week. 3. Hold both groins when you cough or sneeze for the next 2 weeks. Bruising is common, but report increased swelling, pain or fever >101F 4. Shower daily. No pool, hot tub, or bathtub for 1 week 5. No powders, lotions, ointments on incisions. 6. No straining, including for bowel movements. Use stool softner if necessary 7. Stairs are not an issue. Go slowly, using handrail and take 1 step at a time. Ambulate several times daily 8. Continue pain control per as needed orders. 9. Take only the medications listed on your discharge form 10. Eat low salt (limited to 2 grams or 2000 milligrams) daily, avoid adding salt, avoid canned/processed foods 11. Take your weight daily in the morning and record, bring with you to your follow up appointments 12. Keep all follow up appointments. You will need a valve clinic appointment at 30 days and 1 year post procedure for follow up 13. You have been referred to and are expected to begin Cardiac Rehab in approximately 4 weeks. 14. You will need antibiotics prior to any dental work, including cleanings, and any surgeries to prevent Endocarditis (bacterial infection in your heart) For any questions or concerns please call your valve coordinators: Marybeth or Mark Anthony @ PATIENT EDUCATION MATERIAL Instructions following a heart rhythm device implant. 1. Keep dressing DRY for 5 DAYS. You may cover the area with Saran or Cling Wrap, prior to a shower. 2. The dressing will be removed in the Device Clinic at [facility]. Absorbable sutures were used to close the wound. 3. Avoid raising the left arm above the shoulder level. 4 week restriction 4. Avoid arm movements, like backscratching, rubbing the head, or pulling on a cord. 4 weeks restriction 5. Gentle range of motion movements of the shoulder, closest to the incision should be performed to avoid a frozen shoulder. (Pendulum exercises of the shoulder) 6. The opposite arm may be used freely. 7. Avoid driving for 7 days. 8. Avoid activities such as golfing, swimming, weed whacking, lifting more than 10 pounds weight, bowling, gymnastics and weight training/lifting. (6 weeks restriction) 9. Activities such as wood chopping with an axe, pull-ups in the gymnasium, power lifting, arc-welding, being close to home induction cooktops will always be a problem. 10. Arm sling is only a reminder not to raise the arm above the head. You do not need to keep the arm completely immobilized. Your free to move the arm and use it and for normal activities. In case of any problems, please call [facility], [place], @ [phone], Attention: Device Clinicc Discharge Disposition: HOME SELF-CARE
[2023-07-23 11:34] VITALS: BP 121/69
[2023-07-23 11:36] LABS: Glucose,Whole Blood 118 mg/dL (70-110)
[2023-07-23 12:57] VITALS: PULSE 88; RESP 19; TEMP 97.8
[2023-07-24] MEDS ORDERED: CYANOCOBALAMIN 500 MCG TAB PO SCH (09:00)
[2023-08-19] MEDS ORDERED: CYANOCOBALAMIN 1,000 MCG/ML 1 ML VIAL SQ SCH (09:00)
== END 2023-07-23 12:33 | disposition home or self-care (01) | DRG 267 ==
LOC: 2ORMAIN 05:42 → 2SICU 09:32
PROVIDERS: ADMIT Internal Medicine; ATTEND Internal Medicine
PROC: B24BZZ4 Ultrasonography of Heart with Aorta, Transesophageal (ICD-10-PCS; 2023-07-21)
PROC: B3101ZZ Fluoroscopy of Thoracic Aorta using Low Osmolar Contrast (ICD-10-PCS; 2023-07-21)
PROC: 5A1223Z Performance of Cardiac Pacing, Continuous (ICD-10-PCS; 2023-07-21)
PROC: 02RF38Z Replacement of Aortic Valve with Zooplastic Tissue, Percutaneous Approach (ICD-10-PCS; principal; 2023-07-21 08:00)
PROC: 0JH606Z Insertion of Pacemaker, Dual Chamber into Chest Subcutaneous Tissue and Fascia, Open Approach (ICD-10-PCS; 2023-07-22)
PROC: 02H63JZ Insertion of Pacemaker Lead into Right Atrium, Percutaneous Approach (ICD-10-PCS; 2023-07-22)
PROC: 02HK3JZ Insertion of Pacemaker Lead into Right Ventricle, Percutaneous Approach (ICD-10-PCS; 2023-07-22)
DX: I08.2 Rheumatic disorders of both aortic and tricuspid valves (principal); Z00.6 Encounter for examination for normal comparison and control in clinical research program; I44.2 Atrioventricular block, complete; Z68.41 Body mass index [BMI] 40.0-44.9, adult; I48.0 Paroxysmal atrial fibrillation; E11.9 Type 2 diabetes mellitus without complications; E66.9 Obesity, unspecified; I10 Essential (primary) hypertension; I65.23 Occlusion and stenosis of bilateral carotid arteries; J45.909 Unspecified asthma, uncomplicated; D51.0 Vitamin B12 deficiency anemia due to intrinsic factor deficiency; E78.5 Hyperlipidemia, unspecified; G47.33 Obstructive sleep apnea (adult) (pediatric); I25.10 Atherosclerotic heart disease of native coronary artery without angina pectoris; Z79.01 Long term (current) use of anticoagulants; Z95.1 Presence of aortocoronary bypass graft; Z79.82 Long term (current) use of aspirin; Z79.85 Long-term (current) use of injectable non-insulin antidiabetic drugs; Z79.891 Long term (current) use of opiate analgesic; Z79.899 Other long term (current) drug therapy
CPT/HCPCS: 33208; 33361; 71045; 71046; 80048; 80053; 82330; 83735; 84132; 85025; 85027; 93306; 93312; 93320; 93325; 94640

== ENCOUNTER → 2023-07-28 | Outpatient (CLI) | payer MEDICARE, BC ==
[2023-07-28 18:41] LABS: HCT 41.6 % (39.6-50.0); HGB 13.4 g/dL (13.0-17.0); MCH 27.6 pg (27.0-32.0); MCHC 32.2 g/dL (32.0-37.0); MCV 85.6 FL (80.0-97.0); Mean Platelet Volume 10.4 FL (9.5-12.2); NRBC Per 100 WBC 0 X 10*3/uL (0.00-0.01); Platelet Count 132 X 10*3/uL (140-440); RBC 4.86 X 10*6/uL (4.40-5.60); WBC 7.88 X 10*3/uL (4.50-10.00)
[2023-07-28 19:55] LABS: T4, Free (Free Thyroxine) 1.48 ng/dL (0.80-1.80)
== END | disposition home or self-care (01) ==
LOC: LABWHC1 15:54
PROVIDERS: ATTEND Internal Medicine Interventional Cardiology
DX: I25.10 Atherosclerotic heart disease of native coronary artery without angina pectoris (principal)
CPT/HCPCS: 36415; 84439; 84443; 85027

== ENCOUNTER → 2023-09-02 | Outpatient (CLI) | payer MEDICARE, BC ==
--- NOTE | 2023-09-02 14:46 | P.SLEEP ---
History of Present Illness DATE: 09/02/2023 CONSULTATION/NEW PATIENT EVALUATION HISTORY OF PRESENT ILLNESS/SLEEP-WAKE EVALUATION: 77-year-old gentleman had b een evaluated in the sleep center for possible obstructive sleep apnea hypopnea syndrome. Patient has history of obstructive sleep apnea diagnosed in the past by home sleep apnea test, after that he tried CPAP but was not able to use it. SLEEP SCHEDULE: Usually sleep schedule for about 9 hours per night. FALLING ASLEEP: No problems with falling asleep. DURING SLEEP: No clear snoring according to patient , but has episodes of heavy breathing. Positive history of nocturia twice and heartburn no history of hypnogogical hallucinations, sleep paralysis, or cataplexy. DURING THE DAY/WAKE STATE: In the morning patient wake up tired. [place] sleepiness scale is increased to 11. Usually patient does not take naps. PAST MEDICAL HISTORY: Coronary artery disease, hypertension, hyperlipidemia, acid reflux, BPH, back problems, diabetes mellitus. PAST SURGICAL HISTORY: Aortic valve replacement, permanent pacemaker insertion. MEDICATIONS: Please see below. SOCIAL HISTORY: Please see below. FAMILY HISTORY: Please see below. REVIEW OF SYSTEMS: Awakenings from sleep with nocturia, sleepiness during the day. No fevers. No double vision. No recent chest pain. No shortness of breath. No abdominal pain. No bleeding episodes. No blood in urine. No seizure episodes. PHYSICAL EXAMINATION: GENERAL: A pleasant patient without any distress. VITAL SIGNS: Please see below, weight 310 pounds, BMI 44.6. HEENT: PERRLA, EOMI. Evaluation of oropharynx showed tongue protrudes midline, low position of soft palate Mallampati 2, but short distance between soft palate and posterior pharyngeal wall. NECK: Supple. No JVD. Thyroid is not palpable. 18 inches in circumference. LUNGS: Clear to percussion and to auscultation. Good air exchange. No wheezing or rhonchi. HEART: S1, S2 regular. No murmurs, gallops or rubs. ABDOMEN: Soft and nontender. Bowel sounds are present. No organomegaly appreciated. EXTREMITIES: No clubbing or cyanosis. PROJECT DRILLING ENGINEER: Awake, alert, and oriented x3. Cranial nerves 2 to 7 intact. There is no fasciculation or atrophy noted. No focal deficits observed. ASSESSMENT: 1. Wide neck 18 inches in circumference, short distance between soft palate and posterior pharyngeal wall, history of obstructive sleep apnea by results of home sleep apnea test in another institution in the past, sleepiness with [place] Sleepiness Scale 11. Obstructive sleep apnea hypopnea syndrome. 2. Obesity, BMI 44.6. 3. Status post aortic valve replacement. 4. Hypertension. 5 coronary artery disease, status post CABG. 6 . Status post permanent pacemaker insertion. 7. Hyperlipidemia. 8. BPH. 9 . Acid reflux. 10. Diabetes mellitus. 11. Back problems. PLAN: 1. Polysomnography for evaluation of patient's breathing during sleep. 2. Following plan after reading sleep study. 3. Preferable position during sleep on the side. 4. No driving if patient feels any sleepiness. Patient is aware of civil and criminal liability for unsafe driving. 5. Sleep hygiene with regular sleep time for at least 7.5-8 hours. 6. Watching and losing weight. Thank you very much for referring this patient for consultation. Sincerely, Gregory Sr MD, PhD, FAASM. Diplomat of [employer], Sleep Medicine Board by [employer] [facility] [place] Past Medical History Past Medical History: Atrial Fibrillation, Asthma, Blood Disorder, Coronary Artery Disease (CAD), Cancer, CVA/TIA, Diabetes Mellitus, GERD/Reflux, Hyperlipidemia, Hypertension, Osteoarthritis (OA), Prostate Disorder, Sleep Apnea/CPAP/BIPAP, Vascular Disorder Additional Past Medical History / Comment(s): Hx skin cancer, post CABG A fib, TIA years ago, pernicious anemia with monthly injections, hiatal hernia, BPH, venous insufficiency, occasional lower leg/pedal edema, spinal stenosis, herniated disc L1, spinal cyst, chronic low back pain, rare neck pain, benign colon polyp, hx Covid 06/2019. unable to use CPAP History of Any Multi-Drug Resistant Organisms: None Reported Past Surgical History: Bowel Resection, Cholecystectomy, Coronary Bypass/CABG, Heart Catheterization, Hernia Repair, Joint Replacement Additional Past Surgical History / Comment(s): 10/2018 CABG 2 vessels, bilateral knee replacements, right done twice, bowel resection at age 12 yrs d/t obstruction, umbilical hernia repair, skin cancer removed from 3 spots, colonoscopy, back injections, bilateral cataract removals with lens implants. Past Anesthesia/Blood Transfusion Reactions: No Reported Reaction Past Psychological History: No Psychological Hx Reported Additional Psychological History / Comment(s): Pt resides with his spouse. Pt has had increased stress d/t spouse going thru health problems. He is independent. He has a glucometer. 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 Past Drug Use History: None Reported - Past Family History Father Family Medical History: Congestive Heart Failure (CHF), CVA/TIA Additional Family Medical History / Comment(s): at age 68. Brother(s) Family Medical History: Cancer, COPD, Diabetes Mellitus Additional Family Medical History / Comment(s): Heart problems. Mother Family Medical History: Deep Vein Thrombosis (DVT), Myocardial Infarction (NE) Additional Family Medical History / Comment(s): at 79 w/ NE. Medications and Allergies Home Medications Medication Instructions Recorded Confirmed Type Multivitamin [Men's Multi-Vitamin] 1 tab PO DAILY 04/01/15 09/02/23 History Tamsulosin HCl [Flomax] 0.4 mg PO DAILY 10/09/18 09/02/23 History Metoprolol Succinate (ER) [Toprol 50 mg PO BID 12/20/18 09/02/23 History XL] Pantoprazole [Protonix] 40 mg PO HS 12/20/18 09/02/23 History Atorvastatin [Lipitor] 40 mg PO HS 09/22/20 07/21/23 History Cholecalciferol [Vitamin D3 (25 25 mcg PO DAILY 09/22/20 07/21/23 History Mcg = 1000 Iu)] Apixaban [Eliquis] 5 mg PO BID 08/24/21 09/02/23 History Cyanocobalamin (Vitamin B-12) 5,000 mcg PO DAILY 05/07/22 07/21/23 History [Vitamin B-12] Gabapentin 600 mg PO HS 05/07/22 09/02/23 History Albuterol Sulfate [Albuterol 1 - 2 puff PO RT-Q4H PRN 07/14/22 07/21/23 History Sulfate Hfa] Fluticasone/Vilanterol [Breo 1 puff INHALATION RT-DAILY 07/14/22 07/21/23 H istory Ellipta 100-25 Mcg Inhaler] Gabapentin [Neurontin] 300 mg PO DAILY 07/14/22 09/02/23 History lisinopriL [Prinivil] 10 mg PO DAILY 08/24/22 09/02/23 History Canagliflozin [Invokana] 300 mg PO DAILY 07/15/23 09/02/23 History Cyanocobalamin [Vitamin B-12 1,000 mcg SQ QMONTHLY 07/15/23 07/21/23 History Injection] Furosemide [Lasix] 40 mg PO DAILY 07/15/23 07/21/23 History Potassium Chloride [Klor-Con M20] 40 meq PO DAILY 07/15/23 07/21/23 History Semaglutide [Ozempic] 0.5 mg SQ WE 07/15/23 09/02/23 History Aspirin 81 mg PO DAILY PRN 07/21/23 09/02/23 History Acetaminophen Tab [Tylenol] 650 mg PO Q6HR PRN tab 07/23/23 Rx Sennosides-Docusate Sodium 2 each PO HS tab 07/23/23 Rx [Senokot-S] Allergies Allergy/AdvReac Type Severity Reaction Status Date / Time azithromycin [From Zithromax] AdvReac Nausea & Verified 07/15/23 14:00 Vomiting Physical Exam Vitals: Vital Signs Temp Pulse Resp BP Pulse Ox 09/02/23 14:17 98.1 F 78 16 152/87 95 Intake and Output 09/01/23 09/02/23 09/02/23 22:59 06:59 14:59 Other: Weight 140.614 kg Sleep Note - Sleep Data ESS Total: 11 - Sleep Note Sleep Note: Temperature: 98.1 F Pulse Rate: 78 Respiratory Rate: 16 Blood Pressure: 152/87 SpO2: 95 Height: 5 ft 10 in Weight: 140.614 kg BMI: Neck Circumference: 70
[2023-09-02 15:05] VITALS: BP 152/87; PULSE 78; RESP 16; TEMP 98.1
== END ==
LOC: 3 N SLEEP 13:58
PROVIDERS: ATTEND Internal Medicine
DX: G47.33 Obstructive sleep apnea (adult) (pediatric) (principal); E66.9 Obesity, unspecified; I10 Essential (primary) hypertension; I25.10 Atherosclerotic heart disease of native coronary artery without angina pectoris; E78.5 Hyperlipidemia, unspecified; G47.10 Hypersomnia, unspecified; N40.0 Benign prostatic hyperplasia without lower urinary tract symptoms; K21.9 Gastro-esophageal reflux disease without esophagitis; E11.9 Type 2 diabetes mellitus without complications; M53.9 Dorsopathy, unspecified; Z68.41 Body mass index [BMI] 40.0-44.9, adult; Z95.1 Presence of aortocoronary bypass graft; Z95.0 Presence of cardiac pacemaker; Z95.2 Presence of prosthetic heart valve; Z88.1 Allergy status to other antibiotic agents; Z79.01 Long term (current) use of anticoagulants; Z79.85 Long-term (current) use of injectable non-insulin antidiabetic drugs; Z79.899 Other long term (current) drug therapy
CPT/HCPCS: 99211

== ENCOUNTER 2023-09-12 19:41 | Outpatient (CLI) | payer MEDICARE, BC ==
--- NOTE | 2023-09-15 11:22 | P.PCN ---
Description of Procedure: POLYSOMNOGRAPHY REPORT PROCEDURE(S)/DATE(S): Polysomnography 09/12/2023 CLINICAL: Patient has been seen in the sleep center for evaluation of obstructive sleep apnea-hypopnea syndrome. Please see my consultation. Sleep study has been done for evaluation of patient breathing during the sleep. PROCEDURE: The standard montage for clinical polysomnography included the electroencephalogram, the electrooculogram, the mentalis surface electromyography and Lead II cardiography. The respiratory battery consisted of measurements of nasal/buccal air flow, pressure transducer measurements from nose, thoracic and/or abdominal effort and intercostal surface electromyography. Video monitoring has been done to check for any parasomnia events. Nocturnal oxyhemoglobin saturations were obtained by finger oximetry. Step-taylor titration with positive airway pressure was utilized to control the respiratory events, if necessary. RESULTS: During the diagnostic sleep study sleep efficiency was decreased to 81.7%. Latency to sleep onset was prolonged to 38.5 min. Sleep architecture showed stage NI was significantly increased to 26.4%, Delta sleep was absent 0%, REM sleep was decreased to 9.2%. Respiratory channel showed 0 obstructive apneas, 0 mixed apneas, 0 central apneas, 52 hypopneas with lowest oxygen level 65%. Total apnea hypopnea index was 9.7, in rem sleep 28.5. Oxygen level was below normal for 21 minutes. Heart rate was in the range between 62 and 68, average 65. EMG showed 3.2 periodic limb movements per hour with 0.6 micro-arousals per hour. IMPRESSIONS: 1. Obstructive sleep apnea hypopnea syndrome with long oxygen desaturation, close to severe in REM sleep. 2. No significant periodic limb movements have been documented. 3 obesity, BMI 44.5. Please see other impressions from consultation PLAN: 1. The patient will have PAP titration for correction of respiratory abnormalities during the sleep. 2. Losing weight program. 3. Sleep hygiene with regular time in bed for at least 7-1/2 hours. 4. No driving if feeling sleepiness. Thank you very much for allowing me to participate in the management of your patient. Sincerely, Gregory Sr MD, PhD, FAASM. Diplomat of [place] [employer], Sleep Medicine Board by [place] [employer] [facility] [place]
== END 2023-09-13 05:40 | disposition home or self-care (01) ==
LOC: 3 N SLEEP 19:41
PROVIDERS: ATTEND Internal Medicine
DX: G47.33 Obstructive sleep apnea (adult) (pediatric) (principal); G47.36 Sleep related hypoventilation in conditions classified elsewhere; E66.9 Obesity, unspecified; Z68.41 Body mass index [BMI] 40.0-44.9, adult; Z88.1 Allergy status to other antibiotic agents
CPT/HCPCS: 95810

== ENCOUNTER → 2023-09-22 | Outpatient (CLI) | payer MEDICARE, BC ==
[2023-09-23 02:53] LABS: Basophils # (A) 0.06 X 10*3/uL (0.00-0.10); Basophils % (A) 0.5 %; Eosinophils # (A) 0.07 X 10*3/uL (0.04-0.35); Eosinophils % (A) 0.6 %; HGB 13.7 g/dL (13.0-17.0); MCH 26.5 pg (27.0-32.0); MCHC 30.4 g/dL (32.0-37.0); Mean Platelet Volume 11.6 FL (9.5-12.2); Monocytes # (A) 0.55 X 10*3/uL (0.20-1.00); Monocytes % (A) 4.7 %; NRBC Per 100 WBC 0 X 10*3/uL (0.00-0.01); Neutrophils # (A) 9.74 X 10*3/uL (1.80-7.70); Neutrophils % (A) 82.7 %; Platelet Count 115 X 10*3/uL (140-440); RBC 5.17 X 10*6/uL (4.40-5.60); RDW 15.8 % (11.5-14.5); WBC 11.78 X 10*3/uL (4.50-10.00)
[2023-09-23 03:29] LABS: BUN/Creat Ratio 15.23 Ratio (12.00-20.00); Blood Urea Nitrogen 19.8 mg/dL (9.0-27.0); Carbon Dioxide 25.6 mmol/L (21.6-31.8); Chloride 108 mmol/L (96-109); Glucose 112 mg/dL (70-110); Potassium 4.3 mmol/L (3.5-5.5); Sodium 145 mmol/L (135-145)
== END | disposition home or self-care (01) ==
LOC: LABWHC1 14:25
PROVIDERS: ATTEND Thoracic Surgery (Cardiothoracic Vascular Surgery)
DX: I35.1 Nonrheumatic aortic (valve) insufficiency (principal)
CPT/HCPCS: 36415; 80048; 85025

== ENCOUNTER 2023-11-28 17:35 | Inpatient (IN) | payer MEDICARE, BC ==
[2023-11-28] MEDS ORDERED: METOPROLOL SUCCINATE (ER) 50 MG TAB.ER.24H PO ONE (22:24)
[2023-11-28] MEDS ORDERED: PANTOPRAZOLE 40 MG TABLET PO ONE (22:25)
[2023-11-28] MEDS ORDERED: GABAPENTIN 300 MG CAP ONE (22:25)
[2023-11-28] MEDS ORDERED: APIXABAN 5 MG TAB ONE (22:25)
[2023-11-29] MEDS ORDERED: SODIUM CHLORIDE 0.9% 1,000 ML BAG ONE (07:30)
[2023-11-29] MEDS ORDERED: METOPROLOL TARTRATE 50 MG TAB ONE (09:14)
[2023-11-29] MEDS ORDERED: TAMSULOSIN 0.4 MG CAP.ER.24H PO ONE (09:14)
[2023-11-29] MEDS ORDERED: lisinopriL 10 MG TAB ONE (09:14)
[2023-11-29] MEDS ORDERED: APIXABAN 5 MG TAB ONE ×2 (09:14→20:33)
[2023-11-29] MEDS ORDERED: CHOLECALCIFEROL 25 MCG (1000 IU) TABLET ONE (09:15)
[2023-11-29] MEDS ORDERED: CYANOCOBALAMIN 500 MCG TAB ONE (09:15)
[2023-11-29] MEDS ORDERED: GABAPENTIN 300 MG CAP ONE ×2 (09:15→20:34)
[2023-11-29] MEDS ORDERED: MULTIVITAMINS, THERA 1 EACH TAB ONE (09:15)
[2023-11-29] MEDS ORDERED: ATORVASTATIN 40 MG TAB ONE (09:15)
[2023-11-29] MEDS ORDERED: DAPAGLIFLOZIN PROPANEDIOL 10 MG TABLET ONE (09:38)
[2023-11-29] MEDS ORDERED: METOPROLOL SUCCINATE (ER) 50 MG TAB.ER.24H PO ONE (20:33)
[2023-11-29] MEDS ORDERED: PANTOPRAZOLE 40 MG TABLET PO ONE (20:34)
[2023-11-30] MEDS ORDERED: METOPROLOL SUCCINATE (ER) 50 MG TAB.ER.24H PO ONE ×2 (09:57→22:39)
[2023-11-30] MEDS ORDERED: APIXABAN 5 MG TAB ONE ×2 (09:57→22:39)
[2023-11-30] MEDS ORDERED: TAMSULOSIN 0.4 MG CAP.ER.24H PO ONE (09:57)
[2023-11-30] MEDS ORDERED: METOPROLOL TARTRATE 50 MG TAB ONE (09:57)
[2023-11-30] MEDS ORDERED: lisinopriL 10 MG TAB ONE (09:58)
[2023-11-30] MEDS ORDERED: FOLIC ACID 1 MG TAB ONE (09:58)
[2023-11-30] MEDS ORDERED: GABAPENTIN 300 MG CAP ONE ×2 (09:58→22:40)
[2023-11-30] MEDS ORDERED: MULTIVITAMINS, THERA 1 EACH TAB ONE (09:58)
[2023-11-30] MEDS ORDERED: ATORVASTATIN 40 MG TAB ONE (09:58)
[2023-11-30] MEDS ORDERED: THIAMINE 100 MG TAB ONE (09:59)
[2023-11-30] MEDS ORDERED: CHOLECALCIFEROL 25 MCG (1000 IU) TABLET ONE (09:59)
[2023-11-30] MEDS ORDERED: CYANOCOBALAMIN 500 MCG TAB ONE (09:59)
[2023-11-30] MEDS ORDERED: DAPAGLIFLOZIN PROPANEDIOL 10 MG TABLET ONE (10:57)
[2023-11-30] MEDS ORDERED: ACETAMINOPHEN TAB 325 MG TAB ONE (11:34)
[2023-11-30] MEDS ORDERED: ONDANSETRON 4 MG/2 ML VIAL ONE (11:39)
[2023-11-30] MEDS ORDERED: PANTOPRAZOLE 40 MG TABLET PO ONE (22:39)
[2023-11-30] MEDS ORDERED: MECLIZINE 25 MG TAB ONE (22:50)
[2023-12-01] MEDS ORDERED: MECLIZINE 25 MG TAB ONE ×3 (06:41→21:47)
[2023-12-01] MEDS ORDERED: APIXABAN 5 MG TAB ONE ×2 (12:00→21:44)
[2023-12-01] MEDS ORDERED: MULTIVITAMINS, THERA 1 EACH TAB ONE (12:01)
[2023-12-01] MEDS ORDERED: lisinopriL 10 MG TAB ONE (12:01)
[2023-12-01] MEDS ORDERED: FOLIC ACID 1 MG TAB ONE (12:01)
[2023-12-01] MEDS ORDERED: PANTOPRAZOLE 40 MG TABLET PO ONE (12:01)
[2023-12-01] MEDS ORDERED: TAMSULOSIN 0.4 MG CAP.ER.24H PO ONE (12:01)
[2023-12-01] MEDS ORDERED: GABAPENTIN 300 MG CAP ONE ×2 (12:01→21:44)
[2023-12-01] MEDS ORDERED: ATORVASTATIN 40 MG TAB ONE (12:01)
[2023-12-01] MEDS ORDERED: METOPROLOL SUCCINATE (ER) 50 MG TAB.ER.24H PO ONE ×2 (12:01→21:44)
[2023-12-01] MEDS ORDERED: CHOLECALCIFEROL 25 MCG (1000 IU) TABLET ONE (12:02)
[2023-12-01] MEDS ORDERED: CYANOCOBALAMIN 500 MCG TAB ONE (12:02)
[2023-12-01] MEDS ORDERED: THIAMINE 100 MG TAB ONE (12:02)
[2023-12-01] MEDS ORDERED: DAPAGLIFLOZIN PROPANEDIOL 10 MG TABLET ONE (12:03)
[2023-12-01] MEDS ORDERED: SODIUM CHLORIDE 0.9% 1,000 ML BAG ONE (23:59)
[2023-12-02] MEDS ORDERED: APIXABAN 5 MG TAB ONE ×2 (08:42→23:10)
[2023-12-02] MEDS ORDERED: lisinopriL 10 MG TAB ONE (08:42)
[2023-12-02] MEDS ORDERED: ATORVASTATIN 40 MG TAB ONE (08:43)
[2023-12-02] MEDS ORDERED: DAPAGLIFLOZIN PROPANEDIOL 10 MG TABLET ONE (08:45)
[2023-12-02] MEDS ORDERED: METOPROLOL SUCCINATE (ER) 50 MG TAB.ER.24H PO ONE ×3 (08:46→23:10)
[2023-12-02] MEDS ORDERED: TAMSULOSIN 0.4 MG CAP.ER.24H PO ONE (08:46)
[2023-12-02] MEDS ORDERED: CHOLECALCIFEROL 25 MCG (1000 IU) TABLET ONE (08:46)
[2023-12-02] MEDS ORDERED: FOLIC ACID 1 MG TAB ONE (08:47)
[2023-12-02] MEDS ORDERED: THIAMINE 100 MG TAB ONE (08:48)
[2023-12-02] MEDS ORDERED: PANTOPRAZOLE 40 MG/10 ML VIAL ONE ×2 (08:48→23:10)
[2023-12-02] MEDS ORDERED: MULTIVITAMINS, THERA 1 EACH TAB ONE (08:48)
[2023-12-02] MEDS ORDERED: CYANOCOBALAMIN 500 MCG TAB ONE ×2 (08:48→08:58)
[2023-12-02] MEDS ORDERED: GABAPENTIN 300 MG CAP ONE ×2 (08:49→23:10)
[2023-12-02] MEDS ORDERED: MECLIZINE 25 MG TAB ONE ×2 (14:24→23:11)
[2023-12-02] MEDS ORDERED: ONDANSETRON 4 MG/2 ML VIAL ONE (23:10)
[2023-12-02] MEDS ORDERED: MECLIZINE 12.5 MG TAB ONE (23:59)
[2023-12-02] MEDS ORDERED: PEG 3350 (236 GM/BTL) + LYTES 4,000 ML BOTTLE ONE (23:59)
[2023-12-03] MEDS ORDERED: MECLIZINE 25 MG TAB ONE ×3 (05:29→20:02)
[2023-12-03] MEDS ORDERED: CYANOCOBALAMIN 500 MCG TAB ONE (10:02)
[2023-12-03] MEDS ORDERED: FOLIC ACID 1 MG TAB ONE (10:02)
[2023-12-03] MEDS ORDERED: DAPAGLIFLOZIN PROPANEDIOL 10 MG TABLET ONE (10:02)
[2023-12-03] MEDS ORDERED: MULTIVITAMINS, THERA 1 EACH TAB ONE (10:03)
[2023-12-03] MEDS ORDERED: TAMSULOSIN 0.4 MG CAP.ER.24H PO ONE (10:03)
[2023-12-03] MEDS ORDERED: METOPROLOL SUCCINATE (ER) 50 MG TAB.ER.24H PO ONE ×2 (10:03→19:57)
[2023-12-03] MEDS ORDERED: THIAMINE 100 MG TAB ONE (10:03)
[2023-12-03] MEDS ORDERED: CHOLECALCIFEROL 25 MCG (1000 IU) TABLET ONE (10:03)
[2023-12-03] MEDS ORDERED: lisinopriL 10 MG TAB ONE (10:03)
[2023-12-03] MEDS ORDERED: APIXABAN 5 MG TAB ONE (10:03)
[2023-12-03] MEDS ORDERED: PANTOPRAZOLE 40 MG/10 ML VIAL ONE ×2 (10:04→19:58)
[2023-12-03] MEDS ORDERED: ATORVASTATIN 40 MG TAB ONE (10:04)
[2023-12-03] MEDS ORDERED: GABAPENTIN 300 MG CAP ONE ×2 (10:07→19:58)
[2023-12-04] MEDS ORDERED: CYANOCOBALAMIN 500 MCG TAB ONE (09:10)
[2023-12-04] MEDS ORDERED: DAPAGLIFLOZIN PROPANEDIOL 10 MG TABLET ONE (09:10)
[2023-12-04] MEDS ORDERED: FOLIC ACID 1 MG TAB ONE (09:10)
[2023-12-04] MEDS ORDERED: THIAMINE 100 MG TAB ONE (09:11)
[2023-12-04] MEDS ORDERED: CHOLECALCIFEROL 25 MCG (1000 IU) TABLET ONE (09:11)
[2023-12-04] MEDS ORDERED: TAMSULOSIN 0.4 MG CAP.ER.24H PO ONE (09:11)
[2023-12-04] MEDS ORDERED: METOPROLOL SUCCINATE (ER) 50 MG TAB.ER.24H PO ONE ×2 (09:11→23:59)
[2023-12-04] MEDS ORDERED: MECLIZINE 25 MG TAB ONE ×3 (09:11→23:59)
[2023-12-04] MEDS ORDERED: ATORVASTATIN 40 MG TAB ONE (09:12)
[2023-12-04] MEDS ORDERED: MULTIVITAMINS, THERA 1 EACH TAB ONE (09:12)
[2023-12-04] MEDS ORDERED: PANTOPRAZOLE 40 MG/10 ML VIAL ONE (09:12)
[2023-12-04] MEDS ORDERED: lisinopriL 10 MG TAB ONE (09:12)
[2023-12-04] MEDS ORDERED: GABAPENTIN 300 MG CAP ONE ×2 (09:13→23:59)
[2023-12-04] MEDS ORDERED: ACETAMINOPHEN TAB 325 MG TAB PO PRN (22:16)
[2023-12-04] MEDS ORDERED: ONDANSETRON 4 MG/2 ML VIAL IVP PRN (22:17)
[2023-12-04] MEDS ORDERED: ALBUTEROL NEBULIZED 2.5 MG/3 ML INHALATION PRN (22:17)
[2023-12-04] MEDS ORDERED: MAGNESIUM CITRATE 296 ML BOTTLE ONE (23:59)
[2023-12-04] MEDS ORDERED: PANTOPRAZOLE 40 MG TABLET PO ONE (23:59)
[2023-12-05] MEDS: SODIUM CHLORIDE 0.9% 1,000 ML IV SCH (03:00)
[2023-12-05] MEDS ORDERED: PROPOFOL 10 MG/ML 20 ML VIAL IV ONE (08:00)
[2023-12-05] MEDS ORDERED: LIDOCAINE 1% INJ 10MG/ML (20 ML MDV) ONE (08:00)
[2023-12-05] MEDS: IV FLUID CONTINUATION 1,000 ML IV ONE ×2 (08:05→08:38)
[2023-12-05] MEDS: SODIUM CHLORIDE 0.9% 500 ML 500 ML IV ONE (08:45)
--- NOTE | 2023-12-05 09:02 | P.PCN ---
Date of Procedure: 12/05/23 Procedure(s) Performed: Brief history: Patient is a pleasant 78-year-old white male admitted to hospital with intermittent lower abdominal pain and diarrhea for the last several months duration. He is hence scheduled for an e upper endoscopy as well as colonoscopy evaluate further. Procedure performed: Esophagogastroduodenoscopy Colonoscopy with biopsy and snare polypectomy with biopsy Preoperative diagnosis: Abdominal pain and change in bowel habits /Intermittent chronic diarrhea Anesthesia: MAC Procedure: After informed consent was obtained from the patient was brought into the endoscopy unit and IV sedation was administered by anesthesia under continuous monitoring. Initially upper endoscopy was done. The Olympus GF 160 video endoscope was inserted inserted into the mouth and esophagus intubated without any difficulty and was gradually advanced into the stomach and duodenum and carefully examined. The bulb and second part of the duodenum appeared normal. Biopsies were done from the duodenum to evaluate for celiac disease. The scope was then withdrawn into the stomach adequately insufflated with air and upon careful examination the antrum and body, cardia and fundus is diffuse gastritis with thickened mucosal folds and diffuse erythema and several small gastric polyps all of which were biopsied.. The scope was then withdrawn into the esophagus. The GE junction was located at 40 cm to the incisors. It appeared regular with no erythema erosions or ulcerations. Rest of the esophagus appeared normal. Patient tolerated the procedure well. At this time the patient continued to remain sedation. Initial digital rectal examination was normal. Olympus CF 160 video colonoscope was then inserted into the rectum and gradually advanced to the cecum without any difficulty. Careful examination was performed as the scope was gradually being withdrawn. The prep was excellent. The cecum, appeared normal. Descending colon there were 4 polyps measuring between 4 to 5 mm in size all of which were removed by snare polypectomy. In the transverse colon there were a total of 6 polyps measuring between 5 mm to 1 cm in size all which were removed by snare polypectomy. In the descending colon there was a 6 mm polyp removed by cold snare polypectomy. In the sigmoid colon there was a 5 mm polyp removed by snare polypectomy. Random biopsies were done from the ascending and descending colon to rule out microscopic/collagenous colitis. Rest of the ascending colon, transverse colon, descending colon, sigmoid colon and rectum appeared normal. Retroflexion was performed in the rectum and no lesions were noted. Patient tolerated the procedure well. Impression: 1. Upper endoscopy revealed diffuse severe gastritis involving the antrum and body of the stomach with thickened mucosal folds and small gastric polyps status post multiple biopsies 2. Colonoscopy revealed: 4 polyps and a; measuring between 4 to 5 mm in size status post polypectomy 6 polyps in the transverse colon measuring between 5 mm to 1 cm in size status post snare polypectomy 6 mm descending colon polyp status post polypectomy 5 mm sigmoid colon polyp status post snare polypectomy Scattered diverticulosis Recommendations: Findings of this examination were discussed with the patient as well as his family. He was advised to follow-up with the biopsy results. Resume Eliquis tonight. Advance diet as tolerated. He can be discharged home today. Outpatient follow-up in 2 to 3 weeks.
[2023-12-05] MEDS: PANTOPRAZOLE 40 MG/10 ML VIAL IVP SCH (10:02)
[2023-12-05] MEDS: TAMSULOSIN 0.4 MG CAP.ER.24H PO SCH (10:03)
[2023-12-05] MEDS: ATORVASTATIN 40 MG TAB PO SCH (10:03)
[2023-12-05] MEDS: THIAMINE 100 MG TAB PO SCH (10:03)
[2023-12-05] MEDS: CHOLECALCIFEROL 25 MCG (1000 IU) TABLET PO SCH (10:03)
[2023-12-05] MEDS: CYANOCOBALAMIN 500 MCG TAB PO SCH (10:03)
[2023-12-05] MEDS: GABAPENTIN 300 MG CAP PO SCH (10:04)
[2023-12-05] MEDS: lisinopriL 10 MG TAB PO SCH (10:04)
[2023-12-05] MEDS: MULTIVITAMINS, THERA 1 EACH TAB PO SCH (10:04)
[2023-12-05] MEDS: DAPAGLIFLOZIN PROPANEDIOL 10 MG TABLET PO SCH (10:04)
[2023-12-05] MEDS: MECLIZINE 25 MG TAB PO SCH (10:04)
[2023-12-05] MEDS: FOLIC ACID 1 MG TAB PO SCH (10:04)
[2023-12-05] MEDS: METOPROLOL SUCCINATE (ER) 50 MG TAB.ER.24H PO SCH (10:04)
[2023-12-05 11:00] VITALS: TEMP 97.7
[2023-12-05 11:01] VITALS: RESP 16
[2023-12-05 11:03] VITALS: BP 143/80; PULSE 69
--- NOTE | 2023-12-05 14:29 | P.DS ---
Providers Date of admission: 11/28/23 17:35 Attending physician: Damaris Parsons Consults: 12/04/23 17:02 Consult Physician Routine Consulting Provider: Goyo Mcfadden Consult Reason/Comments: NEAR SYNCOPE Do you want consulting provider notified?: Already Contacted 12/04/23 17:04 Consult Physician Routine Consulting Provider: Zaira Bryant Consult Reason/Comments: TIA Do you want consulting provider notified?: Already Contacted 12/04/23 17:05 Consult Physician Routine Consulting Provider: Verito Cedeno Consult Reason/Comments: DIARRHEA, BLACK STOOL, ABD PAIN Do you want consulting provider notified?: Already Contacted Primary care physician: Stated None Hospital Course: Final Diagnosis Dizziness due to positive orthostatic hypotension from diarrhea Antral gastritis Hx hypertension discharged with parameters for lisinopril Diabetes mellitus type 2 currently on ozempic Hx atrial fibrillation with underlying pacemaker Hx hyperlipidemia Coronary artery disease status post 2 vessel CABG Discharge Disposition Stable for discharge home. No longer reporting dizziness. Orthostatic changes are now negative. Hold parameters on the lisinopril for systolic less than 110 to hold for that dose. Follow up with his twisting frame operator DR. NASIM Sprague, GI Dr. Marley Cedeno, Endocrine Dr. Howell Repeat blood work 2 to 3 days. Continue protonix BID for one more week than continue daily. Hospital Course This is a pleasant 78-year-old male who follows a Dr. Weathers. Patient has a history of CABG, diabetes mellitus, atrial fibrillation and pacemaker patient came in with concern for dizziness and syncopal episode. He underwent a full cardiology and neurology workup patient was found to have positive orthostatic blood pressures he was given parameters for his lisinopril. Patient has had episodes of diarrhea intermittently was recently put on Ozempic by his keg raiser Dr. Howell. This may have contributed to his symptoms. He was evaluated by GI underwent EGD colonoscopy has significant antral gastritis and also diverticulosis. Polyps were removed and biopses taken from both upper and lower GI tract. His diarrhea has resolved at this time. He will continue on protonix BID for the next week and resume daily protonix. He is cleared to resume his eliquis later this evening. Please see medication reconciliation for a list of current medications. Thank you for allowing us to participate in the care of this patient. The impression and plan of care has been dictated by Kyra Cardenas, Nurse Practitioner as directed. Dr. Zunilda MD I have performed a history and physical examination and medical decision making of this patient, discussed the same with the dictator, and agree with the dictators assessment and plan as written, documented as a scribe. Based on total visit time, I have performed more than 50% of this visit. Patient Condition at Discharge: Stable Plan - Discharge Summary New Discharge Prescriptions: New Meclizine [Antivert] 25 mg PO TID PRN #15 tab PRN Reason: Vertigo Continue Multivitamin [Men's Multi-Vitamin] 1 tab PO DAILY Tamsulosin HCl [Flomax] 0.4 mg PO DAILY Metoprolol Succinate (ER) [Toprol XL] 50 mg PO BID Atorvastatin [Lipitor] 40 mg PO HS Fluticasone/Vilanterol [Breo Ellipta 100-25 Mcg Inhaler] 1 puff INHALATION RT-DAILY Albuterol Sulfate [Albuterol Sulfate Hfa] 1 - 2 puff PO RT-Q4H PRN PRN Reason: Shortness Of Breath Cyanocobalamin [Vitamin B-12 Injection] 1,000 mcg SQ QMONTHLY Sennosides-Docusate Sodium [Senokot-S] 2 each PO HS tab Cholecalciferol [Vitamin D3 (25 Mcg = 1000 Iu)] 25 mcg PO DAILY Apixaban [Eliquis] 5 mg PO BID Gabapentin 600 mg PO HS Cyanocobalamin (Vitamin B-12) [Vitamin B-12] 5,000 mcg PO DAILY Gabapentin [Neurontin] 300 mg PO DAILY lisinopriL [Prinivil] 10 mg PO DAILY Furosemide [Lasix] 40 mg PO DAILY Semaglutide [Ozempic] 0.5 mg SQ WE Potassium Chloride [Klor-Con M20] 40 meq PO DAILY Canagliflozin [Invokana] 300 mg PO DAILY Aspirin 81 mg PO DAILY PRN PRN Reason: Per Protocol Acetaminophen Tab [Tylenol] 650 mg PO Q6HR PRN tab PRN Reason: Mild Pain (Scale 1 To 3) Changed Pantoprazole [Protonix] 40 mg PO BID #44 tab Discharge Medication List Multivitamin [Men's Multi-Vitamin] 1 tab PO DAILY 04/01/15 [History] Tamsulosin HCl [Flomax] 0.4 mg PO DAILY 10/09/18 [History] Metoprolol Succinate (ER) [Toprol XL] 50 mg PO BID 12/20/18 [History] Atorvastatin [Lipitor] 40 mg PO HS 09/22/20 [History] Cholecalciferol [Vitamin D3 (25 Mcg = 1000 Iu)] 25 mcg PO DAILY 09/22/20 [History] Apixaban [Eliquis] 5 mg PO BID 08/24/21 [History] Cyanocobalamin (Vitamin B-12) [Vitamin B-12] 5,000 mcg PO DAILY 05/07/22 [History] Gabapentin 600 mg PO HS 05/07/22 [History] Albuterol Sulfate [Albuterol Sulfate Hfa] 1 - 2 puff PO RT-Q4H PRN 07/14/22 [History] Fluticasone/Vilanterol [Breo Ellipta 100-25 Mcg Inhaler] 1 puff INHALATION RT- DAILY 07/14/22 [History] Gabapentin [Neurontin] 300 mg PO DAILY 07/14/22 [History] lisinopriL [Prinivil] 10 mg PO DAILY 08/24/22 [History] Canagliflozin [Invokana] 300 mg PO DAILY 07/15/23 [History] Cyanocobalamin [Vitamin B-12 Injection] 1,000 mcg SQ QMONTHLY 07/15/23 [History] Furosemide [Lasix] 40 mg PO DAILY 07/15/23 [History] Potassium Chloride [Klor-Con M20] 40 meq PO DAILY 07/15/23 [History] Semaglutide [Ozempic] 0.5 mg SQ WE 07/15/23 [History] Aspirin 81 mg PO DAILY PRN 07/21/23 [History] Acetaminophen Tab [Tylenol] 650 mg PO Q6HR PRN tab 07/23/23 [Rx] Sennosides-Docusate Sodium [Senokot-S] 2 each PO HS tab 07/23/23 [Rx] Meclizine [Antivert] 25 mg PO TID PRN #15 tab 12/05/23 [Rx] Pantoprazole [Protonix] 40 mg PO BID #44 tab 12/05/23 [Rx] Follow up Appointment(s)/Referral(s): Sean Sprague MD [STAFF PHYSICIAN] - 1 Week Verito Cedeno MD [STAFF PHYSICIAN] - 1 Week Triny Weathers DO [REFERRING] - 1 Week Ambulatory/Diagnostic Orders: Basic Metabolic Panel [LAB.AMB] Location: None Selected Complete Blood Count w/diff [LAB.AMB] Time Frame: 3 Days, Location: None Selected Patient Instructions/Handouts: Chest Pain (DC), Gastritis (DC), Diverticulosis (DC), Vertigo (DC), Diverticulosis Diet (GEN) Activity/Diet/Wound Care/Special Instructions: Continue diet as tolerated. Follow up with Dr. Marley Cedeno in the office for biopsy results. Continue to hold lisinopril if your blood pressure is below 110s systolic to avoid any dizziness or lightheadedness Change positions slowly while going from sitting to standing. Repeat blood work in 2 to 3 days Follow up with your PCP early next week. Resume eliquis tonight. Discharge Disposition: HOME SELF-CARE
[2023-12-05] MEDS ORDERED: GABAPENTIN 300 MG CAP PO SCH (21:00)
[2023-12-10] MEDS ORDERED: OZEMPIC SQ SCH (09:00)
--- NOTE | 2023-12-20 15:58 | CT ---
Patient Alirio Pimentel ID [id number] Order # EXAMINATION TYPE: CT brain wo con DATE OF EXAM: 11/28/2023 COMPARISON: No comparison available on downtime PACS. INDICATION: Dizziness DLP: 1213.4 mGycm, Automated exposure control for dose reduction was used. CONTRAST: None CT of the brain is performed utilizing 3 mm thick sections through the posterior fossa and 3 mm thick sections through the remaining calvarium. Study is performed within 24 hours of arrival to the hosp ital. No abnormal hyperdensity is present to suggest an acute intracranial hemorrhage. No mass lesion is evident. No acute infarcts are evident. Ventricles and sulci are appropriate for the patient age. There is a retention cyst left maxillary sinus. Remaining paranasal sinuses clear. Mastoid air cells appear clear. IMPRESSION: 1. No acute intracranial process. Follow up MRI can be performed as clinically indicated.
--- NOTE | 2023-12-28 11:46 | CA ---
Transthoracic Echo Report Name: Alirio Pimentel Age: 78 Gender: M : 1945 Exam Date: 11/29/2023 08:20 Exam Location: [place] [facility] Ht (in): 71 Wt (lb): 300 Ordering Physician: Attending/Referring Phys: Field Sales Trainer Amy Anglin RDCS Procedure CPT: Indications: Cardiac Hx: Technical Quality: Technically difficult study Contrast 1: Definity Total Dose (mL): 2 Contrast 2: Total Dose (mL): MEASUREMENTS (Male / Female) Normal Values 2D ECHO LV Diastolic Diameter PLAX 5.8 cm 4.2 - 5.9 / 3.9 - 5.3 cm LV Systolic Diameter PLAX 4.0 cm IVS Diastolic Thickness 1.5 cm 0.6 - 1.0 / 0.6 - 0.9 cm LVPW Diastolic Thickness 1.3 cm 0.6 - 1.0 / 0.6 - 0.9 cm LV Relative Wall Thickness 0.5 LVOT Diameter 2.2 cm LV Diastolic Volume MOD BP 196.2 cm??? 67 - 155 / 56 - 104 cm??? LV Systolic Volume MOD BP 91.7 cm??? 22 - 58 / 19 - 49 cm??? LV Ejection Fraction MOD BP 53.2 % >= 55 % LV Cardiac Index MOD BP 2345.3 cm???/min???m??? LV Diastolic Volume MOD 4C 190.5 cm??? LV Systolic Volume MOD 4C 98.0 cm??? LV Ejection Fraction MOD 4C 48.6 % LV Cardiac Index MOD 4C 2078.3 cm???/min???m??? LV Diastolic Length 4C 9.1 cm LV Systolic Length 4C 8.2 cm LV Diastolic Volume MOD 2C 188.3 cm??? LV Systolic Volume MOD 2C 75.2 cm??? LV Ejection Fraction MOD 2C 60.0 % LV Cardiac Index MOD 2C 2538.3 cm???/min???m??? LV Diastolic Length 2C 8.4 cm LV Systolic Length 2C 7.2 cm LA Volume 85.3 cm??? 18 - 58 / 22 - 52 cm??? LA Volume Index 31.9 cm???/m??? 16 - 28 cm???/m??? Ascending Aorta Diameter 4.1 cm DOPPLER AV Peak Velocity 200.1 cm/s AV Peak Gradient 16.0 mmHg AV Mean Velocity 158.3 cm/s AV Mean Gradient 10.7 mmHg AV Velocity Time Integral 46.4 cm LVOT Peak Velocity 123.0 cm/s LVOT Peak Gradient 6.1 mmHg LVOT Velocity Time Integral 23.9 cm LVOT Stroke Volume 88.0 cm??? LVOT Stroke Volume Index 35.1 ml/m??? LVOT Cardiac Index 1975.3 cm???/min???m??? AV Area Cont Eq vti 1.9 cm??? AV Area Cont Eq pk 2.3 cm??? MV Area PHT 3.7 cm??? Mitral E Point Velocity 47.5 cm/s Mitral A Point Velocity 72.3 cm/s Mitral E to A Ratio 0.7 MV Deceleration Time 205.6 ms PV Peak Velocity 104.0 cm/s PV Peak Gradient 4.3 mmHg FINDINGS Left Ventricle Left ventricular ejection fraction is estimated at 45-50 %. Moderately increased septal wall thickness. Moderately increased left ventricular diastolic volume. Lateral wall hypokinesis Right Ventricle Right ventricle not well visualized. Unable to estimate the right ventricular systolic pressure. Right Atrium Right atrium not well visualized. Left Atrium Mildly increased left atrial volume. Mildly increased left atrial area. Mitral Valve Mitral valve thickened. No mitral stenosis. No evidence for mitral valve prolapse. Mild mitral regurgitation.mitral annular calcification. Aortic Valve TAVR Bioprosthetic aortic valve without stenosis with a peak velocity of 2.0 m/s, peak gradient 16 mmHg, mean gradient 11 mmHg, and estimated aortic valve area of 1.9 cm???. Mild perivalvular regurgitation Tricuspid Valve Structurally normal tricuspid valve. No tricuspid stenosis. No tricuspid regurgitation. Pulmonic Valve Pulmonic valve not well visualized. No pulmonic stenosis. No pulmonic regurgitation. Pericardium No pericardial effusion. Aorta Aortic annulus normal. Ascending aorta mildly enlarged. CONCLUSIONS Technically difficult study. Definity ECHO contrast used for improved visualization of the endocardial borders (inadequate visualization of two or more contiguous segments). Mildly impaired left ventricular systolic function with segmental wall motion abnormality TAVR with mild perivalvular regurgitation Mild mitral regurgitation Previewed by: Dr. Muriel Meehan MD (Electronically Signed) Final Date: 29 November 2023 11:25
--- NOTE | 2023-12-28 18:38 | US ---
EXAMINATION TYPE: IR angio carotid cereb BILAT DATE OF EXAM: 11/29/2023 COMPARISON: NONE CLINICAL INDICATION: Unknown, old with history of ; TECHNIQUE: Carotid duplex ultrasound examination. Indirect Doppler criteria was utilized. FINDINGS: EXAM MEASUREMENTS: RIGHT: Peak Systolic Velocity (PSV) cm/sec ----- Right CCA: 125 ----- Right ICA: 76.9 ----- Right ECA: 125 ICA/CCA ratio: .75 RIGHT: End Diastole cm/sec ----- Right CCA: 18.2 ----- Right ICA: 21.2 ----- Right ECA: 22.1 LEFT: Peak Systolic Velocity (PSV) cm/sec ----- Left CCA: 110 ----- Left ICA: 86.6 ----- Left ECA: 110 ICA/CCA ratio: .81 LEFT: End Diastole cm/sec ----- Left CCA: 21.2 ----- Left ICA: 24.1 ----- Left ECA: 10.3 VERTEBRALS (direction of flow): Right Vertebral: antegrade Left Vertebral: antegrade Rhythm: wnl OCCUPATIONAL PSYCHOLOGIST NOTES: IMPRESSION: No sonographic evidence for hemodynamically significant stenosis. Criteria for Assigning % of Stenosis / Diameter reduction (Estimation based on the indirect measurements of the internal carotid artery velocities (ICA PSV). 1. Normal (no stenosis)=ICA PSV < 125 cm/s: ratio < 2.0: ICA EDV<40 cm/s. 2. Less than 50% stenosis=ICA PSV < 125 cm/s: ratio < 2.0: ICA EDV<40 cm/s. 3. 50 to 69% stenosis=ICA PSV of 125 to 230 cm/s: ration 2.0 ? 4.0: ICA EDV 40-100 cm/s. 4. Greater than 70% stenosis to near occlusion= ICA PSV > 230 cm/s: ratio > 4.0: ICA EDV > 100 cm/s. 5. Near occlusion= ICA PSV velocities may be low or undetectable: variable ratio and ICA EDV. 6. Total occlusion=unable to detect flow.
--- NOTE | 2023-12-29 16:57 | CDI ---
Documentation Clarification Form Date: 12/29/2023 04:39:03 PM From: Shyla Blank Phone: Admit Date: 11/28/2023 05:35:00 PM Patient Name: Alirio Pimentel Visit Number: [id number] Discharge Date: 12/05/2023 02:17:00 PM ATTENTION: The Clinical Documentation Specialists (CDI) and [facility] Coding Staff appreciate your assistance in clarifying documentation. Please respond to the clarification below the line at the bottom and electronically sign. The CDI & [facility] Coding staff will review the response and follow-up if needed. Please note: Queries are made part of the Legal Health Record. If you have any questions, please contact the author of this message via ITS. Doctor/Provider: Verito Cedeno The final diagnosis of the pathology report states Tubular adenoma descending, Sigmoid, Ascending and Angelina colon; acute on chronic gastritis, reactive gastropathy,duodenitis. Coding guidelines do not allow coding professionals to code based on pathology results; therefore, clarification is requested. History/risk factors: 78yo M, orthostatic hypotension, Antralgastritis, HTN, DMII, S Fib w PM, CAD sp CABG/TAVR, HLD Clinical Indicators: intermittentlower abdominal painanddiarrheafor the last several months duration. Abdominal painandchange in bowel habits/Intermittent chronicdiarrhea Treatment: Duodenum, Biopsy; Stomach, Biopsy Antrum; Stomach, Biopsy -Gastric polyp Colon, Biopsy - Ascendingpolyp; Colon, Biopsy -transversepolyp, Colon, Biopsy - Ascending colon biopsy, Colon, Biopsy - Descending colon biopsy, Colon, Biopsy - Descendingpolyp, Colon, Biopsy - Sigmoidpolyp Please clarify if you agree with the pathology report diagnosis of Tubular adenoma descending, Sigmoid, Ascending and Angelina colon; Milderosive on chronic gastritis, reactive gastropathy,and duodenitis: [ ] Yes [ ] No [ ] Other (please specify) [ ] Unable to determine (Template Last Revised: June 2020) I agree with pathology report. Marley AGUILAR
== END 2023-12-05 14:17 | disposition home or self-care (01) | DRG 392 ==
LOC: 6NMEDSUR 17:35
PROVIDERS: ADMIT Hospitalist; ATTEND Hospitalist
PROC: 0DBN8ZZ Excision of Sigmoid Colon, Via Natural or Artificial Opening Endoscopic (ICD-10-PCS; 2023-12-05)
PROC: 0DBM8ZZ Excision of Descending Colon, Via Natural or Artificial Opening Endoscopic (ICD-10-PCS; 2023-12-05)
PROC: 0DB98ZZ Excision of Duodenum, Via Natural or Artificial Opening Endoscopic (ICD-10-PCS; principal; 2023-12-05 08:00)
PROC: 0DB68ZZ Excision of Stomach, Via Natural or Artificial Opening Endoscopic (ICD-10-PCS; 2023-12-05 08:00)
PROC: 0DBK8ZZ Excision of Ascending Colon, Via Natural or Artificial Opening Endoscopic (ICD-10-PCS; 2023-12-05 08:00)
DX: K29.00 Acute gastritis without bleeding (principal); J44.9 Chronic obstructive pulmonary disease, unspecified; E11.9 Type 2 diabetes mellitus without complications; I48.91 Unspecified atrial fibrillation; E66.9 Obesity, unspecified; D12.2 Benign neoplasm of ascending colon; Z95.3 Presence of xenogenic heart valve; I10 Essential (primary) hypertension; I34.0 Nonrheumatic mitral (valve) insufficiency; K29.80 Duodenitis without bleeding; E78.5 Hyperlipidemia, unspecified; K29.50 Unspecified chronic gastritis without bleeding; I25.10 Atherosclerotic heart disease of native coronary artery without angina pectoris; K57.30 Diverticulosis of large intestine without perforation or abscess without bleeding; D12.4 Benign neoplasm of descending colon; D12.5 Benign neoplasm of sigmoid colon; D12.3 Benign neoplasm of transverse colon; D13.1 Benign neoplasm of stomach; Z53.09 Procedure and treatment not carried out because of other contraindication; H83.8X9 Other specified diseases of inner ear, unspecified ear; I95.1 Orthostatic hypotension; Z79.01 Long term (current) use of anticoagulants; Z95.0 Presence of cardiac pacemaker; Z95.1 Presence of aortocoronary bypass graft; Z79.85 Long-term (current) use of injectable non-insulin antidiabetic drugs; Z79.899 Other long term (current) drug therapy; Z88.1 Allergy status to other antibiotic agents
CPT/HCPCS: 43239; 45380; 45385; 70450; 71046; 88305; 88341; 88342; 93306; 93880; 96360; 99285

== ENCOUNTER 2023-12-09 09:52 | Observation (INO) | payer MEDICARE, BC ==
--- NOTE | 2023-12-09 10:03 | ED ---
General Adult HPI - General Chief complaint: Altered Mental Status Stated complaint: Cardiac Time Seen by Provider: 12/09/23 10:00 Source: patient Mode of arrival: wheelchair - History of Present Illness Initial comments: Patient is a 78-year-old male, history electronic ventricular pacemaker without on Eliquis, prior OR, hypertension, recent admission for orthostatic hypotension and gastritis presenting today for amnesia. Patient had a doctor's appointment yesterday and upon returning home told his he does not remember the doctor's appointment or what happened. He was supposed to have a "pain shot" and is not sure if this happened or does not ever happening however upon calling doctor's office patient did receive a steroid injection into his right shoulder. Patient remembers going to the standing up this morning, taking his medications and then attending cardiac rehab. A code "day team" was called to cardiac rehab when patient was looking ill. Patient does not remember what happened at cardiac rehab that caused him to come down to the ED. Patient endorses CAZARES but CAZARES is similar to prior. No changes in vision, slurred speech, numbness or focal weakness. Of note patient also states that he went golfing last night and made it "3 holes but could not finish". Patient does not remember why he was unable to finish golfing. He currently denies any chest pain, dizziness, shortness of breath, no recent fevers, no new abdominal pain, diarrhea from his prior admission has resolved. - Related Data Home Medications Medication Instructions Recorded Confirmed Multivitamin [Men's Multi-Vitamin] 1 tab PO DAILY 04/01/15 12/09/23 Tamsulosin HCl [Flomax] 0.4 mg PO DAILY 10/09/18 12/09/23 Metoprolol Succinate (ER) [Toprol 50 mg PO BID 12/20/18 12/09/23 XL] Atorvastatin [Lipitor] 40 mg PO HS 09/22/20 12/09/23 Cholecalciferol [Vitamin D3 (25 25 mcg PO DAILY 09/22/20 12/09/23 Mcg = 1000 Iu)] Apixaban [Eliquis] 5 mg PO BID 08/24/21 12/09/23 Cyanocobalamin (Vitamin B-12) 5,000 mcg PO DAILY 05/07/22 12/09/23 [Vitamin B-12] Gabapentin [Neurontin] 300 mg PO DAILY 07/14/22 12/09/23 Canagliflozin [Invokana] 300 mg PO DAILY 07/15/23 12/09/23 Gabapentin 600 mg PO HS 12/09/23 12/09/23 Semaglutide [Ozempic] 1 mg SQ DIRECTED 12/09/23 12/09/23 Previous Rx's Medication Instructions Recorded Meclizine [Antivert] 25 mg PO TID PRN #15 tab 12/05/23 Pantoprazole [Protonix] 40 mg PO BID #44 tab 12/05/23 Aspirin 81 mg PO DAILY #30 tab 12/11/23 Allergies Allergy/AdvReac Type Severity Reaction Status Date / Time azithromycin [From Zithromax] AdvReac Nausea & Verified 12/09/23 14:30 Vomiting Review of Systems ROS Statement: Those systems with pertinent positive or pertinent negative responses have been documented in the HPI. ROS Other: All systems not noted in ROS Statement are negative. Limitations: ROS unobtainable due to patients medical condition Past Medical History Past Medical History: Atrial Fibrillation, Asthma, Blood Disorder, Coronary Artery Disease (CAD), Cancer, CVA/TIA, Diabetes Mellitus, GERD/Reflux, Hyperlipidemia, Hypertension, Osteoarthritis (OA), Prostate Disorder, Sleep Apnea/CPAP/BIPAP, Vascular Disorder Additional Past Medical History / Comment(s): Hx skin cancer, post CABG A fib, TIA years ago, pernicious anemia with monthly injections, hiatal hernia, BPH, venous insufficiency, occasional lower leg/pedal edema, spinal stenosis, herniated disc L1, spinal cyst, chronic low back pain, rare neck pain, benign colon polyp, hx Covid 06/2019. unable to use CPAP History of Any Multi-Drug Resistant Organisms: None Reported Past Surgical History: Bowel Resection, Cholecystectomy, Coronary Bypass/CABG, Heart Catheterization, Hernia Repair, Joint Replacement Additional Past Surgical History / Comment(s): 10/2018 CABG 2 vessels, bilateral knee replacements, right done twice, bowel resection at age 12 yrs d/t obstruction, umbilical hernia repair, skin cancer removed from 3 spots, colonoscopy, back injections, bilateral cataract removals with lens implants. Past Anesthesia/Blood Transfusion Reactions: No Reported Reaction Past Psychological History: No Psychological Hx Reported Additional Psychological History / Comment(s): Pt resides with his spouse. Pt has had increased stress d/t spouse going thru health problems. He is independent. He has a glucometer. 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 Past Drug Use History: None Reported - Past Family History Father Family Medical History: Congestive Heart Failure (CHF), CVA/TIA Additional Family Medical History / Comment(s): at age 68. Brother(s) Family Medical History: Cancer, COPD, Diabetes Mellitus Additional Family Medical History / Comment(s): Heart problems. Mother Family Medical History: Deep Vein Thrombosis (DVT), Myocardial Infarction (OR) Additional Family Medical History / Comment(s): at 79 w/ OR. General Exam - General Exam Comments Initial Comments: PE: CONSTITUTIONAL: No apparent distress, well appearing, tearful, awake and alert SKIN: Warm, dry, no jaundice, hives or petechiae EYES: Pupils are equally round, extraocular movements intact without nystagmus, clear conjunctiva, non-icteric sclera HENT: Normocephalic, atraumatic, moist mucus membranes, oropharynx clear without exudates NECK: , Full range of motion, normal appearance PULMONARY: Clear to auscultation without wheezes, rhonchi, or rales, normal excursion, no accessory muscle use and no stridor CARDIOVASCULAR:regular rate, rhythm, normal S1 and S2. No appreciated murmurs, rubs or gallops. Strong radial pulses with intact distal perfusion. Bilateral 1+ pitting edema GASTROINTESTINAL: Soft, diffusely tender, non-distended, no palpable masses, no rebound or guarding. No hepatosplenomegaly MUSCULOSKELETAL: Extremities have no gross deformity, no edema, redness, or swelling. No calf swelling ot TTP. NEUROLOGIC:_a/o x 3, GCS 15, normal mentation and speech. Moves all extremities x 4 without motor or sensory deficit; cranial nerves: II (visual robin without defects), III, IV and (extraocular movements are intact, pupils are equal with normal reaction to light), V (intact facial sensation and jaw opening), VII (no facial droop), IX and X (normal palate movement, midline uvula, normal voice), XI (symmetrical shoulder shrug and lateral head rotation against resistance), XII (midline tongue protrusion). Motor strength is 5/5 in all extremities. No abnormal movements. Normal muscle tone. Sensation to light touch is intact bilaterally. PSYCHIATRIC: Tearful mood and affect, thought process is clear and linear Course Vital Signs 12/09/23 12/09/23 12/09/23 09:55 11:10 12:03 Temperature 98.2 F 97.8 F Pulse Rate 65 60 56 L Pulse Rate [ Left Pulse Oximetery] Respiratory 20 18 16 Rate Blood Pressure 159/78 143/64 118/98 Blood Pressure [Left Arm] O2 Sat by Pulse 98 96 95 Oximetry 12/09/23 12/09/23 12/09/23 13:19 13:37 14:12 Temperature 97.9 F Pulse Rate 59 L 65 61 Pulse Rate [ Left Pulse Oximetery] Respiratory 14 16 18 Rate Blood Pressure 155/81 156/82 149/88 Blood Pressure [Left Arm] O2 Sat by Pulse 95 97 97 Oximetry 12/09/23 12/09/23 12/09/23 16:00 16:09 17:13 Temperature 97.5 F L 98.0 F 97.7 F Pulse Rate 63 67 Pulse Rate [ 60 Left Pulse Oximetery] Respiratory 16 14 18 Rate Blood Pressure 133/79 144/91 Blood Pressure 156/72 [Left Arm] O2 Sat by Pulse 96 97 97 Oximetry Medical Decision Making - Medical Decision Making Was pt. sent in by a medical professional or institution (TAMERA Neff, HAT FORMING MACHINE OPERATOR, urgent care, hospital, or [place] health care facility...) When possible be specific @ -Patient sent down from cardiac rehab Did you speak to anyone other than the patient for history (EMS, parent, family, police, friend...)? What history was obtained from this source @ -Spoke with patient's Did you review nursing and triage notes (agree or disagree)? Why? @ -I reviewed and agree with nursing and triage notes Were old charts reviewed (outside hosp., previous admission, EMS record, old EKG, old radiological studies, urgent care reports/EKG's, [place] [facility] care facility records)? Report findings @ -Patient admitted on 11/28/2023 and discharged on 12/04/2023 presented for d joanna and concern for syncopal episode ultimately found to have orthostatic blood pressures patient discharged on Protonix twice daily and resumed his Eliquis. Differential Diagnosis (chest pain, altered mental status, abdominal pain women, abdominal pain men, vaginal bleeding, weakness, fever, dyspnea, syncope, headache, dizziness, GI bleed, back pain, seizure, CVA, palpatations, mental health, musculoskeletal)? @ -Differential gnosis remains broad however top considerations include: Transi ent global amnesia, TIA, hypoglycemia, medication side effect, myxedema coma, hypertensive encephalopathy, intracranial mass, infection, psychosis this is not meant to be an all-inclusive list EKG interpreted by me (3pts min.). @ Electronic ventricular pacemaker, rate 66 bpm, NC interval 2050 ms, QRS duration 187 ms, QT/QTc 466/479 ms, left axis deviation, compared to EKG performed on 07/22/2023, no significant changes from prior, no STEMI X-rays interpreted by me (1pt min.). @ -mild cardiomegaly CT interpreted by me (1pt min.). @ -No hemorrhage U/S interpreted by me (1pt. min.). @ -None done What testing was considered but not performed or refused? (CT, X-rays, U/S, labs)? Why? @ -None What meds were considered but not given or refused? Why? @ -None Did you discuss the management of the patient with other professionals (professionals i.e. , PA, HAT FORMING MACHINE OPERATOR, lab, RT, psych nurse, manager social work, head of art, teacher, executive officer special warfare team, returned case inspector)? Give summary @ -No Was smoking cessation discussed for >3mins.? @ -No Was critical care preformed (if so, how long)? @ -No Were there social determinants of health that impacted care today? How? (Homelessness, low income, unemployed, alcoholism, drug addiction, transportation, low edu. Level, literacy, decrease access to med. care, intermediate, rehab)? @ -No Was there de-escalation of care discussed even if they declined (Discuss DNR or withdrawal of care, Hospice)? DNR status @ -No What co-morbidities impacted this encounter? (DM, HTN, Smoking, COPD, CAD, Cancer, CVA, ARF, Chemo, Hep., AIDS, mental health diagnosis, sleep apnea, morbid obesity)? @ -HTN , CAD, prior CVA Was patient admitted / discharged? Hospital course, mention meds given and rou te, prescriptions, significant lab abnormalities, going to OR and other pertinent info. @ -Hospital course Patient is a 78-year-old male presenting today for altered mental status, episodes of amnesia. On assessment patient is tearful but overall well- appearing. No acute distress. No focal neurologic deficits. Is oriented x 4. Altered mental status workup including CT brain ordered. Tylenol for headache. Labs reviewed and overall reassuring, troponin less troponin 0.015, trace protein, 4+ glucose in urine. So far labs do not give clear reason as to patient's cause of patient's amnesia. Added CTA head and neck. CT brain showed remote basilar occlusion or infarct. Unclear the chroni ciNoNoNoNoHospital courseNoNoNoNoNoNoneNoneNone doneI reviewed and agree with nursing and triage notesty of this finding, especially due to patient intermittent dizziness for last week and episodes of amnesia between the last 2 days. CTA showed no large vessel occlusion. UDS positive for cocaine, Pt denies cocaine use, could potentially be 2/[address] abdomen pelvis showed renal mass, recommend ultrasound, ultrasound ordered. Updated patient and to results. Plan for admission for MRI brain. Patient agreeable plan. Discussed with Dr. See who accepts patient for admission. Undiagnosed new problem with uncertain prognosis? @ Yes Drug Therapy requiring intensive monitoring for toxicity (Heparin, Nitro, Insulin, Cardizem)? @ -No Were any procedures done? @ -No Diagnosis/symptom? @ -Amneisa, altered mental status, renal mass Acute, or Chronic, or Acute on Chronic? @ -Acute Uncomplicated (without systemic symptoms) or Complicated (systemic symptoms)? @ -Complicated Side effects of treatment? @ -No Exacerbation, Progression, or Severe Exacerbation? @ -No Poses a threat to life or bodily function? How? (Chest pain, USA, OR, pneumonia, PE, COPD, DKA, ARF, appy, cholecystitis, CVA, Diverticulitis, Homicidal, Suicidal, threat to staff... and all critical care pts) @ Potentially - Lab Data Result diagrams: 12/09/23 10:29 12/09/23 10:29 Lab Results 12/09/23 12/09/23 12/09/23 Range/Units 10: 10: 10:29 WBC 6.3 (3.8-10.6) k/uL RBC 5.00 (4.30-5.90) m/uL Hgb 13.3 (13.0-17.5) gm/dL Hct 40.7 (39.0-53.0) % MCV 81.5 (80.0-100.0) fL MCH 26.5 (25.0-35.0) pg MCHC 32.6 (31.0-37.0) g/dL RDW 15.9 H (11.5-15.5) % Plt Count 143 L (150-450) k/uL MPV 8.0 Neutrophils % 65 % Lymphocytes % 22 % Monocytes % 8 % Eosinophils % 2 % Basophils % 1 % Neutrophils # 4.1 (1.3-7.7) k/uL Lymphocytes # 1.4 (1.0-4.8) k/uL Monocytes # 0.5 (0-1.0) k/uL Eosinophils # 0.2 (0-0.7) k/uL Basophils # 0.1 (0-0.2) k/uL Hypochromasia Slight PT 11.3 (10.0-12.5) sec INR 1.0 (<1.2) APTT 25.6 (22.0-30.0) sec Sodium (137-145) mmol/L Potassium (3.5-5.1) mmol/L Chloride (98-107) mmol/L Carbon Dioxide (22-30) mmol/L Anion Gap mmol/L BUN (9-20) mg/dL Creatinine (0.66-1.25) mg/dL Est GFR (CKD-EPI)AfAm (>60 ml/min/1.73 sqM) Est GFR (CKD-EPI)NonAf (>60 ml/min/1.73 sqM) Glucose (74-99) mg/dL POC Glucose (mg/dL) (70-110) mg/dL POC Glu Business And Services Instructor ID Calcium (8.4-10.2) mg/dL Total Bilirubin (0.2-1.3) mg/dL AST (17-59) U/L ALT (4-49) U/L Alkaline Phosphatase (38-126) U/L Ammonia (<30) umol/L Troponin I (0.000-0.034) ng/mL Total Protein (6.3-8.2) g/dL Albumin (3.5-5.0) g/dL Lipase (23-300) U/L TSH (0.465-4.680) mIU/L Urine Color Colorless Urine Appearance Clear (Clear) Urine pH 6.0 (5.0-8.0) Ur Specific Datil 1.009 (1.001-1.035) Urine Protein Trace H (Negative) Urine Glucose (UA) 4+ H (Negative) Urine Ketones Negative (Negative) Urine Blood Negative (Negative) Urine Nitrite Negative (Negative) Urine Bilirubin Negative (Negative) Urine Urobilinogen <2.0 (<2.0) mg/dL Ur Leukocyte Esterase Negative (Negative) Salicylates mg/dL Urine Opiates Screen Not Detected (NotDetected) Ur Oxycodone Screen Not Detected (NotDetected) Urine Methadone Screen Not Detected (NotDetected) Acetaminophen ug/mL Ur Barbiturates Screen Not Detected (NotDetected) U Tricyclic Antidepress Not Detected (NotDetected) Ur Phencyclidine Scrn Not Detected (NotDetected) Ur Amphetamines Screen Not Detected (NotDetected) U Methamphetamines Scrn Not Detected (NotDetected) U Benzodiazepines Scrn Not Detected (NotDetected) Urine Cocaine Screen Detected H (NotDetected) U Marijuana (THC) Screen Not Detected (NotDetected) Serum Alcohol mg/dL 12/09/23 12/09/23 12/09/23 Range/Units 10:29 10:29 10:29 WBC (3.8-10.6) k/uL RBC (4.30-5.90) m/uL Hgb (13.0-17.5) gm/dL Hct (39.0-53.0) % MCV (80.0-100.0) fL MCH (25.0-35.0) pg MCHC (31.0-37.0) g/dL RDW (11.5-15.5) % Plt Count (150-450) k/uL MPV Neutrophils % % Lymphocytes % % Monocytes % % Eosinophils % % Basophils % % Neutrophils # (1.3-7.7) k/uL Lymphocytes # (1.0-4.8) k/uL Monocytes # (0-1.0) k/uL Eosinophils # (0-0.7) k/uL Basophils # (0-0.2) k/uL Hypochromasia PT (10.0-12.5) sec INR (<1.2) APTT (22.0-30.0) sec Sodium 141 (137-145) mmol/L Potassium 4.0 (3.5-5.1) mmol/L Chloride 108 H (98-107) mmol/L Carbon Dioxide 30 (22-30) mmol/L Anion Gap 3 mmol/L BUN 14 (9-20) mg/dL Creatinine 0.97 (0.66-1.25) mg/dL Est GFR (CKD-EPI)AfAm 86 (>60 ml/min/1.73 sqM) Est GFR (CKD-EPI)NonAf 75 (>60 ml/min/1.73 sqM) Glucose 89 (74-99) mg/dL POC Glucose (mg/dL) (70-110) mg/dL POC Glu Business And Services Instructor ID Calcium 9.3 (8.4-10.2) mg/dL Total Bilirubin 1.0 (0.2-1.3) mg/dL AST 23 (17-59) U/L ALT 13 (4-49) U/L Alkaline Phosphatase 71 (38-126) U/L Ammonia <9 (<30) umol/L Troponin I 0.015 (0.000-0.034) ng/mL Total Protein 6.2 L (6.3-8.2) g/dL Albumin 3.6 (3.5-5.0) g/dL Lipase 47 (23-300) U/L TSH 1.270 (0.465-4.680) mIU/L Urine Color Urine Appearance (Clear) Urine pH (5.0-8.0) Ur Specific Datil (1.001-1.035) Urine Protein (Negative) Urine Glucose (UA) (Negative) Urine Ketones (Negative) Urine Blood (Negative) Urine Nitrite (Negative) Urine Bilirubin (Negative) Urine Urobilinogen (<2.0) mg/dL Ur Leukocyte Esterase (Negative) Salicylates <1.0 mg/dL Urine Opiates Screen (NotDetected) Ur Oxycodone Screen (NotDetected) Urine Methadone Screen (NotDetected) Acetaminophen <10.0 ug/mL Ur Barbiturates Screen (NotDetected) U Tricyclic Antidepress (NotDetected) Ur Phencyclidine Scrn (NotDetected) Ur Amphetamines Screen (NotDetected) U Methamphetamines Scrn (NotDetected) U Benzodiazepines Scrn (NotDetected) Urine Cocaine Screen (NotDetected) U Marijuana (THC) Screen (NotDetected) Serum Alcohol <10 mg/dL 12/09/23 Range/Units 11:04 WBC (3.8-10.6) k/uL RBC (4.30-5.90) m/uL Hgb (13.0-17.5) gm/dL Hct (39.0-53.0) % MCV (80.0-100.0) fL MCH (25.0-35.0) pg MCHC (31.0-37.0) g/dL RDW (11.5-15.5) % Plt Count (150-450) k/uL MPV Neutrophils % % Lymphocytes % % Monocytes % % Eosinophils % % Basophils % % Neutrophils # (1.3-7.7) k/uL Lymphocytes # (1.0-4.8) k/uL Monocytes # (0-1.0) k/uL Eosinophils # (0-0.7) k/uL Basophils # (0-0.2) k/uL Hypochromasia PT (10.0-12.5) sec INR (<1.2) APTT (22.0-30.0) sec Sodium (137-145) mmol/L Potassium (3.5-5.1) mmol/L Chloride (98-107) mmol/L Carbon Dioxide (22-30) mmol/L Anion Gap mmol/L BUN (9-20) mg/dL Creatinine (0.66-1.25) mg/dL Est GFR (CKD-EPI)AfAm (>60 ml/min/1.73 sqM) Est GFR (CKD-EPI)NonAf (>60 ml/min/1.73 sqM) Glucose (74-99) mg/dL POC Glucose (mg/dL) 86 (70-110) mg/dL POC Glu Business And Services Instructor ID Fariba [place] Calcium (8.4-10.2) mg/dL Total Bilirubin (0.2-1.3) mg/dL AST (17-59) U/L ALT (4-49) U/L Alkaline Phosphatase (38-126) U/L Ammonia (<30) umol/L Troponin I (0.000-0.034) ng/mL Total Protein (6.3-8.2) g/dL Albumin (3.5-5.0) g/dL Lipase (23-300) U/L TSH (0.465-4.680) mIU/L Urine Color Urine Appearance (Clear) Urine pH (5.0-8.0) Ur Specific Datil (1.001-1.035) Urine Protein (Negative) Urine Glucose (UA) (Negative) Urine Ketones (Negative) Urine Blood (Negative) Urine Nitrite (Negative) Urine Bilirubin (Negative) Urine Urobilinogen (<2.0) mg/dL Ur Leukocyte Esterase (Negative) Salicylates mg/dL Urine Opiates Screen (NotDetected) Ur Oxycodone Screen (NotDetected) Urine Methadone Screen (NotDetected) Acetaminophen ug/mL Ur Barbiturates Screen (NotDetected) U Tricyclic Antidepress (NotDetected) Ur Phencyclidine Scrn (NotDetected) Ur Amphetamines Screen (NotDetected) U Methamphetamines Scrn (NotDetected) U Benzodiazepines Scrn (NotDetected) Urine Cocaine Screen (NotDetected) U Marijuana (THC) Screen (NotDetected) Serum Alcohol mg/dL Disposition Clinical Impression: Amnesia, Altered mental status Disposition: ADMITTED IP TO THIS [facility] Condition: Fair
--- NOTE | 2023-12-09 10:53 | P.CRDCN ---
History of Present Illness Consult date: 12/09/23 History of present illness: This is this is a 78-year-old male patient of Dr. NASIM Sprague with past medical history of coronary artery disease status post bypass grafting in 2019 with CHE to LAD and diagonal sequentially done off-pump without crossclamping the calcified aorta, history of aortic stenosis status post TAVR 07/21/2023 complicated by complete heart block requiring permanent pacemaker, history of hypertension, paroxysmal atrial fibrillation on Eliquis, hyperlipidemia, diabetes mellitus type 2, morbid obesity, poor functional capacity, chronic back pain. Patient had a recent hospitalization during [place] downtime at which time he was seen by cardiology for syncope related to diarrhea. Patient also had black stools and was seen by GI status post EGD finding antral gastritis. Patient was discharged on 12/04. Today he was at cardiac rehab and there was concern that patient had confusion. Apparently he had some confusion yesterday did not remember going to the doctor or to cardiac rehab. [facility] was called and patient was brought over the emergency center. He denies having any chest pain or shortness of breath at this time. Staff also relate the patient was crying at the time they saw him in rehab. No fever or chills. Blood pressure 149/78, heart rate 65. EKG: Paced rhythm. Patient states that he has been taking his Eliquis as scheduled. Echocardiogram dated 07/22/2023 reveals EF of 50 to 55%, bioprosthetic aortic valve stable with mean gradient of 15 and no evidence of any perivalvular regurgitation, mild TR. Cardiac catheterization performed 04/21/2023 revealed no disease in the RCA or LM. Minor irregularities in the circumflex. LAD totally occluded in the midportion, CHE to LAD patent sequential graft opacities both LAD and diagonal. Review Of Systems: At the time of my exam: CONSTITUTIONAL: Denies fever or chills. HEENT: Denies blurred vision, vision changes, or eye pain. Denies hemoptysis CARDIOVASCULAR: Denies chest pain. Denies orthopnea. Denies PND. Denies palpitations RESPIRATORY: Denies shortness of breath. GASTROINTESTINAL: Denies abdominal pain. Denies nausea or vomiting. HEMATOLOGIC: Denies bleeding disorders. GENITOURINARY: Denies any blood in urine. SKIN: Denies puritis. Denies rash. Physical examination: Gen: This is a 78-year-old morbidly obese male in no acute distress VS: reviewed HEENT: Head is atraumatic, normocephalic. Pupils equal, round. Sclerae is anicteric. NECK: Supple. No JVD. LUNGS: Clear to auscultation. No wheezes or rhonchi. No intercostal retractions. HEART: Regular rate and rhythm. No murmur. ABDOMEN: Soft No tenderness. EXTREMITIES: Minimal pedal edema. No calf tenderness. NEUROLOGICAL: Patient is awake, alert and oriented to person and place. Assessment: Mental status changes of unclear etiology to be worked up by attending History of coronary artery disease status post CABG in 2019 Aortic stenosis status post TAVR Complete heart block following TAVR requiring permanent pacemaker Hypertension Paroxysmal atrial fibrillation on Eliquis Hyperlipidemia Diabetes mellitus type 2 Morbid obesity Poor functional capacity Chronic back pain Plan: Resume patient's home cardiac medications Further recommendations to follow based upon clinical course Thank you kindly for this consultation. Nurse practitioner note has been reviewed, I agree with documented findings and plan of care. Patient was seen and examined. Past Medical History Past Medical History: Atrial Fibrillation, Asthma, Blood Disorder, Coronary Artery Disease (CAD), Cancer, CVA/TIA, Diabetes Mellitus, GERD/Reflux, Hyperlipidemia, Hypertension, Osteoarthritis (OA), Prostate Disorder, Sleep Apnea/CPAP/BIPAP, Vascular Disorder Additional Past Medical History / Comment(s): Hx skin cancer, post CABG A fib, TIA years ago, pernicious anemia with monthly injections, hiatal hernia, BPH, venous insufficiency, occasional lower leg/pedal edema, spinal stenosis, herniated disc L1, spinal cyst, chronic low back pain, rare neck pain, benign colon polyp, hx Covid 06/2019. unable to use CPAP History of Any Multi-Drug Resistant Organisms: None Reported Past Surgical History: Bowel Resection, Cholecystectomy, Coronary Bypass/CABG, Heart Catheterization, Hernia Repair, Joint Replacement Additional Past Surgical History / Comment(s): 10/2018 CABG 2 vessels, bilateral knee replacements, right done twice, bowel resection at age 12 yrs d/t obstruction, umbilical hernia repair, skin cancer removed from 3 spots, colonoscopy, back injections, bilateral cataract removals with lens implants. Past Anesthesia/Blood Transfusion Reactions: No Reported Reaction Past Psychological History: No Psychological Hx Reported Additional Psychological History / Comment(s): Pt resides with his spouse. Pt has had increased stress d/t spouse going thru health problems. He is independent. He has a glucometer. 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 Past Drug Use History: None Reported - Past Family History Father Family Medical History: Congestive Heart Failure (CHF), CVA/TIA Additional Family Medical History / Comment(s): at age 68. Brother(s) Family Medical History: Cancer, COPD, Diabetes Mellitus Additional Family Medical History / Comment(s): Heart problems. Mother Family Medical History: Deep Vein Thrombosis (DVT), Myocardial Infarction (MS) Additional Family Medical History / Comment(s): at 79 w/ MS. Medications and Allergies Home Medications Medication Instructions Recorded Confirmed Type Multivitamin [Men's Multi-Vitamin] 1 tab PO DAILY 04/01/15 09/02/23 History Tamsulosin HCl [Flomax] 0.4 mg PO DAILY 10/09/18 09/02/23 History Metoprolol Succinate (ER) [Toprol 50 mg PO BID 12/20/18 09/02/23 History XL] Atorvastatin [Lipitor] 40 mg PO HS 09/22/20 07/21/23 History Cholecalciferol [Vitamin D3 (25 25 mcg PO DAILY 09/22/20 07/21/23 History Mcg = 1000 Iu)] Apixaban [Eliquis] 5 mg PO BID 08/24/21 09/02/23 History Cyanocobalamin (Vitamin B-12) 5,000 mcg PO DAILY 05/07/22 07/21/23 History [Vitamin B-12] Gabapentin 600 mg PO HS 05/07/22 09/02/23 History Albuterol Sulfate [Albuterol 1 - 2 puff PO RT-Q4H PRN 07/14/22 07/21/23 History Sulfate Hfa] Fluticasone/Vilanterol [Breo 1 puff INHALATION RT-DAILY 07/14/22 07/21/23 History Ellipta 100-25 Mcg Inhaler] Gabapentin [Neurontin] 300 mg PO DAILY 07/14/22 09/02/23 History lisinopriL [Prinivil] 10 mg PO DAILY 08/24/22 09/02/23 History Canagliflozin [Invokana] 300 mg PO DAILY 07/15/23 09/02/23 History Cyanocobalamin [Vitamin B-12 1,000 mcg SQ QMONTHLY 07/15/23 07/21/23 History Injection] Furosemide [Lasix] 40 mg PO DAILY 07/15/23 07/21/23 History Potassium Chloride [Klor-Con M20] 40 meq PO DAILY 07/15/23 07/21/23 History Semaglutide [Ozempic] 0.5 mg SQ WE 07/15/23 09/02/23 History Aspirin 81 mg PO DAILY PRN 07/21/23 09/02/23 History Acetaminophen Tab [Tylenol] 650 mg PO Q6HR PRN tab 07/23/23 Rx Sennosides-Docusate Sodium 2 each PO HS tab 07/23/23 Rx [Senokot-S] Meclizine [Antivert] 25 mg PO TID PRN #15 tab 12/05/23 Rx Pantoprazole [Protonix] 40 mg PO BID #44 tab 12/05/23 Rx Allergies Allergy/AdvReac Type Severity Reaction Status Date / Time azithromycin [From Zithromax] AdvReac Nausea & Verified 12/09/23 10:01 Vomiting
[2023-12-09 10:57] LABS: Appearance,Urine Clear (Clear); Bilirubin,Urine Negative (Negative); Blood,Urine Negative (Negative); Color,Urine Colorless; Glucose,Urine (UA) 4+ (Negative); Ketones,Urine Negative (Negative); Leukocyte Esterase,Urine Negative (Negative); Nitrite,Urine Negative (Negative); Protein,Urine Trace (Negative); Specific Gravity,Urine 1.009 (1.001-1.035); Urobilinogen,Urine <2.0 mg/dL (<2.0)
[2023-12-09 11:05] LABS: Glucose,Whole Blood 86 mg/dL (70-110)
[2023-12-09] MEDS: ACETAMINOPHEN TAB 500 MG TAB PO STA (11:25)
[2023-12-09 11:40] LABS: Basophils # (A) 0.1 k/uL (0-0.2); Basophils % (A) 1 %; Eosinophils # (A) 0.2 k/uL (0-0.7); Eosinophils % (A) 2 %; HCT 40.7 % (39.0-53.0); HGB 13.3 gm/dL (13.0-17.5); Hypochromasia Slight; Lymphocytes # (A) 1.4 k/uL (1.0-4.8); Lymphocytes % (A) 22 %; MCH 26.5 pg (25.0-35.0); MCHC 32.6 g/dL (31.0-37.0); MCV 81.5 fL (80.0-100.0); Monocytes # (A) 0.5 k/uL (0-1.0); Monocytes % (A) 8 %; Neutrophils # (A) 4.1 k/uL (1.3-7.7); Neutrophils % (A) 65 %; Platelet Count 143 k/uL (150-450); RDW 15.9 % (11.5-15.5); WBC 6.3 k/uL (3.8-10.6)
[2023-12-09 11:53] LABS: Partial Thromboplastin Time 25.6 sec (22.0-30.0); Prothrombin Time 11.3 sec (10.0-12.5)
--- NOTE | 2023-12-09 11:53 | XR ---
EXAMINATION TYPE: XR chest 2V DATE OF EXAM: 12/09/2023 COMPARISON: 07/23/2023 HISTORY: 78-year-old male confusion, altered mental status TECHNIQUE: AP and lateral views FINDINGS: Median sternotomy wires are present with endovascular aortic valve replacement. Left anterior chest w all pacemaker generator with right atrial and right ventricular leads. Heart mildly enlarged. Portabl e technique and body habitus causes hazy densities. No marina consolidation or pleural effusion.-Mid t horacic spine. IMPRESSION: Mild cardiomegaly. No definite acute process.
[2023-12-09 11:56] LABS: ALT 13 U/L (4-49); AST 23 U/L (17-59); Acetaminophen <10.0 ug/mL; African American GFR (CKD) 86 (>60 ml/min/1.73 sqM); Albumin 3.6 g/dL (3.5-5.0); Alcohol <10 mg/dL; Alkaline Phosphatase 71 U/L (38-126); Amphetamine Screen,Urine Not Detected (NotDetected); Anion Gap 3 mmol/L; Barbiturate Screen,Urine Not Detected (NotDetected); Benzodiazepines Screen,Urine Not Detected (NotDetected); Blood Urea Nitrogen 14 mg/dL (9-20); Calcium 9.3 mg/dL (8.4-10.2); Carbon Dioxide 30 mmol/L (22-30); Chloride 108 mmol/L (98-107); Cocaine Screen,Urine Detected (NotDetected); Glucose 89 mg/dL (74-99); Lipase 47 U/L (23-300); Methadone Screen, Urine Not Detected (NotDetected); Non-African American GFR(CKD) 75 (>60 ml/min/1.73 sqM); Opiate Screen,Urine Not Detected (NotDetected); Oxycodone Screen, Urine Not Detected (NotDetected); Phencyclidine Screen,Urine Not Detected (NotDetected); Salicylate <1.0 mg/dL; Sodium 141 mmol/L (137-145); Total Protein 6.2 g/dL (6.3-8.2); Tricyclic Antidepressant,Urine Not Detected (NotDetected); Urn Cannabinoid Scrn Not Detected (NotDetected)
--- NOTE | 2023-12-09 12:38 | CT ---
EXAMINATION TYPE: CT brain wo con DATE OF EXAM: 12/09/2023 COMPARISON: 08/24/2012 HISTORY: AMS CT DLP: 1251.4 mGycm Automated exposure control for dose reduction was used. FINDINGS: Limited exam due to artifact extending across both cerebral hemispheres with attention to images 31 t hrough 37 which limits assessment for acute ischemia. If concern for acute ischemia given limitation exam correlate with MRI as clinically warranted. Hypodensity within the left basal ganglia compatible with remote lacunar infarct. Mild degenerative c hange with hypoattenuation the white matter most typical remote microvascular ischemia. There is athe rosclerotic change of the vasculature. Orbits are symmetric. Calvarium intact. Changes of chronic sin usitis. IMPRESSION: LIMITED ASSESSMENT FOR ACUTE ISCHEMIA DEDICATED DIFFUSE ARTIFACT. GROSSLY NO SIZABLE ACUTE INTRAPAREN CHYMAL HEMORRHAGE OR MASS EFFECT.
--- NOTE | 2023-12-09 12:55 | CT ---
EXAMINATION TYPE: CT angio head neck DATE OF EXAM: 12/09/2023 HISTORY: AMS COMPARISON: 12/09/2019 CT DLP: 3860.20 mGycm. Automated Exposure Control for Dose Reduction was Utilized. TECHNIQUE: CTA scan of the head and neck is performed with IV Contrast, patient injected with 100 mL of Isovue 300, axial images are obtained, coronal and sagittal reformatted images are reviewed. 3D r econstructed images are created on an independent workstation and reviewed. FINDINGS: Lung apices clear. There is a cardiac device and postmedian sternotomy changes subcentimeter right th yroid nodule. Mild atherosclerotic plaque at the carotid bifurcations. No significant stenosis. Vertebral arteries patent. Posterior cerebral artery on the left originates from the anterior circulation. Left vertebra l artery is diminutive in size. Grossly the posterior cerebral artery, anterior cerebral artery and m iddle cerebral artery enhance centrally with no proximal stenosis or occlusion. Correlate with MRI as clinically warranted. No sizable aneurysm. Changes of chronic sinusitis and degenerative changes of the spine. Intracranial atherosclerotic salazar ges most marked involving cavernous segment bilateral ICA. IMPRESSION: 1. No significant stenosis of the carotid bifurcations. 2. No arch central vascular intracranial occlusion correlate with MRI as clinically warranted. NASCET criteria was used in interpretation of this exam?
--- NOTE | 2023-12-09 13:02 | CT ---
EXAMINATION TYPE: CT abdomen pelvis w con DATE OF EXAM: 12/09/2023 COMPARISON: 02/19/2020 HISTORY: abdominal pain, hx of diverticulosis CT DLP: 3860.2 mGycm Automated exposure control for dose reduction was used. CONTRAST: CT scan of the abdomen pelvis is performed with IV Contrast, patient injected with 100 ml mL of Isovu e 300. FINDINGS- LUNG BASES- cardiomegaly with cardiomegaly and aortic valve surgery noted. Basilar scarring or atele ctasis. LIVER/GB- liver reduced attenuation correlate for underlying hepatocellular disease or stenosis. Po stcholecystectomy changes noted. PANCREAS- atrophic changes of the pancreas. SPLEEN- No gross abnormality is seen. ADRENALS- No gross abnormality is seen. KIDNEYS/BLADDER-bilateral perinephric edema with nonobstructing lower pole punctate 1 mm calculus. No hydronephrosis. There is dilation of the left distal ureter with periureteral edema but no obstructi ng calculus. Prostate is markedly enlarged which may contribute correlate clinically. Recommend corre lation with urinalysis. Indeterminate left renal lesions recommend correlation with ultrasound. A similar to prior exam. Bladder limited by incomplete distention with no wall thickening or calculus. BOWEL- diverticulosis with no CT evidence of diverticulitis. No obstruction. LYMPH NODES- No greater than 1cm abdominal or pelvic lymph nodes are appreciated. OSSEOUS STRUCTURES- degenerative changes of the spine. Bilateral SI joints and hip arthropathy. Grad e 1 anterolisthesis L4-L5 appears degenerative with multilevel facet arthropathy. OTHER- aorta of normal caliber with atherosclerotic changes. No free fluid or free air. IMPRESSION- 1. Diverticulosis with no CT evidence of diverticulitis. 2. Nonobstructing punctate lower pole left renal calculus. There are indeterminate left renal lesion for which ultrasound recommended. 3. There is a dilation of the mid to distal left ureter with no obstructing calculus and mild periure teral edema. Could be postinfectious. Mucosal lesion not excluded. Correlate for recently passed ston e or possibly compressive changes from the enlarged prostate.
--- NOTE | 2023-12-09 14:23 | US ---
EXAMINATION TYPE: US renals and bladder DATE OF EXAM: 12/09/2023 COMPARISON: CT 2023, US 2018 CLINICAL INDICATION: Male, 78 years old with history of mass left kidney; EXAM MEASUREMENTS: Right Kidney: 12.5 x 6.4 x 5.2 cm Left Kidney: 13.4 x 6.3 x 6.7 cm Right Kidney: wnl Left Kidney: 5.6 x 3.0 x 3.8cm cyst mid pole, 3.8 x 2.0 x 3.6cm cyst medial superior pole. No hydrone phrosis. Bladder: wnl Bilateral Jets seen: right jet seen, left jet not seen IMPRESSION: 1. No hydronephrosis on either side. 2. The left renal lesions are confirmed to represent benign cysts measuring 5.6 and 3.8 cm.
[2023-12-09] MEDS ORDERED: NALOXONE 0.4 MG/ML 1 ML VIAL IV PRN (14:24)
[2023-12-09] MEDS ORDERED: CALCIUM CARBONATE 500 MG CHEWABLE PO PRN (14:24)
[2023-12-09] MEDS ORDERED: MAG HYDROX/AL HYDROX/SIMETH 30 ML CUP PO PRN (14:24)
[2023-12-09] MEDS ORDERED: HYDROcodone/APAP 5-325MG 1 EACH TAB PO PRN (14:24)
[2023-12-09] MEDS ORDERED: ACETAMINOPHEN TAB 325 MG TAB PO PRN (14:24)
[2023-12-09] MEDS ORDERED: MECLIZINE 25 MG TAB PO PRN (14:27)
[2023-12-09] MEDS: PANTOPRAZOLE 40 MG TABLET PO SCH (17:12)
[2023-12-09] MEDS: GABAPENTIN 300 MG CAP PO SCH (19:56)
[2023-12-09] MEDS: APIXABAN 5 MG TAB PO SCH (19:56)
[2023-12-09] MEDS: METOPROLOL SUCCINATE (ER) 50 MG TAB.ER.24H PO SCH (19:56)
[2023-12-09] MEDS: FAMOTIDINE 20 MG TAB PO SCH (19:56)
[2023-12-09] MEDS: ATORVASTATIN 40 MG TAB PO SCH (19:56)
[2023-12-10] MEDS: TAMSULOSIN 0.4 MG CAP.ER.24H PO SCH (09:25)
[2023-12-10] MEDS: CYANOCOBALAMIN 500 MCG TAB PO SCH (09:25)
[2023-12-10] MEDS: MULTIVITAMINS, THERA 1 EACH TAB PO SCH (09:25)
[2023-12-10] MEDS: GABAPENTIN 300 MG CAP PO SCH (09:25)
[2023-12-10] MEDS: CHOLECALCIFEROL 25 MCG (1000 IU) TABLET PO SCH (09:25)
[2023-12-10] MEDS: DAPAGLIFLOZIN PROPANEDIOL 10 MG TABLET PO SCH (09:25)
--- NOTE | 2023-12-10 12:56 | P.HPIM ---
History of Present Illness H&P Date: 12/10/23 History of present illness; patient is 78-year-old gentleman with past medical history significant for coronary artery disease status post bypass grafting in 2019 with CHE to LAD and diagonal sequentially done off-pump without crossclamping the calcified aorta, history of aortic stenosis status post TAVR 07/21/2023 complicated by complete heart block requiring permanent pacemaker, history of hypertension, paroxysmal atrial fibrillation on Eliquis, hyperlipidemia, diabetes mellitus type 2, morbid obesity, poor functional capacity, chronic back pain who presented to the hospital for altered mental status. Patient was only recently seen in the hospital for syncopal episode. Patient was already yesterday when while doing cardiac rehab patient was found by nursing staff to be very confused. Patient was also noted to be confused a day prior at which time patient did not new about going to doctors or going to rehab. There was no noticeable weakness of any extremity. No complaint of any slurred speech. No clear loss of consciousness. There was no complaint of shortness of breath. 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 Patient admitted to internal medicine service REVIEW OF SYSTEMS: CONSTITUTIONAL: No fever, no malaise, no fatigue. HEENT: No recent visual problems or hearing problems. Denied any sore throat. CARDIOVASCULAR: No chest pain, orthopnea, PND, no palpitations, no syncope. PULMONARY: No shortness of breath, no cough, no hemoptysis. GASTROINTESTINAL: No diarrhea, no nausea, no vomiting, no abdominal pain. NEUROLOGICAL: As mentioned above HEMATOLOGICAL: Denies any bleeding or petechiae. GENITOURINARY: Denies any burning micturition, frequency, or urgency. MUSCULOSKELETAL/RHEUMATOLOGICAL: Denies any joint pain, swelling, or any muscle pain. ENDOCRINE: Denies any polyuria or polydipsia. The rest of the 14-point review of systems is negative. PHYSICAL EXAMINATION: GENERAL: The patient is alert and oriented x3, not in any acute distress. Well developed, well nourished. HEENT: Pupils are round and equally reacting to light. EOMI. No scleral icterus. No conjunctival pallor. Normocephalic, atraumatic. No pharyngeal erythema. No thyromegaly. CARDIOVASCULAR: S1 and S2 present. No murmurs, rubs, or gallops. PULMONARY: Chest is clear to auscultation, no wheezing or crackles. ABDOMEN: Soft, nontender, nondistended, normoactive bowel sounds. No palpable organomegaly. MUSCULOSKELETAL: No joint swelling or deformity. EXTREMITIES: No cyanosis, clubbing, or pedal edema. NEUROLOGICAL: Gross neurological examination did not reveal any focal deficits. SKIN: No rashes. Assessment and plan Acute metabolic encephalopathy History of coronary artery disease status post CABG in 2019 Aortic stenosis status post TAVR Complete heart block following TAVR requiring permanent pacemaker Hypertension Paroxysmal atrial fibrillation on Eliquis Hyperlipidemia Diabetes mellitus type 2 Morbid obesity Poor functional capacity Chronic back pain Monitor vital signs Monitor CBC Monitor CMP Continue telemetry monitoring Fall precaution Ordered neurochecks . Resume Lipitor Resume Eliquis Resume Toprol EEG ordered Ultrasound of kidneys ordered Cardiology consulted Neurology consult Labs and medication were reviewed.. Continue same treatment. Continue with symptomatic treatment. Resume home medication. Monitor labs and vitals. DVT and GI prophylaxis. Further recommendations as per clinical course of the patient Dictation was produced using [employer] dictation software. please excuse any grammatical, word or spelling errors. Past Medical History Past Medical History: Atrial Fibrillation, Asthma, Blood Disorder, Coronary Artery Disease (CAD), Cancer, CVA/TIA, Diabetes Mellitus, GERD/Reflux, Hyperlipidemia, Hypertension, Osteoarthritis (OA), Prostate Disorder, Sleep Apnea/CPAP/BIPAP, Vascular Disorder Additional Past Medical History / Comment(s): Hx skin cancer, post CABG A fib, TIA years ago, pernicious anemia with monthly injections, hiatal hernia, BPH, venous insufficiency, occasional lower leg/pedal edema, spinal stenosis, herniated disc L1, spinal cyst, chronic low back pain, rare neck pain, benign colon polyp, hx Covid 06/2019. unable to use CPAP History of Any Multi-Drug Resistant Organisms: None Reported Past Surgical History: Bowel Resection, Cholecystectomy, Coronary Bypass/CABG, Heart Catheterization, Hernia Repair, Joint Replacement Additional Past Surgical History / Comment(s): 10/2018 CABG 2 vessels, bilateral knee replacements, right done twice, bowel resection at age 12 yrs d/t obstruction, umbilical hernia repair, skin cancer removed from 3 spots, colonoscopy, back injections, bilateral cataract removals with lens implants. Past Anesthesia/Blood Transfusion Reactions: No Reported Reaction Past Psychological History: No Psychological Hx Reported Additional Psychological History / Comment(s): Pt resides with his spouse. Pt has had increased stress d/t spouse going thru health problems. He is independent. He has a glucometer. 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 Past Drug Use History: None Reported - Past Family History Father Family Medical History: Congestive Heart Failure (CHF), CVA/TIA Additional Family Medical History / Comment(s): at age 68. Brother(s) Family Medical History: Cancer, COPD, Diabetes Mellitus Additional Family Medical History / Comment(s): Heart problems. Mother Family Medical History: Deep Vein Thrombosis (DVT), Myocardial Infarction (SC) Additional Family Medical History / Comment(s): at 79 w/ SC. Medications and Allergies Home Medications Medication Instructions Recorded Confirmed Type Multivitamin [Men's Multi-Vitamin] 1 tab PO DAILY 04/01/15 12/09/23 History Tamsulosin HCl [Flomax] 0.4 mg PO DAILY 10/09/18 12/09/23 History Metoprolol Succinate (ER) [Toprol 50 mg PO BID 12/20/18 12/09/23 History XL] Atorvastatin [Lipitor] 40 mg PO HS 09/22/20 12/09/23 History Cholecalciferol [Vitamin D3 (25 25 mcg PO DAILY 09/22/20 12/09/23 History Mcg = 1000 Iu)] Apixaban [Eliquis] 5 mg PO BID 08/24/21 12/09/23 History Cyanocobalamin (Vitamin B-12) 5,000 mcg PO DAILY 05/07/22 12/09/23 History [Vitamin B-12] Gabapentin [Neurontin] 300 mg PO DAILY 07/14/22 12/09/23 History Canagliflozin [Invokana] 300 mg PO DAILY 07/15/23 12/09/23 History Meclizine [Antivert] 25 mg PO TID PRN #15 tab 12/05/23 12/09/23 Rx Pantoprazole [Protonix] 40 mg PO BID #44 tab 12/05/23 12/09/23 Rx Gabapentin 600 mg PO HS 12/09/23 12/09/23 History Semaglutide [Ozempic] 1 mg SQ DIRECTED 12/09/23 12/09/23 History Allergies Allergy/AdvReac Type Severity Reaction Status Date / Time azithromycin [From Zithromax] AdvReac Nausea & Verified 12/09/23 14:30 Vomiting Physical Exam Vitals: Vital Signs Temp Pulse Pulse Resp BP BP Pulse Ox 12/10/23 03:07 98.8 F 76 18 109/63 94 L 12/09/23 23:07 98.2 F 66 16 108/54 92 L 12/09/23 19:43 97.8 F 70 18 131/77 96 12/09/23 17:13 97.7 F 67 18 144/91 97 12/09/23 16:09 98.0 F 63 14 133/79 97 12/09/23 16:00 97.5 F L 60 16 156/72 96 12/09/23 14:12 61 18 149/88 97 12/09/23 13:37 97.9 F 65 16 156/82 97 12/09/23 13:19 59 L 14 155/81 95 12/09/23 12:03 97.8 F 56 L 16 118/98 95 12/09/23 11:10 60 18 143/64 96 Intake and Output 12/09/23 12/10/23 12/10/23 22:59 06:59 14:59 Intake Total 354 Balance 354 Intake: Oral 354 Other: # Voids 1 Weight 136.078 kg 132.1 kg Results CBC & Chem 7: 12/09/23 10:29 12/09/23 10:29 Labs: Abnormal Lab Results - Last 24 Hours (Table) 12/09/23 12/09/23 12/09/23 Range/Units 10:29 10:29 10:29 RDW 15.9 H (11.5-15.5) % Plt Count 143 L (150-450) k/uL Chloride 108 H (98-107) mmol/L Total Protein 6.2 L (6.3-8.2) g/dL Urine Protein Trace H (Negative) Urine Glucose (UA) 4+ H (Negative) Urine Cocaine Screen Detected H (NotDetected) Thrombosis Risk Factor Assmnt - Choose All That Apply Any of the Below Risk Factors Present?: Yes Each Factor Represents 1 point: Obesity (BMI >25) Other Risk Factors: Yes Each Risk Factor Represents 3 Points: Age 75 years or older Thrombosis Risk Factor Assessment Total Risk Factor Score: 4 Thrombosis Risk Factor Assessment Level: Moderate Risk
--- NOTE | 2023-12-10 14:41 | P.PN ---
Subjective Progress Note Date: 12/10/23 History of present illness: This is this is a 78-year-old male patient of Dr. NASIM Sprague with past medical history of coronary artery disease status post bypass grafting in 2019 with CHE to LAD and diagonal sequentially done off-pump without crossclamping the calcified aorta, history of aortic stenosis status post TAVR 07/21/2023 complicated by complete heart block requiring permanent pacemaker, history of hypertension, paroxysmal atrial fibrillation on Eliquis, hyperlipidemia, diabetes mellitus type 2, morbid obesity, poor functional capacity, chronic back pain. Patient had a recent hospitalization during [employer] downtime at which time he was seen by cardiology for syncope related to diarrhea. Patient also had black stools and was seen by GI status post EGD finding antral gastritis. Patient was discharged on 12/04. Today he was at cardiac rehab and there was concern that patient had confusion. Apparently he had some confusion yesterday did not remember going to the doctor or to cardiac rehab. [facility] was called and patient was brought over the emergency center. He denies having any chest pain or shortness of breath at this time. Staff also relate the patient was crying at the time they saw him in rehab. No fever or chills. Blood pressure 149/78, heart rate 65. EKG: Paced rhythm. Patient states that he has been taking his Eliquis as scheduled. Echocardiogram dated 07/22/2023 reveals EF of 50 to 55%, bioprosthetic aortic valve stable with mean gradient of 15 and no evidence of any perivalvular regurgitation, mild TR. Cardiac catheterization performed 04/21/2023 revealed no disease in the RCA or LM. Minor irregularities in the circumflex. LAD totally occluded in the midportion, CHE to LAD patent sequential graft opacities both LAD and diagonal. 12/09 Patient is seen today in follow-up. Mental status is significantly improved. No complaints of chest pain. No shortness of breath no palpitations. Blood pressure 133/69, heart rate 78, pulse ox 95% on room air. Blood culture is status received. Physical examination: Gen: This is a 78-year-old morbidly obese male in no acute distress VS: reviewed HEENT: Head is atraumatic, normocephalic. Pupils equal, round. Sclerae is anicteric. NECK: Supple. No JVD. LUNGS: Clear to auscultation. No wheezes or rhonchi. No intercostal retractions. HEART: Regular rate and rhythm. No murmur. ABDOMEN: Soft No tenderness. EXTREMITIES: Minimal pedal edema. No calf tenderness. NEUROLOGICAL: Patient is awake, alert and oriented to person and place. Assessment: Mental status changes of unclear etiology to be worked up by attending History of coronary artery disease status post CABG in 2019 Aortic stenosis status post TAVR Complete heart block following TAVR requiring permanent pacemaker Hypertension Paroxysmal atrial fibrillation on Eliquis Hyperlipidemia Diabetes mellitus type 2 Morbid obesity Poor functional capacity Chronic back pain Plan: Continue patient's home cardiac medications Monitor blood culture. Further recommendations to follow based upon clinical course Nurse practitioner note has been reviewed, I agree with documented findings and plan of care. Patient was seen and examined. Objective - Vital Signs Vital signs: Vital Signs Temp 98.8 F 12/10/23 03:07 Pulse 76 12/10/23 03:07 Resp 18 12/10/23 03:07 BP 109/63 12/10/23 03:07 Pulse Ox 94 L 12/10/23 03:07 FiO2 Intake & Output 12/09/23 12/10/23 12/10/23 18:59 06:59 18:59 Weight 136.078 kg 132.1 kg Other: # Voids 1 - Labs CBC & Chem 7: 12/09/23 10:29 12/09/23 10:29 Labs: Abnormal Lab Results - Last 24 Hours (Table) 12/09/23 12/09/23 12/09/23 Range/Units 10:29 10:29 10:29 RDW 15.9 H (11.5-15.5) % Plt Count 143 L (150-450) k/uL Chloride 108 H (98-107) mmol/L Total Protein 6.2 L (6.3-8.2) g/dL Urine Protein Trace H (Negative) Urine Glucose (UA) 4+ H (Negative) Urine Cocaine Screen Detected H (NotDetected)
--- NOTE | 2023-12-10 15:08 | P.CNNES ---
History of Present Illness Consult date: 12/10/23 Requesting physician: Dante Pearson Reason for Consult: confusion, amnesia History of Present Illness: This is a 78-year-old gentleman who was getting rehab therapy yesterday and had confusion as a result he was sent to the ED. according to the patient for about a week ago he was having dizziness and did not feel right which lasted 2 to 3 days and he stated developed some upset stomach as a result he felt the dizzy and feeling off was not addressed because he had other issues. It seems that yesterday he was getting rehab therapy as an outpatient around 9 AM and he was confused lasting for 5 to 10 minutes and he is not able to remember things as well as this past week he felt he was seen by physician in which he performed labs as well as received an injection and that was probably 2 to 3 days ago and does not recall. Yesterday after the episode he had a headache over the bilateral temporal and he felt was bothersome but could not characterize this and denies any nausea vomiting any photophobia or phonophobia. He denies any history of seizure. Denies any tongue bite, urinary incontinence or bowel incontinence. Denies any history of stroke. Denies any history of A-fib. He stated that he has history of aortic valve replacement and has a pacemaker he is on Eliquis. It seems that the patient has a history of aortic stenosis status post TAVR on 07/21/2023 and it is reported that he has history of proximal atrial fibrillation and that while he is on Eliquis according to the medical record. He does have underlying history of diabetes type 2. Denies tobacco use, alcohol use or illicit drug use. He stated that he had remote history of alcohol use. Some of the workup during this hospital visit consisted of White blood cell is within normal limits Ammonia level is less than 9 Sodium, calcium, AST ALT BUN/creatinine are within normal limits TSH is 1.270 CT of the head is reported as limited assessment for acute ischemia dedicated diffuse artifact. Grossly no sizable acute intraparenchymal hemorrhage or mass effect. Personally reviewed the CT and agree with the report. There is artifact that hypodense goes across the axial section. CT angiography of the head and neck is reported as no significant stenosis of carotid bifurcation. No arch central vascular or intracranial occlusion correl ate with MRI as clinically warranted. Urine drug screen is positive for cocaine. Otherwise the rest is not detected. Patient is adamant that he does not use cocaine Review of Systems The positive and negative as per HPI. Past Medical History Past Medical History: Atrial Fibrillation, Asthma, Blood Disorder, Coronary Artery Disease (CAD), Cancer, CVA/TIA, Diabetes Mellitus, GERD/Reflux, Hyperlipidemia, Hypertension, Osteoarthritis (OA), Prostate Disorder, Sleep Apnea/CPAP/BIPAP, Vascular Disorder Additional Past Medical History / Comment(s): Hx skin cancer, post CABG A fib, TIA years ago, pernicious anemia with monthly injections, hiatal hernia, BPH, venous insufficiency, occasional lower leg/pedal edema, spinal stenosis, herniated disc L1, spinal cyst, chronic low back pain, rare neck pain, benign colon polyp, hx Covid 06/2019. unable to use CPAP History of Any Multi-Drug Resistant Organisms: None Reported Past Surgical History: Bowel Resection, Cholecystectomy, Coronary Bypass/CABG, Heart Catheterization, Hernia Repair, Joint Replacement Additional Past Surgical History / Comment(s): 10/2018 CABG 2 vessels, bilateral knee replacements, right done twice, bowel resection at age 12 yrs d/t obstruction, umbilical hernia repair, skin cancer removed from 3 spots, colonoscopy, back injections, bilateral cataract removals with lens implants. Past Anesthesia/Blood Transfusion Reactions: No Reported Reaction Past Psychological History: No Psychological Hx Reported Additional Psychological History / Comment(s): Pt resides with his spouse. Pt has had increased stress d/t spouse going thru health problems. He is independent. He has a glucometer. 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 Past Drug Use History: None Reported - Past Family History Father Family Medical History: Congestive Heart Failure (CHF), CVA/TIA Additional Family Medical History / Comment(s): at age 68. Brother(s) Family Medical History: Cancer, COPD, Diabetes Mellitus Additional Family Medical History / Comment(s): Heart problems. Mother Family Medical History: Deep Vein Thrombosis (DVT), Myocardial Infarction (AR) Additional Family Medical History / Comment(s): at 79 w/ AR. Medications and Allergies Home Medications Medication Instructions Recorded Confirmed Type Multivitamin [Men's Multi-Vitamin] 1 tab PO DAILY 04/01/15 12/09/23 History Tamsulosin HCl [Flomax] 0.4 mg PO DAILY 10/09/18 12/09/23 History Metoprolol Succinate (ER) [Toprol 50 mg PO BID 12/20/18 12/09/23 History XL] Atorvastatin [Lipitor] 40 mg PO HS 09/22/20 12/09/23 History Cholecalciferol [Vitamin D3 (25 25 mcg PO DAILY 09/22/20 12/09/23 History Mcg = 1000 Iu)] Apixaban [Eliquis] 5 mg PO BID 08/24/21 12/09/23 History Cyanocobalamin (Vitamin B-12) 5,000 mcg PO DAILY 05/07/22 12/09/23 History [Vitamin B-12] Gabapentin [Neurontin] 300 mg PO DAILY 07/14/22 12/09/23 History Canagliflozin [Invokana] 300 mg PO DAILY 07/15/23 12/09/23 History Meclizine [Antivert] 25 mg PO TID PRN #15 tab 12/05/23 12/09/23 Rx Pantoprazole [Protonix] 40 mg PO BID #44 tab 12/05/23 12/09/23 Rx Gabapentin 600 mg PO HS 12/09/23 12/09/23 History Semaglutide [Ozempic] 1 mg SQ DIRECTED 12/09/23 12/09/23 History Allergies Allergy/AdvReac Type Severity Reaction Status Date / Time azithromycin [From Zithromax] AdvReac Nausea & Verified 12/09/23 14:30 Vomiting Physical Examination - Vital Signs Vital Signs: Vital Signs Temp Pulse Pulse Resp BP BP Pulse Ox 12/10/23 12:37 72 18 140/60 95 12/10/23 11:15 78 18 12/10/23 10:52 97.1 F L 78 18 133/69 95 12/10/23 03:07 98.8 F 76 18 109/63 94 L 12/09/23 23:07 98.2 F 66 16 108/54 92 L 12/09/23 19:43 97.8 F 70 18 131/77 96 12/09/23 17:13 97.7 F 67 18 144/91 97 12/09/23 16:09 98.0 F 63 14 133/79 97 12/09/23 16:00 97.5 F L 60 16 156/72 96 Intake and Output 12/09/23 12/10/23 12/10/23 22:59 06:59 14:59 Intake Total 472 Balance 472 Intake: Oral 472 Other: # Voids 1 3 Weight 136.078 kg 132.1 kg GENERAL: The patient is an obese gentleman, sitting in a recliner chair and is not in acute distress. NEUROLOGICAL: Higher mental function: The patient is awake, alert, oriented to self, place and time. Patient is following commands. No aphasia and no neglect. Cranial nerves: The pupils are round, equal and reactive to light and accommodation. Visual robin are full to confrontation throughout. Extraocular movement is intact no nystagmus is noted. Facial sensation is normal to touch throughout. The facial strength is normal throughout. Hearing is normal bilaterally to hand rub. Tongue is midline and moved [id number] without any difficulty. No dysarthria is noted. Shoulder shrug is normal bilaterally. Motor: Gait is normal. The strength is 5 over 5 throughout. Normal tone and bulk. Cerebellum: Normal finger to nose heel to torres bilaterally. Sensation: Sensation is normal to touch throughout. Reflexes (right/left): 2+ throughout except patellar limited since had knee replacement. Plantars are downgoing bilaterally. Results - Laboratory Findings CBC and BMP: 12/09/23 10:29 12/09/23 10:29 Abnormal Lab Findings: Abnormal Labs 12/09/23 12/09/23 12/09/23 10:29 10:29 10:29 RDW 15.9 H Plt Count 143 L Chloride 108 H Total Protein 6.2 L Urine Protein Trace H Urine Glucose (UA) 4+ H Urine Cocaine Screen Detected H Assessment and Plan Assessment: This is a 78-year-old gentleman with multiple medical issues who was in cardiac rehab therapy yesterday and in the morning he had episode of confusion between 5 to 10 minutes. He stated that also recently he had medical care by physician as an outpatient and does not recall the workup. He stated that a week ago he has been feeling dizzy and been feeling off. CT of the head is unremarkable for any acute process. Urine drug screen is positive for cocaine but the patient is adamant that he does not use cocaine. Encephalopathy of unknown etiology. On examination no focal deficit History of confusion and feeling off in the last 1 to 2 weeks Positive cocaine on urine drug screen patient denies use History of coronary artery disease status post bypass History of aortic stenosis status post TAVR on 07/2023 complicated by complete heart block requiring permanent pacemaker History of paroxysmal atrial fibrillation on Eliquis Diabetes mellitus Hypertension Hyperlipidemia Morbid obesity Plan: Seen EEG is ordered by the primary team I will get a repeat CT of the head for tomorrow to assess if there is any changes from the first to the second 1. Cannot obtain MRI of the brain since the patient has a pacemaker I ordered vitamin B12 and TSH Patient is on home medication of Eliquis 5 mg twice daily, Lipitor 40 mg nightly Cardiology is consulted Will defer the rest of the medical management to primary and other specialist Plan discussed with the patient and the primary attending Thank for the consultation Dr. Bryant will resume neurology service tomorrow A.M. Time with Patient: Greater than 30
--- NOTE | 2023-12-10 20:51 | EEG ---
ELECTROENCEPHALOGRAM REPORT CLINICAL HISTORY: This is a 78-year-old gentleman with episode of confusion. The video EEG is obtained to evaluate for seizure epileptiform activity. RELEVANT MEDICATION: Gabapentin. EEG TYPE: A routine 21-channel EEG with video using the 10/20 electrode placement system. DESCRIPTION: Wakefulness and drowsiness are obtained. During awake state, the posterior-dominant rhythm consists of sip-ad-affntobu voltage of 8.5 to 9 hertz activity that is well modulated and well sustained. There is no physiological stage 2 sleep architecture. There is no focal slowing. Interictal and ictal is none. ACTIVATION PROCEDURE: Photic stimulation did not evoke a posterior driving response. There is no abnormality during the photic stimulation. Hyperventilation is not performed. CLINICAL INTERPRETATION: This is a normal routine EEG. There is no focal slowing, epileptiform discharge, or seizure on the EEG. A normal routine EEG does not rule out underlying epilepsy. Clinical correlation is recommended. SOMMER / STAR: [id number] /
[2023-12-11 03:14] VITALS: RESP 16
--- NOTE | 2023-12-11 08:37 | CT ---
EXAMINATION TYPE: CT brain wo con DATE OF EXAM: 12/11/2023 COMPARISON: 08/24/2022, 12/09/2023 INDICATION: confusion DLP: 1139.4 mGycm, Automated exposure control for dose reduction was used. CONTRAST: None CT of the brain is performed utilizing 3 mm thick sections through the posterior fossa and 3 mm thick sections through the remaining calvarium. Study is not performed within 24 hours of arrival to the hospital. No abnormal hyperdensity is present to suggest an acute intracranial hemorrhage. No mass lesion is evident. No acute infarcts are evident. There is some mild periventricular white matter hypodensity in the lef t caudate head in the left basal ganglion. Finding appears to be present previously and may be chroni c white matter ischemic changes. Follow-up MRI can be performed as clinically indicated. Ventricles and sulci are appropriate for the patient age. Paranasal sinuses and mastoid air cells within the [id number] are clear. IMPRESSION: 1. No acute intracranial process. Follow up MRI can be performed as clinically indicated. 2. Mild chronic appearing periventricular white matter ischemic type changes, stable from comparisons .
[2023-12-11 09:05] VITALS: TEMP 98.2
--- NOTE | 2023-12-11 11:45 | P.PN ---
Subjective Progress Note Date: 12/11/23 History of present illness: This is this is a 78-year-old male patient of Dr. NASIM Sprague with past medical history of coronary artery disease status post bypass grafting in 2019 with CHE to LAD and diagonal sequentially done off-pump without crossclamping the calcified aorta, history of aortic stenosis status post TAVR 07/21/2023 complicated by complete heart block requiring permanent pacemaker, history of hypertension, paroxysmal atrial fibrillation on Eliquis, hyperlipidemia, diabetes mellitus type 2, morbid obesity, poor functional capacity, chronic back pain. Patient had a recent hospitalization during [employer] downtime at which time he was seen by cardiology for syncope related to diarrhea. Patient also had black stools and was seen by GI status post EGD finding antral gastritis. Patient was discharged on 12/04. Today he was at cardiac rehab and there was concern that patient had confusion. Apparently he had some confusion yesterday did not remember going to the doctor or to cardiac rehab. [facility] was called and patient was brought over the emergency center. He denies having any chest pain or shortness of breath at this time. Staff also relate the patient was crying at the time they saw him in rehab. No fever or chills. Blood pressure 149/78, heart rate 65. EKG: Paced rhythm. Patient states that he has been taking his Eliquis as scheduled. Echocardiogram dated 07/22/2023 reveals EF of 50 to 55%, bioprosthetic aortic valve stable with mean gradient of 15 and no evidence of any perivalvular regurgitation, mild TR. Cardiac catheterization performed 04/21/2023 revealed no disease in the RCA or LM. Minor irregularities in the circumflex. LAD totally occluded in the midportion, CHE to LAD patent sequential graft opacities both LAD and diagonal. 12/09 Patient is seen today in follow-up. Mental status is significantly improved. No complaints of chest pain. No shortness of breath no palpitations. Blood pressure 133/69, heart rate 78, pulse ox 95% on room air. Blood culture is status received. 12/10 Patient is seen today in follow-up. Patient states he is feeling well. He still cannot recall what happened during the time of confusion. Mental status is completely back to normal. Blood pressure 117/75, heart rate 74, pulse ox 96% on room air. Blood culture no growth at 24 hours. Patient has been afebrile. Physical examination: Gen: This is a 78-year-old morbidly obese male in no acute distress VS: reviewed HEENT: Head is atraumatic, normocephalic. Pupils equal, round. Sclerae is anicteric. NECK: Supple. No JVD. LUNGS: Clear to auscultation. No wheezes or rhonchi. No intercostal retractions. HEART: Regular rate and rhythm. No murmur. ABDOMEN: Soft No tenderness. EXTREMITIES: Minimal pedal edema. No calf tenderness. NEUROLOGICAL: Patient is awake, alert and oriented x3. Assessment: Mental status changes of unclear etiology to be worked up by attending History of coronary artery disease status post CABG in 2019 Aortic stenosis status post TAVR Complete heart block following TAVR requiring permanent pacemaker Hypertension Paroxysmal atrial fibrillation on Eliquis Hyperlipidemia Diabetes mellitus type 2 Morbid obesity Poor functional capacity Chronic back pain Plan: Continue patient's home cardiac medications Monitor blood culture. Cardiology will sign off this case and follow on an as-needed basis. Please reconsult for any new concerns. Patient may follow-up in the office with Dr. NASIM Sprague in one to 2 weeks. Nurse practitioner note has been reviewed, I agree with documented findings and plan of care. Patient was seen and examined. Objective - Vital Signs Vital signs: Vital Signs Temp 98.2 F 12/11/23 09:03 Pulse 74 12/11/23 09:03 Resp 16 12/11/23 09:03 BP 117/75 12/11/23 09:03 Pulse Ox 96 12/11/23 09:03 FiO2 Intake & Output 12/10/23 12/11/23 12/11/23 18:59 06:59 18:59 Intake Total 590 118 Balance 590 118 Weight 131.2 kg Intake: Oral 590 118 Other: # Voids 3 2 - Labs CBC & Chem 7: 12/09/23 10:29 12/09/23 10:29 Labs: Abnormal Lab Results - Last 24 Hours (Table) 12/10/23 Range/Units 15:48 Vitamin B12 2106.0 H (200.0-944.0) pg/mL Microbiology - Last 24 Hours (Table) 12/09/23 11:25 Blood Culture - Preliminary Blood
[2023-12-11 12:02] VITALS: BP 145/81; PULSE 66
[2023-12-11] MEDS: ASPIRIN 81 MG PO SCH (12:54)
[2023-12-11 13:10] LABS: Appearance,Urine Clear (Clear); Bilirubin,Urine Negative (Negative); Blood,Urine Trace (Negative); Color,Urine Colorless; Glucose,Urine (UA) 4+ (Negative); Ketones,Urine Negative (Negative); Leukocyte Esterase,Urine Negative (Negative); Mucus,Urine Rare /hpf; Nitrite,Urine Negative (Negative); PH, Urine 5.5 (5.0-8.0); Protein,Urine 1+ (Negative); RBC,Urine <1 /hpf (0-5); Specific Gravity,Urine 1.026 (1.001-1.035); Urobilinogen,Urine <2.0 mg/dL (<2.0); WBC,Urine <1 /hpf (0-5)
--- NOTE | 2023-12-11 15:21 | P.DS ---
Providers Date of admission: 12/09/23 14:26 Expected date of discharge: 12/11/23 Attending physician: Dante Pearson MD Consults: 12/09/23 14:49 Consult Physician Routine Consulting Provider: Nolan Cedeno Consult Reason/Comments: Hx a fib, amnestic episode at cardiac rehab Do you want consulting provider notified?: Already Contacted 12/10/23 10:40 Consult Physician Routine Consulting Provider: Angel Stein Consult Reason/Comments: Confusion, amnesia Do you want consulting provider notified?: Yes Primary care physician: Triny Weathers Hospital Course: Discharge diagnoses: Acute metabolic encephalopathy: Resolved History of CAD status post CABG in 2019 Aortic stenosis status post TAVR Complete heart block following TAVR requiring permanent pacemaker Hypertension Paroxysmal atrial fibrillation on Eliquis Hypertension Hyperlipidemia Diabetes mellitus Morbid obesity Chronic back pain: Patient's mentation improved. Initial CT head and repeat CT head remained unremarkable. EEG unremarkable. Patient's mentation improved and remained unremarkable. Patient's home medications resumed at discharge Evaluated by neurology and cardiology. Hospital course: patient is 78-year-old gentleman with past medical history significant for coronary artery disease status post bypass grafting in 2019 with CHE to LAD and diagonal sequentially done off-pump without crossclamping the calcified aorta, history of aortic stenosis status post TAVR 07/21/2023 complicated by complete heart block requiring permanent pacemaker, history of hypertension, paroxysmal atrial fibrillation on Eliquis, hyperlipidemia, diabetes mellitus type 2, morbid obesity, poor functional capacity, chronic back pain who presented to the hospital for altered mental status. Patient was only recently seen in the hospital for syncopal episode. Patient was already yesterday when while doing cardiac rehab patient was found by nursing staff to be very confused. Patient was also noted to be confused a day prior at which time patient did not new about going to doctors or going to rehab. There was no noticeable weakness of any extremity. No complaint of any slurred speech. No clear loss of consciou sness. There was no complaint of shortness of breath. 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 Patient was admitted hospital for further evaluation and management of altered mental status. Initial CT head was unremarkable for any acute process. Urine drug screen was positive, but patient denied use of cocaine. Patient mentation remained unremarkable during hospitalization. Patient was evaluated by neurology. Vitamin B-12 and TSH was unremarkable. Repeat CT head was also unremarkable. EEG unremarkable. Patient was also evaluated by cardiology, no further cardiac workup per cardiology. Recommended to resume patient's home medication. Patient condition vital stable at discharge. Please refer to med rec and assessment plan for further details. Follow-up with PCP. PHYSICAL EXAMINATION: GENERAL: The patient is A&O x3, NAD HEENT: EOMI, Sclerae anicteric, Moist Mucous membranes Neck: Supple, Non tender, No JVD PULMONARY: Equal breath souds B/L, No wheezing, No crackles. CARDIOVASCULAR: S1, S2 present. No murmurs, rubs, or gallops. ABDOMEN: Soft, nontender, nondistended, normoactive bowel sounds. No guarding or rebound tenderness. MUSCULOSKELETAL: No edema, No cyanosis. No clubbing. Normal ROM. Intact peripheral pulses. EXTREMITIES: No cyanosis, clubbing, or pedal edema. NEUROLOGICAL: CN 2-12 grossly intact. No FND SKIN: No rashes. Dictation was produced using [employer] dictation software. please excuse any grammatical, word or spelling errors. Patient Condition at Discharge: Fair Plan - Discharge Summary Discharge Rx Participant: No New Discharge Prescriptions: New Aspirin 81 mg PO DAILY #30 tab Continue Multivitamin [Men's Multi-Vitamin] 1 tab PO DAILY Tamsulosin HCl [Flomax] 0.4 mg PO DAILY Metoprolol Succinate (ER) [Toprol XL] 50 mg PO BID Atorvastatin [Lipitor] 40 mg PO HS Meclizine [Antivert] 25 mg PO TID PRN #15 tab PRN Reason: Vertigo Pantoprazole [Protonix] 40 mg PO BID #44 tab Cholecalciferol [Vitamin D3 (25 Mcg = 1000 Iu)] 25 mcg PO DAILY Apixaban [Eliquis] 5 mg PO BID Cyanocobalamin (Vitamin B-12) [Vitamin B-12] 5,000 mcg PO DAILY Gabapentin [Neurontin] 300 mg PO DAILY Canagliflozin [Invokana] 300 mg PO DAILY Gabapentin 600 mg PO HS Semaglutide [Ozempic] 1 mg SQ DIRECTED Discharge Medication List Multivitamin [Men's Multi-Vitamin] 1 tab PO DAILY 04/01/15 [History] Tamsulosin HCl [Flomax] 0.4 mg PO DAILY 10/09/18 [History] Metoprolol Succinate (ER) [Toprol XL] 50 mg PO BID 12/20/18 [History] Atorvastatin [Lipitor] 40 mg PO HS 09/22/20 [History] Cholecalciferol [Vitamin D3 (25 Mcg = 1000 Iu)] 25 mcg PO DAILY 09/22/20 [History] Apixaban [Eliquis] 5 mg PO BID 08/24/21 [History] Cyanocobalamin (Vitamin B-12) [Vitamin B-12] 5,000 mcg PO DAILY 05/07/22 [History] Gabapentin [Neurontin] 300 mg PO DAILY 07/14/22 [History] Canagliflozin [Invokana] 300 mg PO DAILY 07/15/23 [History] Meclizine [Antivert] 25 mg PO TID PRN #15 tab 12/05/23 [Rx] Pantoprazole [Protonix] 40 mg PO BID #44 tab 12/05/23 [Rx] Gabapentin 600 mg PO HS 12/09/23 [History] Semaglutide [Ozempic] 1 mg SQ DIRECTED 12/09/23 [History] Aspirin 81 mg PO DAILY #30 tab 12/11/23 [Rx] Follow up Appointment(s)/Referral(s): Triny Weathers DO [Primary Care Provider] - 1-2 days Activity/Diet/Wound Care/Special Instructions: Follow-up with the PCP in 1 week. Discharge Disposition: HOME SELF-CARE
--- NOTE | 2023-12-12 09:49 | P.PN ---
Subjective Progress Note Date: 12/11/23 Patient initially seen by Dr. Angel Stein. Please refer to his note for details. Patient is a 75-year-old male with episode of confusion. His urine drug screen was positive for cocaine, but patient completely denies any use of cocaine. Patient's EEG was normal. Patient had a repeat EEG performed today. Patient states on 12/08/2023, he received some shot and then he lost memory for about 15 to 20 minutes. There were no other focal symptoms. And on , 12/09/2023, he was in cardiac rehab when he did not look good. He did not remember what was happening. Due to these episodes, he was brought to the hospital. At present he feels fine, and wants to go home. Denies any headache, or any focal symptoms. Patient had undergone TAVR in on 07/21/2023. Some of the workup during this hospital visit consisted of: White blood cell is within normal limits Ammonia level is less than 9 Sodium, calcium, AST ALT BUN/creatinine are within normal limits TSH is 1.270 CT of the head is reported as limited assessment for acute ischemia dedicated diffuse artifact. Grossly no sizable acute intraparenchymal hemorrhage or mass effect. Personally reviewed the CT and agree with the report. There is artifact that hypodense goes across the axial section. CT angiography of the head and neck is reported as no significant stenosis of carotid bifurcation. No arch central vascular or intracranial occlusion correlate with MRI as clinically warranted. Urine drug screen is positive for cocaine. Otherwise the rest is not detected. Patient is adamant that he does not use cocaine Objective - Vital Signs Vital signs: Vital Signs Temp 98.2 F 12/11/23 09:03 Pulse 66 12/11/23 12:00 Resp 16 12/11/23 12:00 BP 145/81 12/11/23 12:00 Pulse Ox 96 12/11/23 12:00 FiO2 Intake & Output 12/10/23 12/11/23 12/11/23 18:59 06:59 18:59 Intake Total 590 118 Balance 590 118 Weight 131.2 kg Intake: Oral 590 118 Other: # Voids 3 2 - Exam Patient's mental status, speech and language functions are normal. No aphasia or dysarthria. Pupils are equal, round and reacting, visual robin are full, extraocular muscles are intact with no nystagmus. Face is symmetric. Hearing is normal. On muscle strength there is no pronator drift of the strength is normal. Sensations are equal with no neglect. No ataxia. - Labs CBC & Chem 7: 12/09/23 10:29 12/09/23 10:29 Labs: Abnormal Lab Results - Last 24 Hours (Table) 12/10/23 Range/Units 15:48 Vitamin B12 2106.0 H (200.0-944.0) pg/mL Microbiology - Last 24 Hours (Table) 12/09/23 11:25 Blood Culture - Preliminary Blood Assessment and Plan Assessment: This is a 78-year-old gentleman with multiple medical issues who was in cardiac rehab therapy on 12/09/2023, when he had episode of confusion between 5 to 10 minutes. He stated that also recently he had medical care by physician as an outpatient and does not recall the workup. He stated that a week ago he has been feeling dizzy and been feeling off. CT of the head is unremarkable for any acute process. Urine drug screen is positive for cocaine but the patient is adamant that he does not use cocaine. Encephalopathy of unknown etiology. On examination no focal deficit. Rule out TIA. History of confusion and feeling off in the last 1 to 2 weeks Positive cocaine on urine drug screen patient denies use History of coronary artery disease status post bypass History of aortic stenosis status post TAVR on 07/2023 complicated by complete heart block requiring permanent pacemaker History of paroxysmal atrial fibrillation on Eliquis Diabetes mellitus Hypertension Hyperlipidemia Morbid obesity Plan: Repeat CT head performed today, which revealed no acute intracranial process. Mild chronic appearing periventricular white matter ischemic type change. Stable from comparison. I personally reviewed CT head, and on my review, there is evidence of chronic areas of ischemia in the left anterior external capsule and somewhat in the bilateral anterior limb of internal capsules. These are present on the previous CT scans as well. No acute process. EEG was normal. No focal slowing, epileptiform discharges or seizure on the EEG. Cannot obtain MRI of the brain since the patient has a pacemaker B12 is 2106 and TSH 1.43, which are normal. Patient is on home medication of Eliquis 5 mg twice daily, Lipitor 40 mg nightly I discussed with cardiology about possibility of JOSÉ. Patient had a JOSÉ performed previous to TAVR but not afterwards. Dr. Mcfadden did not feel it was necessary, but was okay to perform if clinically indicated. I discussed with patient, who absolutely does not want to stay in the hospital till Wednesday. Patient will be started on aspirin 81 mg daily along with his Eliquis. Cardiology cleared to be started on aspirin besides his Eliquis. Patient will follow-up with his technical business systems analyst Dr. Sprague about considering JOSÉ outpatient. Neurologically clear for discharge.
[2023-12-12 13:06] LABS: Urine Alcohol Negative (Negative); Urine Barbiturate Negative (Negative); Urine Cocaine Negative (Negative); Urine Methadone Negative (Negative); Urine Opiates Negative (Negative); Urine Phencyclidine Negative (Negative)
== END 2023-12-11 15:54 | disposition home or self-care (01) ==
LOC: EC 09:52 → 3SCARD 14:26
PROVIDERS: ADMIT Internal Medicine; ATTEND Internal Medicine
DX: G93.41 Metabolic encephalopathy (principal); I10 Essential (primary) hypertension; I48.0 Paroxysmal atrial fibrillation; I25.10 Atherosclerotic heart disease of native coronary artery without angina pectoris; J45.909 Unspecified asthma, uncomplicated; E11.9 Type 2 diabetes mellitus without complications; K21.9 Gastro-esophageal reflux disease without esophagitis; E78.5 Hyperlipidemia, unspecified; G47.30 Sleep apnea, unspecified; N40.0 Benign prostatic hyperplasia without lower urinary tract symptoms; I87.2 Venous insufficiency (chronic) (peripheral); I25.2 Old myocardial infarction; I44.2 Atrioventricular block, complete; I35.0 Nonrheumatic aortic (valve) stenosis; G89.29 Other chronic pain; M54.9 Dorsalgia, unspecified; F14.10 Cocaine abuse, uncomplicated; E66.01 Morbid (severe) obesity due to excess calories; Z68.41 Body mass index [BMI] 40.0-44.9, adult; Z85.828 Personal history of other malignant neoplasm of skin; Z86.16 Personal history of COVID-19; Z86.73 Personal history of transient ischemic attack (TIA), and cerebral infarction without residual deficits; Z95.1 Presence of aortocoronary bypass graft; Z95.0 Presence of cardiac pacemaker; Z95.3 Presence of xenogenic heart valve; Z79.01 Long term (current) use of anticoagulants; Z79.899 Other long term (current) drug therapy; Z79.84 Long term (current) use of oral hypoglycemic drugs; Z79.82 Long term (current) use of aspirin; Z79.85 Long-term (current) use of injectable non-insulin antidiabetic drugs; Z88.1 Allergy status to other antibiotic agents
CPT/HCPCS: 36415; 70450; 70496; 70498; 71046; 74177; 76770; 80053; 80143; 80179; 80306; 80320; 81001; 81003; 82140; 82607; 83690; 84443; 84484; 85025; 85610; 85730; 87040; 93005; 95819; 99285

== ENCOUNTER 2024-03-06 09:43 | Emergency (ER) | payer MEDICARE, BC ==
[2024-03-06 09:51] LABS: Glucose,Whole Blood 87 mg/dL (70-110)
[2024-03-06] MEDS: ASPIRIN 81 MG PO STA (10:13)
[2024-03-06] MEDS: lisinopriL 10 MG TAB PO STA (10:13)
[2024-03-06] MEDS: APIXABAN 5 MG TAB PO STA (10:13)
[2024-03-06] MEDS: SODIUM CHLORIDE 0.9% 500 ML 500 ML IV STA (10:14)
[2024-03-06] MEDS: PANTOPRAZOLE 40 MG/10 ML VIAL IVP STA (10:14)
[2024-03-06 10:17] LABS: Anisocytosis Slight; Basophils % (A) 0 %; Eosinophils # (A) 0.2 k/uL (0-0.7); Eosinophils % (A) 3 %; HCT 38.8 % (39.0-53.0); HGB 12.5 gm/dL (13.0-17.5); Hypochromasia Slight; Lymphocytes # (A) 1.7 k/uL (1.0-4.8); Lymphocytes % (A) 23 %; MCH 26.1 pg (25.0-35.0); MCHC 32.1 g/dL (31.0-37.0); MCV 81.2 fL (80.0-100.0); Mean Platelet Volume 7.8; Monocytes # (A) 0.6 k/uL (0-1.0); Monocytes % (A) 8 %; Neutrophils # (A) 4.7 k/uL (1.3-7.7); Neutrophils % (A) 64 %; Platelet Count 164 k/uL (150-450); RBC 4.78 m/uL (4.30-5.90); WBC 7.4 k/uL (3.8-10.6)
[2024-03-06 10:30] LABS: Partial Thromboplastin Time 25.8 sec (22.0-30.0); Prothrombin Time 11.3 sec (10.0-12.5)
[2024-03-06 10:33] LABS: ALT 24 U/L (4-49); AST 28 U/L (17-59); African American GFR (CKD) 75 (>60 ml/min/1.73 sqM); Albumin 3.6 g/dL (3.5-5.0); Alkaline Phosphatase 102 U/L (38-126); Anion Gap 5 mmol/L; Blood Urea Nitrogen 19 mg/dL (9-20); Calcium 8.9 mg/dL (8.4-10.2); Carbon Dioxide 22 mmol/L (22-30); Chloride 112 mmol/L (98-107); Glucose 88 mg/dL (74-99); Magnesium 1.7 mg/dL (1.6-2.3); Non-African American GFR(CKD) 65 (>60 ml/min/1.73 sqM); Sodium 139 mmol/L (137-145); Total Bilirubin 0.8 mg/dL (0.2-1.3); Total Protein 6.2 g/dL (6.3-8.2)
[2024-03-06 10:40] LABS: NT-Pro-B-Type Natriuretic Pept 303 pg/mL
--- NOTE | 2024-03-06 10:40 | ED ---
General Adult HPI - General Chief complaint: Chest Pain Stated complaint: Chest pain Time Seen by Provider: 03/06/24 09:49 Source: patient, RN notes reviewed, old records reviewed Mode of arrival: ambulatory Limitations: no limitations - History of Present Illness Initial comments: Patient is a 78-year-old male who presents emergency department complaining of chest pain. Patient has a history of a TAVR, CABG, A-fib, pacemaker, hyperlipidemia, diabetes, obesity, on Eliquis who presents emergency department chest pain. Follows up with electronics technician Dr. NASIM Sprague. Was at cardiac rehab upstairs when he began experiencing chest pain after using the hand bicycle. States patient was also having symptoms similar over the weekend when he had to walk to the [employer] [facility] football game. States it is worse on exertion. Resolves with rest. Currently has no chest pain symptoms. States they resolved on their own using the hand bike earlier. Presents as an 17 from cardiac rehab. States the chest pain was located over the left side of his chest with no radiation. No associated significant shortness of breath, nausea, vomiting. Was mildly sweaty when it occurred but that resolved as well. Resolved with rest. Denies any other acute complaints at this time. Presents for further evaluation. - Related Data Home Medications Medication Instructions Recorded Confirmed Multivitamin [Men's Multi-Vitamin] 1 tab PO DAILY 04/01/15 03/06/24 Tamsulosin HCl [Flomax] 0.4 mg PO DAILY 10/09/18 03/06/24 Metoprolol Succinate (ER) [Toprol 50 mg PO BID 12/20/18 03/06/24 XL] Atorvastatin [Lipitor] 40 mg PO HS 09/22/20 03/06/24 Cholecalciferol [Vitamin D3 (25 25 mcg PO DAILY 09/22/20 03/06/24 Mcg = 1000 Iu)] Apixaban [Eliquis] 5 mg PO BID 08/24/21 03/06/24 Cyanocobalamin (Vitamin B-12) 5,000 mcg PO DAILY 05/07/22 03/06/24 [Vitamin B-12] Gabapentin [Neurontin] 300 mg PO DAILY 07/14/22 03/06/24 Canagliflozin [Invokana] 300 mg PO DAILY 07/15/23 03/06/24 Gabapentin 600 mg PO HS 12/09/23 03/06/24 HYDROcodone/APAP 7.5-325MG [[place] 1 tab PO Q6H PRN 03/06/24 03/06/24 7.5-325] Pantoprazole [Protonix] 40 mg PO DAILY 03/06/24 03/06/24 Tirzepatide [Mounjaro] 7.5 mg SQ TH 03/06/24 03/06/24 Allergies Allergy/AdvReac Type Severity Reaction Status Date / Time azithromycin [From Zithromax] AdvReac Nausea & Verified 03/06/24 09:58 Vomiting Review of Systems ROS Statement: Those systems with pertinent positive or pertinent negative responses have been documented in the HPI. Review of Systems: CONST: Denies fever EYES: Denies blurry vision ENT: Denies nasal congestion C/V: Denies Chest pain RESP: Denies shortness of breath GI: Denies abdominal pain : Denies dysuria SKIN: Denies rash. MSK: Denies joint pain. NEURO: Denies headache ROS Other: All systems not noted in ROS Statement are negative. Past Medical History Past Medical History: Atrial Fibrillation, Asthma, Blood Disorder, Coronary Artery Disease (CAD), Cancer, CVA/TIA, Diabetes Mellitus, GERD/Reflux, Hyperlipidemia, Hypertension, Osteoarthritis (OA), Prostate Disorder, Sleep Apnea/CPAP/BIPAP, Vascular Disorder Additional Past Medical History / Comment(s): Hx skin cancer, post CABG A fib, TIA years ago, pernicious anemia with monthly injections, hiatal hernia, BPH, venous insufficiency, occasional lower leg/pedal edema, spinal stenosis, herniated disc L1, spinal cyst, chronic low back pain, rare neck pain, benign colon polyp, hx Covid 06/2019. unable to use CPAP History of Any Multi-Drug Resistant Organisms: None Reported Past Surgical History: Bowel Resection, Cholecystectomy, Coronary Bypass/CABG, Heart Catheterization, Hernia Repair, Joint Replacement Additional Past Surgical History / Comment(s): 10/2018 CABG 2 vessels, bilateral knee replacements, right done twice, bowel resection at age 12 yrs d/t obstruction, umbilical hernia repair, skin cancer removed from 3 spots, colonoscopy, back injections, bilateral cataract removals with lens implants. Past Anesthesia/Blood Transfusion Reactions: No Reported Reaction Past Psychological History: No Psychological Hx Reported Smoking Status: Never smoker Past Alcohol Use History: None Reported Past Drug Use History: None Reported - Past Family History Father Family Medical History: Congestive Heart Failure (CHF), CVA/TIA Additional Family Medical History / Comment(s): at age 68. Brother(s) Family Medical History: Cancer, COPD, Diabetes Mellitus Additional Family Medical History / Comment(s): Heart problems. Mother Family Medical History: Deep Vein Thrombosis (DVT), Myocardial Infarction (ND) Additional Family Medical History / Comment(s): at 79 w/ ND. General Exam - General Exam Comments Initial Comments: General: Appears in no acute distress. HEAD: Normal with no signs of head trauma. EYES: PERRLA, EOMI, conjunctiva normal, no discharge. ENT: Hearing grossly intact, normal oropharynx. RESPIRATORY: Clear breath sounds bilaterally. No wheezes, rales, or rhonchi. C/V: Regular rate and rhythm. S1 and S2 auscultated, no edema, peripheral pulses 2+ and intact throughout ABD: Abd is soft, nontender, nondistended EXT: Normal range of motion, no obvious deformity SKIN: No rashes or lesions observed on exposed skin. NEURO: Alert and oriented x 4. Limitations: no limitations Course Vital Signs 03/06/24 03/06/24 03/06/24 09:45 10:47 11:55 Temperature 97.8 F Pulse Rate 76 69 68 Respiratory 20 20 20 Rate Blood Pressure 157/64 121/63 116/65 O2 Sat by Pulse 98 95 98 Oximetry 03/06/24 03/06/24 12:04 14:02 Temperature 97.9 F Pulse Rate 70 71 Respiratory 18 18 Rate Blood Pressure 131/75 126/73 O2 Sat by Pulse 97 95 Oximetry Medical Decision Making - Medical Decision Making Was pt. sent in by a medical professional or institution (, PA, ROADWAY DESIGNER, urgent care, hospital, or long-term...) When possible be specific @ -Sent from cardiac rehab for evaluation for exertional chest pain Did you speak to anyone other than the patient for history (EMS, parent, family, police, friend...)? What history was obtained from this source @ -No Did you review nursing and triage notes (agree or disagree)? Why? @ -I reviewed and agree with nursing and triage notes Were old charts reviewed (outside hosp., previous admission, EMS record, old EKG, old radiological studies, urgent care reports/EKG's, long-term records)? Report findings @ -Reviewed prior EKGs from November 2023. No acute dynamic changes. Differential Diagnosis (chest pain, altered mental status, abdominal pain women, abdominal pain men, vaginal bleeding, weakness, fever, dyspnea, syncope, headache, dizziness, GI bleed, back pain, seizure, CVA, palpatations, mental health, musculoskeletal)? @ -Differential Chest Pain: Stable Angina, Unstable Angina, STEMI, NSTEMI Aortic Dissection, Pneumothorax, Musculoskeletal, Esophageal Spasm GERD, Cholecystitis, Pancreatitis, Zoster, this is not meant to be an all-inclusive list. EKG interpreted by me (3pts min.). @ -As above X-rays interpreted by me (1pt min.). @ -Chest x-ray reveals no obvious acute cardiopulmonary process. CT interpreted by me (1pt min.). @ -None done U/S interpreted by me (1pt. min.). @ -None done What testing was considered but not performed or refused? (CT, X-rays, U/S, labs)? Why? @ -None What meds were considered but not given or refused? Why? @ -None Did you discuss the management of the patient with other professionals (professionals i.e. Dr., PA, ROADWAY DESIGNER, lab, RT, psych nurse, social media senior associate, contact agent, teacher, aoc director intelligence officer, complex case manager)? Give summary @ -I discussed the case with patient's electronics technician, Dr. NASIM Sprague who is rounding in the emergency department. We discussed the HPI and presenting complaints. If patient is asymptomatic and negative troponins, Dr. Sprague is recommending the patient being discharged home with close follow-up. Was smoking cessation discussed for >3mins.? @ -No Was critical care preformed (if so, how long)? @ -No Were there social determinants of health that impacted care today? How? (Homelessness, low income, unemployed, alcoholism, drug addiction, transportation, low edu. Level, literacy, decrease access to med. care, skilled nursing, rehab)? @ -No Was there de-escalation of care discussed even if they declined (Discuss DNR or withdrawal of care, Hospice)? DNR status @ -No What co-morbidities impacted this encounter? (DM, HTN, Smoking, COPD, CAD, Cancer, CVA, ARF, Chemo, Hep., AIDS, mental health diagnosis, sleep apnea, morbid obesity)? @ -CAD, A-fib, pacemaker, TAVR Was patient admitted / discharged? Hospital course, mention meds given and route, prescriptions, significant lab abnormalities, going to OR and other pertinent info. @ -Based on patient's presentation and physical exam, presents with exertional chest pain. This has occurred recently. Does not use his nitroglycerin tablets at home. He has an extensive cardiac history. Vitals currently within acceptable limits. Currently has no complaints. Will obtain cardiac workup. Patient was in agreement this plan. EKG x 2 shows no obvious acute cardiopulmonary process. No acute ischemic changes. I ran into patient's electronics technician, Dr. NASIM Sprague in the emergency department. We reviewed the patient's case. We discussed the HPI and presenting complaints. If patient is asymptomatic and negative troponins, Dr. Sprague is recommending the patient being discharged home with close follow-up. Patient's laboratory studies unremarkable. Troponin indeterminate. Remainder the labs unremarkable. Chest x-ray reveals no obvious acute cardiopulmonary process. Patient remains asymptomatic at this time. I discussed the results with the patient. We will obtain a 3-hour troponin and observe the patient for multiple hours here in the department. He was in agreement this plan. Repeat troponin remains indeterminant, as well as lower. I discussed results with patient. He remains asymptomatic. We set him up with a follow-up appointment on Wednesday with his electronics technician and recommended return to the emergency department for any worsening symptoms. He was in agreement this plan. I instructed the patient to follow up with their PCP in the next 1-3 days. I explained that the patient should return to the emergency department if they exp erience any worsening symptoms. Strict return precautions were discussed with the patient. The patient expressed understanding of these instructions. I answered all questions that the patient had. The patient was discharged home in good condition with their prescriptions and follow up information. Undiagnosed new problem with uncertain prognosis? @ -No Drug Therapy requiring intensive monitoring for toxicity (Heparin, Nitro, Insulin, Cardizem)? @ -No Were any procedures done? @ -No Diagnosis/symptom? @ - chest pain Acute, or Chronic, or Acute on Chronic? @ -Acute on chronic Uncomplicated (without systemic symptoms) or Complicated (systemic symptoms)? @ -Uncomplicated Side effects of treatment? @ -None Exacerbation, Progression, or Severe Exacerbation] @ -No Poses a threat to life or bodily function? @ -Unlikely at this time - Lab Data Result diagrams: 03/06/24 10:03 03/06/24 10:03 Lab Results 03/06/24 03/06/24 03/06/24 Range/Units 09:49 10:03 10:03 WBC 7.4 (3.8-10.6) k/uL RBC 4.78 (4.30-5.90) m/uL Hgb 12.5 L (13.0-17.5) gm/dL Hct 38.8 L (39.0-53.0) % MCV 81.2 (80.0-100.0) fL MCH 26.1 (25.0-35.0) pg MCHC 32.1 (31.0-37.0) g/dL RDW 16.0 H (11.5-15.5) % Plt Count 164 (150-450) k/uL MPV 7.8 Neutrophils % 64 % Lymphocytes % 23 % Monocytes % 8 % Eosinophils % 3 % Basophils % 0 % Neutrophils # 4.7 (1.3-7.7) k/uL Lymphocytes # 1.7 (1.0-4.8) k/uL Monocytes # 0.6 (0-1.0) k/uL Eosinophils # 0.2 (0-0.7) k/uL Basophils # 0.0 (0-0.2) k/uL Hypochromasia Slight Anisocytosis Slight PT 11.3 (10.0-12.5) sec INR 1.0 (<1.2) APTT 25.8 (22.0-30.0) sec Sodium (137-145) mmol/L Potassium (3.5-5.1) mmol/L Chloride (98-107) mmol/L Carbon Dioxide (22-30) mmol/L Anion Gap mmol/L BUN (9-20) mg/dL Creatinine (0.66-1.25) mg/dL Est GFR (CKD-EPI)AfAm (>60 ml/min/1.73 sqM) Est GFR (CKD-EPI)NonAf (>60 ml/min/1.73 sqM) Glucose (74-99) mg/dL POC Glucose (mg/dL) 87 (70-110) mg/dL POC Glu Field Map Editor ID Alfred Sierra Calcium (8.4-10.2) mg/dL Magnesium (1.6-2.3) mg/dL Total Bilirubin (0.2-1.3) mg/dL AST (17-59) U/L ALT (4-49) U/L Alkaline Phosphatase (38-126) U/L Troponin I (0.000-0.034) ng/mL NT-Pro-B Natriuret Pep pg/mL Total Protein (6.3-8.2) g/dL Albumin (3.5-5.0) g/dL Urine Color Urine Appearance (Clear) Urine pH (5.0-8.0) Ur Specific [place] (1.001-1.035) Urine Protein (Negative) Urine Glucose (UA) (Negative) Urine Ketones (Negative) Urine Blood (Negative) Urine Nitrite (Negative) Urine Bilirubin (Negative) Urine Urobilinogen (<2.0) mg/dL Ur Leukocyte Esterase (Negative) Urine RBC (0-5) /hpf Urine WBC (0-5) /hpf Ur Squamous Epith Cells (0-4) /hpf Hyaline Casts (0-2) /lpf Urine Mucus (None) /hpf Influenza Type A (PCR) (Not Detectd) Influenza Type B (PCR) (Not Detectd) RSV (PCR) (Not Detectd) SARS-CoV-2 (PCR) (Not Detectd) 03/06/24 03/06/24 03/06/24 Range/Units 10:03 10:03 10:03 WBC (3.8-10.6) k/uL RBC (4.30-5.90) m/uL Hgb (13.0-17.5) gm/dL Hct (39.0-53.0) % MCV (80.0-100.0) fL MCH (25.0-35.0) pg MCHC (31.0-37.0) g/dL RDW (11.5-15.5) % Plt Count (150-450) k/uL MPV Neutrophils % % Lymphocytes % % Monocytes % % Eosinophils % % Basophils % % Neutrophils # (1.3-7.7) k/uL Lymphocytes # (1.0-4.8) k/uL Monocytes # (0-1.0) k/uL Eosinophils # (0-0.7) k/uL Basophils # (0-0.2) k/uL Hypochromasia Anisocytosis PT (10.0-12.5) sec INR (<1.2) APTT (22.0-30.0) sec Sodium 139 (137-145) mmol/L Potassium 4.0 (3.5-5.1) mmol/L Chloride 112 H (98-107) mmol/L Carbon Dioxide 22 (22-30) mmol/L Anion Gap 5 mmol/L BUN 19 (9-20) mg/dL Creatinine 1.08 (0.66-1.25) mg/dL Est GFR (CKD-EPI)AfAm 75 (>60 ml/min/1.73 sqM) Est GFR (CKD-EPI)NonAf 65 (>60 ml/min/1.73 sqM) Glucose 88 (74-99) mg/dL POC Glucose (mg/dL) (70-110) mg/dL POC Glu Field Map Editor ID Calcium 8.9 (8.4-10.2) mg/dL Magnesium 1.7 (1.6-2.3) mg/dL Total Bilirubin 0.8 (0.2-1.3) mg/dL AST 28 (17-59) U/L ALT 24 (4-49) U/L Alkaline Phosphatase 102 (38-126) U/L Troponin I 0.021 (0.000-0.034) ng/mL NT-Pro-B Natriuret Pep 303 pg/mL Total Protein 6.2 L (6.3-8.2) g/dL Albumin 3.6 (3.5-5.0) g/dL Urine Color Urine Appearance (Clear) Urine pH (5.0-8.0) Ur Specific [place] (1.001-1.035) Urine Protein (Negative) Urine Glucose (UA) (Negative) Urine Ketones (Negative) Urine Blood (Negative) Urine Nitrite (Negative) Urine Bilirubin (Negative) Urine Urobilinogen (<2.0) mg/dL Ur Leukocyte Esterase (Negative) Urine RBC (0-5) /hpf Urine WBC (0-5) /hpf Ur Squamous Epith Cells (0-4) /hpf Hyaline Casts (0-2) /lpf Urine Mucus (None) /hpf Influenza Type A (PCR) Not Detected (Not Detectd) Influenza Type B (PCR) Not Detected (Not Detectd) RSV (PCR) Not Detected (Not Detectd) SARS-CoV-2 (PCR) Not Detected (Not Detectd) 03/06/24 03/06/24 Range/Units 12:17 13:05 WBC (3.8-10.6) k/uL RBC (4.30-5.90) m/uL Hgb (13.0-17.5) gm/dL Hct (39.0-53.0) % MCV (80.0-100.0) fL MCH (25.0-35.0) pg MCHC (31.0-37.0) g/dL RDW (11.5-15.5) % Plt Count (150-450) k/uL MPV Neutrophils % % Lymphocytes % % Monocytes % % Eosinophils % % Basophils % % Neutrophils # (1.3-7.7) k/uL Lymphocytes # (1.0-4.8) k/uL Monocytes # (0-1.0) k/uL Eosinophils # (0-0.7) k/uL Basophils # (0-0.2) k/uL Hypochromasia Anisocytosis PT (10.0-12.5) sec INR (<1.2) APTT (22.0-30.0) sec Sodium (137-145) mmol/L Potassium (3.5-5.1) mmol/L Chloride (98-107) mmol/L Carbon Dioxide (22-30) mmol/L Anion Gap mmol/L BUN (9-20) mg/dL Creatinine (0.66-1.25) mg/dL Est GFR (CKD-EPI)AfAm (>60 ml/min/1.73 sqM) Est GFR (CKD-EPI)NonAf (>60 ml/min/1.73 sqM) Glucose (74-99) mg/dL POC Glucose (mg/dL) (70-110) mg/dL POC Glu Field Map Editor ID Calcium (8.4-10.2) mg/dL Magnesium (1.6-2.3) mg/dL Total Bilirubin (0.2-1.3) mg/dL AST (17-59) U/L ALT (4-49) U/L Alkaline Phosphatase (38-126) U/L Troponin I 0.019 (0.000-0.034) ng/mL NT-Pro-B Natriuret Pep pg/mL Total Protein (6.3-8.2) g/dL Albumin (3.5-5.0) g/dL Urine Color Light Yellow Urine Appearance Clear (Clear) Urine pH 5.5 (5.0-8.0) Ur Specific [place] 1.033 (1.001-1.035) Urine Protein 1+ H (Negative) Urine Glucose (UA) 4+ H (Negative) Urine Ketones Negative (Negative) Urine Blood Small H (Negative) Urine Nitrite Negative (Negative) Urine Bilirubin Negative (Negative) Urine Urobilinogen <2.0 (<2.0) mg/dL Ur Leukocyte Esterase Negative (Negative) Urine RBC <1 (0-5) /hpf Urine WBC 1 (0-5) /hpf Ur Squamous Epith Cells <1 (0-4) /hpf Hyaline Casts 1 (0-2) /lpf Urine Mucus Occasional H (None) /hpf Influenza Type A (PCR) (Not Detectd) Influenza Type B (PCR) (Not Detectd) RSV (PCR) (Not Detectd) SARS-CoV-2 (PCR) (Not Detectd) - EKG Data -: EKG Interpreted by Me EKG Comments: 12-lead Electrocardiogram Interpretation Note EKG was reviewed and interpreted by myself. 12-lead ECG performed at 0946 is interpreted by me as revealing paced rhythm at a rate of 74 beats per minute. Left axis deviation. DC interval is 254 ms, QRS durations 181 ms, QTc is 470 ms. Chronic appearing nonspecific ST segment and T wave changes secondary to the paced rhythm. There were no ST or T wave abnormalities to suggest myocardial ischemia or injury. R wave progression is delayed.. By my interpr etation this EKG is non-diagnostic for acute ischemia. 12-lead Electrocardiogram Interpretation Note EKG was reviewed and interpreted by myself. 12-lead ECG performed at 1014 is interpreted by me as revealing paced rhythm at a rate of 71 beats per minute. Left axis deviation. DC interval is 270 ms, QRS duration is 165 ms, QTc is 477 ms.. [address] segment and T wave abnormality secondary to patient's paced rhythm.. R wave progression is delayed.. By my interpretation this EKG is non-diagnostic for acute ischemia. No dynamic changes when compared with EKG from earlier today. Disposition Clinical Impression: Chest pain Disposition: HOME SELF-CARE Condition: Good Instructions (If sedation given, give patient instructions): Chest Pain (ED) Additional Instructions: Follow-up at your cardiology appointment that was scheduled on Wednesday. Please return to the emergency department for any worsening symptoms. Use your home nitroglycerin tablets if symptoms return. Please return to the ER with any concerns. Is patient prescribed a controlled substance at d/c from ED?: No Referrals: Triny Weathers DO [Primary Care Provider] - 1-2 days Briana Perrin NPC [Nurse Practitioner] - 03/08/24 9:30 am Time of Disposition: 13:50
[2024-03-06] MEDS: METOPROLOL SUCCINATE (ER) 50 MG TAB.ER.24H PO STA (10:47)
--- NOTE | 2024-03-06 11:03 | XR ---
EXAMINATION TYPE: XR chest 2V DATE OF EXAM: 03/06/2024 10:09 AM COMPARISON: 12/09/2023 CLINICAL INDICATION: Male, 78 years old with history of Chest Pain, , TECHNIQUE: AP and lateral views FINDINGS: Left anterior chest wall pacemaker generator read right atrial and right ventricular leads. Median st ernotomy wires and post-CABG clips. Heart borderline in size. Left base is underpenetrated and not we ll assessed. No marina consolidation or pleural effusion seen. [facility] mid thoracic spine. IMPRESSION: Limitations due to body habitus. Borderline heart size. Post-CABG changes. No definite acute process. [facility], , 03/06/2024 11:00 AM
[2024-03-06 12:16] VITALS: RESP 18
[2024-03-06 12:50] LABS: Appearance,Urine Clear (Clear); Bilirubin,Urine Negative (Negative); Blood,Urine Small (Negative); Color,Urine Light Yellow; Glucose,Urine (UA) 4+ (Negative); Hyaline Casts,Urine 1 /lpf (0-2); Ketones,Urine Negative (Negative); Leukocyte Esterase,Urine Negative (Negative); Mucus,Urine Occasional /hpf; Nitrite,Urine Negative (Negative); PH, Urine 5.5 (5.0-8.0); Protein,Urine 1+ (Negative); RBC,Urine <1 /hpf (0-5); Specific Gravity,Urine 1.033 (1.001-1.035); Squamous Epithelial Cell,Urine <1 /hpf (0-4); Urobilinogen,Urine <2.0 mg/dL (<2.0); WBC,Urine 1 /hpf (0-5)
[2024-03-06 14:03] VITALS: BP 126/73; PULSE 71; TEMP 97.9
== END 2024-03-06 14:07 | disposition home or self-care (01) ==
LOC: EC 09:43
DX: R07.89 Other chest pain (principal); I25.10 Atherosclerotic heart disease of native coronary artery without angina pectoris; I48.91 Unspecified atrial fibrillation; Z88.1 Allergy status to other antibiotic agents; Z11.52 Encounter for screening for COVID-19; Z95.0 Presence of cardiac pacemaker; Z95.1 Presence of aortocoronary bypass graft
CPT/HCPCS: 36415; 93005; 83880; 80053; 83735; 84484; 85025; 85610; 85730; 81001; 87636; 71046; 99285; 96374; 96361; J2470

== ENCOUNTER → 2024-06-14 | Outpatient (CLI) | payer MEDICARE, BC ==
[2024-06-14 09:11] LABS: African American GFR (CKD) 61 (>60 ml/min/1.73 sqM); Blood Urea Nitrogen 19 mg/dL (9-20); Non-African American GFR(CKD) 53 (>60 ml/min/1.73 sqM)
--- NOTE | 2024-06-14 09:47 | CT ---
EXAMINATION TYPE: CT chest w con DATE OF EXAM: 06/14/2024 9:35 AM COMPARISON: Chest radiograph, CT CLINICAL INDICATION: Male, 78 years old with history of R91.8 OTHER NONSPECIFIC ABNORMAL FINDING OF L CARINA F, Abnormal findings of lung robin TECHNIQUE: Multiple axial images were obtained through the chest. Sagittal and coronal reformats were created for review. MIP was performed on a separate workstation. Contrast used:80 ml mL of Isovue 300 with IV Contrast (None if empty) Oral contrast used: (None if empty) CT DLP: 635.10 mGycm, Automated exposure control for dose reduction was used. FINDINGS: LUNGS/ PLEURA: No focal consolidation, pneumothorax or pleural effusion. AIRWAY: Patent and unremarkable. HEART: Cardiomegaly is demonstrated.Increased density within the coronary arteries may relate to scle rosis versus vascular stents. Thickening and calcification of aortic valve present. Cardiac conducti on leads terminating in the right ventricle and right atrium. MEDIASTINUM: No gross evidence of adenopathy. Large left epicardial fat pad. VASCULATURE: No aortic aneurysm. 4 vessel aortic arch. MUSCULOSKELETAL: No acute osseous abnormalities, sternotomy wires are present. SOFT TISSUES/LYMPH NODES: Unremarkable. LOWER NECK: No significant findings. UPPER ABDOMEN: Gallbladder surgically absent. Left renal cortical cyst. IMPRESSION: 1. Large left epicardial fat pad. No evidence for acute process. 2. Mild cardiomegaly. 3. Post CABG changes. 4. Aortic valve repair changes. [facility], , 06/14/2024 9:45 AM
--- NOTE | 2024-06-14 12:51 | FL ---
EXAMINATION TYPE: FL sniff test without CXR DATE OF EXAM: 06/14/2024 COMPARISON: Chest radiograph 05/24/2024 HISTORY: 78-year-old male R91.8, patient having shortness of breath, dizzy spells. Patient with TAVR last July and CABG in 2018. TECHNIQUE: Real-time fluoroscopy during quiet breathing, deep inspiration expiration, and sniffing ma neuver. Total dose: 33.46 mGycm2 Fluoroscopy time: 0.47 minutes. Total images: 10. FINDINGS: Median sternotomy wires and plate and screw fixation related to prior CABG. Endovascular ao rtic valve replacement also noted. Right atrial and right ventricular pacer leads are demonstrated. There is normal slight asymmetric elevation right hemidiaphragm. Symmetric movement and excursion of the bilateral hemidiaphragms with normal breathing, deep breathin g, and sniffing maneuver. IMPRESSION: Normal sniff test. [facility], , 06/14/2024 12:49 PM
== END | disposition home or self-care (01) ==
LOC: RADCTMAIN 08:02
PROVIDERS: ATTEND Internal Medicine
DX: J98.6 Disorders of diaphragm (principal); I51.7 Cardiomegaly; R91.8 Other nonspecific abnormal finding of lung field; Z95.1 Presence of aortocoronary bypass graft
CPT/HCPCS: 82565; 84520; 76000; 71260; 36415; Q9967

== ENCOUNTER → 2024-06-21 | Outpatient (CLI) | payer MEDICARE, BC ==
[2024-06-21 18:36] LABS: HGB 11.3 g/dL (13.0-17.0); MCH 22.4 pg (27.0-32.0); MCV 77.4 FL (80.0-97.0); Mean Platelet Volume 11.3 FL (9.5-12.2); NRBC Per 100 WBC 0 X 10*3/uL (0.00-0.01); Platelet Count 182 X 10*3/uL (140-440); RBC 5.04 X 10*6/uL (4.40-5.60); RDW 15.9 % (11.5-14.5); WBC 7.36 X 10*3/uL (4.50-10.00)
[2024-06-21 21:09] LABS: BUN/Creat Ratio 16.92 Ratio (12.00-20.00); Calcium 9.5 mg/dL (8.7-10.3); Carbon Dioxide 22.6 mmol/L (21.6-31.8); Chloride 108 mmol/L (96-109); Glucose 126 mg/dL (70-110); Potassium 4.7 mmol/L (3.5-5.5); Sodium 141 mmol/L (135-145)
== END | disposition home or self-care (01) ==
LOC: LABWHC1 14:28
PROVIDERS: ATTEND Thoracic Surgery (Cardiothoracic Vascular Surgery)
DX: I35.1 Nonrheumatic aortic (valve) insufficiency (principal)
CPT/HCPCS: 36415; 80048; 85027

== ENCOUNTER → 2024-07-13 | Outpatient (CLI) | payer MEDICARE, BC ==
--- NOTE | 2024-07-13 13:21 | NM ---
EXAMINATION TYPE: NM gastric emptying static DATE OF EXAM: 07/13/2024 COMPARISON: NONE CLINICAL INDICATION: Male, 78 years old with history of R10.9 unspecified abdominal pain; Following administration of 1.95 mCi Tc 99m Sulfur Colloid with 4oz eggs, 2 pieces of toast and 8oz o f water., projection images of the abdomen were obtained 10 minutes post ingestion. Patient Emptying Values 1 Hour 27 % 2 Hours 35 % 3 Hours 69 % 4 Hours 98 % Gastroesophagel reflux: None Mildly delayed emptying at 1 hour, 2 hours and 3 hours. Normal gastric emptying at 4 hours. IMPRESSION: Gastric emptying: Mild delayed emptying of the gastric contents. Gastroesophageal reflux: Not identified [facility], , 07/13/2024 1:18 PM
== END | disposition home or self-care (01) ==
LOC: RADNMMAIN 06:54
PROVIDERS: ATTEND Internal Medicine Gastroenterology
DX: K30 Functional dyspepsia (principal)
CPT/HCPCS: 78264; A9541

== ENCOUNTER → 2024-07-31 | Outpatient (CLI) | payer MEDICARE, BC ==
--- NOTE | 2024-07-31 13:33 | FL ---
EXAMINATION TYPE: FL UGI air w small bowel DATE OF EXAM: 07/31/2024 CLINICAL HISTORY: pain TECHNIQUE: An air contrast UGI study is performed with small bowel follow through. COMPARISON: none FINDINGS: Managing Consultant image of the abdomen shows no gross abnormality. The esophagus shows normal motility and emptying into the stomach. No evidence of hiatal hernia or s tricture noted. The stomach shows normal distensibility, peristalsis, and mucosal folds. No evidence of any mass or ulcer disease. No significant esophageal reflux was seen during real time performance of this study. The duodenal bulb and sweep are unremarkable. The small bowel study shows normal transit to the colon in less than 180 minutes. There is normal mu cosal fold pattern throughout the small bowel. There is no evidence of any stricture or filling defe ct noted. The terminal ileum is unremarkable. IMPRESSION: Normal upper GI study and small bowel follow through. [facility], , 07/31/2024 1:30 PM
== END | disposition home or self-care (01) ==
LOC: RADFLMAIN 09:20
PROVIDERS: ATTEND Internal Medicine Gastroenterology
DX: R10.9 Unspecified abdominal pain (principal)
CPT/HCPCS: 74240; 74248

== ENCOUNTER → 2024-08-28 | Outpatient (CLI) | payer MEDICARE, BC ==
[2024-08-28 11:17] VITALS: BP 155/92; PULSE 59; RESP 17
--- NOTE | 2024-08-28 12:18 | XR ---
EXAMINATION TYPE: XR lumbar spine 2 or 3V DATE OF EXAM: 08/28/2024 CLINICAL INDICATION: Male, 78 years old with history of M54.16 RADICULOPATHY, LUMBAR REGION, pain TECHNIQUE: Frontal and lateral images of the lumbar spine are obtained. COMPARISON: Lumbar spine x-ray 2010 FINDINGS: There are 5 lumbar type vertebral bodies redemonstrated. The lumbar spine shows stable an d satisfactory alignment . Vertebral body heights remain within normal limits. Mild to moderate multi level disc space narrowing and moderate multilevel spurring is now present. Cholecystectomy clips are seen in the overlying soft tissues. IMPRESSION: As above. [facility], , 08/28/2024 12:16 PM
--- NOTE | 2024-08-30 10:59 | P.PAINPG ---
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 Pt states pain level is provoked at 4-6 /10 in intensity, constant, localized in the lumbar spine, predominantly axial, sharp in character without shooting pain. Pain is provoked by over activity. Pain is alleviated by heat, ice, medications, topical use of a TENS unit at home, repositioning and rest . Oswestry axial pain score at 28. PMH: OA, aFib, Asthma, CAD, Skin CA, CVA, Diabetes Mellitus, GERD, Hyperlipidemia, HTN, BPH, RAVEN, PVD, Pernicious Anemia, HH PSH: Bowel Resection (1957), Cholecystectomy, Coronary Bypass/CABG x2 (2018), Heart Catheterization, BL Cataract Extraction w Lens Implants, Umbilical Hernia Repair, Joint Replacement, Colonoscopy SH: Negative x3 FH: Fa- CHF, CVA, age 67. Mo- DVT, PA, age 78. Bro- CA, CAD, DM All: See list Medications include [place], Neurontin (2023) REVIEW OF ORGAN SYSTEMS: CONSTITUTIONAL: No fevers or chills. No recent weight loss. NEUROLOGICAL: + numbness and tingling along the distal extremities. No seizure disorders or headaches. MUSCULOSKELETAL: + pain PSYCHIATRIC: Denies current depression or suicidal thoughts. Physical Examinations : Constitutional : Cooperative , not in acute distress . Neurologic : Cranial nerve II to XII intact. No focal neurological deficits. Psychiatric : alert & oriented x 3. Matching mood & appropriate affect. Judgment & insight intact. Musculoskeletal : Cervical Spine Motor strength in the deltoid and biceps: Normal right side. Normal Left side Motor strength biceps and the wrist extensors: Normal right side . Normal left side Motor strength in the triceps muscle: Normal right side. Normal left side Deep tendon reflexes: Normal at the biceps. Normal at Brachioradialis. Normal at triceps Vertebral body tenderness to deep palpation over Cervical facet loading test: positive bilaterally Spurling test: positive bilaterally Neck distraction test: positive bilaterally Jany sign: positive bilaterally Lumbar spine Motor strength lower extremities ,thigh and legs 5/5 Right side , 5/5 Left side Deep tendon reflexes : Normal Knee Jerk. Normal Ankle Jerk Vertebral body tenderness over Chew Test positive Lumbar facet Loading Test: positive Right / positive Left Range of motion of the lumbar spine Flexion 30 degrees, extension 10 degrees Straight Leg Raise test: Left/ Right positive at degrees Candice test: positive right / positive left. Severe tenderness over the Sacroiliac joint on the Right / Left sides Gaenslen test: positive bilaterally Seated flexion test: positive bilaterally. Sacral spine : Severe tenderness over the Sacroiliac joint: right side / left side Range of motion: Flexion of the lumbar spine <60 degrees Range of motion: Extension of the lumbar spine <20 degrees Gaenslen's Test positive Candice test: positive right side / left side Thigh Thrust Test Sacral Thrust Test Imaging: MRI non contrast lumbar spine from 06/11/21 reviewed Assessment/ Plan : L1-L2 retrolisthesis, lumbar radiculopathy Recommendation of lumbar x ray M54.16. All questions answered. I have spent greater than 30 minutes on patient care today. Dr Ji was available by phone for the evaluation of this patient. The time was used to review the medical records including relevant urine studies and Prescription history (MAPs), review of the available imaging, evaluation and examination of the patient, coordination of care with the medical staff and if applicable referring physicians, as well as creation of the medical record - Pain Location Lower Medial Back Non-Pharmacological Interventions: Heat, Ice, TENS Unit Pharmacological Interventions: Medication, Topical Medication PQRS Narrative: Smoking Status Never smoker Blood Pressure 155/92 Pain Intensity [Lower Medial 5 Back] Scale Used Numeric (1 - 10) Hx Alcohol Use (MH) No Home Medications: Ambulatory Orders Multivitamin [Men's Multi-Vitamin] 1 tab PO DAILY 04/01/15 Tamsulosin HCl [Flomax] 0.4 mg PO DAILY 10/09/18 Metoprolol Succinate (ER) [Toprol XL] 50 mg PO BID 12/20/18 Atorvastatin [Lipitor] 40 mg PO HS 09/22/20 Cholecalciferol [Vitamin D3 (25 Mcg = 1000 Iu)] 25 mcg PO DAILY 09/22/20 Apixaban [Eliquis] 5 mg PO BID 08/24/21 Cyanocobalamin (Vitamin B-12) [Vitamin B-12] 5,000 mcg PO DAILY 05/07/22 Gabapentin [Neurontin] 300 mg PO DAILY 07/14/22 Canagliflozin [Invokana] 300 mg PO DAILY 07/15/23 Gabapentin 600 mg PO HS 12/09/23 HYDROcodone/APAP 7.5-325MG [[place] 7.5-325] 1 tab PO Q6H PRN 03/06/24 Pantoprazole [Protonix] 40 mg PO DAILY 03/06/24 Tirzepatide [Mounjaro] 7.5 mg SQ TH 03/06/24 Controlled Substance Measures - Controlled Substance Measures Is patient prescribed a controlled substance at discharge?: No
== END ==
LOC: PNWHC3 10:57
PROVIDERS: ATTEND Specialist
DX: M43.16 Spondylolisthesis, lumbar region (principal); M51.360 Other intervertebral disc degeneration, lumbar region with discogenic back pain only; M47.26 Other spondylosis with radiculopathy, lumbar region; Z88.1 Allergy status to other antibiotic agents
CPT/HCPCS: 72100; G0463; 99202

== ENCOUNTER → 2024-09-28 | Outpatient (CLI) | payer MEDICARE, BC ==
[2024-09-28 11:07] VITALS: BP 166/76; PULSE 67; RESP 16; TEMP 97.7
--- NOTE | 2024-09-28 16:21 | P.PAINPG ---
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 Pt states pain level is provoked at 9-10 /10 in intensity, constant, localized in the lumbar spine, predominantly axial, sharp in character w shooting pain down the sides of the thighs. Pain is provoked by over activity. Pain is alleviated by chiropractic treatments monthly since 2017 which he is currently in, physician guided stretches daily since 2021, heat, ice, medications, topical use of a TENS unit at home, repositioning and rest . Pt is frail and not a candidate for intense PT sessions. Oswestry axial pain score at 28. Interventional procedures include Medications include [place], Neurontin (2023), ASA REVIEW OF ORGAN SYSTEMS: CONSTITUTIONAL: No fevers or chills. No recent weight loss. NEUROLOGICAL: + numbness and tingling along the distal extremities. No seizure disorders or headaches. MUSCULOSKELETAL: + pain PSYCHIATRIC: Denies current depression or suicidal thoughts. Physical Examinations : Constitutional : Cooperative , not in acute distress . Neurologic : Cranial nerve II to XII intact. No focal neurological deficits. Psychiatric : alert & oriented x 3. Matching mood & appropriate affect. Judgment & insight intact. Musculoskeletal : Cervical Spine Motor strength in the deltoid and biceps: Normal right side. Normal Left side Motor strength biceps and the wrist extensors: Normal right side . Normal left side Motor strength in the triceps muscle: Normal right side. Normal left side Deep tendon reflexes: Normal at the biceps. Normal at Brachioradialis. Normal at triceps Vertebral body tenderness to deep palpation over Cervical facet loading test: positive bilaterally Spurling test: positive bilaterally Neck distraction test: positive bilaterally Jany sign: positive bilaterally Lumbar spine Motor strength lower extremities ,thigh and legs 5/5 Right side , 5/5 Left side Deep tendon reflexes : Normal Knee Jerk. Normal Ankle Jerk Vertebral body tenderness over L4 Chew Test positive BL L4-L5 Lumbar facet Loading Test: positive Right / positive Left Range of motion of the lumbar spine Flexion 30 degrees, extension 10 degrees Straight Leg Raise test: Left/ Right positive at degrees Candice test: positive right / positive left. Severe tenderness over the Sacroiliac joint on the Right / Left sides Gaenslen test: positive bilaterally Seated flexion test: positive bilaterally. Sacral spine : Severe tenderness over the Sacroiliac joint: right side / left side Range of motion: Flexion of the lumbar spine <60 degrees Range of motion: Extension of the lumbar spine <20 degrees Gaenslen's Test positive Candice test: positive right side / left side Thigh Thrust Test Sacral Thrust Test Imaging: MRI non contrast lumbar spine from 06/11/21 reviewed Assessment/ Plan : L1-L2 retrolisthesis, multilevel lumbar radiculopathy, L4-L5 anterolisthesis, L5-S1 vacuum phenomenon, facet arthropathy Recommendation of JOSE L4-L5 #1. Risks, benefits of procedure discussed and pt verbalized understanding. Protocol for discontinuation/ continuation of medications fabrizio procedure discussed. All questions answered. I have spent greater than 30 minutes on patient care today. Dr Ji was available by phone for the evaluation of this patient. The time was used to review the medical records including relevant urine studies and Prescription history (MAPs), review of the available imaging, evaluation and examination of the patient, coordination of care with the medical staff and if applicable referring physicians, as well as creation of the medical record PQRS Narrative: Smoking Status Never smoker Hx Alcohol Use (MH) No Home Medications: Ambulatory Orders Multivitamin [Men's Multi-Vitamin] 1 tab PO DAILY 04/01/15 Tamsulosin HCl [Flomax] 0.4 mg PO DAILY 10/09/18 Metoprolol Succinate (ER) [Toprol XL] 50 mg PO BID 12/20/18 Atorvastatin [Lipitor] 40 mg PO HS 09/22/20 Cholecalciferol [Vitamin D3 (25 Mcg = 1000 Iu)] 25 mcg PO DAILY 09/22/20 Apixaban [Eliquis] 5 mg PO BID 08/24/21 Cyanocobalamin (Vitamin B-12) [Vitamin B-12] 5,000 mcg PO DAILY 05/07/22 Gabapentin [Neurontin] 300 mg PO DAILY 07/14/22 Canagliflozin [Invokana] 300 mg PO DAILY 07/15/23 Gabapentin 600 mg PO HS 12/09/23 HYDROcodone/APAP 7.5-325MG [[place] 7.5-325] 1 tab PO Q6H PRN 03/06/24 Pantoprazole [Protonix] 40 mg PO DAILY 03/06/24 Tirzepatide [Mounjaro] 7.5 mg SQ TH 03/06/24 Albuterol Sulfate [Albuterol Sulfate Hfa] 09/28/24 Aspirin [Adult Low Dose Aspirin EC] 81 mg PO 09/28/24 Citalopram Hydrobromide [CeleXA] 20 mg PO DAILY 09/28/24 Furosemide [Lasix] 20 mg PO DAILY 09/28/24 Controlled Substance Measures - Controlled Substance Measures Is patient prescribed a controlled substance at discharge?: No
== END ==
LOC: PNWHC3 10:49
PROVIDERS: ATTEND Specialist
DX: M47.26 Other spondylosis with radiculopathy, lumbar region (principal); M43.17 Spondylolisthesis, lumbosacral region; Z88.1 Allergy status to other antibiotic agents; Z91.048 Other nonmedicinal substance allergy status
CPT/HCPCS: 99211

== ENCOUNTER 2024-10-10 11:30 | Day surgery (SDC) | payer MEDICARE, BC ==
[~2024-10-10 11:30] MED LIST changes: -ALPRAZolam 0.25 MG TAB PO PRN; -ALPRAZolam 0.5 MG TAB PO PRN; -ASPIRIN 325 MG TAB PO STA; -HEPARIN SODIUM,PORCINE (1 ML) 2,500 UNIT in SODIUM CHLORIDE 0.9% 250 ML IRRIGATION PRN; -HEPARIN SODIUM,PORCINE 10,000 UNIT in SODIUM CHLORIDE 0.9% 1,000 ML IRRIGATION PRN; +LACTATED RINGERS 1,000 ML IV SCH; -NITROGLYCERIN SL TABS 0.4 MG TAB SUBLINGUAL PRN; -SODIUM CHLORIDE 0.9% 1,000 ML in EMPTY BAG 1 BAG IV SCH
[2024-10-10 11:55] VITALS: TEMP 97.7
[2024-10-10 12:02] LABS: Glucose,Whole Blood 90 mg/dL (70-110)
[2024-10-10] MEDS ORDERED: IOPAMIDOL M300 15ML VIAL ONE (12:25)
[2024-10-10] MEDS ORDERED: methylPREDNISolone ACETATE 80 MG/ML 1 ML VIAL ONE (12:25)
--- NOTE | 2024-10-10 12:42 | P.PCN ---
Description of Procedure: PREOPERATIVE DIAGNOSIS: 1- Lumbar Degenerative Disc Diseases 2-Lumbar spondylosis with Facet arthropathy without myelopathy. 3-lumbar spinal stenosis 4-Lumber radiculopathy POSTOPERATIVE DIAGNOSIS: 1-lumbar degenerative disc disease. 2-lumbar spondylosis with facet arthropathy without myelopathy. 3-lumbar spinal stenosis. 4-Lumber radiculopathy PROCEDURE Injection of radio contrast material into L4-5 interspace, interpretation of epidurogram, injection of steroid at L4- 5 epidural space under fluoroscopic guidance. ANESTHESIA: Lidocaine 1% subcutaneously. In OR continuous pulse ox, EKG, blood pressure and verbal communication was maintained with the patient. EBL: Minimal PROCEDURE INDICATION: Before the procedure were discussed with the patient detailed procedure, alternatives, complications including infection, bleeding, nerve damage, paralysis all of which could be permanent. Patient understands and all questions were answered. PROCEDURE DESCRIPTION : After getting consent, patient in OR in prone position. Back was prepped with chlorhexidine and draped in sterile fashion. After injecting 10 mL of 1% lidocaine subcutaneously, a 20-gauge Tuohy needle was introduced at L4 5 interspace with loss of resistance technique using a syringe filled with air. Negative CSF, negative blood, negative paresthesia. Needle position was confirmed with AP and lateral view of the fluoroscope. After repeat negative aspiration 2 mL of Omnipaque 200 water soluble contrast was injected. Contrast was noted in the epidural space. No contrast was noted into intrathecal or intravascular space. After repeat negative aspiration 6 mL solution was injected intermittently which consists of 5 mL of preservative-free normal saline mixed with 1 mL of 80 mg Depo-Medrol. Needle was withdrawn intact. Skin was cleansed and Band-Aids was applied. DISPOSITION / PLANS: The patient tolerated the procedure well. No complication. The patient was placed in a supine position and transferred to the recovery area in a stable condition for observation. There was no evidence of lower extremity motor or sensory deficit after the procedure. Patient was discharged from the recovery room after meeting discharge criteria. Home discharge instructions were given to the patient by the staff. The patient was reexamined prior to discharge. The patient will schedule a follow up in the clinic in 2-4 weeks.
[2024-10-10 12:46] VITALS: RESP 17
[2024-10-10 13:00] VITALS: BP 122/48; PULSE 59
--- NOTE | 2024-10-10 14:38 | FL ---
MORAIMA FLUORO TIME 15 SEC DAP .[id number] [facility], , 10/10/2024 2:35 PM
== END 2024-10-10 13:18 | disposition home or self-care (01) ==
LOC: ORPAIN 11:30
PROVIDERS: ATTEND Pain Medicine Interventional Pain Medicine
DX: M47.26 Other spondylosis with radiculopathy, lumbar region (principal); M51.16 Intervertebral disc disorders with radiculopathy, lumbar region; M48.061 Spinal stenosis, lumbar region without neurogenic claudication; E11.9 Type 2 diabetes mellitus without complications; Z79.82 Long term (current) use of aspirin; Z79.01 Long term (current) use of anticoagulants; Z88.8 Allergy status to other drugs, medicaments and biological substances
CPT/HCPCS: 62323; Q9967; J1010

== ENCOUNTER → 2024-11-02 | Outpatient (CLI) | payer MEDICARE, BC ==
[2024-11-02 11:13] VITALS: BP 131/79; PULSE 75; RESP 16; TEMP 97.6
--- NOTE | 2024-11-02 12:52 | P.PAINPG ---
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 Pt states he experienced 50% pain relief x 2 wks s/p procedure. Pt states pain level is provoked at 9-10 /10 in intensity, constant, localized in the lumbar spine, predominantly axial, sharp in character w shooting pain down the sides of the thighs. Pain is provoked by over activity. Pain is alleviated by chiropractic treatments monthly since 2017 which he is currently in, physician guided stretches daily since 2021, heat, ice, medications, topical use of a TENS unit at home, repositioning and rest . Pt is frail and not a candidate for intense PT sessions. Oswestry axial pain score at 28. Interventional procedures include JOSE L4-L5 #1 Medications include [place], Neurontin (2023), ASA, [place], Eliquis REVIEW OF ORGAN SYSTEMS: CONSTITUTIONAL: No fevers or chills. No recent weight loss. NEUROLOGICAL: + numbness and tingling along the distal extremities. No seizure disorders or headaches. MUSCULOSKELETAL: + pain PSYCHIATRIC: Denies current depression or suicidal thoughts. Physical Examinations : Constitutional : Cooperative , not in acute distress . Neurologic : Cranial nerve II to XII intact. No focal neurological deficits. Psychiatric : alert & oriented x 3. Matching mood & appropriate affect. Judgment & insight intact. Musculoskeletal : Cervical Spine Motor strength in the deltoid and biceps: Normal right side. Normal Left side Motor strength biceps and the wrist extensors: Normal right side . Normal left side Motor strength in the triceps muscle: Normal right side. Normal left side Deep tendon reflexes: Normal at the biceps. Normal at Brachioradialis. Normal at triceps Vertebral body tenderness to deep palpation over Cervical facet loading test: positive bilaterally Spurling test: positive bilaterally Neck distraction test: positive bilaterally Jany sign: positive bilaterally Lumbar spine Motor strength lower extremities ,thigh and legs 5/5 Right side , 5/5 Left side Deep tendon reflexes : Normal Knee Jerk. Normal Ankle Jerk Vertebral body tenderness over L5 Chew Test positive BL L4-L5 Lumbar facet Loading Test: positive Right / positive Left Range of motion of the lumbar spine Flexion 30 degrees, extension 10 degrees Straight Leg Raise test: Left/ Right positive at <30 degrees Candice test: positive right / positive left. Severe tenderness over the Sacroiliac joint on the Right / Left sides Gaenslen test: positive bilaterally Seated flexion test: positive bilaterally. Sacral spine : Severe tenderness over the Sacroiliac joint: right side / left side Range of motion: Flexion of the lumbar spine <60 degrees Range of motion: Extension of the lumbar spine <20 degrees Gaenslen's Test positive Candice test: positive right side / left side Thigh Thrust Test Sacral Thrust Test Imaging: MRI non contrast lumbar spine from 06/11/21 reviewed Assessment/ Plan : L1-L2 retrolisthesis, multilevel lumbar radiculopathy, L4-L5 anterolisthesis, L5-S1 vacuum phenomenon, facet arthropathy Recommendation of BL TFESI L5-S1 #1. Risks, benefits of procedure discussed and pt verbalized understanding. Protocol for discontinuation/ continuation of medications fabrizio procedure discussed. All questions answered. I have spent greater than 30 minutes on patient care today. Dr Ji was available by phone for the evaluation of this patient. The time was used to review the medical records including relevant urine studies and Prescription history (MAPs), review of the available imaging, evaluation and examination of the patient, coordination of care with the medical staff and if applicable referring physicians, as well as creation of the medical record PQRS Narrative: Smoking Status Never smoker Hx Alcohol Use (MH) No Home Medications: Ambulatory Orders Multivitamin [Men's Multi-Vitamin] 1 tab PO DAILY 04/01/15 Tamsulosin HCl [Flomax] 0.4 mg PO DAILY 10/09/18 Metoprolol Succinate (ER) [Toprol XL] 50 mg PO BID 12/20/18 Atorvastatin [Lipitor] 40 mg PO HS 09/22/20 Cholecalciferol [Vitamin D3 (25 Mcg = 1000 Iu)] 25 mcg PO DAILY 09/22/20 Apixaban [Eliquis] 5 mg PO BID 08/24/21 Cyanocobalamin (Vitamin B-12) [Vitamin B-12] 5,000 mcg PO DAILY 05/07/22 Gabapentin [Neurontin] 300 mg PO DAILY 07/14/22 Canagliflozin [Invokana] 300 mg PO DAILY 07/15/23 Gabapentin 600 mg PO HS 12/09/23 HYDROcodone/APAP 7.5-325MG [[place] 7.5-325] 1 tab PO Q6H PRN 03/06/24 Pantoprazole [Protonix] 40 mg PO DAILY 03/06/24 Tirzepatide [Mounjaro] 7.5 mg SQ GRAVES 03/06/24 Albuterol Sulfate [Albuterol Sulfate Hfa] 1 - 2 inh INHALATION QID PRN 09/28/24 Aspirin [Adult Low Dose Aspirin EC] 81 mg PO DAILY 09/28/24 Citalopram Hydrobromide [CeleXA] 20 mg PO DAILY 09/28/24 Furosemide [Lasix] 20 mg PO DAILY 09/28/24 Controlled Substance Measures - Controlled Substance Measures Is patient prescribed a controlled substance at discharge?: No
== END ==
LOC: PNWHC3 10:57
PROVIDERS: ATTEND Specialist
DX: M47.26 Other spondylosis with radiculopathy, lumbar region (principal); M43.17 Spondylolisthesis, lumbosacral region; Z88.1 Allergy status to other antibiotic agents; Z91.048 Other nonmedicinal substance allergy status
CPT/HCPCS: 99211